=== PATIENT | female | born 1960 | race Caucasian/White ===

== ENCOUNTER 2020-09-06 07:55 | Outpatient (CLI) | payer MEDICARE, OTHER, SELFPAY ==
--- NOTE | ~2020-09-06 | US_ITS ---
US soft tissue chest 09/06/2020 08:41 Indication: Previous bilateral mastectomy. Evaluate for mass. Procedure: High-resolution ultrasound of the chest wall bilaterally Comparison: No prior studies for comparison. Findings: There is normal heterogeneous echotexture throughout the chest wall soft tissues bilaterall y without focal mass or fluid collection. Impression: 1: Normal limited ultrasound of the chest wall bilaterally without evidence for mass. Reviewed, dictated and finalized at location A. ROL OFFICER Impression: 1: Normal limited ultrasound of the chest wall bilaterally without evidence for mass.
--- NOTE | ~2020-09-06 | US_ITS ---
EXAMINATION:US venous doppler LE RT INDICATION:Right calf pain. TECHNIQUE: Multiple grayscale, color flow and Doppler images of the right lower extremity deep venous systems were obtained and reviewed. COMPARISON:09/06/2004 FINDINGS: The common femoral, superficial femoral and popliteal veins demonstrate normal respiratory variation, augmentation and compressibility. Color flow is also seen within the posterior tibial, pe roneal, greater saphenous and profunda veins. IMPRESSION: 1: No lower extremity deep venous thrombosis. Reviewed, dictated and finalized at location A. NG CUTTER
== END 2020-09-06 07:56 | disposition home or self-care (01) ==
PROVIDERS: PCP Internal Medicine; Referring Provider Obstetrics & Gynecology
DX: I82.409 Acute embolism and thrombosis of unspecified deep veins of unspecified lower extremity (principal); M79.661 Pain in right lower leg
CPT/HCPCS: 76604; 93971

== ENCOUNTER 2022-03-18 01:35 | Day surgery (SDC) | payer MEDICARE, OTHER, SELFPAY ==
[2022-03-07 14:27] VITALS: BMI 37.0
--- NOTE | 2022-03-17 09:59 | SUR.PREOP ---
[id number] patient called regarding her magnesium prep. Instructed the patient to not take the magnesium citrate due to recall. Patient voiced understanding.
--- NOTE | 2022-03-17 13:06 | PM.HPGS ---
History of Present Illness History of Present Illness Consent: Risks, benefits, and alternatives have been discussed and questions answered. Patient agrees to proceed with procedure. Chief complaint: neoplasm screening, dysphagia Narrative: Loan Francisco is a 62 year old female Who has been having difficulty swallowing. She is known to have acid reflux. She has been on pantoprazole 20 mg per day. She is also due for colon cancer screening. 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 Pure hypercholesterolemia Thalassemia Type 2 diabetes mellitus with hyperglycemia Surgical History Surgical History H/O breast biopsy H/O cardiac catheterization H/O mastectomy History of cholecystectomy Family History Family History Father Family history of blood dyscrasia Family history of glaucoma Family history of cataracts Asthma Family history of anemia Family history of diabetes mellitus in first degree relative Family history of coronary artery disease Family history of congestive heart failure Family history of heart disease in male family member before age 55 Family history of cardiovascular disease Mother Family history of mental disorder Depression Family history of liver disease Family history of diabetes mellitus in first degree relative Family history of lung disease Family history of hearing loss Family history of lung cancer Social History Social History Smoking status: Never smoker Alcohol intake: never Living arrangements: with family Spiritual care concerns: No Meds Home Medications and Allergies Home Medications Medication Instructions Recorded Confirmed Type alprazolam 0.5 mg tablet 1 mg PO QID PRN Anxiety 06/24/19 03/18/22 History aspirin 81 mg tablet,delayed 81 mg PO DAILY 06/24/19 03/18/22 History release furosemide 20 mg tablet 20 mg PO 2XW 06/24/19 03/18/22 History lamotrigine 100 mg tablet 100 mg PO DAILY 06/24/19 03/18/22 History metformin 1,000 mg tablet 1,000 mg PO BID 06/24/19 03/18/22 History pantoprazole 20 mg tablet,delayed 20 mg PO BID 06/24/19 03/18/22 History release (Protonix) zolpidem 10 mg tablet (Ambien) 5 mg PO ONCE 06/24/19 03/18/22 History cholecalciferol (vitamin D3) 25 25 mcg PO DAILY 06/21/21 03/18/22 History mcg (1,000 unit) capsule dulaglutide 0.75 mg/0.5 mL 0.75 mg subcut WEEKLY 06/21/21 03/18/22 History subcutaneous pen injector (Trulicity) ergocalciferol (vitamin D2) 1,250 1,250 mcg PO WEEKLY 06/21/21 03/18/22 History mcg (50,000 unit) capsule insulin glargine U-300 conc 300 36 unit subcut HS 06/21/21 03/18/22 History unit/mL (1.5 mL) subcutaneous pen (Toujeo SoloStar U-300 Insulin) vitamin E 200 unit capsule 180 unit PO DAILY 06/21/21 03/18/22 History atorvastatin 80 mg tablet 80 mg PO DAILY 03/07/22 03/18/22 History ezetimibe 10 mg tablet 10 mg PO DAILY 03/07/22 03/18/22 History nitrofurantoin 100 mg capsule 100 mg PO Q12H 03/18/22 03/18/22 History Allergies Allergy/AdvReac Type Severity Reaction Status Date / Time levofloxacin Allergy Unknown Hallucinati Verified 03/18/22 06:36 ng Quinolones Allergy Unknown Unknown Verified 03/18/22 06:36 Exam Const: General: alert Orientation/consciousness: patient oriented x3 Resp: Auscultation: clear to auscultation bilaterally Cardio: Rhythm: regular rhythm GI: GI Palp: Yes Soft
[2022-03-18 06:38] VITALS: BP 150/68; PULSE 74; RESP 17; TEMP 36.1; O2SAT 100; BMI 37.2
--- NOTE | 2022-03-18 06:42 | SUR.PREOP ---
Per Dr. Germain give patient ampicillin and gentamicin as ordered,while she is on her oral antibiotic for her UTI, for the coverage of her aortic valve replacement for her EGD and Colonoscopy today.
[2022-03-18] MEDS: LACTATED RINGERS 1,000 ML 150 ML IV CONT (06:56)
[2022-03-18] MEDS: AMPICILLIN 2 GM/NS 100 ML 2 GM/100 ML BAG IVPB (06:58)
[2022-03-18 07:02] LABS: Glucose Point of Care 102 mg/dl (65-105)
--- NOTE | 2022-03-18 07:15 | WPDANESEPPF ---
Anes - Initial Pre Proc Eval Procedure: Operation Date: 03/18/22 07:30 Proposed Procedures p Esophagogastroduodenoscopy & Screening Colonoscopy - Gage Germain MD Date/Time: 03/18/22 07:15 Surgeon: Gage Germain MD Pre Op Diagnosis: neoplasm screening, dysphagia Patient Data Age: 62 Gender: F Height: 1.6 m Weight: 95.3 kg Last Vital Signs Temp 36.1 C L 03/18/22 06:38 Pulse 74 03/18/22 06:38 Resp 17 03/18/22 06:38 BP 150/68 H 03/18/22 06:38 Pulse Ox 100 03/18/22 06:38 O2 Del Method Room Air 03/18/22 06:38 Allergies Allergy/AdvReac Type Severity Reaction Status Date / Time levofloxacin Allergy Unknown Hallucinati Verified 03/18/22 06:36 ng Quinolones Allergy Unknown Unknown Verified 03/18/22 06:36 Home Medications Medication Instructions Recorded Confirmed Type alprazolam 0.5 mg tablet 1 mg PO QID PRN Anxiety 06/24/19 03/18/22 History aspirin 81 mg tablet,delayed 81 mg PO DAILY 06/24/19 03/18/22 History release furosemide 20 mg tablet 20 mg PO 2XW 06/24/19 03/18/22 History lamotrigine 100 mg tablet 100 mg PO DAILY 06/24/19 03/18/22 History metformin 1,000 mg tablet 1,000 mg PO BID 06/24/19 03/18/22 History pantoprazole 20 mg tablet,delayed 20 mg PO BID 06/24/19 03/18/22 History release (Protonix) zolpidem 10 mg tablet (Ambien) 5 mg PO ONCE 06/24/19 03/18/22 History cholecalciferol (vitamin D3) 25 25 mcg PO DAILY 06/21/21 03/18/22 History mcg (1,000 unit) capsule dulaglutide 0.75 mg/0.5 mL 0.75 mg subcut WEEKLY 06/21/21 03/18/22 History subcutaneous pen injector (Trulicity) ergocalciferol (vitamin D2) 1,250 1,250 mcg PO WEEKLY 06/21/21 03/18/22 History mcg (50,000 unit) capsule insulin glargine U-300 conc 300 36 unit subcut HS 06/21/21 03/18/22 History unit/mL (1.5 mL) subcutaneous pen (Richarduthea ScottWinifredar U-300 Insulin) vitamin E 200 unit capsule 180 unit PO DAILY 06/21/21 03/18/22 History atorvastatin 80 mg tablet 80 mg PO DAILY 03/07/22 03/18/22 History ezetimibe 10 mg tablet 10 mg PO DAILY 03/07/22 03/18/22 History nitrofurantoin 100 mg capsule 100 mg PO Q12H 03/18/22 03/18/22 History Laboratory Tests 03/18/22 07:00 POC Capillary Glucose 102 mg/dl mg/dl (65-105) Patient hx anesthesia problems: none Family hx anesthesia problems: none Results Review: All pre-operative results and documents have been reviewed as part of the pre-operative evaluation. 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 Pure hypercholesterolemia Thalassemia Type 2 diabetes mellitus with hyperglycemia Surgical History Surgical History H/O breast biopsy H/O cardiac catheterization H/O mastectomy History of cholecystectomy Family History Family History Father Family history of blood dyscrasia Family history of glaucoma Family history of cataracts Asthma Family history of anemia Family history of diabetes mellitus in first degree relative Family history of coronary artery disease Family history of congestive heart failure Family history of heart disease in male family member before age 55 Family history of cardiovascular disease Mother Family history of mental disorder Depression Family history of liver disease Family history of diabetes mellitus in first degree relative Family history of lung disease Family history of hearing loss Family history of lung cancer Social History Social History Smoking status: Never smoker Alcohol intake: never Living arrange
[2022-03-18] MEDS: GENTAMICIN 80MG/SOD CHL 50 ML 80 MG/50 ML BAG 100 MG IVPB (07:26)
--- NOTE | 2022-03-18 07:46 | SUR.OPER ---
EGD ENDED 737, COLONOSCOPY STARTED 744
[2022-03-18 07:58] VITALS: BP 111/59; PULSE 66; RESP 25; O2SAT 98
[2022-03-18 08:08] VITALS: BP 109/56; PULSE 61; RESP 26; O2SAT 100
[2022-03-18 08:18] VITALS: BP 112/70; PULSE 58; RESP 20; O2SAT 100
[2022-03-18 08:20] LABS: Glucose Point of Care 97 mg/dl (65-105)
== END 2022-03-18 08:28 | disposition home or self-care (01) ==
PROVIDERS: PCP Internal Medicine; Visit Provider Internal Medicine Gastroenterology
PROC: 0DJ08ZZ Inspection of Upper Intestinal Tract, Via Natural or Artificial Opening Endoscopic (ICD-10-PCS; CPT 43235; principal; 2022-03-18 07:30)
DX: Z12.11 Encounter for screening for malignant neoplasm of colon (principal); Z86.010 Personal history of colon polyps; K21.9 Gastro-esophageal reflux disease without esophagitis; K29.70 Gastritis, unspecified, without bleeding; R13.19 Other dysphagia; Z79.82 Long term (current) use of aspirin; Z79.84 Long term (current) use of oral hypoglycemic drugs; Z79.4 Long term (current) use of insulin; F32.A Depression, unspecified; I10 Essential (primary) hypertension; E11.65 Type 2 diabetes mellitus with hyperglycemia; D56.9 Thalassemia, unspecified; E78.00 Pure hypercholesterolemia, unspecified; K75.81 Nonalcoholic steatohepatitis (NASH); E11.42 Type 2 diabetes mellitus with diabetic polyneuropathy; I38 Endocarditis, valve unspecified; Z90.49 Acquired absence of other specified parts of digestive tract; E66.9 Obesity, unspecified; Z68.37 Body mass index [BMI] 37.0-37.9, adult
CPT/HCPCS: 43239; 43450; G0105; 82948; 88305; J0290; J1580; J2704; J7120

== ENCOUNTER 2022-09-07 15:40 | Outpatient (CLI) | payer MEDICARE, OTHER, SELFPAY ==
[2022-09-07 16:29] LABS: Basophils Absolute Auto 0.1 K/mm3 (0.0-0.1); Basophils Percent Auto 0.4 % (0.2-1.2); Eosinophils Absolute Auto 0.7 K/mm3 (0-0.3); Eosinophils Percent Auto 4.8 % (0-4.4); Hematocrit 36.4 % (37.0-47.0); Hemoglobin 11.1 g/dL (12.0-15.0); Immature Granulocyte Absolute 0.05 K/mm3 (0.00-0.031); Immature Granulocyte Percent A 0.4 % (0-0.5); Lymphocytes Absolute Auto 3.72 K/mm3 (0.9-3.2); Lymphocytes Percent Auto 26.8 % (18.3-44.2); Mean Corpuscular HGB Conc 30.5 g/dl (32-36); Mean Corpuscular Hemoglobin 22.8 pg (26-34); Mean Corpuscular Volume 74.7 fl (80-100); Mean Platelet Volume 9.6 fl (7.4-10.4); Monocytes Absolute Auto 1.1 K/mm3 (0.1-0.6); Monocytes Percent Auto 8.1 % (2.6-8.5); Neutrophils Absolute Auto 8.3 K/mm3 (1.3-6.7); Neutrophils Percent Auto 59.5 % (45.5-73.1); Platelet Count Result 331 k/mm3 (150-375); Red Blood Count 4.87 M/mm3 (4.2-5.4); Red Cell Distribution Width 15.9 % (11.5-14.5); White Blood Count 13.9 K/mm3 (4.5-10.0)
[2022-09-07 16:43] LABS: Ovalocytes 1+ (NORMAL); Platelet Estimate Adequate (Adequate); Schistocytes None Seen (NORMAL)
== END 2022-09-07 15:41 | disposition home or self-care (01) ==
PROVIDERS: PCP Internal Medicine; Visit Provider Nurse Practitioner Family
DX: J45.909 Unspecified asthma, uncomplicated (principal)
CPT/HCPCS: 36415; 85025

== ENCOUNTER 2022-09-24 08:47 | Outpatient (CLI) | payer MEDICARE, OTHER, SELFPAY ==
[2022-09-28 23:59] LABS: Immunoglobulin E 346 kU/L (<=114)
== END 2022-09-24 08:48 | disposition home or self-care (01) ==
LOC: ANHLAB 08:57
PROVIDERS: PCP Internal Medicine; Visit Provider Nurse Practitioner Family
DX: J45.909 Unspecified asthma, uncomplicated (principal)
CPT/HCPCS: 36415; 82785

== ENCOUNTER 2022-10-13 11:02 | Outpatient (CLI) | payer MEDICARE, OTHER, SELFPAY ==
[2022-10-13 11:37] LABS: Basophils Absolute Auto 0.1 K/mm3 (0.0-0.1); Basophils Percent Auto 0.5 % (0.2-1.2); Eosinophils Absolute Auto 0.5 K/mm3 (0-0.3); Eosinophils Percent Auto 4.7 % (0-4.4); Hematocrit 36.6 % (37.0-47.0); Hemoglobin 11.3 g/dL (12.0-15.0); Immature Granulocyte Absolute 0.03 K/mm3 (0.00-0.031); Immature Granulocyte Percent A 0.3 % (0-0.5); Lymphocytes Absolute Auto 2.68 K/mm3 (0.9-3.2); Mean Corpuscular HGB Conc 30.9 g/dl (32-36); Mean Corpuscular Hemoglobin 23.2 pg (26-34); Mean Corpuscular Volume 75.2 fl (80-100); Mean Platelet Volume 9.5 fl (7.4-10.4); Monocytes Absolute Auto 0.7 K/mm3 (0.1-0.6); Monocytes Percent Auto 6.7 % (2.6-8.5); Neutrophils Absolute Auto 6.7 K/mm3 (1.3-6.7); Neutrophils Percent Auto 62.8 % (45.5-73.1); Platelet Count Result 265 k/mm3 (150-375); Red Blood Count 4.87 M/mm3 (4.2-5.4); Red Cell Distribution Width 15.7 % (11.5-14.5); White Blood Count 10.7 K/mm3 (4.5-10.0)
== END 2022-10-13 11:03 | disposition home or self-care (01) ==
PROVIDERS: PCP Internal Medicine; Visit Provider Nurse Practitioner Family
DX: J45.909 Unspecified asthma, uncomplicated (principal)
CPT/HCPCS: 36415; 85025

== ENCOUNTER 2024-11-06 00:36 | Day surgery (SDC) | payer MEDICARE, OTHER, SELFPAY ==
[2024-10-29 13:57] VITALS: BMI 35.9
--- OUTSIDE RECORDS SUMMARY | 2024-11-06 00:38 | XMS_ITS | CONTINUITY OF CARE DOCUMENT ---
Author Name amara maloney Address Unknown Organization [facility] Address [address] [place] [address] Phone [phone] Care Team Providers Care Geological Drafter Name Role Phone Kvng Valverde MD Unavailable Maurice Daniels MD Unavailable [phone] Maurice Daniels MD Unavailable [phone] PROBLEMS Condition Status Date Provider Notes SVT, paroxysmal active Silverio Ahmedzai SOB active Kelly Andrade RN THALASSEMIA NEC active Amber Go DEPRESSION active Amber Go DIABETES MELLITUS active Amber Go HTN-06/02 ECHO MILD EF 60 completed - Dilan Green MD ASTHMA;per mila lemos active Mook Caldwell DYSLIPIDEMIA;on rx active Mook Green MD CHEST PAIN-07/26 CATH NL completed - Mook london MD CHEST PAIN-11/27 NUC NEG completed - Mook gomez MD CAD-06/02 CAROTID NEG completed - Mook combs MD AORTIC STENOSIS, s/p 21mm C.E AVR 02/06, single vsl CABG w/SVG to RCA 01/18/19 CNE active Kvng Valverde MD DIABETES MELLITUS, TYPE II, UNCONTROLLED completed - Mook Green MD r/o CAD;neg cath 06, neg nuc 13 completed - Kvng Valverde MD Carotid artery disease, 50-69% LICA,<50% SHA, 09/2024 active Silverio Obando Microvascular angina;on ecp completed 2013 - Kvng Valverde MD Obesity; active Kvng Valverde MD Sleep apnea;on cpap active Mook Green MD Family History of Hypertension: completed - Kvng Valverde MD Chest pain completed - Kvng Valverde MD Fatigue--echo ef nl, 05/2024 active Silverio parrai Edema active Kvng Valverde MD Back pain, lower active Lisa Manuel [employer] WORK[employer] GERD active Kvng Valverde MD CAD s/p CABG single vsl SVG-RCA active Kvng Valverde MD Syncope active Silverio Obando Chest discomfort--normal stress nuc 10/2021 active Kvng Valverde MD Cough active Kvng Valverde MD Elevated blood pressure active Silverio Clark i Venous insufficiency active Kvng Valverde MD Leg cramps, bilateral active 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 Hypertension active Kvng Valverde MD Cardiology examination active Silverio Obando Memory impairment active Silverio Obando ENCOUNTERS Date Type Provider Location Encounter Diag nosis - In-person encounter Office Visit Kvng Valver[facility] Carotid artery disease, 50-69% LICA,<50% SHA, 09/2024 - In-person encounter Office Visit Kvng Valverde [facility] Fatigue--echo ef nl, ardiology examinationMemory impairment - In-person encounter Office Visit Kvng Valverde MD [facility] - In-person encounter Office Visit Kvng Valverde MD [facility] - In-person encounter Office Visit Kvng Valverde MD [facility] - In-person encounter Office Visit Kvng Valverde MD [facility] AORTIC STENOSIS, s/p 21mm C.E AVR 02/06, single vsl CABG w/SVG to RCA 01/18/19 CNECarotid artery disease, 50-69% LICA,<50% SHA, 09/2024Fatigue--echo ef nl, 05/2024Hypertension - In-person encounter Office Visit Kvng Valverde MD [facility] - In-person encounter Office Visit Kvng Valverde MD [facility] - In-person encounter Office Visit Kvng Valverde MD [facility] Fatigue--echo ef nl, 05/2024 - In-person encounter Office Visit Toney Pulido MD [facility] Leg cramps, bilateral - In-person encounter Office Visit Kvng Valverde MD [facility] Venous insufficiency - In-person encounter Office Visit Kvng Valverde MD [facility] Elevated blood pressure - In-person encounter Office Visit Kvng Valverde MD [facility] - In-person encounter Office Visit Kvng Valverde MD [facility] Cough - In-person encounter Office Visit Kvng Valverde MD [facility] - In-person encounter Office Visit Kvng Valverde MD [facility] Carotid artery disease, 50-69% LICA,<50% SHA, 09/2024Fatigue--echo ef nl, hest discomfort--normal stress nuc 10/2021 - In-person encounter Office Visit Kvng Valverde MD [facility] Fatigue--echo ef nl, 05/2024Syncope - In-person encounter Office Visit Kvng Valverde MD [facility] AORTIC STENOSIS, s/p 21mm C.E AVR 02/06, single vsl CABG w/SVG to RCA 01/18/19 CNECAD s/p CABG single vsl SVG-RCA - In-person encounter Office Visit Kvng Valverde MD [facility] Carotid artery disease, 50-69% LICA,<50% SHA, 09/2024 - In-person encounter Office Visit Kvng Valverde MD [facility] - In-person encounter Office Visit Kvng Valverde MD [facility] - In-person encounter Office Visit Kvng Valverde MD [facility] - In-person encounter Office Visit Kvng Valverde MD [facility] GERD - In-person encounter Office Visit Kvng Valverde MD [facility] - In-person encounter Office Visit Kvng Valverde MD [facility] AORTIC STENOSIS, s/p 21mm C.E AVR 02/06, single vsl CABG w/SVG to RCA 01/18/19 CNEr/o CAD;neg cath 06, neg nuc 13Chest pain - In-person encounter Office Visit Kvng Valverde MD [facility] - In-person encounter Office Visit Kvng Valvrede MD [facility] AORTIC STENOSIS, s/p 21mm C.E AVR 02/06, single vsl CABG w/SVG to RCA 01/18/19 CNE - In-person encounter Office Visit Kvng Valverde MD [facility] - In-person encounter Office Visit Kvng Valverde MD [facility] Back pain, lower - In-person encounter Office Visit Kvng Valverde MD [facility] - In-person encounter Office Visit Kvng Valverde MD [facility] Edema - In-person encounter Office Visit Kvng Valverde MD [facility] - In-person encounter Office Visit Kvng Valverde MD [facility] - In-person encounter Office Visit Kvng Valverde MD [facility] - In-person encounter Office Visit Kvng Valverde MD [facility] Microvascular angina;on ecpFamily History of Hypertension: - In-person encounter Office Visit Kvng Valverde MD [facility] AORTIC STENOSIS, s/p 21mm C.E AVR 02/06, single vsl CABG w/SVG to RCA 01/18/19 CNE - In-person encounter Office Visit Kvng Valverde MD [facility] - In-person encounter Office Visit Kvng Valverde MD [facility] - In-person encounter Office Visit Kvng Valverde MD [facility] - In-person encounter Office Visit Kvng Valverde MD [facility] - In-person encounter Office Visit Kvng Valverde MD [facility] AORTIC STENOSIS, s/p 21mm C.E AVR 02/06, single vsl CABG w/SVG to RCA 01/18/19 CNE - In-person encounter Office Visit Kvng Valverde MD [facility] Obesity; - In-person encounter Office Visit Kvng Valverde MD [facility] - In-person encounter Office Visit Kvng Valverde MD [facility] Obesity; - In-person encounter Office Visit Mook Green MD [facility] HTN-06/02 ECHO MILD EF 60ASTHMA;per pulmna mdDYSLIPIDEMIA;on rxCHEST PAIN-07/26 CATH NLCHEST PAIN-11/27 NUC NEGCAD-06/02 CAROTID NEGAORTIC STENOSIS, s/p 21mm C.E AVR 02/06, single vsl CABG w/SVG to RCA 01/18/19 CNEDIABETES MELLITUS, TYPE II, UNCONTROLLEDCarotid artery disease, 50-69% LICA,<50% SHA, 09/2024Obesity;Sleep apnea;on cpap - In-person encounter Office Visit Kvng Valverde MD [facility] - In-person encounter Office Visit Kvng Valverde MD [facility] AORTIC STENOSIS, s/p 21mm C.E AVR 02/06, single vsl CABG w/SVG to RCA 01/18/19 CNE - In-person encounter Office Visit Kvng Valverde MD [facility] - In-person encounter Office Visit Kvng Valverde MD [facility] - In-person encounter Office Visit Kvng Valverde MD [facility] - In-person encounter Office Visit Kvng Valverde MD [facility] VITAL SIGNS Date Observation Value Provider Body Mass Index (Ratio) 34.93 kg/m2 Antwan Valverde MD blood pressure, diastolic 81 mm[Hg] Ti gianluca Patel blood pressure, systolic 143 mm[Hg] Margareth Patel blood pressure, cuff size regular Harish Patel oxygen saturation, oximetry 96 % Stephanie Patel pulse rate 75 /min Stephanie sweet weight E&M 191 [lb_av] Stephanie Kenna sweet height E&M 62 [in_i] Stephanie sweet blood pressure, diastolic 81 mm[Hg] Karla nkLogic blood pressure, systolic 135 mm[Hg] Florecita Retanaogic blood pressure, diastolic 81 mm[Hg] [address] [facility] blood pressure, systolic 135 mm[Hg] Esther hernandez [facility] blood pressure, cuff size regular [address] [facility] oxygen saturation, oximetry 99 % Tarah [facility] pulse rate 78 /min Tarah [facility] Body Mass Index (Ratio) 41.15 kg/m2 Champyl garret [facility] weight in kilograms E&M 102.06 kg Champyl garret [facility] weight E&M 225 [lb_av] Tarah [facility] height E&M 62 [in_i] Tarah [facility] height in centimeters E&M 157.[address] [facility] Body Mass Index (Ratio) 42.79 kg/m2 Antwan Valverde MD weight E&M 234 [lb_av] Silverio Obando Body Mass Index (Ratio) 41.70 kg/m2 Antwan Valverde MD pulse rate 78 /min Mohini Walker blood pressure, cuff size large Charles jerilynkatia Walker blood pressure, diastolic 98 mm[Hg] Ta bitha Walker blood pressure, systolic 128 mm[Hg] Tab itha Walker oxygen saturation, oximetry 96 % Mohini Walker respiratory rate E&M 12 /min Mohini Walker weight E&M 228 [lb_av] Mohini Walker height E&M 62 [in_i] Mohini Walker Body Mass Index (Ratio) 41.51 kg/m2 Antwan Valverde MD blood pressure, cuff size regular Son rret blood pressure, diastolic 74 mm[Hg] Ja rret blood pressure, systolic 143 mm[Hg] [facility] pulse rate 64 /min Arnulfo oxygen saturation, oximetry 95 % Arnulfo respiratory rate E&M 16 /min Arnulfo weight E&M 227 [lb_av] Arnulfo height E&M 62 [in_i] [facility] y Body Mass Index (Ratio) 40.60 kg/m2 Antwan Valverde MD pulse rate 78 /min [facility] blood pressure, cuff size regular [facility] blood pressure, diastolic 64 mm[Hg] [facility] blood pressure, systolic 118 mm[Hg] [facility] oxygen saturation, oximetry 97 % [facility] respiratory rate E&M 16 /min [facility] weight E&M 222 [lb_av] [facility] height E&M 62 [in_i] [facility] Body Mass Index (Ratio) 39.50 kg/m2 Antwan Valverde MD blood pressure, cuff size regular [facility] blood pressure, diastolic 66 mm[Hg] [facility] blood pressure, systolic 134 mm[Hg] [facility] pulse rate 72 /min [facility] oxygen saturation, oximetry 96 % [facility] respiratory rate E&M 12 /min [facility] weight E&M 216 [lb_av] Arnulfo height E&M 62 [in_i] [facility] y Body Mass Index (Ratio) 39.87 kg/m2 Antwan Valverde MD blood pressure, diastolic 80 mm[Hg] mae Reed blood pressure, systolic 157 mm[Hg] She marleny Reed respiratory rate E&M 20 /min Lisa Reed weight E&M 218 [lb_av] Lisa Reed pulse rate 66 /min Lisa Reed oxygen saturation, oximetry 99 % Lisa Reed blood pressure, cuff size regular Sh mae Reed height E&M 62 [in_i] Lisa Reed Body Mass Index (Ratio) 40.05 kg/m2 Antwan Valverde MD blood pressure, cuff size regular Son blood pressure, diastolic 70 mm[Hg] Ja rret blood pressure, systolic 143 mm[Hg] Jar ret pulse rate 64 /min Arnulfo oxygen saturation, oximetry 98 % Arnulfo respiratory rate E&M 12 /min Arnulfo weight E&M 219 [lb_av] Arnulfo y height E&M 62 [in_i] Arnulfo Body Mass Index (Ratio) 39.69 kg/m2 Aneudy Mckeon blood pressure, diastolic 69 mm[Hg] Demi Zarate blood pressure, systolic 161 mm[Hg] Coby Zarate oxygen saturation, oximetry 99 % Va Zarate pulse rate 73 /min Vagarret Zarate weight E&M 217 [lb_av] Va Elliot blood pressure, cuff size large An thomas Zarate height E&M 62 [in_i] Va Zarate Body Mass Index (Ratio) 39.36 kg/m2 Antwan Valverde MD blood pressure, diastolic -1 mm[Hg] Karla nkLogic blood pressure, systolic 133 mm[Hg] Florecita kLogic blood pressure, diastolic 67 mm[Hg] St kendy Yin blood pressure, systolic 133 mm[Hg] Amina Yin oxygen saturation, oximetry 97 % Dottie Yin pulse rate 81 /min Dottie Yin respiratory rate E&M 18 /min Dottie lynchs weight E&M 215.2 [lb_av] Dottie Yin height E&M 62 [in_i] Dottie Yin blood pressure, diastolic 59 mm[Hg] mae Reed blood pressure, systolic 152 mm[Hg] [facility] marleny Reed oxygen saturation, oximetry 98 % Lisa Reed blood pressure, cuff size regular mae Reed height E&M 62 [in_i] Lisa Reed pulse rate 80 /min Lisa Reed respiratory rate E&M 20 /min Lisa Reed Body Mass Index (Ratio) 39.32 kg/m2 nAtwan Valverde MD blood pressure, cuff size large Ri ofelia Valverdeerson blood pressure, diastolic 72 mm[Hg] Ri ofelia Blake blood pressure, systolic 139 mm[Hg] Gigi lissette Blake oxygen saturation, oximetry 96 % Katerin Blake respiratory rate E&M 16 /min Bud Blake pulse rate 75 /min Katerin Valverdeandrea gallegos weight E&M 215 [lb_av] Katerin Najera son height E&M 62 [in_i] Katerin Valverdeandrea gallegos Body Mass Index (Ratio) 39.87 kg/m2 Antwan Valverde MD blood pressure, diastolic 63 mm[Hg] Mi ofelia Feldman blood pressure, systolic 132 mm[Hg] [facility] lissette Feldman pulse rate 83 /min Liliana caldwell oxygen saturation, oximetry 97 % Liliana Feldman weight E&M 218 [lb_av] Liliana Catalan john respiratory rate E&M 16 /min Tiffanie evans [place] blood pressure, cuff size large Keyla gilbert [place] height E&M 62 [in_i] Liliana Catalan john Body Mass Index (Ratio) 39.94 kg/m2 Antwan Valverde MD blood pressure, diastolic 72 mm[Hg] St acjoaquin Yin blood pressure, systolic 153 mm[Hg] Sta drew Yin oxygen saturation, oximetry 95 % Dottiedrew Yin pulse rate 72 /min Dottiedrew Yin blood pressure, cuff size regular St acjoaquin Yin respiratory rate E&M 16 /min Dottiedrew rodarte weight E&M 218.4 [lb_av] Dottie Humphrey height E&M 62 [in_i] Dottiedrew Yin Body Mass Index (Ratio) 39.87 kg/m2 Antwan Valverde MD blood pressure, diastolic 70 mm[Hg] Michael Obando blood pressure, systolic 130 mm[Hg] Narcisa Obando oxygen saturation, oximetry 96 % Silverio Obando pulse rate 76 /min Silverio Obando weight E&M 218 [lb_av] Silverio claudette Body Mass Index (Ratio) 39.14 kg/m2 Antwan Valverde MD blood pressure, diastolic -1 mm[Hg] Li nkLogic blood pressure, systolic 130 mm[Hg] Florecita kLogic blood pressure, diastolic 61 mm[Hg] Sa ra Sharp blood pressure, systolic 130 mm[Hg] Nilo a Sharp oxygen saturation, oximetry 96 % Shavon Sharp respiratory rate E&M 17 /min Shavon Si ms pulse rate 77 /min Shavon Sharp weight E&M 214 [lb_av] Shavon Sharp blood pressure, cuff size large Sa ra Sharp height E&M 62 [in_i] Shavon Sharp Body Mass Index (Ratio) 40.23 kg/m2 Antwan Valverde MD pulse rate 72 /min Zonia Campbel l oxygen saturation, oximetry 97 % Zoniaethan Ochoa blood pressure, cuff size regular Cy ntsiobhan Ochoa blood pressure, diastolic 68 mm[Hg] Cy ntseverinoa Ochoa blood pressure, systolic 122 mm[Hg] Hayley ethan Ochoa respiratory rate E&M 16 /min Zonia Ochoa weight E&M 220 [lb_av] Zonia Campbel l height E&M 62 [in_i] Zonia Campbel l Body Mass Index (Ratio) 40.23 kg/m2 Antwan Valverde MD blood pressure, cuff size large Ke rri Gruenenfelder blood pressure, diastolic 60 mm[Hg] Ke rri Gruenenfelder blood pressure, systolic 120 mm[Hg] Ker ri Tuanuenenfelder oxygen saturation, oximetry 98 % Shanice Gruenenfelder respiratory rate E&M 16 /min Shanice G ruenenfelder pulse rate 71 /min Shanice Gruenenfe lder weight E&M 220 [lb_av] Shanice Gruenenfe lder height E&M 62 [in_i] Shanice Gruenenfe lder Body Mass Index (Ratio) 41.15 kg/m2 Antwan Valverde MD blood pressure, diastolic 70 mm[Hg] Nadia Chand blood pressure, systolic 147 mm[Hg] Naomi stity Jagruti oxygen saturation, oximetry 98 % Chastity Jagruti pulse rate 76 /min Chastity Jagruti respiratory rate E&M 16 /min Chastit y Jagruti weight E&M 225 [lb_av] Chastity Jagruti height E&M 62 [in_i] Chastity Jagruti Body Mass Index (Ratio) 42.61 kg/m2 Antwan Valverde MD blood pressure, cuff size large Ulisses nelson Marsha blood pressure, diastolic 60 mm[Hg] Ulisses nelson Marsha blood pressure, systolic 116 mm[Hg] Linnea prince Marsha oxygen saturation, oximetry 97 % David Marsha respiratory rate E&M 16 /min David Marsha pulse rate 74 /min David Marsha weight E&M 233 [lb_av] David Marsha height E&M 62 [in_i] David Marsha Body Mass Index (Ratio) 42.25 kg/m2 Antwan Valverde MD pulse rate, standing 89 /min Zonia Ochoa blood pressure, diastolic, standing 66 mm [Hg] Zonia Ochoa blood pressure, systolic, standing 139 mm [Hg] Zonia Ochoa blood pressure, diastolic 86 mm[Hg] Cy nthia Don blood pressure, systolic 125 mm[Hg] Hayley thia Ochoa pulse rate 80 /min Zonia Campbel l oxygen saturation, oximetry 97 % Zonia Ochoa respiratory rate E&M 20 /min Zonia Ochoa weight E&M 231 [lb_av] Zonia Campbel l blood pressure, cuff size regular Cy nthia Ochoa height E&M 62 [in_i] Zonia Huitronbel l temperature site temporal Sendy Tank sley temperature E&M 97.1 [degF] Sendy Tanks hemant Body Mass Index (Ratio) 42.61 kg/m2 Antwan Valverde MD respiratory rate E&M 16 /min [facility] blood pressure, diastolic 74 mm[Hg] [facility], [facility] 124 mm[Hg] Ton [facility] oxygen saturation, oximetry 98 % [facility] pulse rate 79 /min [facility] weight E&M 233 [lb_av] [facility] height E&M 62 [in_i] [facility] Body Mass Index (Ratio) 40.97 kg/m2 Antwan Valverde MD blood pressure, cuff size regular Cy jo ann Ochoa blood pressure, diastolic 80 mm[Hg] Cy jo ann Ochoa blood pressure, systolic 142 mm[Hg] Hayley ethan Ochoa oxygen saturation, oximetry 98 % Zoniaethan Ochoa respiratory rate E&M 16 /min Zonia Ochoa pulse rate 76 /min Zonia Govea l weight E&M 224 [lb_av] Zonia Govea l height E&M 62 [in_i] Zonia Govea l Body Mass Index (Ratio) 40.97 kg/m2 Antwan Valverde MD blood pressure, diastolic 60 mm[Hg] Ki llniki Dixon blood pressure, systolic 100 mm[Hg] Roque Awanam pulse rate 84 /min Windham Dixon oxygen saturation, oximetry 98 % Delfino Dixon respiratory rate E&M 16 /min [place]ham Dixon weight E&M 224 [lb_av] Delfino Dixon height E&M 62 [in_i] Delfino Dixon Body Mass Index (Ratio) 43.53 kg/m2 Antwan Valverde MD blood pressure, diastolic 80 mm[Hg] Ulisses jones ORonaldo blood pressure, systolic 142 mm[Hg] Carrie smith ORonaldo oxygen saturation, oximetry 97 % Jeanine ORonaldo respiratory rate E&M 16 /min Jeanine ORonaldo pulse rate 81 /min Jeanine ORonaldo weight E&M 238 [lb_av] Jeanine ORonaldo height E&M 62 [in_i] [facility] ORonaldo Body Mass Index (Ratio) 43.53 kg/m2 Antwan Valverde MD blood pressure, cuff size large Ke rri [facility] center[facility] blood pressure, diastolic 70 mm[Hg] Ke rri Junior blood pressure, systolic 132 mm[Hg] [place] oxygen saturation, oximetry 98 % Shanice Pacheco respiratory rate E&M 18 /min Shanice live pulse rate 96 /min Shanice Gonzales [facility] weight E&M 238 [lb_av] Shanice Gonzales er height E&M 62 [in_i] Shanice Gonzales er Body Mass Index (Ratio) 44.07 kg/m2 Antwan Valverde MD blood pressure, diastolic 90 mm[Hg] Da hussein Shen blood pressure, systolic 142 mm[Hg] Dac ia Shen oxygen saturation, oximetry 95 % Amarilis Shen respiratory rate E&M 18 /min Amarilis V oss pulse rate 78 /min Amarilis Shen weight E&M 241 [lb_av] Amarilis Shen height E&M 62 [in_i] Amarilis Shen Body Mass Index (Ratio) 44.62 kg/m2 Antwan Valverde MD blood pressure, diastolic 80 mm[Hg] Da hussein Marydel blood pressure, systolic 128 mm[Hg] Dac ia Shen oxygen saturation, oximetry 94 % Amarilis Marydel respiratory rate E&M 16 /min Amarilis V oss pulse rate 75 /min Amarilis Marydel weight E&M 244 [lb_av] Amarilis Shen height E&M 62 [in_i] Amarilis Shen Body Mass Index (Ratio) 45.17 kg/m2 Antwan Valverde MD blood pressure, diastolic 76 mm[Hg] Da hussein Shen blood pressure, systolic 138 mm[Hg] Dac ia Shen oxygen saturation, oximetry 96 % Amarilis Marydel respiratory rate E&M 20 /min Amarilis V oss pulse rate 71 /min Amarilis Shen weight E&M 247 [lb_av] Amarilis Shen height E&M 62 [in_i] Amarilis Marydel Body Mass Index (Ratio) 43.93 kg/m2 Antwan Valverde MD pulse rate #2 56 [facility] blood pressure, koehler tolic, second observation 79 mm[Hg] [facility] blood pressure, syst olic, second observation 131 mm[Hg] [facility], [facility] 98 % [facility] pulse [facility] 56 /min [facility], diastolic 79 mm[Hg] Vi ctoria Ted blood pressure, systolic 131 mm[Hg] Merritt cari Ted blood pressure, diastolic 70 mm[Hg] Ulisses Etienne blood pressure, systolic 145 mm[Hg] Carrie Etienne oxygen saturation, oximetry 96 % Brandan Etienne respiratory rate E&M 18 /min Ishan Etienne pulse rate 70 /min Brandan jc weight E&M 240.2 [lb_av] Brandan mccormick height E&M 62 [in_i] Brandan jc pulse rate #2 59 [facility] blood pressure, koehler tolic, second observation 78 mm[Hg] [facility], syst olic, second observation 119 mm[Hg] [facility], [facility]xim[facility] 98 % Rani [facility] pulse rate 59 /min Rani blood pressure, diastolic 78 mm[Hg] Vi [facility] Ted blood pressure, systolic 119 mm[Hg] Merritt cari Tebid pulse rate #2 65 [facility] blood pressure, koehler tolic, second observation 76 mm[Hg] Rani Tebid blood pressure, syst olic, second observation 132 mm[Hg] Rani Tebid oxygen saturation, oximetry 98 % Rani Tebi pulse rate 65 /min Rani Tebid blood pressure, diastolic 76 mm[Hg] Vi [facility] Tebid blood pressure, systolic 132 mm[Hg] Merritt cari Tebid pulse rate #2 71 Rani Tebid blood pressure, koehler tolic, second observation 71 mm[Hg] Rani Tebid blood pressure, syst olic, second observation 128 mm[Hg] Rani Tebid oxygen saturation, oximetry 98 % Rani Tebid pulse rate 71 /min Rani Tebid blood pressure, diastolic 71 mm[Hg] Vi ctoria Tebid blood pressure, systolic 128 mm[Hg] Merritt cari Tebid pulse rate #2 61 Rani Ted blood pressure, koehler tolic, second observation 78 mm[Hg] Rani Tebid blood pressure, syst olic, second observation 133 mm[Hg] Rani d oxygen saturation, oximetry 98 % Rani d pulse rate 61 /min [place] d blood pressure, diastolic 78 mm[Hg] Vi ctoria Tebid blood pressure, systolic 133 mm[Hg] Merritt cari Tebid pulse rate #2 65 [place] d blood pressure, koehler tolic, second observation 73 mm[Hg] Rani d blood pressure, syst olic, second observation 126 mm[Hg] Rani d oxygen saturation, oximetry 98 % [place] pulse rate 65 /min [place] blood pressure, diastolic 73 mm[Hg] Vi ctoria Ted blood pressure, systolic 126 mm[Hg] Merritt cari Ted pulse rate #2 63 [place] blood pressure, koehler tolic, second observation 76 mm[Hg] [place] blood pressure, syst olic, second observation 135 mm[Hg] Rani oxygen saturation, oximetry 98 % Rani pulse rate 63 /min [place] blood pressure, diastolic 76 mm[Hg] Vi ctoria Ted blood pressure, systolic 135 mm[Hg] Merritt cari Tebid pulse rate #2 71 [place] blood pressure, koehler tolic, second observation 76 mm[Hg] [place] d blood pressure, syst olic, second observation 125 mm[Hg] Rani d oxygen saturation, oximetry 98 % Rani pulse rate 71 /min [place] blood pressure, diastolic 76 mm[Hg] Vi ctoria Tebid blood pressure, systolic 125 mm[Hg] Merritt andersonia Tebid pulse rate #2 68 [place] blood pressure, koehler tolic, second observation 73 mm[Hg] Rani blood pressure, syst olic, second observation 125 mm[Hg] Rani oxygen saturation, oximetry 98 % Rani pulse rate 68 /min [place] blood pressure, diastolic 73 mm[Hg] Vi idoria blood pressure, systolic 125 mm[Hg] Merritt cari d pulse rate #2 69 [place] blood pressure, koehler tolic, second observation 78 mm[Hg] Rani blood pressure, syst olic, second observation 129 mm[Hg] Rani oxygen saturation, oximetry 98 % Rani pulse rate 69 /min [place] blood pressure, diastolic 78 mm[Hg] Vi [facility] d blood pressure, systolic 129 mm[Hg] Merritt cari d pulse rate #2 72 [place] blood pressure, koehler tolic, second observation 80 mm[Hg] Rani blood pressure, syst olic, second observation 141 mm[Hg] Rani oxygen saturation, oximetry 98 % Rani pulse rate 72 /min [place] blood pressure, diastolic 80 mm[Hg] Vi [facility] d blood pressure, systolic 141 mm[Hg] Merritt cari d pulse rate #2 58 [place] blood pressure, koehler tolic, second observation 70 mm[Hg] Rani blood pressure, syst olic, second observation 143 mm[Hg] [place] oxygen saturation, oximetry 98 % [place] pulse rate 58 /min [facility] blood pressure, diastolic 70 mm[Hg] Vi idoria d blood pressure, systolic 143 mm[Hg] Merritt andersonia Tebid pulse rate #2 73 [facility] blood pressure, koehler tolic, second observation 74 mm[Hg] [facility] blood pressure, syst olic, second observation 119 mm[Hg] [facility] oxygen saturation, oximetry 98 % [facility] pulse rate 73 /min [facility] blood pressure, diastolic 74 mm[Hg] Vi idoria Ted blood pressure, systolic 119 mm[Hg] [facility] blood pressure, koehler tolic, second observation 83 mm[Hg] [facility] blood pressure, syst olic, second observation 139 mm[Hg] [facility] oxygen saturation, oximetry 98 % [facility] pulse rate 69 /min [facility] blood pressure, diastolic 83 mm[Hg] [facility], [facility][Hg] [facility]2 64 [place] blood pressure, koehler tolic, second observation 72 mm[Hg] [facility] blood pressure, syst olic, second observation 131 mm[Hg] [facility] oxygen saturation, oximetry 98 % [facility] pulse rate 64 /min [facility] blood pressure, diastolic 72 mm[Hg] Vi [facility] Ted blood pressure, systolic 131 mm[Hg] [facility]2 66 [facility] blood pressure, koehler tolic, second observation 76 mm[Hg] [facility] blood pressure, syst olic, second observation 138 mm[Hg] [facility] oxygen saturation, oximetry 98 % [facility] pulse rate 66 /min [facility] blood pressure, diastolic 76 mm[Hg] Vi ctoria Ted blood pressure, systolic 138 mm[Hg] Merritt cari d pulse rate #2 68 [place] blood pressure, koehler tolic, second observation 79 mm[Hg] Rani blood pressure, syst olic, second observation 125 mm[Hg] [facility] oxygen saturation, oximetry 98 % Rani pulse rate 68 /min [place] blood pressure, diastolic 79 mm[Hg] Vi ctoria Ted blood pressure, systolic 125 mm[Hg] Merritt cari d pulse rate #2 65 [place] blood pressure, koehler tolic, second observation 71 mm[Hg] [facility] blood pressure, syst olic, second observation 125 mm[Hg] [facility] oxygen saturation, oximetry 98 % [place] pulse rate 65 /min Rani blood pressure, diastolic 71 mm[Hg] Vi [facility] blood pressure, systolic 125 mm[Hg] Merritt cari d pulse rate #2 67 [place] blood pressure, koehler tolic, second observation 73 mm[Hg] [facility] blood pressure, syst olic, second observation 130 mm[Hg] Rani oxygen saturation, oximetry 98 % Rani pulse rate 67 /min Rani blood pressure, diastolic 73 mm[Hg] [facility], [facility] 130 mm[Hg] Merritt [place] d pulse rate #2 66 [place] blood pressure, koehler tolic, second observation 71 mm[Hg] [place] blood pressure, syst olic, second observation 132 mm[Hg] [facility] oxygen saturation, oximetry 98 % [facility] 66 /min [place] Tebid blood pressure, diastolic 71 mm[Hg] Vi ctoria Tebid blood pressure, systolic 132 mm[Hg] Merritt cari Tebid pulse rate #2 67 [place] Tebid blood pressure, koehler tolic, second observation 73 mm[Hg] Rani Tebid blood pressure, syst olic, second observation 135 mm[Hg] Rani Tebid oxygen saturation, oximetry 98 % Rani Tebid pulse rate 67 /min [place] Tebid blood pressure, diastolic 73 mm[Hg] Vi [facility] Tebid blood pressure, systolic 135 mm[Hg] Merritt cari Tebid pulse rate #2 77 [facility], koehler tolic, second observation 80 mm[Hg] [facility] blood [facility], syst olic, second observation 130 mm[Hg] [facility], oximetry 98 % [facility] pulse [facility] 77 /min [place] Tebid blood pressure, diastolic 80 mm[Hg] Vi [facility] Tebid blood pressure, systolic 130 mm[Hg] Merritt cari Tebid pulse rate #2 62 [facility], koehler tolic, second observation 78 mm[Hg] [place] Tebid blood pressure, syst olic, second observation 136 mm[Hg] [place] Tebid oxygen saturation, oximetry 98 % [facility] 62 /min [place] Tebid blood pressure, diastolic 78 mm[Hg] Vi [facility] Tebid blood pressure, systolic 136 mm[Hg] Merritt cari Tebid pulse rate #2 91 [facility], koehler tolic, second observation 81 mm[Hg] [facility] blood [facility], syst olic, second observation 117 mm[Hg] [facility] oxygen [facility], oximetry 98 % [facility] pulse rate 91 /min [facility] blood pressure, diastolic 81 mm[Hg] Vi ctoria Tebid blood pressure, systolic 117 mm[Hg] Merritt cari Tebid pulse rate #2 75 [facility], koehler tolic, second observation 71 mm[Hg] [facility] blood [facility], syst olic, second observation 134 mm[Hg] [facility] oxygen saturation, oximetry 98 % [facility] pulse rate 75 /min [facility] blood [facility], diastolic 71 mm[Hg] Vi [facility] Tebid blood pressure, systolic 134 mm[Hg] Merritt cari Tebid pulse rate #2 63 [facility] blood pressure, koehler tolic, second observation 75 mm[Hg] [facility] blood pressure, syst olic, second observation 136 mm[Hg] [facility] oxygen saturation, oximetry 98 % [facility] pulse rate 63 /min [place] d blood pressure, diastolic 75 mm[Hg] Vi idoria Tebid blood pressure, systolic 136 mm[Hg] Merritt cari Tebid pulse rate #2 74 [place] Tebid blood pressure, koehler tolic, second observation 78 mm[Hg] [place] Tebid blood pressure, syst olic, second observation 126 mm[Hg] Rani Tebid oxygen saturation, oximetry 98 % [facility] 74 /min [place] Tebid blood pressure, diastolic 78 mm[Hg] Vi ctoria Tebid blood pressure, systolic 126 mm[Hg] Merritt andersonia Tebid pulse rate #2 71 [place] Tebid blood pressure, koehler tolic, second observation 77 mm[Hg] Rani Tebid blood pressure, syst olic, second observation 135 mm[Hg] Rani bid oxygen saturation, oximetry 98 % Rani bid pulse rate 71 /min [place] d blood pressure, diastolic 77 mm[Hg] Vi ctoria Tebid blood pressure, systolic 135 mm[Hg] Merritt cari Tebid pulse rate #2 69 [place] d blood pressure, koehler tolic, second observation 72 mm[Hg] [facility], syst olic, second observation 140 mm[Hg] Rani d oxygen saturation, oximetry 98 % Rani pulse rate 69 /min [place] d blood pressure, diastolic 72 mm[Hg] Vi ctoria Tebid blood pressure, systolic 140 mm[Hg] Merritt cari Tebid pulse rate #2 68 [place] d blood pressure, koehler tolic, second observation 74 mm[Hg] Rani d blood pressure, syst olic, second observation 135 mm[Hg] Rani d oxygen saturation, oximetry 98 % Rani d pulse rate 68 /min [place] bid blood pressure, diastolic 74 mm[Hg] Vi ctoria Tebid blood pressure, systolic 135 mm[Hg] Merritt cari Tebid pulse rate #2 66 [facility], koehler tolic, second observation 79 mm[Hg] [facility], syst olic, second observation 127 mm[Hg] Rani Tebid oxygen saturation, oximetry 98 % Rani d pulse rate 66 /min [place] Tebid blood pressure, diastolic 79 mm[Hg] Vi ctoria Tebid blood pressure, systolic 127 mm[Hg] Merritt cari Tebid pulse rate #2 63 [facility] blood pressure, koehler tolic, second observation 84 mm[Hg] Rani d blood pressure, syst olic, second observation 133 mm[Hg] Rani d oxygen saturation, oximetry 98 % [place] pulse rate 63 /min [facility] blood pressure, diastolic 84 mm[Hg] Vi [facility] Ted blood pressure, systolic 133 mm[Hg] Merritt cari Ted pulse rate #2 62 [facility] blood pressure, koehler tolic, second observation 68 mm[Hg] [facility] blood pressure, syst olic, second observation 129 mm[Hg] [facility] oxygen saturation, oximetry 98 % [facility] pulse rate 62 /min [facility] blood pressure, diastolic 68 mm[Hg] Vi [facility] Ted blood pressure, systolic 129 mm[Hg] Merritt cari Ted pulse rate #2 65 [place] blood pressure, koehler tolic, second observation 81 mm[Hg] [facility] blood [facility], syst olic, second observation 131 mm[Hg] [facility] oxygen saturation, oximetry 98 % [facility] pulse rate 65 /min [facility] blood pressure, diastolic 81 mm[Hg] Maryanne [facility] Ted blood pressure, systolic 131 mm[Hg] Merritt cari Ted Body Mass Index (Ratio) 44.44 kg/m2 Antwan Valverde MD blood pressure, cuff size regular Alfonso Becerril blood pressure, diastolic 64 mm[Hg] Alfonso Becerril blood pressure, systolic 122 mm[Hg] Rachell Becerril oxygen saturation, oximetry 98 % Azra Becerril respiratory rate E&M 17 /min Azra Alvarez pulse rate 86 /min Azra Alvarez weight E&M 243 [lb_av] Azra blood pressure, resting No Bandarerica oleary height E&M 62 [in_i] Azra Alvarez Body Mass Index (Ratio) 45.35 kg/m2 Antwan Valverde MD blood pressure, diastolic 76 mm[Hg] Ki flor Dixon blood pressure, systolic 110 mm[Hg] Roque tyler Dixon oxygen saturation, oximetry 98 % Windham Dixon respiratory rate E&M 16 /min Delfino Dixon pulse rate 77 /min Delfino Dixon weight E&M 248 [lb_av] [place] Dixon height E&M 62 [in_i] Windham Dixon Body Mass Index (Ratio) 45.21 kg/m2 Antwan Valverde MD blood pressure, diastolic 72 mm[Hg] Ulisses Etienne blood pressure, systolic 141 mm[Hg] Carrie Etienne oxygen saturation, oximetry 92 % Brandan Etienne respiratory rate E&M 20 /min Ishan Etienne pulse rate 79 /min Brandan jc weight E&M 247.2 [lb_av] Brandan mccormick height E&M 62 [in_i] Brandan Syd hosea Body Mass Index (Ratio) 44.62 kg/m2 Arlene rodrigo Alonso weight E&M 244 [lb_av] Natalee Alonso blood pressure, diastolic 71 mm[Hg] Mn taiwo Alonso blood pressure, systolic 126 mm[Hg] Cece angelo Alonso pulse rate 74 /min Natalee Alonso oxygen saturation, oximetry 97 % Natalee Alonso respiratory rate E&M 15 /min Natalee Alonso blood pressure, diastolic 71 mm[Hg] Me maravilla Alonso blood pressure, systolic 117 mm[Hg] Cece angelo Alonso pulse rate 72 /min Natalee Alonso oxygen saturation, oximetry 97 % Natalee Alonso respiratory rate E&M 15 /min Natalee Alonso Body Mass Index (Ratio) 45.17 kg/m2 [facility] weight E&M 247 [lb_av] Natalee Alonso blood pressure, diastolic 72 mm[Hg] Mn taiwo Alonso blood pressure, systolic 142 mm[Hg] Cece angelo Alonso pulse rate 86 /min Natalee Alonso oxygen saturation, oximetry 97 % Natalee Alonso respiratory rate E&M 16 /min Natalee Alonso Body Mass Index (Ratio) 45.17 kg/m2 [facility] weight E&M 247 [lb_av] Natalee Alonso blood pressure, diastolic 77 mm[Hg] Me taiwo Patel blood pressure, systolic 164 mm[Hg] Cece Patel pulse rate 72 /min Natalee Patel oxygen saturation, oximetry 99 % Natalee Patel respiratory rate E&M 16 /min Natalee Patel Body Mass Index (Ratio) 45.50 kg/m2 [facility] rodrigo Patel weight E&M 248.8 [lb_av] Natalee Patel Body Mass Index (Ratio) 45.17 kg/m2 [facility] blood pressure, diastolic 65 mm[Hg] Mn taiwo Alonso blood pressure, systolic 133 mm[Hg] Cece angelo Alonso pulse rate 76 /min Natalee Alonso oxygen saturation, oximetry 98 % Natalee Alonso respiratory rate E&M 14 /min Natalee Alonso weight E&M 247 [lb_av] Natalee Alonso Body Mass Index (Ratio) 45.35 kg/m2 Fabian i BLue blood pressure, diastolic 80 mm[Hg] Ni reginai BLue blood pressure, systolic 100 mm[Hg] Gold skinner BLue pulse rate 66 /min Cathy BLue oxygen saturation, oximetry 98 % Cathy BLue respiratory rate E&M 16 /min Cathy B Lue weight E&M 248 [lb_av] Cathy BLue Body Mass Index (Ratio) 45.54 kg/m2 Lomas i Junior blood pressure, diastolic 80 mm[Hg] Ke rri Tuanuenejaylener blood pressure, systolic 120 mm[Hg] Los [place] pulse rate 77 /min Shanice Christian lder oxygen saturation, oximetry 98 % Shanice Pacheco respiratory rate E&M 16 /min Shanice live weight E&M 249 [lb_av] Shanice Christian lder blood pressure, diastolic 78 mm[Hg] Mn taiwo Alonso blood pressure, systolic 145 mm[Hg] Cece angelo Alonso Body Mass Index (Ratio) 46.09 kg/m2 Arlene wallace Alonso pulse rate 64 /min Natalee Alonso oxygen saturation, oximetry 98 % Natalee Alonso respiratory rate E&M 16 /min Natalee Alonso weight E&M 252 [lb_av] Natalee Alonso Body Mass Index (Ratio) 45.90 kg/m2 [place] i Junior blood pressure, diastolic 62 mm[Hg] Ke rri Tuanuenenfblancoer blood pressure, systolic 116 mm[Hg] Los ri Junior pulse rate 72 /min Shanice Kayceee lder oxygen saturation, oximetry 98 % Shanice Junior respiratory rate E&M 16 /min Shanice Bautista maria t weight E&M 251 [lb_av] Shanice Dickersonalie lder pulse rate #2 72 Rani Tebi blood pressure, koehler tolic, second observation 71 mm[Hg] Rani Tebid blood pressure, syst olic, second observation 128 mm[Hg] Rani Tebid oxygen saturation, oximetry 97 % [facility] 75 /min [facility], diastolic 78 mm[Hg] Vi [facility] Tebid blood pressure, systolic 139 mm[Hg] [facility] #2 [facility] [place] Tebi blood pressure, koehler tolic, second observation 65 mm[Hg] Rani Tebid blood pressure, syst olic, second observation 148 mm[Hg] Rani Tebid oxygen saturation, oximetry 97 % Rani Tebid pulse rate 71 /min Rani Tebid blood pressure, diastolic 60 mm[Hg] Vi [facility] Tebid blood pressure, systolic 151 mm[Hg] Merritt cari Tebid pulse rate #2 67 Rani Tebid blood pressure, koehler tolic, second observation 66 mm[Hg] Rani Tebid blood pressure, syst olic, second observation 138 mm[Hg] Rani Tebid oxygen saturation, oximetry 97 % Rani Tebid pulse rate 68 /min Rani Tebid blood pressure, diastolic 72 mm[Hg] Vi ctoria Tebid blood pressure, systolic 147 mm[Hg] Merritt cari Tebid pulse rate #2 81 Rani Tebid blood pressure, koehler tolic, second observation 78 mm[Hg] Rani Tebid blood pressure, syst olic, second observation 121 mm[Hg] [facility] oxygen saturation, oximetry 97 % [facility] pulse rate 76 /min [facility] blood pressure, diastolic 58 mm[Hg] [facility], systolic 121 mm[Hg] Merritt [facility] pulse rate #2 86 [facility] blood pressure, koehler tolic, second observation 61 mm[Hg] [facility] blood pressure, syst olic, second observation 132 mm[Hg] [facility] oxygen saturation, oximetry 97 % [facility] pulse rate 81 /min [facility] blood pressure, diastolic 66 mm[Hg] [facility], systolic 144 mm[Hg] Merritt [facility] pulse rate #2 69 [facility] blood pressure, koehler tolic, second observation 64 mm[Hg] [facility] blood pressure, syst olic, second observation 129 mm[Hg] [facility] oxygen saturation, oximetry 97 % [facility] pulse rate 71 /min [facility] blood pressure, diastolic 71 mm[Hg] Vi [facility] blood pressure, systolic 136 mm[Hg] Merritt cari [facility] blood pressure, diastolic 71 mm[Hg] An eatris Tramaine blood pressure, systolic 135 mm[Hg] Ane atris Tramaine pulse rate 88 /min Yarelisatrerica [facility] oxygen saturation, oximetry 97 % Yarelisatrerica Redd respiratory rate E&M 18 /min Angelai kee Redd weight E&M 250 [lb_av] Yarelisatris Tramaine pulse rate #2 77 [facility] blood pressure, koehler tolic, second observation 77 mm[Hg] [facility] blood pressure, syst olic, second observation 135 mm[Hg] Rani Tebid oxygen saturation, oximetry 98 % Rani Tebid pulse rate 73 /min Rani Tebid blood pressure, diastolic 68 mm[Hg] Vi ctoria Tebid blood pressure, systolic 148 mm[Hg] Merritt cari Tebid pulse rate #2 82 [place] Tebid blood pressure, koehler tolic, second observation 74 mm[Hg] Rani Tebid blood pressure, syst olic, second observation 126 mm[Hg] Rani Tebid oxygen saturation, oximetry 98 % Rani bid pulse rate 85 /min Rani bid blood pressure, diastolic 86 mm[Hg] Vi ctoria Tebid blood pressure, systolic 146 mm[Hg] Merritt cari Tebid pulse rate #2 76 [place] Tebid blood pressure, koehler tolic, second observation 80 mm[Hg] Rani bid blood pressure, syst olic, second observation 134 mm[Hg] Rani Tebid oxygen saturation, oximetry 98 % Rani bid pulse rate 82 /min Rani Tebid blood pressure, diastolic 88 mm[Hg] Vi ctoria Tebid blood pressure, systolic 145 mm[Hg] Merritt cari Tebid pulse rate #2 77 [place] Tebid blood pressure, koehler tolic, second observation 72 mm[Hg] Rani Tebid blood pressure, syst olic, second observation 145 mm[Hg] Rani Tebid oxygen saturation, oximetry 98 % Rani bid pulse rate 71 /min Rani Tebid blood pressure, diastolic 69 mm[Hg] Vi ctoria Tebid blood pressure, systolic 148 mm[Hg] Merritt cari Tebid pulse rate #2 66 [place] Tebid blood pressure, koehler tolic, second observation 64 mm[Hg] Rani bid blood pressure, syst olic, second observation 141 mm[Hg] Rani bid oxygen saturation, oximetry 98 % Rani d pulse rate 69 /min blood pressure, diastolic 64 mm[Hg] Vi ctoria Tebid blood pressure, systolic 143 mm[Hg] Merritt cari Tebid pulse rate #2 78 Rani d blood pressure, koehler tolic, second observation 70 mm[Hg] Rani d blood pressure, syst olic, second observation 131 mm[Hg] d oxygen saturation, oximetry 98 % pulse rate 76 /min Rani blood pressure, diastolic 76 mm[Hg] Vi ctoria Tebid blood pressure, systolic 137 mm[Hg] Merritt cari Tebid pulse rate #2 74 Rani d blood pressure, koehler tolic, second observation 84 mm[Hg] Rani d blood pressure, syst olic, second observation 122 mm[Hg] Rani d oxygen saturation, oximetry 98 % Rani pulse rate 71 /min Rani d blood pressure, diastolic 80 mm[Hg] Vi ctoria Tebid blood pressure, systolic 132 mm[Hg] Merritt cari Tebid pulse rate #2 86 Rani d blood pressure, koehler tolic, second observation 92 mm[Hg] Rani d blood pressure, syst olic, second observation 132 mm[Hg] Rani d oxygen saturation, oximetry 98 % Rani pulse rate 77 /min Rani d blood pressure, diastolic 84 mm[Hg] Vi ctoria Tebid blood pressure, systolic 138 mm[Hg] Merritt cari Tebid pulse rate #2 75 [place] Tebid blood pressure, koehler tolic, second observation 65 mm[Hg] Rani Tebid blood pressure, syst olic, second observation 129 mm[Hg] Rani Tebid oxygen saturation, oximetry 98 % Rani bid pulse rate 75 /min [place] Tebid blood pressure, diastolic 82 mm[Hg] Vi ctoria Tebid blood pressure, systolic 145 mm[Hg] Merritt cari Tebid pulse rate #2 73 [place] Tebid blood pressure, koehler tolic, second observation 71 mm[Hg] Rani Tebid blood pressure, syst olic, second observation 134 mm[Hg] Rani Tebid oxygen saturation, oximetry 98 % [facility], diastolic 93 mm[Hg] Vi ctoria Tebid blood pressure, systolic 151 mm[Hg] Merritt cari Tebid pulse rate #2 72 [place] Tebid blood pressure, koehler tolic, second observation 77 mm[Hg] [place] Tebid blood pressure, syst olic, second observation 119 mm[Hg] [place] Tebid oxygen saturation, oximetry 98 % [place] Tebid pulse rate 74 /min [place] Tebid blood pressure, diastolic 87 mm[Hg] Vi ctoria Tebid blood pressure, systolic 121 mm[Hg] Merritt cari Tebid pulse rate #2 72 [place] Tebid blood pressure, koehler tolic, second observation 81 mm[Hg] Rani Tebid blood pressure, syst olic, second observation 125 mm[Hg] [place] Tebid oxygen saturation, oximetry 98 % [facility] 74 /min [place] Tebid blood pressure, diastolic 70 mm[Hg] Vi ctoria Tebid blood pressure, systolic 130 mm[Hg] Merritt cari Tebid pulse rate #2 82 Rani Tebid blood pressure, koehler tolic, second observation 75 mm[Hg] Rani bid blood pressure, syst olic, second observation 125 mm[Hg] [facility], oximetry 98 % Rani bid pulse rate 83 /min [place] bid blood pressure, diastolic 71 mm[Hg] Vi ctoria Tebid blood pressure, systolic 135 mm[Hg] Merritt cari Tebid pulse rate #2 77 [place] Tebid blood pressure, koehler tolic, second observation 88 mm[Hg] [facility], syst olic, second observation 132 mm[Hg] [facility] oxygen saturation, oximetry 98 % [facility] pulse [facility] 73 /min [facility] blood [facility], diastolic 76 mm[Hg] Vi ctoria Tebid blood pressure, systolic 138 mm[Hg] Merritt cari Tebid pulse rate #2 76 [place] d blood pressure, koehler tolic, second observation 79 mm[Hg] [facility] blood [facility], syst olic, second observation 126 mm[Hg] [facility] oxygen saturation, oximetry 98 % [facility] pulse rate 71 /min [place] Tebid blood pressure, diastolic 84 mm[Hg] Vi ctoria Tebid blood pressure, systolic 146 mm[Hg] Merritt andersonia Tebid pulse rate #2 68 [facility] blood [facility], koehler tolic, second observation 80 mm[Hg] [facility] blood pressure, syst olic, second observation 136 mm[Hg] [facility] oxygen saturation, oximetry 98 % [facility] pulse [facility] 74 /min [facility], [facility] 83 mm[Hg] Vi ctoria Tebid blood pressure, systolic 140 mm[Hg] Merritt cari Tebid pulse rate #2 79 [place] Tebid blood pressure, koehler tolic, second observation 59 mm[Hg] Rani Tebid blood pressure, syst olic, second observation 124 mm[Hg] Rani Tebid oxygen saturation, oximetry 98 % Rani Tebid pulse rate 83 /min [place] Tebid blood pressure, diastolic 65 mm[Hg] Vi ctoria Tebid blood pressure, systolic 133 mm[Hg] Merritt cari Tebid pulse rate #2 80 [place] Tebid blood pressure, koehler tolic, second observation 78 mm[Hg] [facility], syst olic, second observation 127 mm[Hg] [place] Tebid oxygen saturation, oximetry 98 % [place] Tebid pulse rate 76 /min [place] Tebid blood pressure, diastolic 81 mm[Hg] Vi ctoria Tebid blood pressure, systolic 140 mm[Hg] Merritt cari Tebid pulse rate #2 78 [place] Tebid blood pressure, koehler tolic, second observation 83 mm[Hg] Rani Tebid blood pressure, syst olic, second observation 137 mm[Hg] Rani Tebid oxygen saturation, oximetry 98 % [place] Tebid pulse rate 75 /min [place] Tebid blood pressure, diastolic 82 mm[Hg] Vi ctoria Tebid blood pressure, systolic 135 mm[Hg] Merritt cari Tebid pulse rate #2 76 [facility], koehler tolic, second observation 81 mm[Hg] [facility] blood [facility], syst olic, second observation 145 mm[Hg] [place] Tebid oxygen saturation, oximetry 98 % Rani Tebid pulse rate 74 /min Rani Tebid blood pressure, diastolic 89 mm[Hg] Vi ctoria Tebid blood pressure, systolic 145 mm[Hg] Merritt cari Tebid pulse rate #2 77 Rani Tebid blood pressure, koehler tolic, second observation 82 mm[Hg] Rani Tebid blood pressure, syst olic, second observation 139 mm[Hg] Rani Tebid oxygen saturation, oximetry 98 % Rani Tebid pulse rate 68 /min [place] Tebid blood pressure, diastolic 91 mm[Hg] Vi ctoria Tebid blood pressure, systolic 134 mm[Hg] Merritt cari Tebid pulse rate #2 82 [place] Tebid blood pressure, koehler tolic, second observation 86 mm[Hg] Rani Tebid blood pressure, syst olic, second observation 140 mm[Hg] Rani Tebid oxygen saturation, oximetry 98 % [place] [facility] pulse rate 73 /min [place] [facility] blood pressure, diastolic 89 mm[Hg] Vi ctoria Tebid blood pressure, systolic 143 mm[Hg] Merritt cari Tebid pulse rate #2 82 [place] [facility] blood pressure, koehler tolic, second observation 77 mm[Hg] Rani Tebid blood pressure, syst olic, second observation 135 mm[Hg] Rani Tebid oxygen saturation, oximetry 98 % [place] [facility] pulse rate 73 /min [place] [facility] blood pressure, diastolic 89 mm[Hg] Vi ctoria Tebid blood pressure, systolic 148 mm[Hg] Merritt cari Tebid pulse rate #2 77 [place] [facility] blood pressure, koehler tolic, second observation 83 mm[Hg] Rani Tebid blood pressure, syst olic, second observation 146 mm[Hg] [facility], [facility] % Rani bid pulse rate 83 /min [place] bid blood pressure, diastolic 90 mm[Hg] Vi ctoria Tebid blood pressure, systolic 148 mm[Hg] Merritt cari Tebid pulse rate #2 73 [place] bid blood pressure, koehler tolic, second observation 61 mm[Hg] Rani d blood pressure, syst olic, second observation 130 mm[Hg] [facility], oxim[facility] 98 % Rani d pulse rate 76 /min [place] d blood pressure, diastolic 65 mm[Hg] Vi ctoria Tebid blood pressure, systolic 139 mm[Hg] Merritt cari Tebid pulse rate #2 74 [place] d blood pressure, koehler tolic, second observation 89 mm[Hg] [facility], syst [facility]lic, second observation 132 mm[Hg] Rani bid oxygen saturation, oximetry 98 % Rani d pulse rate 75 /min [place] bid blood pressure, diastolic 91 mm[Hg] Vi ctoria Tebid blood pressure, systolic 158 mm[Hg] Merritt cari Tebid pulse rate #2 73 Rani Tebid blood pressure, koehler tolic, second observation 82 mm[Hg] Rani bid blood pressure, syst olic, second observation 125 mm[Hg] Rani Tebid oxygen saturation, oximetry 98 % Rani d pulse rate 74 /min [place] bid blood pressure, diastolic 93 mm[Hg] Vi ctoria Tebid blood pressure, systolic 152 mm[Hg] Merritt cari Tebid pulse rate #2 81 [place] [facility] blood pressure, koehler tolic, second observation 85 mm[Hg] [facility], syst [facility], second observation 142 mm[Hg] [facility], oximetry 98 % [facility] pulse rate 82 /min [facility] blood pressure, diastolic 68 mm[Hg] Vi ctoria Tebid blood pressure, systolic 142 mm[Hg] Merritt cari Tebid pulse rate #2 78 [place] [facility] blood pressure, koehler tolic, second observation 73 mm[Hg] [facility] blood pressure, syst olic, second observation 122 mm[Hg] [place] T[facility]id oxygen saturation, oximetry 98 % [facility] pulse rate 75 /min [facility] blood pressure, diastolic 81 mm[Hg] [facility] Tebid blood pressure, systolic 138 mm[Hg] Merritt alcala Tebid Body Mass Index (Ratio) 46.63 kg/m2 Arlene wallace Alonso blood pressure, diastolic 65 mm[Hg] Mn taiwo Alonso blood pressure, systolic 121 mm[Hg] Cece angelo Alonso pulse rate 80 /min Natalee Alonso oxygen saturation, oximetry 98 % Natalee Alonso respiratory rate E&M 14 /min Natalee Alonso weight E&M 254 [lb_av] Natalee Alonso blood pressure, diastolic 70 mm[Hg] Son Mann RN blood pressure, systolic 123 mm[Hg] Toño Mann RN pulse rate 72 /min Toño Mann RN oxygen saturation, oximetry 98 % Toño Mann RN respiratory rate E&M 18 /min Toño renee RN Body Mass Index (Ratio) 48.46 kg/m2 Toño Mann RN weight E&M 264 [lb_av] Toño Mann RN height E&M 62 [in_i] Toño Mann RN blood pressure, diastolic 74 mm[Hg] Bessy smith [place] blood pressure, systolic 139 mm[Hg] Huey nanci [place] pulse rate 81 /min [facility] [place] oxygen saturation, oximetry 96 % [facility] [place] respiratory rate E&M 20 /min [facility] [place] weight E&M 278 [lb_av] [facility] blood pressure, diastolic 57 mm[Hg] Son Mann RN blood pressure, systolic 118 mm[Hg] Toño Mann RN pulse rate 78 /min Toño Mann RN oxygen saturation, oximetry 97 % Toño Mann RN respiratory rate E&M 18 /min oTño renee RN weight E&M 269 [lb_av] Toño Mann RN blood pressure, diastolic 84 mm[Hg] Son Mann RN blood pressure, systolic 122 mm[Hg] Toño Mann RN pulse rate 79 /min Toño Mann RN oxygen saturation, oximetry 97 % Toño Mann RN respiratory rate E&M 18 /min Toño renee RN weight E&M 286 [lb_av] Toño Mann RN blood pressure, diastolic 78 mm[Hg] Son Mann RN blood pressure, systolic 127 mm[Hg] Toño Mann RN pulse rate 83 /min Toño Mann RN oxygen saturation, oximetry 96 % Toño Mann RN respiratory rate E&M 16 /min Toño renee RN weight E&M 283 [lb_av] Toño Mann RN ALLERGIES Allergy Name Onset Date Reaction Criticality Status LEVAQUIN Low Criticality active RESULTS Date Observation Value Provider Reference Range Interpretation Location c-reactive protein, quantitative, serum 3.22 mg/L [facility] 0.00-3.00 High alanine aminotransferase (SGPT), serum 10 1/L [facility] 0-32 aspartate aminotransferase (SGOT), serum 13 1/L [facility] 0-40 alkaline phosphatase, serum 74 1/L [facility] 48-121 bilirubin, serum, total 0.2 mg/dL [facility] 0.0-1.2 albumin/globulin ratio, serum 1.5 [facility] 1.2-2.2 globulin, serum 2.9 [facility] 1.5-4.5 albumin, serum 4.3 g/dL [facility] 3.8-4.8 protein, total, serum 7.2 g/dL [facility] 6.0-8.5 calcium, serum 9.9 mg/dL [facility] 8.7-10.3 carbon dioxide, venous blood 23 mmol/L [facility] 20-29 chloride, serum 106 mmol/L [facility] 96-106 potassium, serum 3.9 mmol/L [facility] 3.5-5.2 sodium, serum 142 mmol/L [facility] [phone]/08/ 19 urea nitrogen/creatinine ratio, serum 16 [facility] 12-28 eGFR if 82 mL/min/{1. 73_m2} [facility] >59 eGFR if not 71 mL/min/{1. 73_m2} [facility] >59 creatinine, serum 0.87 mg/dL [facility] 0.57-1.00 urea nitrogen, blood 14 mg/dL [facility] 8-27 blood glucose, random 103 mg/dL [facility] 65-99 High lipoprotein, beta, serum, point, quantitative, calculated 83 mg/dL [facility] 0-99 HDL cholesterol, serum 54 mg/dL [facility] >39 triglyceride, serum, random 184 mg/dL [facility] 0-149 High cholesterol, serum 168 mg/dL [facility] [phone]/09/ 07 hemoglobin A1C, blood, as % of total hemoglobin 6.6 % [facility] 4.8-5.6 High basophil count, absolute 0.0 x10E3/uL [facility] 0.0-0.2 Eosinophil Absolute Count 0.3 X10E3/UL [facility] 0.0-0.4 monocyte count, blood, automated 0.6 X10E3/UL [facility] 0.1-0.9 lymphocyte count, blood, automated 2.3 X10E3/UL [facility] 0.7-3.1 Absolute Neutrophils 5.6 X10E3/UL [facility] 1.4-7.0 basophils as percent of blood leukocytes 0 % [facility] Not Estab. eosinophils as percent of blood leukocytes 3 % [facility] Not Estab. monocytes as percent of blood leukocytes 7 % [facility] Not Estab. lymphocytes as percent of blood leukocytes 26 % [facility] Not Estab. neutrophils as percent of blood leukocytes 64 % [facility] Not Estab. platelet count 206 X10E3/UL [facility] [phone]/09/ 07 red blood cell distribution width 15.1 % [facility] 12.3-15.4 mean corpuscular hemoglobin concentration, RBC 32.3 G/DL [facility] 31.5-35.7 mean corpuscular hemoglobin, RBC 23.1 pg [facility] 26.6-33.0 Low mean corpuscular volume, RBC 72 fL [facility] 79-97 Low hematocrit, blood 34.1 % [facility] 34.0-46.6 hemoglobin, blood 11.0 g/dL [facility] 11.1-15.9 Low erythrocyte (RBC) count 4.76 X10E6/UL [facility] 3.77-5.28 leukocyte count, blood 8.9 X10E3/UL [facility] 3.4-10.8 alanine aminotransferase (SGPT), serum 19 1/L [facility] 0-32 aspartate aminotransferase (SGOT), serum 19 1/L [facility] 0-40 alkaline phosphatase, serum 89 1/L [facility] 39-117 bilirubin, serum, total 0.2 mg/dL [facility] 0.0-1.2 albumin/globulin ratio, serum 1.4 [facility] 1.2-2.2 globulin, serum 2.7 [facility] 1.5-4.5 albumin, serum 3.9 g/dL [facility] 3.6-4.8 protein, total, serum 6.6 g/dL [facility] 6.0-8.5 calcium, serum 9.6 mg/dL [facility] 8.7-10.3 carbon dioxide, venous blood 19 mmol/L [facility] 20-29 Low chloride, serum 107 mmol/L [facility] 96-106 High potassium, serum 4.3 mmol/L [facility] 3.5-5.2 sodium, serum 141 mmol/L [facility] [phone]/09/ 07 urea nitrogen/creatinine ratio, serum 20 [facility] 12-28 eGFR if 65 mL/min/{1. 73_m2} [facility] >59 eGFR if not 57 mL/min/{1. 73_m2} [facility] >59 Low creatinine, serum 1.06 mg/dL [facility] 0.57-1.00 High urea nitrogen, blood 21 mg/dL [facility] 8-27 blood glucose, random 113 mg/dL [facility] 65-99 High ferritin, serum 112 ng/mL [facility] 15-150 iron saturation percent, serum 19 % [facility] 15-55 iron, serum 54 ug/dL [facility] 27-159 iron binding capacity, unsaturated 227 ug/dL [facility] [phone]/02/ 06 iron binding capacity, total 281 ug/dL [facility] [phone]/02/ 06 basophil count, absolute 0.0 x10E3/uL [facility] 0.0-0.2 Eosinophil Absolute Count 0.3 X10E3/UL [facility] 0.0-0.4 monocyte count, blood, automated 0.7 X10E3/UL [facility] 0.1-0.9 lymphocyte count, blood, automated 2.9 X10E3/UL [facility] 0.7-3.1 Absolute Neutrophils 7.1 X10E3/UL [facility] 1.4-7.0 High basophils as percent of blood leukocytes 0 % [facility] Not Estab. eosinophils as percent of blood leukocytes 3 % [facility] Not Estab. monocytes as percent of blood leukocytes 7 % [facility] Not Estab. lymphocytes as percent of blood leukocytes 26 % [facility] Not Estab. neutrophils as percent of blood leukocytes 64 % [facility] Not Estab. platelet count 277 X10E3/UL [facility] [phone]/02/ 06 red blood cell distribution width 15.7 % [facility] 12.3-15.4 High mean corpuscular hemoglobin concentration, RBC 32.1 G/DL [facility] 31.5-35.7 mean corpuscular hemoglobin, RBC 22.8 pg [facility] 26.6-33.0 Low mean corpuscular volume, RBC 71 fL [facility] 79-97 Low hematocrit, blood 36.4 % [facility] 34.0-46.6 hemoglobin, blood 11.7 g/dL [facility] 11.1-15.9 erythrocyte (RBC) count 5.13 X10E6/UL [facility] 3.77-5.28 leukocyte count, blood 11.2 X10E3/UL [facility] 3.4-10.8 High LDL cholesterol, serum 84 mg/dL Kvng Valverde MD international normalized ratio (INR) 0.9 [facility] 0.9-1.1 prothrombin time (patient) 9.5 Seconds [facility] 9.0-11.5 platelet count 245 THOUSAND/U L [facility] [phone]/10/ 02 Absolute Basophils 0.0 CELLS/UL [facility] 0.0-0.2 Absolute Monocytes 0.6 CELLS/UL [facility] 0.2-1.0 Absolute Lymphocytes 2.83 CELLS/UL [facility] 0.85-3.90 Absolute Neutrophils 5.4 CELLS/UL [facility] 1.5-7.8 mean corpuscular volume, RBC 75 fL [facility] 75-100 mean corpuscular hemoglobin concentration, RBC 30 G/DL [facility] 31-38 Low mean corpuscular hemoglobin, RBC 22 pg [facility] 25-35 Low hematocrit, blood 38 % [facility] 35-55 hemoglobin, blood 11.2 g/dL [facility] 11.5-16.5 Low erythrocyte count, whole blood 5.0 MILLION/UL [facility] 3.5-5.5 very low density lipoproteins 35.0 mg/dL [facility] 5.0-40.0 LDL/HDL (low-density lipoprotein/high-de nsity lipoprotein) ratio 2 mg/dL [facility] 0-5 lipoprotein, beta, serum, point, quantitative, calculated 84 mg/dL [facility] 0-100 HDL cholesterol, serum 41 mg/dL [facility] 45-65 Low cholesterol, serum 160 mg/dL [facility] 0-200 triglyceride, serum, fasting 175 mg/dL [facility] 0-150 High Estimated Glomerular Filtration Rate (calc) 80 (?) [facility] >59 chloride, serum 102 mmol/L [facility] 98-107 potassium, serum 4.5 mmol/L [facility] 3.5-5.1 sodium, serum 140 mmol/L [facility] [phone]/10/ 02 creatinine, serum 0.8 mg/dL [facility] 0.5-0.9 carbon dioxide, venous blood 23 mmol/L [facility] 23-31 calcium, serum 9.9 mg/dL [facility] 8.6-10.2 urea nitrogen, blood 14 mg/dL [facility] 6-20 blood glucose, random 160 mg/dL [facility] 74-99 High amylase, serum 43.0 1/L [facility] 28.0 - 100.0 hemoglobin A1C, blood, as % of total hemoglobin 7.3 % [facility] 4.0 - 6.0 High lipase, serum 28.0 U/L [facility] 13.0 - 60.0 thyroid stimulating hormone, serum 1.360 ?IU/ML [facility] 0.270 - 4.200 very low density lipoproteins 47.0 mg/dL [facility] 5.0 - 40.0 High LDL/HDL (low-density lipoprotein/high-de nsity lipoprotein) ratio 2.1 RATIO [facility] - lipoprotein, beta, serum, point, quantitative, calculated 116.0 (?) [facility] 0.0 - 100.0 High HDL cholesterol, serum 56.0 mg/dL [facility] 45.0 - 65.0 cholesterol, serum 219.0 mg/dL [facility] 0.0 - 200.0 High triglyceride, serum, fasting 235.0 mg/dL [facility] 0.0 - 150.0 High anion gap, serum 14.9 [facility] - albumin/globulin ratio, serum 2.7 g/dL [facility] 1.1 - 2.5 High globulin, serum 3.1 [facility] 2.3 - 3.8 urea nitrogen/creatinine ratio, serum 21.4 [facility] - Estimated Glomerular Filtration Rate (calc) 91.7 (?) [facility] 59.0 - chloride, serum 103.1 mmol/L [facility] 98.0 - 107.0 potassium, serum 4.5 mmol/L [facility] 3.5 - 5.1 sodium, serum [facility].0 [facility] creatinine, serum 0.7 mg/dL [facility] 0.5 - 0.9 carbon dioxide, venous blood 27.0 mmol/L [facility] 22.0 - 29.0 albumin, serum 4.5 g/dL [facility] 3.5 - 5.2 calcium, serum 9.7 mg/dL [facility] 8.6 - 10.2 aspartate aminotransferase (SGOT), serum 21.0 1/L [facility] 0.0 - 32.0 alkaline phosphatase, serum 87.0 1/L [facility] 40.0 - 130.0 alanine aminotransferase (SGPT), serum 20.0 1/L [facility] 0.0 - 33.0 protein, total, serum 7.6 g/dL [facility] 6.6 - 8.7 bilirubin, serum, total 0.3 mg/dL [facility] 0.0 - 1.2 urea nitrogen, blood 15.0 mg/[facility] - 20.0 blood glucose, random 136.0 mg/dL [facility] 74.0 - 99.0 High nitrate usage None Rani Tebid hemoglobin A1C, blood, as % of total hemoglobin 10.9 % [facility] thyroid stimulating hormone, serum 1.120 u[IU]/mL [facility] very low density lipoproteins 52 mg/dL [facility] triglyceride, serum, fasting 260 mg/dL [facility] HDL cholesterol, serum 48 mg/dL [facility] LDL cholesterol, serum 118 mg/dL [facility] cholesterol, serum 218 mg/dL [facility] albumin/globulin ratio, serum 1.3 [facility] protein, total, serum 7.2 g/dL [facility] albumin, serum 4.1 g/dL [facility] bilirubin, serum, total 0.4 mg/dL [facility] alkaline phosphatase, serum 72 1/L [facility] alanine aminotransferase (SGPT), serum 15 1/L [facility] aspartate aminotransferase (SGOT), serum 15 1/L [facility] calcium, serum 9.5 mg/dL [facility] blood glucose, fasting 170 mg/dL [facility] creatinine, serum 0.70 mg/dL [facility] urea nitrogen, blood 8 mg/dL [facility] carbon dioxide, serum, total 17 mmol/L [facility] chloride, serum 99 mmol/L [facility] potassium, serum 4.0 mmol/L [facility] sodium, serum 135 mmol/L [facility] thyroid stimulating hormone, serum 0.94 u[IU]/mL [facility] thyroxine, serum, total 8.1 ug/dL [facility] triglyceride, serum, fasting 182 mg/dL [facility] HDL cholesterol, serum 54 mg/dL [facility] LDL cholesterol, serum 102 mg/dL [facility] cholesterol, serum 192 mg/dL [facility] blood glucose, fasting 113 mg/dL [facility] creatinine, serum 0.9 mg/dL [facility] urea nitrogen, blood 11 mg/dL [facility] carbon dioxide, serum, total 29 mmol/L [facility] chloride, serum 104 mmol/L [facility] potassium, serum 3.8 mmol/L [facility] sodium, serum 140 mmol/L David Isabella platelet count 277 10*3/uL David Isabella hematocrit, blood 36.5 % David Isabella hemoglobin, blood 11.5 g/dL David Mathewsmatthew leukocyte count, blood 11.5 10*3/mm3 David Mathewsmatthew HISTORY OF MEDICATION USE Medication Status Instructions Dates Provider Indications Com ments ondansetron 4 mg tablet,disintegr ating active Silverio Tusharbernadinezai propranolol 20 mg tablet active Take 1 tablet by mouth once a day as needed for rapid heart rate and palpitations Silverio Ahmedzai losartan 50 mg tablet active TAKE 1 TABLET BY MOUTH TWICE A DAY Silverio Ahmedzai losartan 50 mg tablet completed - Silverio Ahmedzai atorvastatin 80 mg tablet active Take 1 tablet by mouth every evening Silverio Ahbernadinezai clopidogrel 75 mg tablet completed TAKE 1 TABLET BY MOUTH EVERY DAY - Silverio Ahmedzai clopidogrel 75 mg tablet completed TAKE 1 TABLET BY MOUTH EVERY DAY - April Lane ND Specialist clopidogrel 75 mg tablet completed Take 1 tablet by mouth once a day - Parris Valdes albuterol sulfate 2.5 mg/3 mL (0.083 %) solution for nebulization completed INHALE THE CONTENTS OF 1 VIAL VIA NEBULIZER EVERY 4-6 HRS NEEDED FOR SHORTNESS OF BREATH/WHEEZIN G - Silverio Horvathzai Symbicort 160-4.5 mcg/actuation HFA aerosol inhaler active Silverio Obando ezetimibe 10 mg tablet active TAKE 1 TABLET BY MOUTH EVERY DAY Kvng Valverde MD Zetia 10 mg tablet completed Take 1 tablet by mouth once a day - Keli Tyler Medrol (Ismael) 4 mg tablets,dose pack completed Take by mouth as directed following package instructions - Silverio Obando azithromycin 250 mg tablet completed Take 1 tablet by mouth once a day One tablet a day x 5 days - Silverio Obando furosemide 20 mg tablet active TAKE 1 TABLET BY MOUTH EVERY DAY Emma Laws RN Zetia 10 mg tablet completed Take 1 tablet by mouth once a day - Silverio Obando lamotrigine 100 mg tablet active Keli Tyler ALPHA-LIPOIC ACID 300 MG ORAL TABLET completed one tab once daily - Shanice Pacheco Fatigue--ech o ef nl, 05/2024 zolpidem 10 mg tablet active as needed Camilla Chand Fatigue--ech o ef nl, 05/2024 #45, 30 days supply, Prescribed by VINCE GALLAGHER, Filled 10/18/2018 ergocalciferol (vitamin D2) 1,250 mcg (50,000 unit) capsule active Take 1 capsule by mouth once a week Naomistity Jagruti #12, 84 days supply, Prescribed by JUVENCIO CRAWFORD, Filled 01/16/2020 Trulicity 0.75 mg/0.5 mL pen injector active Inject 1 once a week Adánity Jagruti #2, 28 days supply, Prescribed by JUVENCIO CRAWFORD, Filled 09/08/2020 metformin (Fortamet) 1,000 mg tablet extended release 24hr completed Take 1 tablet twice a day - Silverio Obando VITAMIN E 180 MG ORAL CAPSULE completed Take 1 capsule once a day - Silverio Obando VITAMIN D (CHOLECALCIFEROL ) 25 MCG (1000 UT) ORAL TABLET completed take 1 tab daily - Shanice Pacheco DICYCLOMINE HCL 10 MG ORAL CAPSULE completed one tab three times daily - David Larson Lipitor 80 mg tablet completed 1 tablet once a day - Silverio Obando #90, 90 days supply, Prescribed by MAURICE DANIELS, Filled 12/03/2018 FOLIC ACID 1 MG ORAL TABLET completed TAKE 1 TABLET BY MOUTH EVERY DAY - Camilla Gonzalezue #30, 30 days supply, Prescribed by JESSICA GRAHAM, Filled 02/08/2019 topiramate 25 mg tablet completed TAKE 1 TABLET BY MOUTH EACH MORNING AND 2 TABLETS BY MOUTH EACH NIGHT - Silverio Horvathzai #90, 30 days supply, Prescribed by VINCE GALLAGHER, Filled 02/21/2019 RANEXA 500 MG ORAL TABLET EXTENDED RELEASE 12 HOUR completed twice a day, given samples - Shanice Pacheco LOSARTAN POTASSIUM 50 MG ORAL TABLET completed one tab ONCE daily - Kvng Valverde MD furosemide 20 mg tablet completed Take 1 tablet by mouth once a day - Gus James U-300 Insulin 300 unit/mL (1.5 mL) insulin pen completed Inject 36 unit once a day - Silverio Obando aspirin 81 mg tablet,delayed release (DR/EC) active 1 tablet by mouth once a day Jeanine Shaw VIIBRYD 20 MG ORAL TABLET completed once daily X 7 days then 40mg once daily - Amarilis Gotti AZITHROMYCIN PACKET completed take as directed - Natalee Alonso FLONASE ALLERGY RELIEF SUSPENSION completed 1 spray bid - Shanice Pacheco ATORVASTATIN CALCIUM 10 MG ORAL TABLET completed ONE TAB ONCE DAILY - Delfino Dixon FENOFIBRATE 160 MG ORAL TABLET completed ONCE DAILY - Kvng Valverde MD AUGMENTIN 875-125 MG ORAL TABLET completed twice daily x 7 days . - Natalee Alonso IBUPROFEN 800 MG ORAL TABLET completed po tid - Natalee Alonso BELVIQ 10 MG ORAL TABLET completed 1 tablet twice daily - Kvng Valverde MD FENOFIBRATE 160 MG ORAL TABLET completed once daily - Kvng Valverde MD GABAPENTIN 300 MG ORAL CAPSULE completed ONE CAP three times daily - Carie Steinberg KLOR-CON 10 TABLET EXTENDED RELEASE completed once daily - Mook Green MD LIPITOR 10 MG ORAL TABLET completed once daily - Kvng Valverde MD HUMALOG 100 UNIT/ML SUBCUTANEOUS SOLUTION completed 6 units twice daily - Delfino Dixon LANTUS SOLOSTAR SOLUTION PEN-INJECTOR completed as directed - Jeanine Shaw LASIX 20 MG ORAL TABLET completed one a day - Kvng Valverde MD LISINOPRIL 2.5 MG ORAL TABLET completed ONE TAB. DAILY - Shanice Pacheco VITAMIN D TABLET completed 1 tablet by mouth once per week - Toño Mann RN SYMLYN 120 UNITS completed 3 times daily - Natalee Alonso PEPCID 20 MG ORAL TABLET completed 1 tablet by mouth daily - Toño Mann RN CYMBALTA 30 MG ORAL CAPSULE DELAYED RELEASE PARTICLES completed 1 capsule by mouth daily - Cathy Wu alprazolam 0.5 mg tablet completed 1 tablet three times a day as needed - Silverio Obando AMBIEN 5 MG ORAL TABLET completed 1 tab - Shanice Pacheco AMARYL 2 MG ORAL TABLET completed 1 1/2 tab daily - Hill Armenta ZITHROMAX PACKET completed use for 5 days as directed - Toño Mann RN KLOR-CON 10 10 MEQ ORAL TABLET EXTENDED RELEASE completed 1 tablet by mouth daily - Toño Mann RN PRISTIQ [id number] completed daily - Toño Mann RN ZETIA 10 MG ORAL TABLET completed 1 tablet by mouth daily - Natalee Alonso CRESTOR 20 MG ORAL TABLET completed ONE TAB. DAILY - Natalee Alonso ACTOS TABLET completed daily - Hill Armenta Lamictal 100 mg tablet completed 1 tablet once a day - Silverio Alexandrutluio ASPIRIN 81 MG ORAL TABLET completed ONE TAB. DAILY - Natalee Alonso BUSPIRONE HCL 30 MG ORAL TABLET completed 2 tablets by mouth daily - Toño Mann RN SPIRIVA HANDIHALER CAPSULE completed 1 puff daily - Toño Mann RN ASMANEX completed 220 mcg daily - Hill Armenta ZETIA 10 MG ORAL TABLET completed daily - Hill Armenta VERAMYST 27.5 MCG/SPRAY NASAL SUSPENSION completed daily - Natalee Alonso SINGULAIR 10 MG ORAL TABLET completed daily - Toño Mann RN PROVENTIL HFA AEROSOL SOLUTION completed - Hill Armenta Protonix 20 mg tablet,delayed release (DR/EC) active Take 1 twice a day Shanice Pacheco LEXAPRO 20 MG ORAL TABLET completed ONE TAB ONCE DAILY - David Marsha METFORMIN HCL 500 MG ORAL TABLET completed take 1 tab twice daily - David Marsha ` GLIMEPIRIDE 4 MG ORAL TABLET completed TWO TAB ONCE DAILY - Delfino Dixon COREG 3.125 MG ORAL TABLET completed BID - Natalee Alonso BYETTA 10 MCG PEN 10 MCG/0.04ML SUBCUTANEOUS SOLUTION PEN-INJECTOR completed BID - Shanice Pacheco ABILIFY 5 MG ORAL TABLET completed daily - Hill Armenta ALPRAZOLAM TABLET completed 0.25 PRN - Toño Mann RN SOCIAL HISTORY Date Observation Value Provider drug use none Silverio Obando alcohol use no Silverio Obando passive cigarette sm jese exposure no Silverio Obando smoking status Never smoker Silverio Clarkamor drug use none Silverio Clarkamor alcohol use no Silverio Clarkamor passive cigarette sm jese exposure no Silverio Clarkamor smoking status Never smoker Silverio Clarkamor drug use none Silverio Clarkamor alcohol use no Silverio Clarkamor passive cigarette sm jese exposure no Silverio Clarkamor smoking status Never smoker Silverio Clarkamor drug use none Erwin David alcohol use no Erwin David passive cigarette sm jese exposure no [place] smoking status Never smoker [place] drug use none Silverio Horvathtulio alcohol use no Silverio Clarkamor passive cigarette sm jese exposure no Silverio Clarkamor smoking status Never smoker Silverio Clarkamor drug use none Silverio Clarkamor alcohol use no Silverio Clarkamor passive cigarette sm jese exposure no Silvreio Clarkamor smoking status Never smoker Silverio Horvathtulio drug use none Silverio Horvathtulio alcohol use no Silverio Clarkamor passive cigarette sm jese exposure no Silverio Clarkamor smoking status Never smoker Silverio Clarkamor social history E&M Marital Statu s: Single L [place] with family/friends E thnicity: Smoking History: P yasmin has never smoked. Silverio Obando smoking status Never smoker Lisa Reed social history reviewed E&M revi ewed - no changes required Silverio Obando social history reviewed E&M revi ewed - no changes required Silverio Obando smoking status Never smoker Raven rae [facility] social history reviewed E&M revi ewed - no changes required Raven Siddiqui [facility] physical exercise, frequency, days per week no Vagarret Zarate caffeine use, averag e drinks per day yes [facility] Z[facility] passive cigarette sm jese exposure no [facility] Zarate social history E&M Marital Statu s: Single L peewee with family/friends E thnicity: Smoking History: P yasmin has never smoked. Kvng Valverde MD social history reviewed E&M revi ewed - no changes required Kvng Valverde MD physical exercise, frequency, days per week no Dottie Yin caffeine use, averag e drinks per day yes Dottie Yin passive cigarette sm jese exposure no Dottie Yin smoking status Never smoker Dottie Yin social history E&M Marital Statu s: Single L peewee with family/friends E thnicity: Smoking History: P yasmin has never smoked. Silverio Obando smoking status Never smoker Lisa Reed social history reviewed E&M revi ewed - no changes required Silverio Obando social history E&M Marital Statu s: Single L peewee with family/friends E thnicity: Smoking History: P yasmin has never smoked. Silverio Obando physical exercise, frequency, days per week no Katerin Blake caffeine use, averag e drinks per day yes Katerin Blake passive cigarette sm jese exposure no Katerin Blake smoking status Never smoker Katerin campoverde social history reviewed E&M revi ewed - no changes required Silverio Obando physical exercise, frequency, days per week no Liliana Feldman caffeine use, averag e drinks per day yes Liliana Feldman passive cigarette sm jese exposure no Liliana Youngand smoking status Never smoker Liliana Young lizzy social history reviewed E&M revi ewed - no changes required Silverio Obando social history E&M Marital Statu s: Single L peewee with family/friends E thnicity: Smoking History: P yasmin has never smoked. Kvng Valverde MD physical exercise, frequency, days per week no Dottie Yin caffeine use, averag e drinks per day yes Dottie Yin passive cigarette sm jese exposure no Dottie Yin smoking status Never smoker Dottie Yin social history reviewed E&M revi ewed - no changes required Kvng Valverde MD social history reviewed E&M revi ewed - no changes required Kvng Valverde MD social history reviewed E&M revi ewed - no changes required Silverio Obando social history E&M Marital Statu s: Single L peewee with family/friends E thnicity: Smoking History: P yasmin has never smoked. Keli Tyler social history reviewed E&M revi ewed - no changes required Keli Tyler physical exercise, frequency, days per week no Zonia Ochoa caffeine use, averag e drinks per day yes Zonia Ochoa passive cigarette sm jese exposure no Zonia Ochoa smoking status Never smoker Zonia Jose D rivera social history E&M Marital Statu s: Single L peewee with family/friends E thnicity: Smoking History: P yasmin has never smoked. Kvng Valverde MD social history reviewed E&M revi ewed - no changes required Kvng Valverde MD physical exercise, frequency, days per week no Shanice Pacheco caffeine use, averag e drinks per day yes Shanice Pacheco passive cigarette sm jese exposure no Shanice Pacheco smoking status Never smoker Shanice chamberlain drug use none Vince Hernandez alcohol use no Vince Hernandez social history E&M Marital Statu s: Single L peewee with family/friends E thnicity: S moking History: P yasmin has never smoked. Vince Plascencia [place] social history reviewed E&M revi ewed - no changes required Vince Plascencia David social history E&M Marital Statu s: Single L peewee with family/friends E thnicity: Smoking History: P yasmin has never smoked. Kvng Valverde MD social history reviewed E&M revi ewed - no changes required Gus Potts physical exercise, frequency, days per week no David Marsha caffeine use, averag e drinks per day yes David Paredesyyum passive cigarette sm jese exposure no David Marsha smoking status Never smoker David Paredesyyum social history E&M Marital Statu s: Single L peewee with family/friends E thnicity: Smoking History: P yasmin has never smoked. Kvng Valverde MD social history reviewed E&M revi ewed - no changes required Kvng Valverde MD physical exercise, frequency, days per week no Zonia Ochoa caffeine use, averag e drinks per day yes Zonia Ochoa passive cigarette sm jese exposure no Zonia Ochoa smoking status Never smoker Zonia rivera social history E&M Marital Statu s: Single L peewee with family/friends E thnicity: Smoking History: P yasmin has never smoked. Kvng Valverde MD social history reviewed E&M revi ewed - no changes required Kvng Valverde MD physical exercise, frequency, days per week no [facility] caffeine use, averag e drinks per day yes [facility] passive cigarette sm jese exposure no [facility] smoking status Never smoker [facility] social history E&M Marital Statu s: Single L peewee with family/friends E thnicity: Smoking History: Storm hoffman has never smoked. Kvng Valverde MD social history reviewed E&M revi ewed - no changes required Kvng Valverde MD physical exercise, frequency, days per week no Zonia Ochoa caffeine use, averag e drinks per day yes Zonia Ochoa passive cigarette sm jese exposure no Zonia Ochoa smoking status Never smoker Zonia Jose D rivera social history reviewed E&M revi ewed - no changes required Kvng Valverde MD social history E&M Marital Statu s: Single L peewee with family/friends E thnicity: Smoking History: Storm hoffman has never smoked. Kvng Valverde MD physical exercise, frequency, days per week no [facility] alcohol use, average drinks per day no [facility] alcohol use no [facility] caffeine use, averag e drinks per day yes [facility] drug use none [facility] passive cigarette sm jese exposure no [facility] smoking status [facility] E&M revi ewed - no changes required Kvng Valverde MD physical exercise, frequency, days per week no Jeanine Nowak'Ronaldo alcohol use, average drinks per day no Jeanine Nowak'Ronaldo alcohol use no Jeanine O'Ronaldo caffeine use, averag e drinks per day yes Jeanine Nowak'Ronaldo drug use none Jeanine Nowak'Ronaldo passive cigarette sm jese exposure no Jeanine O'Ronaldo smoking status Never smoker Jeanine Eliu'Ronaldo social history reviewed E&M revi ewed - no changes required Kvng Valverde MD physical exercise, frequency, days per week no Shanice Kayceeelder alcohol use, average drinks per day no Shanice Kayceeelder alcohol use no Shanice Millienerenaye lder caffeine use, averag e drinks per day yes Shanice Kayceeelder drug use none Shanice Kayceee lder passive cigarette sm jese exposure no Shanice Kayceeblancoer smoking status Never smoker Shanice Tomlin cintia social history E&M Marital Statu s: Single L peewee with family/friends E thnicity: Smoking History: P yasmin has never smoked. Kvng Valverde MD social history reviewed E&M revi ewed - no changes required Kvng Valverde MD physical exercise, frequency, days per week no Amarilis Shen alcohol use, average drinks per day no Amarilis Shen alcohol use no Amarilis Shen caffeine use, averag e drinks per day yes Amarilis Shen drug use none Amarilis Shen passive cigarette sm jese exposure no Amarliis Shen smoking status Never smoker Amarilis Shen social history reviewed E&M revi ewed - no changes required Lisa Manuel NP physical exercise, frequency, days per week no Amarilis Shen alcohol use, average drinks per day no Amarilis Shen alcohol use no Amarilis Shen caffeine use, averag e drinks per day yes Amarilis Shen drug use none Amarilis Shen passive cigarette sm jese exposure no Amarilis Shen smoking status Never smoker Amarilis Shen number of grandchildren Kvng Valverde MD T chris Valverde MD social history reviewed E&M revi ewed - no changes required Kvng Valverde MD physical exercise, frequency, days per week no Amarilis Shen alcohol use, average drinks per day no Amarilis Shen alcohol use no Amarilis Shen caffeine use, averag e drinks per day yes Amarilis Shen drug use none Amarilis Shen passive cigarette sm jese exposure no Amarilis Shen smoking status Never smoker Amarilis Shen social history reviewed E&M revi ewed - no changes required Kvng Valverde MD physical exercise, frequency, days per week no Brandan Etienne alcohol use, average drinks per day no Brandan Etienne alcohol use no Brandan Velarde nsroro caffeine use, averag e drinks per day yes Brandan Etienne drug use none Brandan Velarde nson passive cigarette sm jese exposure no Brandan Etienne smoking status Never smoker Brandan Higgins social history reviewed E&M revi ewed - no changes required Azra Becerril physical exercise, frequency, days per week no Azra Lakeland alcohol use, average drinks per day no Azra [place] alcohol use no Azra [place] caffeine use, averag e drinks per day yes Azra [place] drug use none Azra Jone passive cigarette sm jese exposure no Azra Jone smoking status Never smoker Azra Jone social history reviewed E&M revi ewed - no changes required Kvng Valverde MD physical exercise, frequency, days per week no Delfino Dixon alcohol use, average drinks per day no Delfino Dixon alcohol use no Windham Dixon caffeine use, averag e drinks per day yes [place] Dixon drug use none Delfino Dixon passive cigarette sm jese exposure no Delfino Dixon smoking status Never smoker Delfino laurent social history reviewed E&M revi ewed - no changes required Kvng Valverde MD physical exercise, frequency, days per week no Brandan tEienne alcohol use, average drinks per day no Brandan Etienne alcohol use no Brandan drakeon caffeine use, averag e drinks per day yes Brandan Etienne drug use none Brandan drakeon passive cigarette sm jese exposure no Brandan Etienne smoking status Never smoker Brandan Higgins social history reviewed E&M revi ewed - no changes required Nataleegi Alonso physical exercise, frequency, days per week no Natalee Greeneann alcohol use, average drinks per day no Natalee Alonso alcohol use no Natalee Alonso caffeine use, averag e drinks per day yes Natalee Greeneann drug use none Natalee Greeneann passive cigarette sm jese exposure no Natalee Alonso smoking status Never smoker Natalee Crow ada social history reviewed E&M revi ewed - no changes required Kvng Valverde MD physical exercise, frequency, days per week no Natalee Alonso alcohol use, average drinks per day no Natalee Greeneann alcohol use no Natalee Greeneann caffeine use, averag e drinks per day yes Natalee Alonso drug use none Natalee Greeneann passive cigarette sm jese exposure no Natalee Greeneann smoking status Never smoker Natalee Crow ada social history reviewed E&M revi ewed - no changes required Kvng Valverde MD physical exercise, frequency, days per week no Natalee Alonso alcohol use, average drinks per day no Natalee Alonso alcohol use no Natalee Alonso caffeine use, averag e drinks per day yes Natalee Alonso drug use none Natalee Alonso passive cigarette sm jese exposure no Natalee Alonso smoking status Never smoker Natalee Crow n social history reviewed E&M revi ewed - no changes required Kvng Valverde MD physical exercise, frequency, days per week no Natalee Patel alcohol use, average drinks per day no Natalee Patel alcohol use no Natalee Patel caffeine use, averag e drinks per day yes Natalee Patel drug use none Natalee Patel passive cigarette sm jese exposure no Natalee Patel smoking status Never smoker Natalee Patel social history reviewed E&M revi ewed - no changes required Kvng Valverde MD physical exercise, frequency, days per week no Natalee Alonso alcohol use, average drinks per day no Natalee Alonso alcohol use no Natalee Alonso caffeine use, averag e drinks per day yes Natalee Alonso drug use none Natalee Alonso passive cigarette sm jese exposure no Natalee Alonso smoking status Never smoker Natalee Crow n social history reviewed E&M revi ewed - no changes required Kvng Valverde MD smoking status Never smoker Cathy Jazmin social history reviewed E&M revi ewed - no changes required Kvng Valverde MD alcohol use no Shanice tamayo smoking status Never smoker Shanice chamberlain social history reviewed E&M revi ewed - no changes required Kvng Valverde MD physical exercise, frequency, days per week no Natalee Alonso alcohol use, average drinks per day no Natalee Alonso alcohol use no Natalee Alonso caffeine use, averag e drinks per day yes Natalee Alonso drug use none Natalee Alonso passive cigarette sm jese exposure no Natalee Alonso smoking status Never smoker Natalee Crow n social history reviewed E&M isai shields - no changes required Kvng Valverde MD alcohol use no Shanice tamayo smoking status Never smoker Shanice Tomlin cintia drug use none Kvng Valverde MD social history reviewed E&M reviewed Kvng Valverde MD drug use no Toño Mann RN passive cigarette sm jese exposure no Toño Mann RN smoking status never smoker Toño Mann RN social history reviewed E&M reviewed Toño Mann RN drug use none Kvng Valverde MD social history reviewed E&M reviewed Kvng Valverde MD social history reviewed E&M reviewed Toño Mann RN social history reviewed E&M reviewed Toño Mann RN social history E&M Marital Statu s: Single L peewee with family/friends E thnicity: Toño Mann RN caffeine use, averag e drinks per day yes Toño Mann RN alcohol use, average drinks per day no Toño Mann RN smoking status Non-Smoker Toño Mann RN social history reviewed E&M reviewed Toño Mann RN physical exercise, frequency, days per week no [employer] caffeine use, averag e drinks per day yes [employer] FUNCTIONAL STATUS Date Observation Value Provider HRA, CV Assess/Plan, Angina (inactive) Management Plan continue current therapy Silverio Obando HRA, CV Assess/Plan, Angina (inactive) Management Plan continue current therapy Silverio Obando HRA, CV Assess/Plan, Angina (inactive) Management Plan continue current therapy Silverio Horvathzai HRA, CV Assess/Plan, Angina (inactive) Management Plan continue current therapy Silverio Ahmedzai HRA, CV Assess/Plan, Angina (inactive) Management Plan continue current therapy Silverio Ahmedzai HRA, CV Assess/Plan, Angina (inactive) Management Plan continue current therapy Silverio Ahmedzai HRA, CV Assess/Plan, Angina (inactive) Management Plan continue current therapy Silverio Ahmedzai HRA, CV Assess/Plan, Angina (inactive) Management Plan continue current therapy Toney Pulido MD HRA, CV Assess/Plan, Angina (inactive) Management Plan continue current therapy Kvng Valverde MD HRA, CV Assess/Plan, Angina (inactive) Management Plan continue current therapy Silverio Ahmedzai HRA, CV Assess/Plan, Angina (inactive) Management Plan continue current therapy Silverio Ahmedzai HRA, CV Assess/Plan, Angina (inactive) Management Plan continue current therapy Silverio Ahmedzai HRA, CV Assess/Plan, Angina (inactive) Management Plan continue current therapy Silverio Ahmedzai HRA, CV Assess/Plan, Angina (inactive) Management Plan continue current therapy Silverio Ahmedzai HRA, CV Assess/Plan, Angina (inactive) Management Plan continue current therapy Silverio Ahmedzai HRA, CV Assess/Plan, Angina (inactive) Management Plan continue current therapy, antianginal therapy Kvng Valverde MD HRA, CV Assess/Plan, Angina (inactive) Management Plan continue current therapy Kvng Valverde MD HRA, CV Assess/Plan, Angina (inactive) Management Plan continue current therapy Lisa Manuel NP HRA, CV Assess/Plan, Angina (inactive) Management Plan continue current therapy Kvng Valverde MD HRA, CV Assess/Plan, Angina (inactive) Management Plan continue current therapy Kvng Valverde MD HRA, CV Assess/Plan, Angina (inactive) Management Plan antianginal therapy Kvng Valverde MD HRA, CV Assess/Plan, Angina (inactive) Management Plan schedule PCI Kvng Valverde MD HRA, CV Assess/Plan, Angina (inactive) Management Plan continue current therapy Kvng Valverde MD HRA, CV Assess/Plan, Angina (inactive) Management Plan continue current therapy Kvng Valverde MD MENTAL STATUS Date Observation Value Provider energy level yes Rani Tebid energy level yes Rani Tebid energy level yes Rani Tebid energy level yes Rani Tebid energy level yes Rani Tebid energy level yes Rockfall Tebid energy level yes Rockfall Tebid energy level yes Rockfall Tebid energy level yes Rockfall Tebid energy level yes Rockfall Tebid energy level yes Rockfall Tebid energy level yes Rockfall Tebid energy level yes Rockfall Tebid energy level yes Rockfall Tebid energy level yes Rockfall Tebid energy level yes Rockfall Tebid energy level yes Rockfall Tebid energy level yes Rockfall Tebid energy level yes Rani Tebid energy level yes Rani Tebid energy level yes Rani Tebid energy level yes Rani Tebid energy level yes Rani Tebid energy level yes Rani Tebid energy level yes Rockfall Tebid energy level yes Rani Tebid energy level yes Rani Tebid energy level yes Rani Tebid energy level yes Rani Tebid energy level yes Rani Tebid energy level yes Rockfall Tebid energy level no Rani Tebid energy level no Rockfall Tebid energy level no Rockfall Tebid energy level yes Rockfall Tebid energy level yes Rockfall Tebid energy level yes Rockfall Tebid energy level yes Rockfall Tebid energy level yes Rockfall Tebid energy level yes Rockfall Tebid energy level yes Rockfall Tebid energy level yes Rockfall Tebid energy level yes Rockfall Tebid energy level yes Rockfall Tebid energy level yes Rockfall Tebid energy level yes Rockfall Tebid energy level yes Rockfall Tebid energy level yes Rockfall Tebid energy level yes Rockfall Tebid energy level yes Rockfall Tebid energy level yes Rockfall Tebid energy level yes Rockfall Tebid energy level yes Rockfall Tebid energy level yes Rockfall Tebid energy level yes Rockfall Tebid energy level yes Rockfall Tebid energy level yes Rockfall Tebid energy level yes Rockfall Tebid energy level yes Rockfall Tebid energy level yes Rockfall Tebid energy level yes Rockfall Tebid energy level no Rockfall Tebid energy level no Rockfall Tebid energy level yes Rockfall Tebid energy level no Rockfall Tebid energy level no Rockfall Tebid energy level no Rockfall Tebid energy level yes Rockfall Tebid energy level no Rockfall Tebid assessment of judgme nt and insight E&M Alert and oriented to time, place and person. Mood and affect are normal. Kvng Valverde MD assessment of judgme nt and insight E&M Alert and oriented to time, place and person. Mood and affect are normal. Toño Mann RN assessment of judgme nt and insight E&M Alert and oriented to time, place and person. Mood and affect are normal. Kvng Valverde MD assessment of judgme nt and insight E&M Alert and oriented to time, place and person. Mood and affect are normal. Toño Mann RN assessment of judgme nt and insight E&M Alert and oriented to time, place and person. Mood and affect are normal. Toño Mann RN assessment of judgme nt and insight E&M Alert and oriented to time, place and person. Mood and affect are normal. Toño Mann RN FAMILY HISTORY Family Member Condition Father MS male <55 Mother Family History of Hy pertension: Mother Family History of Di abetes: Mother Family History Breas t Cancer: Father Family History Coron yash Heart Disease male < 55: INSURANCE PROVIDERS Payer name Policy type / Coverage type [employer] party ID [employer] [id number] [place] Medicare [id number] ADVANCE DIRECTIVES Name Date DISCUSSED - NO DECISION MADE TREATMENT PLAN Date Name Performer [id number],S, Silverio Ahmedza i [id number],S, Silverio Ahmedza i [id number],S, Silverio Ahmedza i [id number],S, Silverio Ahmedza i [id number],S, Silverio Ahmedza i [id number],S, Silverio Ahmedza i [id number],S, Silverio Ahmedza i [id number],B, Silverio Ahmedza i [id number],S, Silverio Ahmedza i [id number],S, Silverio Ahmedza i [id number],S, Silverio Ahmedza i [id number],S, Silverio Ahmedza i [id number],S, Silverio Ahmedza i [id number],S, Silverio Ahmedza i [id number],B,Pt reports no SOB today Toney Pulido MD [id number],S,P t tried multiple types of compression stockings without helping symptoms. W ill proceed with Venaseal of right leg. Also discussed customized stockings Toney Pulido MD [id number],S,161/69 today Toney Pulido MD [id number],S,P t reports some leg cramping and more pain/swelling in her right leg. Cramping has been somewhat improving. Toney Pulido MD [id number],W, Kvng Valverde MD [id number],S, Kvng Valverde MD [id number],S, Kvng Valverde MD [id number],B, Kvng Valverde MD [id number],S, Kvng Valverde MD [id number],S, Silverio Clark i [id number],S, Silverio Finleymedza i [id number],S, Silverio Ahmedza i [id number],S, Silverio Ahmedza i [id number],S, Silverio Ahmedza i [id number],S, Silverio Ahmedza i [id number],S, Silverio Ahmedza i [id number],S, Silverio Ahmedza i [id number],S, Silverio Ahmedza i [id number],S, Silverio Ahmedza i [id number],S, Silverio Ahmedza i [id number],S, Silverio Ahmedza i [id number],S, Silverio Ahmedza i [id number],S, Silverio Ahmedza i [id number],S, Silverio Ahmedza i [id number],S, Silverio Ahmedza i [id number],S, Silverio Ahmedza i [id number],S, Silverio Ahmedza i [id number],S, Silverio Ahmedza i [id number],S, Silverio Ahmedza i [id number],S, Silverio Ahmedza i [id number],S, Silverio Ahmedza i [id number],S, Silverio Ahmedza i [id number],S, Silverio Ahmedza i [id number],S, Silverio Ahmedza i [id number],S, Silverio Ahmedza i [id number],S, Silverio Ahmedza i [id number],S, Silverio Ahmedza i [id number],S, Silverio Ahmedza i [id number],S, Silverio Ahmedza i [id number],S, Silverio Ahmedza i [id number],S, Silverio Ahmedza i [id number],S, Silverio Ahmedza i [id number],S, Silverio Ahmedza i [id number],S, Silverio Ahmedza i [id number],S, Silverio Ahmedza i [id number],S, Silverio Ahmedezio i [id number],S, Kvng Valverde MD [id number],W, Kvng Valverde MD [id number],B, Kvng Valverde MD [id number],B, Kvng Valverde MD [id number],W, Kvng Valverde MD Cardiology: O rders: C BC (INCLUDES DIFF/PLT) (6399) F ERRITIN (457) I JONG AND TOTAL IRON BINDING CAPACITY (7573) C OMPREHENSIVE METABOLIC PANEL, W/EGFR (85050) L IPID PANEL (7600) PROBNP, N TERMINAL (05190) T SH, free T4, total T3 (7444) H EMOGLOBIN A1c (496) Kvng Valverde MD Cardiology Kvng Valverde MD Cardiology Kvng Valverde MD Cardiology Kvng Valverde MD Cardiology Kvng Valverde MD Cardiology Kvng Valverde MD Cardiology:This visi t has been a part of the consistent, comprehensive, and ongoing management of the chronic medical condition(s) listed above for the patient. Kvng Valverde MD Cardiology:This visi t has been a part of the consistent, comprehensive, and ongoing management of the chronic medical condition(s) listed above for the patient. Kvng Valverde MD Cardiology Silverio Obando Cardiology Silverio Obando Cardiology: H er updated medication list for this problem includes: Aspirin 81 Mg Tablet,delayed Release (dr/ec) (Aspirin) ..... 1 tablet by mouth once a day Orders: M on[facility] - [facility] ([facility] Cardiac[id number] H er updated medication list for this problem includes: Losartan 50 Mg Tablet (Losartan) ..... Take 1/2 tablet by mouth twice a day Aspirin 81 Mg Tablet,delayed Release (dr/ec) (Aspirin) ..... 1 tablet by mouth once a day Metformin 1,000 Mg Tablet Extended Release 24hr (Metformin) ..... Take 1 tablet twice a day Toujeo Solostar U-300 Insulin 300 Unit/ml (1.5 Ml) Insulin Pen (Insulin glargine u-300 conc) ..... Inject 36 unit once a day Trulicity 0.75 Mg/0.5 Ml Pen Injector (Dulaglutide) ..... Inject 1 once a week [facility] Card[facility] Card[facility] Card[facility] Cardiology: H er updated medication list for this problem includes: Losartan 50 Mg Tablet (Losartan) ..... Take 1/2 tablet by mouth twice a day Furosemide 20 Mg Tablet (Furosemide) ..... Take 1 tablet by mouth every day Aspirin 81 Mg Tablet,delayed Release (dr/ec) (Aspirin) ..... 1 tablet by mouth once a day BP today: 135/81 P rior BP: 128/98 (01/30/2024) Prior 10 Yr Risk Heart Disease: Not enough information (11/29/2021) Labs Reviewed: C reat: 0.87 (04/08/2021) C hol: 168 (04/08/2021) HDL: 54 (04/08/2021) LDL: 83 (04/08/2021) T (04/08/2021) [facility] Cardiology:This visi t has been a part of the consistent, comprehensive, and ongoing management of the chronic medical condition(s) listed above for the patient. Kvng Valverde MD Cardiology [facility] Cardiology [facility] Card[facility] Cardiology: O rders: C arotid Duplex Bilateral (CPT-49212) [facility] Cardiology: H er updated medication list for this problem includes: Losartan 50 Mg Tablet (Losartan) ..... Take 1/2 tablet by mouth twice a day Aspirin 81 Mg Tablet,delayed Release (dr/ec) (Aspirin) ..... 1 tablet by mouth once a day Metformin 1,000 Mg Tablet Extended Release 24hr (Metformin) ..... Take 1 tablet twice a day Toujeo Solostar U-300 Insulin 300 Unit/ml (1.5 Ml) Insulin Pen (Insulin glargine u-300 conc) ..... Inject 36 unit once a day Trulicity 0.75 Mg/0.5 Ml Pen Injector (Dulaglutide) ..... Inject 1 once a week [facility] Cardiology: H er updated medication list for this problem includes: Losartan 50 Mg Tablet (Losartan) ..... Take 1/2 tablet by mouth twice a day Furosemide 20 Mg Tablet (Furosemide) ..... Take 1 tablet by mouth every day Aspirin 81 Mg Tablet,delayed Release (dr/ec) (Aspirin) ..... 1 tablet by mouth once a day [facility] Cardiology Erwin Hernandez Cardiology:compression advised T cornell Hernandez Cardiology Erwin Hernandez Cardiology Erwin Hernandez Cardiology:Denies angina, SOB. C ontinue medical therapy Erwin Hernandez Cardiology [facility] Cardiology: B P today: 143/74 P rior BP: 118/64 (10/02/2023) Prior 10 Yr Risk Heart Disease: Not enough information (11/29/2021) Labs Reviewed: C reat: 0.87 (04/08/2021) Chol: 168 (04/08/2021) HDL: 54 (04/08/2021) LDL: 83 (04/08/2021) T (04/08/2021) [facility] Cardiology [facility] Cardiology: B P today: 118/64 P rior BP: 134/66 (09/05/2023) Prior 10 Yr Risk Heart Disease: Not enough information (11/29/2021) Labs Reviewed: C reat: 0.87 (04/08/2021) Chol: 168 (04/08/2021) HDL: 54 (04/08/2021) LDL: 83 (04/08/2021) T (04/08/2021) [facility] Cardiology [facility] Cardiology [facility] Cardiology [facility] Cardiology: H er updated medication list for this problem includes: Ezetimibe 10 Mg Tablet (Ezetimibe) ..... Take 1 tablet by mouth every day Atorvastatin 80 Mg Tablet (Atorvastatin) ..... Take 1 tablet by mouth every evening [facility] Cardiology:MARIBEL 09/09 23 which revealed normal LVF, The Aortic Valve Mean Gradient is 14.7 m Hg . The ESHA is 1.6 cm2 by planimetry and 1.2 cm2 by calculation. The dimensionless index is 0.5. [facility] Card[facility] Cardiology:will have pt undergo MARIBEL to assess her aortic valve [facility] Cardiology:consider stress cardi ac PET [facility] Cardiology [facility] Cardiology [facility] Cardiology:Pt reports no SOB tod ay Toney Pulido MD Cardiology:Pt tried multiple types of compression stockings without helping symptoms. W ill proceed with Venaseal of right leg. Also discussed customized stockings Toney Pulido MD Cardiology:161/69 today Toney bond MD Cardiology:Pt report s some leg cramping and more pain/swelling in her right leg. Cramping has been somewhat improving. Toney Pulido MD Cardiology Kvng Valverde MD Cardiology Kvng Valverde MD Cardiology Kvng Valverde MD Cardiology Kvng Valverde MD Cardiology Kvng Valverde MD Cardiology [facility] Cardiology [facility] Cardiology follow up Kvng rios MD Cardiology follow up Kvng rios MD Cardiology follow up Kvng rios MD Cardiology follow up Kvng rios MD Cardiology follow up Kvng rios MD Cardiology Follow up Toniya Willy rios MD Cardiology Follow up Toniya Willy rios MD Cardiology Follow up Toniya Willy rios MD Cardiology Follow up Toniya Willy rios MD Cardiology Follow up Toniya Willy rios MD Cardiology Vince C [place] Cardiology:The patie nt is using CPAP on a regular basis. The patient has been benefiting from therapy and should continue use. Vince Temo David Cardiology Vince Plascencia David Cardiology Toncristin Valverde MD Cardiology Toncristin Valverde MD Cardiology Tonithomas Valverde MD Cardiology Tonithomas Valverde MD Cardiology Tonithomas Valverde MD Cardiology Toncristin Valverde MD Cardiology Toncristin Valverde MD Cardiology Toncristin Valverde MD Cardiology Toncristin Valverde MD Cardiology Tonithomas Valverde MD Cardiology Toncristin Valverde MD Cardiology Toncristin Valverde MD Cardiology Toncristin Valverde MD Cardiology Toncristin Valverde MD Cardiology Toncristin Valverde MD Cardiology follow up Tonithomas rios MD Cardiology follow up Toniya Willy rios MD Cardiology follow up Toniya Willy rios MD Cardiology follow up Toniya Willy rios MD Cardiology follow up Toniya Willy rios MD Cardiology Toncristin Valverde MD Cardiology Toncristin Valverde MD Cardiology Toncristin Valverde MD Cardiology Toncristin Valverde MD Cardiology Toncristin Valverde MD Cardiology Toncristin Valverde MD Cardiology Toncristin Valverde MD Cardiology Toncristin Valverde MD Cardiology Toncristin Valverde MD Cardiology Toncristin Valverde MD Cardiology Toncristin Valverde MD Cardiology Follow up - ltr done Toniya Valverde MD Cardiology Follow up - ltr done Kvng Vavlerde MD Cardiology Follow up - ltr done Kvng Valverde MD Cardiology Follow up - ltr done Kvng Valverde MD Cardiology Follow up - ltr done Kvng Valverde MD Cardiology follow up Kvng rios MD Cardiology follow up Kvng rios MD Cardiology follow up Kvng rios MD Cardiology follow up Kvng rios MD Cardiology follow up Kvng rios MD Cardiology follow up Kvng rios MD Cardiology follow up - ltr done Lisa Manuel JALIL Cardiology follow up - ltr done Lisa Manuel JALIL Cardiology follow up - ltr done: [place] cp. Lisa Manuel JALIL Cardiology follow up - ltr done: Evaluation to date includes coronary angiography, nuclear studies and echocardiogram. There is no prior history of angiographic proven CAD. Significant associated history and risk factors include obesity, hypertension, abnormal lipids, diabetes, FH heart disease and sleep apnea. Her last echo showed moderate Cath 11/2016 showed moderate aortic stenosis, gradient 14mmHg on cath. Mild pulmonary HTN on right heart cath. Lisa Manuel JALIL Cardiology follow up - ltr done: C/o stabbing pain in her lower back. X R lower extremity 10/08 showed no abnormality. Lisa Manuel NP Cardiology follow up Kvng rios MD Cardiology follow up Kvng rios MD Cardiology follow up Kvng rios MD Cardiology follow up Kvng rios MD Cardiology Kvng Valverde MD Cardiology Kvng Valverde MD Cardiology Kvng Valverde MD Cardiology:Gradient 14mmHg on cath, consistent with mild aortic stenosis. Will follow. Kvng Valverde MD Cardiology:On Lexapro. Kvng villegas MD Cardiology:LDL 84 in May. To rashi Valverde MD Cardiology:Sugars ru nning high per pt. Dietary compliance is stressed. Kvng Valverde MD Electrophysiology follow up Antwan Valverde MD Electrophysiology follow up Antwan Valverde MD Electrophysiology follow up Antwan Valverde MD Electrophysiology follow up Antwan Valverde MD Cardiology Kvng Valverde MD Cardiology Kvng Valverde MD Cardiology Kvng Valverde MD Cardiology Kvng Valverde MD Cardiology Kvng Valverde MD Cardiology Kvng Valverde MD Cardiology Kvng Valverde MD Cardiology Kvng Valverde MD Cardiology Kvng Valverde MD Cardiology Kvng Valverde MD Cardiology Kvng Valverde MD Cardiology Kvng Valverde MD Cardiology Kvng Valverde MD Cardiology Kvng Valverde MD Cardiology Kvng Valverde MD Cardiology Kvng Valverde MD Cardiology Kvng Valverde MD Cardiology Kvng Valverde MD Cardiology Kvng Valverde MD Cardiology Kvng Valverde MD Cardiology Kvng Valverde MD Cardiology Kvng Valverde MD Cardiology Kvng Valverde MD Cardiology Kvng Valverde MD Cardiology Kvng Valverde MD Cardiology Kvng Valverde MD Cardiology Kvng Valverde MD Cardiology Toncristin Valverde MD Cardiology Kvng Valverde MD Cardiology Hectorithomas Valverde MD Follow up : T he following medications were removed from the medication list: Lisinopril 2.5 Mg Tabs (Lisinopril) ..... One tab. daily Her updated medication list for this problem includes: Lasix 20 Mg Tabs (Furosemide) ..... One a day Kvng Valverde MD Follow up : H er updated medication list for this problem includes: Aspirin 81 Mg Tabs (Aspirin) ..... One tab. daily Carotid Duplex Scan: M ild plaque with less than 50% stenosis of the internal carotid arteries bilaterally. Vertebral flow is antegrade bilaterally. - [facility] (06/06/2013) Kvng Valverde MD Follow up: H er updated medication list for this problem includes: Lipitor 10 Mg Tabs (Atorvastatin calcium) ..... Once daily Fenofibrate 160 Mg Tabs (Fenofibrate) ..... Once daily Kvng Valverde MD Follow up: H er updated medication list for this problem includes: Lasix 20 Mg Tabs (Furosemide) ..... One a day Lisinopril 2.5 Mg Tabs (Lisinopril) ..... One tab. daily Kvng Valverde MD follow up: H er updated medication list for this problem includes: Lipitor 10 Mg Tabs (Atorvastatin calcium) ..... Once daily Fenofibrate 160 Mg Tabs (Fenofibrate) ..... Once daily Orders: C omplete Echo (CPT-80605) Mook Green MD follow up: H er updated medication list for this problem includes: Aspirin 81 Mg Tabs (Aspirin) ..... One tab. daily Orders: C omplete Echo (CPT-16145) X -Ray, Chest, PA & Lateral (CPT-10273) Mook Green MD follow up Mook Green MD follow up Mook Green MD Follow Up: H er updated medication list for this problem includes: Aspirin 81 Mg Tabs (Aspirin) ..... One tab. daily Byetta 10 Mcg Pen 10 Mcg/0.04ml Soln (Exenatide) ..... Bid Metformin Hcl 500 Mg Tabs (Metformin hcl) ..... Twice daily Lisinopril 2.5 Mg Tabs (Lisinopril) ..... One tab. daily Lantus Solostar Soln (Insulin glargine soln) ..... As directed Humalog 100 Unit/ml Soln (Insulin lispro (human)) ..... As directed BP today: 121/65 Prior BP: 123/70 (07/08/2013) Labs Reviewed: H gBA1c: 10.9 (05/30/2013) Creat: 0.70 (05/30/2013) Kvng Valverde MD Follow Up: T he following medications were removed from the medication list: Coreg 3.125 Mg Tabs (Carvedilol) ..... Bid Her updated medication list for this problem includes: Lisinopril 2.5 Mg Tabs (Lisinopril) ..... One tab. daily BP today: 121/65 Prior BP: 123/70 (07/08/2013) H gb: 11.5 (2009) HCT: 36.5 (2009) WBC: 11.5 (2009) B UN: 8 (05/30/2013) Creat: 0.70 (05/30/2013) Glucose: 170 (05/30/2013) N a+: 135 (05/30/2013) K+: 4.0 (05/30/2013) Cl: 99 (05/30/2013) CHOL: 218 (05/30/2013) LDL: 118 (05/30/2013) HDL: 48 (05/30/2013) T (05/30/2013) T SH: 1.120 (05/30/2013) T4 (total): 8.1 (12/02/2008) N uclear Stress Findings: 1. Normal myocardial perfusion imaging after vasodilator stress with Regadenoson. 2 . Normal left ventricular systolic function with a calculated ejection fraction of 63%. 3 . No obvious significant scintigraphic evidence of myocardial ischemia or scar. - GC (07/11/2013) C ardiac Cath: Normal coronary arteries. Mild antral hypokinesis with an EF of 50%. 2+ . [facility] (08/01/2006) Kvng Valverde MD Follow Up: T he following medications were removed from the medication list: Crestor 20 Mg Tabs (Rosuvastatin calcium) ..... One tab. daily Zetia 10 Mg Tabs (Ezetimibe) ..... 1 tablet by mouth daily Her updated medication list for this problem includes: Lipitor 10 Mg Tabs (Atorvastatin calcium) ..... Once daily Fenofibrate 160 Mg Tabs (Fenofibrate) ..... Once daily B P today: 121/65 Prior BP: 123/70 (07/08/2013) C HOL: 218 (05/30/2013) LDL: 118 (05/30/2013) HDL: 48 (05/30/2013) T (05/30/2013) Kvng Valverde MD test f/u: T he following medications were removed from the medication list: Singulair 10 Mg Tabs (Montelukast sodium) ..... Daily Spiriva Handihaler Caps (Tiotropium bromide monohydrate caps) ..... 1 puff daily Pulmonary Functions Reviewed: O 2 sat: 96 (03/11/2011) Kvng Valverde MD test f/u: H er updated medication list for this problem includes: Crestor 20 Mg Tabs (Rosuvastatin calcium) ..... One tab. daily Zetia 10 Mg Tabs (Ezetimibe) ..... 1 tablet by mouth daily BP today: / Prior BP: 139/74 (03/11/2011) C HOL: 192 (12/02/2008) LDL: 102 (12/02/2008) HDL: 54 (12/02/2008) T (12/02/2008) Kvng Valverde MD test f/u: H er updated medication list for this problem includes: Aspirin 81 Mg Tabs (Aspirin) ..... One tab. daily Coreg 3.125 Mg Tabs (Carvedilol) ..... Bid Lisinopril 2.5 Mg Tabs (Lisinopril) ..... One tab. daily BP today: / Prior BP: 139/74 (03/11/2011) N uclear Stress Findings: 1. Normal myocardial perfusion imaging after vasodilator stress with Regadenoson. 2 . Normal left ventricular systolic function with a calculated ejection fraction of 56%. 3 . No obvious significant scintigraphic evidence of myocardial ischemia or scar. (03/15/2011) Cardiac Cath: Normal coronary arteries. Mild antral hypokinesis with an EF of 50%. 2+ MR. [facility] (08/01/2006) C arotid Doppler/Duplex: Mild plaque with less than 50% stenosis of the internal carotid arteries bilaterally. Vertebral flow is antegrade bilaterally. - [facility] (06/06/2013) C HOL: 192 (12/02/2008) LDL: 102 (12/02/2008) HDL: 54 (12/02/2008) T (12/02/2008) H gb: 11.5 (2009) HCT: 36.5 (2009) WBC: 11.5 (2009) B UN: 11 (2009) Creat: 0.9 (2009) Glucose: 113 (2009) N a+: 140 (2009) K+: 3.8 (2009) Cl: 104 (2009) TSH: 0.94 (12/02/2008) T4 (total): 8.1 (12/02/2008) Kvng Valverde MD test f/u: H er updated medication list for this problem includes: Aspirin 81 Mg Tabs (Aspirin) ..... One tab. daily Coreg 3.125 Mg Tabs (Carvedilol) ..... Bid Lisinopril 2.5 Mg Tabs (Lisinopril) ..... One tab. daily BP today: / Prior BP: 139/74 (03/11/2011) N uclear Stress Findings: 1. Normal myocardial perfusion imaging after vasodilator stress with Regadenoson. 2 . Normal left ventricular systolic function with a calculated ejection fraction of 56%. 3 . No obvious significant scintigraphic evidence of myocardial ischemia or scar. (03/15/2011) Cardiac Cath: Normal coronary arteries. Mild antral hypokinesis with an EF of 50%. 2+ MR. [facility] (08/01/2006) C arotid Doppler/Duplex: Mild plaque with less than 50% stenosis of the internal carotid arteries bilaterally. Vertebral flow is antegrade bilaterally. - [facility] (06/06/2013) C HOL: 192 (12/02/2008) LDL: 102 (12/02/2008) HDL: 54 (12/02/2008) T (12/02/2008) H gb: 11.5 (2009) HCT: 36.5 (2009) WBC: 11.5 (2009) B UN: 11 (2009) Creat: 0.9 (2009) Glucose: 113 (2009) N a+: 140 (2009) K+: 3.8 (2009) Cl: 104 (2009) TSH: 0.94 (12/02/2008) T4 (total): 8.1 (12/02/2008) Kvng Valverde MD test f/u: H er updated medication list for this problem includes: Aspirin 81 Mg Tabs (Aspirin) ..... One tab. daily Coreg 3.125 Mg Tabs (Carvedilol) ..... Bid Crestor 20 Mg Tabs (Rosuvastatin calcium) ..... One tab. daily Zetia 10 Mg Tabs (Ezetimibe) ..... 1 tablet by mouth daily Lisinopril 2.5 Mg Tabs (Lisinopril) ..... One tab. daily BP today: / Prior BP: 139/74 (03/11/2011) N uclear Stress Findings: 1. Normal myocardial perfusion imaging after vasodilator stress with Regadenoson. 2 . Normal left ventricular systolic function with a calculated ejection fraction of 56%. 3 . No obvious significant scintigraphic evidence of myocardial ischemia or scar. GC (03/15/2011) C ardiac Cath: Normal coronary arteries. Mild antral hypokinesis with an EF of 50%. 2+ MR. [facility] (08/01/2006) C arotid Doppler/Duplex: Mild plaque with less than 50% stenosis of the internal carotid arteries bilaterally. Vertebral flow is antegrade bilaterally. - [facility] (06/06/2013) C HOL: 192 (12/02/2008) LDL: 102 (12/02/2008) HDL: 54 (12/02/2008) T (12/02/2008) H gb: 11.5 (2009) HCT: 36.5 (2009) WBC: 11.5 (2009) B UN: 11 (2009) Creat: 0.9 (2009) Glucose: 113 (2009) N a+: 140 (2009) K+: 3.8 (2009) Cl: 104 (2009) TSH: 0.94 (12/02/2008) T4 (total): 8.1 (12/02/2008) Kvng Valverde MD Chest Pain, Echo don e today: T he following medications were removed from the medication list: Proventil Hfa Aers (Albuterol sulfate aers) Her updated medication list for this problem includes: Singulair 10 Mg Tabs (Montelukast sodium) ..... Daily Spiriva Handihaler Caps (Tiotropium bromide monohydrate caps) ..... 1 puff daily Kvng Valverde MD Chest Pain, Echo don e today: H er updated medication list for this problem includes: Crestor 20 Mg Tabs (Rosuvastatin calcium) ..... One tab. daily Zetia 10 Mg Tabs (Ezetimibe) ..... 1 tablet by mouth daily BP today: 139/74 Prior BP: 118/57 (04/06/2010) C HOL: 192 (12/02/2008) LDL: 102 (12/02/2008) HDL: 54 (12/02/2008) T (12/02/2008) Kvng Valverde MD Chest Pain, Echo don e today: H er updated medication list for this problem includes: Aspirin 81 Mg Tabs (Aspirin) ..... One tab. daily Coreg 3.125 Mg Tabs (Carvedilol) ..... Bid Crestor 20 Mg Tabs (Rosuvastatin calcium) ..... One tab. daily Zetia 10 Mg Tabs (Ezetimibe) ..... 1 tablet by mouth daily BP today: 139/74 Prior BP: 118/57 (04/06/2010) N uclear Stress Findings: Test is considered to be negative by ECG criteria at 79% of target heart rate. [facility] (12/02/2008) C ardiac Cath: Normal coronary arteries. Mild antral hypokinesis with an EF of 50%. 2+ MR. [facility] (08/01/2006) C arotid Doppler/Duplex: Mild plaque is seen in the RCCA. Less than 50% stenosis of the ICA bilaterally. The flow in the vertebra arteries is antegrade bilaterally. [facility] (06/26/2006) C HOL: 192 (12/02/2008) LDL: 102 (12/02/2008) HDL: 54 (12/02/2008) T (12/02/2008) H gb: 11.5 (2009) HCT: 36.5 (2009) WBC: 11.5 (2009) B UN: 11 (2009) Creat: 0.9 (2009) Glucose: 113 (2009) N a+: 140 (2009) K+: 3.8 (2009) Cl: 104 (2009) TSH: 0.94 (12/02/2008) T4 (total): 8.1 (12/02/2008) Kvng Valverde MD chest pain: H er updated medication list for this problem includes: Aspirin 81 Mg Tabs (Aspirin) ..... One tab. daily Byetta 10 Mcg Pen 10 Mcg/0.04ml Soln (Exenatide) ..... Bid Glimepiride 2 Mg Tabs (Glimepiride) ..... 2 tab daily Metformin Hcl 500 Mg Tabs (Metformin hcl) ..... Twice daily Actos Tabs (Pioglitazone hcl tabs) ..... Daily Amaryl 2 Mg Tabs (Glimepiride) ..... 1 1/2 tab daily BP today: 118/57 Prior BP: 122/84 (09/14/2009) Labs Reviewed: C reat: 0.9 (2009) Kvng Valverde MD chest pain: H er updated medication list for this problem includes: Aspirin 81 Mg Tabs (Aspirin) ..... One tab. daily Coreg 3.125 Mg Tabs (Carvedilol) ..... Bid Lasix Tabs (Furosemide tabs) ..... Daily BP today: 118/57 P rior BP: 122/84 (09/14/2009) Labs Reviewed: C reat: 0.9 (2009) C hol: 192 (12/02/2008) HDL: 54 (12/02/2008) LDL: 102 (12/02/2008) T (12/02/2008) Kvng Valverde MD chest pain: H er updated medication list for this problem includes: Crestor Tabs (Rosuvastatin calcium tabs) ..... Daily Zetia Tabs (Ezetimibe tabs) ..... Daily BP today: 118/57 Prior BP: 122/84 (09/14/2009) C HOL: 192 (12/02/2008) LDL: 102 (12/02/2008) HDL: 54 (12/02/2008) T (12/02/2008) Kvng Valverde MD chest pain: H er updated medication list for this problem includes: Aspirin 81 Mg Tabs (Aspirin) ..... One tab. daily Coreg 3.125 Mg Tabs (Carvedilol) ..... Bid BP today: 118/57 Prior BP: 122/84 (09/14/2009) N uclear Stress Findings: Test is considered to be negative by ECG criteria at 79% of target heart rate. [facility] (12/02/2008) C ardiac Cath: Normal coronary arteries. Mild antral hypokinesis with an EF of 50%. 2+ MR. [facility] (08/01/2006) C arotid Doppler/Duplex: Mild plaque is seen in the RCCA. Less than 50% stenosis of the ICA bilaterally. The flow in the vertebra arteries is antegrade bilaterally. [facility] (06/26/2006) C HOL: 192 (12/02/2008) LDL: 102 (12/02/2008) HDL: 54 (12/02/2008) T (12/02/2008) H gb: 11.5 (2009) HCT: 36.5 (2009) WBC: 11.5 (2009) B UN: 11 (2009) Creat: 0.9 (2009) Glucose: 113 (2009) N a+: 140 (2009) K+: 3.8 (2009) Cl: 104 (2009) TSH: 0.94 (12/02/2008) T4 (total): 8.1 (12/02/2008) E chocardiogram: TDS. Normal LV systolic function and size. Mild concentric LVH. Normal E/E` 5.0. LV EF 65%. TDS. Trace physiologic MR & TR. [facility] (02/10/2009) Kvng Valverde MD chest pain: H er updated medication list for this problem includes: Aspirin 81 Mg Tabs (Aspirin) ..... One tab. daily Coreg 3.125 Mg Tabs (Carvedilol) ..... Bid BP today: 118/57 Prior BP: 122/84 (09/14/2009) N uclear Stress Findings: Test is considered to be negative by ECG criteria at 79% of target heart rate. [facility] (12/02/2008) C ardiac Cath: Normal coronary arteries. Mild antral hypokinesis with an EF of 50%. 2+ MR. [facility] (08/01/2006) C arotid Doppler/Duplex: Mild plaque is seen in the RCCA. Less than 50% stenosis of the ICA bilaterally. The flow in the vertebra arteries is antegrade bilaterally. [facility] (06/26/2006) C HOL: 192 (12/02/2008) LDL: 102 (12/02/2008) HDL: 54 (12/02/2008) T (12/02/2008) H gb: 11.5 (2009) HCT: 36.5 (2009) WBC: 11.5 (2009) B UN: 11 (2009) Creat: 0.9 (2009) Glucose: 113 (2009) N a+: 140 (2009) K+: 3.8 (2009) Cl: 104 (2009) TSH: 0.94 (12/02/2008) T4 (total): 8.1 (12/02/2008) E chocardiogram: TDS. Normal LV systolic function and size. Mild concentric LVH. Normal E/E` 5.0. LV EF 65%. TDS. Trace physiologic MR & TR. [facility] (02/10/2009) Orders: Juan J KG (CPT-[id number]) Kvng Valverde MD chest pain: H er updated medication list for this problem includes: Aspirin 81 Mg Tabs (Aspirin) ..... One tab. daily Coreg 3.125 Mg Tabs (Carvedilol) ..... Bid Crestor Tabs (Rosuvastatin calcium tabs) ..... Daily Zetia Tabs (Ezetimibe tabs) ..... Daily BP today: 118/57 Prior BP: 122/84 (09/14/2009) N uclear Stress Findings: Test is considered to be negative by ECG criteria at 79% of target heart rate. [facility] (12/02/2008) C ardiac Cath: Normal coronary arteries. Mild antral hypokinesis with an EF of 50%. 2+ MR. [facility] (08/01/2006) C arotid Doppler/Duplex: Mild plaque is seen in the RCCA. Less than 50% stenosis of the ICA bilaterally. The flow in the vertebra arteries is antegrade bilaterally. [facility] (06/26/2006) C HOL: 192 (12/02/2008) LDL: 102 (12/02/2008) HDL: 54 (12/02/2008) T (12/02/2008) H gb: 11.5 (2009) HCT: 36.5 (2009) WBC: 11.5 (2009) B UN: 11 (2009) Creat: 0.9 (2009) Glucose: 113 (2009) N a+: 140 (2009) K+: 3.8 (2009) Cl: 104 (2009) TSH: 0.94 (12/02/2008) T4 (total): 8.1 (12/02/2008) Kvng Valverde MD Kvng Valverde MD : H er updated medication list for this problem includes: Coreg 3.125 Mg Tabs (Carvedilol) ..... Bid BP today: 127/78 Kvng Valverde MD : H er updated medication list for this problem includes: Proventil Hfa Aers (Albuterol sulfate aers) Singulair 10 Mg Tabs (Montelukast sodium) ..... Daily Spiriva Handihaler Caps (Tiotropium bromide monohydrate caps) ..... 1 puff daily Pulmonary Functions Reviewed: O 2 sat: 96 (02/10/2009) Kvng Valverde MD : B P today: 127/78 Prior BP: / () Kvng Valverde MD Kvng Valverde MD : H er updated medication list for this problem includes: Coreg 3.125 Mg Tabs (Carvedilol) ..... Bid BP today: 127/78 Prior BP: / () N uclear Stress Findings: Test is considered to be negative by ECG criteria at 79% of target heart rate. [facility] (12/02/2008) C ardiac Cath: Normal coronary arteries. Mild antral hypokinesis with an EF of 50%. 2+ MR. [facility] (08/01/2006) C arotid Doppler/Duplex: Mild plaque is seen in the RCCA. Less than 50% stenosis of the ICA bilaterally. The flow in the vertebra arteries is antegrade bilaterally. [facility] (06/26/2006) E chocardiogram: TDS. Normal LV systolic function EF 65%. LVH. Dilated LV. Moderate LAE. Trace MR. Trace TR with PA pressure of 21mmHg. [facility] (06/26/2006) Kvng Valverde MD : H er updated medication list for this problem includes: Coreg 3.125 Mg Tabs (Carvedilol) ..... Bid BP today: 127/78 Prior BP: / () N uclear Stress Findings: Test is considered to be negative by ECG criteria at 79% of target heart rate. [facility] (12/02/2008) C ardiac Cath: Normal coronary arteries. Mild antral hypokinesis with an EF of 50%. 2+ MR. [facility] (08/01/2006) C arotid Doppler/Duplex: Mild plaque is seen in the RCCA. Less than 50% stenosis of the ICA bilaterally. The flow in the vertebra arteries is antegrade bilaterally. [facility] (06/26/2006) E chocardiogram: TDS. Normal LV systolic function EF 65%. LVH. Dilated LV. Moderate LAE. Trace MR. Trace TR with PA pressure of 21mmHg. [facility] (06/26/2006) Kvng Valverde MD : H er updated medication list for this problem includes: Coreg 3.125 Mg Tabs (Carvedilol) ..... Bid BP today: 127/78 Prior BP: / () N uclear Stress Findings: Test is considered to be negative by ECG criteria at 79% of target heart rate. [facility] (12/02/2008) C ardiac Cath: Normal coronary arteries. Mild antral hypokinesis with an EF of 50%. 2+ MR. [facility] (08/01/2006) C arotid Doppler/Duplex: Mild plaque is seen in the RCCA. Less than 50% stenosis of the ICA bilaterally. The flow in the vertebra arteries is antegrade bilaterally. [facility] (06/26/2006) Orders: E KG ([id number]) Kvng Valverde MD Date Name HEMOGLOBIN A1c TSH, free T4, total T3 PROBNP, N TERMINAL LIPID PANEL COMPREHENSIVE METABO LIC PANEL, W/EGFR IRON AND TOTAL IRON BINDING CAPACITY FERRITIN CBC (INCLUDES DIFF/P LT) Monitor - Telemetry (Mobile Cardiac) Complete Echo Carotid Duplex Bilat eral Carotid Duplex Bilat eral MARIBEL - SL Venous Doppler Unila teral RLE Venous Doppler Unila teral LLE Venous Doppler Unila teral RLE Venous Doppler Unila teral LLE Arterial Duplex to r /o pseudoanuerysm VenaSeal Venous Doppler Bilat eral LE - Reflux RPM Enroll: BP RPM (remote patient monitoring) Complete Echo DLCO - 87007 FRC - 29436 FVC - 21597 Carotid Duplex Bilat eral CXR- PA/Lat Carotid Duplex Bilat eral Monitor - Telemetry (Mobile Cardiac) Carotid Duplex Bilat eral Stress Regadenoson Complete Echo C-REACTIVE PROTEIN ( CRP), HIGHLY SENSITIVE, CSF LIPID PANEL COMPREHENSIVE METABO LIC PANEL, W/EGFR Carotid Duplex Bilat eral LIPID PANEL VITAMIN B12/FOLATE, SERUM PANEL Carotid Duplex Bilat eral Complete Echo HEMOGLOBIN A1c CBC (INCLUDES DIFF/P LT) COMPREHENSIVE METABO LIC PANEL, W/EGFR Complete Echo Carotid Duplex Bilat eral Cardiac Cath - L/R- [facility] IRON AND TOTAL IRON BINDING CAPACITY FERRITIN CBC (INCLUDES DIFF/P LT) Complete Echo ECP - Medicare PROTHROMBIN TIME WIT H INR CBC (INCLUDES DIFF/P LT) LIPID PANEL BASIC METABOLIC PANE L W/EGFR AMYLASE LIPASE TSH, 3RD GENERATION W/REFLEX TO FT4 HEMOGLOBIN A1c LIPID PANEL COMPREHENSIVE METABO LIC PANEL W/EGFR X-Ray, Chest, PA & L ateral Complete Echo Stress Test - Adenos ine HISTORY OF PROCEDURES Procedure Date Procedure Name Provider Procedure Notes S tatus Complex e/m visit add on Kvng Valverde MD completed Complex e/m visit add on Kvng Valverde MD completed EKG Kvng Valverde MD completed Complex e/m visit add on Kvng Valverde MD completed EKG Kvng Valverde MD completed Spirometry Kvng Valverde MD completed FVC / MVV with bronchodilator - 34647 Kvng Valverde MD completed BLOOD COUNT HEMOGLOBIN Kvng Valverde MD completed FRC - 03054 Kvng Valverde MD complete d SpO2 w/o 6min walk/titration Kvng Valverde MD completed SVC - 06318 Kvng Valverde MD complete d DLCO - 20882 Kvng Valverde MD complet ed EKG Kvng Valverde MD completed EKG Kvng Valverde MD completed EKG Kvng Valvedre MD completed EKG Kvng Valverde MD completed EKG Kvng Valverde MD completed SNOMED-CT: [id number] Physical Exam, Performed: Pulse Exam of Foot Kvng Valverde MD completed SNOMED-CT: [id number] [id number] Current Medications Documented Kvng Valverde MD completed SNOMED-CT: [id number] 141534 Current Medications Documented Kvng Valverde MD completed SNOMED-CT: [id number] Current Medications Documented Kvng Valverde MD completed SNOMED-CT: 56002129 Physical Exam, Performed: Pulse Exam of Foot Kvng Valverde MD completed SNOMED-CT: 72457249 Physical Exam, Performed: Pulse Exam of Foot Kvng Valverde MD completed EKG Kvng Valverde MD completed SNOMED-CT: 906133655 811644 Current Medications Documented Kvng Valverde MD completed SNOMED-CT: 82738093 Physical Exam, Performed: Pulse Exam of Foot Kvng Valverde MD completed SNOMED-CT: 064578839 339989 Current Medications Documented Kvng Valverde MD completed SNOMED-CT: 48910205 Physical Exam, Performed: Pulse Exam of Foot Kvng Valverde MD completed SNOMED-CT: 623231237 148977 Current Medications Documented Kvng Valverde MD completed SNOMED-CT: 00422643 Physical Exam, Performed: Pulse Exam of Foot Kvng Valverde MD completed EKG Kvng Valverde MD completed SNOMED-CT: [id number] 793080 Current Medications Documented Kvng Valverde MD completed EKG Kvng Valverde MD completed EKG Mook Green MD complete d EKG Kvng Valverde MD completed EKG Kvng Valverde MD completed
--- OUTSIDE RECORDS SUMMARY | 2024-11-06 00:38 | XMS_ITS | Data Portability ---
Author Organization [place] - [facility], Main Office Address [address] [place] [address] Care Team Providers Care Oil Treater Name Role Phone ANABELLA DANIELS Primary Care Provider ANABELLA DANIELS Referring Provider [facility] Commercial Roofer HITESH COOPER Brake Repairer [facility] NEURO PSYCHOLOGY Neuropsyc hiatrist THIERNO SHELTON Orthopedic Surgeon MAGGIE VINCENT Registered Account Administrator [phone] Assessment No assessment recorded. Plan of Treatment Reminders Order Date Submit Date Provider Last Modified By Organization Details Last Modified Time Details Appointments Post-Op 15 2024 11:30A M Maggie Vincent MD Not available Not available Not available Any 15 2024 09:15A M Anabella Daniels MD Not available Not available Not available Lab None recorded. Referral None recorded. Procedures upper endoscopy procedure (EGD) (PROC) - Please call patient to schedule. 2024 025 [email or web address] Vin Navarrete MD, [address], [place], [address], 10/28/2024 08:53:18 eustachia n tube balloon dilation (PROC) 2023 024 [email or web address] In-Office Order, Internal Use Only DO Not Attach Compendium DO Not Attach Compendium, Do Not Delete/merge, [id number] 08/01/2024 14:20:00 Surgeries None recorded. Imaging None recorded. Medication Orders ondansetr on 4 mg disintegr ating tablet 2024 025 [facility]Pharmacy #[id number], [address], [place], [address], 09/11/2024 16:27:00 Patient TargetsNo targets recorded. Patient Instructions Encounter Date Encounter Id Patient Instructions Last Modified By Organization Details Last Modified Time 07/04/2024 [id number] dementia rating scale-2* Not available 07/04/2024 16:04:19 depression screening* Not available 07/04/2024 16:04:19 alcohol misuse* Not available 07/04/2024 16:04:19 Timed Up and Go test (TUG)* Not available 07/04/2024 16:04:19 multi-dimensiona l health assessment questionnaire* Not available 07/04/2024 16:04:19 advance directiv es: care instructions Not available 07/04/2024 16:04:19 advance care planning: care instructions Not available 07/04/2024 16:04:19 [place] Advance Directives Not available 07/04/2024 16:04:[address] [facility] lt Plan and Screening Recommendations Advance Directives - Do you have one? No You have indicated that you are capable of preparing your advance care directive Advance Directives - Do we have your advance directive on file in your health record? No, please bring in a copy at your earliest convenience Primary Prevention/Interven tion (prevents or decreases the chance of common diseases from occurring) Smoking Risk: Non Smoker Alcohol Misuse Screening: Negative Weight: Appropriate Overwei ght continue your current weight loss efforts try to lose 5% of your body weight try to lose 10% of your body weight try to lose 15% of your body weight Physical activity: Need more exercise/physical activity minimum of 10-20 minutes of activity that causes mild breathlessness/day Nutrition: Good Average Refer to attached handout Heart-Healthy Diet: After Your Visit Fall Risk (screened today): Low Intermediate Refer to attached handout Preventing Falls: After your Visit Vaccines Pneumococcal: Ordered Recommended today Recommended today, but you have declined No further needed Influenza: Chronic Disease Risks Stroke: Low Risk Intermediate Risk I have no recommendations Act celestino diagnosis, Continue current treatment plan Heart Attack: Low risk Intermediate Risk I have no recommendations Act celestino diagnosis, Continue current treatment plan Clogging of the Arteries: Low risk Intermediate Risk I have no recommendations Act celestino diagnosis, Continue current treatment plan Diabetes: Low Risk Intermediate Risk Active diagnosis, Continue current treatment plan Secondary Prevention/Interven tion (detects treatable diseases before they may cause symptoms, disability, or ) Breast Cancer Screening with mammogram: No screening necessary Cervical/Uterine/Ov amy Cancer Screening: Osteoporosis Screening: No screening necessary Date Screening Last Performed: 11/03/2023 Colon Cancer Screening: Colonoscopy In: Ordered Recomme nded Date Screening Last Performed Eye Disease Screening: Dementia Risk: Low Intermediate Depression Screening: Negative Positive Active diagnosis, Continue current treatment plan [email or web address] Not available 07/04/2024 13:12:11 10/10/2024 [id number] she will have th e PE tubes removed. We discussed this in the office but she reports she is unable to tolerate any pain. [email or web address] Not available 10/10/2024 14:21:31 Reason for Referral None Reported. Results Created Date Observation Date Name Description Value Unit Range Abnormal Flag Note LastModifiedBy Organization Detail LastModifiedTime 06/04/20 24 06/04/2024 US, echoc ardio gram, trans thora cic, compl ete, w/ color flow No observ ation record ed. Not Available 2023 12:27:28 07/02/20 24 07/02/2024 audio gram + tympa nogra m No observ ation record ed. [email or web address] [facility] [address], [place], [address], 07/09/2024 09:13:58 07/03/20 24 07/03/2024 audio gram + tympa nogra m No observ ation record ed. BARCODE [facility] [address], [place], [address], 07/03/2024 17:48:13 Result Notes None recorded. Problems Name Problem SNOMED Code Status Onset Date Resolution Date Notes Provider Name and Address Organization Details Recorded Time Urinary symptoms 494296419 Active 2022 Not Available [facility] 3 06:28:19 Acute urinary tract infection 755739402 Active 2022 Amanda Downing MA null, [facility] 3 14:40:48 Pain of left wrist 43174865928 9102 Active 2023 Anabella Daniels MD [address], [address], [place], [address] , [facility] 4 11:56:21 Osteoporo sis 66470063 Active 2023 Mercedes Calderon LPN null, [facility] 4 10:56:50 Pain in wrist 11050216 Active 2023 Juli Richter MA null, [facility] 4 16:34:26 Tenosynov itis of left radial styloid [id number] 488858 Active 2023 JUANI Tariq [address], [address], [place], [address] , [facility] 4 09:15:14 Urinary tract infectiou s disease 34022527 Active 2023 Juli Richter MA null, [facility] 4 16:23:21 Idiopathi c periphera l neuropath y 10721459 Active 2023 Diane Serra null, [facility] 4 09:12:18 Pain of left hand 88539529938 9103 Active 2023 JUANI Tariq [address], [address], [place], [address] , [facility] 4 09:17:05 Claustrop hobia 65869780 Active 2023 Juli Richter MA null, [facility] 4 11:48:35 Infection of skin 428409941 Active 2023 Anabella Daniels MD [address], [address], [place], [address] , [facility] 4 10:43:17 Coronary arteriosc lerosis 74386622 Active 2023 Anabella Daniels MD [address] [facility] [address], [place], [address] , [facility] 4 10:48:58 Nausea 740203723 Active 2023 Juli Richter MA null, [facility] 4 14:07:03 Sensorine ural hearing loss 02996036 Active 2023 Freeman Cooley CMA null, [facility] 4 15:23:08 Dysfuncti on of bilateral eustachia n tubes [id number] 89942 Active 2023 DIAZ Morrell [address] [facility], [facility] [address], [place], [address] , [facility] 4 15:25:15 Referred otalgia 83890595 Active 2023 Dali Deandre null, [facility] 4 11:54:53 Dysfuncti on of eustachia n tube 82021201 Active 2023 Maggie Vincent MD [address], [address] [address], [place], [address] , [facility] 4 12:58:59 Allergic rhinitis 83358063 Active 2024 Dali Deandre null, [facility] 5 11:46:51 Pain in throat 493309894 Active 2024 Dali Deandre null, [facility] 5 11:46:51 Dysfuncti on of eustachia n tube 59891285 Active 2024 Dali Deandre null, [facility] 5 11:55:41 Nausea and vomiting 94284011 Active 2024 Anabella Daniels MD [address] [address] [facility], [address], [place], [address] , [facility] 5 16:24:18 Edema of lower extremity 123224244 Completed 201701/01/2018 Not Available [facility] 3 04:53:25 Acute bronchiti s 23403821 Completed Not Available [facility] 3 04:53:25 Pain in lower limb 63081103 Completed Not Available [facility] 3 04:53:25 Injury of lower limb 625146805 Completed Not Available [facility] 3 04:53:25 External hordeolum 5996771 Completed Not Available [facility] 3 04:53:25 Acquired trigger finger 1904301 Completed Not Available [facility] 3 04:53:25 Acute sinusitis 02660943 Active 2021 Not Available [facility] 3 06:28:19 Radiother apy follow-up 721172396 Completed Not Available [facility] 3 04:53:25 Insomnia 753113656 Active Not Available [facility] 3 06:28:19 Asthma 589867328 Active Not Available [facility] 3 06:28:19 Non-alcoh olic fatty liver 945313720 Active Not Available [facility] 3 06:28:19 Steatosis of liver Completed 202002/04/2022 Not Available [facility] 3 04:53:26 Steatosis of liver Completed Not Available [facility] 3 04:53:26 Abdominal pain 46709193 Completed Not Available [facility] 3 04:53:26 Sciatica 26713548 Active Not Available [facility] 3 06:28:19 Gastroeso phageal reflux disease 166027215 Active Not Available [facility] 3 06:28:19 Chafing of skin 142664528 Completed Not Available [facility] 3 04:53:26 Headache 20553769 Completed Not Available [facility] 3 04:53:26 Dyspnea 011311468 Completed Not Available [facility] 3 04:53:26 Edema 192526057 Completed 201802/04/2022 Not Available [facility] 3 04:53:27 Adult health examinati on Active 2020 Not Available [facility] 3 06:28:19 Anemia 537126749 Active Not Available [facility] 3 06:28:19 Low back pain 401687154 Completed Not Available [facility] 3 04:53:27 Knee pain Completed Not Available [facility] 3 04:53:27 Osteopeni a 860201467 Active 2018 Not Available [facility] 3 06:28:19 Changing color of pigmented skin lesion 939649269 Active Not Available [facility] 3 06:28:19 Pain of left hip joint 26630138068 9100 Active 2022 Not Available [facility] 3 06:28:19 Vitamin D deficienc y 94300468 Active 2018 Not Available [facility] 3 06:28:19 Depressiv e disorder 42180625 Active Not Available [facility] 3 06:28:19 Heart valve disorder 603891 Active Not Available [facility] 3 06:28:19 Sinusitis 42806325 Completed Not Available [facility] 3 04:53:28 Hypertens celestino disorder 90855922 Active Not Available [facility] 3 06:28:19 Memory impairmen t 206723248 Completed Not Available [facility] 3 04:53:29 Osteoarth ritis 029922986 Active Not Available [facility] 3 06:28:19 Thalassem ia 39971548 Active Not Available [facility] 3 06:28:19 Dizziness 539821653 Completed Not Available [facility] 3 04:53:29 Dysphagia 15274732 Active 2021 Not Available [facility] 3 06:28:19 Obesity 896399290 Active Not Available [facility] 3 06:28:19 Nausea 433426935 Completed TOMMY Reina, [facility] 4 14:07:03 Diabetic periphera l neuropath y 333760892 Active Not Available [facility] 3 06:28:19 History of mastectom y 451295877 Active 2018 Not Available [facility] 3 06:28:19 Family history of malignant neoplasm of brain 067972127 Completed 201802/04/2022 Not Available [facility] 3 04:53:30 Acute urinary tract infection 208415156 Completed 202106/02/2022 TOMMY Mason, [facility] 3 14:40:48 Acute urinary tract infection 986090328 Completed TOMMY Mason, [facility] 3 14:40:48 Shoulder pain 35758513 Completed Not Available [facility] 3 04:53:31 Acute conjuncti vitis 38091937 Completed Not Available [facility] 3 04:53:31 Upper respirato ry infection 19675017 Completed Not Available [facility] 3 04:53:31 Hyperlipi demia 13493871 Active Not Available [facility] 3 06:28:19 Disorder of bursa of shoulder region 72674103 Completed Not Available [facility] 3 04:53:32 Essential hypertens ion 79689551 Active Not Available [facility] 3 06:28:19 Aortic valve stenosis 51002251 Active Not Available [facility] 3 06:28:19 Diarrhea 98824688 Completed Not Available [facility] 3 04:53:32 Carotid artery stenosis 78901115 Active 2018 Not Available [facility] 3 06:28:20 Urinary tract infectiou s disease 92501342 Completed TOMMY Reina, [facility] 4 16:23:21 Candidias is of vagina 89323661 Completed 202106/02/2022 Not Available [facility] 3 04:53:33 Diabetes mellitus 23425503 Active Not Available [facility] 3 06:28:20 Sleep apnea 23649892 Active Not Available [facility] 3 06:28:20 Urgent desire to urinate 12514059 Completed Not Available [facility] 3 04:53:34 Neck pain 82948815 Completed Not Available [facility] 3 04:53:34 Fatigue 22417620 Completed 202002/04/2022 Not Available [facility] 3 04:53:34 Chronic rhinitis 84398644 Active Not Available [facility] 3 06:28:20 Heart murmur 92016457 Active Not Available [facility] 3 06:28:[address]-assoc iated gastritis 57772159 Active Not Available [facility] 3 06:28:20 Problem Notes None recorded. Procedures Surgical History Date Name Laterality Status Provider Name and Address Organization Details Recorded Time 07/04/20 24 Medicare Wellness CPT Code, subsequent completed Marleen Recinos RN [facility] 07/04/2024 12:20:03 07/04/20 24 Advanced Care Planning completed Marleen Recinos RN [facility] 07/04/2024 12:23:37 06/10/20 24 Ortho - Cortisone Injection completed Paige Lee NP [address] [address] [facility] [facility] [address], [place], [address], [facility] 06/10/2024 11:17:39 03/18/20 22 Date of Last Colonoscopy completed Not Available [facility] 10/19/2022 04:43:18 01/19/20 19 replacement of aortic valve completed Ruth Vasquez CNA [place] [facility] 04/12/2023 15:30:13 03/17/20 17 Incise finger tendon sheath completed Not Available [facility] 10/19/2022 04:43:22 12/18/19 16 Most Recent Bone Density completed Not Available [facility] 10/19/2022 04:43:18 10/20/19 08 endoscopic retrograde pancreatography completed Ruth Pedro, [facility] [facility] [place] [facility] 04/12/2023 15:32:01 07/21/20 06 reduction of batwing arms completed Ruth Pedro, [employer] [facility] 04/12/2023 15:35:33 06/21/20 06 Breast Biopsy completed Ruth Pedro, [employer]TE[employer] [facility] 04/12/2023 15:36:40 05/21/20 06 biopsy of liver completed Ruth Pedro, [employer]TE[employer] [facility] 04/12/2023 15:34:13 03/21/20 04 cholecystectomy completed Ruth Pedro, [employer]TE[employer] [facility] 04/12/2023 15:37:06 08/21/18 79 Eye Surgery completed Ruth Pedro, [employer] [place] [facility] 04/12/2023 15:37:26 colonoscopy completed Not Available [facility] 10/19/2022 04:43:22 Cardiovascular Surgery completed Ruth Pedro, [employer] [place] [facility] [place] [facility] 04/12/2023 15:33:16 Breast Surgery completed Not Available [facility] 10/19/2022 04:43:22 TRANSPORT PILOT Surgery completed Not Available [facility] 10/19/2022 04:43:22 Carpal tunnel surgery completed Not Available [facility] 10/19/2022 04:43:22 Imaging Results Imaging Date Name Status LastModified by Organ [facility] Details LastModified Time 06/04/2024 US, echocardiogram, transthoracic, complete, w/ color flow [email or web address] [id number] Information not available 06/05/2024 12:27:28 07/02/2024 audiogram + tympanogram completed [address] [facility] [address], [place], [address], 07/09/2024 09:13:58 07/03/2024 audiogram + tympanogram completed [facility] [address], [place], [address], 07/03/2024 17:48:13 Procedure Notes None recorded. Medical Equipment None Reported. Allergies Allergen ID Allergen Name Allergen Category Reaction Reaction Severity Criticality Documentation Date Start Date Code Code System Note Provider Name and Address Organization Details Recorded Time 79431 ciproflox acin medicatio n hallucina tions nausea Not available Not available Not available 12/15/2023 2551 RxNorm Vianca Hall, JALIL [address] [facility], [place], [address] , [facility] 4 16:52:22 8390 tramadol medicatio n itching Not available Not available 10/19/2022 63138 RxNorm Not Available [facility] 3 05:04:51 8391 Levaquin medicatio n hallucina tions nausea Not available Not available Not available 10/19/2022 50783 2 RxNorm Not Available [facility] 3 05:04:51 Medications Name Sig Start Date Stop Date Status Note LastModified by Organization Details LastModified Time losartan 50 mg tablet TAKE 1 TABLET BY MOUTH EVERY DAY 2022 active Not Available Not Available Not Avai lable cyclobenz aprine 10 mg tablet Take 1 tablet 3 times a day by oral route for 10 days. active Not Available Not Available No t Available amoxicill in 500 mg capsule TAKE 1 CAPSULE BY MOUTH 3 TIMES A DAY BY ORAL ROUTE FOR 7 DAYS. active Not Available Not Available No t Available furosemid e 40 mg tablet Take 1 tablet every day by oral route. 05/29 completed Not Available Not Available Not Available atorvasta tin 40 mg tablet TAKE 1 TABLET BY MOUTH EVERY DAY 02/05 completed Not Available Not Available Not Available clotrimaz ole 10 mg tara active Not Available Not Available Not Available metformin 500 mg tablet TAKE 1 TABLET BY MOUTH IN THE MORNING AND 1 IN THE EVENING 05/27 completed Not Available Not Available Not Available hydrocodo ne 7.5 mg-ibupro fen 200 mg tablet active Not Available Not Available No t Available atorvasta tin 80 mg tablet TAKE 1 TABLET BY MOUTH EVERY DAY active Not Available Not Available No t Available prednison e 10 mg tablet PLEASE SEE ATTACHED FOR DETAILED DIRECTIO NS 07/23 completed Not Available Not Available Not Available gabapenti n 600 mg tablet TAKE 1 TABLET BY MOUTH THREE TIMES A DAY active Not Available Not Available No t Available doxycycli ne hyclate 100 mg capsule Take 1 capsule twice a day by oral route. 03/07 completed Not Available Not Available Not Available atorvasta tin 20 mg tablet TAKE 1 TABLET BY MOUTH EVERY DAY 10/01 completed Not Available Not Available Not Available albuterol sulfate 2.5 mg/3 mL (0.083 %) solution for nebulizat ion INHALE THE CONTENTS OF 1 VIAL VIA NEBULIZE R EVERY 4-6 HRS NEEDED FOR SHORTNES S OF BREATH/W HEEZING 04/12 completed Not Available Not Available Not Available trazodone 50 mg tablet active Not Available Not Available Not Available atorvasta tin 10 mg tablet Take 1 tablet every day by oral route. 2014 active Not Available Not Available Not Avai lable azithromy annie 250 mg tablet TAKE 1 TABLET BY MOUTH EVERY DAY FOR 5 DAYS 06/06 completed Not Available Not Available Not Available ibuprofen 800 mg tablet TAKE 1 TABLET BY MOUTH 3 TIMES A DAY active Not Available Not Available No t Available fluconazo le 150 mg tablet Take 1 tablet every day by oral route as directed for 1 day. 09/05 completed Not Available Not Available Not Available benzonata te 200 mg capsule TAKE 1 CAPSULE BY MOUTH 3 TIMES A DAY NEEDED FOR COUGH 09/05 completed Not Available Not Available Not Available hydrocodo ne 5 mg-acetam inophen 325 mg tablet 07/04 completed Not Available Not Available Not Available meloxicam 15 mg tablet Take 1 tablet every day by oral route for 30 days. 07/08 completed Not Available Not Available Not Available bupivacai ne HCl 0.5 % (5 mg/mL) injection solution in office 06/17 completed Not Available Not Available Not Available prednison e 20 mg tablet Take 1 tablet twice a day by oral route for 5 days. 07/23 completed Not Available Not Available Not Available alendrona te 70 mg tablet Take 1 tablet every week by oral route. active Not Available Not Available No t Available Advair Diskus 100 mcg-50 mcg/dose powder for inhalatio n active Not Available Not Available Not Available topiramat e 25 mg tablet TAKE 1 TABLET BY MOUTH EVERYDAY AT BEDTIME active Not Available Not Available No t Available potassium chloride ER 10 mEq tablet,ex tended release Take 1 tablet every day by oral route for 30 days. active made pt. sick Not Available Not Available Not Available acetamino phen 300 mg-codein e 30 mg tablet active Not Available Not Available Not Available clopidogr el 75 mg tablet TAKE 1 TABLET BY MOUTH EVERY DAY active Not Available Not Available No t Available ciproflox acin 500 mg tablet Take 1 tablet every 12 hours by oral route for 5 days. 03/07 completed Not Available Not Available Not Available sulfameth oxazole 800 mg-trimet hoprim 160 mg tablet TAKE 1 TABLET BY MOUTH TWICE A DAY FOR 5 DAYS 04/12 completed Not Available Not Available Not Available hydrocodo ne 10 mg-acetam inophen 325 mg tablet active Not Available Not Available Not Available aspirin 81 mg tablet,de layed release Take 1 tablet every day by oral route. 2014 active Not Available Not Available Not Avai lable tramadol 50 mg tablet TAKE 1 TABLET ORAL ROUTE EVERY 8 HOURS NEEDED active Not Available Not Available No t Available triamcino lone acetonide 0.1 % topical cream APPLY A THIN LAYER TO THE AFFECTED AREA(S) BY TOPICAL ROUTE 2 TIMES PER DAY active Not Available Not Available No t Available TobraDex 0.3 %-0.1 % eye ointment APPLY A SMALL AMOUNT ON EYELID TWICE A DAY NEEDED 01/05 completed Not Available Not Available Not Available amoxicill in 500 mg tablet TAKE 1 TABLET BY MOUTH THREE TIMES A DAY FOR 7 DAYS active Not Available Not Available No t Available theophyll ine ER 300 mg tablet,ex tended release,1 2 hr 05/29 completed Not Available Not Available Not Available pantopraz ole 20 mg tablet,de layed release TAKE 1 TABLET BY MOUTH TWICE A DAY 08/16 completed Not Available Not Available Not Available prednison e 10 mg tablets in a dose pack Take 1 tab by mouth, 3 times a day for 3 daysTake 1 tab by mouth 2 times a day for 2 daysTake 1 tab by mouth once a day for 1 day 06/17 completed Not Available Not Available Not Available Zofran 4 mg tablet Take 1 tablet 3 times a day by oral route as needed. 2023 active per 05/28/24 patient case / ds Not Available Not Available Not Available alprazola m 0.5 mg tablet TAKE 1 TABLET BY MOUTH FOUR TIMES A DAY active tapering off Not Available Not Available Not Available amoxicill in 875 mg tablet Take 1 tablet every 12 hours by oral route with meals for 10 days. 09/22 completed Not Available Not Available Not Available alprazola m 0.25 mg tablet Take 1 tablet twice a day by oral route. 05/29 completed Not Available Not Available Not Available prednisol one acetate 1 % eye drops,jean pension active Not Available Not Available Not Available Vitamin C 1,000 mg tablet Take 1 tablet every day by oral route. active Not Available Not Available No t Available desonide 0.05 % topical ointment 04/12 completed Not Available Not Available Not Available hydrocort isone-otf tic acid 1 %-2 % ear drops INSTILL 2 DROPS INTO AFFECTED EAR(S) BY OTIC ROUTE 4 TIMES PER DAY X 7 DAYS active Not Available Not Available No t Available trazodone 100 mg tablet 10/27 completed Not Available Not Available Not Available Ceram [id number] Ultra Test strips USE TO TEST 3 TIMES A DAY 04/12 completed Not Available Not Available Not Available Kenalog 10 mg/mL suspensio n for injection in office 06/17 completed [facility]: [phone] Not Available Not Available Not Available lorazepam 2 mg tablet TAKE 2 TABLETS BY MOUTH 2 HOURS PRIOR TO DENTAL APPOINTM ENT 04/12 completed Not Available Not Available Not Available cephalexi n 500 mg capsule TAKE 1 CAPSULE BY MOUTH THREE TIMES A DAY 01/05 completed Not Available Not Available Not Available pantopraz ole 40 mg tablet,de layed release TAKE 1 TABLET BY MOUTH EVERY DAY 2024 active Not Available Not Available Not Avai lable ferrous sulfate 325 mg (65 mg iron) tablet TAKE 1 TABLET BY MOUTH EVERY OTHER DAY active Not Available Not Available No t Available metformin 1,000 mg tablet TAKE 1 TABLET BY MOUTH TWICE A DAY 2024 active Not Available Not Available Not Avai lable tobramyci n 0.3 % eye drops 04/04 completed Not Available Not Available Not Available clotrimaz ole-betam ethasone 1 %-0.05 % topical cream 01/23 completed Not Available Not Available Not Available glimepiri de 4 mg tablet active Not Available Not Available Not Available Tobrex 0.3 % eye ointment APPLY A SMALL AMOUNT (1/2 INCH) TO THE LOWER LID OF THE AFFECTED EYE(S) BY OPHTHALM IC ROUTE 2 TIMES PER DAY active Not Available Not Available No t Available losartan 25 mg tablet TAKE 1 TABLET BY MOUTH EVERY DAY active Not Available Not Available No t Available Polytrim 10,000 unit-1 mg/mL eye drops Instill 1 drop every 6 hours by ophthalm ic route for 10 days. 08/03 completed Not Available Not Available Not Available gabapenti n 300 mg capsule TAKE ONE CAPSULE BY MOUTH THREE TIMES DAILY 10/06 completed Not Available Not Available Not Available omeprazol e 20 mg capsule,d elayed release Take 1 capsule every day by oral route for 30 days. 07/08 completed Not Available Not Available Not Available gentamici n 0.1 % topical cream 01/01 completed Not Available Not Available Not Available diclofena c sodium 75 mg tablet,de layed release 02/19 completed Not Available Not Available Not Available folic acid 1 mg tablet Take 1 tablet every day by oral route. active Not Available Not Available No t Available monteluka st 10 mg tablet TAKE 1 TABLET BY MOUTH AT BEDTIME active Not Available Not Available No t Available hydrocodo ne 5 mg-acetam inophen 500 mg tablet active Not Available Not Available Not Available mupirocin 2 % topical ointment APPLY A THIN LAYER (0.5-1 GRAMS) ONTO THE AFFECTED AREA(S) OF THE SKIN ONCE DAILY 04/12 completed Not Available Not Available Not Available zolpidem 5 mg tablet Take 0.5 tablets every day by oral route at bedtime. 09/[address] Oliver Not Available Not Available Not Available furosemid e 20 mg tablet TAKE 1 TABLET BY MOUTH EVERY DAY active Not Available Not Available No t Available ergocalci ferol (vitamin D2) 1,250 mcg (50,000 unit) capsule QC BY MOUTH FOR 90 DAYS active Not Available Not Available No t Available azelastin e 137 mcg (0.1 %) nasal spray 04/12 completed Not Available Not Available Not Available zolpidem 10 mg tablet TAKE 1 TABLET BY MOUTH EVERYDAY AT BEDTIME active Not Available Not Available No t Available methylpre dnisolone 4 mg tablets in a dose pack TAKE 6 TABLETS ON DAY 1 DIRECTED ON PACKAGE AND DECREASE BY 1 TAB EACH DAY FOR A TOTAL OF 6 DAYS 06/06 completed Not Available Not Available Not Available propranol ol 20 mg tablet active Not Available Not Available Not Available Cipro 250 mg tablet Take 1 tablet twice a day by oral route for 5 days. 01/03 completed Not Available Not Available Not Available hydrocort isone 1 %-iodoqui nol 1 % topical cream active Not Available Not Available Not Available ondansetr on 4 mg disintegr ating tablet Take 1 tablet TID prn active Not Available Not Available No t Available fluticaso ne propionat e 50 mcg/actua tion nasal spray,jean pension INSTILL 2 SPRAYS BY INTRANAS AL ROUTE EVERY DAY active Not Available Not Available No t Available clotrimaz ole 1 % topical cream 10/01 completed Not Available Not Available Not Available lisinopri l 2.5 mg tablet 07/08 completed Not Available Not Available Not Available doxycycli ne hyclate 100 mg tablet active Not Available Not Available Not Available dicyclomi ne 10 mg capsule Take 1 capsule 3 times a day by oral route before meals for 20 days. 05/27 completed Not Available Not Available Not Available lamotrigi ne 100 mg tablet TAKE 1 TABLET BY MOUTH EVERYDAY AT BEDTIME active Not Available Not Available No t Available naproxen 500 mg tablet Take 1 tablet twice a day by oral route. 01/15 completed Not Available Not Available Not Available amoxicill in 875 mg-potass ium clavulana te 125 mg tablet TAKE 1 TABLET BY MOUTH EVERY 12 HOURS 01/23 completed Not Available Not Available Not Available amoxicill in 500 mg-potass ium clavulana te 125 mg tablet 09/05 completed Not Available Not Available Not Available Ventolin HFA 90 mcg/actua tion aerosol inhaler 04/12 completed Not Available Not Available Not Available neomycin 3.5 mg/g-poly myxin B 10,000 unit/g-de xameth 0.1 % eye oint APPLY 1 A SMALL AMOUNT ON EYELID TWICE A DAY active Not Available Not Available No t Available ezetimibe 10 mg tablet Take 1 tablet every day by oral route. active Not Available Not Available No t Available cyclobenz aprine 5 mg tablet Take 1 tablet 3 times a day by oral route. 04/12 completed Not Available Not Available Not Available Vigamox 0.5 % eye drops INSTILL 1 DROP INTO AFFECTED EYE(S) BY OPHTHALM IC ROUTE 3 TIMES PER DAY active Not Available Not Available No t Available rosuvasta tin 40 mg tablet TAKE 1 TABLET BY MOUTH EVERY DAY 2022 active Not Available Not Available Not Avai lable Alcohol Prep Pads active Not Available Not Available No t Available Prevpac 500 mg-500 mg-30 mg oral pack active Not Available Not Available No t Available nitrofura ntoin monohydra te/macroc rystals 100 mg capsule TAKE 1 CAPSULE BY MOUTH TWICE A DAY FOR 5 DAYS 06/17 completed Not Available Not Available Not Available duloxetin e 20 mg capsule,d elayed release TAKE 1 CAPSULE BY MOUTH EVERY MORNING 04/12 completed Not Available Not Available Not Available duloxetin e 60 mg capsule,d elayed release Take 1 capsule every day by oral route for 90 days. 09/22 completed Not Available Not Available Not Available OneTouch UltraSoft Lancets USE TO TEST THREE TIMES DAILY (DX E11.65) 04/12 completed Not Available Not Available Not Available fenofibra te 160 mg tablet Take 1 tablet every day by oral route for 30 days. 07/08 completed Not Available Not Available Not Available pregabali n 50 mg capsule TAKE 1 CAPSULE BY MOUTH THREE TIMES A DAY 04/12 completed Not Available Not Available Not Available Rozerem 8 mg tablet 10/27 completed Not Available Not Available Not Available Vitamin D3 25mcg once a day active Not Available Not Available No t Available OneTouch Ultra2 Meter kit USE METER TO CHECK BLOOD SUGAR 4 TIMES DAILY 01/09 completed Not Available Not Available Not Available BD Ultra-Fin e Short Pen Needle 31 gauge x 5/16 USE 3 X DAILY FOR INSULIN active Not Available Not Available No t Available BD Ultra-Fin e Original Pen Needle 29 gauge x 1/2 USE DAILY DIRECTED 10/27 completed Not Available Not Available Not Available Symbicort 160 mcg-4.5 mcg/actua tion HFA aerosol inhaler INHALE 2 PUFFS BY MOUTH EVERY 12 HOURS -RINSE WITH WATER AND SPIT AFTER USING active Not Available Not Available No t Available peg 3350-elec trolytes 236 gram-22.7 4 gram-6.74 gram-5.86 gram solution TAKE DIRECTED active Not Available Not Available No t Available Humalog KwikPen (U-100) Insulin 100 unit/mL subcutane ous Inject 10 units twice a day by subcutan eous route as needed for 30 days. 02/19 completed Not Available Not Available Not Available vitamin E (dl, acetate) 180 mg (400 unit) capsule Take 1 capsule every day by oral route. active Not Available Not Available No t Available Suprep Bowel Prep Kit 17.5 gram-3.13 gram-1.6 gram oral solution active Not Available Not Available Not Available Viibryd 40 mg tablet active Not Available Not Available Not Available Lotemax 0.5 % eye gel drops INSTILL 1 DROP IN SURGICAL EYE 3 TIMES A DAY TO BEGIN AFTER SURGERY 10/27 completed Not Available Not Available Not Available Prolensa 0.07 % eye drops 04/04 completed Not Available Not Available Not Available potassium chloride ER 20 mEq tablet,ex tended release 05/29 completed Not Available Not Available Not Available Trulicity 1.5 mg/0.5 mL subcutane ous pen injector Inject by subcutan eous route. active Not Available Not Available No t Available Trulicity 0.75 mg/0.5 mL subcutane ous pen injector INJECT THE CONTENTS OF 1 PEN UNDER THE SKIN ONCE WEEKLY 04/12 completed Not Available Not Available Not Available Belsomra 10 mg tablet 10/27 completed Not Available Not Available Not Available Toujeo SoloStar U-300 Insulin 24 units every night active Not Available Not Available No t Available Basaglar KwikPen U-100 Insulin 100 unit/mL (3 mL) subcutane ous Inject 40 units every day by subcutan eous route. 2023 active Not Available Not Available Not Avai lable Basaglar KwikPen U-100 Insulin 40u in the evening 08/27 completed Not Available Not Available Not Available OneTouch Ultra Blue Test Strip USE TO TEST 3 TIMES A DAY 08/16 completed Not Available Not Available Not Available Toujeo Max U-300 SoloStar 300 unit/mL (3 mL) subcutane ous insulin pen INJECT 36 UNITS UNDER THE SKIN NIGHTLY 01/05 completed Not Available Not Available Not Available OneTouch Ultra2 Meter USE TO TEST BLOOD SUGARS 3 X DAILY active Not Available Not Available No t Available Fluzone Quad (PF) 60 mcg (15 mcg x 4)/0.5 mL IM syringe PHARMACY ADMINIST ERED 05/27 completed Not Available Not Available Not Available QuickVue At-Home COVID-19 Test kit USE DIRECTED 04/12 completed Not Available Not Available Not Available OneTouch UltraSoft 2 Lancet 30 gauge use to test BS TID and PRN 2024 active Not Available Not Available Not Avai lable Vitals Date Recorded Body height Body mass index (BMI) Body weight Body temperature Heart rate Oxygen saturation Oxygen saturation in Arterial blood by Pulse oximetry Systolic blood pressure Diastolic blood pressure Provider Name and Address Organization Details Last Updated DateTime 157.48 cm 40.8 kg/m2 025584. 1 g 96.7 [degF] 86 /min 98 % 98 % 120 mm[Hg] 64 mm[Hg] EDE [place] Epyon [facility] 09:58:48 Date Recorded Body height Body mass index (BMI) Body weight Body temperature Provider Name and Address Organization Details Last Updated DateTime 07/24/2024 157.48 cm 40.4 kg/m2 746456.91 g 97.8 [degF] Effie Mcpherson RN [facility] 07/24/2024 12:29:06 Date Recorded Body height Body mass index (BMI) Body weight Body temperature Provider Name and Address Organization Details Last Updated DateTime 08/27/2024 157.48 cm 38.5 kg/m2 17944.83 g 97.7 [degF] Effie Mcpherson RN [facility] 08/27/2024 10:54:41 Date Recorded Body height Body mass index (BMI) Body weight Body temperature Heart rate Oxygen saturation Oxygen saturation in Arterial blood by Pulse oximetry Systolic blood pressure Diastolic blood pressure Provider Name and Address Organization Details Last Updated DateTime 157.48 cm 37.9 kg/m2 04935.6 2 g 97.2 [degF] 77 /min 98 % 98 % 130 mm[Hg] 58 mm[Hg] Aye Huertapatrice keo EDE [facility] 16:00:19 Date Recorded Body height Body mass index (BMI) Body weight Body temperature Provider Name and Address Organization Details Last Updated DateTime 10/10/2024 157.48 cm 36.2 kg/m2 82029.29 g 97.7 [degF] Effie Mcpherson RN [facility] 10/10/2024 14:05:17 Social History Question Answer Notes LastModified by Organization Details LastModified Time Tobacco Smoking Status Never Smoker Not Available [facility] 10/19/2022 04:35:32 Do You Have An Advance Directive? No [email or web address] Information not available 07/04/2024 What Is Your Level Of Alcohol Consumption? None [id number].030 [id number] Information not available 10/19/2022 Are You Blind Or Do You Have Difficulty Seeing? Yes Glasses, Eye Exams At [place] MIGRATION.030 [id number] Information not available 10/19/2022 Is Blood Transfusion Acceptable In An Emergency? Yes [email or web address] Information not available 07/04/2024 What Is Your Level Of Caffeine Consumption? Occasional MIGRATION.030 [id number] Information not available 10/19/2022 How Much Tobacco Do You Chew? None MIGRATION.030 [id number] Information not available 10/19/2022 Are You Currently Employed? No [email or web address] Information not available 07/04/2024 Are You Deaf Or Do You Have Serious Difficulty Hearing? Yes [email or web address] Information not available 07/04/2024 What Type Of Diet Are You Following? REGULAR [email or web address].030 [id number] Information not available 10/19/2022 Which Illicit Or Recreational Drugs Have You Used? None MIGRATION.030 [id number] Information not available 10/19/2022 What Is The Highest Grade Or Level Of School You Have Completed Or The Highest Degree You Have Received? [id number] [email or web address] Information not available 07/04/2024 What Is Your Occupation? Retired MIGRATION.030 [id number] Information not available 10/19/2022 How Many Days Of Moderate To Strenuous Exercise, Like A Brisk Walk, Did You Do In The Last 7 Days? 0 [email or web address] Information not available 07/04/2024 Have There Been Any Changes To Your Family Or Social Situation? Yes 2 Grandchildren Moved In With Her In 2023 [email or web address] Information not available 07/04/2024 What Is The Fluoride Status Of Your Home? Fluoridated [id number].0301 [id number] Information not available 10/19/2022 Are There Any Guns Present In Your Home? No MIGRATION.0301 [id number] Information not available 10/19/2022 Do You Use Insect Repellent Routinely? No [email or web address] Information not available 07/04/2024 Where Do You Live? [place] MIGRATION.0301 [id number] Information not available 10/19/2022 Are You Following A Low Salt Diet? No [email or web address] Information not available 07/04/2024 Do You Have A Medical Power Of Chute Loader? No [email or web address] Information not available 07/04/2024 What Was The Date Of Your Most Recent Tobacco Screening? 07/04/2024 [email or web address] Information not available 07/04/2024 How Many Children Do You Have? 0 [email or web address] Information not available 07/04/2024 Do You Have Any Pets? Yes [email or web address] Information not available 07/04/2024 What Is Your Relationship Status? Single [email or web address] Information not available 07/04/2024 Do You Use Your Seat Belt Or Car Seat Routinely? Yes [email or web address] Information not available 07/04/2024 Are You Sexually Active? No [email or web address] Information not available 07/04/2024 Do You Have Smoke And Carbon Monoxide Detectors In Your Home? Yes [id number].[id number] [id number] Information not available 10/19/2022 Are You Passively Exposed To Smoke? No [email or web address] Information not available 07/04/2024 Are There Any Smokers In Your House? No [email or web address] Information not available 07/04/2024 What Types Of Sporting Activities Do You Participate In? None [email or web address] Information not available 07/04/2024 Do You Feel Stressed (tense, Restless, Nervous, Or Anxious, Or Unable To Sleep At Night)? [id number] MIGRATION.0301 [id number] Information not available 10/19/2022 Do You Use Any Illicit Or Recreational Drugs? No [email or web address] Information not available 07/04/2024 Do You Use Sunscreen Routinely? No MIGRATION.0301 [id number] Information not available 10/19/2022 Has Tobacco Cessation Counseling Been Provided? No [email or web address] Information not available 07/04/2024 Have You Recently Traveled Abroad? No [email or web address] Information not available 07/04/2024 Do You Have Any Dietary Restrictions? Yes Should Be On Low Sugar/carb Diet [email or web address] Information not available 07/04/2024 Sex: Female Functional Status Question Answer Note LastModified by Organizat ion Details LastModified Time Do you have difficulty walking or climbing stairs? No [id number] Information not available 10/19/2022 Do you have transportation difficulties? No [email or web address] Information not available 07/04/2024 Are you able to walk? YESWOREST [email or web address] Information not available 07/04/2024 Do you have difficulty doing errands alone? No [id number] Information not available 10/19/2022 Are you able to care for yourself? Yes [email or web address] Information n ot available 07/04/2024 Do you have difficulty dressing or bathing? No [id number] [id number] Information not available 10/19/2022 What is your exercise level? None [email or web address] Information not available 07/04/2024 Mental Status Question Answer Note LastModified by Organization D etails LastModified Time Do you have difficulty concentrating, remembering or making decisions? Yes [email or web address] Information no t available 07/04/2024 Family History Relationship Description Onset Age of this Age Resolved Age Notes LastModified by Organization Details LastModified Time Mother Malignant tumor of lung [id number].100 [id number] Not available 10/19/2022 04:43:24 Mother Malignant tumor of breast MIGRATION.424 [id number] Not available 10/19/2022 04:43:25 Father Heart disease MIGRATION.694 [id number] Not available 10/19/2022 04:43:25 Sister Complication of anesthesia [email or web address] Not available 04/12 15:27:27 Mother Family history of malignant neoplasm [email or web address] Not available 2022 15:27:45 Medical History Condition Response ARTHRITIS Y USE OF BLOOD THINNERS Y BLOOD DISEASES Y ANEMIA/BLOOD DISORDER Y DIABETES, TYPE Y HYPERTENSION Y Gynecological History Statement/Question Response Date of Last Pap Date of Last Mammogram Date of Last Colonoscopy 03/18/2022 Most Recent Bone Density 12/18/2015 Obstetrics History GPAL:G 0 P 0 0 0 0 Immunizations Vaccine Type Date Status Note Provider Nam e and Address Organization Details Recorded Time Influenza, split virus, trivalent, PF 3 completed Francheska Hinojosa CMA null, [facility] 10/24/2023 10:56:43 Influenza, high-dose, quadrivalent, PF 1 completed Not Available [facility] 04/06/2023 03:45:08 SARS-COV-2 (COVID-19) vaccine, UNSPECIFIED 1 completed Francheska Hinojosa CMA null, [facility] 10/24/2023 10:56:43 SARS-COV-2 (COVID-19) vaccine, UNSPECIFIED 1 completed NIRMAL Allen, [facility] 10/24/2023 10:56:43 SARS-COV-2 (COVID-19) vaccine, UNSPECIFIED 1 completed Not Available [facility] 04/06/2023 03:45:08 Influenza, split virus, quadrivalent, preservative 0 completed Not Available [facility] 04/06/2023 03:45:08 Tdap 1 completed Not Available [facility] 04/06/2023 03:45:08 pneumococcal polysaccharide PPV23 1 completed Not Available [facility] 04/06/2023 03:45:08 pneumococcal polysaccharide PPV23 5 completed Not Available [facility] 04/06/2023 03:45:08 Influenza, split virus, quadrivalent, PF 2 completed Not Available [facility] 04/06/2023 03:45:08 Influenza, split virus, quadrivalent, PF 9 completed Not Available [facility] 04/06/2023 03:45:08 Td (adult), 5 Lf tetanus toxoid, preservative free, adsorbed 9 completed Not Available [facility] 04/06/2023 03:45:08 Influenza, split virus, quadrivalent, PF 8 completed Francheska Hinojosa CMA null, [facility] 10/24/2023 10:56:43 Pneumococcal conjugate PCV 13 6 completed Not Available [facility] 04/06/2023 03:45:08 Influenza, split virus, quadrivalent, preservative 6 completed Not Available [facility] 04/06/2023 03:45:08 Influenza, split virus, quadrivalent, preservative 5 completed Not Available [facility] 04/06/2023 03:45:08 Influenza, split virus, trivalent, preservative 4 completed Francheska Hinojosa [facility] [place] [facility] 10/24/2023 10:56:43 Influenza, split virus, quadrivalent, preservative 7 completed Not Available [facility] 04/06/2023 03:45:08 pneumococcal polysaccharide PPV23 4 completed Anabella Daniels MD [address] [place] [address], [place], [address], [facility] 03/04/2024 13:27:44 Past Encounters Encounter ID Performer Location Encounter Start Date Encounter Closed Date Diagnosis/Indication Diagnosis SNOMED-CT Code Diagnosis ICD10 Code Diagnosis Note [id number] [facility] [address] [place] [address] 02/05/2021 00:00:00 02/05/2021 13:17:42 [id number] [facility] [place] [address] [place] [address] 7 06/04/2021 00:00:00 06/04/2021 10:30:21 [id number] [facility] [address] [place] [address] 08/16/2021 00:00:00 08/16/2021 14:35:44 [id number] [facility] [address] [address] 10/06/2021 00:00:00 10/06/2021 11:25:17 [id number] [facility] [address] [address] 02/07/2022 00:00:00 02/07/2022 11:27:43 [id number] [facility] [address] [place] [address] 06/06/2022 00:00:00 06/06/2022 13:04:24 [id number] [facility] [address] [place] [address] 08/24/2022 00:00:00 08/24/2022 15:12:50 [id number] [facility] [address] [place] [address] 09/05/2022 00:00:00 09/05/2022 11:28:14 [id number] Anabella Daniels MD [facility] [address] [place] [address] 01/05/2023 11:54:05 01/05/2023 12:51:34 Diabetes mellitus 65129803 E13.42 under control, gets eye exam, seeing endo Diabetic p eripheral neuropathy 715928738 E11.40 not on gabapentin any more due to side effects Asthma 138925516 J45.90 9 under control Essential hypertension 56347997 I10 under control Carotid ar kecia stenosis 33656127 I65.29 on asa, dopplers 11/09 Dysphagia 90060189 R13.1 0 not getting worse Depressive disorder 3548 9007 F32.9 under control, seeing psych Gastroesop hageal reflux disease 794274658 K21.9 under control with meds Heart murmur 25111909 R0 1.1 gets echo Insomnia 926078060 G47.0 0 better with meds Obesity 969520027 E66.9 advised to lose Osteoarthritis 476262189 M19.90 otc Sleep apnea 77081627 G47 .30 on cpap Vitamin D deficiency 347 64050 E55.9 otc Chronic rhinitis 8994948 6 J31.0 on montelukas t Adult heal th examination 899138579 Z00.00 Mammogram- both breast removedDex a 2016, wants to wait due covidColon oscopy 2016PCV 13 [id number] 2COV ID- 09/22/20, 11/09/20, 05/06/21 Postmenopausal state 764 83038 Z78.0 Urinary symptoms 4145598 08 R39.9 [id number] JUANI Kwon [facility] [address] [place] [address] 04/12/2023 14:58:45 04/12/2023 16:02:59 Pain of left hip joint [id number] 67277 M25.517 [id number] Anabella Daniels MD S[facility] [address] [place] [address] 05/16/2023 10:31:13 05/16/2023 11:16:18 Diabetes mellitus 50624607 E13.42 under control, gets eye exam, seeing endo Diabetic p eripheral neuropathy 388857531 E11.40 not on gabapentin any more due to side effects Asthma 204197593 J45.90 9 advised to use symbicort daily Essential hypertension 64447353 I10 under control Carotid ar kecia stenosis 90340511 I65.29 on asa, gets dopplers at cardiology Dysphagia 80523683 R13.1 0 stable Depressive disorder 3548 9007 F32.9 under control, seeing psych Gastroesop hageal reflux disease 264801386 K21.9 under control with meds Heart murmur 21321696 R0 1.1 gets echo Insomnia 564243518 G47.0 0 better with meds Obesity 586972302 E66.9 advised to lose Osteoarthritis 916418169 M19.90 otc Sleep apnea 30782437 G47 .30 on cpap Vitamin D deficiency 347 31115 E55.9 otc Chronic rhinitis 6855108 6 J31.0 on montelukas t Adult heal th examination 278650435 Z00.00 Mammogram- both breast removedDex a 2016, wants to waitColono scopy 2016PCV 13 [id number] 2004FLUOV ID- 09/22/20, 11/09/20, 05/06/21 Postmenopausal state 764 60402 Z78.0 [id number] Anabella Daniels MD [facility] [address] [place] [address] 10/24/2023 10:44:10 10/24/2023 12:01:20 Diabetes mellitus 57885765 E13.42 under control, gets eye exam, Diabetic p eripheral neuropathy 288191759 E11.40 not on gabapentin any more due to side effects Asthma 948576005 J45.90 9 advised to use symbicort daily Essential hypertension 59542322 I10 under control Carotid ar kecia stenosis 07613207 I65.29 on asa, gets dopplers at cardiology Dysphagia 74007013 R13.1 0 stable Depressive disorder 3548 9007 F32.9 under control, seeing psych Gastroesop hageal reflux disease 727634267 K21.9 under control with meds Insomnia 896769020 G47.0 0 better with meds Obesity 718927699 E66.9 advised to lose Osteoarthritis 965961866 M19.90 otc Sleep apnea 61454861 G47 .30 on cpap Vitamin D deficiency 347 26552 E55.9 otc Chronic rhinitis 9106209 6 J31.0 on montelukas t Adult heal th examination 182800960 Z00.00 Mammogram- both breast removedDex a 2016, wants to waitColono scopy 2016PCV 13 [id number] OV ID- 09/22/20, 11/09/20, 05/06/21 Postmenopausal state 764 00492 Z78.0 Pain of left wrist 73846 13043 86871 M25.532 use wrist support [id number] JUANI Tariq [facility] [place] [address] [place] [address] 11/30/2023 08:49:25 11/30/2023 09:12:53 Pain of left wrist 2594449895 58769 M25.532 Tenosynovi tis of left radial styloid 5257158366 0056774 M65.4 [id number] JUANI Tariq [facility] [place] [address] [place] [address] 12/28/2023 08:57:50 12/28/2023 09:31:17 Tenosynovitis of left radial styloid 5417372851 9773397 M65.4 Pain of left hand 986888 4236 67208 M79.574 [id number] Anabella Daniels MD [facility] [address] [place] [address] 03/04/2024 09:47:48 03/04/2024 11:12:54 Diabetes mellitus 67181667 E13.42 under control, Diabetic p eripheral neuropathy 822299876 E11.40 not on gabapentin any more due to side effects Asthma 601223780 J45.90 9 alb inhaler Essential hypertension 16414686 I10 under control Carotid ar kecia stenosis 89371359 I65.29 on asa, gets dopplers at cardiology Dysphagia 85311929 R13.1 0 no more symptoms Depressive disorder 3548 9007 F32.9 under control, seeing psych Gastroesop hageal reflux disease 364215187 K21.9 under control with meds Insomnia 979630725 G47.0 0 better with meds Obesity 163135888 E66.9 advised to lose Osteoarthritis 684664501 M19.90 otc Sleep apnea 88826601 G47 .30 on cpap Vitamin D deficiency 347 14355 E55.9 otc Chronic rhinitis 7683071 6 J31.0 on montelukas t Adult heal th examination 666137994 Z00.00 Mammogram- both breast removedDex a 11/11Colono scopy 2016PCV 13 [id number] 2004,FLU- OV ID- 09/22/20, 11/09/20, 05/06/21 Anemia 323226995 D64.9 Aortic valve stenosis 60 462788 I35.0 s/p valve replacemen t Hyperlipidemia 49252918 E78.5 Non-alcoho lic fatty liver 218523819 K76.0 advised to lose weight Osteopenia 107491491 M85 .80 on otc Infection of skin 459354 000 L08.9 Coronary arteriosclerosis 64252243 I25.10 s/p CABG Administra tion of pneumococcal vaccine 53620336 Z23 [id number] DIAZ Morrell [facility] [address] [place] [address] 06/06/2024 14:47:52 06/06/2024 15:33:04 Dysfunction of bilateral eustachian tubes 7755184865 216632 H69.93 Sensorineu ral hearing loss 16877889 H90.5 [id number] Paige Lee NP [facility] [address] [place] [address] 06/10/2024 10:19:09 06/10/2024 10:41:38 Tenosynovitis of left radial styloid 8065041257 7735103 M65.4 [id number] Maggie Vincent MD [facility] [place] [address] [place] [address] 06/20/2024 14:38:43 06/20/2024 15:26:57 Dysfunction of bilateral eustachian tubes 4387083020 683495 H69.93 [id number] Anabella Daniels MD [facility] Internal Med [facility] [address] [facility] [place] [address] 07/04/2024 09:46:50 07/04/2024 10:59:22 Diabetes mellitus 31688013 E13.42 under control, Diabetic p eripheral neuropathy 807270110 E11.40 not on gabapentin any more due to side effects Asthma 214642173 J45.90 9 alb inhaler prn, under control Essential hypertension 98909963 I10 under control Carotid ar kecia stenosis 25937774 I65.29 on asa, gets dopplers at cardiology Dysphagia 16782900 R13.1 0 no more symptoms Depressive disorder 3548 9007 F32.9 under control, seeing psych Gastroesop hageal reflux disease 537403467 K21.9 under control with meds Insomnia 837371890 G47.0 0 better with meds Obesity 788550100 E66.9 advised to lose Osteoarthritis 522181125 M19.90 otc Sleep apnea 73762437 G47 .30 on cpap, compliant Vitamin D deficiency 347 99207 E55.9 otc Chronic rhinitis 7277577 6 J31.0 on montelukas t Adult heal th examination 021465173 Z00.00 Mammogram- both breast removedDex a 11/11Colono scopy 2016PCV 13 [id number] 2004,FLU- 3COV ID- 09/22/20, 11/09/20, 05/06/21 Anemia 926613013 D64.9 stable Aortic valve stenosis 60 013425 I35.0 s/p valve replacemen t Hyperlipidemia 53799617 E78.5 stable Non-alcoho lic fatty liver 006259472 K76.0 advised to lose weight Osteopenia 382149077 M85 .80 on otc Coronary arteriosclerosis 97538310 I25.10 s/p CABG Screening for disorder 218811349 Z13.9 [id number] Maggie Vincent MD [facility] [place] [address] [place] [address] 07/24/2024 12:04:01 08/15/2024 10:05:16 Dysfunction of bilateral eustachian tubes 1698417876 383875 H69.93 Dysfunctio n of eustachian tube 82485052 H69.93 [id number] DIAZ Morrell [facility] [place] [address] [place] [address] 08/27/2024 10:45:03 08/27/2024 11:18:24 Postoperative visit 563139951 Z48.89 08/19/2024 postoperat celestino from a bilateral myringotom y with bilateral Eustachian tube balloon dilation. Advised use of Flonase nasal spray 1-2 squirts per nostril daily. She notes that she does have Flonase at home. Follow-up as needed. [id number] Marcelina Ye [facility] [address] [place] [address] 09/11/2024 15:51:00 09/11/2024 16:29:59 Nausea and vomiting 82911519 R11.2 needs EGD [id number] Maggie Vincent MD [facility] [place] [address] [place] [address] 10/10/2024 13:58:42 10/15/2024 12:17:37 Dysfunction of bilateral eustachian tubes 0849263230 740817 H69.93 Health Concerns Section Related Observation LastModified by Organization Detai ls LastModified Time None Recorded Concern Status LastModified by Organization Details LastModified Time None Recorded Advance Directives Directive N: Payers Encounter Date Sequence Insurance Name Policy Number Policy Boo Covered Member ID Boo Member ID Guarantor Name 07/04/2024 1 [place] Sanita A Divietro [id number] Sanita A Divietro 07/04/2024 2 [employer] [place] (MEDICARE SUPPLEMENT) PLAN F Sanita A Divietro [id number] Sanita A Divietro 07/24/2024 1 [place] Sanita A Divietro [id number] Sanita A Divietro 07/24/2024 2 [employer] [place] (MEDICARE SUPPLE[place]) PLAN F Sanita A Divietro [id number] Sanita A Divietro 08/27/2024 1 [place] Sanita A Divietro [id number] Sanita A Divietro 08/27/2024 2 [employer] [place] (MEDICARE SUPPLEMENT) PLAN F Sanita A Divietro [id number] Sanita A Divietro 09/11/2024 1 [place] Sanita A Divietro [id number] Sanita A Divietro 09/11/2024 2 [employer] [place] (MEDICARE SUPPLE[place]) PLAN F Sanita A Divietro [id number] Sanita A Divietro 10/10/2024 1 [place] Sanita A Divietro [id number] Sanita A Divietro 10/10/2024 2 [employer] [place] (MEDICARE SUPPLEMENT) PLAN F Sanita A Divietro [id number] Sanita A Divietro Notes Date Note Type Note Provider Name and Address Organization Details Recorded Time text/html Pt here today for a follow up. taking meds, no side effectsPT IS FASTING ( Medicare/[employer] [place] ) Dysphagia-had trouble swallowing seen Dr. Pierre, had esophagus stretched in 2019, and again in [address] Germain, no more symptoms, Hypertension- on meds, under controlLosartan 50 mg qd Diabetes- does accu checks some times, running 134 under control watching diet( ENDO RETIRING ) looking for new oneA1C- 6.7 @ Endo 10/13/23Meds- Trulicity 0.75 mg/0.5 ML, Metformin 1000 mg BIDEye exam at [facility] Diabetic Neuropathy- not on gabapentin, symptoms are better, had NCS in the past. Osteopenia- on medsMeds- Alendronate 70mg once a week Insomnia- on meds, helpsMeds- Zolpidem 0.5 mg @ hs PRN helps GERD- symptoms under controlMeds- Pantoprazole 20 mg bid Depression-, seeing psych dr Burns . anxiety and mood is under control.Meds- Lamotrigine 100 mg HS, Alprazolam 0.5 qid prn , TopiramateObesity- watching diet, has lost 2 hyperlipidemia- on meds, stableMeds- Atorvastatin 40 mg qd Sleep apnea- on cpap, sleep study done 2017 Fatty liver- improvedAsthma- under control, seeing pulmwas on Symbicort bid, alb inhaler and nebs Vit D def- to take otc Edema- on meds and betterMeds- Furosemide 20 mg qdCarotid stenosis- mild disease, on asa , dopplers 69% on left, less than 50% on the right, Varicose legs- some times ached and pains Aortic valve stenosis- s/p open heart , surgery w/ aortic valve replacement [place] 03/08 CAD-coronary artery bypass graft x 1 in 03/08, no symptoms , getting HOLTER FROM CARDIOLOGYVaricose veins, asymptomatics/p both mastectomy due to recurrent benign tumors and high risk for breast cancer, SHE IS GETTING EAR TUBESGETTING MEMORY EVALUATION FROM NEUROSEEING OPHTHALMOLOGYGETTING CARDIAC WORK UP Anabella Daniels MD [address] [facility] [facility] [address], [place], [address], [place] 07/04/2024 16:04:27 4 text/html this patient had an audiogram which demonstrated a type C audiogram on the right and a type B on the left. There is mixed loss bilaterally Maggie Carlton, MD [address], [place], [address], [employer] 07/24/2024 12:59:24 5 text/html This patient presents to the office for a postoperative visit from a bilateral myringotomy with tubes and bilateral Eustachian tube balloon dilation that was completed on 08/19/2024. She does report some continued right ear congestion and diminished hearing. She denies any other complaints. DIAZ Morrell [address], [place], [address], [employer] 08/27/2024 11:17:48 5 text/html Pt is here today for feeling sick all the time.She has been vomiting a lot lately, can not eat meat.She has lost 26 lbs since last May.Gets abd pain due to dry heavesshe is on trulicity for long time she had EGD and manometry in 2019, wa sn Anabella Daniels MD [address], [place], [address], [employer] 09/11/2024 16:27:34 5 text/html this patient had PE tubes placed last year but reports severe hearing loss since then. She reports that she is unable to tolerate her hearing loss at this point. Maggie Vincent MD [address], [place], [address], [employer] 10/10/2024 14:21:52 OBGyn Episode No OBEpisode recorded.
--- OUTSIDE RECORDS SUMMARY | 2024-11-06 00:39 | XMS_ITS | Referral Summary ---
Author Organization [facility] Address [address] [place] [address] Phone Care Team Providers Care Tobacco Conditioner Name Role Phone Maurice Daniels MD Primary Care Provider Jeremias Grewal MD Unavailable [phone] Brennen Maldonado MD Unavailable Alonso Antunez DNP Unavailable Dejuan Butterfield MD Unavailable [phone] John Avila MD Unavailable Vin Oliver MD Unavailable [phone] Kvng Valverde MD Unavailable Prabhu Harp NP Unavailable Ary Spangler OT Unavailable Encounters Date Type Department Care Team Description 11/05/2024 2:30 PM CDT Therapy [facility] Occupational Therapy [address] [place] [address] Ary Spangler OT Cortical visual impairment (Primary Dx) 10/22/2024 12:41 AM EDUCATION INTERN - 10/22/2024 11:06 AM [facility] Emergency [facility] Emergency Department [address] [place] [address] Masood Gibson MD COVID-19 virus infection (Primary Dx); Chronic nausea; Chronic abdominal pain; Hypertension, unspecified type Discharge Disposition: Discharge to home or self care 10/01/2024 2:30 PM EDUCATION INTERN Therapy [facility] Occupational [address] [address] Ary Spangler OT Cortical visual impairment (Primary Dx) 09/24/2024 9:00 AM EDUCATION INTERN Therapy [address] [address] Ary Spangler OT Cortical visual impairment (Primary Dx) 09/11/2024 Plan of Care Documentation [facility] Occupational [address] [address] 09/10/2024 10:00 AM EDUCATION INTERN Therapy [facility] Occupational [address] [address] Ary Spangler OT Cortical visual impairment (Primary Dx) from Last 3 Months Allergies Active Allergy Reactions Criticality Noted Date Comments Levofloxacin Hallucinations,Nause a only,Other (See comments) Medium 08/26/2019 Tramadol Itching Low 04/15/2020 Trazodone Hallucinations Medium 01/25/2019 Medications aspirin 81 mg enteric coated tablet Take 1 tablet (81 mg total) by mouth daily 30 tablet 11 9 Active furosemide (LASIX) 40 mg tablet Take 1 tablet (40 mg total) by mouth daily 30 tablet 9 Active Additional Information Patient taking differently: 20 mgoral,(No frequency reported), 1 every other day, Reported on 04/21/2021 losartan (COZAAR) 50 mg tablet Take 1 tablet (50 mg total) by mouth nightly 30 tablet 9 Active atorvastatin (LIPITOR) 20 mg tablet Take 1 tablet (20 mg total) by mouth nightly 30 tablet 3 9 Active Additional Information Patient taking differently: 80 mgoralDaily, Reported on 07/12/2024 lamoTRIgine (LaMICtal) 100 mg tablet Take 1 tablet (100 mg total) by mouth nightly 30 tablet 9 Active zolpidem (AMBIEN) 10 mg tablet TAKE 1 AND 1/2 (ONE HALF) TABLETS BY MOUTH ONCE EVERY NIGHT AT BEDTIME 0 Active ergocalciferol (VITAMIN D) 50,000 unit capsule Take 50,000 Units by mouth once a week 0 Active metFORMIN (GLUCOPHAGE) 1,000 mg tablet Take 1 tablet (1,000 mg total) by mouth 2 (two) times a day [address] (PROTONIX) 20 mg EC tablet Take 1 tablet (20 mg total) by mouth 2 (two) times a day 0 Active dulaglutide (Trulicity) 0.75 mg/0.5 mL pen injector Trulicity 0.75 mg/0.5 mL pen injector 0 Active cholecalciferol, vitamin D3, (VITAMIN D3 ORAL) Take by mouth Active montelukast (SINGULAIR) 10 mg tablet Take 10 mg by mouth nightly at bedtime. 3 Active ezetimibe (ZETIA) 10 mg tablet Take 1 tablet (10 mg total) by mouth daily 3 Active fluticasone propionate (FLONASE) 50 mcg/actuation nasal spray INSTILL 2 SPRAYS INTO THE NOSTRILS EVERY DAY 2 Active ascorbic acid (VITAMIN C) 1,000 mg tablet Take 1 tablet every day by oral route. Active budesonide-formo teroL (SYMBICORT) 160-4.5 mcg/actuation inhaler INHALE 2 PUFFS BY MOUTH EVERY 12 HOURS -RINSE WITH WATER AND SPIT AFTER USING 0 Active ALPRAZolam (XANAX) 0.5 mg tabletIndication s:Beta thalassemia minor Take 1 tablet (0.5 mg total) by mouth daily as needed for anxiety 3 Active insulin glargine 100 unit/mL (3 mL) pen for injection Inject 38 Units under the skin nightly Active acetic acid-hydrocortis one otic solutionIndicati ons:Beta thalassemia minor INSTILL 2 DROPS INTO AFFECTED EAR(S) 4 TIMES PER DAY FOR 7 DAYS 4 Active Active Problems Problem Noted Date Diagnosed Date Nonalcoholic fatty liver 05/18/2023 Memory impairment 05/18/2023 Hyperlipidemia 05/18/2023 Acquired trigger finger 05/18/2023 Venous insufficiency 02/06/2023 Osteoarthritis 05/09/2022 Lumbar radiculopathy 05/09/2022 Bilateral foot pain 05/09/2022 Painful diabetic neuropathy 05/09/2022 Dysphagia 02/07/2022 Steatosis of liver 02/05/2021 Gastroesophageal reflux disease 04/15/2020 History of mastectomy 05/29/2019 Vitamin D deficiency 05/29/2019 Osteopenia 05/29/2019 Sepsis 2019 A-fib 2019 Myocardial stunning 01/18/2019 Acute blood loss anemia 01/18/2019 Acute respiratory insufficiency 01/18/2019 RCA occlusion 01/18/2019 Asthma 12/05/2018 Beta thalassemia minor 12/03/2018 Iron deficiency anemia 12/03/2018 Sleep apnea 03/27/2014 Carotid artery stenosis 03/27/2014 Occlusion and stenosis of unspecified carotid ar kecia 03/27/2014 Type 2 diabetes mellitus 01/04/2014 Overview (11/23/2016): DMII WO CMP UNCNTRLD Pure hypercholesterolemia 01/04/2014 Overview (11/26/2016): PURE HYPERCHOLESTEROLEM Nonrheumatic aortic (valve) stenosis 07/08/2013 Depression 12/20/2007 Resolved Problems Problem Noted Date Diagnosed Date Resolved Date Aortic valve stenosis 12/04/20182022 Overview (12/04/2018): Added automatically from request for surgery [id number] Immunizations Immunization Administration Dates Next Due Influenza, Quadrivalent, Hig h Dose, Preservative Free, Intrr 06/13/2023,05/14/2021 Influenza, Quadrivalent, Spl it, Intramuscular 07/06/2016,06/03/2015 Influenza, Quadrivalent, Spl it, Preservative Free, Intramuscular 06/06/2022,05/29/2019,07/19/2018 Influenza, Trivalent, IM (MDV) 07/08/2014 Influenza, Unspecified 06/06/2018 Moderna SARS-CoV-2 Monovalen t Vaccination (12+ YRS) 11/09/2020,10/08/2020 Pneumococcal Conjugate PCV 13 06/06/2018, 016 RSV Vaccine, Pref, Recombina nt, Subunit, Adjuvanted, PF, IM (Arexvy) 05/09/2023 Sars-CoV-2, Unspecified 05/06/2021,11/09/2020 TD Preservative Free 04/02/2019 Social History Tobacco Use Types Packs/Day Years Used Date Smoking Tobacco: Never Smokeless Tobacco: Never Tobacco Cessation:Counseling Given: Not Answered Alcohol Use Standard Drinks/Week Comments Not Currently 0 (1 standard drink = 0.6 oz pur e alcohol) Personal Safety Answer Date Recorded Have you ever been in or are you currently in a harmful physical or emotional relationship or is someone making you feel afraid or unsafe? Denies 10/22/2024 Comments Unknown Sex and Gender Information Value Date Recorded Sex Assigned at Not on file Legal Sex Female 5:26 AM EDUCATION INTERN Gender Identity Not on file Sexual Orientation Not on file Last Filed Vital Signs Vital Sign Reading Time Taken Comments Blood Pressure 149/48 10/22/2024 9:30 AM EDUCATION INTERN Pulse 55 10/22/2024 10:45 AM EDUCATION INTERN Temperature 37.1 C (98.7 F) 10/21/2024 11:26 PM EDUCATION INTERN Respiratory Rate 16 10/22/2024 10:45 AM EDUCATION INTERN Oxygen Saturation 100% 10/22/2024 10:45 AM EDUCATION INTERN Inhaled Oxygen Concentration - - Weight 100.7 kg (222 lb) 07/16/2024 10:31 AM EDUCATION INTERN Height 157.5 cm (5' 2 ) 07/16/2024 10:31 AM EDUCATION INTERN Body Mass Index 40.6 07/16/2024 10:31 AM EDUCATION INTERN Plan of Treatment Not on file Medical Devices Implanted Type Area Transportation Agent Device Identifier Shelf Expiration Date Model / Serial / Lot Weinstein [employer] [id number] Inspiris Resilia Leaflet Sewing Ring 21mm Valve Aortic Bovine - [id number] - [id number] Implanted:Qty: 1 on 01/18/2019 by Jeremias rGewal MD at [facility] N/A: Heart [employer] 09/06/2020 [id number] / [id number] / Description:Aortic Valve Procedures Procedure Name Priority Date/Time Associated Diagnosis Comments [place] CRIT[facility] C[facility] ILL/INJURED PATIENT INIT 30-74 MIN Routine 10/22/2024 10:45 AM EDUCATION INTERN POCT GLUCOSE DEVICE Routine 10/22/2024 8 :[address] ABDOMEN PELVIS W CONTRAST ED 10/22/2024 8:46 AM EDUCATION INTERN URINALYSIS AND REFLEX TO MICROSCOPIC AND CULTURE STAT 10/22/2024 8:34 AM EDUCATION INTERN RESPIRATORY PATHOGEN PANEL STAT 10/22/2024 8:04 AM EDUCATION INTERN LIPASE Add-On 10/22/2024 1:59 AM EDUCATION INTERN TROPONIN T HIGH-SENSITIVITY 2-HOUR Timed 10/22/2024 1:59 AM EDUCATION INTERN XR CHEST 1 VIEW ED 10/22/2024 12:40 AM EDUCATION INTERN EGFR STAT 10/21/2024 11:34 PM EDUCATION INTERN DIFFERENTIAL AUTO STAT 10/21/2024 11: 34 PM EDUCATION INTERN TROPONIN T HIGH-SENSITIVITY SERIES (BASELINE, 2HR, 4HR, 6HR) STAT 10/21/2024 11:34 PM EDUCATION INTERN COMPREHENSIVE METABOLIC PANEL STAT 10/21/2024 11:34 PM EDUCATION INTERN CBC WITH AUTO DIFFERENTIAL STAT 10/21/2024 11:34 PM EDUCATION INTERN ECG 12-LEAD Routine 10/21/2024 11:29 PM EDUCATION INTERN LIPID PANEL Routine 01/20/2019 2:19 AM CDT HEMOGLOBIN A1C Routine 12/31/2018 1:30 PM CDT Preop testing from Last 3 Months or Most Recently Relevant to Health Maintenance Results * [place] [facility] C[facility] ILL/INJURED PATIENT INIT 30-74 MIN (10/22/2024 10:45 AM EDUCATION INTERN) Narrative Masood Gibson MD - 10/22/2024 10:45 AM EDUCATION INTERN Masood Gibson MD 11/04/2024 7:33 PM Critical Care Performed by: Masood Gibson MD Authorized by: Masood Gibson MD Critical care provider statement: As reflected in the history, physical exam, orders, notes, and/or MDM, I was personally present while the patient was critically ill and provided critical care services for 35 minutes, excluding time involved in separately billable procedures. Critical care was necessary to treat or prevent imminent or life-threatening deterioration of the following condition(s): unstable vital signs hyperemesis Critical care was time spent by me providing the following: continuous telemetry, continuous pulse oximetry, interpretation of bedside monitors, imaging, and arterial/venous lab draws and serial bedside patient exams decision regarding NPO status I provided emergent necessary critical care medicine services to this patient. I ordered and reviewed test results and/or imaging studies. I spent time discussing the management of this critically ill patient with consultants and the medical staff. I spent time discussing the management and therapeutic options for this critically ill patient with the patient themselves or with the appropriate designated surrogate decision-maker. I spent time documenting in the medical record. us Masood Gibson MD IN CLINIC/BEDSIDE ORDERABL ES Final Result * POCT glucose (10/22/2024 8:54 AM EDUCATION INTERN) Glucose, POC 87 70 - 199 mg/dL Blood 10/22/2024 8:54 AM EDUCATION INTERN 10/22/2024 8:54 AM EDUCATION INTERN us Masood Gibson MD LAB POCT ORDERABLES - SUKH CE Final Result [facility] [id number] Department [place] [address] * CT Abdomen Pelvis W Contrast (10/22/2024 8:46 AM EDUCATION INTERN) Anatomical Region Laterality Modality Body N/A Computed Tomogra phy 10/22/2024 9:20 AM EDUCATION INTERN Impressions 10/22/2024 9:20 AM EDUCATION INTERN NO ACUTE INTRA-ABDOMINAL FINDINGS Electronically signed by: Larry Eng M.D. Narrative 10/22/2024 9:20 AM EDUCATION INTERN EXAMINATION: CT ABDOMEN PELVIS W CONTRAST DATE: 10/22/2024 8:40 AM CLINICAL HISTORY: Abdominal pain, acute, nonlocalized Nausea and vomiting TECHNIQUE: Axial CT imaging of the abdomen and pelvis performed with 69mL of Optiray 350 intravenous contrast. 2-D Reformatted images are obtained. COMPARISON: None FINDINGS: LOWER THORAX: The lung bases are clear. LIVER: Normal in appearance as visualized. BILIARY: Prior cholecystectomy with mild pneumobilia. No biliary ductal dilatation. as visualized. SPLEEN: Normal in appearance as visualized. PANCREAS: Normal in appearance ADRENALS: Normal in appearance KIDNEYS: Normal renal outlines. No sign of hydronephrosis. GI TRACT: There is nonspecific gastric antral mucosal and/or wall thickening. The small bowel is normal in caliber with minimal fluid retention. The colon is unremarkable. No free intraperitoneal air is present. APPENDIX: Normal in appearance ABDOMINAL WALL: Unremarkable RETROPERITONEUM/LYMPH/MESENTERIC NODES: No retroperitoneal or mesenteric lymphadenopathy identified. 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 PELVIC ORGANS: Hysterectomy. There is a decompressed under distended urinary bladder, unable to evaluate the significance of the wall thickening. BONES: The visualized osseous structures are intact. No suspicious osteolytic or osteoblastic lesions. . Procedure Note Larry Eng MD - 10/22/2024 EXAMINATION: CT ABDOMEN PELVIS W CONTRAST DATE: 10/22/2024 8:40 AM CLINICAL HISTORY: Abdominal pain, acute, nonlocalized Nausea and vomiting TECHNIQUE: Axial CT imaging of the abdomen and pelvis performed with 69mL of Optiray 350 intravenous contrast. 2-D Reformatted images are obtained. COMPARISON: None FINDINGS: LOWER THORAX: The lung bases are clear. LIVER: Normal in appearance as visualized. BILIARY: Prior cholecystectomy with mild pneumobilia. No biliary ductal dilatation. as visualized. SPLEEN: Normal in appearance as visualized. PANCREAS: Normal in appearance ADRENALS: Normal in appearance KIDNEYS: Normal renal outlines. No sign of hydronephrosis. GI TRACT: There is nonspecific gastric antral mucosal and/or wall thickening. The small bowel is normal in caliber with minimal fluid retention. The colon is unremarkable. No free intraperitoneal air is present. APPENDIX: Normal in appearance ABDOMINAL WALL: Unremarkable RETROPERITONEUM/LYMPH/MESENTERIC NODES: No retroperitoneal or mesenteric lymphadenopathy identified. 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 PELVIC ORGANS: Hysterectomy. There is a decompressed under distended urinary bladder, unable to evaluate the significance of the wall thickening. BONES: The visualized osseous structures are intact. No suspicious osteolytic or osteoblastic lesions. . IMPRESSION: NO ACUTE INTRA-ABDOMINAL FINDINGS Electronically signed by: Larry Eng M.D. Masood Gibson MD IMG CT PROCEDURES Final Re sult * Urinalysis reflex to microscopic and culture Urine (10/22/2024 8:34 AM EDUCATION INTERN) Color, ur Yellow Yellow Clarity, ur Clear Clear CERNER CH Specific gravity, ur 1.010 1.003 - 1.030 CERNER CH pH, urine 5.5 CERNER CH Comment: Interpretive Data U rine pH is affected by diet, medications, systemic acid-base disturbances, and renal tubular function. pH may affect urinary stone formation. For example, urine pH below 6.0 may help reduce the tendency for calcium phosphate stones and pH greater than 6.0 may reduce the tendency for uric acid stone formation. Source: [facility] Current Interpretive Data was last revised on 2017 Protein, ur ql Negative Negative CERNER CH Glucose, ur ql Negative Negative CERNER CH Ketones, ur Negative Negative CERNER CH Bilirubin, ur Negative Negative CERNER CH Blood, ur Negative Negative CERNER CH Urobilinogen, ur <2.0 <2.0 mg/dL CERNER CH Nitrite, ur Negative Negative [facility]ERNER CH Leukocyte esterase, ur Negative Negative CERNER CH UA reflex comment Reflex conditions for microscopic UA and culture not met. CERNER CH Urine 10/22/2024 8:34 AM EDUCATION INTERN 10/22/2024 8:39 AM EDUCATION INTERN Masood Gibson MD LAB MICROBIOLOGY - GENERAL ORDERABLES Final Result [facility] [address] [address] Department [place] [address] * (ABNORMAL) Respiratory pathogen panel Nasopharyngeal (10/22/2024 8:04 AM EDUCATION INTERN) Pathologist [facility] Influenza A RNA Not Detected Not Detected Influenza B RNA Not Detected Not Detected CERNER CH RSV RNA Not Detected Not Detected CERNER CH COVID-19 RNA Detected(A) Not Detected CERNER CH Coronavirus 229E RNA Not Detected Not Detected CERNER CH Coronavirus HKU1 RNA Not Detected Not Detected CERNER CH Coronavirus NL63 RNA Not Detected Not Detected CERNER CH Coronavirus OC43 RNA Not Detected Not Detected CERNER CH Adenovirus DNA Not Detected Not Detected CERNER CH Metapneumovirus RNA Not Detected Not Detected CERNER CH Rhinovirus/Enterov irus RNA Not Detected Not Detected CERNER CH Parainfluenza 1 RNA Not Detected Not Detected CERNER CH Parainfluenza 2 RNA Not Detected Not Detected CERNER Parainfluenza 3 RNA Not Detected Not Detected CERNER Parainfluenza 4 RNA Not Detected Not Detected CERNER B. pertussis DNA Not Detected Not Detected CERNER B. parapertussis DNA Not Detected Not Detected CERNER C. pneumoniae DNA Not Detected Not Detected CERNER M. pneumoniae DNA Not Detected Not Detected CERNER Comment: Interpretive Data The Support[employer] FilmArray Respiratory Panel (RP2.1) assay is a multiplexed real-time PCR based nucleic acid test capable of simultaneous qualitative detection and identification of multiple respiratory viral and bacterial nucleic acids, including SARS Coronavirus 2 (the causative agent of COVID-19). The following bacteria, viruses and virus subtypes can be identified using the FilmArray RP2.1 assay: Bordetella pertussis, Bordetella parapertussis, Chlamydia pneumoniae, Mycoplasma pneumoniae, Adenovirus, SARS Coronavirus 2, seasonal coronaviruses (Coronavirus HKU1, Coronavirus NL63, Coronavirus 229E, and Coronavirus OC43), Influenza A, Influenza A subtype H1, Influenza A subtype H3, Influenza A subtype 2009 H1, Influenza B, Metapneumovirus, Parainfluenza 1, Parainfluenza 2, Parainfluenza 3, Parainfluenza 4, RSV, Rhinovirus/Enterovirus. Due to the genetic similarity between human Rhinovirus and Enterovirus, the FilmArray RP2.1 assay cannot reliably differentiate them. Coronavirus OC43 may cross-react with some isolates of Coronavirus HKU1. A dual positive result may be due to cross-reactivity or may indicate a co- infection. The detection and identification of specific viral and bacterial nucleic acids from individuals exhibiting signs and symptoms of a respiratory infection aids in the diagnosis of respiratory infection if used in conjunction with other clinical and epidemiological information. The results of this test should not be used as the sole basis for diagnosis, treatment, or other management decisions. Negative results in the setting of a respiratory illness may be due to infection with pathogens that are not detected by this test. Positive results do not rule out infection/co-infection with other organisms. The agent(s) detected by the FilmArray RP2.1 may not be the definite cause of disease. Additional testing (lab, imaging, etc.) may be necessary when evaluating a patient with possible respiratory tract infection. The FilmArray RP2.1 assay has FDA clearance for testing of DAILY SALES AUDIT CLERK swabs. The performance characteristics of this assay have been determined by [facility]. Current interpretive data was last revised on 2021. Nasopharyngeal 10/22/2024 8: 04 AM EDUCATION INTERN 10/22/2024 8:06 AM EDUCATION INTERN Narrative [facility] - 10/22/2024 9:05 AM EDUCATION INTERN Is the Patient experiencing symptoms consistent with COVID?->Yes Surveillance testing for transplant patient?->No Masood Gibson MD LAB MICROBIOLOGY - GENERAL ORDERABLES Final Result [facility] [id number] [address] Department [place] [address] * Troponin T high-sensitivity 2-hour (10/22/2024 1:59 AM EDUCATION INTERN) Trop T hs 11 <=14 ng/L Comment: Interpretive Data For further hscTnT resources including the diagnostic algorithm and an aid in interpretation, copy and paste this link: https://nrl.testcatalog.org/show/hsTrop Current Interpretive Data last revised 2020. Trop T hs delta 0 ng/L [facility] Trop T hs interp Insignificant [facility] Blood 10/22/2024 1:59 AM EDUCATION INTERN 10/22/2024 2:02 AM EDUCATION INTERN Osbaldo Cade MD LAB BLOOD ORDERABLES Final Result Performing Organization Address City/[facility] [address] [address] Department [place] [address] * Lipase (10/22/2024 1:59 AM EDUCATION INTERN) Lipase 40 10 - 99 Units/L Blood 10/22/2024 1:59 AM EDUCATION INTERN 10/22/2024 2:02 AM EDUCATION INTERN Robin GLORIA LAB BLOOD ORDERABLES Final Result Performing Organization Address [facility] [place] [address] [address] Department [place] [address] * XR Chest 1 Vw Portable (10/22/2024 12:40 AM EDUCATION INTERN) Anatomical Region Laterality Modality Body, Chest N/A Computed Radiogr aphy 10/22/2024 9:01 AM EDUCATION INTERN Impressions 10/22/2024 9:01 AM EDUCATION INTERN No acute cardiopulmonary findings. Electronically signed by: Danie Betancourt II, D.O. Narrative 10/22/2024 9:01 AM EDUCATION INTERN EXAMINATION: XR CHEST 1 VIEW DATE: 10/22/2024 12:30 AM INDICATION: Chest. COMPARISON: 06/18/2023. FINDINGS: No pneumothorax, pleural effusion, or pulmonary consolidation is demonstrated. The cardiomediastinal silhouette is within normal limits. No acute osseous abnormality demonstrated. Poststernotomy changes noted. Similar pulmonary nodule in the left upper lobe. Procedure Note Danie Betancourt II, - 10/22/2024 EXAMINATION: XR CHEST 1 VIEW DATE: 10/22/2024 12:30 AM INDICATION: Chest. COMPARISON: 06/18/2023. FINDINGS: No pneumothorax, pleural effusion, or pulmonary consolidation is demonstrated. The cardiomediastinal silhouette is within normal limits. No acute osseous abnormality demonstrated. Poststernotomy changes noted. Similar pulmonary nodule in the left upper lobe. IMPRESSION: No acute cardiopulmonary findings. Electronically signed by: Danie Betancourt II, D.O. us Osbaldo Cade MD IMG XR PROCEDURES Final Res ult * Troponin T high-sensitivity series (baseline, 2hr, 4hr, 6hr) (10/21/2024 11:34 PM EDUCATION INTERN) Trop T hs 11 <=14 ng/L Comment: Interpretive Data For further hscTnT resources including the diagnostic algorithm and an aid in interpretation, copy and paste this link: https://nrl.testcatalog.org/show/hsTrop Current Interpretive Data last revised 2020. Blood 10/21/2024 11:3 4 PM EDUCATION INTERN 10/21/2024 11:39 PM EDUCATION INTERN us Osbaldo Cade MD LAB BLOOD ORDERABLES Final Result [facility] [id number] [address] Department of Laboratories [place] [id number] * eGFR (10/21/2024 11:34 PM EDUCATION INTERN) eGFR 71 >=60 mL/min/1. 73 m2 Comment: Interpretive Data Reference Interval Normal >/= 90 mL/min/1.73m2 Mildly decreased* 60 - 89 mL/min/1.73m2 Mildly to moderately decreased 45 - 59 mL/min/1.73m2 Moderately to severely decreased 30 - 44 mL/min/1.73m2 Severely decreased 15 - 29 mL/min/1.73m2 Kidney Failure < 15 mL/min/1.73m2 *Relative to young adult level Estimated glomerular filtration rate is determined by the 2020 CKD-EPI equation recommended by the National Kid[employer] (A Unifying Approach to GFR Estimation: Recommendations of the NKF-ASK Task Force on Reassessing the Inclusion of Race in Diagnosing Kidney Disease, JASN 2020). The CKD-EPI equation should not be used for patients with unstable renal function and has not been validated in children and those over 70. Current interpretive data was last reviewed 2021. Blood 10/21/2024 11:3 4 PM EDUCATION INTERN 10/21/2024 11:39 PM EDUCATION INTERN us Osbaldo Cade MD LAB BLOOD ORDERABLES Final Result [facility] [id number] [address] Department [place] [address] * Differential, auto (10/21/2024 11:34 PM EDUCATION INTERN) Neutrophil abs 5.3 1.5 - 6.5 K/cumm Imm gran abs 0.0 0.0 - 0.1 K/cumm [facility] Lymphocyte abs 3.3 0.8 - 3.3 K/cumm [facility] Monocyte abs 0.7 0.2 - 0.8 K/cumm [facility] Eosinophil abs 0.3 0.0 - 0.5 K/cumm [facility] Basophil abs 0.0 0.0 - 0.1 K/cumm [facility] Neutrophil pct 54.8 % [facility] Comment: Interpretive Data Percent cell count reference ranges are not reported, since discordance with absolute values may lead to misinterpretation of CBC data. Current Interpretive Data was last revised on 2017. Imm gran pct 0.3 % [facility] Comment: Interpretive Data Percent cell count reference ranges are not reported, since discordance with absolute values may lead to misinterpretation of CBC data. Current Interpretive Data was last revised on 2017. Lymphocyte pct 34.3 % [facility] Comment: Interpretive Data Percent cell count reference ranges are not reported, since discordance with absolute values may lead to misinterpretation of CBC data. Current Interpretive Data was last revised on 2017. Monocyte pct 7.1 % [facility] Comment: Interpretive Data Percent cell count reference ranges are not reported, since discordance with absolute values may lead to misinterpretation of CBC data. Current Interpretive Data was last revised on 2017. Eosinophil pct 3.3 % [facility] Comment: Interpretive Data Percent cell count reference ranges are not reported, since discordance with absolute values may lead to misinterpretation of CBC data. Current Interpretive Data was last revised on 2017. Basophil pct 0.2 % [facility] Comment: Interpretive Data Percent cell count reference ranges are not reported, since discordance with absolute values may lead to misinterpretation of CBC data. Current Interpretive Data was last revised on 2017. Blood 10/21/2024 11:3 4 PM EDUCATION INTERN 10/21/2024 11:39 PM EDUCATION INTERN Osbaldo Cade MD LAB BLOOD ORDERABLES Final Result Performing Organization Address City/[facility]/ZIP Co de Phone Number ROSHNI JOHN [address] Department [place] [address] * (ABNORMAL) CBC with auto differential (10/21/2024 11:34 PM EDUCATION INTERN) WBC 9.7 3.8 - 9.9 K/cumm Hgb 10.0(L) 11.9 - 15.5 g/dL [facility] Hct 32.4(L) 35.6 - 45.5 % [facility] Plt 242 150 - 400 K/cumm [facility] MPV 10.0 9.1 - 12.3 fL [facility] RBC 4.38 3.90 - 5.20 M/cumm [facility] MCV 74.0(L) 81.3 - 96.4 fL [facility] MCH 22.8(L) 27.1 - 33.3 pg [facility] MCHC 30.9(L) 32.3 - 35.7 g/dL [facility] RDW CV 15.4(H) 11.1 - 14.9 % [facility] RDW SD 41.5 35.7 - 48.1 fL [facility] NRBC abs 0.00 0.00 - 0.01 K/cumm [facility] Blood 10/21/2024 11:3 4 PM EDUCATION INTERN 10/21/2024 11:39 PM EDUCATION INTERN us Osbaldo Cade MD LAB BLOOD ORDERABLES Final Result Performing Organization Address City/[facility]/ZIP Co de Phone Number ROSHNI JOHN [address] Department [place] [address] * Comprehensive metabolic panel (10/21/2024 11:34 PM EDUCATION INTERN) Sodium 139 135 - 145 mmol/L Potassium, pl 3.4 3.3 - 4.9 mmol/L [facility] Chloride 105 97 - 110 mmol/L [facility] CO2 22 22 - 32 mmol/L [facility] Anion gap 12 2 - 15 mmol/L [facility] BUN 13 6 - 25 mg/dL [facility] Creatinine 0.89 0.60 - 1.10 mg/dL [facility] Glucose 110 70 - 199 mg/dL [facility] Comment: Interpretive Data Fasting glucose >/= 126 mg/dl is diagnostic for diabetes. Fasting is defined as no caloric intake for at least 8 hours. Fasting glucose between 100 mg/dl to 125 mg/dl is diagnostic of prediabetes. In a patient with classic symptoms of hyperglycemia or hyperglycemic crisis, a random glucose >/= 200 mg/dl is diagnostic for diabetes. In the absence of unequivocal hyperglycemia, results should be confirmed by repeat testing. The classification and Diagnosis of Diabetes Diabetes Care 2021; 46: S19-S40. Current interpretive data was last revised 2022. Calcium 9.1 8.5 - 10.3 mg/dL [facility] Bilirubin, total 0.3 0.1 - 1.2 mg/dL [facility] Protein, pl 6.7 6.5 - 8.5 g/dL [facility] Albumin 4.0 3.5 - 5.0 g/dL [facility] Alk phos 69 40 - 130 Units/L [facility] ALT 11 7 - 45 Units/L [facility] AST 16 10 - 45 Units/L [facility] Blood 10/21/2024 11:3 4 PM EDUCATION INTERN 10/21/2024 11:39 PM EDUCATION INTERN us Osbaldo Cade MD LAB BLOOD ORDERABLES Final Result ROSHNI JOHN [address] Department [place] [address] * ECG 12 lead (10/21/2024 11:29 PM EDUCATION INTERN) 10/21/2024 11:2 9 PM EDUCATION INTERN Narrative [facility] - 10/22/2024 11:20 AM EDUCATION INTERN Vent Rate: 61 bpm RR Interval: 982 msec WA Interval: 194 msec QRS Duration: 101 msec QT Interval: 390 msec QTC Interval: 392 msec P-R-T Fajardo: 31 - 0 - 51 degrees IMPRESSION: SINUS RHYTHM NORMAL ECG Electronically Signed By: Isac Souza MD us Osbaldo Cade MD ECG ORDERABLES Final Resul t [facility] * Lipid panel (01/20/2019 2:19 AM CDT) Cholesterol 93 30 - 199 mg/dL ROSHNI JOHN Comment: Interpretive Data Ages < or = 19 years Acceptable: <170 mg/dL Borderline high: 170-199 mg/dL High: >or= 200 mg/dL Ages > or = 20 years Desirable: <200 mg/dL Borderline high: 200-239 mg/dL High: >or= 240 mg/dL Literature References: 1. Expert Panel on Integrated Guidelines for Cardiovascular Health and Risk Reduction in Children and Adolescents. Pediatrics 2011;128:S213 2. NCEP Expert Panel. Circulation 2004;110:227 Current Interpretive Data was last revised on 2018. Triglycerides 110 <=149 mg/dL ROSHNI JOHN Comment: Interpretive Data Ages < or = 9 years Acceptable: <75 mg/dL Borderline high: 75-99 mg/dL High: >or= 100 mg/dL Ages 10 to 20 years Acceptable: <90 mg/dL Borderline high: 90-129 mg/dL High: >or= 130 mg/dL Ages > or = 20 years Desirable: <150 mg/dL Borderline high: 150-199 mg/dL High: 200-499 mg/dL Very high: >or= 499 mg/dL Literature References: 1. Expert Panel on Integrated Guidelines for Cardiovascular Health and Risk Reduction in Children and Adolescents. Pediatrics 2011;128:S213 2. NCEP Expert Panel. Circulation 2004;110:227 Current Interpretive Data was last revised on 2018. HDL 40 >=40 mg/dL ROSHNI JOHN Comment: Interpretive Data Ages < or = 19 years Acceptable: >45 mg/dL Borderline low: 40-45 mg/dL Low: <40 mg/dL Ages > or = 20 years Desirable: >or= 60 mg/dL Low: <40 mg/dL Literature References: 1. Expert Panel on Integrated Guidelines for Cardiovascular Health and Risk Reduction in Children and Adolescents. Pediatrics 2011;128:S213 2. NCEP Expert Panel. Circulation 2004;110:227 Current Interpretive Data was last revised on 2018. LDL, calculated 31 <=129 mg/dL ROSHNI JOHN Comment: Interpretive Data Ages < or = 19 years Acceptable: <110 mg/dL Borderline high: 110-129 mg/dL High: >or= 130 mg/dL Ages > or = 20 years Optimal: <100 mg/dL Near optimal: 100-129 mg/dL Borderline high: 130-159 mg/dL High: >160 mg/dL Literature References: 1. Expert Panel on Integrated Guidelines for Cardiovascular Health and Risk Reduction in Children and Adolescents. Pediatrics 2011;128:S213 2. NCEP Expert Panel. Circulation 2004;110:227 Current Interpretive Data was last revised on 2018. Non-HDL Cholesterol 53 mg/dL ROSHNI JOHN Comment: Interpretive Data Ages < or = 19 years Acceptable: <120 mg/dL Borderline high: 120-144 mg/dL High: >145 mg/dL Ages > or = 20 years When triglycerides are >200 mg/dL, Non-HDL cholesterol is a secondary target of therapy with treatment goals that are 30 mg/dL greater than the LDL cholesterol target. Literature References: 1. Expert Panel on Integrated Guidelines for Cardiovascular Health and Risk Reduction in Children and Adolescents. Pediatrics 2011;128:S213 2. NCEP Expert Panel. Circulation 2004;110:227 Current Interpretive Data was last revised on 2018. Chol/HDL ratio 2 ROSHNI JOHN Blood specimen (specimen) 01/20/2019 2:19 AM CDT 01/20/2019 2:30 AM CDT Narrative ROSHNI JOHN - 01/20/2019 3:12 AM CDT us Mook Green MD LAB BLOOD ORDERABLES Final Resu lt ROSHNI JOHN [address] Department [place] [address] * (ABNORMAL) Hemoglobin A1c (12/31/2018 1:30 PM CDT) Hgb A1C 7.6(H) 4.0 - 5.6 % ROSHNI JOHN Estimated Average Glucose 171 mg/dL ROSHNI JOHN Comment: The ADA recommends reporting an estimated Average Glucose (eAG) with all Hemoglobin A1c results using the equation derived from a study of 507 normal and diabetic adults. Minority populations were underrepresented and children were not included. (Diabetes Care 31:2466-4842, 2008). The eAG is not equivalent to a fasting glucose. Blood specimen (specimen) 12/31/2018 1:30 PM CDT 12/31/2018 3:16 PM CDT Narrative ROSHNI JOHN - 12/31/2018 5:03 PM CDT Jeremias Grewal MD LAB BLOOD ORDERABLES Final R esult ROSHNI JOHN [address] Department [place] [address] from Last 3 Months or Most Recently Relevant to Health Maintenance Additional Health Concerns Infection Onset Date Last Indicated COVID: Recovered Comment:Added based on recent COVID infection. 11/01/2024 025 Insurance MEDICARE [facility] MEDICARE [facility] MEDICARE MEDICARE [facility] Advance Directives For more information, please contact: [phone] * Full Code (Latest Code Status on File) Date Activated Date Inactivated Comments 01/29/2019 6:44 PM 02/08/2019 10:55 PM * Full Code Date Activated Date Inactivated Comments 01/18/2019 2:27 PM 01/29/2019 6:14 PM Care Teams Tobacco Conditioner Relationship Specialty Start Date End Date Maurice Daniels MD PCP - General 12/05/17 Jeremias Grewal MD Surgeon Cardiothoracic Surgery 10/07/19 Brennen Maldonado MD [address] [place] [address] Consulting Physician Hematology and Oncology 05/18/23 Alonso Antunez DNP [address] [place] [address] Nurse Practitioner Hematology and Oncology 05/18/23 Dejuan Butterfield MD [address] [facility] [address] [place] [address] Referring Physician Ophthalmology 01/11/24 John Avila MD [address] [facility] [address] [place], [place] [id number] Referring Physician Obstetrics and Gynecology 05/27/24 Vin Oliver MD [address] [facility] [place] [address] Referring Physician Psychiatry 05/27/24 [place] [address] [facility] [address] [place] [address] Consulting Physician Cardiology 05/27/24 Prabhu Harp NP [address] [facility] [address] [facility] [address] [place] [address] Nurse Practitioner Sleep Medicine 05/27/24 Ary Spangler OT [address] [facility] [address] [facility] [address] [place], [place] [id number] Occupational Therapist Occupational Therapy 09/10/24
--- OUTSIDE RECORDS SUMMARY | 2024-11-06 00:39 | XMS_ITS | Encounter Summary ---
Author Organization [facility] Address [address] [place] [address] Phone Care Team Providers Care Film Flat Inspector Name Role Phone Maurice Daniels MD Primary Care Provider [phone] Jeremias Grewal MD Unavailable [phone] Brennen Maldonado MD Unavailable [phone] Alonso Antunez DNP Unavailable [phone] Dejuan Butterfield MD Unavailable [phone] John Avila MD Unavailable [phone] Vin Oliver MD Unavailable [phone] Kvng Valverde MD Unavailable Prabhu Harp NP Unavailable Ary Spangler OT Unavailable [phone] Reason for Visit * Reason Comments OT Treatment * Consultation (Routine) - Authorized Specialty Diagnoses / Procedures Referred By Contac t Referred To Contact Occupational Therapy Diagnoses Cortical visual impairment Shavon Gilman MD [address] [facility] [address] [place] [address] Phone: tel: fax: [facility] Occupational Therapy [address] [place] [address] Phone: tel: fax:[phone] Referral ID Status Reason Start Date Expiration Date Visits Requested Visits Authorized [id number] Authorized Evaluate and Treat 05/31/2024 06/30/2025 24 24 Encounter Details Date Type Department Care Team (Late st Contact Info) Description 11/05/2024 2:[address] 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 11/01/2024 11/04/2024 documented as of this encounter Care Teams Film Flat Inspector Relationship Specialty Start Date End Date Maurice Daniels MD PCP - General 12/05/17 Jeremias Grweal MD Surgeon Cardiothoracic Surgery 10/07/19 Brennen Maldonado MD [address] [place] [address] Consulting Physician Hematology and Oncology 05/18/23 Alonso Antunez DNP [address] [place] [address] Nurse Practitioner Hematology and Oncology 05/18/23 Dejuan Butterfield MD [address] [facility] [address] [place] [address] Referring Physician Ophthalmology 01/11/24 John Avila MD [address] [facility] [address] [place], [place] [address] Referring Physician Obstetrics and Gynecology 05/27/24 Vin Oliver MD [address] [place] [address] [address] [place], [place] [id number] Referring Physician Psychiatry 05/27/24 [place] [address] [facility] [address] [place] [address] Consulting Physician Cardiology 05/27/24 Prabhu Harp NP [address] [facility] [address] [facility] [address] [place] [address] Nurse Practitioner Sleep Medicine 05/27/24 Ary Spangler OT [address] [facility] [address] [facility] [address] [place] [address] Occupational Therapist Occupational Therapy 09/10/24 documented as of this encounter
--- OUTSIDE RECORDS SUMMARY | 2024-11-06 00:39 | XMS_ITS | Clinical Summary ---
Author Organization [facility] Address [address] [place] [address] Phone Care Team Providers Care Ring Making Machine Operator Name Role Phone Maurice Daniels MD Primary Care Provider Jeremias Grewal MD Unavailable [phone] Brennen Maldonado MD Unavailable [phone] Alonso Antunez DNP Unavailable Dejuan Butterfield MD Unavailable [phone] John Avila MD Unavailable Vin Oliver MD Unavailable [phone] Kvng Valverde MD Unavailable Prabhu Harp NP Unavailable Ary Spangler OT Unavailable Allergies Active Allergy Reactions Criticality Noted Date [...] (12/04/2018): Added automatically from request for surgery [id number] Encounters Date Type Department Care Team Description 11/05/2024 2:30 PM CDT Therapy [facility] Occupational Therapy [address] [place] [phone] Ary Spangler OT Cortical visual impairment (Primary Dx) 10/22/2024 12:41 AM EDGE CUTTING MACHINE OPERATOR - 10/22/2024 11:06 AM EDGE CUTTING MACHINE OPERATOR Emergency [facility] Emergency Department [address] [place] [address] Masood Gibson MD COVID-19 virus infection (Primary Dx); Chronic nausea; Chronic abdominal pain; Hypertension, unspecified type Discharge Disposition: Discharge to home or self care 10/01/2024 2:30 PM EDGE CUTTING MACHINE OPERATOR Therapy [facility] Occupational Therapy [address] [place] [phone] Ary Spangler OT Cortical visual impairment (Primary Dx) 09/24/2024 9:00 AM EDGE CUTTING MACHINE OPERATOR Therapy [facility] Occupational [address] [phone] Ary Spangler OT Cortical visual impairment (Primary Dx) 09/11/2024 Plan of Care Documentation [facility] Occupational Therapy [address] [place] [phone] 09/10/2024 10:00 AM EDGE CUTTING MACHINE OPERATOR Therapy [facility] Occupational [address] [phone] Ary Spangler OT Cortical visual impairment (Primary Dx) from Last 3 Months Immunizations Immunization Administration Dates Next Due Influenza, [...] Sars-CoV-2, Unspecified 05/06/2021,11/09/2020 TD Preservative Free 04/02/2019 Surgical History Surgery Date Site/Laterality Comments CHOLECYSTECTOMY Cholecystectomy HYSTERECTOMY Hysterectomy MASTECTOMY Bilateral prophylactic BREAST LUMPECTOMY BREAST BIOPSY COLONOSCOPY CATARACT EXTRACTION, BILATERAL CARDIAC CATHETERIZATION ERCP LIVER BIOPSY SINUS SURGERY EYE MUSCLE SURGERY Left IR PICC LINE PLACEMENT > 5 YEARS 01/25/2019 N/A CARDIAC SURGERY AORTIC VALVE REPLACEMENT ERCP OTHER SURGICAL HISTORY 08/21/2005 - 08/20/2006 WING REMOVAL BREAST BIOPSY 08/21/2005 - 08/20/2006 MASTECTOMY BLEPHAROPTOSIS REPAIR Medical History Medical History Date Comments Hyperlipidemia Hyperlipidemia Delayed emergence from general anesthesia Hypertension Aortic valve stenosis Fatty liver Thalassemia Neuropathy Arthritis Asthma Depression Diabetes mellitus (HCC) type 2 Thalassemia Nonalcoholic steatohepatitis (VALENTINE) Sleep apnea Depression Diabetes (HCC) Family History Medical History Relation Name Comments Cancer Brother Lung cancer Brother Heart attack Father Heart disease Father Breast cancer Mother Cancer Mother Diabetes type II Mother Diabetes -T ype 2; Relation Name Status Comments Brother Father Mother Social History Tobacco Use Types Packs/Day Years [...] on file Legal Sex Female 5:26 AM EDGE CUTTING MACHINE OPERATOR Gender Identity Not on file Sexual Orientation Not on file Obstetrics History Last Filed Vital Signs Vital Sign Reading Time Taken Comments Blood Pressure 149/48 10/22/2024 9:30 AM EDGE CUTTING MACHINE OPERATOR Pulse 55 10/22/2024 10:45 AM EDGE CUTTING MACHINE OPERATOR Temperature 37.1 C (98.7 F) 10/21/2024 11:26 PM EDGE CUTTING MACHINE OPERATOR Respiratory Rate 16 10/22/2024 10:45 AM EDGE CUTTING MACHINE OPERATOR Oxygen Saturation 100% 10/22/2024 10:45 AM EDGE CUTTING MACHINE OPERATOR Inhaled Oxygen Concentration - - Weight 100.7 kg (222 lb) 07/16/2024 10:31 AM EDGE CUTTING MACHINE OPERATOR Height 157.5 cm (5' 2 ) 07/16/2024 10:31 AM EDGE CUTTING MACHINE OPERATOR Body Mass Index 40.6 07/16/2024 10:31 AM EDGE CUTTING MACHINE OPERATOR Plan of Treatment Health Maintenance Due Date Last Done Comments Albumin Creatinine Ratio, Urine 1960 Breast Cancer Screening-Mammogram 1958 Colon Cancer Screening-Colonoscopy 1960 Depression Screening 1960 Hepatitis C Screening 1960 Foot Exam 1960 Hepatitis B Screening 01/23/1976 Zoster Vaccine (1 of 2) 01/23/2008 DTaP/Tdap/Td Vaccine (1 - Tdap) 04/03/2019 9 Hemoglobin A1C 07/03/2019 12/31/2018 Lipid Panel 01/21/2020 01/20/2019 Well Visit 65+ 2023 Osteoporosis Screening-Bone Density Scan 03/11/2023 03/11/2021 Covid-19 Vaccine ( season) 2024 06/05/2023, 05/03/2022, 12/06/2021, Additional history exists Influenza Vaccine (#1) 2024 , 06/06/2022, 05/14/2021, Additional history exists Dilated Eye Exam 05/27/2025 05/27/2024 Fall Risk Assessment 09/10/2025 09/10/2024, 05/09/20 22 eGFR 10/21/2025 10/21/2024, 05/22, 12/12/2023, Additional history exists Pneumococcal vaccine 65+ Completed 024, 06/06/2018, 07/06/2016 Medical Devices Implanted Type Area Communications Field Technician Device Identifier Shelf Expiration Date Model / Serial / Lot [employer] [id number] Inspiris Resilia Leaflet Sewing Ring 21mm Valve Aortic Bovine - [id number] - [id number] Implanted:Qty: 1 on 01/18/2019 by Jeremias Grewal MD at [facility] N/A: Heart [employer] 09/06/2020 [id number] / [id number] / Description:Aortic Valve Procedures Procedure Name Priority Date/Time Associated Diagnosis Comments MS CRITICAL CARE ILL/INJURED PATIENT INIT 30-74 MIN Routine 10/22/2024 10:45 AM EDGE CUTTING MACHINE OPERATOR POCT GLUCOSE DEVICE Routine 10/22/2024 8 :54 AM EDGE CUTTING MACHINE OPERATOR CT ABDOMEN PELVIS W CONTRAST ED 10/22/2024 8:46 AM EDGE CUTTING MACHINE OPERATOR URINALYSIS AND REFLEX TO MICROSCOPIC AND CULTURE STAT 10/22/2024 8:34 AM EDGE CUTTING MACHINE OPERATOR RESPIRATORY PATHOGEN PANEL STAT 10/22/2024 8:04 AM EDGE CUTTING MACHINE OPERATOR LIPASE Add-On 10/22/2024 1:59 AM EDGE CUTTING MACHINE OPERATOR TROPONIN T HIGH-SENSITIVITY 2-HOUR Timed 10/22/2024 1:59 AM EDGE CUTTING MACHINE OPERATOR XR CHEST 1 VIEW ED 10/22/2024 12:40 AM EDGE CUTTING MACHINE OPERATOR EGFR STAT 10/21/2024 11:34 PM EDGE CUTTING MACHINE OPERATOR DIFFERENTIAL AUTO STAT 10/21/2024 11: 34 PM EDGE CUTTING MACHINE OPERATOR TROPONIN T HIGH-SENSITIVITY SERIES (BASELINE, 2HR, 4HR, 6HR) STAT 10/21/2024 11:34 PM EDGE CUTTING MACHINE OPERATOR COMPREHENSIVE METABOLIC PANEL STAT 10/21/2024 11:34 PM EDGE CUTTING MACHINE OPERATOR CBC WITH AUTO DIFFERENTIAL STAT 10/21/2024 11:34 PM EDGE CUTTING MACHINE OPERATOR ECG 12-LEAD Routine 10/21/2024 11:29 PM EDGE CUTTING MACHINE OPERATOR LIPID PANEL Routine 01/20/2019 2:19 AM CDT HEMOGLOBIN A1C Routine 12/31/2018 1:30 PM CDT Preop testing from Last 3 Months or Most Recently Relevant to Health Maintenance Results * MS CRITICAL CARE ILL/INJURED PATIENT INIT 30-74 MIN (10/22/2024 10:45 AM EDGE CUTTING MACHINE OPERATOR) Masood Mahoney MD - 10/22/2024 10:45 AM EDGE CUTTING MACHINE OPERATOR Masood Gibson MD 11/04/2024 7:33 PM Critical [...] Result * POCT glucose (10/22/2024 8:54 AM EDGE CUTTING MACHINE OPERATOR) Glucose, POC 87 70 - 199 mg/dL Blood 10/22/2024 8:54 AM EDGE CUTTING MACHINE OPERATOR 10/22/2024 8:54 AM EDGE CUTTING MACHINE OPERATOR us Masood Gibson MD LAB POCT ORDERABLES - SUKH CE Final Result [facility] [id number] Department [place] [address] * CT Abdomen Pelvis W Contrast (10/22/2024 8:46 AM EDGE CUTTING MACHINE OPERATOR) Anatomical Region Laterality Modality Body N/A Computed Tomogra phy 10/22/2024 9:20 AM EDGE CUTTING MACHINE OPERATOR Impressions 10/22/2024 9:20 AM EDGE CUTTING MACHINE OPERATOR NO ACUTE INTRA-ABDOMINAL FINDINGS Electronically signed by: Larry Eng M.D. Narrative 10/22/2024 9:20 AM EDGE CUTTING MACHINE OPERATOR EXAMINATION: CT ABDOMEN PELVIS W CONTRAST DATE: [...] microscopic and culture Urine (10/22/2024 8:34 AM EDGE CUTTING MACHINE OPERATOR) Color, ur Yellow Yellow Clarity, ur Clear [...] tendency for uric acid stone formation. Source: [facility] Current Interpretive Data was last revised on [...] met. CERNER CH Urine 10/22/2024 8:34 AM EDGE CUTTING MACHINE OPERATOR 10/22/2024 8:39 AM EDGE CUTTING MACHINE OPERATOR Masood Gibson MD LAB MICROBIOLOGY - GENERAL ORDERABLES Final Result [facility] JOHN [address] Department [place] [address] * (ABNORMAL) Respiratory pathogen panel Nasopharyngeal (10/22/2024 8:04 AM EDGE CUTTING MACHINE OPERATOR) Influenza A RNA Not Detected Not Detected CH Influenza B RNA Not Detected Not Detected CERNER RSV RNA Not Detected Not Detected CERNER COVID-19 RNA Detected(A) Not Detected CERNER Coronavirus 229E RNA Not Detected Not Detected CERNER Coronavirus HKU1 RNA Not Detected Not Detected [facility] Coronavirus NL63 RNA Not Detected Not Detected [facility] Coronavirus OC43 RNA Not Detected Not Detected [facility] Adenovirus DNA Not Detected Not Detected CERNER Metapneumovirus RNA Not Detected Not Detected [facility] Rhinovirus/Enterov irus RNA Not Detected Not Detected [facility] Parainfluenza 1 RNA Not Detected Not Detected [facility] Parainfluenza 2 RNA Not Detected Not Detected [facility] Parainfluenza 3 RNA Not Detected Not Detected [facility] Parainfluenza 4 RNA Not Detected Not Detected [facility] B. pertussis DNA Not Detected Not Detected [facility] B. parapertussis DNA Not Detected Not Detected [facility] C. pneumoniae DNA Not Detected Not Detected [facility] M. pneumoniae DNA Not Detected Not Detected [facility] Comment: Interpretive Data The Ecwid FilmArray Respiratory Panel (RP2.1) assay is a [...] assay has FDA clearance for testing of ADOBE ARCHITECT swabs. The performance characteristics of this assay have been determined by [facility]. Current interpretive data was last revised on 2021. Nasopharyngeal 10/22/2024 8: 04 AM EDGE CUTTING MACHINE OPERATOR 10/22/2024 8:06 AM EDGE CUTTING MACHINE OPERATOR Narrative [facility] JOHN - 10/22/2024 9:05 AM EDGE CUTTING MACHINE OPERATOR Is the Patient experiencing symptoms consistent with COVID?->Yes Surveillance testing for transplant patient?->No Masood Gibson MD LAB MICROBIOLOGY - GENERAL ORDERABLES Final Result [facility] JOHN [address] Department [place] [address] * Troponin T high-sensitivity 2-hour (10/22/2024 1:59 AM EDGE CUTTING MACHINE OPERATOR) Trop T hs 11 <=14 ng/L Comment: Interpretive Data For further hscTnT resources including the diagnostic algorithm and an aid in interpretation, copy and paste this link: https://nrl.testcatalog.org/show/hsTrop Current Interpretive Data last revised 2020. Trop T hs delta 0 ng/L CERNER CH Trop T hs interp Insignificant CERNER CH Blood 10/22/2024 1:59 AM EDGE CUTTING MACHINE OPERATOR 10/22/2024 2:02 AM EDGE CUTTING MACHINE OPERATOR Osbaldo Cade MD LAB BLOOD ORDERABLES Final Result Performing Organization Address [facility] Co de Phone Number [facility] JOHN [address] Department [place] [address] * Lipase (10/22/2024 1:59 AM EDGE CUTTING MACHINE OPERATOR) Lipase 40 10 - 99 Units/L Blood 10/22/2024 1:59 AM EDGE CUTTING MACHINE OPERATOR 10/22/2024 2:02 AM EDGE CUTTING MACHINE OPERATOR Robin GLORIA LAB BLOOD ORDERABLES Final Result Performing Organization Address [facility] Phone Number ROS[facility] [address] [place] [address] * XR Chest 1 Vw Portable (10/22/2024 12:40 AM EDGE CUTTING MACHINE OPERATOR) Anatomical Region Laterality Modality Body, Chest N/A Computed Radiogr aphy 10/22/2024 9:01 AM EDGE CUTTING MACHINE OPERATOR Impressions 10/22/2024 9:01 AM EDGE CUTTING MACHINE OPERATOR No acute cardiopulmonary findings. Electronically signed by: Danie Betancourt II, D.O. Narrative 10/22/2024 9:01 AM EDGE CUTTING MACHINE OPERATOR EXAMINATION: XR CHEST 1 VIEW DATE: 10/22/2024 12:30 AM INDICATION: Chest. COMPARISON: 06/18/2023. FINDINGS: No pneumothorax, pleural effusion, or pulmonary consolidation is demonstrated. The cardiomediastinal silhouette is within normal limits. No acute osseous abnormality demonstrated. Poststernotomy changes noted. Similar pulmonary nodule in the left upper lobe. Procedure Note Danie Betancourt II, DO - 10/22/2024 EXAMINATION: XR CHEST 1 VIEW [...] (baseline, 2hr, 4hr, 6hr) (10/21/2024 11:34 PM EDGE CUTTING MACHINE OPERATOR) Trop T hs 11 <=14 ng/L Comment: Interpretive Data For further hscTnT resources including the diagnostic algorithm and an aid in interpretation, copy and paste this link: https://nrl.testcatalog.org/show/hsTrop Current Interpretive Data last revised 2020. Blood 10/21/2024 11:3 4 PM EDGE CUTTING MACHINE OPERATOR 10/21/2024 11:39 PM EDGE CUTTING MACHINE OPERATOR Osbaldo Cade MD LAB BLOOD ORDERABLES Final Result [facility] [address] Department [place] [address] * eGFR (10/21/2024 11:34 PM EDGE CUTTING MACHINE OPERATOR) eGFR 71 >=60 mL/min/1. 73 m2 Comment: [...] reviewed 2021. Blood 10/21/2024 11:3 4 PM EDGE CUTTING MACHINE OPERATOR 10/21/2024 11:39 PM EDGE CUTTING MACHINE OPERATOR us Osbaldo Cade MD LAB BLOOD ORDERABLES Final Result [facility] [address] Department [place] [address] * Differential, auto (10/21/2024 11:34 PM EDGE CUTTING MACHINE OPERATOR) Neutrophil abs 5.3 1.5 - 6.5 K/cumm Imm gran abs 0.0 0.0 - 0.1 K/cumm CERNER CH Lymphocyte abs 3.3 0.8 - 3.3 K/cumm [facility] Monocyte abs 0.7 0.2 - 0.8 K/cumm [facility] Eosinophil abs 0.3 0.0 - 0.5 K/cumm [facility] Basophil abs 0.0 0.0 - 0.1 K/cumm [facility] Neutrophil pct 54.8 % [facility] Comment: Interpretive Data Percent cell count reference ranges are not reported, since discordance with absolute values may lead to misinterpretation of CBC data. Current Interpretive Data was last revised on 2017. Imm gran pct 0.3 % [facility] Comment: Interpretive Data Percent cell count reference ranges are not reported, since discordance with absolute values may lead to misinterpretation of CBC data. Current Interpretive Data was last revised on 2017. Lymphocyte pct 34.3 % [facility] Comment: Interpretive Data Percent cell count reference ranges are not reported, since discordance with absolute values may lead to misinterpretation of CBC data. Current Interpretive Data was last revised on 2017. Monocyte pct 7.1 % [facility] Comment: Interpretive Data Percent cell count reference ranges are not reported, since discordance with absolute values may lead to misinterpretation of CBC data. Current Interpretive Data was last revised on 2017. Eosinophil pct 3.3 % [facility] CH Comment: Interpretive Data Percent cell count reference ranges are not reported, since discordance with absolute values may lead to misinterpretation of CBC data. Current Interpretive Data was last revised on 2017. Basophil pct 0.2 % [facility] Comment: Interpretive Data Percent cell count reference ranges are not reported, since discordance with absolute values may lead to misinterpretation of CBC data. Current Interpretive Data was last revised on 2017. Blood 10/21/2024 11:3 4 PM EDGE CUTTING MACHINE OPERATOR 10/21/2024 11:39 PM EDGE CUTTING MACHINE OPERATOR us Osbaldo Cade MD LAB BLOOD ORDERABLES Final Result [facility] [address] Department [place] [address] * (ABNORMAL) CBC with auto differential (10/21/2024 11:34 PM EDGE CUTTING MACHINE OPERATOR) WBC 9.7 3.8 - 9.9 K/cumm Hgb 10.0(L) 11.9 - 15.5 g/dL [facility] Hct 32.4(L) 35.6 - 45.5 % [facility] Plt 242 150 - 400 K/cumm [facility] MPV 10.0 9.1 - 12.3 fL [facility] RBC 4.38 3.90 - 5.20 M/cumm [facility] MCV 74.0(L) 81.3 - 96.4 fL [facility] MCH 22.8(L) 27.1 - 33.3 pg [facility] MCHC 30.9(L) 32.3 - 35.7 g/dL [facility] RDW CV 15.4(H) 11.1 - 14.9 % [facility] RDW SD 41.5 35.7 - 48.1 fL [facility] NRBC abs 0.00 0.00 - 0.01 K/cumm [facility] Blood 10/21/2024 11:3 4 PM EDGE CUTTING MACHINE OPERATOR 10/21/2024 11:39 PM EDGE CUTTING MACHINE OPERATOR us Osbaldo Cade MD LAB BLOOD ORDERABLES Final Result [facility] JOHN [address] [place] [address] * Comprehensive metabolic panel (10/21/2024 11:34 PM EDGE CUTTING MACHINE OPERATOR) Sodium 139 135 - 145 mmol/L Potassium, [...] CERNER CH Blood 10/21/2024 11:3 4 PM EDGE CUTTING MACHINE OPERATOR 10/21/2024 11:39 PM EDGE CUTTING MACHINE OPERATOR us Osbaldo Cade MD LAB BLOOD ORDERABLES Final Result [facility] JOHN [address] [place] [address] * ECG 12 lead (10/21/2024 11:29 PM EDGE CUTTING MACHINE OPERATOR) 10/21/2024 11:2 9 PM EDGE CUTTING MACHINE OPERATOR Narrative [facility] - 10/22/2024 11:20 AM EDGE CUTTING MACHINE OPERATOR Vent Rate: 61 bpm RR Interval: 982 msec MS Interval: 194 msec QRS Duration: 101 msec QT Interval: 390 msec QTC Interval: 392 msec P-R-T [place]: 31 - 0 - 51 degrees IMPRESSION: SINUS RHYTHM NORMAL ECG Electronically Signed By: Isac Souza MD us Osbaldo Cade MD ECG ORDERABLES Final Resul t [facility] * Lipid panel (01/20/2019 2:19 AM CDT) [...] revised on 2018. Chol/HDL ratio 2 [facility] Blood specimen (specimen) 01/20/2019 2:19 AM CDT 01/20/2019 2:30 AM CDT Narrative [facility] JOHN - 01/20/2019 3:12 AM CDT us Mook Green MD LAB BLOOD ORDERABLES Final Resu lt Performing Organization Address [facility] Co de Phone Number ROS[facility] JOHN [address] [place] [address] * (ABNORMAL) Hemoglobin A1c (12/31/2018 1:30 PM CDT) Hgb A1C 7.6(H) 4.0 - 5.6 % [facility] JOHN Estimated Average Glucose 171 mg/dL [facility] Comment: The ADA recommends reporting an estimated Average Glucose (eAG) with all Hemoglobin A1c results using the equation derived from a study of 507 normal and diabetic adults. Minority populations were underrepresented and children were not included. (Diabetes Care 31:6422-1448, 2008). The eAG is not equivalent to a fasting glucose. Blood specimen (specimen) 12/31/2018 1:30 PM CDT 12/31/2018 3:16 PM CDT Narrative [facility] - 12/31/2018 5:03 PM CDT Jeremias Grewal MD LAB BLOOD ORDERABLES Final R esult Performing Organization Address [facility] de Phone Number ROS[facility]NI JOHN [address] [place] [address] from Last 3 Months or Most Recently Relevant to Health Maintenance Additional Health Concerns Infection Onset Date Last Indicated COVID: Recovered Comment:Added based on recent COVID infection. 11/01/2024 025 Insurance MEDICARE [place] [place] [employer] [place] [employer]ICARE [place] MEDICARE MEDICARE [facility] Advance Directives For more information, please contact: [phone] * Full Code (Latest Code Status on File) Date Activated Date Inactivated Comments 01/29/2019 6:44 PM 02/08/2019 10:55 PM * Full Code Date Activated Date Inactivated Comments 01/18/2019 2:27 PM 01/29/2019 6:14 PM Care Teams Ring Making Machine Operator Relationship Specialty Start Date End Date Maurice Daniels MD PCP - General 12/05/17 Jeremias Grewal MD Surgeon Cardiothoracic Surgery 10/07/19 Brennen Maldonado MD [address] [place] [address] Consulting Physician Hematology and Oncology 05/18/23 Alonso Antunez DNP [address] [place] [address] Nurse Practitioner Hematology and Oncology 05/18/23 Dejuan Butterfield MD [address] [facility] [address] [place] [address] Referring Physician Ophthalmology 01/11/24 John Avila MD [address] [facility] [address] [place] [address] Referring Physician Obstetrics and Gynecology 05/27/24 Vin Oliver MD [address] [facility] [address] Referring Physician Psychiatry 05/27/24 [place] [address] [facility] [address] [place] [address] Consulting Physician Cardiology 05/27/24 Prabhu Harp NP [address] [facility] [address] [facility] [address] [place], [place] [id number] Nurse Practitioner Sleep Medicine 05/27/24 Ary Spangler OT [address] [facility] [address] [place], [place] [id number] Occupational Therapist Occupational Therapy 09/10/24
--- OUTSIDE RECORDS SUMMARY | 2024-11-06 00:39 | XMS_ITS | Clinical Summary ---
Author Organization [facility] Address [address] [place] [address] Care Team Providers Care Custom Leather Products Maker Name Role Phone Maurice Daniels MD Primary Care Provider [phone] Source Comments [facility] Affiliates and Associated Physician Practices is amultiple site organization consisting of ambulatory clinics and hospital sitesin [place], [place], [place] and [place]. This disclosure is being madepursuant to the Care Everywhere program and may not contain all information available regarding this patient. Last updated 18.[facility] Allergies Active Allergy Reactions Criticality Noted Date Comments Levofloxacin Psychiatric Medium 08/26/2019 Medications * Be aware that medications may not be up to date on this document. Alwaysverify current medications with the patient. Medication Sig Dispensed Refills Start Date End Date Status ALPRAZolam (XANAX) 0.25 MG tablet Take 0.25 mg by mouth 3 times daily as needed for Anxiety Active zolpidem (AMBIEN) 5 MG tablet Take 5 mg by mouth nightly as needed for Insomnia Active aspirin EC (ECOTRIN) 81 MG tablet Take 81 mg by mouth once daily Active atorvastatin (LIPITOR) 40 MG tablet Take 40 mg by mouth at bedtime Active folic acid (FOLVITE) 1 MG tablet Take 1 mg by mouth once daily Active furosemide (LASIX) 20 MG tablet Take 20 mg by mouth once daily Active lamoTRIgine (LAMICTAL) 100 MG tablet Take 100 mg by mouth 2 times daily Active metFORMIN (GLUCOPHAGE) 1000 MG tablet Take 1,000 mg by mouth 2 times daily with morning and evening meal Active pantoprazole EC (PROTONIX) 20 MG tablet Take 20 mg by mouth once daily Active topiramate (TOPAMAX) 25 MG tablet Take 25 mg by mouth at bedtime Active Insulin Glargine (TOUJEO SOLOSTAR SC) Inject 24 Units subcutaneously at bedtime Active Family History Medical History Relation Name Comments CAD (Coronary Artery Disease) Father Cancer - Breast Mother also brain Cancer - Lung Mother Diabetes - Type 1 Mother Relation Name Status Comments Father Mother Social History Tobacco Use Types Packs/Day Years Used Date Smoking Tobacco: Never Smokeless Tobacco: Never Alcohol Use Standard Drinks/Week Comments Never 0 (1 standard drink = 0.6 oz pur e alcohol) AUDIT-C Answer Date Recorded Frequency of Alcohol Consumption Never 08/26/2019 Average Number of Drinks Not on file 020 Frequency of Binge Drinking Not on file 01/2020 Sex and Gender Information Value Date Recorded Sex Assigned at Not on file Gender Identity Not on file Sexual Orientation Not on file Last Filed Vital Signs Vital Sign Reading Time Taken Comments Blood Pressure - - Pulse - - Temperature - - Respiratory Rate - - Oxygen Saturation - - Inhaled Oxygen Concentration - - Weight 103.4 kg (228 lb) 08/26/2019 8:04 AM INSULATION WORKER APPRENTICE Height 157.5 cm (5' 2 ) 08/26/2019 8:04 AM INSULATION WORKER APPRENTICE Body Mass Index 41.7 08/26/2019 8:04 AM INSULATION WORKER APPRENTICE Plan of Treatment Health Maintenance Due Date Last Done Comments BONE DENSITY TESTING 1960 COLOGUARD (AGES 45-75) - COL ON CA SCREENING 1958 COLON MONITORING 1958 COLONOSCOPY - COLON CA SCREENING 1958 CT COLONOGRAPHY - COLON CA SCREENING 1958 Colorectal Cancer Screening 1958 FIT - COLON CA SCREENING 1958 FLEX SIG - COLON CA SCREENING 1958 MAMMOGRAM 1958 MEDICARE AWV 12 MONTHS 1958 HEPATITIS C SCREENING 01/18/1976 DTAP/TDAP/TD VACCINES (1 - Tdap) 1977 PNEUMOCOCCAL VACCINE 50+ (1 of 1 - PCV) 01/23/2008 ZOSTER VACCINE (1 of 2) 01/23/2008 Respiratory Syncytial Virus (RSV) Vaccine Pt: or over 60 yrs (1 - Risk 60-74 years 1-dose series) 2018 COVID-19 VACCINE ( - 2023-2 5 season) 2024 INFLUENZA VACCINE (#1) 2024 DEPRESSION SCREENING 08/21/2024 HEPATITIS B VACCINE Aged Out No longe r eligible based on patient's age to complete this topic HIB VACCINE Aged Out No longer eligi ble based on patient's age to complete this topic HPV VACCINE Aged Out No longer eligi ble based on patient's age to complete this topic MENINGOCOCCAL (Group B) VACC INE SHARED DECISION-MAKING Aged Out No longer eligibl e based on patient's age to complete this topic MENINGOCOCCAL GROUPS A/C/Y/W VACCINE Aged Out No longer eligible b ased on patient's age to complete this topic Care Teams Custom Leather Products Maker Relationship Specialty Start Date End Date Maurice Daniels MD [id number] [address] PCP - General Internal Medicine 08/01/19
[2024-11-06 07:51] VITALS: BP 142/58; PULSE 69; RESP 16; TEMP 36.3; O2SAT 99
[2024-11-06 07:53] VITALS: BMI 35.6
[2024-11-06] MEDS: LACTATED RINGERS 1,000 ML 150 ML IV CONT (08:03)
[2024-11-06] MEDS: GENTAMICIN 80MG/SOD CHL 50 ML 80 MG/50 ML BAG 100 MG IVPB (08:04)
[2024-11-06 08:24] LABS: Glucose Point of Care 120 mg/dl (65-105)
[2024-11-06] MEDS: AMPICILLIN 2 GM/NS 100 ML 2 GM/100 ML BAG IVPB (08:40)
--- NOTE | 2024-11-06 08:40 | WPDANESEPPF ---
Anes - Initial Pre Proc Eval Procedure: Operation Date: 11/06/24 09:00 Proposed Procedures p Esophagogastroduodenoscopy - Gregg Estrada MD Date/Time: 11/06/24 08:40 Surgeon: Gregg Estrada MD Pre Op Diagnosis: Nausea and Vomiting Patient Data Age: 64 Gender: F Height: 1.57 m Weight: 88.5 kg Last Vital Signs Temp 97.3 F L 11/06/24 07:51 Pulse 69 11/06/24 07:51 Resp 16 11/06/24 07:51 BP 142/58 H 11/06/24 07:51 Pulse Ox 99 11/06/24 07:51 O2 Del Method Room Air 11/06/24 07:51 Allergies Allergy/AdvReac Type Severity Reaction Status Date / Time Quinolones Allergy Unknown Unknown Verified 11/06/24 07:46 levofloxacin AdvReac Unknown Hallucinati Verified 11/06/24 07:46 ng Home Medications ?Medication ?Instructions ?Recorded ?Confirmed ?Type aspirin 81 mg tablet,delayed 81 mg PO DAILY 06/24/19 11/06/24 History release furosemide 20 mg tablet 20 mg PO 2XW 06/24/19 11/06/24 History lamotrigine 100 mg tablet 100 mg PO DAILY 06/24/19 11/06/24 History metformin 1,000 mg tablet 1,000 mg PO BID 06/24/19 11/06/24 History zolpidem 10 mg tablet (Ambien) 5 mg PO ONCE 06/24/19 11/06/24 History cholecalciferol (vitamin D3) 25 25 mcg PO DAILY 06/21/21 11/06/24 History mcg (1,000 unit) capsule atorvastatin 80 mg tablet 80 mg PO DAILY 03/07/22 11/06/24 History ezetimibe 10 mg tablet 10 mg PO DAILY 03/07/22 11/06/24 History albuterol sulfate 90 mcg/actuation 1 - 2 puff inhalation Q4-6H PRN 04/28/22 10/29/24 Rx aerosol inhaler shortness of breath or wheezing #8.5 grams albuterol sulfate 2.5 mg/3 mL 2.5 mg (3 mL) inhalation Q4-6H PRN 07/13/22 10/29/24 Rx (0.083 %) solution for nebulization shortness of breath or wheezing #360 mL budesonide-formoterol HFA 160 2 puff inhalation Q12H #10.2 grams 07/25/22 11/06/24 Rx mcg-4.5 mcg/actuation aerosol inhaler (Symbicort) losartan 50 mg tablet 50 mg PO DAILY 06/06/24 11/06/24 History fluticasone propionate 50 1 spray intranasal Q12H PRN 09/05/24 11/06/24 History mcg/actuation nasal allergy symptoms spray,suspension pantoprazole 40 mg tablet,delayed 40 mg PO DAILY 09/05/24 11/06/24 History release propranolol 20 mg tablet 20 mg PO DAILY 09/05/24 11/06/24 History dulaglutide 4.5 mg/0.5 mL 4.5 mg subcut WEEKLY 10/18/24 11/06/24 History subcutaneous pen injector (Trulicity) insulin glargine 100 unit/mL (3 40 unit subcut DAILY 10/18/24 11/06/24 History mL) subcutaneous pen (Basaglar KwikPen U-100 Insulin) Laboratory Tests 11/06/24 07:59 POC Capillary Glucose 120 H mg/dl (65-105) Patient hx anesthesia problems: none Family hx anesthesia problems: none Results Review: All pre-operative results and documents have been reviewed as part of the pre-operative evaluation. 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 Surgical History Surgical History H/O breast biopsy H/O cardiac catheterization H/O mastectomy History of cholecystectomy Family History Family History Father Family history of blood dyscrasia Family history of glaucoma Family history of cataracts Asthma Family history of anemia Family history of diabetes mellitus in first degree relative Family history of coronary artery disease Family history of congestive heart failure Family history of heart disease in male family member before age 55 Family history of cardiovascular disease Mother Family history of mental disorder Depression Family history of liver disease Family history of diabetes mellitus in first degree relative Family history of lung disease Family history of hearing loss Family history of lung cancer Social History Social History Smoking status: Never smoker Alcohol intake: never Substance use type: does not use Do You Feel Safe in your Home?: Yes Lack of Transportation: No Lack of Food: Never True Current Housing: I Have Housing Concerned About Future Housing: No Difficulty Paying Gas/Electric Bills: No Difficulty Paying for Meds: No Currently Unemployed: No Education: High School Diploma/GED Difficulty w/ Childcare or Family Care: No Living arrangements: with friend(s) Spiritual care concerns: No Anes - Eval Final PreProcedure Day of Procedure 11/06/24 08:40 Patient weight: obese Heart: regular rate and rhythm Lungs: clear to auscultation Airway: Mallampati scale class II Neurological: alert and oriented Last oral intake: >/= 8 hours ASA classification: III Emergent: no Anesthetic plan: proceed Anesthesia type and monitoring: general GIVS and standard monitoring Results Review: All pre-operative results and documents have been reviewed as part of the pre-operative evaluation. Informed Consent: The patient's anesthetic plan and its attendant risks and benefits were discussed with the patient/family/POA. Questions were solicited and answers provided to the satisfaction of the patient/family/POA.
[2024-11-06 08:57] VITALS: BP 93/40; PULSE 64; RESP 21; O2SAT 99
[2024-11-06 09:07] VITALS: BP 93/42; PULSE 63; RESP 18; O2SAT 97
[2024-11-06 09:17] VITALS: BP 100/45; PULSE 61; RESP 18; O2SAT 97
[2024-11-06 09:36] LABS: Glucose Point of Care 86 mg/dl (65-105)
== END 2024-11-06 09:42 | disposition home or self-care (01) ==
PROVIDERS: PCP Internal Medicine; Referring Provider Internal Medicine; Visit Provider Internal Medicine Gastroenterology
PROC: 0DJ08ZZ Inspection of Upper Intestinal Tract, Via Natural or Artificial Opening Endoscopic (ICD-10-PCS; CPT 43239; principal; 2024-11-06 09:00)
DX: K29.50 Unspecified chronic gastritis without bleeding (principal); K29.80 Duodenitis without bleeding; E11.42 Type 2 diabetes mellitus with diabetic polyneuropathy; I10 Essential (primary) hypertension; E78.00 Pure hypercholesterolemia, unspecified; E11.65 Type 2 diabetes mellitus with hyperglycemia; G56.00 Carpal tunnel syndrome, unspecified upper limb; F32.A Depression, unspecified; K75.81 Nonalcoholic steatohepatitis (NASH); D56.9 Thalassemia, unspecified; E88.9 Metabolic disorder, unspecified; E66.9 Obesity, unspecified; Z68.35 Body mass index [BMI] 35.0-35.9, adult; Z79.82 Long term (current) use of aspirin; Z79.84 Long term (current) use of oral hypoglycemic drugs; Z79.51 Long term (current) use of inhaled steroids; Z79.85 Long-term (current) use of injectable non-insulin antidiabetic drugs; Z79.4 Long term (current) use of insulin; Z98.890 Other specified postprocedural states; Z98.61 Coronary angioplasty status; Z90.49 Acquired absence of other specified parts of digestive tract; Z80.1 Family history of malignant neoplasm of trachea, bronchus and lung; Z82.49 Family history of ischemic heart disease and other diseases of the circulatory system
CPT/HCPCS: 43239; 36415; 80053; 80061; 82043; 82948; 84439; 84443; 85027; 86008; 88305; 88342; J0290; J1580; J2003; J2704; J7120

== ENCOUNTER 2024-11-06 09:58 | Outpatient (CLI) | payer MEDICARE, OTHER, SELFPAY ==
[2024-11-06 10:43] LABS: Hemoglobin 10.1 g/dL (12.0-15.0); Mean Corpuscular HGB Conc 30.6 g/dl (32-36); Mean Corpuscular Hemoglobin 23.1 pg (26-34); Mean Corpuscular Volume 75.3 fl (80-100); Mean Platelet Volume 10.1 fl (7.4-10.4); Platelet Count Result 260 k/mm3 (150-375); Red Blood Count 4.38 M/mm3 (4.2-5.4); Red Cell Distribution Width 15.9 % (11.5-14.5); White Blood Count 10.1 K/mm3 (4.5-10.0)
[2024-11-06 10:55] LABS: Alanine Aminotransferase 11 U/L (6-35); Albumin Level 4.1 g/dL (3.5-5.1); Alkaline Phosphatase 72 U/L (38-126); Anion Gap 9 mmol/L (4-12); Aspartate Amino Transferase 17 U/L (14-36); Bilirubin,Total 0.5 mg/dL (0.2-1.3); Blood Urea Nitrogen 14 mg/dL (7-17); Calcium 9.3 mg/dL (8.4-10.2); Carbon Dioxide 26 mmol/L (22-30); Chloride 105 mmol/L (98-107); Cholesterol 130 mg/dL (0-200); Estimated Glomerular Filt Rate 50; Glucose 107 mg/dL (65-110); HDL Direct 50 mg/dL; Sodium 140 mmol/L (137-145); Triglycerides 113 mg/dL (<150)
[2024-11-06 11:13] LABS: LDL Cholesterol Direct 50 mg/dL
--- OUTSIDE RECORDS SUMMARY | 2024-11-06 11:14 | XMS_ITS | CONTINUITY OF CARE DOCUMENT ---
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 [employer] GERD active Kvng Valverde MD CAD s/p CABG single vsl SVG-RCA active Kvng Valvedre MD Syncope active Silverio Obando Chest discomfort--normal stress nuc 10/2021 active Kvng Valverde MD Cough active Kvng Valverde MD Elevated blood pressure active Silverio Clark i Venous insufficiency active Kvng Valverde MD Leg cramps, bilateral active Raven Ventimi glia [employer] HAND[employer]ER Hypertension active Kvng Valverde MD Cardiology examination active Silverio Obando Memory impairment active Silverio Obando ENCOUNTERS Date Type Provider Location Encounter Diag nosis - In-person encounter Office Visit Kvng Valverde MD [facility] Carotid artery disease, 50-69% LICA,<50% SHA, 09/2024 - In-person encounter Office Visit Kvng Valverde MD [facility] Fatigue--echo ef nl, ardiology examinationMemory impairment - In-person encounter Office Visit Kvng Valverde MD [facility] - In-person encounter Office Visit Kvng Valverde MD [facility] - In-person encounter Office Visit Kvng Valverde MD [facility] - In-person encounter Office Visit Kvng Valverde MD [facility] AORTIC STENOSIS, s/p 21mm C.E AVR 02/06, single vsl CABG w/SVG to RCA 01/18/19 CNECarotid artery disease, 50-69% LICA,<50% SHA, 09/2024Fatigue--echo ef nl, 05/2024Hypertension - In-person encounter Office Visit Kvng Valverde MD [facility] - In-person encounter Office Visit Kvng Valverde MD [facility] - In-person encounter Office Visit Kvng Valverde MD [facility] Fatigue--echo ef nl, 05/2024 - In-person encounter Office Visit Toney Pulido MD [facility] Leg cramps, bilateral - In-person encounter Office Visit Kvng Valverde MD [facility] Venous insufficiency - In-person encounter Office Visit Kvng Valverde MD [facility] Elevated blood pressure - In-person encounter Office Visit Kvng Valverde MD [facility] - In-person encounter Office Visit Kvng Valverde MD [facility] Cough - In-person encounter Office Visit Kvng Valverde MD [facility] - In-person encounter Office Visit Kvng Valverde MD [facility] Carotid artery disease, 50-69% LICA,<50% HSA, 09/2024Fatigue--echo ef nl, hest discomfort--normal stress nuc 10/2021 - In-person encounter Office Visit Kvng Valverde MD [facility] Fatigue--echo ef nl, 05/2024Syncope - In-person encounter Office Visit Kvng Valverde MD [facility] AORTIC STENOSIS, s/p 21mm C.E AVR 02/06, single vsl CABG w/SVG to RCA 01/18/19 CNECAD s/p CABG single vsl SVG-RCA - In-person encounter Office Visit Kvng Valverde MD [facility] Carotid artery disease, 50-69% LICA,<50% SHA, 09/2024 - In-person encounter Office Visit Kvng Valverde MD [facility] - In-person encounter Office Visit Kvng Valverde MD [facility] - In-person encounter Office Visit Kvng Valverde MD [facility] - In-person encounter Office Visit Kvng Valverde MD [facility] GERD - In-person encounter Office Visit Kvng Valverde MD [facility] - In-person encounter Office Visit Kvng Valverde MD [facility] AORTIC STENOSIS, s/p 21mm C.E AVR 02/06, single vsl CABG w/SVG to RCA 01/18/19 CNEr/o CAD;neg cath 06, neg nuc 13Chest pain - In-person encounter Office Visit Kvng Valverde MD [facility] - In-person encounter Office Visit Kvng Valverde MD [facility] AORTIC STENOSIS, s/p 21mm C.E AVR 02/06, single vsl CABG w/SVG to RCA 01/18/19 CNE - In-person encounter Office Visit Kvng Valverde MD [facility] - In-person encounter Office Visit Kvng Valverde MD [facility] Back pain, lower - In-person encounter Office Visit Kvng Valverde MD [facility] - In-person encounter Office Visit Kvng Valverde MD [facility] Edema - In-person encounter Office Visit Kvng Valverde MD [facility] - In-person encounter Office Visit Kvng Valverde MD [facility] - In-person encounter Office Visit Kvng Valverde MD [facility] - In-person encounter Office Visit Kvng Valverde MD [facility] Microvascular angina;on ecpFamily History of Hypertension: - In-person encounter Office Visit Kvng Valverde MD [facility] AORTIC STENOSIS, s/p 21mm C.E AVR 02/06, single vsl CABG w/SVG to RCA 01/18/19 CNE - In-person encounter Office Visit Kvng Valverde MD [facility] - In-person encounter Office Visit Kvng Valverde MD [facility] - In-person encounter Office Visit Kvng Valverde MD [facility] - In-person encounter Office Visit Kvng Valverde MD [facility] - In-person encounter Office Visit Kvng Valverde MD [facility] AORTIC STENOSIS, s/p 21mm C.E AVR 02/06, single vsl CABG w/SVG to RCA 01/18/19 CNE - In-person encounter Office Visit Kvng Valverde MD [facility] Obesity; - In-person encounter Office Visit Kvng Valverde MD [facility] - In-person encounter Office Visit Kvng Valverde MD [facility] Obesity; - In-person encounter Office Visit Mook Green MD [facility] HTN-06/02 ECHO MILD EF 60ASTHMA;per pulmna mdDYSLIPIDEMIA;on rxCHEST PAIN-07/26 CATH NLCHEST PAIN-11/27 NUC NEGCAD-06/02 CAROTID NEGAORTIC STENOSIS, s/p 21mm C.E AVR 02/06, single vsl CABG w/SVG to RCA 01/18/19 CNEDIABETES MELLITUS, TYPE II, UNCONTROLLEDCarotid artery disease, 50-69% LICA,<50% SHA, 09/2024Obesity;Sleep apnea;on cpap - In-person encounter Office Visit Kvng Valverde MD [facility] - In-person encounter Office Visit Kvng Valverde MD [facility] AORTIC STENOSIS, s/p 21mm C.E AVR 02/06, single vsl CABG w/SVG to RCA 01/18/19 CNE - In-person encounter Office Visit Kvng Valverde MD [facility] - In-person encounter Office Visit Kvng Valverde MD [facility] - In-person encounter Office Visit Kvng Valverde MD [facility] - In-person encounter Office Visit Kvng Valverde MD [facility] VITAL SIGNS Date Observation Value Provider [...] blood pressure, diastolic 81 mm[Hg] [address] [place] blood pressure, systolic 135 mm[Hg] Esther hernandez [place] blood pressure, cuff size regular [address] [place] oxygen saturation, oximetry 99 % Tarah Rust pulse rate 78 /min Tarah Rust Body Mass Index (Ratio) 41.15 kg/m2 Champyl garret Rust weight in kilograms E&M 102.06 kg Champyl garret Rust weight E&M 225 [lb_av] Tarah Rust height E&M 62 [in_i] Tarah Rust height in centimeters E&M 157.[address] [place] Body Mass Index (Ratio) 42.79 kg/m2 Antwan Valverde MD weight E&M 234 [lb_av] Silverio Obando Body Mass Index (Ratio) 41.70 kg/m2 Antwan Valvedre MD pulse rate 78 /min Mohini Walker [...] Ja rret blood pressure, systolic 143 mm[Hg] [facility] pulse rate 64 /min Arnulfo oxygen saturation, oximetry 95 % Arn[place] respiratory rate E&M 16 /min Arn[place] weight E&M 227 [lb_av] Arn[place] height E&M 62 [in_i] [facility] y Body Mass Index (Ratio) 40.60 kg/m2 Antwan Valverde MD pulse rate 78 /min [facility] blood pressure, cuff size regular [facility] blood pressure, diastolic 64 mm[Hg] [facility] blood pressure, systolic 118 mm[Hg] [facility] oxygen saturation, oximetry 97 % [facility] respiratory rate E&M 16 /min [facility] weight E&M 222 [lb_av] [facility] height E&M 62 [in_i] [facility] Body Mass Index (Ratio) 39.50 kg/m2 Antwan Valverde MD blood pressure, cuff size regular [facility] blood pressure, diastolic 66 mm[Hg] [facility] blood pressure, systolic 134 mm[Hg] [facility] pulse rate 72 /min [facility] oxygen saturation, oximetry 96 % [facility] respiratory rate E&M 12 /min [facility] weight E&M 216 [lb_av] Arn[place]fo height E&M 62 [in_i] [facility] y Body Mass Index (Ratio) 39.87 kg/m2 [...] mae Reed blood pressure, systolic 152 mm[Hg] [facility] marleny Reed oxygen saturation, oximetry 98 % Lisa Reed blood pressure, cuff size regular mae Reed height E&M 62 [in_i] Lisa Reed pulse rate 80 /min Lisa Reed respiratory rate E&M 20 /min Lisa Reed Body Mass Index (Ratio) 39.32 kg/m2 Antwan Valverde MD blood pressure, cuff [...] ofelia Feldman blood pressure, systolic 132 mm[Hg] [facility] lissette Feldman pulse rate 83 /min Liliana caldwell oxygen saturation, oximetry 97 % Liliana Feldman weight E&M 218 [lb_av] Liliana Catalan john respiratory rate E&M 16 /min Tiffanie evans [place] blood pressure, cuff size large Keyla gilbert [place] height E&M 62 [in_i] Liliana Catalan john [...] Body Mass Index (Ratio) 39.87 kg/m2 Antwan Valvedre MD blood pressure, diastolic 70 mm[Hg] Michael [...] Shanice Gruenenfelder respiratory rate E&M 16 /min Hsanice G ruenenfelder pulse rate 71 /min Shanice [...] Valverde MD respiratory rate E&M 16 /min [facility] blood pressure, diastolic 74 mm[Hg] [facility], systolic 124 mm[Hg] [facility] oxygen saturation, oximetry 98 % [facility] pulse rate 79 /min [facility] weight E&M 233 [lb_av] [facility] height E&M 62 [in_i] [facility] Body Mass Index (Ratio) 40.97 kg/m2 Antwan [...] mm[Hg] Roque Awanam pulse rate 84 /min Dunbar Dixon oxygen saturation, oximetry 98 % Delfino Dixon respiratory rate E&M 16 /min Dunbar Dixon weight E&M 224 [lb_av] Delfino Dixon [...] [lb_av] Jeanine ORonaldo height E&M 62 [in_i] [facility] ORonaldo Body Mass Index (Ratio) 43.53 kg/m2 Antwan Valverde MD blood pressure, cuff size large Ke rri [facility] hospital[facility] blood pressure, diastolic 70 mm[Hg] Ke rri Junior blood pressure, systolic 132 mm[Hg] [place] oxygen saturation, oximetry 98 % Shanice Pacheco respiratory rate E&M 18 /min Shanice live pulse rate 96 /min Shanice Gonzales [facility] weight E&M 238 [lb_av] Shanice Gonzales er [...] blood pressure, diastolic 80 mm[Hg] Da hussein Lyman blood pressure, systolic 128 mm[Hg] Dac ia Shen oxygen saturation, oximetry 94 % Amairlis Lyman respiratory rate E&M 16 /min Amarilis V oss pulse rate 75 /min Amarilis Lyman weight E&M 244 [lb_av] Amarilis Shen height E&M 62 [in_i] Amarilis Shen Body Mass Index (Ratio) 45.17 kg/m2 Antwan Valverde MD blood pressure, diastolic 76 mm[Hg] Da hussein Shen blood pressure, systolic 138 mm[Hg] Dac ia Shen oxygen saturation, oximetry 96 % Amarilis Lyman respiratory rate E&M 20 /min Amarilis V oss pulse rate 71 /min Amarilis Shen weight E&M 247 [lb_av] Amarilis Shen height E&M 62 [in_i] Amarilis Lyman Body Mass Index (Ratio) 43.93 kg/m2 Antwan Valverde MD pulse rate #2 56 [facility] blood pressure, koehler tolic, second observation 79 mm[Hg] [facility] blood pressure, syst olic, second observation 131 mm[Hg] [facility], [facility] 98 % [facility] pulse rate 56 /min [facility] blood pressure, diastolic 79 mm[Hg] Vi ctoria [...] [in_i] Brandan jc pulse rate #2 59 [facility] blood pressure, koehler tolic, second observation 78 mm[Hg] [facility] blood [facility], syst olic, second observation 119 mm[Hg] [facility], [facility] 98 % Rani [facility] pulse rate 59 /min Rani blood pressure, diastolic 78 mm[Hg] Vi [facility] Ted blood pressure, systolic 119 mm[Hg] Merritt cari Tebid pulse rate #2 65 [facility] blood pressure, koehler tolic, second observation 76 mm[Hg] Rani Tebid blood pressure, syst olic, second observation 132 mm[Hg] Rani Tebid oxygen saturation, oximetry 98 % Rani Tebi pulse rate 65 /min Rani Tebid blood pressure, diastolic 76 mm[Hg] Vi [facility] Tebid blood pressure, systolic 132 mm[Hg] [...] pressure, syst olic, second observation 133 mm[Hg] Rain d oxygen saturation, oximetry 98 % Rani d pulse rate 61 /min [place] d blood pressure, diastolic 78 mm[Hg] Vi ctoria Tebid blood pressure, systolic 133 mm[Hg] Merritt cari Tebid pulse rate #2 65 [place] d blood pressure, koehler tolic, second observation 73 mm[Hg] Rani d blood pressure, syst olic, second observation 126 mm[Hg] Rani d oxygen saturation, oximetry 98 % [place] pulse rate 65 /min [place] blood pressure, diastolic 73 mm[Hg] Vi ctoria Ted blood pressure, systolic 126 mm[Hg] Merritt cari Ted pulse rate #2 63 [place] blood pressure, koehler tolic, second observation 76 mm[Hg] [place] blood pressure, syst olic, second observation 135 mm[Hg] Rani oxygen saturation, oximetry 98 % Rani pulse rate 63 /min [place] blood pressure, diastolic 76 mm[Hg] Vi ctoria Ted blood pressure, systolic 135 mm[Hg] Merritt cari Tebid pulse rate #2 71 [place] blood pressure, koehler tolic, second observation 76 mm[Hg] [place] d blood pressure, syst olic, second observation 125 mm[Hg] Rani d oxygen saturation, oximetry 98 % Rani pulse rate 71 /min [place] blood pressure, diastolic 76 mm[Hg] Vi ctoria Tebid blood pressure, systolic 125 mm[Hg] Merritt andersonia Tebid pulse rate #2 68 [place] blood pressure, koehler tolic, second observation 73 mm[Hg] Rani blood pressure, syst olic, second observation 125 mm[Hg] Rani oxygen saturation, oximetry 98 % Rani pulse rate 68 /min [place] blood pressure, diastolic 73 mm[Hg] Vi wvoria blood pressure, systolic 125 mm[Hg] Merritt cari d pulse rate #2 69 [place] blood pressure, koehler tolic, second observation 78 mm[Hg] Rani blood pressure, syst olic, second observation 129 mm[Hg] Rani oxygen saturation, oximetry 98 % Rani pulse rate 69 /min [place] blood pressure, diastolic 78 mm[Hg] Vi [facility] d blood pressure, systolic 129 mm[Hg] Merritt cari d pulse rate #2 72 [place] blood pressure, koehler tolic, second observation 80 mm[Hg] Rani blood pressure, syst olic, second observation 141 mm[Hg] Rani oxygen saturation, oximetry 98 % Rani pulse rate 72 /min [place] blood pressure, diastolic 80 mm[Hg] Vi [facility] d blood pressure, systolic 141 mm[Hg] Merritt cari d pulse rate #2 58 [place] blood pressure, koehler tolic, second observation 70 mm[Hg] Rani blood pressure, syst olic, second observation 143 mm[Hg] [place] oxygen saturation, oximetry 98 % [place] pulse rate 58 /min [facility] blood pressure, diastolic 70 mm[Hg] Vi wvoria d blood pressure, systolic 143 mm[Hg] Merritt andersonia Tebid pulse rate #2 73 [facility] blood pressure, koehler tolic, second observation 74 mm[Hg] [facility] blood pressure, syst olic, second observation 119 mm[Hg] [facility] oxygen saturation, oximetry 98 % [facility] pulse rate 73 /min [facility] blood pressure, diastolic 74 mm[Hg] Vi wvoria Ted blood pressure, systolic 119 mm[Hg] [facility] 69 [facility] blood pressure, koehler tolic, second observation 83 mm[Hg] [facility] blood pressure, syst olic, second observation 139 mm[Hg] [facility] oxygen saturation, oximetry 98 % [facility] pulse rate 69 /min [facility] blood pressure, diastolic 83 mm[Hg] [facility], [facility] 139 mm[Hg] [facility] #2 64 [place] blood pressure, koehler tolic, second observation 72 mm[Hg] [facility] blood pressure, syst olic, second observation 131 mm[Hg] [facility] oxygen saturation, oximetry 98 % [facility] pulse rate 64 /min [facility] blood pressure, diastolic 72 mm[Hg] Vi [facility] Ted blood pressure, systolic 131 mm[Hg] [facility] #2 66 [facility] blood pressure, koehler tolic, second observation 76 mm[Hg] [facility] blood pressure, syst olic, second observation 138 mm[Hg] [facility] oxygen saturation, oximetry 98 % [facility] pulse rate 66 /min [facility] blood pressure, diastolic 76 mm[Hg] Vi ctoria Ted blood pressure, systolic 138 mm[Hg] Merritt cari d pulse rate #2 68 [place] blood pressure, koehler tolic, second observation 79 mm[Hg] Rani blood pressure, syst olic, second observation 125 mm[Hg] [facility] oxygen saturation, oximetry 98 % Rani pulse rate 68 /min [place] blood pressure, diastolic 79 mm[Hg] Vi ctoria Ted blood pressure, systolic 125 mm[Hg] Merritt cari d pulse rate #2 65 [place] blood pressure, koehler tolic, second observation 71 mm[Hg] [facility] blood pressure, syst olic, second observation 125 mm[Hg] [facility] oxygen saturation, oximetry 98 % [place] pulse rate 65 /min Rani blood pressure, diastolic 71 mm[Hg] Vi [facility] d blood pressure, systolic 125 mm[Hg] Merritt cari d pulse rate #2 67 [place] blood pressure, koehler tolic, second observation 73 mm[Hg] [facility] blood pressure, syst olic, second observation 130 mm[Hg] Rani oxygen saturation, oximetry 98 % Arni pulse rate 67 /min Rani blood pressure, diastolic 73 mm[Hg] [facility], systolic 130 mm[Hg] Merritt andersonia d pulse rate #2 66 [place] blood pressure, koehler tolic, second observation 71 mm[Hg] [place] blood pressure, syst olic, second observation 132 mm[Hg] [facility] oxygen saturation, oximetry 98 % [facility] pulse [facility] 66 /min [place] Tebid blood pressure, diastolic 71 mm[Hg] Vi ctoria Tebid blood pressure, systolic 132 mm[Hg] Merritt cari Tebid pulse rate #2 67 [place] Tebid blood pressure, koehler tolic, second observation 73 mm[Hg] Rani Tebid blood pressure, syst olic, second observation 135 mm[Hg] Rani Tebid oxygen saturation, oximetry 98 % Rani Tebid pulse rate 67 /min [place] Tebid blood pressure, diastolic 73 mm[Hg] Vi [facility] Tebid blood pressure, systolic 135 mm[Hg] Merritt cari Tebid pulse rate #2 77 [facility], koehler tolic, second observation 80 mm[Hg] [facility] blood [facility], syst olic, second observation 130 mm[Hg] [facility] oxygen [facility], oximetry 98 % [facility] pulse rate 77 /min [place] Tebid blood pressure, diastolic 80 mm[Hg] Vi [facility] Tebid blood pressure, systolic 130 mm[Hg] Merritt cari Tebid pulse rate #2 62 [facility] blood pressure, koehler tolic, second observation 78 mm[Hg] [place] Tebid blood pressure, syst olic, second observation 136 mm[Hg] [place] Tebid oxygen saturation, oximetry 98 % [facility] pulse [facility] 62 /min [place] Tebid blood pressure, diastolic 78 mm[Hg] Vi [facility] Tebid blood pressure, systolic 136 mm[Hg] Merritt cari Tebid pulse rate #2 91 [facility] blood pressure, koehler tolic, second observation 81 mm[Hg] [facility] blood pressure, syst olic, second observation 117 mm[Hg] [facility] oxygen [facility], oximetry 98 % [facility] pulse rate 91 /min [facility] blood [facility], diastolic 81 mm[Hg] Vi ctoria Tebid blood pressure, systolic 117 mm[Hg] Merritt cari Tebid pulse rate #2 75 [facility], koehler tolic, second observation 71 mm[Hg] [facility] blood [facility], syst olic, second observation 134 mm[Hg] [facility], oximetry 98 % [facility] pulse [facility] 75 /min [facility] blood [facility], diastolic 71 mm[Hg] Vi [facility] Tebid blood pressure, systolic 134 mm[Hg] Merritt cari Tebid pulse rate #2 63 [facility] blood pressure, koehler tolic, second observation 75 mm[Hg] [facility] blood [facility], syst olic, second observation 136 mm[Hg] [facility] oxygen [facility], oximetry 98 % [facility] pulse rate 63 /min [place] d blood pressure, diastolic 75 mm[Hg] Vi wvoria Tebid blood pressure, systolic 136 mm[Hg] Merritt cari Tebid pulse rate #2 74 [place] Tebid blood pressure, koehler tolic, second observation 78 mm[Hg] [place] Tebid blood pressure, syst olic, second observation 126 mm[Hg] Rani Tebid oxygen saturation, oximetry 98 % [facility] pulse [facility] 74 /min [place] Tebid blood pressure, diastolic 78 mm[Hg] Vi ctoria Tebid blood pressure, systolic 126 mm[Hg] Merritt andersonia Tebid pulse rate #2 71 [place] Tebid blood pressure, koehler tolic, second observation 77 mm[Hg] Rani Tebid blood pressure, syst olic, second observation 135 mm[Hg] Rani bid oxygen saturation, oximetry 98 % Rani bid pulse rate 71 /min [place] d blood pressure, diastolic 77 mm[Hg] Vi ctoria Tebid blood pressure, systolic 135 mm[Hg] Merritt cari Tebid pulse rate #2 69 [place] d blood pressure, koehler tolic, second observation 72 mm[Hg] [facility], syst olic, second observation 140 mm[Hg] Rani d oxygen saturation, oximetry 98 % Rani pulse rate 69 /min [place] d blood pressure, diastolic 72 mm[Hg] Vi ctoria Tebid blood pressure, systolic 140 mm[Hg] Merritt cari Tebid pulse rate #2 68 [place] d blood pressure, koehler tolic, second observation 74 mm[Hg] Rani d blood pressure, syst olic, second observation 135 mm[Hg] Rani d oxygen saturation, oximetry 98 % Rani d pulse rate 68 /min [place] bid blood pressure, diastolic 74 mm[Hg] Vi ctoria Tebid blood pressure, systolic 135 mm[Hg] Merritt cari Tebid pulse rate #2 66 [facility], koehler tolic, second observation 79 mm[Hg] [facility], syst olic, second observation 127 mm[Hg] Rani Tebid oxygen saturation, oximetry 98 % Rani d pulse rate 66 /min [place] Tebid blood pressure, diastolic 79 mm[Hg] Vi ctoria Tebid blood pressure, systolic 127 mm[Hg] Merritt cari Tebid pulse rate #2 63 [facility] blood pressure, koehler tolic, second observation 84 mm[Hg] Rani d blood pressure, syst olic, second observation 133 mm[Hg] Rani d oxygen saturation, oximetry 98 % [place] pulse rate 63 /min [facility] blood pressure, diastolic 84 mm[Hg] Vi [facility] Ted blood pressure, systolic 133 mm[Hg] Merritt cari Ted pulse rate #2 62 [facility] blood pressure, koehler tolic, second observation 68 mm[Hg] [facility] blood pressure, syst olic, second observation 129 mm[Hg] [facility] oxygen saturation, oximetry 98 % [facility] pulse rate 62 /min [facility] blood pressure, diastolic 68 mm[Hg] Vi [facility] Ted blood pressure, systolic 129 mm[Hg] Merritt cari Ted pulse rate #2 65 [place] blood pressure, koehler tolic, second observation 81 mm[Hg] [facility], syst olic, second observation 131 mm[Hg] [facility], oximetry 98 % [facility] pulse rate 65 /min [facility] blood pressure, diastolic 81 mm[Hg] Maryanne [facility] Ted blood pressure, systolic 131 mm[Hg] [...] tyler Dixon oxygen saturation, oximetry 98 % Dunbar Dixon respiratory rate E&M 16 /min Delfino Dixon pulse rate 77 /min Delfino Dixon weight E&M 248 [lb_av] Dunbar Dixon height E&M 62 [in_i] Dunbar Dixon Body Mass Index (Ratio) 45.21 kg/m2 [...] Natalee Alonso blood pressure, diastolic 71 mm[Hg] Ks taiwo Alonso blood pressure, systolic 126 mm[Hg] [...] Alonso Body Mass Index (Ratio) 45.17 kg/m2 [facility] weight E&M 247 [lb_av] Natalee Alonso blood pressure, diastolic 72 mm[Hg] Ks taiwo Alonso blood pressure, systolic 142 mm[Hg] Cece angelo Alonso pulse rate 86 /min Natalee Alonso oxygen saturation, oximetry 97 % Natalee Alonso respiratory rate E&M 16 /min Natalee Alonso Body Mass Index (Ratio) 45.17 kg/m2 [facility] weight E&M 247 [lb_av] Natalee Alonso blood pressure, diastolic 77 mm[Hg] Me taiwo Patel blood pressure, systolic 164 mm[Hg] Cece Patel pulse rate 72 /min Natalee Patel oxygen saturation, oximetry 99 % Natalee Patel respiratory rate E&M 16 /min Natalee Patel Body Mass Index (Ratio) 45.50 kg/m2 [facility] rodrigo Patel weight E&M 248.8 [lb_av] Natalee Patel Body Mass Index (Ratio) 45.17 kg/m2 [facility] blood pressure, diastolic 65 mm[Hg] Ks taiwo Alonso blood pressure, systolic 133 mm[Hg] [...] Christian lder blood pressure, diastolic 78 mm[Hg] Ks taiwo Alonso blood pressure, systolic 145 mm[Hg] [...] Rani Tebid oxygen saturation, oximetry 97 % [facility], [facility] 78 mm[Hg] Vi [facility] Tebid blood pressure, systolic 139 mm[Hg] [facility] #2 72 [place] Tebi blood pressure, koehler tolic, second observation 65 mm[Hg] Rani Tebid blood pressure, syst olic, second observation 148 mm[Hg] Rani Tebid oxygen saturation, oximetry 97 % Rani Tebid pulse rate 71 /min Rani Tebid blood pressure, diastolic 60 mm[Hg] Vi [facility] Tebid blood pressure, systolic 151 mm[Hg] [...] pressure, syst olic, second observation 121 mm[Hg] [facility] oxygen saturation, oximetry 97 % [facility] pulse rate 76 /min [facility] blood pressure, diastolic 58 mm[Hg] [facility] Tebid blood pressure, systolic 121 mm[Hg] Merritt alcala [facility] pulse rate #2 86 [facility] blood pressure, koehler tolic, second observation 61 mm[Hg] [facility] blood pressure, syst olic, second observation 132 mm[Hg] [facility] oxygen saturation, oximetry 97 % [facility] pulse rate 81 /min [facility] blood pressure, diastolic 66 mm[Hg] [facility], systolic 144 mm[Hg] Merritt [facility] pulse rate #2 69 [facility] blood pressure, koehler tolic, second observation 64 mm[Hg] [facility] blood pressure, syst olic, second observation 129 mm[Hg] [facility] oxygen saturation, oximetry 97 % [facility] pulse rate 71 /min [facility] blood pressure, diastolic 71 mm[Hg] Vi [facility] blood pressure, systolic 136 mm[Hg] Merritt cari [facility] blood pressure, diastolic 71 mm[Hg] An eatris Tramaine blood pressure, systolic 135 mm[Hg] Ane atris Tramaine pulse rate 88 /min [facility] oxygen saturation, oximetry 97 % Yarelisatrerica Redd respiratory rate E&M 18 /min Angelai kee Redd weight E&M 250 [lb_av] Yarelisatris Tramaine pulse rate #2 77 [facility] blood pressure, koehler tolic, second observation 77 mm[Hg] [facility] blood pressure, syst olic, second observation 135 mm[Hg] Rani Tebid oxygen saturation, oximetry 98 % Rani Tebid pulse rate 73 /min Rani Tebid blood pressure, diastolic 68 mm[Hg] Vi ctoria Tebid blood pressure, systolic 148 mm[Hg] Merritt cari Tebid pulse rate #2 82 [place] Tebid blood pressure, koehler tolic, second observation 74 mm[Hg] Rani Tebid blood pressure, syst olic, second observation 126 mm[Hg] Rani Tebid oxygen saturation, oximetry 98 % Rani bid pulse rate 85 /min Rani bid blood pressure, diastolic 86 mm[Hg] Vi ctoria Tebid blood pressure, systolic 146 mm[Hg] Merritt cari Tebid pulse rate #2 76 [place] Tebid blood pressure, koehler tolic, second observation 80 mm[Hg] Rani bid blood pressure, syst olic, second observation 134 mm[Hg] Rani Tebid oxygen saturation, oximetry 98 % Rani bid pulse rate 82 /min Rani Tebid blood pressure, diastolic 88 mm[Hg] Vi ctoria Tebid blood pressure, systolic 145 mm[Hg] Merritt cari Tebid pulse rate #2 77 [place] Tebid blood pressure, koehler tolic, second observation 72 mm[Hg] Rani Tebid blood pressure, syst olic, second observation 145 mm[Hg] Rani Tebid oxygen saturation, oximetry 98 % Rani bid pulse rate 71 /min Rani Tebid blood pressure, diastolic 69 mm[Hg] Vi ctoria Tebid blood pressure, systolic 148 mm[Hg] Merritt cari Tebid pulse rate #2 66 [place] Tebid blood pressure, koehler tolic, second observation [...] Merritt cari Tebid pulse rate #2 75 [place] Tebid blood pressure, koehler tolic, second observation 65 mm[Hg] Rani Tebid blood pressure, syst olic, second observation 129 mm[Hg] Rani Tebid oxygen saturation, oximetry 98 % Rani bid pulse rate 75 /min [place] Tebid blood pressure, diastolic 82 mm[Hg] Vi ctoria Tebid blood pressure, systolic 145 mm[Hg] Merritt cari Tebid pulse rate #2 73 [place] Tebid blood pressure, koehler tolic, second observation 71 mm[Hg] Rani Tebid blood pressure, syst olic, second observation 134 mm[Hg] Rani Tebid oxygen saturation, oximetry 98 % [facility] 70 /min [facility] blood [facility], diastolic 93 mm[Hg] Vi ctoria Tebid blood pressure, systolic 151 mm[Hg] Merritt cari Tebid pulse rate #2 72 [place] Tebid blood pressure, koehler tolic, second observation 77 mm[Hg] [place] Tebid blood pressure, syst olic, second observation 119 mm[Hg] [place] Tebid oxygen saturation, oximetry 98 % [place] Tebid pulse rate 74 /min [place] Tebid blood pressure, diastolic 87 mm[Hg] Vi ctoria Tebid blood pressure, systolic 121 mm[Hg] Merritt cari Tebid pulse rate #2 72 [place] Tebid blood pressure, koehler tolic, second observation 81 mm[Hg] Rani Tebid blood pressure, syst olic, second observation 125 mm[Hg] [place] Tebid oxygen saturation, oximetry 98 % [facility] pulse [facility] 74 /min [place] Tebid blood pressure, diastolic 70 mm[Hg] Vi ctoria Tebid blood pressure, systolic 130 mm[Hg] Merritt cari Tebid pulse rate #2 82 Rani Tebid blood pressure, koehler tolic, second observation 75 mm[Hg] Rani bid blood pressure, syst olic, second observation 125 mm[Hg] [facility], oximetry 98 % Rani bid pulse rate 83 /min [place] bid blood pressure, diastolic 71 mm[Hg] Vi ctoria Tebid blood pressure, systolic 135 mm[Hg] Merritt cari Tebid pulse rate #2 77 [place] Tebid blood pressure, koehler tolic, second observation 88 mm[Hg] [facility] blood [facility], syst olic, second observation 132 mm[Hg] [facility], oximetry 98 % [facility] pulse [facility] 73 /min [facility] blood pressure, diastolic 76 mm[Hg] Vi ctoria Tebid blood pressure, systolic 138 mm[Hg] Merritt cari Tebid pulse rate #2 76 [place] d blood pressure, koehler tolic, second observation 79 mm[Hg] [facility] blood pressure, syst olic, second observation 126 mm[Hg] [facility] oxygen [facility], oximetry 98 % [facility] pulse rate 71 /min [place] Tebid blood pressure, diastolic 84 mm[Hg] Vi ctoria Tebid blood pressure, systolic 146 mm[Hg] Merritt [place] Tebid pulse rate #2 68 [facility] blood pressure, koehler tolic, second observation 80 mm[Hg] [facility] blood pressure, syst olic, second observation 136 mm[Hg] [facility] oxygen saturation, oximetry 98 % [facility] pulse [facility] 74 /min [facility], [facility] mm[Hg] Vi ctoria Tebid blood pressure, systolic 140 mm[Hg] Merritt cari Tebid pulse rate #2 79 [place] Tebid blood pressure, koehler tolic, second observation 59 mm[Hg] Rani Tebid blood pressure, syst olic, second observation 124 mm[Hg] Rani Tebid oxygen saturation, oximetry 98 % Rani Tebid pulse rate 83 /min [place] Tebid blood pressure, diastolic 65 mm[Hg] Vi ctoria Tebid blood pressure, systolic 133 mm[Hg] Merritt cari Tebid pulse rate #2 80 [place] Tebid blood pressure, koehler tolic, second observation 78 mm[Hg] [facility] blood [facility], syst olic, second observation 127 mm[Hg] [place] Tebid oxygen saturation, oximetry 98 % [place] Tebid pulse rate 76 /min [place] Tebid blood pressure, diastolic 81 mm[Hg] Vi ctoria Tebid blood pressure, systolic 140 mm[Hg] Merritt cari Tebid pulse rate #2 78 [place] Tebid blood pressure, koehler tolic, second observation 83 mm[Hg] Rani Tebid blood pressure, syst olic, second observation 137 mm[Hg] Rani Tebid oxygen saturation, oximetry 98 % [place] Tebid pulse rate 75 /min [place] Tebid blood pressure, diastolic 82 mm[Hg] Vi ctoria Tebid blood pressure, systolic 135 mm[Hg] Merritt cari Tebid pulse rate #2 76 [facility] blood [facility], koehler tolic, second observation 81 mm[Hg] [facility] blood pressure, syst olic, second observation 145 mm[Hg] [place] Tebid oxygen saturation, oximetry 98 % Rani [...] % Rani Tebid pulse rate 68 /min [place] Tebid blood pressure, diastolic 91 mm[Hg] Vi ctoria Tebid blood pressure, systolic 134 mm[Hg] Merritt cari Tebid pulse rate #2 82 [place] Tebid blood pressure, koehler tolic, second observation 86 mm[Hg] Rani Tebid blood pressure, syst olic, second observation 140 mm[Hg] Rani Tebid oxygen saturation, oximetry 98 % [place] Tebid pulse rate 73 /min [place] Tebid blood pressure, diastolic 89 mm[Hg] Vi ctoria Tebid blood pressure, systolic 143 mm[Hg] Merritt cari Tebid pulse rate #2 82 [place] Tebid blood pressure, koehler tolic, second observation 77 mm[Hg] Rani Tebid blood pressure, syst olic, second observation 135 mm[Hg] Rani Tebid oxygen saturation, oximetry 98 % [place] Tebid pulse rate 73 /min [place] Tebid blood pressure, diastolic 89 mm[Hg] Vi ctoria Tebid blood pressure, systolic 148 mm[Hg] Merritt cari Tebid pulse rate #2 77 [place] Tebid blood pressure, koehler tolic, second observation 83 mm[Hg] Rani Tebid blood pressure, syst olic, second observation 146 mm[Hg] [facility], oximetry 98 % Rani bid pulse rate 83 /min [place] bid blood pressure, diastolic 90 mm[Hg] Vi ctoria Tebid blood pressure, systolic 148 mm[Hg] Merritt cari Tebid pulse rate #2 73 [place] bid blood pressure, koehler tolic, second observation 61 mm[Hg] Rani d blood pressure, syst olic, second observation 130 mm[Hg] [facility], oximetry 98 % Rani d pulse rate 76 /min [place] d blood pressure, diastolic 65 mm[Hg] Vi ctoria Tebid blood pressure, systolic 139 mm[Hg] Merritt cari Tebid pulse rate #2 74 [place] d blood pressure, koehler tolic, second observation 89 mm[Hg] [facility] blood [facility], syst olic, second observation 132 mm[Hg] Rani bid oxygen saturation, oximetry 98 % Rani d pulse rate 75 /min [place] bid blood pressure, diastolic 91 mm[Hg] Vi ctoria Tebid blood pressure, systolic 158 mm[Hg] Merritt cari Tebid pulse rate #2 73 Rani Tebid blood pressure, koehler tolic, second observation 82 mm[Hg] Rani bid blood pressure, syst olic, second observation 125 mm[Hg] Rani Tebid oxygen saturation, oximetry 98 % Rani d pulse rate 74 /min [place] bid blood pressure, diastolic 93 mm[Hg] Vi ctoria Tebid blood pressure, systolic 152 mm[Hg] Merritt cari Tebid pulse rate #2 81 [place] Tebid blood pressure, koehler tolic, second observation 85 mm[Hg] [facility], syst olic, second observation 142 mm[Hg] [facility], oximetry 98 % [facility] pulse rate 82 /min [facility] blood pressure, diastolic 68 mm[Hg] Vi ctoria Tebid blood pressure, systolic 142 mm[Hg] Merritt cari Tebid pulse rate #2 78 [place] [facility] blood pressure, koehler tolic, second observation 73 mm[Hg] [facility] blood pressure, syst olic, second observation 122 mm[Hg] [place] Tebid oxygen saturation, oximetry 98 % [facility] pulse rate 75 /min [facility] blood pressure, diastolic 81 mm[Hg] Vi [facility] Tebid blood pressure, systolic 138 mm[Hg] Merritt alcala Tebid Body Mass Index (Ratio) 46.63 kg/m2 Arlene wallace Alonso blood pressure, diastolic 65 mm[Hg] Ks taiwo Alonso blood pressure, systolic 121 mm[Hg] [...] 18 /min Toño renee RN weight E&M 269 [lb_av] Toño [...] [employer] 3.5-5.2 sodium, serum 142 mmol/L [facility] [phone]/08/ 19 urea nitrogen/creatinine ratio, serum 16 [employer] [...] 0-149 High cholesterol, serum 168 mg/dL [facility] [phone]/09/ 07 hemoglobin A1C, blood, as % of [...] Not Estab. platelet count 206 X10E3/UL [facility] [phone]/09/ 07 red blood cell distribution width 15.1 [...] [employer] 3.5-5.2 sodium, serum 141 mmol/L [facility] [phone]/09/ 07 urea nitrogen/creatinine ratio, serum 20 [employer] [...] iron binding capacity, unsaturated 227 ug/dL [facility] [phone]/02/ 06 iron binding capacity, total 281 ug/dL [facility] [phone]/02/ 06 basophil count, absolute 0.0 x10E3/uL [employer] [...] Not Estab. platelet count 277 X10E3/UL [facility] [phone]/02/ 06 red blood cell distribution width 15.7 [...] 9.0-11.5 platelet count 245 THOUSAND/U L [facility] [phone]/10/ 02 Absolute Basophils 0.0 CELLS/UL [facility] 0.0-0.2 [...] [facility] 3.5-5.1 sodium, serum 140 mmol/L [facility] [phone]/10/ 02 creatinine, serum 0.8 mg/dL [facility] 0.5-0.9 [...] 3.5 - 5.1 sodium, serum 145.0 [facility]/L [facility] - 145.0 creatinine, serum 0.7 mg/dL [...] - 1.2 urea nitrogen, blood 15.0 mg/dL [facility] 6.0 - 20.0 blood glucose, random 136.0 mg/dL [facility] 74.0 - 99.0 High nitrate usage None Rani Tebid hemoglobin A1C, blood, as % of total hemoglobin 10.9 % [facility] thyroid stimulating hormone, serum 1.120 u[IU]/mL [facility] very low density lipoproteins 52 mg/dL [facility] triglyceride, serum, fasting 260 mg/dL [facility] HDL cholesterol, serum 48 mg/dL [facility] LDL cholesterol, serum 118 mg/dL [facility] cholesterol, serum 218 mg/dL [facility] albumin/globulin ratio, serum 1.3 [facility] protein, total, serum 7.2 g/dL [facility] albumin, serum 4.1 g/dL [facility] bilirubin, serum, total 0.4 mg/dL [facility] alkaline phosphatase, serum 72 1/L [facility] alanine aminotransferase (SGPT), serum 15 1/L [facility] aspartate aminotransferase (SGOT), serum 15 1/L [facility] calcium, serum 9.5 mg/dL [facility] blood glucose, fasting 170 mg/dL [facility] creatinine, serum 0.70 mg/dL [facility] urea nitrogen, blood 8 mg/dL [facility] carbon dioxide, serum, total 17 mmol/L [facility] chloride, serum 99 mmol/L [facility] potassium, serum 4.0 mmol/L [facility] sodium, serum 135 mmol/L [facility] thyroid stimulating hormone, serum 0.94 u[IU]/mL [facility] thyroxine, serum, total 8.1 ug/dL [facility] triglyceride, serum, fasting 182 mg/dL [facility] HDL cholesterol, serum 54 mg/dL [facility] LDL cholesterol, serum 102 mg/dL [facility] cholesterol, serum 192 mg/dL [facility] blood glucose, fasting 113 mg/dL [facility] creatinine, serum 0.9 mg/dL [facility] urea nitrogen, blood 11 mg/dL [facility] carbon dioxide, serum, total 29 mmol/L [facility] chloride, serum 104 mmol/L [facility] potassium, serum 3.8 mmol/L [facility] sodium, serum 140 mmol/L David Isabella platelet [...] BY MOUTH EVERY DAY - April Lane [place] Specialist clopidogrel 75 mg tablet completed Take [...] mouth daily - Toño Mann RN PRISTIQ [id number] completed daily - Toño Mann RN ZETIA 10 MG ORAL TABLET completed 1 tablet by mouth daily - Natalee Alonso CRESTOR 20 MG ORAL TABLET completed ONE TAB. DAILY - Natalee Alonso ACTOS TABLET completed daily - Hill Armenta Lamictal 100 mg tablet completed 1 tablet once a day - Silverio Alexandrutulio ASPIRIN 81 MG ORAL TABLET completed ONE [...] passive cigarette sm jese exposure no Erwin Bally smoking status Never smoker Erwin Bally drug use none Silverio Horvathtulio alcohol use no Silverio Clarkamor passive cigarette sm jese exposure no Silverio Clarkamor smoking status Never smoker Silverio Clarkamor drug use none Silverio Clarkamor alcohol use no Silverio Clarkamor passive cigarette sm jese exposure no Silverio Clarkamor smoking status Never smoker Silverio Horvathtulio [...] [place] smoking status Never smoker Raven rae [facility] social history reviewed E&M revi ewed - no changes required Raevn Siddiqui [facility] physical exercise, frequency, days per week no [...] P yasmin has never smoked. Vince Plascencia Bally social history reviewed E&M revi ewed - [...] physical exercise, frequency, days per week no [facility] caffeine use, averag e drinks per day yes [facility] passive cigarette sm jese exposure no [facility] smoking status Never smoker [facility] social history E&M Marital Statu s: Single [...] physical exercise, frequency, days per week no [facility] alcohol use, average drinks per day no [facility] alcohol use no [facility] caffeine use, averag e drinks per day yes [facility] drug use none [facility] passive cigarette sm jese exposure no [facility] smoking status Never smoker [facility] reviewed E&M revi ewed [...] exercise, frequency, days per week no Azra Colbert alcohol use, average drinks per day no Azra Colbert alcohol use no Azra Colbert caffeine use, averag e drinks per day yes Azra Colbert drug use none Azra Jone passive cigarette sm jese exposure no Azra Jone smoking status Never smoker Azra Jone social history reviewed E&M revi ewed - no changes required Kvng Valverde MD physical exercise, frequency, days per week no Delfino Dixon alcohol use, average drinks per day no Delfino Dixon alcohol use no Dunbar Dixon caffeine use, averag e drinks per day yes Dunbar Dixon drug use none Delfino Dixon passive [...] alcohol use, average drinks per day no Natlaee Alonso alcohol use no Natalee Alonso caffeine [...] no Natalee Alonso smoking status Never smoker Ntaalee Crow n social history reviewed E&M revi [...] level yes Rani Tebid energy level yes [place] Tebid energy level yes [place] Tebid energy level yes [place] Tebid energy level yes [place] Tebid energy level yes [place] Tebid energy level yes [place] Tebid energy level yes [place] Tebid energy level yes [place] Tebid energy level yes [place] Tebid energy level yes [place] Tebid energy level yes [place] Tebid energy level yes [place] Tebid energy level yes [place] Tebid energy level yes Rani Tebid energy level yes Rani Tebid energy level yes Rani Tebid energy level yes Rani Tebid energy level yes Rani Tebid energy level yes Rani Tebid energy level yes [place] Tebid energy level yes Rani Tebid energy level yes Rani Tebid energy level yes Rani Tebid energy level yes Rani Tebid energy level yes Rani Tebid energy level yes [place] Tebid energy level no Rani Tebid energy level no [place] Tebid energy level no [place] Tebid energy level yes [place] Tebid energy level yes [place] Tebid energy level yes [place] Tebid energy level yes [place] Tebid energy level yes [place] Tebid energy level yes [place] Tebid energy level yes [place] Tebid energy level yes [place] Tebid energy level yes [place] Tebid energy level yes [place] Tebid energy level yes [place] Tebid energy level yes [place] Tebid energy level yes [place] Tebid energy level yes [place] Tebid energy level yes [place] Tebid energy level yes [place] Tebid energy level yes [place] Tebid energy level yes [place] Tebid energy level yes [place] Tebid energy level yes [place] Tebid energy level yes [place] Tebid energy level yes [place] Tebid energy level yes [place] Tebid energy level yes [place] Tebid energy level yes [place] Tebid energy level yes [place] Tebid energy level yes [place] Tebid energy level no [place] Tebid energy level no [place] Tebid energy level yes [place] Tebid energy level no [place] Tebid energy level no [place] Tebid energy level no [place] Tebid energy level yes [place] Tebid energy level no [place] Tebid assessment of judgme nt and insight [...] RN FAMILY HISTORY Family Member Condition Father OH male <55 Mother Family History of Hy pertension: Mother Family History of Di abetes: Mother Family History Breas t Cancer: Father Family History Coron yash Heart Disease male < 55: INSURANCE PROVIDERS Payer name Policy type / Coverage type [place] [employer] party ID [employer] [id number] [place] Medicare [id number] ADVANCE DIRECTIVES Name Date DISCUSSED - NO DECISION MADE TREATMENT PLAN Date Name Performer [id number],S, Silverio Ahmedza i [id number],S, Silverio Ahmedza i [id number],S, Silverio Ahmedza i [id number],S, Silverio Ahmedza i [id number],S, Silverio Ahmedza i [id number],S, Silverio Ahmedza i [id number],S, Silverio Ahmedza i [id number],B, Silverio Ahmedza i [id number],S, Silverio Ahmedza i [id number],S, Silverio Ahmedza i [id number],S, Silverio Ahmedza i [id number],S, Silverio Ahmedza i [id number],S, Silverio Ahmedza i [id number],S, Silverio Ahmedza i [id number],B,Pt reports no SOB today Toney Pulido MD [id number],S,P t tried multiple types of compression stockings without helping symptoms. W ill proceed with Venaseal of right leg. Also discussed customized stockings Toney Pulido MD [id number],S,161/69 today Toney Pulido MD [id number],S,P t reports some leg cramping and more pain/swelling in her right leg. Cramping has been somewhat improving. Toney Pulido MD [id number],W, Kvng Valverde MD [id number],S, Kvng Valverde MD [id number],S, Kvng Valverde MD [id number],B, Kvng Valverde MD [id number],S, Kvng Valverde MD [id number],S, Silverio Clark i [id number],S, Silverio Finleymedza i [id number],S, Silverio Ahmedza i [id number],S, Silverio Ahmedza i [id number],S, Silverio Ahmedza i [id number],S, Silverio Ahmedza i [id number],S, Silverio Ahmedza i [id number],S, Silverio Ahmedza i [id number],S, Silverio Ahmedza i [id number],S, Silverio Ahmedza i [id number],S, Silverio Ahmedza i [id number],S, Silverio Ahmedza i [id number],S, Silverio Ahmedza i [id number],S, Silverio Ahmedza i [id number],S, Silverio Ahmedza i [id number],S, Silverio Ahmedza i [id number],S, Silverio Ahmedza i [id number],S, Silverio Ahmedza i [id number],S, Silverio Ahmedza i [id number],S, Silverio Ahmedza i [id number],S, Silverio Ahmedza i [id number],S, Silverio Ahmedza i [id number],S, Silverio Ahmedza i [id number],S, Silverio Ahmedza i [id number],S, Silverio Ahmedza i [id number],S, Silverio Ahmedza i [id number],S, Silverio Ahmedza i [id number],S, Silverio Ahmedza i [id number],S, Silverio Ahmedza i [id number],S, Silverio Ahmedza i [id number],S, Silverio Ahmedza i [id number],S, Silverio Ahmedza i [id number],S, Silverio Ahmedza i [id number],S, Silverio Ahmedza i [id number],S, Silverio Ahmedza i [id number],S, Silverio Ahmedza i [id number],S, Silverio Ahmedezio i [id number],S, Kvng Valverde MD [id number],W, Kvng Valverde MD [id number],B, Kvng Valverde MD [id number],B, Kvng Valverde MD [id number],W, Kvng Valverde MD Cardiology: O rders: C BC (INCLUDES DIFF/PLT) (6399) F ERRITIN (457) I JONG AND TOTAL IRON BINDING CAPACITY (7573) C OMPREHENSIVE METABOLIC PANEL, W/EGFR (66699) L IPID PANEL (7600) PROBNP, N TERMINAL (85747) T SH, free T4, total T3 (7444) [...] Orders: M onitor - Telemetry (Mobile Cardiac) (CPT-41844) [facility] H er updated medication list for [...] (Dulaglutide) ..... Inject 1 once a week [facility]: H er updated medication list for [...] 54 (04/08/2021) LDL: 83 (04/08/2021) T (04/08/2021) [facility]:This visi t has been a part of the consistent, comprehensive, and ongoing management of the chronic medical condition(s) listed above for the patient. Kvng Valverde MD Cardiology [facility]: O rders: C arotid Duplex Bilateral (CPT-32881) [facility]: H er updated medication list for [...] (Dulaglutide) ..... Inject 1 once a week [facility]: H er updated medication list for this problem includes: Losartan 50 Mg Tablet (Losartan) ..... Take 1/2 tablet by mouth twice a day Furosemide 20 Mg Tablet (Furosemide) ..... Take 1 tablet by mouth every day Aspirin 81 Mg Tablet,delayed Release (dr/ec) (Aspirin) ..... 1 tablet by mouth once a day [facility] Card[facility]:compression advised T cornell Hernandez Cardiology [facility]:Denies angina, SOB. C ontinue medical therapy [facility]: B P today: 143/74 P rior BP: 118/64 (10/02/2023) Prior 10 Yr Risk Heart Disease: Not enough information (11/29/2021) Labs Reviewed: C reat: 0.87 (04/08/2021) Chol: 168 (04/08/2021) HDL: 54 (04/08/2021) LDL: 83 (04/08/2021) T (04/08/2021) [facility]: B P today: 118/64 P rior BP: 134/66 (09/05/2023) Prior 10 Yr Risk Heart Disease: Not enough information (11/29/2021) Labs Reviewed: C reat: 0.87 (04/08/2021) Chol: 168 (04/08/2021) HDL: 54 (04/08/2021) LDL: 83 (04/08/2021) T (04/08/2021) [facility]: H er updated medication list for this problem includes: Ezetimibe 10 Mg Tablet (Ezetimibe) ..... Take 1 tablet by mouth every day Atorvastatin 80 Mg Tablet (Atorvastatin) ..... Take 1 tablet by mouth every evening [facility]:MARIBEL 09/09 23 which revealed normal LVF, The Aortic Valve Mean Gradient is 14.7 m Hg . The ESHA is 1.6 cm2 by planimetry and 1.2 cm2 by calculation. The dimensionless index is 0.5. [facility]io Ahmedzai Cardiology [facility] Ahmedzai Cardiology [facility] Ahmedzai Cardiology:will have pt undergo MARIBEL to assess her aortic valve [facility]io Ahmedzai Cardiology:consider stress cardi ac PET [facility] Ahmed[facility]ai Cardiology [facility] Ahmedzai [facility]iology [facility] Ahmedzai Cardiology [facility] Ahmedzai [facility] Ahmedzai [facility]iology [facility] Ahmedzai Cardiology [facility] Ahmedzai Cardiology [facility] Ahmedzai [facility]io Ahmedzai Cardiology [facility]io Ahmedzai Cardiology Silvreio Ahmedzai Cardiology [facility]io Ahmedzai Cardiology Silverio Ahmedzai [...] Toniya Willy rios MD Cardiology [facility] C Bally Cardiology:The patie nt is using CPAP on [...] Will follow. Kvng Valverde MD Cardiology:On Lexapro. Knvg villegas MD Cardiology:LDL 84 in May. To [...] ..... Once daily Orders: C omplete Echo (CPT-25195) Mook Green MD follow up: H er updated medication list for this problem includes: Aspirin 81 Mg Tabs (Aspirin) ..... One tab. daily Orders: C omplete Echo (CPT-45013) X -Ray, Chest, PA & Lateral (CPT-66993) Mook Green MD follow up Mook Green [...] with an EF of 50%. 2+ . [facility] (08/01/2006) Kvng Valverde MD Follow Up: T [...] with an EF of 50%. 2+ MR. [facility] (08/01/2006) C arotid Doppler/Duplex: Mild plaque with [...] perfusion imaging after vasodilator stress with Regadenoson. 2. Normal left ventricular systolic function with a calculated ejection fraction of 56%. 3 . No obvious significant scintigraphic evidence of myocardial ischemia or scar. (03/15/2011) Cardiac Cath: Normal coronary arteries. Mild antral hypokinesis with an EF of 50%. 2+ MR. [facility] (08/01/2006) C arotid Doppler/Duplex: Mild plaque with [...] evidence of myocardial ischemia or scar. (03/15/2011) C ardiac Cath: Normal coronary arteries. Mild antral hypokinesis with an EF of 50%. 2+ MR. [facility] (08/01/2006) C arotid Doppler/Duplex: Mild plaque with [...] criteria at 79% of target heart rate. [facility] (12/02/2008) C ardiac Cath: Normal coronary arteries. Mild antral hypokinesis with an EF of 50%. 2+ MR. [facility] (08/01/2006) C arotid Doppler/Duplex: Mild plaque is seen in the RCCA. Less than 50% stenosis of the ICA bilaterally. The flow in the vertebra arteries is antegrade bilaterally. [facility] (06/26/2006) C HOL: 192 (12/02/2008) LDL: 102 [...] criteria at 79% of target heart rate. [facility] (12/02/2008) C ardiac Cath: Normal coronary arteries. Mild antral hypokinesis with an EF of 50%. 2+ MR. [facility] (08/01/2006) C arotid Doppler/Duplex: Mild plaque is seen in the RCCA. Less than 50% stenosis of the ICA bilaterally. The flow in the vertebra arteries is antegrade bilaterally. [facility] (06/26/2006) C HOL: 192 (12/02/2008) LDL: 102 [...] criteria at 79% of target heart rate. [facility] (12/02/2008) C ardiac Cath: Normal coronary arteries. Mild antral hypokinesis with an EF of 50%. 2+ MR. [facility] (08/01/2006) C arotid Doppler/Duplex: Mild plaque is seen in the RCCA. Less than 50% stenosis of the ICA bilaterally. The flow in the vertebra arteries is antegrade bilaterally. [facility] (06/26/2006) C HOL: 192 (12/02/2008) LDL: 102 [...] TR. [facility] (02/10/2009) Orders: Juan J KG (CPT-54315) Kvng Valverde MD chest pain: H er [...] criteria at 79% of target heart rate. [facility] (12/02/2008) C ardiac Cath: Normal coronary arteries. Mild antral hypokinesis with an EF of 50%. 2+ MR. [facility] (08/01/2006) C arotid Doppler/Duplex: Mild plaque is seen in the RCCA. Less than 50% stenosis of the ICA bilaterally. The flow in the vertebra arteries is antegrade bilaterally. [facility] (06/26/2006) C HOL: 192 (12/02/2008) LDL: 102 [...] criteria at 79% of target heart rate. [facility] (12/02/2008) C ardiac Cath: Normal coronary arteries. Mild antral hypokinesis with an EF of 50%. 2+ MR. [facility] (08/01/2006) C arotid Doppler/Duplex: Mild plaque is seen in the RCCA. Less than 50% stenosis of the ICA bilaterally. The flow in the vertebra arteries is antegrade bilaterally. [facility] (06/26/2006) E chocardiogram: TDS. Normal LV systolic function EF 65%. LVH. Dilated LV. Moderate LAE. Trace MR. Trace TR with PA pressure of 21mmHg. [facility] (06/26/2006) Kvng Valverde MD : H er updated medication list for this problem includes: Coreg 3.125 Mg Tabs (Carvedilol) ..... Bid BP today: 127/78 Prior BP: / () N uclear Stress Findings: Test is considered to be negative by ECG criteria at 79% of target heart rate. [facility] (12/02/2008) C ardiac Cath: Normal coronary arteries. Mild antral hypokinesis with an EF of 50%. 2+ MR. [facility] (08/01/2006) C arotid Doppler/Duplex: Mild plaque is seen in the RCCA. Less than 50% stenosis of the ICA bilaterally. The flow in the vertebra arteries is antegrade bilaterally. [facility] (06/26/2006) E chocardiogram: TDS. Normal LV systolic function EF 65%. LVH. Dilated LV. Moderate LAE. Trace MR. Trace TR with PA pressure of 21mmHg. [facility] (06/26/2006) Kvng Valverde MD : H er updated medication list for this problem includes: Coreg 3.125 Mg Tabs (Carvedilol) ..... Bid BP today: 127/78 Prior BP: / () N uclear Stress Findings: Test is considered to be negative by ECG criteria at 79% of target heart rate. [facility] (12/02/2008) C ardiac Cath: Normal coronary arteries. Mild antral hypokinesis with an EF of 50%. 2+ MR. [facility] (08/01/2006) C arotid Doppler/Duplex: Mild plaque is seen in the RCCA. Less than 50% stenosis of the ICA bilaterally. The flow in the vertebra arteries is antegrade bilaterally. [facility] (06/26/2006) Orders: E KG (CPT-01890) Kvng Valverde MD Date Name HEMOGLOBIN A1c TSH, free T4, total T3 PROBNP, N TERMINAL LIPID PANEL COMPREHENSIVE METABO LIC PANEL, W/EGFR IRON AND TOTAL IRON BINDING CAPACITY FERRITIN CBC (INCLUDES DIFF/P LT) Monitor - Telemetry (Mobile Cardiac) Complete Echo Carotid Duplex Bilat eral Carotid Duplex Bilat eral MARIBEL - [facility] Venous Doppler Unila teral RLE Venous Doppler Unila teral LLE Venous Doppler Unila teral RLE Venous Doppler Unila teral LLE Arterial Duplex to r /o pseudoanuerysm VenaSeal Venous Doppler Bilat eral LE - Reflux RPM Enroll: BP RPM (remote patient monitoring) Complete Echo DLCO - 40077 FRC - 90039 FVC - 72878 Carotid Duplex Bilat eral CXR- PA/Lat Carotid [...] completed FVC / MVV with bronchodilator - 01864 Kvng Valverde MD completed BLOOD COUNT HEMOGLOBIN Kvng Valverde MD completed FRC - 17210 Kvng Valverde MD complete d SpO2 w/o 6min walk/titration Kvng Valverde MD completed SVC - 27474 Kvng Valverde MD complete d DLCO - 43128 Kvng Valverde MD complet ed EKG Kvng Valverde MD completed EKG Kvng Valverde MD completed EKG Kvng Valverde MD completed EKG Kvng Valverde MD completed EKG Kvng Valverde MD completed SNOMED-CT: 95407859 Physical Exam, Performed: Pulse Exam of Foot Kvng Valverde MD completed SNOMED-CT: 698236695 874633 Current Medications Documented Kvng Valverde MD completed SNOMED-CT: 116153592 965215 Current Medications Documented Kvng Valverde MD completed SNOMED-CT: 505292271 842853 Current Medications Documented Kvng Valverde MD completed SNOMED-CT: 55044554 Physical Exam, Performed: Pulse Exam of Foot Kvng Valverde MD completed SNOMED-CT: 76819829 Physical Exam, Performed: Pulse Exam of Foot Kvng Valverde MD completed EKG Kvng Valverde MD completed SNOMED-CT: 194309874 897451 Current Medications Documented Kvng Valverde MD completed SNOMED-CT: 61926716 Physical Exam, Performed: Pulse Exam of Foot Kvng Valverde MD completed SNOMED-CT: 667854275 476071 Current Medications Documented Kvng Valverde MD completed SNOMED-CT: 22696809 Physical Exam, Performed: Pulse Exam of Foot Kvng Valverde MD completed SNOMED-CT: 353935494 601162 Current Medications Documented Kvng Valverde MD completed SNOMED-CT: 79141951 Physical Exam, Performed: Pulse Exam of Foot Kvng Valverde MD completed EKG Kvng Valverde MD completed SNOMED-CT: 085694305 023780 Current Medications Documented Kvng Valverde MD completed EKG Kvng Valverde MD completed EKG Mook Green MD complete d EKG Kvng Valverde MD completed EKG Kvng Valverde MD completed
--- OUTSIDE RECORDS SUMMARY | 2024-11-06 11:15 | XMS_ITS | Referral Summary ---
Author Organization [facility] Address [address] [place] [address] Phone Care Team Providers Care Crop And Soil Technician Name Role Phone Maurice Daniels MD Primary Care Provider Jeremias Grewal MD Unavailable [phone] Brennen Maldonado MD Unavailable Alonso Antunez DNP Unavailable Dejuan Butterfield MD Unavailable [phone] John Avila MD Unavailable Vin Oliver MD Unavailable [phone] Kvng Valverde MD Unavailable Prabhu Harp NP Unavailable Ary Spangler OT Unavailable Encounters Date Type Department Care Team Description 11/05/2024 2:30 PM CDT Therapy [facility] Occupational Therapy [address] [place] [address] Ary Spangler OT Cortical visual impairment (Primary Dx) 10/22/2024 12:41 AM PUBLIC RELATIONS ASSOCIATE - 10/22/2024 11:06 AM [facility] Emergency [facility] Emergency Department [address] [place] [address] Masood Gibson MD COVID-19 virus infection (Primary Dx); Chronic nausea; Chronic abdominal pain; Hypertension, unspecified type Discharge Disposition: Discharge to home or self care 10/01/2024 2:30 PM PUBLIC RELATIONS ASSOCIATE Therapy [facility] Occupational [address] [address] Ary Spnagler OT Cortical visual impairment (Primary Dx) 09/24/2024 9:00 AM PUBLIC RELATIONS ASSOCIATE Therapy [address] [address] Ary Spangler OT Cortical visual impairment (Primary Dx) 09/11/2024 Plan of Care Documentation [facility] Occupational [address] [address] 09/10/2024 10:00 AM PUBLIC RELATIONS ASSOCIATE Therapy [facility] Occupational [address] [address] Ary Spangler OT Cortical visual impairment (Primary [...] (12/04/2018): Added automatically from request for surgery [id number] Immunizations Immunization Administration Dates Next Due Influenza, [...] on file Legal Sex Female 5:26 AM PUBLIC RELATIONS ASSOCIATE Gender Identity Not on file Sexual Orientation Not on file Last Filed Vital Signs Vital Sign Reading Time Taken Comments Blood Pressure 149/48 10/22/2024 9:30 AM PUBLIC RELATIONS ASSOCIATE Pulse 55 10/22/2024 10:45 AM PUBLIC RELATIONS ASSOCIATE Temperature 37.1 C (98.7 F) 10/21/2024 11:26 PM PUBLIC RELATIONS ASSOCIATE Respiratory Rate 16 10/22/2024 10:45 AM PUBLIC RELATIONS ASSOCIATE Oxygen Saturation 100% 10/22/2024 10:45 AM PUBLIC RELATIONS ASSOCIATE Inhaled Oxygen Concentration - - Weight 100.7 kg (222 lb) 07/16/2024 10:31 AM PUBLIC RELATIONS ASSOCIATE Height 157.5 cm (5' 2 ) 07/16/2024 10:31 AM PUBLIC RELATIONS ASSOCIATE Body Mass Index 40.6 07/16/2024 10:31 AM PUBLIC RELATIONS ASSOCIATE Plan of Treatment Not on file Medical Devices Implanted Type Area Digital Photo Printer Device Identifier Shelf Expiration Date Model / Serial / Lot [employer] [id number] Inspiris Resilia Leaflet Sewing Ring 21mm Valve Aortic Bovine - [id number] - [id number] Implanted:Qty: 1 on 01/18/2019 by Jeremias Grewal MD at [facility] N/A: Heart [employer] 09/06/2020 [id number] / [id number] / Description:Aortic Valve Procedures Procedure Name Priority Date/Time Associated Diagnosis Comments [place] CRITICAL CARE ILL/INJURED PATIENT INIT 30-74 MIN Routine 10/22/2024 10:45 AM PUBLIC RELATIONS ASSOCIATE POCT GLUCOSE DEVICE Routine 10/22/2024 8 :[address] ABDOMEN PELVIS W CONTRAST ED 10/22/2024 8:46 AM PUBLIC RELATIONS ASSOCIATE URINALYSIS AND REFLEX TO MICROSCOPIC AND CULTURE STAT 10/22/2024 8:34 AM PUBLIC RELATIONS ASSOCIATE RESPIRATORY PATHOGEN PANEL STAT 10/22/2024 8:04 AM PUBLIC RELATIONS ASSOCIATE LIPASE Add-On 10/22/2024 1:59 AM PUBLIC RELATIONS ASSOCIATE TROPONIN T HIGH-SENSITIVITY 2-HOUR Timed 10/22/2024 1:59 AM PUBLIC RELATIONS ASSOCIATE XR CHEST 1 VIEW ED 10/22/2024 12:40 AM PUBLIC RELATIONS ASSOCIATE EGFR STAT 10/21/2024 11:34 PM PUBLIC RELATIONS ASSOCIATE DIFFERENTIAL AUTO STAT 10/21/2024 11: 34 PM PUBLIC RELATIONS ASSOCIATE TROPONIN T HIGH-SENSITIVITY SERIES (BASELINE, 2HR, 4HR, 6HR) STAT 10/21/2024 11:34 PM PUBLIC RELATIONS ASSOCIATE COMPREHENSIVE METABOLIC PANEL STAT 10/21/2024 11:34 PM PUBLIC RELATIONS ASSOCIATE CBC WITH AUTO DIFFERENTIAL STAT 10/21/2024 11:34 PM PUBLIC RELATIONS ASSOCIATE ECG 12-LEAD Routine 10/21/2024 11:29 PM PUBLIC RELATIONS ASSOCIATE LIPID PANEL Routine 01/20/2019 2:19 AM CDT HEMOGLOBIN A1C Routine 12/31/2018 1:30 PM CDT Preop testing from Last 3 Months or Most Recently Relevant to Health Maintenance Results * [facility] CRITICAL CARE ILL/INJURED PATIENT INIT 30-74 MIN (10/22/2024 10:45 AM PUBLIC RELATIONS ASSOCIATE) Narrative Masood Gibson MD - 10/22/2024 10:45 AM PUBLIC RELATIONS ASSOCIATE Masood Gibson MD 11/04/2024 7:33 PM Critical [...] Result * POCT glucose (10/22/2024 8:54 AM PUBLIC RELATIONS ASSOCIATE) Glucose, POC 87 70 - 199 mg/dL Blood 10/22/2024 8:54 AM PUBLIC RELATIONS ASSOCIATE 10/22/2024 8:54 AM PUBLIC RELATIONS ASSOCIATE us Masood Gibson MD LAB POCT ORDERABLES - SUKH CE Final Result [facility] [address] Department [place] [address] * CT Abdomen Pelvis W Contrast (10/22/2024 8:46 AM PUBLIC RELATIONS ASSOCIATE) Anatomical Region Laterality Modality Body N/A Computed Tomogra phy 10/22/2024 9:20 AM PUBLIC RELATIONS ASSOCIATE Impressions 10/22/2024 9:20 AM PUBLIC RELATIONS ASSOCIATE NO ACUTE INTRA-ABDOMINAL FINDINGS Electronically signed by: Larry Eng M.D. Narrative 10/22/2024 9:20 AM PUBLIC RELATIONS ASSOCIATE EXAMINATION: CT ABDOMEN PELVIS W CONTRAST DATE: [...] microscopic and culture Urine (10/22/2024 8:34 AM PUBLIC RELATIONS ASSOCIATE) Color, ur Yellow Yellow Clarity, ur Clear [...] tendency for uric acid stone formation. Source: [facility] Current Interpretive Data was last revised on [...] met. CERNER CH Urine 10/22/2024 8:34 AM PUBLIC RELATIONS ASSOCIATE 10/22/2024 8:39 AM PUBLIC RELATIONS ASSOCIATE Masood Gibson MD LAB MICROBIOLOGY - GENERAL ORDERABLES Final Result [facility] [address] Department [place] [address] * (ABNORMAL) Respiratory pathogen panel Nasopharyngeal (10/22/2024 8:04 AM PUBLIC RELATIONS ASSOCIATE) Pathologist [facility] Influenza A RNA Not Detected Not Detected [...] Not Detected CERNER Comment: Interpretive Data The Kitware FilmArray Respiratory Panel (RP2.1) assay is a [...] assay has FDA clearance for testing of [employer]ER swabs. The performance characteristics of this assay have been determined by [facility]. Current interpretive data was last revised on 2021. Nasopharyngeal 10/22/2024 8: 04 AM PUBLIC RELATIONS ASSOCIATE 10/22/2024 8:06 AM PUBLIC RELATIONS ASSOCIATE Narrative [facility] - 10/22/2024 9:05 AM PUBLIC RELATIONS ASSOCIATE Is the Patient experiencing symptoms consistent with COVID?->Yes Surveillance testing for transplant patient?->No Masood Gibson MD LAB MICROBIOLOGY - GENERAL ORDERABLES Final Result [facility] [address] Department [place] [address] * Troponin T high-sensitivity 2-hour (10/22/2024 1:59 AM PUBLIC RELATIONS ASSOCIATE) Trop T hs 11 <=14 ng/L Comment: Interpretive Data For further hscTnT resources including the diagnostic algorithm and an aid in interpretation, copy and paste this link: https://nrl.testcatalog.org/show/hsTrop Current Interpretive Data last revised 2020. Trop T hs delta 0 ng/L [facility] Trop T hs interp Insignificant [facility] Blood 10/22/2024 1:59 AM PUBLIC RELATIONS ASSOCIATE 10/22/2024 2:02 AM PUBLIC RELATIONS ASSOCIATE Osbaldo Cade MD LAB BLOOD ORDERABLES Final Result Performing Organization Address City/[facility] [place] [address] [address] Department [place] [address] * Lipase (10/22/2024 1:59 AM PUBLIC RELATIONS ASSOCIATE) Lipase 40 10 - 99 Units/L Blood 10/22/2024 1:59 AM PUBLIC RELATIONS ASSOCIATE 10/22/2024 2:02 AM PUBLIC RELATIONS ASSOCIATE Robin GLORIA LAB BLOOD ORDERABLES Final Result Performing Organization Address [facility] [place] [address] [address] Department [place] [address] * XR Chest 1 Vw Portable (10/22/2024 12:40 AM PUBLIC RELATIONS ASSOCIATE) Anatomical Region Laterality Modality Body, Chest N/A Computed Radiogr aphy 10/22/2024 9:01 AM PUBLIC RELATIONS ASSOCIATE Impressions 10/22/2024 9:01 AM PUBLIC RELATIONS ASSOCIATE No acute cardiopulmonary findings. Electronically signed by: Danie Betancourt II, D.O. Narrative 10/22/2024 9:01 AM PUBLIC RELATIONS ASSOCIATE EXAMINATION: XR CHEST 1 VIEW DATE: 10/22/2024 [...] (baseline, 2hr, 4hr, 6hr) (10/21/2024 11:34 PM PUBLIC RELATIONS ASSOCIATE) Trop T hs 11 <=14 ng/L Comment: Interpretive Data For further hscTnT resources including the diagnostic algorithm and an aid in interpretation, copy and paste this link: https://nrl.testcatalog.org/show/hsTrop Current Interpretive Data last revised 2020. Blood 10/21/2024 11:3 4 PM PUBLIC RELATIONS ASSOCIATE 10/21/2024 11:39 PM PUBLIC RELATIONS ASSOCIATE us Osbaldo Cade MD LAB BLOOD ORDERABLES Final Result [facility] [address] Department of Laboratories [place] [id number] * eGFR (10/21/2024 11:34 PM PUBLIC RELATIONS ASSOCIATE) eGFR 71 >=60 mL/min/1. 73 m2 Comment: [...] reviewed 2021. Blood 10/21/2024 11:3 4 PM PUBLIC RELATIONS ASSOCIATE 10/21/2024 11:39 PM PUBLIC RELATIONS ASSOCIATE us Osbaldo Cade MD LAB BLOOD ORDERABLES Final Result [facility] [address] Department [place] [address] * Differential, auto (10/21/2024 11:34 PM PUBLIC RELATIONS ASSOCIATE) Neutrophil abs 5.3 1.5 - 6.5 K/cumm Imm gran abs 0.0 0.0 - 0.1 K/cumm [facility] Lymphocyte abs 3.3 0.8 - 3.3 K/cumm [facility] Monocyte abs 0.7 0.2 - 0.8 K/cumm [facility] Eosinophil abs 0.3 0.0 - 0.5 K/cumm [facility] Basophil abs 0.0 0.0 - 0.1 K/cumm [facility] Neutrophil pct 54.8 % [facility] Comment: Interpretive Data Percent cell count reference ranges are not reported, since discordance with absolute values may lead to misinterpretation of CBC data. Current Interpretive Data was last revised on 2017. Imm gran pct 0.3 % [facility] Comment: Interpretive Data Percent cell count reference ranges are not reported, since discordance with absolute values may lead to misinterpretation of CBC data. Current Interpretive Data was last revised on 2017. Lymphocyte pct 34.3 % [facility] Comment: Interpretive Data Percent cell count reference ranges are not reported, since discordance with absolute values may lead to misinterpretation of CBC data. Current Interpretive Data was last revised on 2017. Monocyte pct 7.1 % [facility] Comment: Interpretive Data Percent cell count reference ranges are not reported, since discordance with absolute values may lead to misinterpretation of CBC data. Current Interpretive Data was last revised on 2017. Eosinophil pct 3.3 % [facility] Comment: Interpretive Data Percent cell count [...] on 2017. Blood 10/21/2024 11:3 4 PM PUBLIC RELATIONS ASSOCIATE 10/21/2024 11:39 PM PUBLIC RELATIONS ASSOCIATE Osbaldo Cade MD LAB BLOOD ORDERABLES Final Result Performing Organization Address City/[facility]/ZIP Co de Phone Number [facility] [address] [employer] [place] [address] * (ABNORMAL) CBC with auto differential (10/21/2024 11:34 PM PUBLIC RELATIONS ASSOCIATE) WBC 9.7 3.8 - 9.9 K/cumm Hgb 10.0(L) 11.9 - 15.5 g/dL C[facility] CH Hct 32.4(L) 35.6 - 45.5 % CERNER Plt 242 150 - 400 K/cumm [facility] MPV 10.0 9.1 - 12.3 fL [facility] RBC 4.38 3.90 - 5.20 M/cumm CERNER MCV 74.0(L) 81.3 - 96.4 fL [facility] MCH 22.8(L) 27.1 - 33.3 pg CERNER MCHC 30.9(L) 32.3 - 35.7 g/dL CERNER RDW CV 15.4(H) 11.1 - 14.9 % CERNER CH RDW SD 41.5 35.7 - 48.1 fL [facility] NRBC abs 0.00 0.00 - 0.01 K/cumm [facility] Blood 10/21/2024 11:3 4 PM PUBLIC RELATIONS ASSOCIATE 10/21/2024 11:39 PM PUBLIC RELATIONS ASSOCIATE us Osbaldo Cade MD LAB BLOOD ORDERABLES Final Result Performing Organization Address City/[facility]/ZIP Co de Phone Number [facility] [address] Department [place] [address] * Comprehensive metabolic panel (10/21/2024 11:34 PM PUBLIC RELATIONS ASSOCIATE) Sodium 139 135 - 145 mmol/L Potassium, [...] CERNER CH Blood 10/21/2024 11:3 4 PM PUBLIC RELATIONS ASSOCIATE 10/21/2024 11:39 PM PUBLIC RELATIONS ASSOCIATE us Osbaldo Cade MD LAB BLOOD ORDERABLES Final Result [facility] [address] Department [place] [address] * ECG 12 lead (10/21/2024 11:29 PM PUBLIC RELATIONS ASSOCIATE) 10/21/2024 11:2 9 PM PUBLIC RELATIONS ASSOCIATE Narrative [facility] - 10/22/2024 11:20 AM PUBLIC RELATIONS ASSOCIATE Vent Rate: 61 bpm RR Interval: 982 msec MT Interval: 194 msec QRS Duration: 101 msec QT Interval: 390 msec QTC Interval: 392 msec P-R-T Mounds: 31 - 0 - 51 degrees IMPRESSION: SINUS RHYTHM NORMAL ECG Electronically Signed By: Isac Souza MD us Osbaldo Cade MD ECG ORDERABLES Final Resul t [facility] * Lipid panel (01/20/2019 2:19 AM [...] 2018. LDL, calculated 31 <=129 mg/dL [facility] J[facility]ON Comment: Interpretive Data Ages < or = [...] MD LAB BLOOD ORDERABLES Final Resu lt [facility] [address] Department [place] [address] * (ABNORMAL) Hemoglobin A1c (12/31/2018 1:30 PM CDT) Hgb A1C 7.6(H) 4.0 - 5.6 % [facility] Estimated Average Glucose 171 mg/dL [facility] Comment: The ADA recommends reporting an estimated Average Glucose (eAG) with all Hemoglobin A1c results using the equation derived from a study of 507 normal and diabetic adults. Minority populations were underrepresented and children were not included. (Diabetes Care 31:2942-2262, 2008). The eAG is not equivalent to a fasting glucose. Blood specimen (specimen) 12/31/2018 1:30 PM CDT 12/31/2018 3:16 PM CDT Narrative [facility] - 12/31/2018 5:03 PM CDT Jeremias Grewal MD LAB BLOOD ORDERABLES Final R esult [facility] [address] Department [place] [address] from Last 3 Months or Most Recently Relevant to Health Maintenance Additional Health Concerns Infection Onset Date Last Indicated COVID: Recovered Comment:Added based on recent COVID infection. 11/01/2024 025 Insurance MEDICARE [facility] MEDICARE [facility] MEDICARE MEDICARE [facility] Advance Directives For more information, please contact: [phone] * Full Code (Latest Code Status on File) Date Activated Date Inactivated Comments 01/29/2019 6:44 PM 02/08/2019 10:55 PM * Full Code Date Activated Date Inactivated Comments 01/18/2019 2:27 PM 01/29/2019 6:14 PM Care Teams Crop And Soil Technician Relationship Specialty Start Date End Date Maurice Daniels MD PCP - General 12/05/17 Jeremias Grewal MD Surgeon Cardiothoracic Surgery 10/07/19 Brennen Maldonado MD [address] [place] [address] Consulting Physician Hematology and Oncology 05/18/23 Alonso Antunez DNP [address] [place] [address] Nurse Practitioner Hematology and Oncology 05/18/23 Dejuan Butterfield MD [address] [facility] [address] [place] [address] Referring Physician Ophthalmology 01/11/24 John Avila MD [address] [facility] [address] [place], [place] [address] Referring Physician Obstetrics and Gynecology 05/27/24 Vin Oliver MD [address] [facility] [place] [address] Referring Physician Psychiatry 05/27/24 [place] [address] [facility] [address] [place] [address] Consulting Physician Cardiology 05/27/24 Prabhu Harp NP [address] [facility] [address] [facility] [address] [place] [address] Nurse Practitioner Sleep Medicine 05/27/24 Ary Spangler OT [address] [facility] [address] [facility] [address] [place], [place] [address] Occupational Therapist Occupational Therapy 09/10/24
--- OUTSIDE RECORDS SUMMARY | 2024-11-06 11:15 | XMS_ITS | Encounter Summary ---
Author Organization [facility] Address [address] [place] [address] Phone Care Team Providers Care Ethylbenzene Oxidizer Name Role Phone Maurice Daniels MD Primary Care Provider Jeremias Grewal MD Unavailable [phone] Brennen Maldonado MD Unavailable [phone] Alonso Antunez DNP Unavailable [phone] Dejuan Butterfield MD Unavailable [phone] John Avila MD Unavailable [phone] Vin Oliver MD Unavailable [phone] Kvng Valverde MD Unavailable Prabhu Harp NP Unavailable Ary Spangler OT Unavailable [phone] Reason for Visit * Reason Comments OT Treatment * Consultation (Routine) - Authorized Specialty Diagnoses / Procedures Referred By Contac t Referred To Contact Occupational Therapy Diagnoses Cortical visual impairment Shavon Gilman MD [address] [facility] [address] [place] [address] Phone: tel: fax: [facility] Occupational Therapy [address] [place] [address] Phone: tel: fax:[phone] Referral ID Status Reason Start Date Expiration Date Visits Requested Visits Authorized [id number] Authorized Evaluate and Treat 05/31/2024 06/30/2025 24 24 Encounter Details Date Type Department Care Team (Late st Contact Info) Description 11/05/2024 2:30 PM CDT Therapy [facility] Occupational Therapy [address] [place] [address] Ary Spangler, OT [address] [place] [address] Cortical visual impairment (Primary Dx) Social History [...] on file Legal Sex Female 5:26 AM SPREADER Gender Identity Not on file Sexual Orientation [...] documented as of this encounter Care Teams Ethylbenzene Oxidizer Relationship Specialty Start Date End Date Maurice Daniels MD PCP - General 12/05/17 Jeremias Grewal MD Surgeon Cardiothoracic Surgery 10/07/19 Brennen Maldonado MD [address] [place] [address] Consulting Physician Hematology and Oncology 05/18/23 Alonso Antunez DNP [address] [place] [address] Nurse Practitioner Hematology and Oncology 05/18/23 Dejuan Butterfield MD [address] [facility] [address] [place] [address] Referring Physician Ophthalmology 01/11/24 John Avila MD [address] [facility] [address] [place], [place] [address] Referring Physician Obstetrics and Gynecology 05/27/24 Vin Oliver MD [address] [place] [address] [address] [place], [place] [id number] Referring Physician Psychiatry 05/27/24 [place] [address] [facility] [address] [place] [address] Consulting Physician Cardiology 05/27/24 Prabhu Harp NP [address] [facility] [address] [facility] [address] [place] [address] Nurse Practitioner Sleep Medicine 05/27/24 Ary Spangler OT [address] [facility] [address] [facility] [address] [place] [address] Occupational Therapist Occupational Therapy 09/10/24 documented as of this encounter
--- OUTSIDE RECORDS SUMMARY | 2024-11-06 11:15 | XMS_ITS | Clinical Summary ---
Author Organization [facility] Address [address] [facility] [place] [address] Care Team Providers Care Scaffolder Name Role Phone Maurice Daniels MD Primary Care Provider [phone] Source Comments [facility] Affiliates and Associated Physician Practices is amultiple site organization consisting of ambulatory clinics and hospital sitesin [place], [place], [place] and [place]. This disclosure is being madepursuant to the Care Everywhere program and may not contain all information available regarding this patient. Last updated 18.[facility] Allergies Active Allergy Reactions Criticality Noted Date [...] 103.4 kg (228 lb) 08/26/2019 8:04 AM REVIVAL CLERK Height 157.5 cm (5' 2 ) 08/26/2019 8:04 AM REVIVAL CLERK Body Mass Index 41.7 08/26/2019 8:04 AM REVIVAL CLERK Plan of Treatment Health Maintenance Due Date [...] age to complete this topic Care Teams Scaffolder Relationship Specialty Start Date End Date Maurice Daniels MD [address] [address] PCP - General Internal Medicine 08/01/19
--- OUTSIDE RECORDS SUMMARY | 2024-11-06 11:15 | XMS_ITS | Clinical Summary ---
Author Organization [facility] Address [address] [place] [address] Phone Care Team Providers Care Senior Chemical Process Engineer Name Role Phone Maurice Daniels MD Primary Care Provider Jeremias Grewal MD Unavailable Brennen Maldonado MD Unavailable Alonso Antunez DNP Unavailable Dejuan Butterfield MD Unavailable [phone] John Avila MD Unavailable Vin Oliver MD Unavailable Kvng Valverde MD Unavailable Prabhu Harp NP Unavailable Ary Spangler OT Unavailable [phone] Allergies Active Allergy Reactions Criticality Noted Date [...] (12/04/2018): Added automatically from request for surgery [id number] Encounters Date Type Department Care Team Description 11/05/2024 2:30 PM CDT Therapy [facility] Occupational Therapy [address] [place] [phone] Ayr Spangler OT Cortical visual impairment (Primary Dx) 10/22/2024 12:41 AM TORTS LAW PROFESSOR - 10/22/2024 11:06 AM TORTS LAW PROFESSOR Emergency [facility] Emergency Department [address] [place] [address] Masood Gibson MD COVID-19 virus infection (Primary Dx); Chronic nausea; Chronic abdominal pain; Hypertension, unspecified type Discharge Disposition: Discharge to home or self care 10/01/2024 2:30 PM TORTS LAW PROFESSOR Therapy [facility] Occupational Therapy [address] [place] [phone] Ary Spangler OT Cortical visual impairment (Primary Dx) 09/24/2024 9:00 AM TORTS LAW PROFESSOR Therapy [facility] Occupational [address] [phone] Ary Spangler OT Cortical visual impairment (Primary Dx) 09/11/2024 Plan of Care Documentation [facility] Occupational Therapy [address] [place] [phone] 09/10/2024 10:00 AM TORTS LAW PROFESSOR Therapy [facility] Occupational [address] [phone] Ary Spangler OT Cortical visual impairment (Primary [...] on file Legal Sex Female 5:26 AM TORTS LAW PROFESSOR Gender Identity Not on file Sexual Orientation Not on file Obstetrics History Last Filed Vital Signs Vital Sign Reading Time Taken Comments Blood Pressure 149/48 10/22/2024 9:30 AM TORTS LAW PROFESSOR Pulse 55 10/22/2024 10:45 AM TORTS LAW PROFESSOR Temperature 37.1 C (98.7 F) 10/21/2024 11:26 PM TORTS LAW PROFESSOR Respiratory Rate 16 10/22/2024 10:45 AM TORTS LAW PROFESSOR Oxygen Saturation 100% 10/22/2024 10:45 AM TORTS LAW PROFESSOR Inhaled Oxygen Concentration - - Weight 100.7 kg (222 lb) 07/16/2024 10:31 AM TORTS LAW PROFESSOR Height 157.5 cm (5' 2 ) 07/16/2024 10:31 AM TORTS LAW PROFESSOR Body Mass Index 40.6 07/16/2024 10:31 AM TORTS LAW PROFESSOR Plan of Treatment Health Maintenance Due Date [...] 06/06/2018, 07/06/2016 Medical Devices Implanted Type Area Election Clerk Device Identifier Shelf Expiration Date Model / Serial / Lot [employer] [id number] Inspiris Resilia Leaflet Sewing Ring 21mm Valve Aortic Bovine - [id number] - [id number] Implanted:Qty: 1 on 01/18/2019 by Jeremias Grewal MD at [facility] N/A: Heart [employer] 09/06/2020 [id number] / [id number] / Description:Aortic Valve Procedures Procedure Name Priority Date/Time Associated Diagnosis Comments [place] CRIT[facility] C[facility] ILL/INJURED PATIENT INIT 30-74 MIN Routine 10/22/2024 10:45 AM TORTS LAW PROFESSOR POCT GLUCOSE DEVICE Routine 10/22/2024 8 :[address] ABDOMEN PELVIS W CONTRAST ED 10/22/2024 8:46 AM TORTS LAW PROFESSOR URINALYSIS AND REFLEX TO MICROSCOPIC AND CULTURE STAT 10/22/2024 8:34 AM TORTS LAW PROFESSOR RESPIRATORY PATHOGEN PANEL STAT 10/22/2024 8:04 AM TORTS LAW PROFESSOR LIPASE Add-On 10/22/2024 1:59 AM TORTS LAW PROFESSOR TROPONIN T HIGH-SENSITIVITY 2-HOUR Timed 10/22/2024 1:59 AM TORTS LAW PROFESSOR XR CHEST 1 VIEW ED 10/22/2024 12:40 AM TORTS LAW PROFESSOR EGFR STAT 10/21/2024 11:34 PM TORTS LAW PROFESSOR DIFFERENTIAL AUTO STAT 10/21/2024 11: 34 PM TORTS LAW PROFESSOR TROPONIN T HIGH-SENSITIVITY SERIES (BASELINE, 2HR, 4HR, 6HR) STAT 10/21/2024 11:34 PM TORTS LAW PROFESSOR COMPREHENSIVE METABOLIC PANEL STAT 10/21/2024 11:34 PM TORTS LAW PROFESSOR CBC WITH AUTO DIFFERENTIAL STAT 10/21/2024 11:34 PM TORTS LAW PROFESSOR ECG 12-LEAD Routine 10/21/2024 11:29 PM TORTS LAW PROFESSOR LIPID PANEL Routine 01/20/2019 2:19 AM CDT HEMOGLOBIN A1C Routine 12/31/2018 1:30 PM CDT Preop testing from Last 3 Months or Most Recently Relevant to Health Maintenance Results * [place] CRIT[facility] C[facility] ILL/INJURED PATIENT INIT 30-74 MIN (10/22/2024 10:45 AM TORTS LAW PROFESSOR) Masood Mahoney MD - 10/22/2024 10:45 AM TORTS LAW PROFESSOR Masood Gibson MD 11/04/2024 7:33 PM Critical [...] Result * POCT glucose (10/22/2024 8:54 AM TORTS LAW PROFESSOR) Glucose, POC 87 70 - 199 mg/dL Blood 10/22/2024 8:54 AM TORTS LAW PROFESSOR 10/22/2024 8:54 AM TORTS LAW PROFESSOR us Masood Gibson MD LAB POCT ORDERABLES - SUKH CE Final Result [facility] [address] [place] [address] * CT Abdomen Pelvis W Contrast (10/22/2024 8:46 AM TORTS LAW PROFESSOR) Anatomical Region Laterality Modality Body N/A Computed Tomogra phy 10/22/2024 9:20 AM TORTS LAW PROFESSOR Impressions 10/22/2024 9:20 AM TORTS LAW PROFESSOR NO ACUTE INTRA-ABDOMINAL FINDINGS Electronically signed by: Larry Eng M.D. Narrative 10/22/2024 9:20 AM TORTS LAW PROFESSOR EXAMINATION: CT ABDOMEN PELVIS W CONTRAST DATE: [...] microscopic and culture Urine (10/22/2024 8:34 AM TORTS LAW PROFESSOR) Color, ur Yellow Yellow Clarity, ur Clear [...] tendency for uric acid stone formation. Source: [facility] Current Interpretive Data was last revised on [...] met. CERNER CH Urine 10/22/2024 8:34 AM TORTS LAW PROFESSOR 10/22/2024 8:39 AM TORTS LAW PROFESSOR Masood Gibson MD LAB MICROBIOLOGY - GENERAL ORDERABLES Final Result [facility] [address] [place] [address] * (ABNORMAL) Respiratory pathogen panel Nasopharyngeal (10/22/2024 8:04 AM TORTS LAW PROFESSOR) Influenza A RNA Not Detected Not Detected CH Influenza B RNA Not Detected Not Detected CERNER RSV RNA Not Detected Not Detected CERNER COVID-19 RNA Detected(A) Not Detected [facility] Coronavirus 229E RNA Not Detected Not Detected [facility] Coronavirus HKU1 RNA Not Detected Not Detected [facility] Coronavirus NL63 RNA Not Detected Not Detected [facility] Coronavirus OC43 RNA Not Detected Not Detected [facility] Adenovirus DNA Not Detected Not Detected [facility] Metapneumovirus RNA Not Detected Not Detected [facility] Rhinovirus/Enterov irus RNA Not Detected Not Detected [facility] Parainfluenza 1 RNA Not Detected Not Detected [facility] Parainfluenza 2 RNA Not Detected Not Detected [facility] Parainfluenza 3 RNA Not Detected Not Detected [facility] Parainfluenza 4 RNA Not Detected Not Detected [facility] B. pertussis DNA Not Detected Not Detected [facility] B. parapertussis DNA Not Detected Not Detected [facility] C. pneumoniae DNA Not Detected Not Detected [facility] M. pneumoniae DNA Not Detected Not Detected [facility] Comment: Interpretive Data The Texert FilmArray Respiratory Panel (RP2.1) assay is a [...] assay has FDA clearance for testing of PRIVATE DUTY NURSE swabs. The performance characteristics of this assay have been determined by [facility]. Current interpretive data was last revised on 2021. Nasopharyngeal 10/22/2024 8: 04 AM TORTS LAW PROFESSOR 10/22/2024 8:06 AM TORTS LAW PROFESSOR Narrative [facility] - 10/22/2024 9:05 AM TORTS LAW PROFESSOR Is the Patient experiencing symptoms consistent with COVID?->Yes Surveillance testing for transplant patient?->No Masood Gibson MD LAB MICROBIOLOGY - GENERAL ORDERABLES Final Result [facility] [address] [place] [address] * Troponin T high-sensitivity 2-hour (10/22/2024 1:59 AM TORTS LAW PROFESSOR) Trop T hs 11 <=14 ng/L Comment: Interpretive Data For further hscTnT resources including the diagnostic algorithm and an aid in interpretation, copy and paste this link: https://nrl.testcatalog.org/show/hsTrop Current Interpretive Data last revised 2020. Trop T hs delta 0 ng/L CERNER CH Trop T hs interp Insignificant CERNER CH Blood 10/22/2024 1:59 AM TORTS LAW PROFESSOR 10/22/2024 2:02 AM TORTS LAW PROFESSOR Osbaldo Cade MD LAB BLOOD ORDERABLES Final Result Performing Organization Address [facility] Co de Phone Number [facility] [address] [place] [address] * Lipase (10/22/2024 1:59 AM TORTS LAW PROFESSOR) Lipase 40 10 - 99 Units/L Blood 10/22/2024 1:59 AM TORTS LAW PROFESSOR 10/22/2024 2:02 AM TORTS LAW PROFESSOR Robin GLORIA LAB BLOOD ORDERABLES Final Result Performing Organization Address [facility] Phone Number [facility] [address] [place] [address] * XR Chest 1 Vw Portable (10/22/2024 12:40 AM TORTS LAW PROFESSOR) Anatomical Region Laterality Modality Body, Chest N/A Computed Radiogr aphy 10/22/2024 9:01 AM TORTS LAW PROFESSOR Impressions 10/22/2024 9:01 AM TORTS LAW PROFESSOR No acute cardiopulmonary findings. Electronically signed by: Danie Betancourt II, D.O. Narrative 10/22/2024 9:01 AM TORTS LAW PROFESSOR EXAMINATION: XR CHEST 1 VIEW DATE: 10/22/2024 [...] (baseline, 2hr, 4hr, 6hr) (10/21/2024 11:34 PM TORTS LAW PROFESSOR) Trop T hs 11 <=14 ng/L Comment: Interpretive Data For further hscTnT resources including the diagnostic algorithm and an aid in interpretation, copy and paste this link: https://nrl.testcatalog.org/show/hsTrop Current Interpretive Data last revised 2020. Blood 10/21/2024 11:3 4 PM TORTS LAW PROFESSOR 10/21/2024 11:39 PM TORTS LAW PROFESSOR Osbaldo Cade MD LAB BLOOD ORDERABLES Final Result [facility] [address] [place] [address] * eGFR (10/21/2024 11:34 PM TORTS LAW PROFESSOR) eGFR 71 >=60 mL/min/1. 73 m2 Comment: [...] reviewed 2021. Blood 10/21/2024 11:3 4 PM TORTS LAW PROFESSOR 10/21/2024 11:39 PM TORTS LAW PROFESSOR us Osbaldo Cade MD LAB BLOOD ORDERABLES Final Result [facility] [address] [place] [address] * Differential, auto (10/21/2024 11:34 PM TORTS LAW PROFESSOR) Neutrophil abs 5.3 1.5 - 6.5 K/cumm Imm gran abs 0.0 0.0 - 0.1 K/cumm CERNER CH Lymphocyte abs 3.3 0.8 - 3.3 K/cumm [facility] Monocyte abs 0.7 0.2 - 0.8 K/cumm [facility] Eosinophil abs 0.3 0.0 - 0.5 K/cumm [facility] Basophil abs 0.0 0.0 - 0.1 K/cumm [facility] Neutrophil pct 54.8 % [facility] Comment: Interpretive Data Percent cell count reference ranges are not reported, since discordance with absolute values may lead to misinterpretation of CBC data. Current Interpretive Data was last revised on 2017. Imm gran pct 0.3 % [facility] Comment: Interpretive Data Percent cell count reference ranges are not reported, since discordance with absolute values may lead to misinterpretation of CBC data. Current Interpretive Data was last revised on 2017. Lymphocyte pct 34.3 % [facility] Comment: Interpretive Data Percent cell count reference ranges are not reported, since discordance with absolute values may lead to misinterpretation of CBC data. Current Interpretive Data was last revised on 2017. Monocyte pct 7.1 % [facility] Comment: Interpretive Data Percent cell count reference [...] revised on 2017. Basophil pct 0.2 % [facility] Comment: Interpretive Data Percent cell count reference ranges are not reported, since discordance with absolute values may lead to misinterpretation of CBC data. Current Interpretive Data was last revised on 2017. Blood 10/21/2024 11:3 4 PM TORTS LAW PROFESSOR 10/21/2024 11:39 PM TORTS LAW PROFESSOR us Osbaldo Cade MD LAB BLOOD ORDERABLES Final Result [facility] [address] [place] [address] * (ABNORMAL) CBC with auto differential (10/21/2024 11:34 PM TORTS LAW PROFESSOR) WBC 9.7 3.8 - 9.9 K/cumm Hgb 10.0(L) 11.9 - 15.5 g/dL [facility] Hct 32.4(L) 35.6 - 45.5 % [facility] Plt 242 150 - 400 K/cumm [facility] MPV 10.0 9.1 - 12.3 fL [facility] RBC 4.38 3.90 - 5.20 M/cumm [facility] MCV 74.0(L) 81.3 - 96.4 fL [facility] MCH 22.8(L) 27.1 - 33.3 pg [facility] MCHC 30.9(L) 32.3 - 35.7 g/dL [facility] RDW CV 15.4(H) 11.1 - 14.9 % [facility] RDW SD 41.5 35.7 - 48.1 fL [facility] NRBC abs 0.00 0.00 - 0.01 K/cumm [facility] Blood 10/21/2024 11:3 4 PM TORTS LAW PROFESSOR 10/21/2024 11:39 PM TORTS LAW PROFESSOR us Osbaldo Cade MD LAB BLOOD ORDERABLES Final Result [facility] [address] [facility] [place] [address] * Comprehensive metabolic panel (10/21/2024 11:34 PM TORTS LAW PROFESSOR) Sodium 139 135 - 145 mmol/L Potassium, [...] CERNER CH Blood 10/21/2024 11:3 4 PM TORTS LAW PROFESSOR 10/21/2024 11:39 PM TORTS LAW PROFESSOR us Osbaldo Cade MD LAB BLOOD ORDERABLES Final Result [facility] [address] [address] Department [place] [address] * ECG 12 lead (10/21/2024 11:29 PM TORTS LAW PROFESSOR) 10/21/2024 11:2 9 PM TORTS LAW PROFESSOR Narrative [facility] - 10/22/2024 11:20 AM TORTS LAW PROFESSOR Vent Rate: 61 bpm RR Interval: 982 msec [place] Interval: 194 msec QRS Duration: 101 msec QT Interval: 390 msec QTC Interval: 392 msec P-R-T [place]: 31 - 0 - 51 degrees IMPRESSION: SINUS RHYTHM NORMAL ECG Electronically Signed By: Isac Souza MD us Osbaldo Cade MD ECG ORDERABLES Final Resul t [facility] * Lipid panel (01/20/2019 2:19 AM [...] ORDERABLES Final Resu lt Performing Organization Address [facility] Co de Phone Number [facility] [address] [facility] [place] [address] * (ABNORMAL) Hemoglobin A1c (12/31/2018 1:30 PM CDT) Hgb A1C 7.6(H) 4.0 - 5.6 % [facility] Estimated Average Glucose 171 mg/dL [facility] Comment: The ADA recommends reporting an estimated Average Glucose (eAG) with all Hemoglobin A1c results using the equation derived from a study of 507 normal and diabetic adults. Minority populations were underrepresented and children were not included. (Diabetes Care 31:2031-8935, 2008). The eAG is not equivalent to a fasting glucose. Blood specimen (specimen) 12/31/2018 1:30 PM CDT 12/31/2018 3:16 PM CDT Narrative [facility] - 12/31/2018 5:03 PM CDT Jeremias Grewal MD LAB BLOOD ORDERABLES Final R esult Performing Organization Address [facility] de Phone Number [facility] [address] [place] [address] from Last 3 Months or Most Recently Relevant to Health Maintenance Additional Health Concerns Infection Onset Date Last Indicated COVID: Recovered Comment:Added based on recent COVID infection. 11/01/2024 025 Insurance MEDICARE [place] MEDICARE [place] MEDICARE MEDICARE [facility] Advance Directives For more information, please contact: [phone] * Full Code (Latest Code Status on File) Date Activated Date Inactivated Comments 01/29/2019 6:44 PM 02/08/2019 10:55 PM * Full Code Date Activated Date Inactivated Comments 01/18/2019 2:27 PM 01/29/2019 6:14 PM Care Teams Senior Chemical Process Engineer Relationship Specialty Start Date End Date Maurice Daniels MD PCP - General 12/05/17 Jeremias Grewal MD Surgeon Cardiothoracic Surgery 10/07/19 Brennen Maldonado MD [address] [place] [address] Consulting Physician Hematology and Oncology 05/18/23 Alonso Antunez DNP [address] [place] [address] Nurse Practitioner Hematology and Oncology 05/18/23 Dejuan Butterfield MD [address] [facility] [address] [place] [address] Referring Physician Ophthalmology 01/11/24 John Avila MD [address] [facility] [address] [place] [address] Referring Physician Obstetrics and Gynecology 05/27/24 Vin Oliver MD [address] [facility] [place] [address] Referring Physician Psychiatry 05/27/24 [place] [address] [facility] [address] [place] [address] Consulting Physician Cardiology 05/27/24 Prabhu Harp NP [address] [facility] [address] [facility] [address] [place], [place] [id number] Nurse Practitioner Sleep Medicine 05/27/24 Ary Spangler OT [address] [facility] [address] [place], [place] [id number] Occupational Therapist Occupational Therapy 09/10/24
[2024-11-06 11:23] LABS: Thyroid Stimulating Hormone 0.793 uIU/mL (0.465-4.680)
[2024-11-06 11:25] LABS: Creatinine Urine 61.8 mg/dL
[2024-11-06 11:29] LABS: MALB Creatinine Ratio 10.2 mg/g (0-30); Microalbumin Urine Random 6.3 mg/L (0-16.7)
[2024-11-06 11:38] LABS: Free T4 Free Thyroxine 1.61 ng/dL (0.78-2.19)
[2024-11-07 16:29] LABS: Beef IgE (F27) <0.10 kU/L; Lamb (F88) IgE <0.10 kU/L; Lamb Class 0; Pork (F26) IgE <0.10 kU/L; Pork Class 0
[2024-11-09 15:48] LABS: Galactose Alpha 1,3 IgE <0.10 kU/L (<0.10)
== END 2024-11-06 09:59 | disposition home or self-care (01) ==
PROVIDERS: PCP Internal Medicine; Referring Provider Internal Medicine; Visit Provider Internal Medicine Gastroenterology
DX: R11.2 Nausea with vomiting, unspecified (principal); E66.9 Obesity, unspecified; R63.4 Abnormal weight loss; E11.65 Type 2 diabetes mellitus with hyperglycemia; Z91.018 Allergy to other foods
CPT/HCPCS: 36415; 80053; 80061; 82043; 84439; 84443; 85027; 86008

== ENCOUNTER 2024-12-13 08:14 | Outpatient (CLI) | payer MEDICARE, OTHER, SELFPAY ==
--- NOTE | ~2024-12-13 | NM_ITS ---
EXAM: NM gastric emptying study DATE: 12/13/2024 13:31 INDICATION: Nausea and vomiting TECHNIQUE: A gastric emptying study was performed using the methodology of Jessie NEWBY, et al. J Nucl Med 2007; 48:568-572. The patient was given a meal consisting of 2 scrambled eggs labeled with 1.039 mCi Tc-99m sulfur colloid, 2 slices of toast, two packages of jam, and approximately 120 mL of water . Simultaneous anterior and posterior 1-min images of the abdomen were obtained with the patient supi ne at multiple time points over a total period of 4 hours. The geometric mean of anterior and posteri or views was determined, and the percentage retention was calculated for each time point. COMPARISON: None. FINDINGS: Gastric retention of the radiotracer-labeled meal was 53%, 36%, and 8% at the 1-hour, 2-hour, and 4-h our time points, respectively. With this technique, apparent rapid gastric emptying is suggested by < 30% gastric retention at 1 hour. Delayed gastric emptying is defined by gastric retention of >90% at 1 hour, >60% retention at 2 hours, or >10% retention at 4 hours. IMPRESSION: 1. Normal gastric emptying. Reviewed, dictated and finalized at location A. IMPRESSION: 1. Normal gastric emptying.
--- OUTSIDE RECORDS SUMMARY | 2024-12-13 08:22 | XMS_ITS | Referral Summary ---
Author Organization [facility] Address [address] [place] [address] Phone Care Team Providers Care Battery Container Inspector Name Role Phone Maurice Daniels MD Primary Care Provider Jeremias Grewal MD Unavailable Brennen Maldonado MD Unavailable Alonso Antunez DNP Unavailable Dejuan Butterfield MD Unavailable [phone] John Avila MD Unavailable Vin Oliver MD Unavailable [phone] Kvng Valverde MD Unavailable Prabhu Harp NP Unavailable Ayr Spangler OT Unavailable Encounters Date Type Department Care Team Description 12/10/2024 9:00 AM CDT Therapy [facility] Occupational Therapy [address] [place] [address] Ary Spangler OT Cortical visual impairment (Primary Dx) 12/09/2024 8:30 AM CDT Office Visit [facility] Ophthalmology [address] [facility] 6th [place] [address] Romelia Ayoub MD Cortical visual impairment (Primary Dx) 11/26/2024 Plan of Care Documentation [facility] Occupational Therapy [address] [place] [phone] 11/26/2024 9:00 AM CDT Therapy [address] [address] Ary Spangler OT Cortical visual impairment (Primary Dx) 11/19/2024 9:00 AM CDT Therapy [facility] Occupational [address] [address] Ary Spangler OT Cortical visual impairment (Primary Dx) 11/05/2024 2:30 PM CDT Therapy [address] [address] Ary Spangler OT Cortical visual impairment (Primary Dx) 10/22/2024 12:41 AM WASHING MACHINE REPAIRER - 10/22/2024 11:06 AM [facility] Emergency Department [address] [place] [address] Masood Gibson MD COVID-19 virus infection (Primary Dx); Chronic nausea; Chronic abdominal pain; Hypertension, unspecified type Discharge Disposition: Discharge to home or self care 10/01/2024 2:30 PM WASHING MACHINE REPAIRER Therapy [facility] Occupational [address] [address] Ary Spangler OT Cortical visual impairment (Primary Dx) 09/24/2024 9:00 AM WASHING MACHINE REPAIRER Therapy [facility] Occupational [address] [address] Ary Spangler OT Cortical visual impairment (Primary [...] mouth nightly 30 tablet 3 9 Active lamoTRIgine (LaMICtal) 100 mg tablet Take 1 [...] (12/04/2018): Added automatically from request for surgery [id number] Immunizations Immunization Administration Dates Next Due Influenza, [...] pur e alcohol) AUDIT-C Answer Date Recorded Q1: How often do you have a drink containing alc ohol? Never 12/09/2024 Average Number of Drinks Not on file 025 Frequency of Binge Drinking Not on file 11/20 Personal Safety Answer Date Recorded Have you ever been in or are you currently in a harmful physical or emotional relationship or is someone making you feel afraid or unsafe? Denies 10/22/2024 Comments Unknown Sex and Gender Information Value Date Recorded Sex Assigned at Not on file Legal Sex Female 5:26 AM WASHING MACHINE REPAIRER Gender Identity Not on file Sexual Orientation Not on file Last Filed Vital Signs Vital Sign Reading Time Taken Comments Blood Pressure 149/48 10/22/2024 9:30 AM WASHING MACHINE REPAIRER Pulse 55 10/22/2024 10:45 AM WASHING MACHINE REPAIRER Temperature 37.1 C (98.7 F) 10/21/2024 11:26 PM WASHING MACHINE REPAIRER Respiratory Rate 16 10/22/2024 10:45 AM WASHING MACHINE REPAIRER Oxygen Saturation 100% 10/22/2024 10:45 AM WASHING MACHINE REPAIRER Inhaled Oxygen Concentration - - Weight 100.7 kg (222 lb) 07/16/2024 10:31 AM WASHING MACHINE REPAIRER Height 157.5 cm (5' 2 ) 07/16/2024 10:31 AM WASHING MACHINE REPAIRER Body Mass Index 40.6 07/16/2024 10:31 AM WASHING MACHINE REPAIRER Plan of Treatment Not on file Medical Devices Implanted Type Area Machine Molder Squeeze Device Identifier Shelf Expiration Date Model / Serial / Lot [employer] [id number] Effie Dailya Leaflet Sewing Ring 21mm Valve Aortic Bovine - [id number] - [id number] Implanted:Qty: 1 on 01/18/2019 by Jeremias Grewal MD at [facility] N/A: Heart [employer] 09/06/2020 [id number] / [id number] / Description:Aortic Valve Procedures Procedure Name Priority Date/Time Associated Diagnosis Comments [place] [facility] ILL/INJURED PATIENT INIT 30-74 MIN Routine 10/22/2024 10:45 AM WASHING MACHINE REPAIRER POCT GLUCOSE DEVICE Routine 10/22/2024 8 :[address]ING M[address]INE REPAIRER CT ABDOMEN PELVIS W CONTRAST ED 10/22/2024 8:46 AM WASHING MACHINE REPAIRER URINALYSIS AND REFLEX TO MICROSCOPIC AND CULTURE STAT 10/22/2024 8:34 AM WASHING MACHINE REPAIRER RESPIRATORY PATHOGEN PANEL STAT 10/22/2024 8:04 AM WASHING MACHINE REPAIRER LIPASE Add-On 10/22/2024 1:59 AM WASHING MACHINE REPAIRER TROPONIN T HIGH-SENSITIVITY 2-HOUR Timed 10/22/2024 1:59 AM WASHING MACHINE REPAIRER XR CHEST 1 VIEW ED 10/22/2024 12:40 AM WASHING MACHINE REPAIRER EGFR STAT 10/21/2024 11:34 PM WASHING MACHINE REPAIRER DIFFERENTIAL AUTO STAT 10/21/2024 11: 34 PM WASHING MACHINE REPAIRER TROPONIN T HIGH-SENSITIVITY SERIES (BASELINE, 2HR, 4HR, 6HR) STAT 10/21/2024 11:34 PM WASHING MACHINE REPAIRER COMPREHENSIVE METABOLIC PANEL STAT 10/21/2024 11:34 PM WASHING MACHINE REPAIRER CBC WITH AUTO DIFFERENTIAL STAT 10/21/2024 11:34 PM WASHING MACHINE REPAIRER ECG 12-LEAD Routine 10/21/2024 11:29 PM WASHING MACHINE REPAIRER LIPID PANEL Routine 01/20/2019 2:19 AM CDT HEMOGLOBIN A1C Routine 12/31/2018 1:30 PM CDT Preop testing from Last 3 Months or Most Recently Relevant to Health Maintenance Results * [place] [facility] ILL/INJURED PATIENT INIT 30-74 MIN (10/22/2024 10:45 AM WASHING MACHINE REPAIRER) Narrative Masood Gibson MD - 10/22/2024 10:45 AM WASHING MACHINE REPAIRER Masood Gibson MD 11/04/2024 7:33 PM Critical [...] Result * POCT glucose (10/22/2024 8:54 AM WASHING MACHINE REPAIRER) Glucose, POC 87 70 - 199 mg/dL Blood 10/22/2024 8:54 AM WASHING MACHINE REPAIRER 10/22/2024 8:54 AM WASHING MACHINE REPAIRER us Masood Gibson MD LAB POCT ORDERABLES - SUKH CE Final Result [facility] [address] [place] [address] * CT Abdomen Pelvis W Contrast (10/22/2024 8:46 AM WASHING MACHINE REPAIRER) Anatomical Region Laterality Modality Body N/A Computed Tomogra phy 10/22/2024 9:20 AM WASHING MACHINE REPAIRER Impressions 10/22/2024 9:20 AM WASHING MACHINE REPAIRER NO ACUTE INTRA-ABDOMINAL FINDINGS Electronically signed by: Larry Eng M.D. Narrative 10/22/2024 9:20 AM WASHING MACHINE REPAIRER EXAMINATION: CT ABDOMEN PELVIS W CONTRAST DATE: [...] microscopic and culture Urine (10/22/2024 8:34 AM WASHING MACHINE REPAIRER) Color, ur Yellow Yellow Clarity, ur Clear [...] tendency for uric acid stone formation. Source: [facility] Current Interpretive Data was last revised on 2017 Protein, ur ql Negative Negative [facility] Glucose, ur ql Negative Negative [facility] Ketones, ur Negative Negative [facility] Bilirubin, ur Negative Negative [facility] Blood, ur Negative Negative [facility] Urobilinogen, ur <2.0 <2.0 mg/dL [facility] Nitrite, ur Negative Negative [facility] Leukocyte esterase, ur Negative Negative [facility] UA reflex comment Reflex conditions for microscopic UA and culture not met. [facility] Urine 10/22/2024 8:34 AM WASHING MACHINE REPAIRER 10/22/2024 8:39 AM WASHING MACHINE REPAIRER Masood Gibson MD LAB MICROBIOLOGY - GENERAL ORDERABLES Final Result [facility] [address] [place] [address] * (ABNORMAL) Respiratory pathogen panel Nasopharyngeal (10/22/2024 8:04 AM WASHING MACHINE REPAIRER) Pathologist [facility] Influenza A RNA Not Detected Not Detected Influenza B RNA Not Detected Not Detected [facility] RSV RNA Not Detected Not Detected [facility] COVID-19 RNA Detected(A) Not Detected [facility] Coronavirus 229E RNA Not Detected Not Detected [facility] Coronavirus HKU1 RNA Not Detected Not Detected [facility] Coronavirus NL63 RNA Not Detected Not Detected [facility] Coronavirus OC43 RNA Not Detected Not Detected [facility] Adenovirus DNA Not Detected Not Detected [facility] Metapneumovirus RNA Not Detected Not Detected [facility] Rhinovirus/Enterov irus RNA Not Detected Not Detected [facility] Parainfluenza 1 RNA Not Detected Not Detected [facility] Parainfluenza 2 RNA Not Detected Not Detected [facility] Parainfluenza 3 RNA Not Detected Not Detected [facility] Parainfluenza 4 RNA Not Detected Not Detected [facility] B. pertussis DNA Not Detected Not Detected [facility] B. parapertussis DNA Not Detected Not Detected [facility] C. pneumoniae DNA Not Detected Not Detected [facility] M. pneumoniae DNA Not Detected Not Detected [facility] Comment: Interpretive Data The [employer] FilmArray Respiratory Panel (RP2.1) assay is a [...] assay has FDA clearance for testing of EFFICIENCY MINER BLASTING swabs. The performance characteristics of this assay have been determined by [facility]. Current interpretive data was last revised on 2021. Nasopharyngeal 10/22/2024 8: 04 AM WASHING MACHINE REPAIRER 10/22/2024 8:06 AM WASHING MACHINE REPAIRER [facility] 10/22/2024 9:05 AM WASHING MACHINE REPAIRER Is the Patient experiencing symptoms consistent with COVID?->Yes Surveillance testing for transplant patient?->No Masood Gibson MD LAB MICROBIOLOGY - GENERAL ORDERABLES Final Result Performing Organization Address City/[facility]/ZIP Co de Phone Number [facility] [address] [place] [address] CH * Troponin T high-sensitivity 2-hour (10/22/2024 1:59 AM WASHING MACHINE REPAIRER) Trop T hs 11 <=14 ng/L Comment: Interpretive Data For further hscTnT resources including the diagnostic algorithm and an aid in interpretation, copy and paste this link: https://nrl.testcatalog.org/show/hsTrop Current Interpretive Data last revised 2020. Trop T hs delta 0 ng/L [facility] Trop T hs interp Insignificant [facility] Blood 10/22/2024 1:59 AM WASHING MACHINE REPAIRER 10/22/2024 2:02 AM WASHING MACHINE REPAIRER Osbaldo Cade MD LAB BLOOD ORDERABLES Final Result Performing Organization Address City/[facility]/ZIP Co de Phone Number [facility] [address] Department [place] [address] * Lipase (10/22/2024 1:59 AM WASHING MACHINE REPAIRER) Lipase 40 10 - 99 Units/L Blood 10/22/2024 1:59 AM WASHING MACHINE REPAIRER 10/22/2024 2:02 AM WASHING MACHINE REPAIRER Robin GLORIA LAB BLOOD ORDERABLES Final Result Performing Organization Address City/[facility]/ZIP Co de Phone Number [facility] [address] [place] [address] * XR Chest 1 Vw Portable (10/22/2024 12:40 AM WASHING MACHINE REPAIRER) Anatomical Region Laterality Modality Body, Chest N/A Computed Radiogr aphy 10/22/2024 9:01 AM WASHING MACHINE REPAIRER Impressions 10/22/2024 9:01 AM WASHING MACHINE REPAIRER No acute cardiopulmonary findings. Electronically signed by: Danie Betancourt II, D.O. Narrative 10/22/2024 9:01 AM WASHING MACHINE REPAIRER EXAMINATION: XR CHEST 1 VIEW DATE: 10/22/2024 [...] (baseline, 2hr, 4hr, 6hr) (10/21/2024 11:34 PM WASHING MACHINE REPAIRER) Trop T hs 11 <=14 ng/L Comment: Interpretive Data For further hscTnT resources including the diagnostic algorithm and an aid in interpretation, copy and paste this link: https://nrl.testcatalog.org/show/hsTrop Current Interpretive Data last revised 2020. Blood 10/21/2024 11:3 4 PM WASHING MACHINE REPAIRER 10/21/2024 11:39 PM WASHING MACHINE REPAIRER us Osbaldo Cade MD LAB BLOOD ORDERABLES Final Result [facility] [address] [place] [address] * eGFR (10/21/2024 11:34 PM WASHING MACHINE REPAIRER) eGFR 71 >=60 mL/min/1. 73 m2 Comment: [...] reviewed 2021. Blood 10/21/2024 11:3 4 PM WASHING MACHINE REPAIRER 10/21/2024 11:39 PM WASHING MACHINE REPAIRER us Osbaldo Cade MD LAB BLOOD ORDERABLES Final Result [facility] [address] [place] [address] * Differential, auto (10/21/2024 11:34 PM WASHING MACHINE REPAIRER) Pathologist [facility] Neutrophil abs 5.3 1.5 - 6.5 K/cumm Imm gran abs 0.0 0.0 - 0.1 K/cumm [facility] Lymphocyte abs 3.3 0.8 - 3.3 K/cumm [facility] Monocyte abs 0.7 0.2 - 0.8 K/cumm [facility] Eosinophil abs 0.3 0.0 - 0.5 K/cumm [facility] Basophil abs 0.0 0.0 - 0.1 K/cumm [facility] Neutrophil pct 54.8 % [facility] Comment: Interpretive Data Percent cell count reference ranges are not reported, since discordance with absolute values may lead to misinterpretation of CBC data. Current Interpretive Data was last revised on 2017. Imm gran pct 0.3 % [facility] Comment: Interpretive Data Percent cell count reference ranges are not reported, since discordance with absolute values may lead to misinterpretation of CBC data. Current Interpretive Data was last revised on 2017. Lymphocyte pct 34.3 % [facility] Comment: Interpretive Data Percent cell count reference ranges are not reported, since discordance with absolute values may lead to misinterpretation of CBC data. Current Interpretive Data was last revised on 2017. Monocyte pct 7.1 % [facility] Comment: Interpretive Data Percent cell count reference ranges are not reported, since discordance with absolute values may lead to misinterpretation of CBC data. Current Interpretive Data was last revised on 2017. Eosinophil pct 3.3 % [facility] Comment: Interpretive Data Percent cell count reference ranges are not reported, since discordance with absolute values may lead to misinterpretation of CBC data. Current Interpretive Data was last revised on 2017. Basophil pct 0.2 % [facility] Comment: Interpretive Data Percent cell count reference ranges are not reported, since discordance with absolute values may lead to misinterpretation of CBC data. Current Interpretive Data was last revised on 2017. Blood 10/21/2024 11:3 4 PM WASHING MACHINE REPAIRER 10/21/2024 11:39 PM WASHING MACHINE REPAIRER us Osbaldo Cade MD LAB BLOOD ORDERABLES Final Result [facility] [address] Department [place] [address] * (ABNORMAL) CBC with auto differential (10/21/2024 11:34 PM WASHING MACHINE REPAIRER) WBC 9.7 3.8 - 9.9 K/cumm Hgb 10.0(L) 11.9 - 15.5 g/dL [facility] Hct 32.4(L) 35.6 - 45.5 % [facility] Plt 242 150 - 400 K/cumm [facility] MPV 10.0 9.1 - 12.3 fL [facility] RBC 4.38 3.90 - 5.20 M/cumm [facility] MCV 74.0(L) 81.3 - 96.4 fL [facility] MCH 22.8(L) 27.1 - 33.3 pg [facility] MCHC 30.9(L) 32.3 - 35.7 g/dL [facility] RDW CV 15.4(H) 11.1 - 14.9 % [facility] RDW SD 41.5 35.7 - 48.1 fL [facility] NRBC abs 0.00 0.00 - 0.01 K/cumm [facility] Blood 10/21/2024 11:3 4 PM WASHING MACHINE REPAIRER 10/21/2024 11:39 PM WASHING MACHINE REPAIRER us Osbaldo Cade MD LAB [place]LOOD [place] [address] [address] Department [place] [address] * Comprehensive metabolic panel (10/21/2024 11:34 PM WASHING MACHINE REPAIRER) Sodium 139 135 - 145 mmol/L Potassium, [...] [facility] Blood 10/21/2024 11:3 4 PM WASHING MACHINE REPAIRER 10/21/2024 11:39 PM WASHING MACHINE REPAIRER Osbaldo Cade MD LAB BLOOD ORDERABLES Final Result [facility] [address] [place] [address] * ECG 12 lead (10/21/2024 11:29 PM WASHING MACHINE REPAIRER) 10/21/2024 11:2 9 PM WASHING MACHINE REPAIRER Narrative [facility] - 10/22/2024 11:20 AM WASHING MACHINE REPAIRER Vent Rate: 61 bpm RR Interval: 982 msec [place] Interval: 194 msec QRS Duration: 101 msec QT Interval: 390 msec QTC Interval: 392 msec P-R-T Barron: 31 - 0 - 51 degrees IMPRESSION: SINUS RHYTHM NORMAL ECG Electronically Signed By: Isac Souza MD Osbaldo Cade MD ECG ORDERABLES Final Resul t Performing Organization Address City/[facility]/ZIP Co de Phone Number [facility] [employer] [facility] * Lipid panel (01/20/2019 2:19 AM CDT) Cholesterol 93 30 - 199 mg/dL [facility] Comment: Interpretive Data Ages < or = [...] on 2018. Triglycerides 110 <=149 mg/dL [facility] Comment: Interpretive Data Ages < or = [...] on 2018. HDL 40 >=40 mg/dL [facility] Comment: Interpretive Data Ages < or = [...] 2018. LDL, calculated 31 <=129 mg/dL [facility] Comment: Interpretive Data Ages < or = [...] on 2018. Non-HDL Cholesterol 53 mg/dL [facility] Comment: Interpretive Data Ages < or = [...] last revised on 2018. Chol/HDL ratio 2 [facility] Blood specimen (specimen) 01/20/2019 2:19 AM CDT 01/20/2019 2:30 AM CDT Narrative [facility] - 01/20/2019 3:12 AM CDT Mook Green MD LAB BLOOD ORDERABLES Final Resu lt Performing Organization Address [facility] de Phone Number [facility] [address] Department [place] [address] * (ABNORMAL) Hemoglobin A1c (12/31/2018 1:30 PM CDT) Hgb A1C 7.6(H) 4.0 - 5.6 % [facility] Estimated Average Glucose 171 mg/dL [facility] Comment: The ADA recommends reporting an estimated Average Glucose (eAG) with all Hemoglobin A1c results using the equation derived from a study of 507 normal and diabetic adults. Minority populations were underrepresented and children were not included. (Diabetes Care 31:6257-0769, 2008). The eAG is not equivalent to a fasting glucose. Blood specimen (specimen) 12/31/2018 1:30 PM CDT 12/31/2018 3:16 PM CDT Narrative [facility] - 12/31/2018 5:03 PM CDT Jeremias Grewal MD LAB BLOOD ORDERABLES Final R esult Performing Organization Address [facility] Co de Phone Number [facility] [address] Department [employer] [place], [place] [id number] from Last 3 Months or Most Recently Relevant to Health Maintenance Additional Health Concerns Infection Onset Date Last Indicated COVID: Recovered Comment:Added based on recent COVID infection. 11/01/2024 025 Insurance MEDICARE [facility] [place] MEDICARE [facility] MEDICARE MEDICARE [facility] Advance Directives For more information, please contact: [phone] * Full Code (Latest Code Status on File) Date Activated Date Inactivated Comments 01/29/2019 6:44 PM 02/08/2019 10:55 PM * Full Code Date Activated Date Inactivated Comments 01/18/2019 2:27 PM 01/29/2019 6:14 PM Care Teams Battery Container Inspector Relationship Specialty Start Date End Date Maurice Daniels MD PCP - General 12/05/17 Jeremias Grewal MD Surgeon Cardiothoracic Surgery 10/07/19 Brennen Maldonado MD [address] [place] [address] Consulting Physician Hematology and Oncology 05/18/23 Alonso Antunez DNP [address] [place] [address] Nurse Practitioner Hematology and Oncology 05/18/23 Dejuan Butterfield MD [address] [facility] [address] [place] [address] Referring Physician Ophthalmology 01/11/24 John Avila MD [address] [facility] [address] [facility] [address] [place] [address] Referring Physician Obstetrics and Gynecology 05/27/24 Vin Oliver MD [address] [facility] [address] Referring Physician Psychiatry 05/27/24 [place] [address] [facility] [address] [place] [address] Consulting Physician Cardiology 05/27/24 Prabhu Harp NP [address] [place] [address] Nurse Practitioner Sleep Medicine 05/27/24 Ary Spangler OT [address] [place] [address] Occupational Therapist Occupational Therapy 09/10/24
--- OUTSIDE RECORDS SUMMARY | 2024-12-13 08:22 | XMS_ITS | Data Portability ---
Author Organization [place] [facility] [employer], Main Office Address [address] [place] [address] Care Team Providers Care Project Management Analyst Name Role Phone ANABELLA DANIELS Primary Care Provider ANABELLA DANIELS Referring Provider [phone] [facility] EYE LENA Computer Software Engineer HITESH COOPER Electric Meter Tester Helper [facility] NEURO PSYCHOLOGY Neuropsyc hiatrist THIERNO SHELTON Orthopedic Surgeon [phone] MAGGIE VINCENT [employer] Dies Loader Assessment No assessment recorded. Plan of Treatment Reminders Order Date Submit Date Provider Last Modified By Organization Details Last Modified Time Details Appointments Any 15 2024 09:15A Sandy Daniels MD Not available Not available Not available Any 15 2024 11:30A Sandy Daniels MD Not available Not available Not available Lab None recorded. Referral None recorded. Procedures upper endoscopy procedure (EGD) (PROC) - Please call patient to schedule. 2024 025 [email or web address] Vin Navarrete MD, [address], [place], [address], 10/28/2024 08:53:18 [email or web address] n tube balloon dilation (PROC) 2023 024 [email or web address] In-Office Order, Internal Use Only DO Not Attach Compendium DO Not Attach Compendium, Do Not Delete/merge, [id number] 08/01/2024 14:20:00 Surgeries None recorded. Imaging None recorded. Medication Orders ondansetr on 4 mg disintegr ating tablet [address] [facility] #[id number], [address], [place], [address], 09/11/2024 16:27:00 Patient TargetsNo targets recorded. Patient Instructions Encounter Date Encounter Id Patient Instructions Last Modified By Organization Details Last Modified Time 10/10/2024 [id number] she will have th e PE tubes removed. We discussed this in the office but she reports she is unable to tolerate any pain. Not available 10/10/2024 14:21:31 11/07/2024 [id number] this patient has accepted that her hearing is age-related and will return as needed Not available 11/07/2024 12:40:49 Reason for Referral None Reported. Results Created Date Observation Date Name Description Value Unit Range Abnormal Flag Note LastModifiedBy Organization Detail LastModifiedTime 07/02/20 24 07/02/2024 audio gram + tympa nogra m No observ ation record ed. [email or web address] [facility] [address], [place], [address], 07/09/2024 09:13:58 07/03/20 24 07/03/2024 audio gram + tympa nogra m No observ ation record ed. BARCODE [facility] [address], [place], [address], 07/03/2024 17:48:13 Result Notes None recorded. Problems Name Problem SNOMED Code Status Onset Date Resolution Date Notes Provider Name and Address Organization Details Recorded Time Urinary symptoms 557216384 Active 2022 Not Available [facility] 3 06:28:19 Acute urinary tract infection 757455713 Active 2022 TOMMY Mason, [facility] 3 14:40:48 Pain of left wrist 83787878451 9102 Active 2023 Anabella Daniels MD [address] [place] [address] [address], [address], [place], [address] , [facility] 4 11:56:21 Osteoporo sis 71840748 Active 2023 Mercedes Calderon LPN null, [facility] 4 10:56:50 Pain in wrist 10346908 Active 2023 Juli Richter MA null, [facility] 4 16:34:26 Tenosynov itis of left radial styloid 54079104940 163312 Active 2023 JUANI Tariq [address], [address], [place], [address] , [facility] 4 09:15:14 Urinary tract infectiou s disease 40110885 Active 2023 Juli Richter MA null, [facility] 4 16:23:21 Idiopathi c periphera l neuropath y 27210235 Active 2023 Diane Serra null, [facility] 4 09:12:18 Pain of left hand 85114935701 9103 Active 2023 JUANI Tariq [address], [address], [place], [address] , [facility] 4 09:17:05 Claustrop hobia 31113553 Active 2023 Juli Richter MA null, [facility] 4 11:48:35 Infection of skin 371146488 Active 2023 Anabella Daniels MD [address], [address], [place], [address] , [facility] 4 10:43:17 Coronary arteriosc lerosis 75117316 Active 2023 Anabella Daniels MD [address], [address], [place], [address] , [facility] 4 10:48:58 Nausea 187166044 Active 2023 Juli Richter MA null, [facility] 4 14:07:03 Sensorine ural hearing loss 79031976 Active 2023 Freeman Cooley CMA null, [place] [facility] 4 15:23:08 Dysfuncti on of bilateral eustachia n tubes 26998281424 07603 Active 2023 DIAZ Morrell [address], [address], [place], [address] , [facility] 4 15:25:15 Referred otalgia 36793420 Active 2023 Dali Deandre null, [facility] 4 11:54:53 Dysfuncti on of eustachia n tube 74889336 Active 2023 Maggie Vincent MD [address], [address], [place], [address] , [facility] 4 12:58:59 Allergic rhinitis 77457231 Active 2024 Dali Deandre null, [place] [facility] 5 11:46:51 Pain in throat 885651940 Active 2024 Dali Deandre null, [facility] 5 11:46:51 Dysfuncti on of eustachia n tube 07243367 Active 2024 Dali Deandre null, [facility] 5 11:55:41 Nausea and vomiting 98034863 Active 2024 Anabella Daniels MD [address], [address], [place], [address] , [facility] 5 16:24:18 Edema of lower extremity 841738028 Completed 201701/01/2018 Not Available [facility] 3 04:53:25 Acute bronchiti s 77693886 Completed Not Available [facility] 3 04:53:25 Pain in lower limb 85177449 Completed Not Available [facility] 3 04:53:25 Injury of lower limb 503901887 Completed Not Available [facility] 3 04:53:25 External hordeolum 2176919 Completed Not Available [facility] 3 04:53:25 Acquired trigger finger 5923244 Completed Not Available [facility] 3 04:53:25 Acute sinusitis 43941583 Active 2021 Not Available [facility] 3 06:28:19 Radiother apy follow-up 781485371 Completed Not Available [facility] 3 04:53:25 Insomnia 669268485 Active Not Available [facility] 3 06:28:19 Asthma 179174316 Active Not Available [facility] 3 06:28:19 Non-alcoh olic fatty liver 972926687 Active Not Available [facility] 3 06:28:19 Steatosis of liver Completed 202002/04/2022 Not Available [facility] 3 04:53:26 Steatosis of liver Completed Not Available [facility] 3 04:53:26 Abdominal pain 70559227 Completed Not Available [facility] 3 04:53:26 Sciatica 44402098 Active Not Available [facility] 3 06:28:19 Gastroeso phageal reflux disease 804406044 Active Not Available [facility] 3 06:28:19 Chafing of skin 786148180 Completed Not Available [facility] 3 04:53:26 Headache 17761336 Completed Not Available [facility] 3 04:53:26 Dyspnea 840170633 Completed Not Available [facility] 3 04:53:26 Edema 416263012 Completed 201802/04/2022 Not Available [facility] 3 04:53:27 Adult health examinati on Active 2020 Not Available [facility] 3 06:28:19 Anemia 737067561 Active Not Available [facility] 3 06:28:19 Low back pain 393047296 Completed Not Available [facility] 3 04:53:27 Knee pain Completed Not Available [facility] 3 04:53:27 Osteopeni a 851215455 Active 2018 Not Available [facility] 3 06:28:19 Changing color of pigmented skin lesion 387521993 Active Not Available [facility] 3 06:28:19 Pain of left hip joint 11723763130 9100 Active 2022 Not Available [facility] 3 06:28:19 Vitamin D deficienc y 10240453 Active 2018 Not Available [facility] 3 06:28:19 Depressiv e disorder 25554394 Active Not Available [facility] 3 06:28:19 Heart valve disorder 405242 Active Not Available [facility] 3 06:28:19 Sinusitis 49247126 Completed Not Available [facility] 3 04:53:28 Hypertens celestino disorder 52217149 Active Not Available [facility] 3 06:28:19 Memory impairmen t 276933904 Completed Not Available [facility] 3 04:53:29 Osteoarth ritis 000341657 Active Not Available [facility] 3 06:28:19 Thalassem ia 64909848 Active Not Available [facility] 3 06:28:19 Dizziness 593536049 Completed Not Available [facility] 3 04:53:29 Dysphagia 11611126 Active 2021 Not Available [facility] 3 06:28:19 Obesity 949759971 Active Not Available [facility] 3 06:28:19 Nausea 531957676 Completed TOMMY Reina, [place] [employer] [facility] 4 14:07:03 Diabetic periphera l neuropath y 025124487 Active Not Available [facility] 3 06:28:19 History of mastectom y 052517058 Active 2018 Not Available [facility] 3 06:28:19 Family history of malignant neoplasm of brain 118517872 Completed 201802/04/2022 Not Available [facility] 3 04:53:30 Acute urinary tract infection 855292587 Completed 202106/02/2022 TOMMY Mason, [facility] 3 14:40:48 Acute urinary tract infection 330090868 Completed TOMMY Mason, [facility] 3 14:40:48 Shoulder pain 74694096 Completed Not Available [facility] 3 04:53:31 Acute conjuncti vitis 45699533 Completed Not Available [facility] 3 04:53:31 Upper respirato ry infection 18229375 Completed Not Available [facility] 3 04:53:31 Hyperlipi demia 86663951 Active Not Available [facility] 3 06:28:19 Disorder of bursa of shoulder region 10128215 Completed Not Available [facility] 3 04:53:32 Essential hypertens ion 47257616 Active Not Available [facility] 3 06:28:19 Aortic valve stenosis 76255136 Active Not Available [facility] 3 06:28:19 Diarrhea 83414751 Completed Not Available [facility] 3 04:53:32 Carotid artery stenosis 11671481 Active 2018 Not Available [facility] 3 06:28:20 Urinary tract infectiou s disease 62968353 Completed TOMMY Reina, [facility] 4 16:23:21 Candidias is of vagina 22713378 Completed 202106/02/2022 Not Available [facility] 3 04:53:33 Diabetes mellitus 09970025 Active Not Available [facility] 3 06:28:20 Sleep apnea 28971280 Active Not Available [facility] 3 06:28:20 Urgent desire to urinate 45838749 Completed Not Available [facility] 3 04:53:34 Neck pain 40968527 Completed Not Available [facility] 3 04:53:34 Fatigue 02916580 Completed 202002/04/2022 Not Available [facility] 3 04:53:34 Chronic rhinitis 07738762 Active Not Available [facility] 3 06:28:20 Heart murmur 81398163 Active Not Available [facility] 3 06:28:[address]-assoc iated gastritis 05586142 Active Not Available [facility] 3 06:28:20 Problem Notes None recorded. Procedures Surgical History Date Name Laterality Status Provider Name and Address Organization Details Recorded Time 07/04/20 Medicare Wellness CPT Code, subsequent completed JOSE Pacheco [employer] 07/04/2024 12:20:03 07/04/20 24 Advanced Care Planning completed JOSE Pacheco [employer] 07/04/2024 12:23:37 06/10/20 24 Ortho - Cortisone Injection completed Paige Lee NP [address] [facility], [address], [address], [employer] 06/10/2024 11:17:39 03/18/20 22 Date of Last Colonoscopy completed Not Available [facility] 10/19/2022 04:43:18 01/19/20 19 replacement of aortic valve completed Ruth Vasqeuz CNA [facility] 04/12/2023 15:30:13 03/17/20 17 Incise finger tendon sheath completed Not Available [facility] 10/19/2022 04:43:22 12/18/19 16 Most Recent Bone Density completed Not Available [facility] 10/19/2022 04:43:18 10/20/19 08 endoscopic retrograde pancreatography completed Ruth Vasquez CNA [facility] 04/12/2023 15:32:01 07/21/20 06 reduction of batwing arms completed Ruth Vasquez CNA [facility] 04/12/2023 15:35:33 06/21/20 06 Breast Biopsy completed Ruth Vasquez CNA [facility] 04/12/2023 15:36:40 05/21/20 06 biopsy of liver completed Ruth Pedro FREELANCE INTERPRETER/TRANSLATOR [place] [facility] 04/12/2023 15:34:13 03/21/20 04 cholecystectomy completed Ruth Pedro, FREELANCE INTERPRETER/TRANSLATOR [place] [facility] 04/12/2023 15:37:06 08/21/18 79 Eye Surgery completed Ruth Pedro, FREELANCE INTERPRETER[facility] 04/12/2023 15:37:26 colonoscopy completed Not Available [facility] 10/19/2022 04:43:22 Cardiovascular Surgery completed Ruth Pedro, FREELANCE INTERPRETER[facility] 04/12/2023 15:33:16 Breast Surgery completed Not Available [facility] 10/19/2022 04:43:22 MEDICAL RECORD SPECIALIST Surgery completed Not Available [facility] 10/19/2022 04:43:22 Carpal tunnel surgery completed Not Available [facility] 10/19/2022 04:43:22 Imaging Results Imaging Date Name Status LastModified by [facility] Details LastModified Time 07/02/2024 audiogram + tympanogram completed [address] Audiology [address] [facility] [place], [address], 07/09/2024 09:13:58 07/03/2024 audiogram + tympanogram completed [facility] [address], [place], [address], 07/03/2024 17:48:13 Procedure Notes None recorded. Medical Equipment None Reported. Allergies Allergen ID Allergen Name Allergen Category Reaction Reaction Severity Criticality Documentation Date Start Date Code Code System Note Provider Name and Address Organization Details Recorded Time 27878 ciproflox acin medicatio n hallucina tions nausea Not available Not available Not available 12/15/2023 2551 RxNorm Vianca Hall NP [address] [facility], [facility] [address], [place], [address] [place] [address] - [facility] 16:52:22 8390 tramadol medicatio n itching Not available Not available 10/19/2022 66809 RxNorm Not Available [facility] 3 05:04:51 8391 Levaquin medicatio n hallucina tions nausea Not available Not available Not available 10/19/2022 47965 2 RxNorm Not Available [facility] 3 05:04:51 Medications Name Sig Start Date Stop Date Status Note LastModified by Organization Details LastModified Time losartan 50 mg tablet TAKE 1 TABLET BY MOUTH TWICE A DAY active Not Available Not Available No t Available cyclobenz aprine 10 mg tablet Take 1 [...] Not Available Not Available Not Avai lable prednison e 10 mg tablet PLEASE SEE [...] completed Not Available Not Available Not Available ondansetr on HCl 4 mg tablet TAKE 1 TABLET BY MOUTH EVERY 8 HOURS NEEDED FOR NAUSEA/V OMITING active Not Available Not Available No t Available bupivacai ne HCl 0.5 % (5 [...] completed Not Available Not Available Not Available [employer] Ultra Test strips USE TO TEST 3 TIMES A DAY 04/12 completed Not Available Not Available Not Available Kenalog 10 mg/mL suspensio n for injection in office 06/17 completed [facility]: [id number] 4- Not Available Not Available Not Available lorazepam [...] Not Available Not Available No t Available ferrous sulfate 325 mg (65 mg iron) tablet TAKE 1 TABLET BY MOUTH EVERY OTHER DAY active Not Available Not Available No t Available metformin 1,000 mg tablet TAKE 1 TABLET BY MOUTH TWICE A DAY active Not Available Not Available No t Available tobramyci n 0.3 % eye drops 04/04 [...] Updated DateTime 07/24/2024 157.48 cm 40.4 kg/m2 099477.91 g 97.8 [degF] Effie Mcpherson RN [facility] [employer] [facility] 07/24/2024 12:29:06 Date Recorded Body height Body mass index (BMI) Body weight Body temperature Provider Name and Address Organization Details Last Updated DateTime 08/27/2024 157.48 cm 38.5 kg/m2 33036.83 g 97.7 [degF] Effie Mcpherson RN [facility] [employer] [facility] 08/27/2024 10:54:41 Date Recorded Body height Body mass index (BMI) Body weight Body temperature Heart rate Oxygen saturation Oxygen saturation in Arterial blood by Pulse oximetry Systolic blood pressure Diastolic blood pressure Provider Name and Address Organization Details Last Updated DateTime 157.48 cm 37.9 kg/m2 42581.6 2 g 97.2 [degF] 77 /min 98 % 98 % 130 mm[Hg] 58 mm[Hg] Aye crowley [facility] [employer] 16:00:19 Date Recorded Body height Body mass index (BMI) Body weight Body temperature Provider Name and Address Organization Details Last Updated DateTime 10/10/2024 157.48 cm 36.2 kg/m2 37465.29 g 97.7 [degF] Effie Mcpherson RN [facility] 10/10/2024 14:05:17 Date Recorded Body height Provider Name an d Address Organization Details Last Updated DateTime 11/07/2024 157.48 cm Maggie Vincent MD [address] [facility], [facility] [address], [place], [address], [facility] 11/07/2024 12:39:10 Social History Question Answer Notes LastModified by Organization Details LastModified Time Tobacco Smoking Status Never Smoker Not Available [facility] 10/19/2022 04:35:32 Do You Have An Advance Directive? No [email or web address] Information not available 07/04/2024 What Is Your Level Of Alcohol Consumption? None MIGRATION.0301 [id number] Information not available 10/19/2022 Are You Blind Or Do You Have Difficulty Seeing? Yes Glasses, [facility] [place] MIGRATION.0301 [id number] Information not available 10/19/2022 Is Blood Transfusion Acceptable In An Emergency? Yes [email or web address] Information not available 07/04/2024 What Is Your Level Of Caffeine Consumption? Occasional MIGRATION.0301 [id number] Information not available 10/19/2022 How Much Tobacco Do You Chew? None MIGRATION.030 [id number] Information not available 10/19/2022 Are You Currently Employed? No [email or web address] Information not available 07/04/2024 Are You Deaf Or Do You Have Serious Difficulty Hearing? Yes [email or web address] Information not available 07/04/2024 What Type Of Diet Are You Following? REGULAR MIGRATION.030 [id number] Information not available 10/19/2022 Which Illicit Or Recreational Drugs Have You Used? None MIGRATION.030 [id number] Information not available 10/19/2022 What Is The Highest Grade Or Level Of School You Have Completed Or The Highest Degree You Have Received? [id number] [email or web address] Information not available 07/04/2024 What Is Your Occupation? Retired MIGRATION.030 [id number] Information not available 10/19/2022 How Many Days Of Moderate To Strenuous Exercise, Like A Brisk Walk, Did You Do In The Last 7 Days? 0 [email or web address] Information not available 07/04/2024 Have There Been Any Changes To Your Family Or Social Situation? Yes 2 Grandchildren Moved In With Her In 2023 [email or web address] Information not available 07/04/2024 What Is The Fluoride Status Of Your Home? Fluoridated MIGRATION.030 [id number] Information not available 10/19/2022 Are There Any Guns Present In Your Home? No MIGRATION.0301 [id number] Information not available 10/19/2022 Do You Use Insect Repellent Routinely? No [email or web address] Information not available 07/04/2024 Where Do You Live? [place] MIGRATION.0301 [id number] Information not available 10/19/2022 Are You Following A Low Salt Diet? No [email or web address] Information not available 07/04/2024 Do You Have A Medical Power Of Acoustic Intelligence Specialist? No [email or web address] Information not available 07/04/2024 What Was The Date Of Your Most Recent Tobacco Screening? 07/04/2024 [email or web address] Information not available 07/04/2024 How Many Children Do You Have? 0 [email or web address] Information not available 07/04/2024 Do You Have Any Pets? Yes [email or web address] Information not available 07/04/2024 What Is Your Relationship Status? Single [email or web address] Information not available 07/04/2024 Do You Use Your Seat Belt Or Car Seat Routinely? Yes [email or web address] Information not available 07/04/2024 Are You Sexually Active? No [email or web address] Information not available 07/04/2024 Do You Have Smoke And Carbon Monoxide Detectors In Your Home? Yes MIGRATION.0301 [id number] Information not available 10/19/2022 Are You Passively Exposed To Smoke? No [email or web address] Information not available 07/04/2024 Are There Any Smokers In Your House? No [email or web address] Information not available 07/04/2024 What Types Of Sporting Activities Do You Participate In? None [email or web address] Information not available 07/04/2024 Do You Feel Stressed (tense, Restless, Nervous, Or Anxious, Or Unable To Sleep At Night)? [id number] MIGRATION.0301 [id number] Information not available 10/19/2022 Do You Use Any Illicit Or Recreational Drugs? No [email or web address] Information not available 07/04/2024 Do You Use Sunscreen Routinely? No MIGRATION.0301 [id number] Information not available 10/19/2022 Has Tobacco Cessation Counseling Been Provided? No [email or web address] Information not available 07/04/2024 Have You Recently Traveled Abroad? No [email or web address] Information not available 07/04/2024 Do You Have Any Dietary Restrictions? Yes Should Be On Low Sugar/carb Diet [email or web address] Information not available 07/04/2024 Sex: Female Functional Status Question Answer Note LastModified by Organizat ion Details LastModified Time Do you have difficulty walking or climbing stairs? No MIGRATION.[id number] 026 Information not available 10/19/2022 Do you have transportation difficulties? No [email or web address] Information not available 07/04/2024 Are you able to walk? YESWOREST [email or web address] Information not available 07/04/2024 Do you have difficulty doing errands alone? No MIGRATION.[id number] 026 Information not available 10/19/2022 Are you able to care for yourself? Yes [email or web address] Information n ot available 07/04/2024 Do you have difficulty dressing or bathing? No MIGRATION.[id number] 026 Information not available 10/19/2022 What is your exercise level? None [email or web address] Information not available 07/04/2024 Mental Status Question Answer Note LastModified by Organization D etails LastModified Time Do you have difficulty concentrating, remembering or making decisions? Yes [email or web address] Information no t available 07/04/2024 Family History Relationship Description Onset Age of this Age Resolved Age Notes LastModified by Organization Details LastModified Time Mother Malignant tumor of lung MIGRATION.044 [id number] Not available 10/19/2022 04:43:24 Mother Malignant tumor of breast MIGRATION.292 [id number] Not available 10/19/2022 04:43:25 Father Heart disease MIGRATION.350 [id number] Not available 10/19/2022 04:43:25 Sister Complication of anesthesia [email or web address] Not available 04/12 15:27:27 Mother Family history of malignant neoplasm [email or web address] Not available 2022 15:27:45 Medical History Condition Response DIABETES, TYPE Y ARTHRITIS Y USE OF BLOOD THINNERS Y BLOOD DISEASES Y ANEMIA/BLOOD DISORDER Y HYPERTENSION Y Gynecological History Statement/Question Response Date of Last Pap Date of Last Mammogram Date of Last Colonoscopy 03/18/2022 Most Recent Bone Density 12/18/2015 Obstetrics History GPAL:G 0 P 0 0 0 0 Immunizations Vaccine Type Date Status Note Provider Nam e and Address Organization Details Recorded Time Influenza, split virus, trivalent, PF 3 completed NIRMAL Allen, [facility] [employer] 10/24/2023 10:56:43 Influenza, high-dose, quadrivalent, PF 1 completed Not Available [facility] 04/06/2023 03:45:08 SARS-COV-2 (COVID-19) vaccine, UNSPECIFIED 1 completed NIRMAL Allen [facility] [employer] 10/24/2023 10:56:43 SARS-COV-2 (COVID-19) vaccine, UNSPECIFIED 1 completed NIRMAL Allen [facility] [employer] 10/24/2023 10:56:43 SARS-COV-2 (COVID-19) vaccine, UNSPECIFIED 1 completed Not Available [facility] 04/06/2023 03:45:08 Influenza, split virus, quadrivalent, preservative 0 completed Not Available [facility] 04/06/2023 03:45:08 Tdap 1 completed Not Available [facility] 04/06/2023 03:45:08 pneumococcal polysaccharide PPV23 1 completed Not Available [facility] 04/06/2023 03:45:08 pneumococcal polysaccharide PPV23 5 completed Not Available [facility] 04/06/2023 03:45:08 Influenza, split virus, quadrivalent, PF 2 completed Not Available [facility] 04/06/2023 03:45:08 Influenza, split virus, quadrivalent, PF 9 completed Not Available [facility] 04/06/2023 03:45:08 Td (adult), 5 Lf tetanus toxoid, preservative free, adsorbed 9 completed Not Available [facility] 04/06/2023 03:45:08 Influenza, split virus, quadrivalent, PF 8 completed Francheska Hinojosa CMA null, [facility] [employer] 10/24/2023 10:56:43 Pneumococcal conjugate PCV 13 6 completed Not Available [facility] 04/06/2023 03:45:08 Influenza, split virus, quadrivalent, preservative 6 completed Not Available [facility] 04/06/2023 03:45:08 Influenza, split virus, quadrivalent, preservative 5 completed Not Available [facility] 04/06/2023 03:45:08 Influenza, split virus, trivalent, preservative 4 completed Francheska Hinojosa CMA null, [place] [facility] [employer] 10/24/2023 10:56:43 Influenza, split virus, quadrivalent, preservative 7 completed Not Available [facility] 04/06/2023 03:45:08 pneumococcal polysaccharide PPV23 4 completed Anabella Daniels MD [address] [place] [address], [address], [address], [place] [facility] 03/04/2024 13:27:44 Past Encounters Encounter ID Performer Location Encounter Start Date Encounter Closed Date Diagnosis/Indication Diagnosis SNOMED-CT Code Diagnosis ICD10 Code Diagnosis Note [id number] [facility] [address] [place] [address] 02/05/2021 00:00:00 02/05/2021 13:17:42 [id number] [facility] [address] [place] [address] 06/04/2021 00:00:00 06/04/2021 10:30:21 [id number] [facility] [address] [place] [address]. [place] [address] 08/16/2021 00:00:00 08/16/2021 14:35:44 [id number] [facility] [address] [place] [address] 10/06/2021 00:00:00 10/06/2021 11:25:17 [id number] [facility] [address] [place] [address] 02/07/2022 00:00:00 02/07/2022 11:27:43 [id number] [facility] [address] [facility] [place] [address] 06/06/2022 00:00:00 06/06/2022 13:04:24 [id number] [facility] [place] [id number] [facility] [place] [address] 08/24/2022 00:00:00 08/24/2022 15:12:50 [id number] [facility] [address] [place] [address] 09/05/2022 00:00:00 09/05/2022 11:28:14 [id number] Anabella Daniels MD [facility] [address] [place] [address] 01/05/2023 11:54:05 01/05/2023 12:51:34 Diabetes mellitus 95025746 E13.42 under control, gets eye exam, seeing endo Diabetic p eripheral neuropathy 351781177 E11.40 not on gabapentin any more due to side effects Asthma 070919829 J45.90 9 under control Essential hypertension 06571015 I10 under control Carotid ar kecia stenosis 30225791 I65.29 on asa, dopplers 11/09 Dysphagia 37468455 R13.1 0 not getting worse Depressive disorder 3548 9007 F32.9 under control, seeing psych Gastroesop hageal reflux disease 389786504 K21.9 under control with meds Heart murmur 83206085 R0 1.1 gets echo Insomnia 766954654 G47.0 0 better with meds Obesity 856089451 E66.9 advised to lose Osteoarthritis 378376812 M19.90 otc Sleep apnea 96680897 G47 .30 on cpap Vitamin D deficiency 347 04248 E55.9 otc Chronic rhinitis 9168509 6 J31.0 on montelukas t Adult heal th examination 177715136 Z00.00 Mammogram- both breast removedDex a 2016, wants to wait due covidColon oscopy 2016PCV 13 [id number] OV ID- 09/22/20, 11/09/20, 05/06/21 Postmenopausal state 764 53498 Z78.0 Urinary symptoms 2634171 08 R39.9 [id number] JUANI Kwon [facility] [place] [address] [place] [address] 04/12/2023 14:58:45 04/12/2023 16:02:59 Pain of left hip joint 7810837980 29657 M25.297 [id number] Anabella Daniels MD [facility] [address] [facility] [place] [address] 05/16/2023 10:31:13 05/16/2023 11:16:18 Diabetes mellitus 43035824 E13.42 under control, gets eye exam, seeing endo Diabetic p eripheral neuropathy 712189171 E11.40 not on gabapentin any more due to side effects Asthma 019915795 J45.90 9 advised to use symbicort daily Essential hypertension 22731223 I10 under control Carotid ar kecia stenosis 26433349 I65.29 on asa, gets dopplers at cardiology Dysphagia 38967048 R13.1 0 stable Depressive disorder 3548 9007 F32.9 under control, seeing psych Gastroesop hageal reflux disease 889404587 K21.9 under control with meds Heart murmur 92901424 R0 1.1 gets echo Insomnia 370471134 G47.0 0 better with meds Obesity 024232564 E66.9 advised to lose Osteoarthritis 267837696 M19.90 otc Sleep apnea 61197888 G47 .30 on cpap Vitamin D deficiency 347 21069 E55.9 otc Chronic rhinitis 4136646 6 J31.0 on montelukas t Adult heal th examination 046341534 Z00.00 Mammogram- both breast removedDex a 2015, wants to waitColono scopy 2016PCV 13 [id number] OV ID- 09/22/20, 11/09/20, 05/06/21 Postmenopausal state 764 43132 Z78.0 [id number] Anabella Daniels MD [facility] [address] [place] [address] 10/24/2023 10:44:10 10/24/2023 12:01:20 Diabetes mellitus 99253109 E13.42 under control, gets eye exam, Diabetic p eripheral neuropathy 136403891 E11.40 not on gabapentin any more due to side effects Asthma 066266727 J45.90 9 advised to use symbicort daily Essential hypertension 03629661 I10 under control Carotid ar kecia stenosis 14297511 I65.29 on asa, gets dopplers at cardiology Dysphagia 69075060 R13.1 0 stable Depressive disorder 3548 9007 F32.9 under control, seeing psych Gastroesop hageal reflux disease 816932965 K21.9 under control with meds Insomnia 012787264 G47.0 0 better with meds Obesity 677039951 E66.9 advised to lose Osteoarthritis 892403743 M19.90 otc Sleep apnea 47268214 G47 .30 on cpap Vitamin D deficiency 347 78419 E55.9 otc Chronic rhinitis 9531264 6 J31.0 on montelukas t Adult heal th examination 230491481 Z00.00 Mammogram- both breast removedDex a 2016, wants to waitSoebida george 2016PCV 13 [id number] [id number] ID- 09/22/20, 11/09/20, 05/06/21 Postmenopausal state 764 46578 Z78.0 Pain of left wrist 93331 46422 93149 M25.532 use wrist support [id number] JUANI Tariq [facility] [place] [address] [place] [address] 11/30/2023 08:49:25 11/30/2023 09:12:53 Pain of left wrist 1937930936 08156 M25.532 Tenosynovi tis of left radial styloid 0672180274 0266842 M65.4 [id number] JUANI Tariq [facility] [place] [address] [place] [address] 12/28/2023 08:57:50 12/28/2023 09:31:17 Tenosynovitis of left radial styloid 0040291649 9067832 M65.4 Pain of left hand 940341 7327 45841 M79.650 [id number] Anabella Daniels MD [facility] [address] [facility] [place] [address] 03/04/2024 09:47:48 03/04/2024 11:12:54 Diabetes mellitus 51678790 E13.42 under control, Diabetic p eripheral neuropathy 405815417 E11.40 not on gabapentin any more due to side effects Asthma 858172413 J45.90 9 alb inhaler Essential hypertension 88232954 I10 under control Carotid ar kecia stenosis 29521963 I65.29 on asa, gets dopplers at cardiology Dysphagia 45577410 R13.1 0 no more symptoms Depressive disorder 3548 9007 F32.9 under control, seeing psych Gastroesop hageal reflux disease 862596120 K21.9 under control with meds Insomnia 003706551 G47.0 0 better with meds Obesity 632164676 E66.9 advised to lose Osteoarthritis 537122174 M19.90 otc Sleep apnea 59960749 G47 .30 on cpap Vitamin D deficiency 347 25838 E55.9 otc Chronic rhinitis 3364983 6 J31.0 on montelukas t Adult heal th examination 708591206 Z00.00 Mammogram- both breast removedDex a 11/11Colono scopy 2016PCV 13 [id number] 2004,FLU- 3COV ID- 09/22/20, 11/09/20, 05/06/21 Anemia 099376618 D64.9 Aortic valve stenosis 60 172103 I35.0 s/p valve replacemen t Hyperlipidemia 62731109 E78.5 Non-alcoho lic fatty liver 612086271 K76.0 advised to lose weight Osteopenia 510105793 M85 .80 on otc Infection of skin 239880 000 L08.9 Coronary arteriosclerosis 52687878 I25.10 s/p CABG Administra tion of pneumococcal vaccine 30456654 Z23 [id number] DIAZ Morrell [facility] [place] [address] [place] [address] 06/06/2024 14:47:52 06/06/2024 15:33:04 Dysfunction of bilateral eustachian tubes 6330396863 870449 H69.93 Sensorineu ral hearing loss 93628022 H90.5 [id number] Paige Lee NP S_[address] [address] 06/10/2024 10:19:09 06/10/2024 10:41:38 Tenosynovitis of left radial styloid 0254502442 5623951 M65.4 [id number] Maggie Vincent MD [facility] [place] [address] [place] [address] 06/20/2024 14:38:43 06/20/2024 15:26:57 Dysfunction of bilateral eustachian tubes 6640300952 102142 H69.93 [id number] Anabella Daniels MD [facility] [address] [place] [address] 07/04/2024 09:46:50 07/04/2024 10:59:22 Diabetes mellitus 83203480 E13.42 under control, Diabetic p eripheral neuropathy 308365869 E11.40 not on gabapentin any more due to side effects Asthma 383696091 J45.90 9 alb inhaler prn, under control Essential hypertension 77531185 I10 under control Carotid ar kecia stenosis 09210995 I65.29 on asa, gets dopplers at cardiology Dysphagia 92679546 R13.1 0 no more symptoms Depressive disorder 3548 9007 F32.9 under control, seeing psych Gastroesop hageal reflux disease 519248060 K21.9 under control with meds Insomnia 955098722 G47.0 0 better with meds Obesity 435768498 E66.9 advised to lose Osteoarthritis 860359183 M19.90 otc Sleep apnea 51809897 G47 .30 on cpap, compliant Vitamin D deficiency 347 18803 E55.9 otc Chronic rhinitis 9098699 6 J31.0 on montelukas t Adult heal th examination 506786453 Z00.00 Mammogram- both breast removedDex a 11/11Colono scopy 2016PCV 13 [id number] 2004,FLU- 3COV ID- 09/22/20, 11/09/20, 05/06/21 Anemia 391922798 D64.9 stable Aortic valve stenosis 60 816030 I35.0 s/p valve replacemen t Hyperlipidemia 76934687 E78.5 stable Non-alcoho lic fatty liver 731200663 K76.0 advised to lose weight Osteopenia 676458996 M85 .80 on otc Coronary arteriosclerosis 76682535 I25.10 s/p CABG Screening for disorder 512999362 Z13.9 [id number] Maggie Vincent MD [facility] [place] [address] [place] [address] 07/24/2024 12:04:01 08/15/2024 10:05:16 Dysfunction of bilateral eustachian tubes 3769259926 816447 H69.93 Dysfunctio n of eustachian tube 03527521 H69.93 [id number] DIAZ Morrell [facility] [place] [address] [place] [address] 08/27/2024 10:45:03 08/27/2024 11:18:24 Postoperative visit 816478637 Z48.89 08/19/2024 postoperat celestino from a bilateral myringotom y with bilateral Eustachian tube balloon dilation. Advised use of Flonase nasal spray 1-2 squirts per nostril daily. She notes that she does have Flonase at home. Follow-up as needed. [id number] Marcelina Ye [facility] [address] [place] [address] 09/11/2024 15:51:00 09/11/2024 16:29:59 Nausea and vomiting 35536705 R11.2 needs EGD [id number] Maggie Vincent MD [facility] [place] [address] [place] [address] 10/10/2024 13:58:42 10/15/2024 12:17:37 Dysfunction of bilateral eustachian tubes 9098169398 888911 H69.93 [id number] Maggie Vincent MD [facility] [place] [address] [place] [address] 11/07/2024 12:08:05 11/13/2024 15:43:31 Dysfunction of bilateral eustachian tubes 7270798264 969216 H69.93 Health Concerns Section Related Observation LastModified by Organization Detai ls LastModified Time None Recorded Concern Status LastModified by Organization Details LastModified Time None Recorded Advance Directives Directive N: Payers Encounter Date Sequence Insurance Name Policy Number Policy Boo Covered Member ID Boo Member ID Guarantor Name 07/24/2024 1 [place] Sanita A Divietro [id number] Sanita A Divietro 07/24/2024 2 [facility] (MEDICARE SUPPLEMENT) PLAN F Sanita A Divietro [id number] Sanita A Divietro 08/27/2024 1 [place] Sanita A Divietro [id number] Sanita A Divietro 08/27/2024 2 [employer] [place] (MEDICARE SUPPLEMENT) PLAN F Sanita A Divietro [id number] Sanita A Divietro 09/11/2024 1 [place] Sanita A Divietro [id number] Sanita A Divietro 09/11/2024 2 [employer] [place] (MEDICARE SUPPLEMENT) PLAN F Sanita A Divietro [id number] Sanita A Divietro 10/10/2024 1 [place] Sanita A Divietro [id number] Sanita A Divietro 10/10/2024 2 [employer] [place] (MEDICARE SUPPLEMENT) PLAN F Sanita A Divietro [id number] Sanita A Divietro 11/07/2024 1 [place] Sanita A Divietro [id number] Sanita A Divietro 11/07/2024 2 [employer] [place] (MEDICARE SUPPLEMENT) PLAN F Sanita A Divietro [id number] Sanita A Divietro Notes Date Note Type Note Provider Name and Address Organization Details Recorded Time 07/24/2024 text/html this patient had an audiogram which demonstrated a type C audiogram on the right and a type B on the left. There is mixed loss bilaterally Maggie Vincent MD [address], [place], [address], [facility]EL 07/24/2024 12:59:24 08/27/2024 text/html This patient presents to the office for a postoperative visit from a bilateral myringotomy with tubes and bilateral Eustachian tube balloon dilation that was completed on 08/19/2024. She does report some continued right ear congestion and diminished hearing. She denies any other complaints. DIAZ Morrell [address], [place], [address], [facility]EL 08/27/2024 11:17:48 09/11/2024 text/html Pt is here today for feeling sick all the time.She has been vomiting a lot lately, can not eat meat.She has lost 26 lbs since last May.Gets abd pain due to dry heavesshe is on trulicity for long time she had EGD and manometry in 2019, wa snl Anabella Daniels MD [address], [place], [address], [place] [facility] [employer] 09/11/2024 16:27:34 10/10/2024 text/html this patient had PE tubes placed last year but reports severe hearing loss since then. She reports that she is unable to tolerate her hearing loss at this point. Maggie Vincent MD [address], [place], [address], ITN 10/10/2024 14:21:52 11/07/2024 text/html this patient had her tubes removed reports that her hearing is unchanged Maggie Vincent MD [address], [place], [address], [facility] 11/07/2024 12:41:25 OBGyn Episode No OBEpisode recorded.
--- OUTSIDE RECORDS SUMMARY | 2024-12-13 08:22 | XMS_ITS | Clinical Summary ---
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 This disclosure is being madepursuant to the Care Everywhere program and may not contain all information available regarding this patient. Last updated 18.[facility] [employer] Allergies Active Allergy Reactions Criticality Noted Date Comments Levofloxacin Psychiatric Medium 08/26/2019 Medications * Be aware that medications may not be up to date on this document. Alwaysverify current medications with the patient. 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 Body Mass Index 41.7 08/26/2019 8:04 AM 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 Plan of Treatment Health Maintenance Due Date Last Done Comments BONE DENSITY TESTING 1960 COLOGUARD (AGES 45-75) - COL ON CA SCREENING 1958 COLON MONITORING 1958 COLONOSCOPY - COLON CA SCREENING 1958 CT COLONOGRAPHY - COLON CA SCREENING 1960 Colorectal Cancer Screening 1958 FIT - COLON CA SCREENING 1958 FLEX SIG - COLON CA SCREENING 1960 MEDICARE AWV 12 MONTHS 1958 HEPATITIS C SCREENING 01/18/1976 DTAP/TDAP/TD VACCINES (1 - Tdap) 1977 PNEUMOCOCCAL VACCINE 50+ (1 of 1 - PCV) 01/23/2008 ZOSTER VACCINE (1 of 2) 01/23/2008 Respiratory Syncytial Virus (RSV) Vaccine Pt: or over 60 yrs (1 - Risk 60-74 years 1-dose series) 2018 COVID-19 VACCINE (1 - 2023-2 5 season) 2024 DEPRESSION SCREENING 08/21/2024 INFLUENZA VACCINE (Season Ended) 2025 HEPATITIS B VACCINE Aged Out No longe [...] on patient's age to complete this topic Insurance [facility] [place] [address] MEDICARE [facility] SELF PAY NO INSURANCE Member Subscriber Plan / Payer (Ef fective for All Dates) Name:Loan Francisco Member ID:Not on file Relation to Subscriber:Not on file Name:LOAN FRANCISCO Subscriber ID:Not on file (Home) Address: [address] [place] [phone] Payer ID:Not on file Group ID:Not on file Type:Self Pay Address: [place], [place] MEDICARE Care Teams Mold Yard Worker Relationship Specialty Start Date End Date Maurice Daniels MD [address] [place] [address] PCP - General Internal Medicine 08/01/19
--- OUTSIDE RECORDS SUMMARY | 2024-12-13 08:22 | XMS_ITS | Clinical Summary ---
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 Occupational Therapy [address] [place] [phone] Ary Spanglre OT Cortical visual impairment (Primary Dx) 12/09/2024 8:30 AM CDT Office Visit [facility] Ophthalmology [address] [facility] [address] [place] [address] Romelia Ayoub MD Cortical visual impairment (Primary Dx) 11/26/2024 9:00 AM CDT Therapy [facility] Occupational [address] [address] Ary Spangler OT Cortical visual impairment (Primary Dx) 11/26/2024 Plan of Care Documentation [facility] Occupational Therapy [address] [place] [phone] 11/19/2024 9:00 AM CDT Therapy [facility] Occupational [address] [phone] Ary Spangler OT Cortical visual impairment (Primary Dx) 11/05/2024 2:30 PM CDT Therapy [address] [address] Ary Spangler OT Cortical visual impairment (Primary Dx) 10/22/2024 12:41 AM DORMITORY MAID - 10/22/2024 11:06 AM [facility] Emergency [facility] Emergency Department [address] [place] [address] Masood Gibson MD COVID-19 virus infection (Primary Dx); Chronic nausea; Chronic abdominal pain; Hypertension, unspecified type Discharge Disposition: Discharge to home or self care 10/01/2024 2:30 PM DORMITORY MAID Therapy [facility] Occupational [address] [address] Ary Spangler OT Cortical visual impairment (Primary Dx) 09/24/2024 9:00 AM DORMITORY MAID Therapy [facility] Occupational [address] [address] Ary Spangler OT Cortical visual impairment (Primary [...] on file Legal Sex Female 5:26 AM DORMITORY MAID Gender Identity Not on file Sexual Orientation Not on file Obstetrics History Last Filed Vital Signs Vital Sign Reading Time Taken Comments Blood Pressure 149/48 10/22/2024 9:30 AM [facility]ORY [facility]ID Pulse 55 10/22/2024 10:45 AM [facility]ORY MAID Temperature 37.1 C (98.7 F) 10/21/2024 11:26 PM [facility]ORY MAID Respiratory Rate 16 10/22/2024 10:45 AM DORMITORY MAID Oxygen Saturation 100% 10/22/2024 10:45 AM [facility]ORM[facility]ORY MAID Inhaled Oxygen Concentration - - Weight 100.7 kg (222 lb) 07/16/2024 10:31 AM [facility]ORY MAID Height 157.5 cm (5' 2 ) 07/16/2024 10:31 AM [facility]ORMITORY MAID Body Mass Index 40.6 07/16/2024 10:31 AM [facility]ORMITORY MAID Plan of Treatment Health Maintenance Due Date [...] 05/03/2022, 12/06/2021, Additional history exists Influenza Vaccine (Season Ended) 2025 06/13/2023, 06/06/2022, 05/14/2021, Additional history exists Dilated Eye Exam 05/27/2025 05/27/2024 Fall Risk Assessment 09/10/2025 09/10/2024, 05/09/20 22 eGFR 10/21/2025 10/21/2024, 05/22, 12/12/2023, Additional history exists Pneumococcal vaccine 65+ Completed 024, 06/06/2018, 07/06/2016 Medical Devices Implanted Type Area Grid Inspector Device Identifier Shelf Expiration Date Model / Serial / Lot [employer] [id number] Inspiris Resilia Leaflet Sewing Ring 21mm Valve Aortic Bovine - [id number] - [id number] Implanted:Qty: 1 on 01/18/2019 by Jeremias Grewal MD at [facility] N/A: Heart [employer] 09/06/2020 [id number] / [id number] / Description:Aortic Valve Procedures Procedure Name Priority Date/Time Associated Diagnosis Comments DC CRITICAL CARE ILL/INJURED PATIENT INIT 30-74 MIN Routine 10/22/2024 10:45 AM DORMITORY MAID POCT GLUCOSE DEVICE Routine 10/22/2024 8 :[address] ABDOMEN PELVIS W CONTRAST ED 10/22/2024 8:46 AM DORMITORY MAID URINALYSIS AND REFLEX TO MICROSCOPIC AND CULTURE STAT 10/22/2024 8:34 AM DORMITORY MAID RESPIRATORY PATHOGEN PANEL STAT 10/22/2024 8:04 AM DORMITORY MAID LIPASE Add-On 10/22/2024 1:59 AM DORMITORY MAID TROPONIN T HIGH-SENSITIVITY 2-HOUR Timed 10/22/2024 1:59 AM DORMITORY MAID XR CHEST 1 VIEW ED 10/22/2024 12:40 AM DORMITORY MAID EGFR STAT 10/21/2024 11:34 PM DORMITORY MAID DIFFERENTIAL AUTO STAT 10/21/2024 11: 34 PM DORMITORY MAID TROPONIN T HIGH-SENSITIVITY SERIES (BASELINE, 2HR, 4HR, 6HR) STAT 10/21/2024 11:34 PM DORMITORY MAID COMPREHENSIVE METABOLIC PANEL STAT 10/21/2024 11:34 PM DORMITORY MAID CBC WITH AUTO DIFFERENTIAL STAT 10/21/2024 11:34 PM DORM[facility]ORY MAID ECG 12-LEAD Routine 10/21/2024 11:29 PM [facility]ORMITORY MAID LIPID PANEL Routine 01/20/2019 2:19 AM CDT HEMOGLOBIN A1C Routine 12/31/2018 1:30 PM CDT Preop testing from Last 3 Months or Most Recently Relevant to Health Maintenance Results * DC CRITICAL CARE ILL/INJURED PATIENT INIT 30-74 MIN (10/22/2024 10:45 AM DORMITORY MAID) Narrative Masood Gibson MD - 10/22/2024 10:45 AM DORMITORY MAID Masood Gibson MD 11/04/2024 7:33 PM Critical [...] Result * POCT glucose (10/22/2024 8:54 AM DORMITORY MAID) Glucose, POC 87 70 - 199 mg/dL Blood 10/22/2024 8:54 AM DORMITORY MAID 10/22/2024 8:54 AM DORMITORY MAID us Masood Gibson MD LAB POCT ORDERABLES - SUKH CE Final Result [facility] [address] [place] [address] * CT Abdomen Pelvis W Contrast (10/22/2024 8:46 AM DORMITORY MAID) Anatomical Region Laterality Modality Body N/A Computed Tomogra phy 10/22/2024 9:20 AM DORMITORY MAID Impressions 10/22/2024 9:20 AM DORMITORY MAID NO ACUTE INTRA-ABDOMINAL FINDINGS Electronically signed by: Larry Eng M.D. Narrative 10/22/2024 9:20 AM [facility]ORY [facility]ID EXAMINATION: CT ABDOMEN PELVIS W CONTRAST DATE: [...] by: Larry Eng M.D. Masood Gibson MD IM CT PROCEDURES Final Re sult * Urinalysis reflex to microscopic and culture Urine (10/22/2024 8:34 AM DORMITORY MAID) Color, ur Yellow Yellow Clarity, ur Clear [...] tendency for uric acid stone formation. Source: [facility] Current Interpretive Data was last revised on 2017 Protein, ur ql Negative Negative [facility] Glucose, ur ql Negative Negative [facility] Ketones, ur Negative Negative [facility] Bilirubin, ur Negative Negative [facility] Blood, ur Negative Negative [facility] Urobilinogen, ur <2.0 <2.0 mg/dL [facility] Nitrite, ur Negative Negative [facility] Leukocyte esterase, ur Negative Negative [facility] UA reflex comment Reflex conditions for microscopic UA and culture not met. [facility] Urine 10/22/2024 8:34 AM DORMITORY MAID 10/22/2024 8:39 AM DORMITORY MAID Masood Gibson MD LAB MICROBIOLOGY - GENERAL ORDERABLES Final Result [facility] [address] [place] [address] * (ABNORMAL) Respiratory pathogen panel Nasopharyngeal (10/22/2024 8:04 AM DORMITORY MAID) Pathologist [facility] Influenza A RNA Not Detected Not Detected Influenza B RNA Not Detected Not Detected [facility] RSV RNA Not Detected Not Detected [facility] COVID-19 RNA Detected(A) Not Detected [facility] Coronavirus 229E RNA Not Detected Not Detected [facility] Coronavirus HKU1 RNA Not Detected Not Detected [facility] Coronavirus NL63 RNA Not Detected Not Detected [facility] Coronavirus OC43 RNA Not Detected Not Detected [facility] Adenovirus DNA Not Detected Not Detected [facility] Metapneumovirus RNA Not Detected Not Detected [facility] Rhinovirus/Enterov irus RNA Not Detected Not Detected [facility] Parainfluenza 1 RNA Not Detected Not Detected [facility] Parainfluenza 2 RNA Not Detected Not Detected [facility] Parainfluenza 3 RNA Not Detected Not Detected [facility] Parainfluenza 4 RNA Not Detected Not Detected [facility] B. pertussis DNA Not Detected Not Detected [facility] B. parapertussis DNA Not Detected Not Detected [facility] C. pneumoniae DNA Not Detected Not Detected [facility] M. pneumoniae DNA Not Detected Not Detected [facility] Comment: Interpretive Data The [employer] FilmArray Respiratory Panel (RP2.1) assay is a [...] assay has FDA clearance for testing of BATTERY CHECKER swabs. The performance characteristics of this assay have been determined by [facility]. Current interpretive data was last revised on 2021. Nasopharyngeal 10/22/2024 8: 04 AM DORMITORY MAID 10/22/2024 8:06 AM [facility] 10/22/2024 9:05 AM DORMITORY MAID Is the Patient experiencing symptoms consistent with COVID?->Yes Surveillance testing for transplant patient?->No Masood Gibson MD LAB MICROBIOLOGY - GENERAL ORDERABLES Final Result Performing Organization Address City/[facility]/ZIP Co de Phone Number [facility] [address] [place] [address] CH * Troponin T high-sensitivity 2-hour (10/22/2024 1:59 AM DORMITORY MAID) Trop T hs 11 <=14 ng/L Comment: Interpretive Data For further hscTnT resources including the diagnostic algorithm and an aid in interpretation, copy and paste this link: https://nrl.testcatalog.org/show/hsTrop Current Interpretive Data last revised 2020. Trop T hs delta 0 ng/L [facility] Trop T hs interp Insignificant [facility] Blood 10/22/2024 1:59 AM DORMITORY MAID 10/22/2024 2:02 AM DORMITORY MAID us Osbaldo Cade MD LAB BLOOD ORDERABLES Final Result Performing Organization Address City/[facility]/ZIP Co de Phone Number [facility] [address] [place] [place] [address] * Lipase (10/22/2024 1:59 AM DORMITORY MAID) Lipase 40 10 - 99 Units/L Blood 10/22/2024 1:59 AM DORMITORY MAID 10/22/2024 2:02 AM DORMITORY MAID Robin GLORIA LAB BLOOD ORDERABLES Final Result [facility] [address] [place] [address] * XR Chest 1 Vw Portable (10/22/2024 12:40 AM DORMITORY MAID) Anatomical Region Laterality Modality Body, Chest N/A Computed Radiogr aphy 10/22/2024 9:01 AM DORMITORY MAID Impressions 10/22/2024 9:01 AM DORMITORY MAID No acute cardiopulmonary findings. Electronically signed by: Danie Betancourt II, D.O. Narrative 10/22/2024 9:01 AM DORMITORY MAID EXAMINATION: XR CHEST 1 VIEW DATE: 10/22/2024 [...] Electronically signed by: Danie Betancourt II, D.O. Osbaldo Cade MD IMG XR PROCEDURES Final Res ult * Troponin T high-sensitivity series (baseline, 2hr, 4hr, 6hr) (10/21/2024 11:34 PM DORMITORY MAID) Trop T hs 11 <=14 ng/L Comment: Interpretive Data For further hscTnT resources including the diagnostic algorithm and an aid in interpretation, copy and paste this link: https://nrl.testcatalog.org/show/hsTrop Current Interpretive Data last revised 2020. Blood 10/21/2024 11:3 4 PM DORMITORY MAID 10/21/2024 11:39 PM DORMITORY MAID Osbaldo Cade MD LAB BLOOD ORDERABLES Final Result [facility] [address] [place] [place] [address] * eGFR (10/21/2024 11:34 PM DORMITORY MAID) eGFR 71 >=60 mL/min/1. 73 m2 Comment: [...] reviewed 2021. Blood 10/21/2024 11:3 4 PM DORMITORY MAID 10/21/2024 11:39 PM DORMITORY MAID us Osbaldo Cade MD LAB BLOOD ORDERABLES Final Result [facility] [address] [place] [address] * Differential, auto (10/21/2024 11:34 PM DORMITORY MAID) Pathologist [facility] Neutrophil abs 5.3 1.5 - 6.5 K/cumm Imm gran abs 0.0 0.0 - 0.1 K/cumm [facility] Lymphocyte abs 3.3 0.8 - 3.3 K/cumm [facility] Monocyte abs 0.7 0.2 - 0.8 K/cumm [facility] Eosinophil abs 0.3 0.0 - 0.5 K/cumm [facility] Basophil abs 0.0 0.0 - 0.1 K/cumm [facility] Neutrophil pct 54.8 % [facility] Comment: Interpretive Data Percent cell count reference ranges are not reported, since discordance with absolute values may lead to misinterpretation of CBC data. Current Interpretive Data was last revised on 2017. Imm gran pct 0.3 % [facility] Comment: Interpretive Data Percent cell count reference ranges are not reported, since discordance with absolute values may lead to misinterpretation of CBC data. Current Interpretive Data was last revised on 2017. Lymphocyte pct 34.3 % [facility] Comment: Interpretive Data Percent cell count reference ranges are not reported, since discordance with absolute values may lead to misinterpretation of CBC data. Current Interpretive Data was last revised on 2017. Monocyte pct 7.1 % [facility] Comment: Interpretive Data Percent cell count reference ranges are not reported, since discordance with absolute values may lead to misinterpretation of CBC data. Current Interpretive Data was last revised on 2017. Eosinophil pct 3.3 % [facility] Comment: Interpretive Data Percent cell count reference ranges are not reported, since discordance with absolute values may lead to misinterpretation of CBC data. Current Interpretive Data was last revised on 2017. Basophil pct 0.2 % [facility] Comment: Interpretive Data Percent cell count reference ranges are not reported, since discordance with absolute values may lead to misinterpretation of CBC data. Current Interpretive Data was last revised on 2017. Blood 10/21/2024 11:3 4 PM DORMITORY MAID 10/21/2024 11:39 PM DORMITORY MAID Osbaldo Cade MD LAB BLOOD ORDERABLES Final Result [facility] [address] [place] [address] * (ABNORMAL) CBC with auto differential (10/21/2024 11:34 PM DORMITORY MAID) WBC 9.7 3.8 - 9.9 K/cumm Hgb 10.0(L) 11.9 - 15.5 g/dL [facility] Hct 32.4(L) 35.6 - 45.5 % [facility] Plt 242 150 - 400 K/cumm [facility] MPV 10.0 9.1 - 12.3 fL [facility] RBC 4.38 3.90 - 5.20 M/cumm [facility] MCV 74.0(L) 81.3 - 96.4 fL [facility] MCH 22.8(L) 27.1 - 33.3 pg [facility] MCHC 30.9(L) 32.3 - 35.7 g/dL [facility] RDW CV 15.4(H) 11.1 - 14.9 % [facility] RDW SD 41.5 35.7 - 48.1 fL [facility] NRBC abs 0.00 0.00 - 0.01 K/cumm [facility] Blood 10/21/2024 11:3 4 PM DORMITORY MAID 10/21/2024 11:39 PM DORMITORY MAID Osbaldo Cade MD LAB BLOOD ORDERABLES Final Result [facility] [address] [place] [address] * Comprehensive metabolic panel (10/21/2024 11:34 PM DORMITORY MAID) Sodium 139 135 - 145 mmol/L Potassium, pl 3.4 3.3 - 4.9 mmol/L [facility] Chloride 105 97 - 110 mmol/L [facility] CO2 22 22 - 32 mmol/L [facility] Anion gap 12 2 - 15 mmol/L [facility] BUN 13 6 - 25 mg/dL [facility] Creatinine 0.89 0.60 - 1.10 mg/dL [facility] Glucose 110 70 - 199 mg/dL [facility] Comment: Interpretive Data Fasting glucose >/= 126 [...] [facility] Blood 10/21/2024 11:3 4 PM DORMITORY MAID 10/21/2024 11:39 PM DORMITORY MAID Osbaldo Cade MD LAB BLOOD ORDERABLES Final Result Performing Organization Address [facility] de Phone Number [facility] [address] [place] [address] * ECG 12 lead (10/21/2024 11:29 PM DORMITORY MAID) 10/21/2024 11:2 9 PM DORMITORY MAID Narrative [facility] - 10/22/2024 11:20 AM DORMITORY MAID Vent Rate: 61 bpm RR Interval: 982 msec DC Interval: 194 msec QRS Duration: 101 msec QT Interval: 390 msec QTC Interval: 392 msec P-R-T [place]: 31 - 0 - 51 degrees IMPRESSION: SINUS RHYTHM NORMAL ECG Electronically Signed By: Isac Souza MD Osbaldo Cade MD ECG ORDERABLES Final Resul t Performing Organization Address [facility] Co de Phone Number [facility] [employer] [facility] * Lipid panel (01/20/2019 2:19 AM CDT) [...] CDT 01/20/2019 2:30 AM CDT Narrative [facility] - 01/20/2019 3:12 AM CDT Mook Green MD LAB BLOOD ORDERABLES Final Resu lt Performing Organization Address [facility] de Phone Number [facility] [address] [email or web address] [address] * (ABNORMAL) Hemoglobin A1c (12/31/2018 1:30 PM CDT) Hgb A1C 7.6(H) 4.0 - 5.6 % [facility] Estimated Average Glucose 171 mg/dL [facility] Comment: The ADA recommends reporting an estimated Average Glucose (eAG) with all Hemoglobin A1c results using the equation derived from a study of 507 normal and diabetic adults. Minority populations were underrepresented and children were not included. (Diabetes Care 31:8027-3092, 2008). The eAG is not equivalent to a fasting glucose. Blood specimen (specimen) 12/31/2018 1:30 PM CDT 12/31/2018 3:16 PM CDT Narrative [facility] - 12/31/2018 5:03 PM CDT Jeremias Grewal MD LAB BLOOD ORDERABLES Final R esult Performing Organization Address [facility] Co de Phone Number [facility] [address] Department [employer] [place], [place] [id number] from Last 3 Months or Most Recently Relevant to Health Maintenance Additional Health Concerns Infection Onset Date Last Indicated COVID: Recovered Comment:Added based on recent COVID infection. 11/01/2024 025 Insurance MEDICARE [facility] MEDICARE [facility] MEDICARE MEDICARE [facility] Advance Directives For more information, please contact: [phone] * Full Code (Latest Code Status on File) Date Activated Date Inactivated Comments 01/29/2019 6:44 PM 02/08/2019 10:55 PM * Full Code Date Activated Date Inactivated Comments 01/18/2019 2:27 PM 01/29/2019 6:14 PM Care Teams Microfilm Machine Operator Relationship Specialty Start Date End Date Maurice Daniels MD PCP - General 12/05/17 Jeremias Grewal MD Surgeon Cardiothoracic Surgery 10/07/19 Brennen Maldonado MD [address] [place] [address] Consulting Physician Hematology and Oncology 05/18/23 Alonso Antunez DNP [address] [place] [address] Nurse Practitioner Hematology and Oncology 05/18/23 Dejuan Butterfield MD [address] [facility] [address] [place] [address] Referring Physician Ophthalmology 01/11/24 John Avila MD [address] [place] [address] Referring Physician Obstetrics and Gynecology 05/27/24 Vin Oliver MD [address] [place] [address] Referring Physician Psychiatry 05/27/24 [place] [address] [facility] [address] [place] [address] Consulting Physician Cardiology 05/27/24 Prabhu Harp NP [address] [place], [place] [id number] Nurse Practitioner Sleep Medicine 05/27/24 Ary Spangler OT [address] [place], [place] [id number] Occupational Therapist Occupational Therapy 09/10/24
--- OUTSIDE RECORDS SUMMARY | 2024-12-13 08:22 | XMS_ITS | CONTINUITY OF CARE DOCUMENT ---
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 GERD active Kvng Valverde MD CAD s/p CABG single vsl SVG-RCA active Kvng Valverde MD Syncope active Silverio Obando Chest discomfort--normal stress nuc 10/2021 active Kvng Valverde MD Cough active Kvng Valverde MD Elevated blood pressure active Silverio Clark i Venous insufficiency active Kvng Valverde MD Leg cramps, bilateral active 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 Hypertension active Kvng Valverde MD Cardiology examination active Silverio Obando Memory impairment active Silverio Obando ENCOUNTERS Date Type Provider Location Encounter Diag nosis - In-person encounter Office Visit Kvng Valverde MD [facility] Carotid artery disease, 50-69% LICA,<50% SAH, 09/2024 - In-person encounter Office Visit Kvng Valverde MD [facility] Fatigue--echo ef nl, ardiology examinationMemory impairment - In-person encounter Office Visit Kvng Valverde MD [facility] - In-person encounter Office Visit Kvng Valverde MD [facility] - In-person encounter Office Visit Kvng Valverde MD [facility] - In-person encounter Office Visit Kvng Valverde MD [facility] AORTIC STENOSIS, s/p 21mm C.E AVR 02/06, single vsl CABG w/SVG to RCA 01/18/19 CNECarotid artery disease, 50-69% LICA,<50% SHA, 09/2024Fatigue--echo ef nl, 05/2024Hypertension - In-person encounter Office Visit Kvng Valverde MD [facility] - In-person encounter Office Visit Kvng Valverde MD [facility] - In-person encounter Office Visit Kvng Valverde MD [facility] Fatigue--echo ef nl, 05/2024 - In-person encounter Office Visit Toney Pulido MD [facility] Leg cramps, bilateral - In-person encounter Office Visit Kvng Valverde MD [facility] Venous insufficiency - In-person encounter Office Visit Kvng Valverde MD [facility] Elevated blood pressure - In-person encounter Office Visit Kvng Valverde MD [facility] - In-person encounter Office Visit Kvng Valverde MD [facility] Cough - In-person encounter Office Visit Kvng Valverde MD [facility] - In-person encounter Office Visit Kvng Valverde MD [facility] Carotid artery disease, 50-69% LICA,<50% SHA, 09/2024Fatigue--echo ef nl, hest discomfort--normal stress nuc 10/2021 - In-person encounter Office Visit Kvng Valverde MD [facility] Fatigue--echo ef nl, 05/2024Syncope - In-person encounter Office Visit Kvng Valverde MD [facility] AORTIC STENOSIS, s/p 21mm C.E AVR 02/06, single vsl CABG w/SVG to RCA 01/18/19 CNECAD s/p CABG single vsl SVG-RCA - In-person encounter Office Visit Kvng Valverde MD [facility] Carotid artery disease, 50-69% LICA,<50% SHA, 09/2024 - In-person encounter Office Visit Kvng Valverde MD [facility] - In-person encounter Office Visit Kvng Valverde MD [facility] - In-person encounter Office Visit Kvng Valverde MD [facility] - In-person encounter Office Visit Kvng Valverde MD [facility] GERD - In-person encounter Office Visit Kvng Valverde MD [facility] - In-person encounter Office Visit Kvng Valverde MD [facility] AORTIC STENOSIS, s/p 21mm C.E AVR 02/06, single vsl CABG w/SVG to RCA 01/18/19 CNEr/o CAD;neg cath 06, neg nuc 13Chest pain - In-person encounter Office Visit Kvng Valverde MD [facility] - In-person encounter Office Visit Kvng Valverde MD [facility] AORTIC STENOSIS, s/p 21mm C.E AVR 02/06, single vsl CABG w/SVG to RCA 01/18/19 CNE - In-person encounter Office Visit Kvng Valverde MD [facility] - In-person encounter Office Visit Kvng Valverde MD [facility] Back pain, lower - In-person encounter Office Visit Kvng Valverde MD [facility] - In-person encounter Office Visit Kvng Valverde MD [facility] Edema - In-person encounter Office Visit Kvng Valverde MD [facility] [place] [facility] - In-person encounter Office Visit Kvng Valverde MD [facility] - In-person encounter Office Visit Kvng Valverde MD [facility] - In-person encounter Office Visit Kvng Valverde MD [facility] Microvascular angina;on ecpFamily History of Hypertension: - In-person encounter Office Visit Kvng Valverde MD [facility] AORTIC STENOSIS, s/p 21mm C.E AVR 02/06, single vsl CABG w/SVG to RCA 01/18/19 CNE - In-person encounter Office Visit Kvng Valverde MD [facility] - In-person encounter Office Visit Knvg Valverde MD [facility] - In-person encounter Office Visit Kvng Valverde MD [facility] - In-person encounter Office Visit Kvng Valverde MD [facility] [place] [facility] - In-person encounter Office Visit Kvng Valverde MD [facility] AORTIC STENOSIS, s/p 21mm C.E AVR 02/06, single vsl CABG w/SVG to RCA 01/18/19 CNE - In-person encounter Office Visit Kvng Valverde MD [facility] Obesity; - In-person encounter Office Visit Kvng Valverde MD [facility] - In-person encounter Office Visit Kvng Valverde MD [facility] Obesity; - In-person encounter Office Visit Mook Green MD [facility] HTN-06/02 ECHO MILD EF 60ASTHMA;per pulmna mdDYSLIPIDEMIA;on rxCHEST PAIN-07/26 CATH NLCHEST PAIN-11/27 NUC NEGCAD-06/02 CAROTID NEGAORTIC STENOSIS, s/p 21mm C.E AVR 02/06, single vsl CABG w/SVG to RCA 01/18/19 CNEDIABETES MELLITUS, TYPE II, UNCONTROLLEDCarotid artery disease, 50-69% LICA,<50% SHA, 09/2024Obesity;Sleep apnea;on cpap - In-person encounter Office Visit Kvng Valverde MD [facility] - In-person encounter Office Visit Kvng Valverde MD [facility] AORTIC STENOSIS, s/p 21mm C.E AVR 02/06, single vsl CABG w/SVG to RCA 01/18/19 CNE - In-person encounter Office Visit Kvng Valverde MD [facility] [facility] - In-person encounter Office Visit Kvng Valverde MD [facility] - In-person encounter Office Visit Kvng Valverde MD [facility] - In-person encounter Office Visit Kvng Valverde MD [facility] VITAL SIGNS Date Observation Value Provider [...] blood pressure, diastolic 81 mm[Hg] [address] [facility] blood pressure, systolic 135 mm[Hg] Esther hernandez [facility] blood pressure, cuff size regular [address] [facility] oxygen saturation, oximetry 99 % Tarah [facility] pulse rate 78 /min Tarah [facility] Body Mass Index (Ratio) 41.15 kg/m2 Champyl garret [facility] weight in kilograms E&M 102.06 kg Champyl garret [facility] weight E&M 225 [lb_av] Tarah [facility] height E&M 62 [in_i] Tarah [facility] height in centimeters E&M 157.[address] [facility] Body Mass Index (Ratio) 42.79 [...] Ja rret blood pressure, systolic 143 mm[Hg] [facility] pulse rate 64 /min Arnulfo oxygen saturation, oximetry 95 % [place] respiratory rate E&M 16 /min [place] weight E&M 227 [lb_av] [place] height E&M 62 [in_i] [facility] y Body Mass Index (Ratio) 40.60 kg/m2 Antwan Valverde MD pulse rate 78 /min [facility] blood pressure, cuff size regular [facility] blood pressure, diastolic 64 mm[Hg] [facility] blood pressure, systolic 118 mm[Hg] [facility] oxygen saturation, oximetry 97 % [facility] respiratory rate E&M 16 /min [facility] weight E&M 222 [lb_av] [facility] height E&M 62 [in_i] [facility] Body Mass Index (Ratio) 39.50 kg/m2 Antwan Valverde MD blood pressure, cuff size regular [facility] blood pressure, diastolic 66 mm[Hg] [facility] blood pressure, systolic 134 mm[Hg] [facility] pulse rate 72 /min [facility] oxygen saturation, oximetry 96 % [facility] respiratory rate E&M 12 /min [facility] weight E&M 216 [lb_av] Arnulfo height E&M 62 [in_i] [facility] y Body [...] Aneudy Mckeon blood pressure, diastolic 69 mm[Hg] Keo Zarate blood pressure, systolic 161 mm[Hg] Coby Zarate oxygen saturation, oximetry 99 % Va Zarate pulse rate 73 /min Vagarret Zarate weight E&M 217 [lb_av] [facility] Elliot blood pressure, cuff size large An thomas Zarate height E&M 62 [in_i] [facility] Zarate Body Mass Index (Ratio) 39.36 kg/m2 Antwan Valverde MD blood pressure, diastolic -1 mm[Hg] Karla nkLogic blood pressure, systolic 133 mm[Hg] Florectia kLogic blood pressure, diastolic 67 mm[Hg] St kendy Yin blood pressure, systolic 133 mm[Hg] Amina Yin oxygen saturation, oximetry 97 % Dottie Yin pulse rate 81 /min Dottie Yin respiratory rate E&M 18 /min Dottie lynchs weight E&M 215.2 [lb_av] Dottie Yin height E&M 62 [in_i] Dottie Yni blood pressure, diastolic 59 mm[Hg] mae Reed blood pressure, systolic 152 mm[Hg] [facility] marleny Reed oxygen saturation, oximetry 98 % [...] ofelia Feldman blood pressure, systolic 132 mm[Hg] [facility] lissette Feldman pulse rate 83 /min Liliana caldwell oxygen saturation, oximetry 97 % Liliana Feldman weight E&M 218 [lb_av] Liliana Catalan john respiratory rate E&M 16 /min Tiffanie evans [place] blood pressure, cuff size large Keyla gilbert [place] height E&M 62 [in_i] Liliana Catalan john [...] Valverde MD respiratory rate E&M 16 /min [facility] blood pressure, diastolic 74 mm[Hg] [facility], [facility] 124 mm[Hg] [facility] oxygen saturation, oximetry 98 % [facility] pulse rate 79 /min [facility] weight E&M 233 [lb_av] [facility] height E&M 62 [in_i] [facility] Body Mass Index (Ratio) 40.97 [...] mm[Hg] Roque Awanam pulse rate 84 /min [place] oxygen saturation, oximetry 98 % Delfino Dixon respiratory rate E&M 16 /min [place] weight E&M 224 [lb_av] Delfino Dixon [...] [lb_av] Jeanine ORonaldo height E&M 62 [in_i] [facility] ORonaldo Body Mass Index (Ratio) 43.53 kg/m2 Antwan Valverde MD blood pressure, cuff size large [facility]ri [facility] blood pressure, diastolic 70 mm[Hg] Ke rri Junior blood pressure, systolic 132 mm[Hg] [place] oxygen saturation, oximetry 98 % Shanice Pacheco respiratory rate E&M 18 /min Shanice live pulse rate 96 /min Shanice Gonzales [facility] weight E&M 238 [lb_av] Shanice Gonzales er [...] blood pressure, diastolic 80 mm[Hg] Da hussein [place] blood pressure, systolic 128 mm[Hg] Dac ia Shen oxygen saturation, oximetry 94 % Amarilis [place] respiratory rate E&M 16 /min Amarilis V oss pulse rate 75 /min Amarilis [place] weight E&M 244 [lb_av] Amarilis Shen height E&M 62 [in_i] Amarilis Shen Body Mass Index (Ratio) 45.17 kg/m2 Antwan Valverde MD blood pressure, diastolic 76 mm[Hg] Da hussein Shen blood pressure, systolic 138 mm[Hg] Dac ia Shen oxygen saturation, oximetry 96 % Amarilis [place] respiratory rate E&M 20 /min Amarilis V oss pulse rate 71 /min Amarilis Shen weight E&M 247 [lb_av] Amarilis Shen height E&M 62 [in_i] Amarilis [place] Body Mass Index (Ratio) 43.93 kg/m2 Antwan Valverde MD pulse rate #2 56 [facility] blood pressure, koehler tolic, second observation 79 mm[Hg] [facility] blood pressure, syst olic, second observation 131 mm[Hg] [facility] oxygen saturation, oximetry 98 % [facility] pulse rate 56 /min [facility] blood pressure, diastolic 79 mm[Hg] Vi ctoria [...] [in_i] Brandan jc pulse rate #2 59 [facility] blood pressure, koheler tolic, second observation 78 mm[Hg] [facility] blood pressure, syst olic, second observation 119 mm[Hg] [facility], [facility]ximetry 98 % Rani [facility] pulse rate 59 /min Rani blood pressure, diastolic 78 mm[Hg] [facility] Ted blood pressure, systolic 119 mm[Hg] Merritt cari Tebid pulse rate #2 65 [facility] blood pressure, koehler tolic, second observation 76 mm[Hg] Rani Tebid blood pressure, syst olic, second observation 132 mm[Hg] Rani Tebid oxygen saturation, oximetry 98 % Rani Tebi pulse rate 65 /min Rani Tebid blood pressure, diastolic 76 mm[Hg] [facility] Tebid blood pressure, systolic 132 mm[Hg] Merritt [...] % Rani d pulse rate 61 /min Stevenson d blood pressure, diastolic 78 mm[Hg] Vi ctoria Tebid blood pressure, systolic 133 mm[Hg] Merritt cari Tebid pulse rate #2 65 [place] d blood pressure, koehler tolic, second observation 73 mm[Hg] Rani d blood pressure, syst olic, second observation 126 mm[Hg] Rani d oxygen saturation, oximetry 98 % Stevenson pulse rate 65 /min Stevenson blood pressure, diastolic 73 mm[Hg] Vi ctoria Ted blood pressure, systolic 126 mm[Hg] Merritt cari Ted pulse rate #2 63 [place] blood pressure, koehler tolic, second observation 76 mm[Hg] [place] blood pressure, syst olic, second observation 135 mm[Hg] Rani oxygen saturation, oximetry 98 % Rani pulse rate 63 /min Stevenson blood pressure, diastolic 76 mm[Hg] Vi ctoria Ted blood pressure, systolic 135 mm[Hg] Merritt cari Tebid pulse rate #2 71 [place] blood pressure, koehler tolic, second observation 76 mm[Hg] Stevenson d blood pressure, syst olic, second observation 125 mm[Hg] Rani d oxygen saturation, oximetry 98 % Rani pulse rate 71 /min Stevenson blood pressure, diastolic 76 mm[Hg] Vi ctoria Tebid blood pressure, systolic 125 mm[Hg] Merritt andersonia Tebid pulse rate #2 68 [place] blood pressure, koehler tolic, second observation 73 mm[Hg] Rani blood pressure, syst olic, second observation 125 mm[Hg] Rani oxygen saturation, oximetry 98 % Rani pulse rate 68 /min Stevenson blood pressure, diastolic 73 mm[Hg] Vi paoria blood pressure, systolic 125 mm[Hg] Merritt cari d pulse rate #2 69 [place] blood pressure, koehler tolic, second observation 78 mm[Hg] Rani blood pressure, syst olic, second observation 129 mm[Hg] Rani oxygen saturation, oximetry 98 % Rani pulse rate 69 /min Stevenson blood pressure, diastolic 78 mm[Hg] Vi [facility] d blood pressure, systolic 129 mm[Hg] Merritt cari d pulse rate #2 72 [place] blood pressure, koehler tolic, second observation 80 mm[Hg] Rani blood pressure, syst olic, second observation 141 mm[Hg] Rani oxygen saturation, oximetry 98 % Rani pulse rate 72 /min Stevenson blood pressure, diastolic 80 mm[Hg] Vi [facility] d blood pressure, systolic 141 mm[Hg] Merritt cari d pulse rate #2 58 [place] blood pressure, koehler tolic, second observation 70 mm[Hg] Rani blood pressure, syst olic, second observation 143 mm[Hg] [place] oxygen saturation, oximetry 98 % Stevenson pulse rate 58 /min [facility] blood pressure, diastolic 70 mm[Hg] Vi paoria d blood pressure, systolic 143 mm[Hg] Merritt andersonia Tebid pulse rate #2 73 [facility] blood pressure, koehler tolic, second observation 74 mm[Hg] [facility] blood pressure, syst olic, second observation 119 mm[Hg] [facility] oxygen saturation, oximetry 98 % [facility] pulse rate 73 /min [facility] blood pressure, diastolic 74 mm[Hg] Vi paoria Ted blood pressure, systolic 119 mm[Hg] [facility]2 69 [facility] blood pressure, koehler tolic, second observation 83 mm[Hg] [facility] blood pressure, syst olic, second observation 139 mm[Hg] [facility] oxygen saturation, oximetry 98 % [facility] pulse rate 69 /min [facility] blood pressure, diastolic 83 mm[Hg] [facility], systolic 139 mm[Hg] [facility]2 64 [place] blood pressure, koehler tolic, second observation 72 mm[Hg] [facility] blood pressure, syst olic, second observation 131 mm[Hg] [facility] oxygen saturation, oximetry 98 % [facility] pulse rate 64 /min [facility] blood pressure, diastolic 72 mm[Hg] Vi [facility] Ted blood pressure, systolic 131 mm[Hg] [facility]2 66 [facility] blood pressure, koehler tolic, second observation 76 mm[Hg] [facility] blood pressure, syst olic, second observation 138 mm[Hg] [facility] oxygen saturation, oximetry 98 % [facility] pulse rate 66 /min [facility] blood pressure, diastolic 76 mm[Hg] Vi ctoria Ted blood pressure, systolic 138 mm[Hg] Merritt cari d pulse rate #2 68 [place] blood pressure, koehler tolic, second observation 79 mm[Hg] Rani blood pressure, syst olic, second observation 125 mm[Hg] [facility] oxygen saturation, oximetry 98 % Rani pulse rate 68 /min Stevenson blood pressure, diastolic 79 mm[Hg] Vi ctoria Ted blood pressure, systolic 125 mm[Hg] Merritt cari d pulse rate #2 65 [place] blood pressure, koehler tolic, second observation 71 mm[Hg] [facility] blood pressure, syst olic, second observation 125 mm[Hg] [facility] oxygen saturation, oximetry 98 % [place] pulse rate 65 /min Rani blood pressure, diastolic 71 mm[Hg] Vi [facility] d blood pressure, systolic 125 mm[Hg] Merritt cari d pulse rate #2 67 [place] blood pressure, koehler tolic, second observation 73 mm[Hg] [facility] blood pressure, syst olic, second observation 130 mm[Hg] Rani oxygen saturation, oximetry 98 % Rani pulse rate 67 /min Rani blood pressure, diastolic 73 mm[Hg] [facility], systolic 130 mm[Hg] Merritt andersonia d pulse rate #2 66 [place] blood pressure, koehler tolic, second observation 71 mm[Hg] Stevenson blood pressure, syst olic, second observation 132 mm[Hg] [facility] oxygen saturation, oximetry 98 % [facility] pulse rate 66 /min Stevenson Tebid blood pressure, diastolic 71 mm[Hg] Vi ctoria Tebid blood pressure, systolic 132 mm[Hg] Merritt cari Tebid pulse rate #2 67 [place] Tebid blood pressure, koehler tolic, second observation 73 mm[Hg] Rani Tebid blood pressure, syst olic, second observation 135 mm[Hg] Rani Tebid oxygen saturation, oximetry 98 % Rani Tebid pulse rate 67 /min Stevenson Tebid blood pressure, diastolic 73 mm[Hg] [facility] Tebid blood pressure, systolic 135 mm[Hg] Merritt cari Tebid pulse rate #2 77 [facility] blood [facility], koehler tolic, second observation 80 mm[Hg] [facility] blood pressure, syst olic, second observation 130 mm[Hg] [facility] oxygen [facility], oximetry 98 % [facility] pulse rate 77 /min Stevenson Tebid blood pressure, diastolic 80 mm[Hg] [facility] Tebid blood pressure, systolic 130 mm[Hg] Merritt cari Tebid pulse rate #2 62 [facility] blood pressure, koehler tolic, second observation 78 mm[Hg] Stevenson Tebid blood pressure, syst olic, second observation 136 mm[Hg] Stevenson Tebid oxygen saturation, oximetry 98 % [facility] pulse rate 62 /min Stevenson Tebid blood pressure, diastolic 78 mm[Hg] [facility] Tebid blood pressure, systolic 136 mm[Hg] Merritt cari Tebid pulse rate #2 91 [facility] blood pressure, koehler tolic, second observation 81 mm[Hg] [facility] blood pressure, syst olic, second observation 117 mm[Hg] [facility] oxygen saturation, oximetry 98 % [facility] pulse rate 91 /min [facility] blood pressure, diastolic 81 mm[Hg] Vi ctoria Tebid blood pressure, systolic 117 mm[Hg] Merritt cari Tebid pulse rate #2 75 [facility] blood pressure, koehler tolic, second observation 71 mm[Hg] [facility] blood pressure, syst olic, second observation 134 mm[Hg] [facility] oxygen saturation, oximetry 98 % [facility] pulse rate 75 /min [facility] blood pressure, diastolic 71 mm[Hg] [facility] Tebid blood pressure, systolic 134 mm[Hg] Merritt cari Tebid pulse rate #2 63 [facility] blood pressure, koehler tolic, second observation 75 mm[Hg] [facility] blood pressure, syst olic, second observation 136 mm[Hg] [facility] oxygen saturation, oximetry 98 % [facility] pulse rate 63 /min [place] d blood pressure, diastolic 75 mm[Hg] Vi paoria Tebid blood pressure, systolic 136 mm[Hg] Merritt cari Tebid pulse rate #2 74 [place] Tebid blood pressure, koehler tolic, second observation 78 mm[Hg] Stevenson Tebid blood pressure, syst olic, second observation 126 mm[Hg] Rani Tebid oxygen saturation, oximetry 98 % [facility] pulse rate 74 /min Stevenson Tebid blood pressure, diastolic 78 mm[Hg] Vi ctoria Tebid blood pressure, systolic 126 mm[Hg] Merritt andersonia Tebid pulse rate #2 71 [place] Tebid blood pressure, koehler tolic, second observation 77 mm[Hg] Rani Tebid blood pressure, syst olic, second observation 135 mm[Hg] Rani bid oxygen saturation, oximetry 98 % Rani bid pulse rate 71 /min Stevenson d blood pressure, diastolic 77 mm[Hg] Vi ctoria Tebid blood pressure, systolic 135 mm[Hg] Merritt cari Tebid pulse rate #2 69 [place] d blood pressure, koehler tolic, second observation 72 mm[Hg] [facility], syst olic, second observation 140 mm[Hg] Rani d oxygen saturation, oximetry 98 % Rani pulse rate 69 /min Stevenson d blood pressure, diastolic 72 mm[Hg] Vi ctoria Tebid blood pressure, systolic 140 mm[Hg] Merritt cari Tebid pulse rate #2 68 [place] d blood pressure, koehler tolic, second observation 74 mm[Hg] Rani d blood pressure, syst olic, second observation 135 mm[Hg] Rani d oxygen saturation, oximetry 98 % Rani d pulse rate 68 /min Stevenson bid blood pressure, diastolic 74 mm[Hg] Vi ctoria Tebid blood pressure, systolic 135 mm[Hg] Merritt cari Tebid pulse rate #2 66 [facility], koehler tolic, second observation 79 mm[Hg] [facility] blood pressure, syst olic, second observation 127 mm[Hg] Rani Tebid oxygen saturation, oximetry 98 % Rani d pulse rate 66 /min Stevenson Tebid blood pressure, diastolic 79 mm[Hg] Vi ctoria Tebid blood pressure, systolic 127 mm[Hg] Merritt cari Tebid pulse rate #2 63 [facility] blood pressure, koehler tolic, second observation 84 mm[Hg] Rani d blood pressure, syst olic, second observation 133 mm[Hg] Rani d oxygen saturation, oximetry 98 % Stevenson pulse rate 63 /min [facility] blood pressure, diastolic 84 mm[Hg] Vi [facility] Ted blood pressure, systolic 133 mm[Hg] Merritt cari Ted pulse rate #2 62 [facility] blood pressure, koehler tolic, second observation 68 mm[Hg] [facility] blood pressure, syst olic, second observation 129 mm[Hg] [facility] [facility] oxygen saturation, oximetry 98 % [facility] pulse rate 62 /min [facility] blood pressure, diastolic 68 mm[Hg] [facility] Ted blood pressure, systolic 129 mm[Hg] Merritt cari Ted pulse rate #2 65 [place] blood pressure, koehler tolic, second observation 81 mm[Hg] [facility], syst olic, second observation 131 mm[Hg] [facility], oxim[facility] 98 % [facility] pulse rate 65 /min [facility] blood pressure, diastolic 81 mm[Hg] [facility] Ted blood pressure, systolic 131 mm[Hg] Merritt [...] tyler Dixon oxygen saturation, oximetry 98 % [place] [facility] respiratory rate E&M 16 /min Delfino Dixon pulse rate 77 /min Delfino Dixon weight E&M 248 [lb_av] [place] [facility] height E&M 62 [in_i] [place] [facility] Body Mass Index (Ratio) 45.21 kg/m2 [...] Natalee Alonso blood pressure, diastolic 71 mm[Hg] Wv taiwo Alonso blood pressure, systolic 126 mm[Hg] [...] Alonso Body Mass Index (Ratio) 45.17 kg/m2 [facility] weight E&M 247 [lb_av] Natalee Alonso blood pressure, diastolic 72 mm[Hg] Wv taiwo Alonso blood pressure, systolic 142 mm[Hg] Cece angelo Alonso pulse rate 86 /min Natalee Alonso oxygen saturation, oximetry 97 % Natalee Alonso respiratory rate E&M 16 /min Natalee Alonso Body Mass Index (Ratio) 45.17 kg/m2 [facility] weight E&M 247 [lb_av] Natalee Alonso blood pressure, diastolic 77 mm[Hg] Me taiwo Patel blood pressure, systolic 164 mm[Hg] Cece Patel pulse rate 72 /min Natalee Patel oxygen saturation, oximetry 99 % Natalee Patel respiratory rate E&M 16 /min Natalee Patel Body Mass Index (Ratio) 45.50 kg/m2 [facility] rodrigo Patel weight E&M 248.8 [lb_av] Natalee Patel Body Mass Index (Ratio) 45.17 kg/m2 [facility] blood pressure, diastolic 65 mm[Hg] Wv taiwo Alonso blood pressure, systolic 133 mm[Hg] [...] Christian lder blood pressure, diastolic 78 mm[Hg] Wv taiwo Alonso blood pressure, systolic 145 mm[Hg] [...] Rani Tebid oxygen saturation, oximetry 97 % [facility], diastolic 78 mm[Hg] [facility] Tebid blood pressure, systolic 139 mm[Hg] [facility] #2 72 [place] Tebi blood pressure, koehler tolic, second observation 65 mm[Hg] Rani Tebid blood pressure, syst olic, second observation 148 mm[Hg] Rani Tebid oxygen saturation, oximetry 97 % Rani Tebid pulse rate 71 /min Rani Tebid blood pressure, diastolic 60 mm[Hg] [facility] Tebid blood pressure, systolic 151 mm[Hg] Merritt cari Tebid pulse rate #2 67 Rani Tebid blood pressure, koehelr tolic, second observation 66 mm[Hg] Rani Tebid [...] pressure, syst olic, second observation 121 mm[Hg] [facility] oxygen saturation, oximetry 97 % [facility] pulse rate 76 /min [facility] blood pressure, diastolic 58 mm[Hg] [facility], systolic 121 mm[Hg] Merritt [facility]cala [facility] pulse rate #2 86 [facility] blood pressure, koehler tolic, second observation 61 mm[Hg] [facility] blood pressure, syst olic, second observation 132 mm[Hg] [facility] oxygen saturation, oximetry 97 % [facility] pulse rate 81 /min [facility] blood pressure, diastolic 66 mm[Hg] [facility], [facility] 144 mm[Hg] Merritt [facility] pulse rate #2 69 [facility] blood pressure, koehler tolic, second observation 64 mm[Hg] [facility] blood pressure, syst olic, second observation 129 mm[Hg] [facility] oxygen saturation, oximetry 97 % [facility] pulse rate 71 /min [facility] blood pressure, diastolic 71 mm[Hg] Vi [facility] blood pressure, systolic 136 mm[Hg] Merritt cari [facility] blood pressure, diastolic 71 mm[Hg] An eatris Tramaine blood pressure, systolic 135 mm[Hg] Ane atris Tramaine pulse rate 88 /min Yarelisatrerica [facility] oxygen saturation, oximetry 97 % Yarelisatrerica Redd respiratory rate E&M 18 /min Angelai kee Redd weight E&M 250 [lb_av] Yarelisatris Tramaine pulse rate #2 77 [facility] blood pressure, koehler tolic, second observation 77 mm[Hg] [facility] blood pressure, syst olic, second observation 135 mm[Hg] Rani Tebid oxygen saturation, oximetry 98 % Rani Tebid pulse rate 73 /min Rani Tebid blood pressure, diastolic 68 mm[Hg] Vi ctoria Tebid blood pressure, systolic 148 mm[Hg] Merritt cari Tebid pulse rate #2 82 [place] Tebid blood pressure, koehler tolic, second observation 74 mm[Hg] Rani Tebid blood pressure, syst olic, second observation 126 mm[Hg] Rani Tebid oxygen saturation, oximetry 98 % Rani bid pulse rate 85 /min Rani bid blood pressure, diastolic 86 mm[Hg] Vi ctoria Tebid blood pressure, systolic 146 mm[Hg] Merritt cari Tebid pulse rate #2 76 [place] Tebid blood pressure, koehler tolic, second observation 80 mm[Hg] Rani bid blood pressure, syst olic, second observation 134 mm[Hg] Rani Tebid oxygen saturation, oximetry 98 % Rani bid pulse rate 82 /min Rani Tebid blood pressure, diastolic 88 mm[Hg] Vi ctoria Tebid blood pressure, systolic 145 mm[Hg] Merritt cari Tebid pulse rate #2 77 [place] Tebid blood pressure, koehler tolic, second observation 72 mm[Hg] Rani Tebid blood pressure, syst olic, second observation 145 mm[Hg] Rani Tebid oxygen saturation, oximetry 98 % Rani bid pulse rate 71 /min Rani Tebid blood pressure, diastolic 69 mm[Hg] Vi ctoria Tebid blood pressure, systolic 148 mm[Hg] Merritt cari Tebid pulse rate #2 66 [place] Tebid blood pressure, koehler tolic, second observation [...] Merritt cari Tebid pulse rate #2 75 [place] Tebid blood pressure, koehler tolic, second observation 65 mm[Hg] Rani Tebid blood pressure, syst olic, second observation 129 mm[Hg] Rani Tebid oxygen saturation, oximetry 98 % Rani bid pulse rate 75 /min [place] Tebid blood pressure, diastolic 82 mm[Hg] Vi ctoria Tebid blood pressure, systolic 145 mm[Hg] Merritt cari Tebid pulse rate #2 73 [place] Tebid blood pressure, koehler tolic, second observation 71 mm[Hg] Rani Tebid blood pressure, syst olic, second observation 134 mm[Hg] Rani Tebid oxygen saturation, oximetry 98 % [facility] 70 /min [facility] blood [facility], diastolic 93 mm[Hg] Vi ctoria Tebid blood pressure, systolic 151 mm[Hg] Merritt cari Tebid pulse rate #2 72 [place] Tebid blood pressure, koehler tolic, second observation 77 mm[Hg] [place] Tebid blood pressure, syst olic, second observation 119 mm[Hg] [place] Tebid oxygen saturation, oximetry 98 % [facility] Tebid pulse rate 74 /min [place] Tebid blood pressure, diastolic 87 mm[Hg] Vi ctoria Tebid blood pressure, systolic 121 mm[Hg] Merritt cari Tebid pulse rate #2 72 [place] Tebid blood pressure, koehler tolic, second observation 81 mm[Hg] Rani Tebid blood pressure, syst olic, second observation 125 mm[Hg] [place] Tebid oxygen saturation, oximetry 98 % [facility] 74 /min [place] Tebid blood pressure, diastolic 70 mm[Hg] Vi ctoria Tebid blood pressure, systolic 130 mm[Hg] Merritt cari Tebid pulse rate #2 82 Rani Tebid blood pressure, koehler tolic, second observation 75 mm[Hg] Rani bid blood pressure, syst olic, second observation 125 mm[Hg] [facility], [facility]xim[facility] 98 % Rani bid pulse rate 83 /min [place] bid blood pressure, diastolic 71 mm[Hg] Vi ctoria Tebid blood pressure, systolic 135 mm[Hg] Merritt cari Tebid pulse rate #2 77 [place] Tebid blood pressure, koehler tolic, second observation 88 mm[Hg] [facility], syst olic, second observation 132 mm[Hg] [facility], oximetry 98 % [facility] pulse [facility] 73 /min [facility] blood [facility], diastolic 76 mm[Hg] Vi ctoria Tebid blood pressure, systolic 138 mm[Hg] Merritt cari Tebid pulse rate #2 76 [place] d blood pressure, koehler tolic, second observation 79 mm[Hg] [facility] blood [facility], syst olic, second observation 126 mm[Hg] [facility], oximetry 98 % [facility] pulse rate 71 /min [place] Tebid blood pressure, diastolic 84 mm[Hg] Vi ctoria Tebid blood pressure, systolic 146 mm[Hg] Merritt andersonia Tebid pulse rate #2 68 [facility] blood [facility], koehler tolic, second observation 80 mm[Hg] [facility] blood pressure, syst olic, second observation 136 mm[Hg] [facility], oximetry 98 % [facility] pulse [facility] 74 /min [facility] blood pressure, diastolic 83 mm[Hg] Vi ctoria Tebid blood pressure, systolic 140 mm[Hg] Merritt cari Tebid pulse rate #2 79 [place] Tebid blood pressure, koehler tolic, second observation 59 mm[Hg] Rani Tebid blood pressure, syst olic, second observation 124 mm[Hg] Rani Tebid oxygen saturation, oximetry 98 % Rani Tebid pulse rate 83 /min [place] Tebid blood pressure, diastolic 65 mm[Hg] Vi ctoria Tebid blood pressure, systolic 133 mm[Hg] Merritt cari Tebid pulse rate #2 80 [place] Tebid blood pressure, koehler tolic, second observation 78 mm[Hg] [facility], syst olic, second observation 127 mm[Hg] [place] Tebid oxygen saturation, oximetry 98 % [facility] Tebid pulse rate 76 /min [place] Tebid blood pressure, diastolic 81 mm[Hg] Vi ctoria Tebid blood pressure, systolic 140 mm[Hg] Merritt cari Tebid pulse rate #2 78 [place] Tebid blood pressure, koehler tolic, second observation 83 mm[Hg] Rani Tebid blood pressure, syst olic, second observation 137 mm[Hg] Rani Tebid oxygen saturation, oximetry 98 % [place] Tebid pulse rate 75 /min [facility] Tebid blood pressure, diastolic 82 mm[Hg] Vi ctoria Tebid blood pressure, systolic 135 mm[Hg] Merritt cari Tebid pulse rate #2 76 [facility], koehler tolic, second observation 81 mm[Hg] [facility] blood [facility], syst olic, second observation 145 mm[Hg] [place] Tebid oxygen saturation, oximetry 98 % Rani [...] % Rani Tebid pulse rate 68 /min [place] Tebid blood pressure, diastolic 91 mm[Hg] Vi ctoria Tebid blood pressure, systolic 134 mm[Hg] Merritt cari Tebid pulse rate #2 82 [place] Tebid blood pressure, koehler tolic, second observation 86 mm[Hg] Rani Tebid blood pressure, syst olic, second observation 140 mm[Hg] Rani Tebid oxygen saturation, oximetry 98 % [facility] Tebid pulse rate 73 /min [place] Tebid blood pressure, diastolic 89 mm[Hg] Vi ctoria Tebid blood pressure, systolic 143 mm[Hg] Merritt cari Tebid pulse rate #2 82 [place] Tebid blood pressure, koehler tolic, second observation 77 mm[Hg] Rani Tebid blood pressure, syst olic, second observation 135 mm[Hg] Rani Tebid oxygen saturation, oximetry 98 % [place] Tebid pulse rate 73 /min [place] Tebid blood pressure, diastolic 89 mm[Hg] Vi ctoria Tebid blood pressure, systolic 148 mm[Hg] Merritt cari Tebid pulse rate #2 77 [place] Tebid blood pressure, koehler tolic, second observation 83 mm[Hg] Rani Tebid blood pressure, syst olic, second observation 146 mm[Hg] [facility], oxim[facility] 98 % Rani bid pulse rate 83 /min [place] bid blood pressure, diastolic 90 mm[Hg] Vi ctoria Tebid blood pressure, systolic 148 mm[Hg] Merritt cari Tebid pulse rate #2 73 [place] bid blood pressure, koehler tolic, second observation 61 mm[Hg] Rani d blood pressure, syst olic, second observation 130 mm[Hg] [facility], oximetry 98 % Rani d pulse rate 76 /min [place] d blood pressure, diastolic 65 mm[Hg] Vi ctoria Tebid blood pressure, systolic 139 mm[Hg] Merritt cari Tebid pulse rate #2 74 [place] d blood pressure, koehler tolic, second observation 89 mm[Hg] [facility], syst olic, second observation 132 mm[Hg] Rani bid oxygen saturation, oximetry 98 % Rani d pulse rate 75 /min [place] bid blood pressure, diastolic 91 mm[Hg] Vi ctoria Tebid blood pressure, systolic 158 mm[Hg] Merritt cari Tebid pulse rate #2 73 Rani Tebid blood pressure, koehler tolic, second observation 82 mm[Hg] Rani bid blood pressure, syst olic, second observation 125 mm[Hg] Rani Tebid oxygen saturation, oximetry 98 % Rain d pulse rate 74 /min [place] bid blood pressure, diastolic 93 mm[Hg] Vi ctoria Tebid blood pressure, systolic 152 mm[Hg] Merritt cari Tebid pulse rate #2 81 [place] Tebid blood pressure, koehler tolic, second observation 85 mm[Hg] [facility] blood pressure, syst olic, second observation 142 mm[Hg] [facility] oxygen saturation, oximetry 98 % [facility] pulse rate 82 /min [facility] blood pressure, diastolic 68 mm[Hg] Vi ctoria Tebid blood pressure, systolic 142 mm[Hg] Merritt cari Tebid pulse rate #2 78 [place] [facility] blood pressure, koehler tolic, second observation 73 mm[Hg] [facility] blood pressure, syst olic, second observation 122 mm[Hg] [place] Tebid oxygen saturation, oximetry 98 % [facility] pulse rate 75 /min [facility] blood pressure, diastolic 81 mm[Hg] [facility] Tebid blood pressure, systolic 138 mm[Hg] Merritt alcala Tebid Body Mass Index (Ratio) 46.63 kg/m2 Arlene wallace Alonso blood pressure, diastolic 65 mm[Hg] Wv taiwo Alonso blood pressure, systolic 121 mm[Hg] [...] [employer] 3.5-5.2 sodium, serum 142 mmol/L [employer] [phone]/08/ 19 urea nitrogen/creatinine ratio, serum 16 [employer] [...] 0-149 High cholesterol, serum 168 mg/dL [employer] [phone]/09/ 07 hemoglobin A1C, blood, as % of [...] Not Estab. platelet count 206 X10E3/UL [employer] [phone]/09/ 07 red blood cell distribution width 15.1 [...] [employer] 3.5-5.2 sodium, serum 141 mmol/L [employer] [phone]/09/ 07 urea nitrogen/creatinine ratio, serum 20 [employer] [...] iron binding capacity, unsaturated 227 ug/dL [employer] [phone]/02/ 06 iron binding capacity, total 281 ug/dL [employer] [phone]/02/ 06 basophil count, absolute 0.0 x10E3/uL [employer] [...] Not Estab. platelet count 277 X10E3/UL [employer] [phone]/02/ 06 red blood cell distribution width 15.7 [...] 9.0-11.5 platelet count 245 THOUSAND/U L [employer] [phone]/10/ 02 Absolute Basophils 0.0 CELLS/UL [employer] 0.0-0.2 [...] [employer] 3.5-5.1 sodium, serum 140 mmol/L [employer] [phone]/10/ 02 creatinine, serum 0.8 mg/dL [employer] 0.5-0.9 [...] 3.5 - 5.1 sodium, serum 145.0 [facility] - 145.0 creatinine, serum 0.7 [...] - 1.2 urea nitrogen, blood 15.0 mg/dL [facility] 6[facility] - 20.0 blood glucose, random 136.0 mg/dL [facility] 74.0 - 99.0 High nitrate usage None Rani Tebid hemoglobin A1C, blood, as % of total hemoglobin 10.9 % [facility] thyroid stimulating hormone, serum 1.120 u[IU]/mL [facility] very low density lipoproteins 52 mg/dL [facility] triglyceride, serum, fasting 260 mg/dL [facility] HDL cholesterol, serum 48 mg/dL [facility] LDL cholesterol, serum 118 mg/dL [facility] cholesterol, serum 218 mg/dL [facility] albumin/globulin ratio, serum 1.3 [facility] protein, total, serum 7.2 g/dL [facility] albumin, serum 4.1 g/dL [facility] bilirubin, serum, total 0.4 mg/dL [facility] alkaline phosphatase, serum 72 1/L [facility] alanine aminotransferase (SGPT), serum 15 1/L [facility] aspartate aminotransferase (SGOT), serum 15 1/L [facility] calcium, serum 9.5 mg/dL [facility] blood glucose, fasting 170 mg/dL [facility] creatinine, serum 0.70 mg/dL [facility] urea nitrogen, blood 8 mg/dL [facility] carbon dioxide, serum, total 17 mmol/L [facility] chloride, serum 99 mmol/L [facility] potassium, serum 4.0 mmol/L [facility] sodium, serum 135 mmol/L [facility] thyroid stimulating hormone, serum 0.94 u[IU]/mL [facility] thyroxine, serum, total 8.1 ug/dL [facility] triglyceride, serum, fasting 182 mg/dL [facility] HDL cholesterol, serum 54 mg/dL [facility] LDL cholesterol, serum 102 mg/dL [facility] cholesterol, serum 192 mg/dL [facility] blood glucose, fasting 113 mg/dL [facility] creatinine, serum 0.9 mg/dL [facility] urea nitrogen, blood 11 mg/dL [facility] carbon dioxide, serum, total 29 mmol/L [facility] chloride, serum 104 mmol/L [facility] potassium, serum 3.8 mmol/L [facility] sodium, serum 140 mmol/L David Mason platelet count 277 10*3/uL David Mason hematocrit, blood 36.5 % David Mason hemoglobin, blood 11.5 g/dL David Mason leukocyte count, blood 11.5 10*3/mm3 David Mason HISTORY OF MEDICATION USE Medication Status Instructions Dates Provider Indications Com ments amoxicillin 500 mg tablet active Take 4 tablet by mouth single dose 1 hr prior to procedure Kvng Valverde MD ondansetron 4 mg tablet,disintegr ating active Silverio Obando propranolol 20 mg tablet active Take 1 tablet by mouth once a day as needed for rapid heart rate and palpitations Silverio Clarki losartan 50 mg tablet active Take 1 tablet by mouth twice a day Shanice Pacheco losartan 50 mg tablet completed - Silverio Obando atorvastatin 80 mg tablet active Take 1 tablet by mouth every evening Silverio bOando clopidogrel 75 mg tablet completed TAKE 1 TABLET BY MOUTH EVERY DAY - Silverio Ahmedzai clopidogrel 75 mg tablet completed TAKE 1 TABLET BY MOUTH EVERY DAY - April [place] [facility] clopidogrel 75 mg tablet completed Take 1 tablet by mouth once a day - Parris Valdes albuterol sulfate 2.5 mg/3 mL (0.083 %) solution for nebulization completed INHALE THE CONTENTS OF 1 VIAL VIA NEBULIZER EVERY 4-6 HRS NEEDED FOR SHORTNESS OF BREATH/WHEEZIN G - Silverio Obando Symbicort 160-4.5 mcg/actuation HFA aerosol inhaler active Silverio Obando ezetimibe 10 mg tablet active TAKE 1 TABLET BY MOUTH EVERY DAY Kvng Valverde MD Zetia 10 mg tablet completed Take 1 tablet by mouth once a day - Keli Tyler Medrol (Ismael) 4 mg tablets,dose pack completed Take by mouth as directed following package instructions - Silverio Tusharbernadinezaamor azithromycin 250 mg tablet completed Take 1 tablet by mouth once a day One tablet a day x 5 days - Silverio Ahmedzai furosemide 20 mg tablet active TAKE 1 TABLET BY MOUTH EVERY DAY Ct Valdivia Zetia 10 mg tablet completed Take 1 tablet by mouth once a day - Silverio Horvathzai lamotrigine 100 mg tablet active Keli Jayson ALPHA-LIPOIC ACID 300 MG ORAL TABLET completed one tab once daily - Shanice Pacheco Fatigue--ech o ef nl, 05/2024 zolpidem 10 mg tablet active as needed Camilla Chand Fatigue--ech o ef nl, 05/2024 #45, 30 days supply, Prescribed by VINCE GALLAGHER, Filled 10/18/2018 ergocalciferol (vitamin D2) 1,250 mcg (50,000 unit) capsule active Take 1 capsule by mouth once a week Chastity Jagruti #12, 84 days supply, Prescribed by JUVENCIO CRAWFORD, Filled 01/16/2020 Trulicity 0.75 mg/0.5 mL pen injector active Inject 1 once a week Chastity Jagruti #2, 28 days supply, Prescribed by JUVENCIO CRAWFORD, Filled 09/08/2020 metformin (Fortamet) 1,000 mg tablet extended release 24hr completed Take 1 tablet twice a day - Silverio Ahmedzai VITAMIN E 180 MG ORAL CAPSULE completed Take 1 capsule once a day - Silverio Finleymedzaamor VITAMIN D (CHOLECALCIFEROL ) 25 MCG (1000 UT) ORAL TABLET completed take 1 tab daily - Shanice Pacheco DICYCLOMINE HCL 10 MG ORAL CAPSULE completed one tab three times daily - David Larson Lipitor 80 mg tablet completed 1 tablet once a day - Silverio Horvathzai #90, 90 days supply, Prescribed by MAURICE DANIELS, Filled 12/03/2018 FOLIC ACID 1 MG ORAL TABLET completed TAKE 1 TABLET BY MOUTH EVERY DAY - Camilla Chand #30, 30 days supply, Prescribed by JESSICA GRAHAM, Filled 02/08/2019 topiramate 25 mg tablet completed TAKE 1 TABLET BY MOUTH EACH MORNING AND 2 TABLETS BY MOUTH EACH NIGHT - Silverio Finleymedzai #90, 30 days supply, Prescribed by VINCE [...] Silverio Obando aspirin 81 mg tablet,delayed release (/EC) active 1 tablet by mouth once a day Jeanine Nowak'Ronaldo VIIBRYD 20 MG ORAL TABLET completed once [...] SOLUTION PEN-INJECTOR completed as directed - Jeanine Nowak'Ronaldo LASIX 20 MG ORAL TABLET completed one [...] times a day as needed - Silverio Ahmedzai AMBIEN 5 MG ORAL TABLET completed 1 tab - Shanice Pacheco AMARYL 2 MG ORAL TABLET completed 1 1/2 tab daily - Hill Armenta ZITHROMAX PACKET completed use for 5 days as directed - Toño Mann RN KLOR-CON 10 10 MEQ ORAL TABLET EXTENDED RELEASE completed 1 tablet by mouth daily - Toño Mann RN PRISTIQ [id number] completed daily - Toño Mann RN ZETIA 10 MG ORAL TABLET completed 1 tablet by mouth daily - Natalee Alonso CRESTOR 20 MG ORAL TABLET completed ONE TAB. DAILY - Natalee Alonso ACTOS TABLET completed daily - Hill Betancourtacostorm Lamictal 100 mg tablet completed 1 tablet once a day - Silverio Obando ASPIRIN 81 MG ORAL TABLET completed ONE TAB. DAILY - Natalee Alonso BUSPIRONE HCL 30 MG ORAL TABLET completed 2 tablets by mouth daily - Toño Mann RN SPIRIVA HANDIHALER CAPSULE completed 1 puff daily - Toño Mann RN ASMANEX completed 220 mcg daily - Hill Manacostorm ZETIA 10 MG ORAL TABLET completed daily - Hill Betancourtacop VERAMYST 27.5 MCG/SPRAY NASAL SUSPENSION completed daily [...] completed TWO TAB ONCE DAILY - Delfino Zack COREG 3.125 MG ORAL TABLET completed BID - Natalee Alonso BYETTA 10 MCG PEN 10 MCG/0.04ML SUBCUTANEOUS SOLUTION PEN-INJECTOR completed BID - Shnaice Pacheco ABILIFY 5 MG ORAL TABLET completed daily - Hill Armenta ALPRAZOLAM TABLET completed 0.25 PRN - Toño Mann RN SOCIAL HISTORY Date Observation Value Provider drug use none Silverio Obando alcohol use no Silverio Clarkamor passive cigarette sm jese exposure no Silverio Clarkamor smoking status Never smoker Silverio Horvathtulio drug use none Silverio Clarkamor alcohol use no Silverio Clarkamor passive cigarette sm jese exposure no Silverio Clarkamor smoking status Never smoker Silverio Horvathtulio drug use none Silverio Clarkamor alcohol use no Silverio Clarkamor passive cigarette sm jese exposure no Silverio Clarkamor smoking status Never smoker Silverio Horvathtulio drug use none Erwin David alcohol use no Erwin [place] passive cigarette sm jese exposure no Erwin [place] smoking status Never smoker Erwin David drug use none Silverio Horvathtulio alcohol use no Silverio Clarkamor passive cigarette sm jese exposure no Silverio Clarkamor smoking status Never smoker Silverio Horvathtulio drug use none Silverio Clarkamor alcohol use no Silverio Horvathtulio passive cigarette sm jese exposure no Silverio Horvathtulio smoking status Never smoker Silverio Horvathtulio drug use none Silverio Horvathtulio alcohol use no Silverio Clarkamor passive cigarette sm jese exposure no Silverio Clarkamor smoking status Never smoker Silverio Finleyclaudette social history E&M Marital Statu s: Single L peewee with family/friends E thnicity: Smoking History: P yasmin has never smoked. Silverio Obando smoking status Never smoker Lisa Brianna social history reviewed E&M revi ewed - no changes required Silverio Obando social history reviewed E&M revi ewed - no changes required Silverio Obando smoking status Never smoker Raven rae [facility] social history reviewed E&M revi ewed - no changes required Raven Siddiqui [facility] physical exercise, frequency, days per week no Vagarret Zarate caffeine use, averag e drinks per day yes Va Zarate passive cigarette sm jese exposure no Va Zarate social history E&M Marital Statu s: Single L peewee with family/friends E thnicity: Smoking History: P yasmin has never smoked. Kvng Valvered MD social history reviewed E&M revi ewed [...] passive cigarette sm jese exposure no Liliana Feldman smoking status Never smoker Liliana Martines social history reviewed E&M revi ewed - no changes required Silverio Obando social history E&M Marital Statu s: Single L peewee with family/friends E thnicity: Smoking History: P atdenilson has never smoked. Kvng Valverde MD physical [...] exercise, frequency, days per week no Shanice Aburtoandrea caffeine use, averag e drinks per day yes Shanice Aburtoandrea passive cigarette sm jese exposure no Shanice Pacheco smoking status Never smoker Shanice chamberlain drug use none Vince Temo David alcohol use no Vince Plascencia David social history E&M Marital Statu s: Single L peewee with family/friends E thnicity: S moking History: P yasmin has never smoked. Vince Hernandez social history reviewed E&M revi ewed - no changes required Vince Hernandez social history E&M Marital Statu s: Single L peewee with family/friends E thnicity: Smoking History: P atdenilson has never smoked. Kvng Valverde MD social history reviewed E&M revi ewed - no changes required Gus Potts physical exercise, frequency, days per week no David Paredesyyum caffeine use, averag e drinks per day yes David Paredesyyum passive cigarette sm jese exposure no David Paredesyyum smoking status Never smoker David Nazarioyum social history E&M Marital Statu s: Single L peewee with family/friends E thnicity: Smoking History: P atdenilson has never smoked. Kvng Valverde MD social history reviewed E&M revi ewed - no changes required Kvng Valverde MD physical exercise, frequency, days per week no Zonia Ochoa caffeine use, averag e drinks per day yes Zonia Ochao passive cigarette sm jese exposure no Zonia Ochoa smoking status Never smoker Zonia rivera social history E&M Marital Statu s: Single L peewee with family/friends E thnicity: Smoking History: P atdenilson has never smoked. Kvng Valverde MD social history reviewed E&M revi ewed - no changes required Kvng Valverde MD physical exercise, frequency, days per week [facility], averag e drinks per day [facility] passive cigarette sm jese exposure [facility] social [facility] E&M Marital Statu s: Single L peewee with family/friends E thnicity: Smoking History: Storm hoffman has never smoked. Kvng Valverde MD social history reviewed E&M revi ewed - no changes required Kvng Valverde MD physical exercise, frequency, days per week no Zonia Ochoa caffeine use, averag e drinks per day yes Zoniagarret Ochoa passive cigarette sm jese exposure no Zonia Don smoking status Never smoker Zonia Jose D rivera social history reviewed E&M revi ewed - no changes required Kvng Valverde MD social history E&M Marital Statu s: Single L peewee with family/friends E thnicity: Smoking History: Storm hoffman has never smoked. Kvng Valverde MD physical exercise, frequency, days per week no [facility] alcohol use, average drinks per day no [facility] alcohol use no [facility] caffeine use, averag e drinks per day yes [facility] drug use none [facility] passive cigarette sm jese exposure no [facility] smoking status Never smoker [facility] reviewed E&M revi ewed - no changes required Kvng Valverde MD physical exercise, frequency, days per week no Jeanine O'Ronaldo alcohol use, average drinks per day no Jeanine O'Ronaldo alcohol use no Jeanine O'Ronaldo caffeine use, averag e drinks per day yes Jeanine O'Ronaldo drug use none Jeanine O'Ronaldo passive cigarette sm jese exposure no Jeanine O'Ronaldo smoking status Never smoker Jeanine Nowak'Ronaldo social history reviewed E&M revi ewed - no changes required Kvng Valverde MD physical exercise, frequency, days per week no Shanice Benoitblancoandrea alcohol use, average drinks per day no Shanice Benoitblancoandrea alcohol use no Shanice Gonzales lder caffeine use, averag e drinks per day yes Shanice Benoitblancoer drug use none Shanice Gonzales lder passive cigarette sm jese exposure no Shanice Benoitradha smoking status Never smoker Shanice Tomlin cintia [...] Brandan Etienne alcohol use no Brandan Velarde nson caffeine use, averag e drinks per day yes Brandan Etienne drug use none Brandan Velarde nson passive cigarette sm jese exposure no Brandan Etienne smoking status Never smoker Brandan Higgins social history reviewed E&M revi ewed - no changes required Azra Becerril physical exercise, frequency, days per week no Azra Jone alcohol use, average drinks per day no Azra [place] alcohol use no Azra Jone caffeine use, averag e drinks per day yes Azra Jone drug use none Azra Jone passive cigarette sm jese exposure no Azra Jone smoking status Never smoker Azra Jone social history reviewed E&M revi ewed - no changes required Kvng Valverde MD physical exercise, frequency, days per week no Delfino Dixon alcohol use, average drinks per day no Delfino Dixon alcohol use no [place] Dixon caffeine use, averag e drinks per day yes Delfino Dixon drug use none Delfino Dixon passive cigarette sm jese exposure no Delfino Dixon smoking status Never smoker Delfino laurent social history reviewed E&M revi ewed - no changes required Kvng Valverde MD physical exercise, frequency, days per week no Brandan Etienne alcohol use, average drinks per day no Brandan Etienne alcohol use no Brandan Velarde nson caffeine use, averag e drinks per day yes Brandan Etienne drug use none Brandan drakeon passive cigarette sm jese exposure no Brandan Etienne smoking status Never smoker Brandan Higgins social history reviewed E&M revi ewed - no changes required Natalee Alonso physical exercise, frequency, days per week no Natalee Alonso alcohol use, average drinks per day no Natalee Greeneann alcohol use no Natalee Alonso caffeine use, averag e drinks per day yes Natalee Greeneann drug use none Natalee Greeneann passive cigarette sm jese exposure no Natalee Alonso smoking status Never smoker Natalee Greenekeo caballero social history reviewed E&M revi ewed - no changes required Kvng Valverde MD physical exercise, frequency, days per week no Natalee Alonso alcohol use, average drinks per day no Natalee Gavin alcohol use no Natalee Alonso caffeine use, averag e drinks per day yes Natalee Alonso drug use none Natalee Alonso passive cigarette sm jese exposure no Natalee Gavin smoking status Never smoker Natalee Tristin caballero social history reviewed E&M revi ewed - [...] yes Natalee Alonso drug use none Natalee Alonos passive cigarette sm jese exposure no Natalee Alonso smoking status Never smoker Natalee Crow n social history reviewed E&M revi ewed - no changes required Kvng Valverde MD smoking status Never smoker Cathy Wu social history reviewed E&M revi ewed - no changes required Kvng Valverde MD alcohol use no Shanice tamayo smoking status Never smoker Shanice chamberlain social history reviewed E&M revi ewed - no changes required Kvng Valverde MD physical exercise, frequency, days per week no Nataleegi Alonso alcohol use, average drinks per day no Natalee Alonso alcohol use no Natalee Alonso caffeine use, averag e drinks per day yes Natalee Alonso drug use none Natalee Alonso passive cigarette sm jese exposure no Natalee Alonso smoking status Never smoker Natalee Crow n social history reviewed E&M isai shields - no changes required Kvng Valverde MD alcohol use no Shanice Gonzales lder smoking status Never smoker Shanice Tomlin cintia [...] level yes Rani Tebid energy level yes Stevenson Tebid energy level yes Rani Tebid energy [...] level yes Rani Tebid energy level yes Rain Tebid energy level yes Rani Tebid energy level yes Stevenson Tebid energy level no Stevenson Tebid energy level no Stevenson Tebid energy level no Stevenson Tebid energy level yes Stevenson Tebid energy level yes Stevenson Tebid energy level yes Stevenson Tebid energy level yes Stevenson Tebid energy level yes Stevenson Tebid energy level yes Stevenson Tebid energy level yes Stevenson Tebid energy level yes Stevenson Tebid energy level yes Stevenson Tebid energy level yes Stevenson Tebid energy level yes Stevenson Tebid energy level yes Stevenson Tebid energy level yes Stevenson Tebid energy level yes Stevenson Tebid energy level yes Stevenson Tebid energy level yes Stevenson Tebid energy level yes Stevenson Tebid energy level yes Stevenson Tebid energy level yes Stevenson Tebid energy level yes Stevenson Tebid energy level yes Stevenson Tebid energy level yes Stevenson Tebid energy level yes Stevenson Tebid energy level yes Stevenson Tebid energy level yes Stevenson Tebid energy level yes Stevenson Tebid energy level yes Stevenson Tebid energy level no Stevenson Tebid energy level no Stevenson Tebid energy level yes Stevenson Tebid energy level no Stevenson Tebid energy level no Stevenson Tebid energy level no Stevenson Tebid energy level yes Stevenson Tebid energy level no Stevenson Tebid assessment of judgme nt and insight [...] RN FAMILY HISTORY Family Member Condition Father [place] male <55 Mother Family History of Hy pertension: Mother Family History of Di abetes: Mother Family History Breas t Cancer: Father Family History Coron yash Heart Disease male < 55: INSURANCE PROVIDERS Payer name Policy type / Coverage type [employer] party ID [facility] [employer] [phone] [place] MED[place] Medicare [id number] ADVANCE DIRECTIVES Name Date DISCUSSED - NO DECISION MADE TREATMENT PLAN Date Name Performer [id number],S, Silverio Ahmedza i [id number],S, Silverio Ahmedza i [id number],S, Silverio Ahmedza i [id number],S, Silverio Ahmedza i [id number],S, Silverio Ahmedza i [id number],S, Silverio Ahmedza i [id number],S, Silverio Ahmedza i [id number],B, Silverio Ahmedza i [id number],S, Silverio Ahmedza i [id number],S, Silverio Ahmedza i [id number],S, Silverio Ahmedza i [id number],S, Silverio Ahmedza i [id number],S, Silverio Ahmedza i [id number],S, Silverio Ahmedza i [id number],B,Pt reports no SOB today Toney Pulido MD [id number],S,P t tried multiple types of compression stockings without helping symptoms. W ill proceed with Venaseal of right leg. Also discussed customized stockings Toney Pulido MD [id number],S,161/69 today Toney Pulido MD [id number],S,P t reports some leg cramping and more pain/swelling in her right leg. Cramping has been somewhat improving. Toney Pulido MD [id number],W, Kvng Valverde MD [id number],S, Kvng Valverde MD [id number],S, Kvng Valverde MD [id number],B, Kvng Valverde MD [id number],S, Kvng Valverde MD [id number],S, Silverio Clark i [id number],S, Silverio Finleymedza i [id number],S, Silverio Ahmedza i [id number],S, Silverio Ahmedza i [id number],S, Silverio Ahmedza i [id number],S, Silverio Ahmedza i [id number],S, Silverio Ahmedza i [id number],S, Silverio Ahmedza i [id number],S, Silverio Ahmedza i [id number],S, Silverio Ahmedza i [id number],S, Silverio Ahmedza i [id number],S, Silverio Ahmedza i [id number],S, Silverio Ahmedza i [id number],S, Silverio Ahmedza i [id number],S, Silverio Ahmedza i [id number],S, Silverio Ahmedza i [id number],S, Silverio Ahmedza i [id number],S, Silverio Ahmedza i [id number],S, Silverio Ahmedza i [id number],S, Silverio Ahmedza i [id number],S, Silverio Ahmedza i [id number],S, Silverio Ahmedza i [id number],S, Silverio Ahmedza i [id number],S, Silverio Ahmedza i [id number],S, Silverio Ahmedza i [id number],S, Silverio Ahmedza i [id number],S, Silverio Ahmedza i [id number],S, Silverio Ahmedza i [id number],S, Silverio Ahmedza i [id number],S, Silverio Ahmedza i [id number],S, Silverio Ahmedza i [id number],S, Silverio Ahmedza i [id number],S, Silverio Ahmedza i [id number],S, Silverio Ahmedza i [id number],S, Silverio Ahmedza i [id number],S, Silverio Ahmedza i [id number],S, Silverio Ahmedza i [id number],S, Kvng Valverde MD [id number],W, Kvng Valverde MD [id number],B, Kvng Valverde MD [id number],B, Kvng Valverde MD [id number],W, Kvng Valverde MD Cardiology: O rders: C BC (INCLUDES DIFF/PLT) (6399) F ERRITIN (457) I JONG AND TOTAL IRON BINDING CAPACITY (7573) C OMPREHENSIVE METABOLIC PANEL, W/EGFR (46691) L IPID PANEL (7600) PROBNP, N TERMINAL (62588) T SH, free T4, total T3 (7444) [...] Kvng Valverde MD Cardiology Silverio Obando Cardiology [facility] Cardiology: H er updated medication list for this problem includes: Aspirin 81 Mg Tablet,delayed Release (dr/ec) (Aspirin) ..... 1 tablet by mouth once a day Orders: M onitor - Telemetry (Mobile Cardiac) (CPT-74642) [facility] Cardiology: H er updated medication list for [...] (Dulaglutide) ..... Inject 1 once a week [facility] Cardiology [facility] Card[facility] Cardiology [facility] Cardiology: H er updated medication list for [...] 54 (04/08/2021) LDL: 83 (04/08/2021) T (04/08/2021) [facility] Cardiology [facility] Card[facility] Cardiology:This visi t has been a part of the consistent, comprehensive, and ongoing management of the chronic medical condition(s) listed above for the patient. Kvng Valverde MD Cardiology [facility] Cardiology [facility] Cardiology [facility] Card[facility] Card[facility] Cardiology: O rders: C arotid Duplex Bilateral (CPT-03017) [facility] Cardiology: H er updated medication list for [...] (Dulaglutide) ..... Inject 1 once a week [facility] Cardiology: H er updated medication list for this problem includes: Losartan 50 Mg Tablet (Losartan) ..... Take 1/2 tablet by mouth twice a day Furosemide 20 Mg Tablet (Furosemide) ..... Take 1 tablet by mouth every day Aspirin 81 Mg Tablet,delayed Release (dr/ec) (Aspirin) ..... 1 tablet by mouth once a day [facility] Cardiology Erwin Okeefety Cardiology:compression advised T kashmirs David Cardiology Erwin Okeefety Cardiology [facility] Cardiology:Denies angina, SOB. C ontinue medical therapy Erwin Hernandez Cardiology [facility] Cardiology [facility]: B P today: 143/74 P rior BP: 118/64 (10/02/2023) Prior 10 Yr Risk Heart Disease: Not enough information (11/29/2021) Labs Reviewed: C reat: 0.87 (04/08/2021) Chol: 168 (04/08/2021) HDL: 54 (04/08/2021) LDL: 83 (04/08/2021) T (04/08/2021) [facility] Cardiology: B P today: 118/64 P rior BP: 134/66 (09/05/2023) Prior 10 Yr Risk Heart Disease: Not enough information (11/29/2021) Labs Reviewed: C reat: 0.87 (04/08/2021) Chol: 168 (04/08/2021) HDL: 54 (04/08/2021) LDL: 83 (04/08/2021) T (04/08/2021) Silverio claudette Cardiology [facility] Cardiology: H er updated medication list for this problem includes: Ezetimibe 10 Mg Tablet (Ezetimibe) ..... Take 1 tablet by mouth every day Atorvastatin 80 Mg Tablet (Atorvastatin) ..... Take 1 tablet by mouth every evening [facility]IBEL 09/09 23 which revealed normal LVF, The Aortic Valve Mean Gradient is 14.7 m Hg . The ESHA is 1.6 cm2 by planimetry and 1.2 cm2 by calculation. The dimensionless index is 0.5. Silverio Obando Cardiology [facility] Cardiology [facility] Silverio Ahmedzai Cardiology Silverio Ahmedzai Cardiology [...] up Kvng rios MD Cardiology follow up Toniya Willy rios MD Cardiology follow up Toniya Willy rios MD Cardiology Follow up Toniya Willy rios MD Cardiology Follow up Toniya Willy rios MD Cardiology Follow up Toniya Willy rios MD Cardiology Follow up Toniya Willy rios MD Cardiology Follow up Toniya Willy rios MD Cardiology Vince C Quincy Cardiology:The patie nt is using CPAP on a regular basis. The patient has been benefiting from therapy and should continue use. Vince Plascencia David Cardiology Vince Plascencia David Cardiology Toncristin [...] Cardiology Toncristin Valverde MD Cardiology follow up Toniya Willy rios [...] Valverde MD Cardiology Tonithomas Valverde MD Cardiology Kvng Valverde MD Cardiology Kvng Valverde MD Cardiology Follow up - [...] R lower extremity 10/08 showed no abnormality. Lisabethany Manuel NP Cardiology follow up Kvng rios [...] MD Cardiology Kvng Valverde MD Cardiology Kvng Vavlerde MD Cardiology Kvng Valverde MD Cardiology Kvng [...] Kvng Valverde MD Cardiology Kvng Valverde MD Follow up : T he [...] ..... Once daily Orders: C omplete Echo (CPT-[id number]) Mook Green MD follow up: H er updated medication list for this problem includes: Aspirin 81 Mg Tabs (Aspirin) ..... One tab. daily Orders: C omplete Echo (CPT-[id number]) X -Ray, Chest, PA & Lateral (CPT-82524) Mook Green MD follow up Mook Green [...] hypokinesis with an EF of 50%. 2+ [facility] (08/01/2006) Kvng Valverde MD Follow Up: [...] of myocardial ischemia or scar. [facility] (03/15/2011) Cardiac Cath: Normal coronary arteries. Mild antral hypokinesis with an EF of 50%. 2+ [facility]. [facility] (08/01/2006) C arotid Doppler/Duplex: Mild plaque with [...] with an EF of 50%. 2+ [facility]. [facility] (08/01/2006) C arotid Doppler/Duplex: Mild plaque with [...] with an EF of 50%. 2+ MR. [facility] (08/01/2006) C arotid Doppler/Duplex: Mild plaque [...] criteria at 79% of target heart rate. [facility] (12/02/2008) C ardiac Cath: Normal coronary arteries. Mild antral hypokinesis with an EF of 50%. 2+ MR. [facility] (08/01/2006) C arotid Doppler/Duplex: Mild plaque is seen in the RCCA. Less than 50% stenosis of the ICA bilaterally. The flow in the vertebra arteries is antegrade bilaterally. [facility] (06/26/2006) C HOL: 192 (12/02/2008) LDL: 102 (12/02/2008) HDL: 54 (12/02/2008) T (12/02/2008) H gb: 11.5 (2009) HCT: 36.5 (2009) WBC: 11.5 (2009) BUN: 11 (2009) Creat: 0.9 (2009) Glucose: 113 [...] criteria at 79% of target heart rate. [facility] (12/02/2008) C ardiac Cath: Normal coronary arteries. Mild antral hypokinesis with an EF of 50%. 2+ MR. [facility] (08/01/2006) C arotid Doppler/Duplex: Mild plaque [...] criteria at 79% of target heart rate. [facility] (12/02/2008) C ardiac Cath: Normal coronary arteries. Mild antral hypokinesis with an EF of 50%. 2+ MR. [facility] (08/01/2006) C arotid Doppler/Duplex: Mild plaque is seen in the RCCA. Less than 50% stenosis of the ICA bilaterally. The flow in the vertebra arteries is antegrade bilaterally. [facility] (06/26/2006) C HOL: 192 (12/02/2008) LDL: 102 [...] physiologic MR & TR. [facility] (02/10/2009) Orders: E KG (CPT-[id number]) Kvng Valverde MD chest pain: H er [...] criteria at 79% of target heart rate. [facility] (12/02/2008) C ardiac Cath: Normal coronary arteries. Mild antral hypokinesis with an EF of 50%. 2+ MR. [facility] (08/01/2006) C arotid Doppler/Duplex: Mild plaque [...] criteria at 79% of target heart rate. [facility] (12/02/2008) C ardiac Cath: Normal coronary arteries. Mild antral hypokinesis with an EF of 50%. 2+ MR. [facility] (08/01/2006) C arotid Doppler/Duplex: Mild plaque is seen in the RCCA. Less than 50% stenosis of the ICA bilaterally. The flow in the vertebra arteries is antegrade bilaterally. [facility] (06/26/2006) E chocardiogram: TDS. Normal LV systolic function EF 65%. LVH. Dilated LV. Moderate LAE. Trace MR. Trace TR with PA pressure of 21mmHg. [facility] (06/26/2006) Kvng Valverde MD : H er updated medication list for this problem includes: Coreg 3.125 Mg Tabs (Carvedilol) ..... Bid BP today: 127/78 Prior BP: / () N uclear Stress Findings: Test is considered to be negative by ECG criteria at 79% of target heart rate. [facility] (12/02/2008) C ardiac Cath: Normal coronary arteries. Mild antral hypokinesis with an EF of 50%. 2+ MR. [facility] (08/01/2006) C arotid Doppler/Duplex: Mild plaque is seen in the RCCA. Less than 50% stenosis of the ICA bilaterally. The flow in the vertebra arteries is antegrade bilaterally. [facility] (06/26/2006) E chocardiogram: TDS. Normal LV systolic function EF 65%. LVH. Dilated LV. Moderate LAE. Trace MR. Trace TR with PA pressure of 21mmHg. [facility] (06/26/2006) Kvng Valverde MD : H er updated medication list for this problem includes: Coreg 3.125 Mg Tabs (Carvedilol) ..... Bid BP today: 127/78 Prior BP: / () N uclear Stress Findings: Test is considered to be negative by ECG criteria at 79% of target heart rate. [facility] (12/02/2008) C ardiac Cath: Normal coronary arteries. Mild antral hypokinesis with an EF of 50%. 2+ MR. [facility] (08/01/2006) C arotid Doppler/Duplex: Mild plaque is seen in the RCCA. Less than 50% stenosis of the ICA bilaterally. The flow in the vertebra arteries is antegrade bilaterally. [facility] (06/26/2006) Orders: E KG (CPT-00604) Kvng Valverde MD Date Name HEMOGLOBIN A1c TSH, free T4, total T3 PROBNP, N TERMINAL LIPID PANEL COMPREHENSIVE METABO LIC PANEL, W/EGFR IRON AND TOTAL IRON BINDING CAPACITY FERRITIN CBC (INCLUDES DIFF/P LT) Monitor - Telemetry (Mobile Cardiac) Complete Echo Carotid Duplex Bilat eral Carotid Duplex Bilat eral MARIBEL - [facility] Venous Doppler Unila teral RLE Venous Doppler Unila teral LLE Venous Doppler Unila teral RLE Venous Doppler Unila teral LLE Arterial Duplex to r /o pseudoanuerysm VenaSeal Venous Doppler Bilat eral LE - Reflux RPM Enroll: BP RPM (remote patient monitoring) Complete Echo DLCO - 79474 FRC - 25438 FVC - 78638 Carotid Duplex Bilat eral CXR- PA/Lat Carotid [...] completed FVC / MVV with bronchodilator - 65831 Kvng Valverde MD completed BLOOD COUNT HEMOGLOBIN Kvng Valverde MD completed FRC - 81494 Kvng Valverde MD complete d SpO2 w/o 6min walk/titration Kvng Valverde MD completed SVC - 43525 Kvng Valverde MD complete d DLCO - 57661 Kvng Valverde MD complet ed EKG Kvng Valverde MD completed EKG Kvng Valverde MD completed EKG Kvng Valverde MD completed EKG Kvng Valverde MD completed EKG Kvng Valverde MD completed SNOMED-CT: [id number] Physical Exam, Performed: Pulse Exam of Foot Kvng Valverde MD completed SNOMED-CT: [id number] Current Medications Documented Kvng Valverde MD completed SNOMED-CT: [id number] 515471 Current Medications Documented Kvng Valverde MD completed SNOMED-CT: 317058948 [id number] Current Medications Documented Kvng Valverde MD completed SNOMED-CT: 37980902 Physical Exam, Performed: Pulse Exam of Foot Kvng Valverde MD completed SNOMED-CT: 40520033 Physical Exam, Performed: Pulse Exam of Foot Kvng Valverde MD completed EKG Kvng Valverde MD completed SNOMED-CT: [id number] Current Medications Documented Kvng Valverde MD completed SNOMED-CT: [id number] Physical Exam, Performed: Pulse Exam of Foot Kvng Valverde MD completed SNOMED-CT: [id number] Current Medications Documented Kvng Valverde MD completed SNOMED-CT: [id number] Physical Exam, Performed: Pulse Exam of Foot Kvng Valverde MD completed SNOMED-CT: [id number] Current Medications Documented Kvng Valverde MD completed SNOMED-CT: [id number] Physical Exam, Performed: Pulse Exam of Foot Kvng Valverde MD completed EKG Kvng Valverde MD completed SNOMED-CT: 131651209 160371 Current Medications Documented Kvng Valverde MD completed EKG Kvng Valverde MD completed EKG Mook Green MD complete d EKG Kvng Valverde MD completed EKG Kvng Valverde MD completed
== END 2024-12-13 08:15 | disposition home or self-care (01) ==
PROVIDERS: PCP Internal Medicine; Visit Provider Internal Medicine Gastroenterology
DX: R11.2 Nausea with vomiting, unspecified (principal)
CPT/HCPCS: 78264; A9541

== ENCOUNTER 2024-12-16 08:48 | Outpatient (CLI) | payer MEDICARE, OTHER, SELFPAY ==
--- NOTE | ~2024-12-16 | US_ITS ---
COMPLETE ABDOMINAL ULTRASOUND Ordering provider: Gregg Estrada MD History: . R11.2 - Nausea with vomiting, unspecified . Comparison: None. FINDINGS: LIVER: Normal size and echotexture. No focal hepatic lesions or perihepatic fluid collections are fitz ntified. The liver measures 18.5 cm. Normal flow of the portal vein. GALLBLADDER: Status post cholecystectomy. BILIARY DUCTS: No evidence for intra or extrahepatic biliar y dilation. Common bile duct measures 6.4 mm in diameter which is within normal limits. PANCREAS: Not well visualized. SPLEEN: Normal size, echotexture and contour and measures 11.8 cm in length. Multiple echogenic foci are seen. KIDNEYS: Right measures 8.6x 4.8x 5.1 cm in length and the left 10.1x 5.5x 4.8 cm in length. There is no evidence for hydronephrosis, solid renal mass, renal calculi or perinephric fluid collections. No renal cysts. UPPER ABDOMINAL AORTA: Normal in caliber. IVC: Patent. FREE FLUID: None. IMPRESSION: Unremarkable complete ultrasound of the abdomen. Reviewed, dictated and finalized at location A.
--- OUTSIDE RECORDS SUMMARY | 2024-12-16 09:14 | XMS_ITS | Clinical Summary ---
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 This disclosure is being madepursuant to the Care Everywhere program and may not contain all information available regarding this patient. 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 Gender Identity Not on file Sexual Orientation Not on file Last Filed Vital Signs Vital Sign Reading Time Taken Comments Blood Pressure - - Pulse - - Temperature - - Respiratory Rate - - Oxygen Saturation - - Inhaled Oxygen Concentration - - Weight 103.4 kg (228 lb) 08/26/2019 8:04 AM TANK INSPECTOR Height 157.5 cm (5' 2 ) 08/26/2019 8:04 AM TANK INSPECTOR Body Mass Index 41.7 08/26/2019 8:04 AM TANK INSPECTOR Plan of Treatment Health Maintenance Due Date [...] patient's age to complete this topic Insurance [facility] [place] [address] MEDICARE [facility] SELF PAY NO INSURANCE Member Subscriber Plan / Payer (Ef fective for All Dates) Name:Loan Francisco Member ID:Not on file Relation to Subscriber:Not on file Name:LOAN FRANCISCO Subscriber ID:Not on file (Home) Address: [address] [place] [id number] Payer ID:Not on file Group ID:Not on file Type:Self Pay Address: [place], [place] MEDICARE Care Teams Steam Shovel Engineer Relationship Specialty Start Date End Date Maurice Daniels MD [address] [place] [address] PCP - General Internal Medicine 08/01/19
--- OUTSIDE RECORDS SUMMARY | 2024-12-16 09:14 | XMS_ITS | CONTINUITY OF CARE DOCUMENT ---
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 GERD active Kvng Valverde MD CAD s/p CABG single vsl SVG-RCA active Kvng Valverde MD Syncope active Silverio Obando Chest discomfort--normal stress nuc 10/2021 active Kvng Valverde MD Cough active Kvng Valverde MD Elevated blood pressure active Silverio Clark i Venous insufficiency active Kvng Valverde MD Leg cramps, bilateral active Raven 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 Hypertension active Kvng Valverde MD Cardiology examination active Silverio Obando Memory impairment active Silverio Obando ENCOUNTERS Date Type Provider Location Encounter Diag nosis - In-person encounter Office Visit Kvng Valverde MD [place] [facility] Carotid artery disease, 50-69% LICA,<50% SHA, 09/2024 - In-person encounter Office Visit Kvng Valverde MD [place] [facility] Fatigue--echo ef nl, ardiology examinationMemory impairment - In-person encounter Office Visit Kvng Valverde MD [place] [facility] - In-person encounter Office Visit Kvng Valverde MD [place] [facility] - In-person encounter Office Visit Kvng Valverde MD [place] [facility] - In-person encounter Office Visit Kvng Valverde MD [place] [facility] AORTIC STENOSIS, s/p 21mm C.E AVR 02/06, single vsl CABG w/SVG to RCA 01/18/19 CNECarotid artery disease, 50-69% LICA,<50% SHA, 09/2024Fatigue--echo ef nl, 05/2024Hypertension - In-person encounter Office Visit Kvng Valverde MD [place] [facility] - In-person encounter Office Visit Kvng Valverde MD [place] [facility] - In-person encounter Office Visit Kvng Valverde MD [place] [facility] Fatigue--echo ef nl, 05/2024 - In-person encounter Office Visit Toney Pulido MD [place] [facility] Leg cramps, bilateral - In-person encounter Office Visit Kvng Valverde MD [place] [facility] Venous insufficiency - In-person encounter Office Visit Kvng Valverde MD [place] [facility] Elevated blood pressure - In-person encounter Office Visit Kvng Valverde MD [place] [facility] - In-person encounter Office Visit Kvng Valverde MD [place] [facility] Cough - In-person encounter Office Visit Kvng Valverde MD [facility] - In-person encounter Office Visit Kvng Valverde MD [place] [facility] Carotid artery disease, 50-69% LICA,<50% SHA, 09/2024Fatigue--echo ef nl, hest discomfort--normal stress nuc 10/2021 - In-person encounter Office Visit Kvng Valverde MD [place] [facility] Fatigue--echo ef nl, 05/2024Syncope - In-person encounter Office Visit Kvng Valverde MD [place] [facility] AORTIC STENOSIS, s/p 21mm C.E AVR 02/06, single vsl CABG w/SVG to RCA 01/18/19 CNECAD s/p CABG single vsl SVG-RCA - In-person encounter Office Visit Kvng Valverde MD [place] [facility] Carotid artery disease, 50-69% LICA,<50% SHA, 09/2024 - In-person encounter Office Visit Kvng Valverde MD [place] [facility] - In-person encounter Office Visit Kvng Valverde MD [place] [facility] - In-person encounter Office Visit Kvng Valverde MD [place] [facility] - In-person encounter Office Visit Kvng Valverde MD [place] [facility] GERD - In-person encounter Office Visit Kvng Valverde MD [place] [facility] - In-person encounter Office Visit Kvng Valverde MD [place] [facility] AORTIC STENOSIS, s/p 21mm C.E AVR 02/06, single vsl CABG w/SVG to RCA 01/18/19 CNEr/o CAD;neg cath 06, neg nuc 13Chest pain - In-person encounter Office Visit Kvng Valverde MD [place] [facility] - In-person encounter Office Visit Kvng Valverde MD [place] [facility] AORTIC STENOSIS, s/p 21mm C.E AVR 02/06, single vsl CABG w/SVG to RCA 01/18/19 CNE - In-person encounter Office Visit Kvng Valverde MD [place] [facility] - In-person encounter Office Visit Kvng Valverde MD [place] [facility] Back pain, lower - In-person encounter Office Visit Kvng Valverde MD [place] [facility] - In-person encounter Office Visit Kvng Valverde MD [place] [facility] Edema - In-person encounter Office Visit Kvng Valverde MD [facility] - In-person encounter Office Visit Kvng Valverde MD [place] [facility] - In-person encounter Office Visit Kvng Valverde MD [place] [facility] - In-person encounter Office Visit Kvng Valverde MD [place] [facility] Microvascular angina;on ecpFamily History of Hypertension: - In-person encounter Office Visit Kvng Valverde MD [place] [facility] AORTIC STENOSIS, s/p 21mm C.E AVR 02/06, single vsl CABG w/SVG to RCA 01/18/19 CNE - In-person encounter Office Visit Kvng Valverde MD [place] [facility] - In-person encounter Office Visit Kvng Valverde MD [place] [facility] - In-person encounter Office Visit Kvng Valverde MD [place] [facility] - In-person encounter Office Visit Kvng Valverde MD [facility] - In-person encounter Office Visit Kvng Valverde MD [place] [facility] AORTIC STENOSIS, s/p 21mm C.E AVR 02/06, single vsl CABG w/SVG to RCA 01/18/19 CNE - In-person encounter Office Visit Kvng Valverde MD [place] [facility] Obesity; - In-person encounter Office Visit Kvng Valverde MD [place] [facility] - In-person encounter Office Visit Kvng Valverde MD [place] [facility] Obesity; - In-person encounter Office Visit Mook Green MD [place] [facility] HTN-06/02 ECHO MILD EF 60ASTHMA;per pulmna mdDYSLIPIDEMIA;on rxCHEST PAIN-07/26 CATH NLCHEST PAIN-11/27 NUC NEGCAD-06/02 CAROTID NEGAORTIC STENOSIS, s/p 21mm C.E AVR 02/06, single vsl CABG w/SVG to RCA 01/18/19 CNEDIABETES MELLITUS, TYPE II, UNCONTROLLEDCarotid artery disease, 50-69% LICA,<50% SHA, 09/2024Obesity;Sleep apnea;on cpap - In-person encounter Office Visit Kvng Valverde MD [place] [facility] - In-person encounter Office Visit Kvng Valverde MD [place] [facility] AORTIC STENOSIS, s/p 21mm C.E AVR 02/06, single vsl CABG w/SVG to RCA 01/18/19 CNE - In-person encounter Office Visit Kvng Valverde MD [facility] - In-person encounter Office Visit Kvng Valverde MD [place] [facility] - In-person encounter Office Visit Kvng Valverde MD [place] [facility] - In-person encounter Office Visit Kvng Valverde MD [facility] VITAL SIGNS Date Observation Value Provider Body [...] blood pressure, diastolic 81 mm[Hg] [address] [facility] blood pressure, systolic 135 mm[Hg] Esther hernandez [facility] blood pressure, cuff size regular [address] [facility] oxygen saturation, oximetry 99 % Tarah [facility] pulse rate 78 /min Tarah [facility] Body Mass Index (Ratio) 41.15 kg/m2 Champyl garret [facility] weight in kilograms E&M 102.06 kg Champyl garret [facility] weight E&M 225 [lb_av] Tarah [facility] height E&M 62 [in_i] Tarah [facility] height in centimeters E&M 157.[address] [facility] Body Mass Index (Ratio) 42.79 kg/m2 [...] Ja rret blood pressure, systolic 143 mm[Hg] [facility] pulse rate 64 /min [place] oxygen saturation, oximetry 95 % [place] respiratory rate E&M 16 /min [place] weight E&M 227 [lb_av] [place] height E&M 62 [in_i] [facility] y Body Mass Index (Ratio) 40.60 kg/m2 Antwan Valverde MD pulse rate 78 /min [facility] blood pressure, cuff size regular [facility] blood pressure, diastolic 64 mm[Hg] [facility] blood pressure, systolic 118 mm[Hg] [facility] oxygen saturation, oximetry 97 % [facility] respiratory rate E&M 16 /min [facility] weight E&M 222 [lb_av] [facility] height E&M 62 [in_i] [facility] Body Mass Index (Ratio) 39.50 kg/m2 Antwan Valverde MD blood pressure, cuff size regular [facility] blood pressure, diastolic 66 mm[Hg] [facility] blood pressure, systolic 134 mm[Hg] [facility] pulse rate 72 /min [facility] oxygen saturation, oximetry 96 % [facility] respiratory rate E&M 12 /min [facility] weight E&M 216 [lb_av] [place] height E&M 62 [in_i] [facility] y Body Mass Index (Ratio) [...] An thomas Zarate height E&M 62 [in_i] aV Zarate Body Mass Index (Ratio) 39.36 kg/m2 [...] mae Reed blood pressure, systolic 152 mm[Hg] [facility] marleny Reed oxygen saturation, oximetry 98 % [...] Katerin Najera son height E&M 62 [in_i] Kaetrin Valverdeandrea gallegos Body Mass Index (Ratio) 39.87 kg/m2 Antwan Valverde MD blood pressure, diastolic 63 mm[Hg] Mi ofelia Feldman blood pressure, systolic 132 mm[Hg] [facility] lissette Feldman pulse rate 83 /min Liliana caldwell oxygen saturation, oximetry 97 % Liliana Feldman weight E&M 218 [lb_av] Liliana Catalan john respiratory rate E&M 16 /min Tiffanie evans [place] blood pressure, cuff size large Keyla gilbert [place] height E&M 62 [in_i] Liliana Catalan john [...] Valverde MD respiratory rate E&M 16 /min [facility] blood pressure, diastolic 74 mm[Hg] [facility] 124 mm[Hg] Ton [facility] oxygen saturation, oximetry 98 % [facility] pulse rate 79 /min [facility] weight E&M 233 [lb_av] [facility] height E&M 62 [in_i] [facility] Body Mass Index (Ratio) 40.97 kg/m2 Antwan [...] mm[Hg] Roque Awanam pulse rate 84 /min [place] oxygen saturation, oximetry 98 % Delfino Dixon respiratory rate E&M 16 /min [place] weight E&M 224 [lb_av] Delfino Dixon height E&M 62 [in_i] Delfino Dixon Body Mass Index (Ratio) 43.53 kg/m2 Antwan Valverde MD blood pressure, diastolic 80 mm[Hg] Ulisses jones ORonaldo blood pressure, systolic 142 mm[Hg] Carrie smith ORonaldo oxygen saturation, oximetry 97 % Jeanine ORonaldo respiratory rate E&M 16 /min Jeainne ORonaldo pulse rate 81 /min Jeanine ORonaldo weight E&M 238 [lb_av] Jeanine ORonaldo height E&M 62 [in_i] [facility] ORonaldo Body Mass Index (Ratio) 43.53 kg/m2 Antwan Valverde MD blood pressure, cuff size large Ke rri [facility] blood pressure, diastolic 70 mm[Hg] Ke rri Junior blood pressure, systolic 132 mm[Hg] [place] oxygen saturation, oximetry 98 % Shanice Pacheco respiratory rate E&M 18 /min Shanice live pulse rate 96 /min Shanice Gonzales [facility] weight E&M 238 [lb_av] Shanice Gonzales er [...] blood pressure, diastolic 80 mm[Hg] Da hussein Udell blood pressure, systolic 128 mm[Hg] Dac ia Shen oxygen saturation, oximetry 94 % Amarilis Udell respiratory rate E&M 16 /min Amarilis V oss pulse rate 75 /min Amarilis Udell weight E&M 244 [lb_av] Amarilis Shen height E&M 62 [in_i] Amarilis Shen Body Mass Index (Ratio) 45.17 kg/m2 Antwan Valverde MD blood pressure, diastolic 76 mm[Hg] Da hussein Shen blood pressure, systolic 138 mm[Hg] Dac ia Shen oxygen saturation, oximetry 96 % Amarilis Udell respiratory rate E&M 20 /min Amarilis V oss pulse rate 71 /min Amarilis Shen weight E&M 247 [lb_av] Amarilis Shen height E&M 62 [in_i] Amarilis Udell Body Mass Index (Ratio) 43.93 kg/m2 Antwan Valverde MD pulse rate #[address] [facility] blood pressure, koehler tolic, second observation 79 mm[Hg] [facility] blood pressure, syst olic, second observation 131 mm[Hg] [facility], [facility] 98 % [facility] 56 /min [facility], diastolic 79 mm[Hg] [...] [in_i] Brandan jc pulse rate #[address] [facility] blood pressure, koehler tolic, second observation 78 mm[Hg] [facility] blood [facility], syst olic, second observation 119 mm[Hg] [facility], [facility]xim[facility] 98 % Rani [facility] pulse rate 59 /min Rani blood pressure, diastolic 78 mm[Hg] Vi [facility] Ted blood pressure, systolic 119 mm[Hg] Merritt cari Tebid pulse rate #[address] [facility] blood pressure, koehler tolic, second observation 76 mm[Hg] Rani Tebid blood pressure, syst olic, second observation 132 mm[Hg] Rani Tebid oxygen saturation, oximetry 98 % Rani Tebi pulse rate 65 /min Rani Tebid blood pressure, diastolic 76 mm[Hg] Vi [facility] Tebid blood pressure, systolic 132 mm[Hg] [...] % Rani d pulse rate 61 /min [place] d blood pressure, diastolic 78 mm[Hg] Vi ctoria Tebid blood pressure, systolic 133 mm[Hg] Merritt cari Tebid pulse rate #2 65 [place] d blood pressure, koehler tolic, second observation 73 mm[Hg] Rani d blood pressure, syst olic, second observation 126 mm[Hg] Rani d oxygen saturation, oximetry 98 % [place] pulse rate 65 /min [place] blood pressure, diastolic 73 mm[Hg] Vi ctoria Ted blood pressure, systolic 126 mm[Hg] Merritt cari Ted pulse rate #2 63 [place] blood pressure, koehler tolic, second observation 76 mm[Hg] [place] blood pressure, syst olic, second observation 135 mm[Hg] Rani oxygen saturation, oximetry 98 % Rani pulse rate 63 /min [place] blood pressure, diastolic 76 mm[Hg] Vi ctoria Ted blood pressure, systolic 135 mm[Hg] Merritt cari Tebid pulse rate #2 71 [place] blood pressure, koehler tolic, second observation 76 mm[Hg] [place] d blood pressure, syst olic, second observation 125 mm[Hg] Rani d oxygen saturation, oximetry 98 % Rani pulse rate 71 /min [place] blood pressure, diastolic 76 mm[Hg] Vi ctoria Tebid blood pressure, systolic 125 mm[Hg] Merritt andersonia Tebid pulse rate #2 68 [place] blood pressure, koehler tolic, second observation 73 mm[Hg] Rani blood pressure, syst olic, second observation 125 mm[Hg] Rani oxygen saturation, oximetry 98 % Rani pulse rate 68 /min [place] blood pressure, diastolic 73 mm[Hg] Vi txoria blood pressure, systolic 125 mm[Hg] Merritt cari d pulse rate #2 69 [place] blood pressure, koehler tolic, second observation 78 mm[Hg] Rani blood pressure, syst olic, second observation 129 mm[Hg] Rani oxygen saturation, oximetry 98 % Rani pulse rate 69 /min [place] blood pressure, diastolic 78 mm[Hg] Vi [facility] d blood pressure, systolic 129 mm[Hg] Merritt cari d pulse rate #2 72 [place] blood pressure, koehler tolic, second observation 80 mm[Hg] Rani blood pressure, syst olic, second observation 141 mm[Hg] Rani oxygen saturation, oximetry 98 % Rani pulse rate 72 /min [place] blood pressure, diastolic 80 mm[Hg] Vi [facility] d blood pressure, systolic 141 mm[Hg] Merritt cari d pulse rate #2 58 [place] blood pressure, koehler tolic, second observation 70 mm[Hg] Rani blood pressure, syst olic, second observation 143 mm[Hg] [place] oxygen saturation, oximetry 98 % [place] pulse rate 58 /min [facility] blood pressure, diastolic 70 mm[Hg] Vi txoria d blood pressure, systolic 143 mm[Hg] Merritt andersonia Tebid pulse rate #2 73 [facility] blood pressure, koehler tolic, second observation 74 mm[Hg] [facility] blood pressure, syst olic, second observation 119 mm[Hg] [facility] oxygen saturation, oximetry 98 % [facility] pulse rate 73 /min [facility] blood pressure, diastolic 74 mm[Hg] Vi txoria Ted blood pressure, systolic 119 mm[Hg] [facility]2 69 [facility] blood pressure, koehler tolic, second observation 83 mm[Hg] [facility] blood pressure, syst olic, second observation 139 mm[Hg] [facility] oxygen saturation, oximetry 98 % [facility] pulse rate 69 /min [facility] blood pressure, diastolic 83 mm[Hg] [facility], [facility] 139 mm[Hg] [facility] pulse [facility] #2 64 [place] blood pressure, koehler tolic, second observation 72 mm[Hg] [facility] blood pressure, syst olic, second observation 131 mm[Hg] [facility] oxygen saturation, oximetry 98 % [facility] pulse rate 64 /min [facility] blood pressure, diastolic 72 mm[Hg] Vi [facility] Ted blood pressure, systolic 131 mm[Hg] [facility] pulse rate #2 66 [facility] blood pressure, koehler tolic, second observation 76 mm[Hg] [facility] blood pressure, syst olic, second observation 138 mm[Hg] [facility] oxygen saturation, oximetry 98 % [facility] pulse rate 66 /min [facility] blood pressure, diastolic 76 mm[Hg] Vi ctoria Ted blood pressure, systolic 138 mm[Hg] Merritt cari d pulse rate #2 68 [place] blood pressure, koehler tolic, second observation 79 mm[Hg] Rani blood pressure, syst olic, second observation 125 mm[Hg] [facility] oxygen saturation, oximetry 98 % Rani pulse rate 68 /min [place] blood pressure, diastolic 79 mm[Hg] Vi ctoria Ted blood pressure, systolic 125 mm[Hg] Merritt cari d pulse rate #2 65 [place] blood pressure, koehler tolic, second observation 71 mm[Hg] [facility] blood pressure, syst olic, second observation 125 mm[Hg] [facility] oxygen saturation, oximetry 98 % [place] pulse rate 65 /min Rani blood pressure, diastolic 71 mm[Hg] Vi [facility] d blood pressure, systolic 125 mm[Hg] Merritt cari d pulse rate #2 67 [place] blood pressure, koehler tolic, second observation 73 mm[Hg] [facility] blood pressure, syst olic, second observation 130 mm[Hg] Rani oxygen saturation, oximetry 98 % Rani pulse rate 67 /min Rani blood pressure, diastolic 73 mm[Hg] [facility], systolic 130 mm[Hg] Merritt [place] d pulse rate #2 66 [place] blood pressure, koehler tolic, second observation 71 mm[Hg] [place] blood pressure, syst olic, second observation 132 mm[Hg] [facility] oxygen saturation, oximetry 98 % [facility] pulse rate 66 /min [place] Tebid blood pressure, diastolic 71 mm[Hg] Vi ctoria Tebid blood pressure, systolic 132 mm[Hg] Merritt cari Tebid pulse rate #2 67 [place] Tebid blood pressure, koehler tolic, second observation 73 mm[Hg] Rani Tebid blood pressure, syst olic, second observation 135 mm[Hg] Rani Tebid oxygen saturation, oximetry 98 % Rani Tebid pulse rate 67 /min [place] Tebid blood pressure, diastolic 73 mm[Hg] Vi [facility] Tebid blood pressure, systolic 135 mm[Hg] Merritt cari Tebid pulse rate #2 77 [facility] blood pressure, koehler tolic, second observation 80 mm[Hg] [facility] blood pressure, syst olic, second observation 130 mm[Hg] [facility] oxygen saturation, oximetry 98 % [facility] pulse rate 77 /min [place] Tebid blood pressure, diastolic 80 mm[Hg] Vi [facility] Tebid blood pressure, systolic 130 mm[Hg] Merritt cari Tebid pulse rate #2 62 [facility] blood pressure, koehler tolic, second observation 78 mm[Hg] [place] Tebid blood pressure, syst olic, second observation 136 mm[Hg] [place] Tebid oxygen saturation, oximetry 98 % [facility] pulse rate 62 /min [place] Tebid blood pressure, diastolic 78 mm[Hg] Vi [facility] Tebid blood pressure, systolic 136 mm[Hg] Merritt cari Tebid pulse rate #2 91 [facility] blood pressure, koehler tolic, second observation 81 mm[Hg] [facility] blood pressure, syst olic, second observation 117 mm[Hg] [facility] oxygen saturation, oximetry 98 % [facility] pulse rate 91 /min [facility] blood pressure, diastolic 81 mm[Hg] Vi ctoria Tebid blood pressure, systolic 117 mm[Hg] Merritt cari Tebid pulse rate #2 75 [facility], koehler tolic, second observation 71 mm[Hg] [facility] blood pressure, syst olic, second observation 134 mm[Hg] [facility] oxygen saturation, oximetry 98 % [facility] pulse rate 75 /min [facility] blood pressure, diastolic 71 mm[Hg] Vi [facility] Tebid blood pressure, systolic 134 mm[Hg] Merritt cari Tebid pulse rate #2 63 [facility] blood pressure, koehler tolic, second observation 75 mm[Hg] [facility] blood pressure, syst olic, second observation 136 mm[Hg] [facility] oxygen saturation, oximetry 98 % [facility] pulse rate 63 /min [place] d blood pressure, diastolic 75 mm[Hg] Vi txoria Tebid blood pressure, systolic 136 mm[Hg] Merritt cari Tebid pulse rate #2 74 [place] Tebid blood pressure, koehler tolic, second observation 78 mm[Hg] [place] Tebid blood pressure, syst olic, second observation 126 mm[Hg] Rani Tebid oxygen saturation, oximetry 98 % [facility] pulse rate 74 /min [place] Tebid blood pressure, diastolic 78 mm[Hg] Vi ctoria Tebid blood pressure, systolic 126 mm[Hg] Merritt andersonia Tebid pulse rate #2 71 [place] Tebid blood pressure, koehler tolic, second observation 77 mm[Hg] Rani Tebid blood pressure, syst olic, second observation 135 mm[Hg] Rani bid oxygen saturation, oximetry 98 % Rani bid pulse rate 71 /min [place] d blood pressure, diastolic 77 mm[Hg] Vi ctoria Tebid blood pressure, systolic 135 mm[Hg] Merritt cari Tebid pulse rate #2 69 [place] d blood pressure, koehler tolic, second observation 72 mm[Hg] [facility] blood [facility], syst olic, second observation 140 mm[Hg] Rani d oxygen saturation, oximetry 98 % Rani pulse rate 69 /min [place] d blood pressure, diastolic 72 mm[Hg] Vi ctoria Tebid blood pressure, systolic 140 mm[Hg] Merritt cari Tebid pulse rate #2 68 [place] d blood pressure, koehler tolic, second observation 74 mm[Hg] Rani d blood pressure, syst olic, second observation 135 mm[Hg] Rani d oxygen saturation, oximetry 98 % Rani d pulse rate 68 /min [place] bid blood pressure, diastolic 74 mm[Hg] Vi ctoria Tebid blood pressure, systolic 135 mm[Hg] Merritt cari Tebid pulse rate #2 66 [facility] blood [facility], koehler tolic, second observation 79 mm[Hg] [facility] blood pressure, syst olic, second observation 127 mm[Hg] Rani Tebid oxygen saturation, oximetry 98 % Rani d pulse rate 66 /min [place] Tebid blood pressure, diastolic 79 mm[Hg] Vi ctoria Tebid blood pressure, systolic 127 mm[Hg] Merritt cari Tebid pulse rate #2 63 [facility] blood pressure, koehler tolic, second observation 84 mm[Hg] Rani d blood pressure, syst olic, second observation 133 mm[Hg] Rani d oxygen saturation, oximetry 98 % [place] pulse rate 63 /min [facility] blood pressure, diastolic 84 mm[Hg] Vi [facility] Ted blood pressure, systolic 133 mm[Hg] Merritt cari Ted pulse rate #2 62 [facility] blood pressure, koehler tolic, second observation 68 mm[Hg] [facility] blood pressure, syst olic, second observation 129 mm[Hg] [facility] oxygen saturation, oximetry 98 % [facility] pulse rate 62 /min [facility] blood pressure, diastolic 68 mm[Hg] Vi [facility] Ted blood pressure, systolic 129 mm[Hg] Merritt cari Ted pulse rate #2 65 [place] blood pressure, koehler tolic, second observation 81 mm[Hg] [facility] syst olic, second observation 131 mm[Hg] [facility] oxygen saturation, oximetry 98 % [facility] pulse rate 65 /min [facility] blood pressure, diastolic 81 mm[Hg] Maryanne [facility] Ted blood pressure, systolic 131 mm[Hg] [...] tyler Dixon oxygen saturation, oximetry 98 % [place] respiratory rate E&M 16 /min Delfino Dixon pulse rate 77 /min Delfino Dixon weight E&M 248 [lb_av] [place] height E&M 62 [in_i] [place] Body Mass Index (Ratio) 45.21 kg/m2 [...] Natalee Alonso blood pressure, diastolic 71 mm[Hg] Pr taiwo Alonso blood pressure, systolic 126 mm[Hg] [...] Alonso Body Mass Index (Ratio) 45.17 kg/m2 [facility] weight E&M 247 [lb_av] Natalee Alonso blood pressure, diastolic 72 mm[Hg] Pr taiwo Alonso blood pressure, systolic 142 mm[Hg] Cece angelo Alonso pulse rate 86 /min Natalee Alonso oxygen saturation, oximetry 97 % Natalee Alonso respiratory rate E&M 16 /min Natalee Alonso Body Mass Index (Ratio) 45.17 kg/m2 [facility] weight E&M 247 [lb_av] Natalee Alonso blood pressure, diastolic 77 mm[Hg] Me taiwo Patel blood pressure, systolic 164 mm[Hg] Cece Patel pulse rate 72 /min Natalee Patel oxygen saturation, oximetry 99 % Natalee Patel respiratory rate E&M 16 /min Natalee Patel Body Mass Index (Ratio) 45.50 kg/m2 [facility] rodrigo Patel weight E&M 248.8 [lb_av] Natalee Patel Body Mass Index (Ratio) 45.17 kg/m2 [facility] blood pressure, diastolic 65 mm[Hg] Pr taiwo Alonso blood pressure, systolic 133 mm[Hg] [...] Christian lder blood pressure, diastolic 78 mm[Hg] Pr taiwo Alonso blood pressure, systolic 145 mm[Hg] [...] Rani Tebid oxygen saturation, oximetry 97 % [facility] 75 /min [facility] blood [facility], diastolic 78 mm[Hg] Vi [facility] Tebid blood pressure, systolic 139 mm[Hg] [facility]2 72 [place] Tebi blood pressure, koehler tolic, second observation 65 mm[Hg] Rani Tebid blood pressure, syst olic, second observation 148 mm[Hg] Rani Tebid oxygen saturation, oximetry 97 % Rani Tebid pulse rate 71 /min Rani Tebid blood pressure, diastolic 60 mm[Hg] Vi [facility] Tebid blood pressure, systolic 151 mm[Hg] [...] pressure, syst olic, second observation 121 mm[Hg] [facility] oxygen saturation, oximetry 97 % [facility] pulse rate 76 /min [facility] blood pressure, diastolic 58 mm[Hg] [facility] blood pressure, systolic 121 mm[Hg] Merritt alcala [facility] pulse rate #[address] [facility] blood pressure, koehler tolic, second observation 61 mm[Hg] [facility] blood pressure, syst olic, second observation 132 mm[Hg] [facility] oxygen saturation, oximetry 97 % [facility] pulse rate 81 /min [facility] blood pressure, diastolic 66 mm[Hg] [facility], systolic 144 mm[Hg] Merritt [facility] pulse rate #[address] [facility] blood pressure, koehler tolic, second observation 64 mm[Hg] [facility] blood pressure, syst olic, second observation 129 mm[Hg] [facility] oxygen saturation, oximetry 97 % [facility] pulse rate 71 /min [facility] blood pressure, diastolic 71 mm[Hg] Vi [facility] blood pressure, systolic 136 mm[Hg] Merritt cari [facility] blood pressure, diastolic 71 mm[Hg] An eatris Tramaine blood pressure, systolic 135 mm[Hg] Ane atris Tramaine pulse rate 88 /min Yarelisatrerica [facility] oxygen saturation, oximetry 97 % Yarelisatrerica Redd respiratory rate E&M 18 /min Angelai kee Redd weight E&M 250 [lb_av] Yarelisatris Tramaine pulse rate #[address] [facility] blood pressure, koehler tolic, second observation 77 mm[Hg] [facility] blood pressure, syst olic, second observation 135 mm[Hg] Rani Tebid oxygen saturation, oximetry 98 % Rani Tebid pulse rate 73 /min Rani Tebid blood pressure, diastolic 68 mm[Hg] Vi ctoria Tebid blood pressure, systolic 148 mm[Hg] Merritt cari Tebid pulse rate #2 82 [place] Tebid blood pressure, koehler tolic, second observation 74 mm[Hg] Rani Tebid blood pressure, syst olic, second observation 126 mm[Hg] Rani Tebid oxygen saturation, oximetry 98 % Rani bid pulse rate 85 /min Rani bid blood pressure, diastolic 86 mm[Hg] Vi ctoria Tebid blood pressure, systolic 146 mm[Hg] Merritt cari Tebid pulse rate #2 76 [place] Tebid blood pressure, koehler tolic, second observation 80 mm[Hg] Rani bid blood pressure, syst olic, second observation 134 mm[Hg] Rani Tebid oxygen saturation, oximetry 98 % Rani bid pulse rate 82 /min Rani Tebid blood pressure, diastolic 88 mm[Hg] Vi ctoria Tebid blood pressure, systolic 145 mm[Hg] Merritt cari Tebid pulse rate #2 77 [place] Tebid blood pressure, koehler tolic, second observation 72 mm[Hg] Rani Tebid blood pressure, syst olic, second observation 145 mm[Hg] Rani Tebid oxygen saturation, oximetry 98 % Rani bid pulse rate 71 /min Rani Tebid blood pressure, diastolic 69 mm[Hg] Vi ctoria Tebid blood pressure, systolic 148 mm[Hg] Merritt cari Tebid pulse rate #2 66 [place] Tebid blood pressure, koehler tolic, second observation [...] Merritt cari Tebid pulse rate #2 75 [place] Tebid blood pressure, koehler tolic, second observation 65 mm[Hg] Rani Tebid blood pressure, syst olic, second observation 129 mm[Hg] Rani Tebid oxygen saturation, oximetry 98 % Rani bid pulse rate 75 /min [place] Tebid blood pressure, diastolic 82 mm[Hg] Vi ctoria Tebid blood pressure, systolic 145 mm[Hg] Merritt cari Tebid pulse rate #2 73 [place] Tebid blood pressure, koehler tolic, second observation 71 mm[Hg] Rani Tebid blood pressure, syst olic, second observation 134 mm[Hg] Rani Tebid oxygen saturation, oximetry 98 % [facility] 70 /min [facility] blood pressure, diastolic 93 mm[Hg] Vi ctoria Tebid blood pressure, systolic 151 mm[Hg] Merritt cari Tebid pulse rate #2 72 [place] Tebid blood pressure, koehler tolic, second observation 77 mm[Hg] [place] Tebid blood pressure, syst olic, second observation 119 mm[Hg] [place] Tebid oxygen saturation, oximetry 98 % [place] Tebid pulse rate 74 /min [place] Tebid blood pressure, diastolic 87 mm[Hg] Vi ctoria Tebid blood pressure, systolic 121 mm[Hg] Merritt cari Tebid pulse rate #2 72 [place] Tebid blood pressure, koehler tolic, second observation 81 mm[Hg] Rani Tebid blood pressure, syst olic, second observation 125 mm[Hg] [place] Tebid oxygen saturation, oximetry 98 % [facility] pulse [facility] 74 /min [place] Tebid blood pressure, diastolic 70 mm[Hg] Vi ctoria Tebid blood pressure, systolic 130 mm[Hg] Merritt cari Tebid pulse rate #2 82 Rani Tebid blood pressure, koehler tolic, second observation 75 mm[Hg] Rani bid blood pressure, syst olic, second observation 125 mm[Hg] [facility], oximetry 98 % Rani bid pulse rate 83 /min [place] bid blood pressure, diastolic 71 mm[Hg] Vi ctoria Tebid blood pressure, systolic 135 mm[Hg] Merritt cari Tebid pulse rate #2 77 [place] Tebid blood pressure, koehler tolic, second observation 88 mm[Hg] [facility] blood [facility], syst olic, second observation 132 mm[Hg] [facility] oxygen saturation, oximetry 98 % [facility] pulse rate 73 /min [facility] blood pressure, diastolic 76 mm[Hg] Vi ctoria Tebid blood pressure, systolic 138 mm[Hg] Merritt cari Tebid pulse rate #2 76 [place] d blood pressure, koehler tolic, second observation 79 mm[Hg] [facility] blood pressure, syst olic, second observation 126 mm[Hg] [facility] oxygen saturation, oximetry 98 % [facility] pulse rate 71 /min [place] Tebid blood pressure, diastolic 84 mm[Hg] Vi ctoria Tebid blood pressure, systolic 146 mm[Hg] Merritt andersonia Tebid pulse rate #2 68 [facility] blood pressure, koehler tolic, second observation 80 mm[Hg] [facility] blood pressure, syst olic, second observation 136 mm[Hg] [facility] oxygen saturation, oximetry 98 % [facility] 74 /min [facility], [facility] mm[Hg] Vi ctoria Tebid blood pressure, systolic 140 mm[Hg] Merritt cari Tebid pulse rate #2 79 [place] Tebid blood pressure, koehler tolic, second observation 59 mm[Hg] Rani Tebid blood pressure, syst olic, second observation 124 mm[Hg] Rani Tebid oxygen saturation, oximetry 98 % Rani Tebid pulse rate 83 /min [place] Tebid blood pressure, diastolic 65 mm[Hg] Vi ctoria Tebid blood pressure, systolic 133 mm[Hg] Merritt cari Tebid pulse rate #2 80 [place] Tebid blood pressure, koehler tolic, second observation 78 mm[Hg] [facility] blood pressure, syst olic, second observation 127 mm[Hg] [place] Tebid oxygen saturation, oximetry 98 % [place] Tebid pulse rate 76 /min [place] Tebid blood pressure, diastolic 81 mm[Hg] Vi ctoria Tebid blood pressure, systolic 140 mm[Hg] Merritt cari Tebid pulse rate #2 78 [place] Tebid blood pressure, koehler tolic, second observation 83 mm[Hg] Rani Tebid blood pressure, syst olic, second observation 137 mm[Hg] Rani Tebid oxygen saturation, oximetry 98 % [place] Tebid pulse rate 75 /min [place] Tebid blood pressure, diastolic 82 mm[Hg] Vi ctoria Tebid blood pressure, systolic 135 mm[Hg] Merritt cari Tebid pulse rate #2 76 [facility] blood pressure, koehler tolic, second observation 81 mm[Hg] [facility] blood pressure, syst olic, second observation 145 mm[Hg] [place] Tebid oxygen saturation, oximetry 98 % Rani [...] % Rani Tebid pulse rate 68 /min [place] Tebid blood pressure, diastolic 91 mm[Hg] Vi ctoria Tebid blood pressure, systolic 134 mm[Hg] Merritt cari Tebid pulse rate #2 82 [place] Tebid blood pressure, koehler tolic, second observation 86 mm[Hg] Rani Tebid blood pressure, syst olic, second observation 140 mm[Hg] Rani Tebid oxygen saturation, oximetry 98 % [place] Tebid pulse rate 73 /min [place] Tebid blood pressure, diastolic 89 mm[Hg] Vi ctoria Tebid blood pressure, systolic 143 mm[Hg] Merritt cari Tebid pulse rate #2 82 [place] Tebid blood pressure, koehler tolic, second observation 77 mm[Hg] Rani Tebid blood pressure, syst olic, second observation 135 mm[Hg] Rani Tebid oxygen saturation, oximetry 98 % [place] Tebid pulse rate 73 /min [place] Tebid blood pressure, diastolic 89 mm[Hg] Vi ctoria Tebid blood pressure, systolic 148 mm[Hg] Merritt cari Tebid pulse rate #2 77 [place] Tebid blood pressure, koehler tolic, second observation 83 mm[Hg] Rani Tebid blood pressure, syst olic, second observation 146 mm[Hg] [facility], oximetry 98 % Rani bid pulse rate 83 /min [place] bid blood pressure, diastolic 90 mm[Hg] Vi ctoria Tebid blood pressure, systolic 148 mm[Hg] Merritt cari Tebid pulse rate #2 73 [place] bid blood pressure, koehler tolic, second observation 61 mm[Hg] Rani d blood pressure, syst olic, second observation 130 mm[Hg] [facility] oxygen [facility], oximetry 98 % Rani d pulse rate 76 /min [place] d blood pressure, diastolic 65 mm[Hg] Vi ctoria Tebid blood pressure, systolic 139 mm[Hg] Merritt cari Tebid pulse rate #2 74 [place] d blood pressure, koehler tolic, second observation 89 mm[Hg] [facility] blood [facility], syst olic, second observation 132 mm[Hg] Rani bid oxygen saturation, oximetry 98 % Rani d pulse rate 75 /min [place] bid blood pressure, diastolic 91 mm[Hg] Vi ctoria Tebid blood pressure, systolic 158 mm[Hg] Merritt cari Tebid pulse rate #2 73 Rani Tebid blood pressure, koehler tolic, second observation 82 mm[Hg] Rani bid blood pressure, syst olic, second observation 125 mm[Hg] Rani Tebid oxygen saturation, oximetry 98 % Rani d pulse rate 74 /min [place] bid blood pressure, diastolic 93 mm[Hg] Vi ctoria Tebid blood pressure, systolic 152 mm[Hg] Merritt cari Tebid pulse rate #2 81 [place] Tebid blood pressure, koehler tolic, second observation 85 mm[Hg] [facility], second observation 142 mm[Hg] [facility], [facility]xim[facility] 98 % [facility] pulse rate 82 /min [facility] blood pressure, diastolic 68 mm[Hg] Vi ctoria Tebid blood pressure, systolic 142 mm[Hg] Merritt cari Tebid pulse rate #2 78 [place] [facility], koehler tolic, second observation 73 mm[Hg] [facility] blood pressure, syst olic, second observation 122 mm[Hg] [place] Tebid oxygen saturation, oximetry 98 % [facility] pulse rate 75 /min [facility] blood pressure, diastolic 81 mm[Hg] Vi [facility] Tebid blood pressure, systolic 138 mm[Hg] Merritt alcala Tebid Body Mass Index (Ratio) 46.63 kg/m2 Arlene wallace Alonso blood pressure, diastolic 65 mm[Hg] Pr taiwo Alonso blood pressure, systolic 121 mm[Hg] [...] [employer] 3.5-5.2 sodium, serum 142 mmol/L [employer] [id number] 4624/08/ 19 urea nitrogen/creatinine ratio, serum 16 [employer] [...] 0-149 High cholesterol, serum 168 mg/dL [employer] [phone]/09/ 07 hemoglobin A1C, blood, as % of [...] Not Estab. platelet count 206 X10E3/UL [employer] 085-074 4301/09/ 07 red blood cell distribution width 15.1 [...] [employer] 3.5-5.2 sodium, serum 141 mmol/L [employer] 476-280 0013/09/ 07 urea nitrogen/creatinine ratio, serum 20 [employer] [...] iron binding capacity, unsaturated 227 ug/dL [employer] 655-725 5744/02/ 06 iron binding capacity, total 281 ug/dL [employer] [phone]/02/ 06 basophil count, absolute 0.0 x10E3/uL [employer] [...] Not Estab. platelet count 277 X10E3/UL [employer] 147-797 7771/02/ 06 red blood cell distribution width 15.7 [...] 9.0-11.5 platelet count 245 THOUSAND/U L [employer] [phone]/10/ 02 Absolute Basophils 0.0 CELLS/UL [employer] 0.0-0.2 [...] [employer] 3.5-5.1 sodium, serum 140 mmol/L [employer] [phone]/10/ 02 creatinine, serum 0.8 mg/dL [facility] 0.5-0.9 [...] 3.5 - 5.1 sodium, serum 145.0 mmol/L [facility] 145.0 creatinine, serum 0.7 [...] - 1.2 urea nitrogen, blood 15.0 mg/dL [facility] 6.[facility] - 20.0 blood glucose, random 136.0 mg/dL [facility] 74.0 - 99.0 High nitrate usage None Rani Tebid hemoglobin A1C, blood, as % of total hemoglobin 10.9 % [facility] thyroid stimulating hormone, serum 1.120 u[IU]/mL [facility] very low density lipoproteins 52 mg/dL [facility] triglyceride, serum, fasting 260 mg/dL [facility] HDL cholesterol, serum 48 mg/dL [facility] LDL cholesterol, serum 118 mg/dL [facility] cholesterol, serum 218 mg/dL [facility] albumin/globulin ratio, serum 1.3 [facility] protein, total, serum 7.2 g/dL [facility] albumin, serum 4.1 g/dL [facility] bilirubin, serum, total 0.4 mg/dL [facility] alkaline phosphatase, serum 72 1/L [facility] alanine aminotransferase (SGPT), serum 15 1/L [facility] aspartate aminotransferase (SGOT), serum 15 1/L [facility] calcium, serum 9.5 mg/dL [facility] blood glucose, fasting 170 mg/dL [facility] creatinine, serum 0.70 mg/dL [facility] urea nitrogen, blood 8 mg/dL [facility] carbon dioxide, serum, total 17 mmol/L [facility] chloride, serum 99 mmol/L [facility] potassium, serum 4.0 mmol/L [facility] sodium, serum 135 mmol/L [facility] thyroid stimulating hormone, serum 0.94 u[IU]/mL [facility] thyroxine, serum, total 8.1 ug/dL [facility] triglyceride, serum, fasting 182 mg/dL [facility] HDL cholesterol, serum 54 mg/dL [facility] LDL cholesterol, serum 102 mg/dL [facility] cholesterol, serum 192 mg/dL [facility] blood glucose, fasting 113 mg/dL [facility] creatinine, serum 0.9 mg/dL [facility] urea nitrogen, blood 11 mg/dL [facility] carbon dioxide, serum, total 29 mmol/L [facility] chloride, serum 104 mmol/L [facility] potassium, serum 3.8 mmol/L [facility] sodium, serum 140 mmol/L David Mason platelet [...] 1 tablet by mouth every evening Silverio Obando clopidogrel 75 mg tablet completed TAKE 1 TABLET BY MOUTH EVERY DAY - Silverio Ahmedzai clopidogrel 75 mg tablet completed TAKE 1 TABLET BY MOUTH EVERY DAY - [facility] clopidogrel 75 mg tablet completed Take [...] SOLUTION PEN-INJECTOR completed as directed - Jeanine Nowak'Roanldo LASIX 20 MG ORAL TABLET completed one [...] mouth daily - Toño Mann RN PRISTIQ [id number] completed daily - Toño Mann RN ZETIA [...] none Erwin David alcohol use no [place] [place] passive cigarette sm jese exposure no [place] [place] smoking status Never smoker Erwin David drug [...] smoking status Never smoker Raven rae [facility] social history reviewed E&M revi ewed - no changes required Raven Siddiqui [facility] physical exercise, frequency, days per week no [...] physical exercise, frequency, days per week no [facility] use, averag e drinks per day yes [facility] passive cigarette sm jese exposure no [facility] smoking status Never smoker [facility] social history E&M Marital Statu s: [...] physical exercise, frequency, days per week no [facility] alcohol use, average drinks per day no [facility] alcohol use no [facility] caffeine use, averag e drinks per day yes [facility] drug use none [facility] passive cigarette sm jese exposure no [facility] smoking status Never smoker [facility] social history reviewed E&M revi ewed - [...] revi ewed - no changes required Kvng Vlaverde MD physical exercise, frequency, days per week [...] use, average drinks per day no Azra [place] alcohol use no Azra Jone caffeine use, [...] day no Delfino Dixon alcohol use no [place] Dixon caffeine use, averag e drinks per [...] required Kvng Valverde MD alcohol use no Shnaice tamayo smoking status Never smoker Shanice chamberlain [...] Angina (inactive) Management Plan continue current therapy Silveiro Ahmedzai HRA, CV Assess/Plan, Angina (inactive) Management [...] level yes Rani Tebid energy level yes [place] Tebid energy level yes Rani Tebid energy [...] level yes Rani Tebid energy level yes [place] Tebid energy level no [place] Tebid energy level no [place] Tebid energy level no [place] Tebid energy level yes [place] Tebid energy level yes [place] Tebid energy level yes [place] Tebid energy level yes [place] Tebid energy level yes [place] Tebid energy level yes [place] Tebid energy level yes [place] Tebid energy level yes [place] Tebid energy level yes [place] Tebid energy level yes [place] Tebid energy level yes [place] Tebid energy level yes [place] Tebid energy level yes [place] Tebid energy level yes [place] Tebid energy level yes [place] Tebid energy level yes [place] Tebid energy level yes [place] Tebid energy level yes [place] Tebid energy level yes [place] Tebid energy level yes [place] Tebid energy level yes [place] Tebid energy level yes [place] Tebid energy level yes [place] Tebid energy level yes [place] Tebid energy level yes [place] Tebid energy level yes [place] Tebid energy level yes [place] Tebid energy level no [place] Tebid energy level no [place] Tebid energy level yes [place] Tebid energy level no [place] Tebid energy level no [place] Tebid energy level no [place] Tebid energy level yes [place] Tebid energy level no [place] Tebid assessment of judgme nt and insight [...] RN FAMILY HISTORY Family Member Condition Father [place] male <55 Mother Family History of Hy pertension: Mother Family History of Di abetes: Mother Family History Breas t Cancer: Father Family History Coron yash Heart Disease male < 55: INSURANCE PROVIDERS Payer name Policy type / Coverage type [place] red libertarian ID [facility] [employer] [id number] [place] MEDICARE Medicare [id number] ADVANCE DIRECTIVES Name Date DISCUSSED - NO DECISION MADE TREATMENT PLAN Date Name Performer [id number],S, Silverio Ahmedza i [id number],S, Silverio Ahmedza i [id number],S, Silverio Ahmedza i [id number],S, Silverio Ahmedza i [id number],S, Silverio Ahmedza i [id number],S, Silverio Ahmedza i [id number],S, Silverio Ahmedza i [id number],B, Silverio Ahmedza i [id number],S, Silverio Ahmedza i [id number],S, Silverio Ahmedza i [id number],S, Silverio Ahmedza i [id number],S, Silverio Ahmedza i [id number],S, Silverio Ahmedza i [id number],S, Silverio Ahmedza i [id number],B,Pt reports no SOB today Toney Pulido MD [id number],S,P t tried multiple types of compression stockings without helping symptoms. W ill proceed with Venaseal of right leg. Also discussed customized stockings Toney Pulido MD [id number],S,161/69 today Toney Pulido MD [id number],S,P t reports some leg cramping and more pain/swelling in her right leg. Cramping has been somewhat improving. Toney Pulido MD [id number],W, Kvng Valverde MD [id number],S, Kvng Valverde MD [id number],S, Kvng Valverde MD [id number],B, Kvng Valverde MD [id number],S, Kvng Valverde MD [id number],S, Silverio Clark i [id number],S, Silverio Finleymedza i [id number],S, Silverio Ahmedza i [id number],S, Silverio Ahmedza i [id number],S, Silverio Ahmedza i [id number],S, Silverio Ahmedza i [id number],S, Silverio Ahmedza i [id number],S, Silverio Ahmedza i [id number],S, Silverio Ahmedza i [id number],S, Silverio Ahmedza i [id number],S, Silverio Ahmedza i [id number],S, Silverio Ahmedza i [id number],S, Silverio Ahmedza i [id number],S, Silverio Ahmedza i [id number],S, Silverio Ahmedza i [id number],S, Silverio Ahmedza i [id number],S, Silverio Ahmedza i [id number],S, Silverio Ahmedza i [id number],S, Silverio Ahmedza i [id number],S, Silverio Ahmedza i [id number],S, Silverio Ahmedza i [id number],S, Silverio Ahmedza i [id number],S, Silverio Ahmedza i [id number],S, Silverio Ahmedza i [id number],S, Silverio Ahmedza i [id number],S, Silverio Ahmedza i [id number],S, Silverio Ahmedza i [id number],S, Silverio Ahmedza i [id number],S, Silverio Ahmedza i [id number],S, Silverio Ahmedza i [id number],S, Silverio Ahmedza i [id number],S, Silverio Ahmedza i [id number],S, Silverio Ahmedza i [id number],S, Silverio Ahmedza i [id number],S, Silverio Ahmedza i [id number],S, Silverio Ahmedza i [id number],S, Silverio Ahmedza i [id number],S, Kvng Valverde MD [id number],W, Kvng Valverde MD [id number],B, Kvng Valverde MD [id number],B, Kvng Valverde MD [id number],W, Kvng Valverde MD Cardiology: O rders: C BC (INCLUDES DIFF/PLT) (6399) F ERRITIN (457) I JONG AND TOTAL IRON BINDING CAPACITY (7573) C OMPREHENSIVE METABOLIC PANEL, W/EGFR (09403) L IPID PANEL (7600) PROBNP, N TERMINAL (04114) T SH, free T4, total T3 (7444) [...] Kvng Valverde MD Cardiology Silverio Obando Cardiology [facility]: H er updated medication list for this problem includes: Aspirin 81 Mg Tablet,delayed Release (dr/ec) (Aspirin) ..... 1 tablet by mouth once a day Orders: M onitor - Telemetry (Mobile Cardiac) (CPT-62992) [facility]: H er updated medication list for [...] (Dulaglutide) ..... Inject 1 once a week [facility]: H er updated medication list for [...] 54 (04/08/2021) LDL: 83 (04/08/2021) T (04/08/2021) [facility]:This visi t has been a part of the consistent, comprehensive, and ongoing management of the chronic medical condition(s) listed above for the patient. Kvng Valverde MD Cardiology [facility]: O rders: C arotid Duplex Bilateral (CPT-51871) [facility]: H er updated medication list for [...] (Dulaglutide) ..... Inject 1 once a week [facility]: H er updated medication list for this problem includes: Losartan 50 Mg Tablet (Losartan) ..... Take 1/2 tablet by mouth twice a day Furosemide 20 Mg Tablet (Furosemide) ..... Take 1 tablet by mouth every day Aspirin 81 Mg Tablet,delayed Release (dr/ec) (Aspirin) ..... 1 tablet by mouth once a day [facility]:compression advised T [facility] Cardiology:Denies angina, SOB. C ontinue medical therapy [facility] Card[facility]: B P today: 143/74 P rior BP: 118/64 (10/02/2023) Prior 10 Yr Risk Heart Disease: Not enough information (11/29/2021) Labs Reviewed: C reat: 0.87 (04/08/2021) Chol: 168 (04/08/2021) HDL: 54 (04/08/2021) LDL: 83 (04/08/2021) T (04/08/2021) [facility]: B P today: 118/64 P rior BP: 134/66 (09/05/2023) Prior 10 Yr Risk Heart Disease: Not enough information (11/29/2021) Labs Reviewed: C reat: 0.87 (04/08/2021) Chol: 168 (04/08/2021) HDL: 54 (04/08/2021) LDL: 83 (04/08/2021) T (04/08/2021) [facility]audette [facility]: H er updated medication list for this problem includes: Ezetimibe 10 Mg Tablet (Ezetimibe) ..... Take 1 tablet by mouth every day Atorvastatin 80 Mg Tablet (Atorvastatin) ..... Take 1 tablet by mouth every evening [facility] 09/09 23 which revealed normal LVF, The Aortic Valve Mean Gradient is 14.7 m Hg . The ESHA is 1.6 cm2 by planimetry and 1.2 cm2 by calculation. The dimensionless index is 0.5. Silverio Obando Cardiology [facility]io Ahmedzai Cardiology [facility] Ahmedzai Cardiology [...] Toniya Willy rios MD Cardiology [facility] [place] [facility]:The patie nt is using CPAP on [...] ..... Once daily Orders: C omplete Echo (CPT-59792) Mook Green MD follow up: H er updated medication list for this problem includes: Aspirin 81 Mg Tabs (Aspirin) ..... One tab. daily Orders: C omplete Echo (CPT-13031) X -Ray, Chest, PA & Lateral (CPT-53930) Mook Green MD follow up Mook Green [...] hypokinesis with an EF of 50%. 2+ [facility] (08/01/2006) Kvng Valverde MD Follow Up: T [...] with an EF of 50%. 2+ MR. [facility] (08/01/2006) C arotid Doppler/Duplex: Mild plaque with [...] criteria at 79% of target heart rate. [facility] (12/02/2008) C ardiac Cath: Normal coronary arteries. Mild antral hypokinesis with an EF of 50%. 2+ MR. [facility] (08/01/2006) C arotid Doppler/Duplex: Mild plaque is [...] criteria at 79% of target heart rate. [facility] (12/02/2008) C ardiac Cath: Normal coronary arteries. Mild antral hypokinesis with an EF of 50%. 2+ MR. [facility] (08/01/2006) C arotid Doppler/Duplex: Mild plaque is [...] criteria at 79% of target heart rate. [facility] (12/02/2008) C ardiac Cath: Normal coronary arteries. Mild antral hypokinesis with an EF of 50%. 2+ MR. [facility] (08/01/2006) C arotid Doppler/Duplex: Mild plaque is seen in the RCCA. Less than 50% stenosis of the ICA bilaterally. The flow in the vertebra arteries is antegrade bilaterally. [facility] (06/26/2006) C HOL: 192 (12/02/2008) LDL: [...] & TR. [facility] (02/10/2009) Orders: E KG (CPT-52424) Kvng Valverde MD chest pain: H er [...] criteria at 79% of target heart rate. [facility] (12/02/2008) C ardiac Cath: Normal coronary arteries. Mild antral hypokinesis with an EF of 50%. 2+ MR. [facility] (08/01/2006) C arotid Doppler/Duplex: Mild plaque is [...] criteria at 79% of target heart rate. [facility] (12/02/2008) C ardiac Cath: Normal coronary arteries. Mild antral hypokinesis with an EF of 50%. 2+ MR. [facility] (08/01/2006) C arotid Doppler/Duplex: Mild plaque is seen in the RCCA. Less than 50% stenosis of the ICA bilaterally. The flow in the vertebra arteries is antegrade bilaterally. [facility] (06/26/2006) E chocardiogram: TDS. Normal LV systolic function EF 65%. LVH. Dilated LV. Moderate LAE. Trace MR. Trace TR with PA pressure of 21mmHg. [facility] (06/26/2006) Kvng Valverde MD : H er updated medication list for this problem includes: Coreg 3.125 Mg Tabs (Carvedilol) ..... Bid BP today: 127/78 Prior BP: / () N uclear Stress Findings: Test is considered to be negative by ECG criteria at 79% of target heart rate. [facility] (12/02/2008) C ardiac Cath: Normal coronary arteries. Mild antral hypokinesis with an EF of 50%. 2+ MR. [facility] (08/01/2006) C arotid Doppler/Duplex: Mild plaque is seen in the RCCA. Less than 50% stenosis of the ICA bilaterally. The flow in the vertebra arteries is antegrade bilaterally. [facility] (06/26/2006) E chocardiogram: TDS. Normal LV systolic function EF 65%. LVH. Dilated LV. Moderate LAE. Trace MR. Trace TR with PA pressure of 21mmHg. [facility] (06/26/2006) Kvng Valverde MD : H er updated medication list for this problem includes: Coreg 3.125 Mg Tabs (Carvedilol) ..... Bid BP today: 127/78 Prior BP: / () N uclear Stress Findings: Test is considered to be negative by ECG criteria at 79% of target heart rate. [facility] (12/02/2008) C ardiac Cath: Normal coronary arteries. Mild antral hypokinesis with an EF of 50%. 2+ MR. [facility] (08/01/2006) C arotid Doppler/Duplex: Mild plaque is seen in the RCCA. Less than 50% stenosis of the ICA bilaterally. The flow in the vertebra arteries is antegrade bilaterally. [facility] (06/26/2006) Orders: E KG (CPT-50808) Kvng Valverde MD Date Name HEMOGLOBIN A1c TSH, free T4, total T3 PROBNP, N TERMINAL LIPID PANEL COMPREHENSIVE METABO LIC PANEL, W/EGFR IRON AND TOTAL IRON BINDING CAPACITY FERRITIN CBC (INCLUDES DIFF/P LT) Monitor - Telemetry (Mobile Cardiac) Complete Echo Carotid Duplex Bilat eral Carotid Duplex Bilat eral [facility] Venous Doppler Unila teral RLE Venous Doppler Unila teral LLE Venous Doppler Unila teral RLE Venous Doppler Unila teral LLE Arterial Duplex to r /o pseudoanuerysm VenaSeal Venous Doppler Bilat eral LE - Reflux RPM Enroll: BP RPM (remote patient monitoring) Complete Echo DLCO - 56562 FRC - 23691 FVC - 92587 Carotid Duplex Bilat eral CXR- PA/Lat Carotid [...] completed FVC / MVV with bronchodilator - 82062 Kvng Valverde MD completed BLOOD COUNT HEMOGLOBIN Kvng Valverde MD completed FRC - 51774 Kvng Valverde MD complete d SpO2 w/o 6min walk/titration Kvng Valverde MD completed SVC - 05666 Kvng Valverde MD complete d DLCO - 28042 Kvng Valverde MD complet ed EKG Kvng Valverde MD completed EKG Kvng Valverde MD completed EKG Kvng Valverde MD completed EKG Kvng Valverde MD completed EKG Kvng Valverde MD completed SNOMED-CT: [id number] Physical Exam, Performed: Pulse Exam of Foot Kvng Valverde MD completed SNOMED-CT: [id number] [id number] Current Medications Documented Kvng Valverde MD completed SNOMED-CT: [id number] 333843 Current Medications Documented Kvng Valverde MD completed SNOMED-CT: [id number] 857072 Current Medications Documented Kvng Valverde MD completed SNOMED-CT: 02998081 Physical Exam, Performed: Pulse Exam of Foot Kvng Valverde MD completed SNOMED-CT: 73782667 Physical Exam, Performed: Pulse Exam of Foot Kvng Valverde MD completed EKG Kvng Valverde MD completed SNOMED-CT: 872821359 514036 Current Medications Documented Kvng Valverde MD completed SNOMED-CT: 95394833 Physical Exam, Performed: Pulse Exam of Foot Kvng Valverde MD completed SNOMED-CT: 011012698 961290 Current Medications Documented Kvng Valverde MD completed SNOMED-CT: 36013880 Physical Exam, Performed: Pulse Exam of Foot Kvng Valverde MD completed SNOMED-CT: 668683611 820913 Current Medications Documented Kvng Valverde MD completed SNOMED-CT: 10745813 Physical Exam, Performed: Pulse Exam of Foot Kvng Valverde MD completed EKG Kvng Valverde MD completed SNOMED-CT: 038054679 056906 Current Medications Documented Kvng Valverde MD completed EKG Kvng Valverde MD completed EKG Mook Green MD complete d EKG Kvng Valverde MD completed EKG Kvng Valverde MD completed
--- OUTSIDE RECORDS SUMMARY | 2024-12-16 09:15 | XMS_ITS | Clinical Summary ---
Author Organization [facility] Address [address] [place] [address] Phone Care Team Providers Care Beater Lead Name Role Phone Maurice Daniels MD Primary Care Provider Jeremias Grewal MD Unavailable Brennen Maldonado MD Unavailable [phone] Alonso Antunez DNP Unavailable Dejuan Butterfield MD Unavailable [phone] John Avila MD Unavailable Vin Oliver [...] (12/04/2018): Added automatically from request for surgery [id number] Encounters Date Type Department Care Team Description 12/10/2024 9:00 AM CDT Therapy [facility] [address] [place] [phone] Ary Spangler OT Cortical visual impairment (Primary Dx) 12/09/2024 8:30 AM CDT Office Visit [facility] [address] [facility] [address] [place] [address] Romelia Ayoub MD Cortical visual impairment (Primary Dx) 11/26/2024 9:00 AM CDT Therapy [facility]ational [address] [phone] Ary Spangler OT Cortical visual impairment (Primary Dx) 11/26/2024 Plan of Care Documentation [facility] [address] [place] [phone] 11/19/2024 9:00 AM CDT Therapy [facility] [address] [address] Ary Spangler OT Cortical visual impairment (Primary Dx) 11/05/2024 2:30 PM CDT Therapy [address] [address] Ary Spangler OT Cortical visual impairment (Primary Dx) 10/22/2024 12:41 AM ORACLE ADF CONSULTANT - 10/22/2024 11:06 AM [facility] Emergency [facility] Emergency Department [address] [place] [address] Masood Gibson MD COVID-19 virus infection (Primary Dx); Chronic nausea; Chronic abdominal pain; Hypertension, unspecified type Discharge Disposition: Discharge to home or self care 10/01/2024 2:30 PM ORACLE ADF CONSULTANT Therapy [facility] [address] [address] Ary Spangler OT Cortical visual impairment (Primary Dx) 09/24/2024 9:00 AM ORACLE ADF CONSULTANT Therapy [facility] Occup[facility] [address] [address] Ary Spangler OT Cortical visual impairment (Primary [...] on file Legal Sex Female 5:26 AM ORACLE ADF CONSULTANT Gender Identity Not on file Sexual Orientation Not on file Obstetrics History Last Filed Vital Signs Vital Sign Reading Time Taken Comments Blood Pressure 149/48 10/22/2024 9:30 AM ORACLE ADF CONSULTANT Pulse 55 10/22/2024 10:45 AM ORACLE ADF CONSULTANT Temperature 37.1 C (98.7 F) 10/21/2024 11:26 PM ORACLE ADF CONSULTANT Respiratory Rate 16 10/22/2024 10:45 AM ORACLE ADF CONSULTANT Oxygen Saturation 100% 10/22/2024 10:45 AM ORACLE ADF CONSULTANT Inhaled Oxygen Concentration - - Weight 100.7 kg (222 lb) 07/16/2024 10:31 AM ORACLE ADF CONSULTANT Height 157.5 cm (5' 2 ) 07/16/2024 10:31 AM ORACLE ADF CONSULTANT Body Mass Index 40.6 07/16/2024 10:31 AM ORACLE ADF CONSULTANT Plan of Treatment Health Maintenance Due Date [...] 06/06/2018, 07/06/2016 Medical Devices Implanted Type Area Director Ship Device Identifier Shelf Expiration Date Model / Serial / Lot [employer] [id number] Inspiris Resilia Leaflet Sewing Ring 21mm Valve Aortic Bovine - [id number] - [id number] Implanted:Qty: 1 on 01/18/2019 by Jeremias Grewal MD at [facility] N/A: Heart [employer] 09/06/2020 [id number] / [id number] / Description:Aortic Valve Procedures Procedure Name Priority Date/Time Associated Diagnosis Comments RI CRITICAL CARE ILL/INJURED PATIENT INIT 30-74 MIN Routine 10/22/2024 10:45 AM ORACLE ADF CONSULTANT POCT GLUCOSE DEVICE Routine 10/22/2024 8 :[address] ABDOMEN PELVIS W CONTRAST ED 10/22/2024 8:46 AM ORACLE ADF CONSULTANT URINALYSIS AND REFLEX TO MICROSCOPIC AND CULTURE STAT 10/22/2024 8:34 AM ORACLE ADF CONSULTANT RESPIRATORY PATHOGEN PANEL STAT 10/22/2024 8:04 AM ORACLE ADF CONSULTANT LIPASE Add-On 10/22/2024 1:59 AM ORACLE ADF CONSULTANT TROPONIN T HIGH-SENSITIVITY 2-HOUR Timed 10/22/2024 1:59 AM ORACLE ADF CONSULTANT XR CHEST 1 VIEW ED 10/22/2024 12:40 AM ORACLE ADF CONSULTANT EGFR STAT 10/21/2024 11:34 PM ORACLE ADF CONSULTANT DIFFERENTIAL AUTO STAT 10/21/2024 11: 34 PM ORACLE ADF CONSULTANT TROPONIN T HIGH-SENSITIVITY SERIES (BASELINE, 2HR, 4HR, 6HR) STAT 10/21/2024 11:34 PM ORACLE ADF CONSULTANT COMPREHENSIVE METABOLIC PANEL STAT 10/21/2024 11:34 PM ORACLE ADF CONSULTANT CBC WITH AUTO DIFFERENTIAL STAT 10/21/2024 11:34 PM ORACLE ADF CONSULTANT ECG 12-LEAD Routine 10/21/2024 11:29 PM ORACLE ADF CONSULTANT LIPID PANEL Routine 01/20/2019 2:19 AM CDT HEMOGLOBIN A1C Routine 12/31/2018 1:30 PM CDT Preop testing from Last 3 Months or Most Recently Relevant to Health Maintenance Results * RI CRITICAL CARE ILL/INJURED PATIENT INIT 30-74 MIN (10/22/2024 10:45 AM ORACLE ADF CONSULTANT) Narrative Masood Gibson MD - 10/22/2024 10:45 AM ORACLE ADF CONSULTANT Masood Gibson MD 11/04/2024 7:33 PM Critical [...] Result * POCT glucose (10/22/2024 8:54 AM ORACLE ADF CONSULTANT) Glucose, POC 87 70 - 199 mg/dL Blood 10/22/2024 8:54 AM ORACLE ADF CONSULTANT 10/22/2024 8:54 AM ORACLE ADF CONSULTANT us Masood Gibson MD LAB POCT ORDERABLES - SUKH CE Final Result [facility] [address] Department [place] [address] * CT Abdomen Pelvis W Contrast (10/22/2024 8:46 AM ORACLE ADF CONSULTANT) Anatomical Region Laterality Modality Body N/A Computed Tomogra phy 10/22/2024 9:20 AM ORACLE ADF CONSULTANT Impressions 10/22/2024 9:20 AM ORACLE ADF CONSULTANT NO ACUTE INTRA-ABDOMINAL FINDINGS Electronically signed by: Larry Eng M.D. Narrative 10/22/2024 9:20 AM ORACLE ADF CONSULTANT EXAMINATION: CT ABDOMEN PELVIS W CONTRAST DATE: [...] microscopic and culture Urine (10/22/2024 8:34 AM ORACLE ADF CONSULTANT) Color, ur Yellow Yellow Clarity, ur Clear [...] for uric acid stone formation. Source: [facility] Current Interpretive Data was last revised on 2017 Protein, ur ql Negative Negative [facility] Glucose, ur ql Negative Negative [facility] Ketones, ur Negative Negative [facility] Bilirubin, ur Negative Negative [facility] Blood, ur Negative Negative [facility] Urobilinogen, ur <2.0 <2.0 mg/dL [facility] Nitrite, ur Negative Negative [facility] Leukocyte esterase, ur Negative Negative [facility] UA reflex comment Reflex conditions for microscopic UA and culture not met. [facility] Urine 10/22/2024 8:34 AM ORACLE ADF CONSULTANT 10/22/2024 8:39 AM ORACLE ADF CONSULTANT Masood Gibson MD LAB MICROBIOLOGY - GENERAL ORDERABLES Final Result [facility] [address] Department [place] [address] * (ABNORMAL) Respiratory pathogen panel Nasopharyngeal (10/22/2024 8:04 AM ORACLE ADF CONSULTANT) Pathologist [facility] Influenza A RNA Not Detected Not Detected Influenza B RNA Not Detected Not Detected [facility] RSV RNA Not Detected Not Detected [facility] COVID-19 RNA Detected(A) Not Detected [facility] Coronavirus 229E RNA Not Detected Not Detected [facility] Coronavirus HKU1 RNA Not Detected Not Detected [facility] Coronavirus NL63 RNA Not Detected Not Detected [facility] Coronavirus OC43 RNA Not Detected Not Detected [facility] Adenovirus DNA Not Detected Not Detected [facility] Metapneumovirus RNA Not Detected Not Detected [facility] Rhinovirus/Enterov irus RNA Not Detected Not Detected [facility] Parainfluenza 1 RNA Not Detected Not Detected [facility] Parainfluenza 2 RNA Not Detected Not Detected [facility] Parainfluenza 3 RNA Not Detected Not Detected [facility] Parainfluenza 4 RNA Not Detected Not Detected [facility] B. pertussis DNA Not Detected Not Detected [facility] B. parapertussis DNA Not Detected Not Detected [facility] C. pneumoniae DNA Not Detected Not Detected [facility] M. pneumoniae DNA Not Detected Not Detected [facility] Comment: Interpretive Data [employer] [...] assay has FDA clearance for testing of POTLINE MONITOR swabs. The performance characteristics of this assay have been determined by [facility]. Current interpretive data was last revised on 2021. Nasopharyngeal 10/22/2024 8: 04 AM ORACLE ADF CONSULTANT 10/22/2024 8:06 AM [facility] 10/22/2024 9:05 AM ORACLE ADF CONSULTANT Is the Patient experiencing symptoms consistent with COVID?->Yes Surveillance testing for transplant patient?->No Masood Gibson MD LAB MICROBIOLOGY - GENERAL ORDERABLES Final Result Performing Organization Address City/[facility]/ZIP Co de Phone Number [facility] [address] [place] [address] CH * Troponin T high-sensitivity 2-hour (10/22/2024 1:59 AM ORACLE ADF CONSULTANT) Trop T hs 11 <=14 ng/L Comment: Interpretive Data For further hscTnT resources including the diagnostic algorithm and an aid in interpretation, copy and paste this link: https://nrl.testcatalog.org/show/hsTrop Current Interpretive Data last revised 2020. Trop T hs delta 0 ng/L [facility] Trop T hs interp Insignificant [facility] Blood 10/22/2024 1:59 AM ORACLE ADF CONSULTANT 10/22/2024 2:02 AM ORACLE ADF CONSULTANT us Osbaldo Cade MD LAB BLOOD ORDERABLES Final Result Performing Organization Address City/[facility]/ZIP Co de Phone Number [facility] [address] [place] [address] * Lipase (10/22/2024 1:59 AM ORACLE ADF CONSULTANT) Lipase 40 10 - 99 Units/L Blood 10/22/2024 1:59 AM ORACLE ADF CONSULTANT 10/22/2024 2:02 AM ORACLE ADF CONSULTANT Robin GLORIA LAB BLOOD ORDERABLES Final Result [facility] [address] Department [place] [address] * XR Chest 1 Vw Portable (10/22/2024 12:40 AM ORACLE ADF CONSULTANT) Anatomical Region Laterality Modality Body, Chest N/A Computed Radiogr aphy 10/22/2024 9:01 AM ORACLE ADF CONSULTANT Impressions 10/22/2024 9:01 AM ORACLE ADF CONSULTANT No acute cardiopulmonary findings. Electronically signed by: Danie Betancourt II, D.O. Narrative 10/22/2024 9:01 AM ORACLE ADF CONSULTANT EXAMINATION: XR CHEST 1 VIEW DATE: 10/22/2024 [...] (baseline, 2hr, 4hr, 6hr) (10/21/2024 11:34 PM ORACLE ADF CONSULTANT) Trop T hs 11 <=14 ng/L Comment: Interpretive Data For further hscTnT resources including the diagnostic algorithm and an aid in interpretation, copy and paste this link: https://nrl.testcatalog.org/show/hsTrop Current Interpretive Data last revised 2020. Blood 10/21/2024 11:3 4 PM ORACLE ADF CONSULTANT 10/21/2024 11:39 PM ORACLE ADF CONSULTANT Osbaldo Cade MD LAB BLOOD ORDERABLES Final Result [facility] [address] [place] [address] * eGFR (10/21/2024 11:34 PM ORACLE ADF CONSULTANT) eGFR 71 >=60 mL/min/1. 73 m2 Comment: [...] reviewed 2021. Blood 10/21/2024 11:3 4 PM ORACLE ADF CONSULTANT 10/21/2024 11:39 PM ORACLE ADF CONSULTANT us Osbaldo Cade MD LAB BLOOD ORDERABLES Final Result [facility] [address] Department [place] [address] * Differential, auto (10/21/2024 11:34 PM ORACLE ADF CONSULTANT) Pathologist [facility] Neutrophil abs 5.3 1.5 - 6.5 K/cumm Imm gran abs 0.0 0.0 - 0.1 K/cumm [facility] Lymphocyte abs 3.3 0.8 - 3.3 K/cumm [facility] Monocyte abs 0.7 0.2 - 0.8 K/cumm [facility] Eosinophil abs 0.3 0.0 - 0.5 K/cumm [facility] Basophil abs 0.0 0.0 - 0.1 K/cumm [facility] Neutrophil pct 54.8 % [facility] Comment: Interpretive Data Percent cell count reference ranges are not reported, since discordance with absolute values may lead to misinterpretation of CBC data. Current Interpretive Data was last revised on 2017. Imm gran pct 0.3 % [facility] Comment: Interpretive Data Percent cell count reference ranges are not reported, since discordance with absolute values may lead to misinterpretation of CBC data. Current Interpretive Data was last revised on 2017. Lymphocyte pct 34.3 % [facility] Comment: Interpretive Data Percent cell count reference ranges are not reported, since discordance with absolute values may lead to misinterpretation of CBC data. Current Interpretive Data was last revised on 2017. Monocyte pct 7.1 % [facility] Comment: Interpretive Data Percent cell count reference ranges are not reported, since discordance with absolute values may lead to misinterpretation of CBC data. Current Interpretive Data was last revised on 2017. Eosinophil pct 3.3 % [facility] Comment: Interpretive Data Percent cell count reference ranges are not reported, since discordance with absolute values may lead to misinterpretation of CBC data. Current Interpretive Data was last revised on 2017. Basophil pct 0.2 % [facility] Comment: Interpretive Data Percent cell count reference ranges are not reported, since discordance with absolute values may lead to misinterpretation of CBC data. Current Interpretive Data was last revised on 2017. Blood 10/21/2024 11:3 4 PM ORACLE ADF CONSULTANT 10/21/2024 11:39 PM ORACLE ADF CONSULTANT Osbaldo Cade MD LAB BLOOD ORDERABLES Final Result [facility] [address] Department [place] [address] * (ABNORMAL) CBC with auto differential (10/21/2024 11:34 PM ORACLE ADF CONSULTANT) WBC 9.7 3.8 - 9.9 K/cumm Hgb 10.0(L) 11.9 - 15.5 g/dL [facility] Hct 32.4(L) 35.6 - 45.5 % [facility] Plt 242 150 - 400 K/cumm [facility] MPV 10.0 9.1 - 12.3 fL [facility] RBC 4.38 3.90 - 5.20 M/cumm [facility] MCV 74.0(L) 81.3 - 96.4 fL [facility] MCH 22.8(L) 27.1 - 33.3 pg [facility] MCHC 30.9(L) 32.3 - 35.7 g/dL [facility] RDW CV 15.4(H) 11.1 - 14.9 % [facility] RDW SD 41.5 35.7 - 48.1 fL [facility] NRBC abs 0.00 0.00 - 0.01 K/cumm [facility] Blood 10/21/2024 11:3 4 PM ORACLE ADF CONSULTANT 10/21/2024 11:39 PM ORACLE ADF CONSULTANT Osbaldo Cade MD LAB BLOOD ORDERABLES Final Result [facility] [address] [address] Department [place] [address] * Comprehensive metabolic panel (10/21/2024 11:34 PM ORACLE ADF CONSULTANT) Sodium 139 135 - 145 mmol/L Potassium, pl 3.4 3.3 - 4.9 mmol/L [facility] Chloride 105 97 - 110 mmol/L [facility] CO2 22 22 - 32 mmol/L [facility] Anion gap 12 2 - 15 mmol/L [facility] BUN 13 6 - 25 mg/dL [facility] Creatinine 0.89 0.60 - 1.10 mg/dL [facility] Glucose 110 70 - 199 mg/dL [facility] Comment: Interpretive Data Fasting glucose >/= [...] [facility] Blood 10/21/2024 11:3 4 PM ORACLE ADF CONSULTANT 10/21/2024 11:39 PM ORACLE ADF CONSULTANT Osbaldo Cade MD LAB BLOOD ORDERABLES Final Result Performing Organization Address [facility] de Phone Number [facility] [address] Department [place] [address] * ECG 12 lead (10/21/2024 11:29 PM ORACLE ADF CONSULTANT) 10/21/2024 11:2 9 PM ORACLE ADF CONSULTANT Narrative [facility] - 10/22/2024 11:20 AM ORACLE ADF CONSULTANT Vent Rate: 61 bpm RR Interval: 982 msec RI Interval: 194 msec QRS Duration: 101 msec QT Interval: 390 msec QTC Interval: 392 msec P-R-T Edward: 31 - 0 - 51 degrees IMPRESSION: SINUS RHYTHM NORMAL ECG Electronically Signed By: Isac Souza MD Osbaldo Cade MD ECG ORDERABLES Final Resul t Performing Organization Address [facility] Co de Phone Number [facility] Boke [facility] * Lipid panel (01/20/2019 2:19 AM [...] ORDERABLES Final Resu lt Performing Organization Address [facility] de Phone Number [facility] [address] [facility] [place] [address] * (ABNORMAL) Hemoglobin A1c (12/31/2018 1:30 PM CDT) Hgb A1C 7.6(H) 4.0 - 5.6 % [facility] Estimated Average Glucose 171 mg/dL [facility] Comment: The ADA recommends reporting an estimated Average Glucose (eAG) with all Hemoglobin A1c results using the equation derived from a study of 507 normal and diabetic adults. Minority populations were underrepresented and children were not included. (Diabetes Care 31:2179-0068, 2008). The eAG is not equivalent to a fasting glucose. Blood specimen (specimen) 12/31/2018 1:30 PM CDT 12/31/2018 3:16 PM CDT Narrative [facility] - 12/31/2018 5:03 PM CDT Jeremias Grewal MD LAB BLOOD ORDERABLES Final R esult Performing Organization Address [facility] Co de Phone Number [facility] [address] Department [employer] [place], [place] [id number] from Last 3 Months or Most Recently Relevant to Health Maintenance Additional Health Concerns Infection Onset Date Last Indicated COVID: Recovered Comment:Added based on recent COVID infection. 11/01/2024 025 Insurance MEDICARE [facility] MEDICARE [facility] MEDICARE MEDICARE [facility] Advance Directives For more information, please contact: [phone] * Full Code (Latest Code Status on File) Date Activated Date Inactivated Comments 01/29/2019 6:44 PM 02/08/2019 10:55 PM * Full Code Date Activated Date Inactivated Comments 01/18/2019 2:27 PM 01/29/2019 6:14 PM Care Teams Beater Lead Relationship Specialty Start Date End Date Maurice Daniels MD PCP - General 12/05/17 Jeremias Grewal MD Surgeon Cardiothoracic Surgery 10/07/19 Brennen Maldonado MD [address] [place] [address] Consulting Physician Hematology and Oncology 05/18/23 Alonso Antunez DNP [address] [place] [address] Nurse Practitioner Hematology and Oncology 05/18/23 Dejuan Butterfield MD [address] [facility] [address] [place] [address] Referring Physician Ophthalmology 01/11/24 John Avila MD [address] [place] [address] Referring Physician Obstetrics and Gynecology 05/27/24 Vin Oliver MD [address] [place] [address] Referring Physician Psychiatry 05/27/24 [place] [address] [facility] [address] [place] [address] Consulting Physician Cardiology 05/27/24 Prabhu Harp NP [address] [place], [place] [id number] Nurse Practitioner Sleep Medicine 05/27/24 Ary Spangler OT [address] [place], [place] [id number] Occupational Therapist Occupational Therapy 09/10/24
--- OUTSIDE RECORDS SUMMARY | 2024-12-16 09:15 | XMS_ITS | Referral Summary ---
Author Organization [facility] Address [address] [place] [address] Phone Care Team Providers Care Laborer Car Barn Name Role Phone Maurice Daniels MD Primary Care Provider Jeremias Grewal MD Unavailable Brennen Maldonado MD Unavailable Alonso Antunez DNP Unavailable Dejuan Butterfield MD Unavailable [phone] John Avila MD Unavailable Vin Oliver MD Unavailable [phone] Kvng Valverde MD Unavailable Prabhu Harp NP Unavailable Ary Spangler OT Unavailable Encounters Date Type Department Care Team Description 12/10/2024 9:00 AM CDT Therapy [facility] Occupational Therapy [address] [place] [address] Ary Spangler OT Cortical visual impairment (Primary Dx) 12/09/2024 8:30 AM CDT Office Visit [facility] Ophthalmology [address] [facility] 6th [place] [address] Romelia Ayoub MD Cortical visual impairment (Primary Dx) 11/26/2024 Plan of Care Documentation [facility] Occupational Therapy [address] [place] [phone] 11/26/2024 9:00 AM CDT Therapy [address] [address] Ary Spangler OT Cortical visual impairment (Primary Dx) 11/19/2024 9:00 AM CDT Therapy [facility] Occupational [address] [address] Ary Spangler OT Cortical visual impairment (Primary Dx) 11/05/2024 2:30 PM CDT Therapy [address] [address] Ary Spangler OT Cortical visual impairment (Primary Dx) 10/22/2024 12:41 AM PLANT PROTECTION SUPERINTENDENT - 10/22/2024 11:[address] [facility] Emergency Department [address] [place] [address] Masood Gibson MD COVID-19 virus infection (Primary Dx); Chronic nausea; Chronic abdominal pain; Hypertension, unspecified type Discharge Disposition: Discharge to home or self care 10/01/2024 2:30 PM PLANT PROTECTION SUPERINTENDENT Therapy [facility] Occupational [address] [address] Ary Spangler OT Cortical visual impairment (Primary Dx) 09/24/2024 9:00 AM PLANT PROTECTION SUPERINTENDENT Therapy [facility] Occupational [address] [address] Ary Spangler OT Cortical visual impairment (Primary [...] (12/04/2018): Added automatically from request for surgery [id number] Immunizations Immunization Administration Dates Next Due Influenza, [...] on file Legal Sex Female 5:26 AM PLANT PROTECTION SUPERINTENDENT Gender Identity Not on file Sexual Orientation Not on file Last Filed Vital Signs Vital Sign Reading Time Taken Comments Blood Pressure 149/48 10/22/2024 9:30 AM PLANT PROTECTION SUPERINTENDENT Pulse 55 10/22/2024 10:45 AM PLANT PROTECTION SUPERINTENDENT Temperature 37.1 C (98.7 F) 10/21/2024 11:26 PM PLANT PROTECTION SUPERINTENDENT Respiratory Rate 16 10/22/2024 10:45 AM PLANT PROTECTION SUPERINTENDENT Oxygen Saturation 100% 10/22/2024 10:45 AM PLANT PROTECTION SUPERINTENDENT Inhaled Oxygen Concentration - - Weight 100.7 kg (222 lb) 07/16/2024 10:31 AM PLANT PROTECTION SUPERINTENDENT Height 157.5 cm (5' 2 ) 07/16/2024 10:31 AM PLANT PROTECTION SUPERINTENDENT Body Mass Index 40.6 07/16/2024 10:31 AM PLANT PROTECTION SUPERINTENDENT Plan of Treatment Not on file Medical Devices Implanted Type Area Incinerator Operator Device Identifier Shelf Expiration Date Model / Serial / Lot [employer] [id number] Effie Dailya Leaflet Sewing Ring 21mm Valve Aortic Bovine - [id number] - [id number] Implanted:Qty: 1 on 01/18/2019 by Jeremias Grewal MD at [facility] N/A: Heart [employer] 09/06/2020 [id number] / [id number] / Description:Aortic Valve Procedures Procedure Name Priority Date/Time Associated Diagnosis Comments [facility] CRITICAL CARE ILL/INJURED PATIENT INIT 30-74 MIN Routine 10/22/2024 10:45 AM PLANT PROTECTION SUPERINTENDENT POCT GLUCOSE DEVICE Routine 10/22/2024 8 :54 AM PLANT PROTECTION SUPERINTENDENT CT ABDOMEN PELVIS W CONTRAST ED 10/22/2024 8:46 AM PLANT PROTECTION SUPERINTENDENT URINALYSIS AND REFLEX TO MICROSCOPIC AND CULTURE STAT 10/22/2024 8:34 AM PLANT PROTECTION SUPERINTENDENT RESPIRATORY PATHOGEN PANEL STAT 10/22/2024 8:04 AM PLANT PROTECTION SUPERINTENDENT LIPASE Add-On 10/22/2024 1:59 AM PLANT PROTECTION SUPERINTENDENT TROPONIN T HIGH-SENSITIVITY 2-HOUR Timed 10/22/2024 1:59 AM PLANT PROTECTION SUPERINTENDENT XR CHEST 1 VIEW ED 10/22/2024 12:40 AM PLANT PROTECTION SUPERINTENDENT EGFR STAT 10/21/2024 11:34 PM PLANT PROTECTION SUPERINTENDENT DIFFERENTIAL AUTO STAT 10/21/2024 11: 34 PM PLANT PROTECTION SUPERINTENDENT TROPONIN T HIGH-SENSITIVITY SERIES (BASELINE, 2HR, 4HR, 6HR) STAT 10/21/2024 11:34 PM PLANT PROTECTION SUPERINTENDENT COMPREHENSIVE METABOLIC PANEL STAT 10/21/2024 11:34 PM PLANT PROTECTION SUPERINTENDENT CBC WITH AUTO DIFFERENTIAL STAT 10/21/2024 11:34 PM PLANT PROTECTION SUPERINTENDENT ECG 12-LEAD Routine 10/21/2024 11:29 PM PLANT PROTECTION SUPERINTENDENT LIPID PANEL Routine 01/20/2019 2:19 AM CDT HEMOGLOBIN A1C Routine 12/31/2018 1:30 PM CDT Preop testing from Last 3 Months or Most Recently Relevant to Health Maintenance Results * [facility] CRITICAL CARE ILL/INJURED PATIENT INIT 30-74 MIN (10/22/2024 10:45 AM PLANT PROTECTION SUPERINTENDENT) Narrative Masood Gibson MD - 10/22/2024 10:45 AM PLANT PROTECTION SUPERINTENDENT Masood Gibson MD 11/04/2024 7:33 PM Critical [...] Result * POCT glucose (10/22/2024 8:54 AM PLANT PROTECTION SUPERINTENDENT) Glucose, POC 87 70 - 199 mg/dL Blood 10/22/2024 8:54 AM PLANT PROTECTION SUPERINTENDENT 10/22/2024 8:54 AM PLANT PROTECTION SUPERINTENDENT us Masood Gibson MD LAB POCT ORDERABLES - SUKH CE Final Result [facility] [address] Department [place] [address] * CT Abdomen Pelvis W Contrast (10/22/2024 8:46 AM PLANT PROTECTION SUPERINTENDENT) Anatomical Region Laterality Modality Body N/A Computed Tomogra phy 10/22/2024 9:20 AM PLANT PROTECTION SUPERINTENDENT Impressions 10/22/2024 9:20 AM PLANT PROTECTION SUPERINTENDENT NO ACUTE INTRA-ABDOMINAL FINDINGS Electronically signed by: Larry Eng M.D. Narrative 10/22/2024 9:20 AM PLANT PROTECTION SUPERINTENDENT EXAMINATION: CT ABDOMEN PELVIS W CONTRAST DATE: [...] microscopic and culture Urine (10/22/2024 8:34 AM PLANT PROTECTION SUPERINTENDENT) Color, ur Yellow Yellow Clarity, ur Clear [...] on 2017 Protein, ur ql Negative Negative [facility] Glucose, ur ql Negative Negative [facility] Ketones, ur Negative Negative [facility] Bilirubin, ur Negative Negative [facility] Blood, ur Negative Negative [facility] Urobilinogen, ur <2.0 <2.0 mg/dL [facility] Nitrite, ur Negative Negative [facility] Leukocyte esterase, ur Negative Negative [facility] UA reflex comment Reflex conditions for microscopic UA and culture not met. [facility] Urine 10/22/2024 8:34 AM PLANT PROTECTION SUPERINTENDENT 10/22/2024 8:39 AM PLANT PROTECTION SUPERINTENDENT Masood Gibson MD LAB MICROBIOLOGY - GENERAL ORDERABLES Final Result [facility] [address] Department [place] [address] * (ABNORMAL) Respiratory pathogen panel Nasopharyngeal (10/22/2024 8:04 AM PLANT PROTECTION SUPERINTENDENT) Pathologist [facility] Influenza A RNA Not Detected Not Detected Influenza B RNA Not Detected Not Detected [facility] RSV RNA Not Detected Not Detected [facility] COVID-19 RNA Detected(A) Not Detected [facility] Coronavirus 229E RNA Not Detected Not Detected [facility] Coronavirus HKU1 RNA Not Detected Not Detected [facility] Coronavirus NL63 RNA Not Detected Not Detected [facility] Coronavirus OC43 RNA Not Detected Not Detected [facility] Adenovirus DNA Not Detected Not Detected [facility] Metapneumovirus RNA Not Detected Not Detected [facility] Rhinovirus/Enterov irus RNA Not Detected Not Detected [facility] Parainfluenza 1 RNA Not Detected Not Detected [facility] Parainfluenza 2 RNA Not Detected Not Detected [facility] Parainfluenza 3 RNA Not Detected Not Detected [facility] Parainfluenza 4 RNA Not Detected Not Detected [facility] B. pertussis DNA Not Detected Not Detected [facility] B. parapertussis DNA Not Detected Not Detected [facility] C. pneumoniae DNA Not Detected Not Detected [facility] M. pneumoniae DNA Not Detected Not Detected [facility] Comment: Interpretive Data The [employer] FilmArray Respiratory Panel (RP2.1) assay is a [...] assay has FDA clearance for testing of MARKET RISK ANALYST swabs. The performance characteristics of this assay have been determined by [facility]. Current interpretive data was last revised on 2021. Nasopharyngeal 10/22/2024 8: 04 AM PLANT PROTECTION SUPERINTENDENT 10/22/2024 8:06 AM PLANT PROTECTION SUPERINTENDENT [facility] 10/22/2024 9:05 AM PLANT PROTECTION SUPERINTENDENT Is the Patient experiencing symptoms consistent with COVID?->Yes Surveillance testing for transplant patient?->No Masood Gibson MD LAB MICROBIOLOGY - GENERAL ORDERABLES Final Result Performing Organization Address City/[facility]/ZIP Co de Phone Number [facility] [address] Department [place] [address] CH * Troponin T high-sensitivity 2-hour (10/22/2024 1:59 AM PLANT PROTECTION SUPERINTENDENT) Trop T hs 11 <=14 ng/L Comment: Interpretive Data For further hscTnT resources including the diagnostic algorithm and an aid in interpretation, copy and paste this link: https://nrl.testcatalog.org/show/hsTrop Current Interpretive Data last revised 2020. Trop T hs delta 0 ng/L [facility] Trop T hs interp Insignificant [facility] Blood 10/22/2024 1:59 AM PLANT PROTECTION SUPERINTENDENT 10/22/2024 2:02 AM PLANT PROTECTION SUPERINTENDENT Osbaldo Cade MD LAB BLOOD ORDERABLES Final Result Performing Organization Address City/[facility]/ZIP Co de Phone Number [facility] [address] Department [place] [address] * Lipase (10/22/2024 1:59 AM PLANT PROTECTION SUPERINTENDENT) Lipase 40 10 - 99 Units/L Blood 10/22/2024 1:59 AM PLANT PROTECTION SUPERINTENDENT 10/22/2024 2:02 AM PLANT PROTECTION SUPERINTENDENT Robin GLORIA LAB BLOOD ORDERABLES Final Result Performing Organization Address City/[facility]/ZIP Co de Phone Number [facility] [address] Department [place] [address] * XR Chest 1 Vw Portable (10/22/2024 12:40 AM PLANT PROTECTION SUPERINTENDENT) Anatomical Region Laterality Modality Body, Chest N/A Computed Radiogr aphy 10/22/2024 9:01 AM PLANT PROTECTION SUPERINTENDENT Impressions 10/22/2024 9:01 AM PLANT PROTECTION SUPERINTENDENT No acute cardiopulmonary findings. Electronically signed by: Danie Betancourt II, D.O. Narrative 10/22/2024 9:01 AM PLANT PROTECTION SUPERINTENDENT EXAMINATION: XR CHEST 1 VIEW DATE: 10/22/2024 [...] (baseline, 2hr, 4hr, 6hr) (10/21/2024 11:34 PM PLANT PROTECTION SUPERINTENDENT) Trop T hs 11 <=14 ng/L Comment: Interpretive Data For further hscTnT resources including the diagnostic algorithm and an aid in interpretation, copy and paste this link: https://nrl.testcatalog.org/show/hsTrop Current Interpretive Data last revised 2020. Blood 10/21/2024 11:3 4 PM PLANT PROTECTION SUPERINTENDENT 10/21/2024 11:39 PM PLANT PROTECTION SUPERINTENDENT us Osbaldo Cade MD LAB BLOOD ORDERABLES Final Result [facility] [address] Department [place] [address] * eGFR (10/21/2024 11:34 PM PLANT PROTECTION SUPERINTENDENT) eGFR 71 >=60 mL/min/1. 73 m2 Comment: [...] reviewed 2021. Blood 10/21/2024 11:3 4 PM PLANT PROTECTION SUPERINTENDENT 10/21/2024 11:39 PM PLANT PROTECTION SUPERINTENDENT us Osbaldo Cade MD LAB BLOOD ORDERABLES Final Result [facility] [address] Department [place] [address] * Differential, auto (10/21/2024 11:34 PM PLANT PROTECTION SUPERINTENDENT) Pathologist [facility] Neutrophil abs 5.3 1.5 - 6.5 K/cumm Imm gran abs 0.0 0.0 - 0.1 K/cumm [facility] Lymphocyte abs 3.3 0.8 - 3.3 K/cumm [facility] Monocyte abs 0.7 0.2 - 0.8 K/cumm [facility] Eosinophil abs 0.3 0.0 - 0.5 K/cumm [facility] Basophil abs 0.0 0.0 - 0.1 K/cumm [facility] Neutrophil pct 54.8 % [facility] Comment: Interpretive Data Percent cell count reference ranges are not reported, since discordance with absolute values may lead to misinterpretation of CBC data. Current Interpretive Data was last revised on 2017. Imm gran pct 0.3 % [facility] Comment: Interpretive Data Percent cell count reference ranges are not reported, since discordance with absolute values may lead to misinterpretation of CBC data. Current Interpretive Data was last revised on 2017. Lymphocyte pct 34.3 % [facility] Comment: Interpretive Data Percent cell count reference ranges are not reported, since discordance with absolute values may lead to misinterpretation of CBC data. Current Interpretive Data was last revised on 2017. Monocyte pct 7.1 % [facility] Comment: Interpretive Data Percent cell count reference ranges are not reported, since discordance with absolute values may lead to misinterpretation of CBC data. Current Interpretive Data was last revised on 2017. Eosinophil pct 3.3 % [facility] Comment: Interpretive Data Percent cell count reference ranges are not reported, since discordance with absolute values may lead to misinterpretation of CBC data. Current Interpretive Data was last revised on 2017. Basophil pct 0.2 % [facility] Comment: Interpretive Data Percent cell count reference ranges are not reported, since discordance with absolute values may lead to misinterpretation of CBC data. Current Interpretive Data was last revised on 2017. Blood 10/21/2024 11:3 4 PM PLANT PROTECTION SUPERINTENDENT 10/21/2024 11:39 PM PLANT PROTECTION SUPERINTENDENT us Osbaldo Cade MD LAB BLOOD ORDERABLES Final Result [facility] [address] Department [place] [address] * (ABNORMAL) CBC with auto differential (10/21/2024 11:34 PM PLANT PROTECTION SUPERINTENDENT) WBC 9.7 3.8 - 9.9 K/cumm Hgb 10.0(L) 11.9 - 15.5 g/dL [facility] Hct 32.4(L) 35.6 - 45.5 % [facility] Plt 242 150 - 400 K/cumm [facility] MPV 10.0 9.1 - 12.3 fL [facility] RBC 4.38 3.90 - 5.20 M/cumm [...] [facility] Blood 10/21/2024 11:3 4 PM PLANT PROTECTION SUPERINTENDENT 10/21/2024 11:39 PM PLANT PROTECTION SUPERINTENDENT us Osbaldo Cade MD LAB [place]LO[place] [address] [address] Department [place] [address] * Comprehensive metabolic panel (10/21/2024 11:34 PM PLANT PROTECTION SUPERINTENDENT) Sodium 139 135 - 145 mmol/L Potassium, [...] [facility] Blood 10/21/2024 11:3 4 PM PLANT PROTECTION SUPERINTENDENT 10/21/2024 11:39 PM PLANT PROTECTION SUPERINTENDENT Osbaldo Cade MD LAB BLOOD ORDERABLES Final Result [facility] [address] Department [place] [address] * ECG 12 lead (10/21/2024 11:29 PM PLANT PROTECTION SUPERINTENDENT) 10/21/2024 11:2 9 PM PLANT PROTECTION SUPERINTENDENT Narrative [facility] - 10/22/2024 11:20 AM PLANT PROTECTION SUPERINTENDENT Vent Rate: 61 bpm RR Interval: 982 msec [place] Interval: 194 msec QRS Duration: 101 msec QT Interval: 390 msec QTC Interval: 392 msec P-R-T Bagley: 31 - 0 - 51 degrees IMPRESSION: SINUS RHYTHM NORMAL ECG Electronically Signed By: Isac Souza MD Osbaldo Cade MD ECG ORDERABLES Final Resul t Performing Organization Address City/[facility]/ZIP Co de Phone Number [facility] General [employer] [facility] * Lipid panel (01/20/2019 2:19 AM CDT) [...] last revised on 2018. Chol/HDL ratio 2 [facility] Blood specimen (specimen) 01/20/2019 2:19 AM CDT 01/20/2019 2:30 AM CDT Narrative [facility] - 01/20/2019 3:12 AM CDT Mook Green MD LAB BLOOD ORDERABLES Final Resu lt Performing Organization Address [facility] de Phone Number [facility] [address] [place] [address] * (ABNORMAL) Hemoglobin A1c (12/31/2018 1:30 PM CDT) Hgb A1C 7.6(H) 4.0 - 5.6 % [facility] Estimated Average Glucose 171 mg/dL [facility] Comment: The ADA recommends reporting an estimated Average Glucose (eAG) with all Hemoglobin A1c results using the equation derived from a study of 507 normal and diabetic adults. Minority populations were underrepresented and children were not included. (Diabetes Care 31:8161-6097, 2008). The eAG is not equivalent to a fasting glucose. Blood specimen (specimen) 12/31/2018 1:30 PM CDT 12/31/2018 3:16 PM CDT Narrative [facility] - 12/31/2018 5:03 PM CDT Jeremias Grewal MD LAB BLOOD ORDERABLES Final R esult Performing Organization Address [facility] Co de Phone Number [facility] [address] Department [employer] [place], [place] [id number] from Last 3 Months or Most Recently Relevant to Health Maintenance Additional Health Concerns Infection Onset Date Last Indicated COVID: Recovered Comment:Added based on recent COVID infection. 11/01/2024 025 Insurance MEDICARE [place] MEDICARE [facility] MEDICARE MEDICARE [facility] Advance Directives For more information, please contact: [phone] * Full Code (Latest Code Status on File) Date Activated Date Inactivated Comments 01/29/2019 6:44 PM 02/08/2019 10:55 PM * Full Code Date Activated Date Inactivated Comments 01/18/2019 2:27 PM 01/29/2019 6:14 PM Care Teams Laborer Car Barn Relationship Specialty Start Date End Date Maurice Daniels MD PCP - General 12/05/17 Jeremias Grewal MD Surgeon Cardiothoracic Surgery 10/07/19 Brennen Maldonado MD [address] [place] [address] Consulting Physician Hematology and Oncology 05/18/23 Alonso Antunez DNP [address] [place] [address] Nurse Practitioner Hematology and Oncology 05/18/23 Dejuan Butterfield MD [address] [facility] [address] [place] [address] Referring Physician Ophthalmology 01/11/24 John Avila MD [address] [facility] [address] [facility] [address] [place] [address] Referring Physician Obstetrics and Gynecology 05/27/24 Vin Oliver MD [address] [facility] [place] [address] Referring Physician Psychiatry 05/27/24 [place] [address] [facility] [address] [place] [address] Consulting Physician Cardiology 05/27/24 Prabhu Harp NP [address] [place] [address] Nurse Practitioner Sleep Medicine 05/27/24 Ary Spangler OT [address] [place] [address] Occupational Therapist Occupational Therapy 09/10/24
--- OUTSIDE RECORDS SUMMARY | 2024-12-16 09:15 | XMS_ITS | Data Portability ---
Author Organization [facility], Main Office Address [address] [place] [address] Care Team Providers Care Energy Projects Lead Name Role Phone ANABELLA DANIELS Primary Care Provider ANABELLA DANIELS Referring Provider [phone] [facility] [place] Manager Organizational HITESH COOPER Drawer Maker [facility] NEURO PSYCHOLOGY Neuropsyc hiatrist THIERNO SHELTON Orthopedic Surgeon [phone] MAGGIE VINCENT English Adjunct Faculty Assessment No assessment recorded. Plan of Treatment Reminders Order Date Submit Date Provider Last Modified By Organization Details Last Modified Time Details Appointments Any 15 2024 11:30A M Anabella Daniels MD Not available Not available Not available Lab None recorded. Referral None recorded. Procedures upper endoscopy procedure (EGD) (PROC) - Please call patient to schedule. 2024 025 [email or web address] Vin Navarrete MD, [address] [facility] [address], [place], [address], 10/28/2024 08:53:18 [email or web address] n tube balloon dilation (PROC) 2023 024 [email or web address] In-Office Order, Internal Use Only DO Not Attach Compendium DO Not Attach Compendium, Do Not Delete/merge, [id number] 08/01/2024 14:20:00 Surgeries None recorded. Imaging None recorded. Medication Orders ondansetr on 4 mg disintegr ating tablet 2024 025 LEYLA [id number], [address], [place], [address], 09/11/2024 16:27:00 Patient TargetsNo targets recorded. Patient Instructions Encounter Date Encounter Id Patient Instructions Last Modified By Organization Details Last Modified Time 10/10/2024 [id number] she will have th e PE tubes removed. We discussed this in the office but she reports she is unable to tolerate any pain. Not available 10/10/2024 14:21:31 11/07/2024 [id number] this patient has accepted that her hearing is age-related and will return as needed Not available 11/07/2024 12:40:49 Reason for Referral None Reported. Results Created Date Observation Date Name Description Value Unit Range Abnormal Flag Note LastModifiedBy Organization Detail LastModifiedTime 07/02/20 24 07/02/2024 audio gram + tympa nogra m No observ ation record ed. [email or web address] [facility] [address] [facility] [address], [place], [address], 07/09/2024 09:13:58 07/03/20 24 07/03/2024 audio gram + tympa nogra m No observ ation record ed. [facility] [address], [place], [address], 07/03/2024 17:48:13 12/14/19 25 12/13/2024 gastr ic empty ing study (PROC ) No observ ation record ed. LEYLA Not Available 2024 17:51:36 Result Notes None recorded. Problems Name Problem SNOMED Code Status Onset Date Resolution Date Notes Provider Name and Address Organization Details Recorded Time Urinary symptoms 815706829 Active 2022 Not Available [facility] 3 06:28:19 Acute urinary tract infection 730915745 Active 2022 TOMMY Mason, [place] [employer] [facility] 3 14:40:48 Pain of left wrist 33633379325 9102 Active 2023 Anabella Daniels MD [address], [address], [place], [address] , [facility] 4 11:56:21 Osteoporo sis 54158591 Active 2023 Mercedes Calderon LPN null, [facility] 4 10:56:50 Pain of wrist region 70320948 Active 2023 Juli Richter MA null, [facility] 4 16:34:26 Tenosynov itis of left radial styloid 14273540648 458765 Active 2023 JUANI Tariq [address], [place], [address] , [facility] 4 09:15:14 Urinary tract infectiou s disease 31923268 Active 2023 Juli Richter MA null, [facility] 4 16:23:21 Idiopathi c periphera l neuropath y 21470761 Active 2023 Diane Serra null, [facility] 4 09:12:18 Pain of left hand 12409835993 9103 Active 2023 JUANI Tariq [address], [place], [address] , [facility] 4 09:17:05 Claustrop hobia 93767225 Active 2023 Juli Richter MA null, [facility] 4 11:48:35 Infection of skin 855445032 Active 2023 Anabella Daniels MD [address], [address], [place], [address] , [facility] 4 10:43:17 Coronary arteriosc lerosis 06747845 Active 2023 Anabella Daniels MD [address], [address], [place], [address] , [facility] 4 10:48:58 Nausea 239495687 Active 2023 Juli Richter MA null, [place] [facility] 4 14:07:03 Sensorine ural hearing loss 72006791 Active 2023 Freeman Cooley CMA null, [place] [facility] [place] [facility] 4 15:23:08 Dysfuncti on of bilateral eustachia n tubes 09310603134 59848 Active 2023 DIAZ Morrell [address], [address], [place], [address] , [facility] 4 15:25:15 Referred otalgia 49206822 Active 2023 Dalievette Carrera null, [place] [facility] 4 11:54:53 Dysfuncti on of eustachia n tube 55604862 Active 2023 Maggie Vincent MD [address], [address], [place], [address] , [facility] 4 12:58:59 Allergic rhinitis 40544306 Active 2024 Dali Deandre null, [place] [facility] 5 11:46:51 Pain in throat 053527968 Active 2024 Dali Deandre null, [facility] 5 11:46:51 Dysfuncti on of eustachia n tube 88135190 Active 2024 Dali Deandre null, [facility] 5 11:55:41 Nausea and vomiting 09224325 Active 2024 Anabella Daniels MD [address], [address], [place], [address] , [facility] 5 16:24:18 Edema of lower extremity 974953346 Completed 201701/01/2018 Not Available [facility] 3 04:53:25 Acute bronchiti s 26919829 Completed Not Available [facility] 3 04:53:25 Pain in lower limb 25542117 Completed Not Available [facility] 3 04:53:25 Injury of lower limb 246520479 Completed Not Available [facility] 3 04:53:25 External hordeolum 4542373 Completed Not Available [facility] 3 04:53:25 Acquired trigger finger 7212181 Completed Not Available [facility] 3 04:53:25 Acute sinusitis 11380015 Active 2021 Not Available [facility] 3 06:28:19 Radiother apy follow-up 325129650 Completed Not Available [facility] 3 04:53:25 Insomnia 994754248 Active Not Available [facility] 3 06:28:19 Asthma 479880898 Active Not Available [facility] 3 06:28:19 Non-alcoh olic fatty liver 137987150 Active Not Available [facility] 3 06:28:19 Steatotic liver disease Completed 202002/04/2022 Not Available [facility] 3 04:53:26 Steatotic liver disease Completed Not Available [facility] 3 04:53:26 Abdominal pain 82035553 Completed Not Available [facility] 3 04:53:26 Sciatica 83773968 Active Not Available [facility] 3 06:28:19 Gastroeso phageal reflux disease 205835006 Active Not Available [facility] 3 06:28:19 Chafing of skin 024825166 Completed Not Available [facility] 3 04:53:26 Headache 48312303 Completed Not Available [facility] 3 04:53:26 Dyspnea 531083234 Completed Not Available [facility] 3 04:53:26 Edema 376549151 Completed 201802/04/2022 Not Available [facility] 3 04:53:27 Adult health examinati on Active 2020 Not Available [facility] 3 06:28:19 Anemia 217073266 Active Not Available [facility] 3 06:28:19 Low back pain 020044136 Completed Not Available [facility] 3 04:53:27 Knee pain Completed Not Available [facility] 3 04:53:27 Osteopeni a 329995230 Active 2018 Not Available [facility] 3 06:28:19 Changing color of pigmented skin lesion 262602189 Active Not Available [facility] 3 06:28:19 Pain of left hip joint 51765611393 9100 Active 2022 Not Available [facility] 3 06:28:19 Vitamin D deficienc y 93186315 Active 2018 Not Available [facility] 3 06:28:19 Depressiv e disorder 05167457 Active Not Available [facility] 3 06:28:19 Heart valve disorder 989274 Active Not Available [facility] 3 06:28:19 Sinusitis 19612559 Completed Not Available [facility] 3 04:53:28 Hypertens celestino disorder 54816872 Active Not Available [facility] 3 06:28:19 Memory impairmen t 422658964 Completed Not Available [facility] 3 04:53:29 Osteoarth ritis 461363024 Active Not Available [facility] 3 06:28:19 Thalassem ia 04411868 Active Not Available [facility] 3 06:28:19 Dizziness 634724957 Completed Not Available [facility] 3 04:53:29 Dysphagia 97125142 Active 2021 Not Available [facility] 3 06:28:19 Obesity 034693712 Active Not Available [facility] 3 06:28:19 Nausea 839482124 Completed TOMMY Reina[place] [facility] 4 14:07:03 Diabetic periphera l neuropath y 726702986 Active Not Available [facility] 3 06:28:19 History of mastectom y 014727120 Active 2018 Not Available [facility] 3 06:28:19 Family history of malignant neoplasm of brain 178654484 Completed 201802/04/2022 Not Available [facility] 3 04:53:30 Acute urinary tract infection 008365563 Completed 202106/02/2022 TOMMY Mason, [facility] 3 14:40:48 Acute urinary tract infection 281517777 Completed TOMMY Mason, [facility] 3 14:40:48 Pain of shoulder region 04893603 Completed Not Available [facility] 3 04:53:31 Acute conjuncti vitis 38345194 Completed Not Available [facility] 3 04:53:31 Upper respirato ry infection 15859425 Completed Not Available [facility] 3 04:53:31 Hyperlipi demia 00905216 Active Not Available [facility] 3 06:28:19 Disorder of bursa of shoulder region 01850321 Completed Not Available [facility] 3 04:53:32 Essential hypertens ion 14345999 Active Not Available [facility] 3 06:28:19 Aortic valve stenosis 98454268 Active Not Available [facility] 3 06:28:19 Diarrhea 38415745 Completed Not Available [facility] 3 04:53:32 Carotid artery stenosis 86709592 Active 2018 Not Available [facility] 3 06:28:20 Urinary tract infectiou s disease 62073808 Completed TOMMY Reina, [facility] 4 16:23:21 Candidias is of vagina 58935902 Completed 202106/02/2022 Not Available [facility] 3 04:53:33 Diabetes mellitus 19276784 Active Not Available [facility] 3 06:28:20 Sleep apnea 34858788 Active Not Available [facility] 3 06:28:20 Urgent desire to urinate 24014612 Completed Not Available [facility] 3 04:53:34 Neck pain 04591033 Completed Not Available [facility] 3 04:53:34 Fatigue 91672151 Completed 202002/04/2022 Not Available [facility] 3 04:53:34 Chronic rhinitis 00265519 Active Not Available [facility] 3 06:28:20 Heart murmur 66135489 Active Not Available [facility] 3 06:28:[address]-assoc iated gastritis 31462376 Active Not Available [facility] 3 06:28:20 Problem Notes None recorded. Procedures Surgical History Date Name Laterality Status Provider Name and Address Organization Details Recorded Time 07/04/20 24 Medicare Wellness CPT Code, subsequent completed JOSE Pacheco [employer] 07/04/2024 12:20:03 07/04/20 24 Advanced Care Planning completed Marleen Recinos RN [employer] [facility] 07/04/2024 12:23:37 06/10/20 24 Ortho - Cortisone Injection completed Paige Lee NP [address] [facility] [facility] [address], [address], [employer] 06/10/2024 11:17:39 03/18/20 22 Date of Last Colonoscopy completed Not Available [facility] 10/19/2022 04:43:18 01/19/20 19 replacement of aortic valve completed Ruth Vasquez CNA [employer] 04/12/2023 15:30:13 03/17/20 17 Incise finger tendon sheath completed Not Available [facility] 10/19/2022 04:43:22 12/18/19 16 Most Recent Bone Density completed Not Available [facility] 10/19/2022 04:43:18 10/20/19 08 endoscopic retrograde pancreatography completed Ruth Vasquez CNA [employer] 04/12/2023 15:32:01 07/21/20 06 reduction of batwing arms completed Ruth Vasquez CNA [employer] 04/12/2023 15:35:33 06/21/20 06 Breast Biopsy completed Ruth Pedro, [employer] [place] [facility] [place] [facility] 04/12/2023 15:36:40 05/21/20 06 biopsy of liver completed Ruth Pedro, [employer] [place] [facility] [place] [facility] 04/12/2023 15:34:13 03/21/20 04 cholecystectomy completed Ruth Pedro, [employer] [place] [facility] [place] [facility] 04/12/2023 15:37:06 08/21/18 79 Eye Surgery completed Ruth Pedro, [employer] [place] [facility] [place] [facility] 04/12/2023 15:37:26 colonoscopy completed Not Available [facility] 10/19/2022 04:43:22 Cardiovascular Surgery completed Ruth Pedro, [employer] [place] [facility] [place] [facility] 04/12/2023 15:33:16 Breast Surgery completed Not Available [facility] 10/19/2022 04:43:22 WET ROASTER Surgery completed Not Available [facility] 10/19/2022 04:43:22 Carpal tunnel surgery completed Not Available [facility] 10/19/2022 04:43:22 Imaging Results Imaging Date Name Status LastModified by Organiz ation Details LastModified Time 07/02/2024 audiogram + tympanogram completed [address] [facility] [address] [place], [address], 07/09/2024 09:13:58 07/03/2024 audiogram + tympanogram completed [facility] [address] [place], [address], 07/03/2024 17:48:13 12/13/2024 gastric emptying study (PROC) active LEYLA Information not available 12/13/2024 17:51:36 Procedure Notes None recorded. Medical Equipment None Reported. Allergies Allergen ID Allergen Name Allergen Category Reaction Reaction Severity Criticality Documentation Date Start Date Code Code System Note Provider Name and Address Organization Details Recorded Time 51894 ciproflox acin medicatio n hallucina tions nausea Not available Not available Not available 12/15/2023 2551 RxNorm Vianca Hall NP [address] [facility], [facility] [address], [place], [address], [place] [facility] 4 16:52:22 8390 tramadol medicatio n itching Not available Not available 10/19/2022 54459 RxNorm Not Available [facility] 3 05:04:51 8391 Levaquin medicatio n hallucina tions nausea Not available Not available Not available 10/19/2022 91433 2 RxNorm Not Available [facility] 3 05:04:51 Medications Name Sig Start Date [...] completed Not Available Not Available Not Available Zando Ultra Test strips USE TO TEST 3 TIMES A DAY 04/12 completed Not Available Not Available Not Available Kenalog 10 mg/mL suspensio n for injection in office 06/17 completed [facility]: [id number] 4-20 Not Available Not Available Not [...] 2024 active Not Available Not Available Not Magalys lable Vitals Date Recorded Body height Body mass index (BMI) Body weight Body temperature Provider Name and Address Organization Details Last Updated DateTime 07/24/2024 157.48 cm 40.4 kg/m2 039267.91 g 97.8 [degF] Effie Mcpherson RN [facility] 07/24/2024 12:29:06 Date Recorded Body height Body mass index (BMI) Body weight Body temperature Provider Name and Address Organization Details Last Updated DateTime 08/27/2024 157.48 cm 38.5 kg/m2 91964.83 g 97.7 [degF] Effie Mcpherson RN [facility] 08/27/2024 10:54:41 Date Recorded Body height Body mass index (BMI) Body weight Body temperature Heart rate Oxygen saturation Oxygen saturation in Arterial blood by Pulse oximetry Systolic blood pressure Diastolic blood pressure Provider Name and Address Organization Details Last Updated DateTime 157.48 cm 37.9 kg/m2 02641.6 2 g 97.2 [degF] 77 /min 98 % 98 % 130 mm[Hg] 58 mm[Hg] EDE Aviles [facility] 16:00:19 Date Recorded Body height Body mass index (BMI) Body weight Body temperature Provider Name and Address Organization Details Last Updated DateTime 10/10/2024 157.48 cm 36.2 kg/m2 74473.29 g 97.7 [degF] Effie Mcpherson RN [facility] 10/10/2024 14:05:17 Date Recorded Body height Provider Name an d Address Organization Details Last Updated DateTime 11/07/2024 157.48 cm Maggie Vincent MD [address], [facility] [address], [place], [address], [facility] 11/07/2024 12:39:10 Social History Question Answer Notes LastModified by Organization Details LastModified Time Tobacco Smoking Status Never Smoker Not Available [facility] 10/19/2022 04:35:32 Do You Have An Advance Directive? No [email or web address] Information not available 07/04/2024 What Is Your Level Of Alcohol Consumption? None MIGRATION.0301 [id number] Information not available 10/19/2022 Are You Blind Or Do You Have Difficulty Seeing? Yes Glasses, [facility] MIGRATION.0301 [id number] Information not available 10/19/2022 Is Blood Transfusion Acceptable In An Emergency? Yes [email or web address] Information not available 07/04/2024 What Is Your Level Of Caffeine Consumption? Occasional MIGRATION.0301 [id number] Information not available 10/19/2022 How Much Tobacco Do You Chew? None MIGRATION.0301 [id number] Information not available 10/19/2022 Are You Currently Employed? No [email or web address] Information not available 07/04/2024 Are You Deaf Or Do You Have Serious Difficulty Hearing? Yes [email or web address] Information not available 07/04/2024 What Type Of Diet Are You Following? REGULAR MIGRATION.0301 [id number] Information not available 10/19/2022 Which Illicit Or Recreational Drugs Have You Used? None MIGRATION.030 [id number] Information not available 10/19/2022 What Is The Highest Grade Or Level Of School You Have Completed Or The Highest Degree You Have Received? [id number] [email or web address] Information not available 07/04/2024 What Is Your Occupation? Retired MIGRATION.030 114112 Information not available 10/19/2022 How Many Days Of Moderate To Strenuous Exercise, Like A Brisk Walk, Did You Do In The Last 7 Days? 0 [email or web address] Information not available 07/04/2024 Have There Been Any Changes To Your Family Or Social Situation? Yes 2 Grandchildren Moved In With Her In 2023 [email or web address] Information not available 07/04/2024 What Is The Fluoride Status Of Your Home? Fluoridated MIGRATION.0301 [id number] Information not available 10/19/2022 Are There Any Guns Present In Your Home? No MIGRATION.0301 [id number] Information not available 10/19/2022 Do You Use Insect Repellent Routinely? No [email or web address] Information not available 07/04/2024 Where Do You Live? [place] MIGRATION.0301 [id number] Information not available 10/19/2022 Are You Following A Low Salt Diet? No [email or web address] Information not available 07/04/2024 Do You Have A Medical Power Of Medical Laboratory Technical Officer? No [email or web address] Information not available 07/04/2024 What Was The Date Of Your Most Recent Tobacco Screening? 07/04/2024 [email or web address] Information not available 07/04/2024 How Many Children Do You Have? 0 [email or web address] Information not available 07/04/2024 Do You Have Any Pets? Yes [email or web address] Information not available 07/04/2024 What Is Your Relationship Status? Single [email or web address] Information not available 07/04/2024 Do You Use Your Seat Belt Or Car Seat Routinely? Yes [email or web address] Information not available 07/04/2024 Are You Sexually Active? No [email or web address] Information not available 07/04/2024 Do You Have Smoke And Carbon Monoxide Detectors In Your Home? Yes MIGRATION.0301 [id number] Information not available 10/19/2022 Are You Passively Exposed To Smoke? No [email or web address] Information not available 07/04/2024 Are There Any Smokers In Your House? No [email or web address] Information not available 07/04/2024 What Types Of Sporting Activities Do You Participate In? None [email or web address] Information not available 07/04/2024 Do You Feel Stressed (tense, Restless, Nervous, Or Anxious, Or Unable To Sleep At Night)? [id number] MIGRATION.0301 [id number] Information not available 10/19/2022 Do You Use Any Illicit Or Recreational Drugs? No [email or web address] Information not available 07/04/2024 Do You Use Sunscreen Routinely? No MIGRATION.0301 [id number] Information not available 10/19/2022 Has Tobacco Cessation Counseling Been Provided? No [email or web address] Information not available 07/04/2024 Have You Recently Traveled Abroad? No [email or web address] Information not available 07/04/2024 Do You Have Any Dietary Restrictions? Yes Should Be On Low Sugar/carb Diet [email or web address] Information not available 07/04/2024 Sex: Female Functional Status Question Answer Note LastModified by Organizat ion Details LastModified Time Do you have difficulty walking or climbing stairs? No MIGRATION.[id number] 026 Information not available 10/19/2022 Do you have transportation difficulties? No [email or web address] Information not available 07/04/2024 Are you able to walk? YESWOREST [email or web address] Information not available 07/04/2024 Do you have difficulty doing errands alone? No MIGRATION.8864870 026 Information not available 10/19/2022 Are you able to care for yourself? Yes [email or web address] Information n ot available 07/04/2024 Do you have difficulty dressing or bathing? No MIGRATION.[id number] 026 Information not available 10/19/2022 What is your exercise level? None [email or web address] Information not available 07/04/2024 Mental Status Question Answer Note LastModified by Organization D etails LastModified Time Do you have difficulty concentrating, remembering or making decisions? Yes [email or web address] Information no t available 07/04/2024 Family History Relationship Description Onset Age of this Age Resolved Age Notes LastModified by Organization Details LastModified Time Mother Malignant neoplasm of lung MIGRATION.484 [id number] Not available 10/19/2022 04:43:24 Mother Malignant tumor of breast MIGRATION.230 [id number] Not available 10/19/2022 04:43:25 Father Heart disease MIGRATION.758 [id number] Not available 10/19/2022 04:43:25 Sister Complication of anesthesia [email or web address] Not available 04/12 15:27:27 Mother Family history of malignant neoplasm [email or web address] Not available 2022 15:27:45 Medical History Condition Response ARTHRITIS Y USE OF BLOOD THINNERS Y DIABETES, TYPE Y BLOOD DISEASES Y HYPERTENSION Y ANEMIA/BLOOD DISORDER Y Gynecological History Statement/Question Response Date of Last Pap Date of Last Mammogram Date of Last Colonoscopy 03/18/2022 Most Recent Bone Density 12/18/2015 Obstetrics History GPAL:G 0 P 0 0 0 0 Immunizations Vaccine Type Date Status Note Provider Nam e and Address Organization Details Recorded Time Influenza, split virus, trivalent, PF 3 completed NIRMAL Allen, [employer] [facility] 10/24/2023 10:56:43 Influenza, high-dose, quadrivalent, PF 1 completed Not Available [facility] 04/06/2023 03:45:08 SARS-COV-2 (COVID-19) vaccine, UNSPECIFIED 1 completed NIRMAL Allen, [employer] [facility] 10/24/2023 10:56:43 SARS-COV-2 (COVID-19) vaccine, UNSPECIFIED 1 completed NIRMAL Allen, [employer] 10/24/2023 10:56:43 SARS-COV-2 (COVID-19) vaccine, UNSPECIFIED 1 completed Not Available [facility] 04/06/2023 03:45:08 Influenza, split virus, quadrivalent, preservative 0 completed Not Available [facility] 04/06/2023 03:45:08 Tdap 1 completed Not Available [facility] 04/06/2023 03:45:08 pneumococcal polysaccharide PPV23 1 completed Not Available [facility] 04/06/2023 03:45:08 pneumococcal polysaccharide PPV23 5 completed Not Available [facility] 04/06/2023 03:45:08 Influenza, split virus, quadrivalent, PF 2 completed Not Available [facility] 04/06/2023 03:45:08 Influenza, split virus, quadrivalent, PF 9 completed Not Available [facility] 04/06/2023 03:45:08 Td (adult), 5 Lf tetanus toxoid, preservative free, adsorbed 9 completed Not Available [facility] 04/06/2023 03:45:08 Influenza, split virus, quadrivalent, PF 8 completed Francheska Hinojosa CMA null, [employer] 10/24/2023 10:56:43 Pneumococcal conjugate PCV 13 6 completed Not Available [facility] 04/06/2023 03:45:08 Influenza, split virus, quadrivalent, preservative 6 completed Not Available [facility] 04/06/2023 03:45:08 Influenza, split virus, quadrivalent, preservative 5 completed Not Available [facility] 04/06/2023 03:45:08 Influenza, split virus, trivalent, preservative 4 completed Francheska Hinojosa CMA null, [employer] 10/24/2023 10:56:43 Influenza, split virus, quadrivalent, preservative 7 completed Not Available [facility] 04/06/2023 03:45:08 pneumococcal polysaccharide PPV23 4 completed Anabella Daniels MD [address] [address], [place], [address], [facility] 03/04/2024 13:27:44 Past Encounters Encounter ID Performer Location Encounter Start Date Encounter Closed Date Diagnosis/Indication Diagnosis SNOMED-CT Code Diagnosis ICD10 Code Diagnosis Note [id number] [facility] [address] [facility] [place] [address] 02/05/2021 00:00:00 02/05/2021 13:17:42 [id number] [facility] [address] [place] [address]. [place] [address] 06/04/2021 00:00:00 06/04/2021 10:30:21 [id number] [facility] [address] [place] [address] 08/16/2021 00:00:00 08/16/2021 14:35:44 [id number] [facility] [address] [place] [address]. [place] [address] 10/06/2021 00:00:00 10/06/2021 11:25:17 [id number] [facility] [id number] [facility] [place] [address] 02/07/2022 00:00:00 02/07/2022 11:27:43 [id number] [facility] [address] [place] [address] 06/06/2022 00:00:00 06/06/2022 13:04:24 [id number] [facility] [address] [place] [address] 08/24/2022 00:00:00 08/24/2022 15:12:50 [id number] [facility] [address] [address] 09/05/2022 00:00:00 09/05/2022 11:28:14 [id number] Anabella Daniels MD [facility] [address] [place] [address] 01/05/2023 11:54:05 01/05/2023 12:51:34 Diabetes mellitus 30149844 E13.42 under control, gets eye exam, seeing endo Diabetic p eripheral neuropathy 735777710 E11.40 not on gabapentin any more due to side effects Asthma 388213344 J45.90 9 under control Essential hypertension 76877472 I10 under control Carotid ar kecia stenosis 68480566 I65.29 on asa, dopplers 11/09 Dysphagia 26308261 R13.1 0 not getting worse Depressive disorder 3548 9007 F32.9 under control, seeing psych Gastroesop hageal reflux disease 537025981 K21.9 under control with meds Heart murmur 54298722 R0 1.1 gets echo Insomnia 654090697 G47.0 0 better with meds Obesity 469997447 E66.9 advised to lose Osteoarthritis 113415113 M19.90 otc Sleep apnea 68724447 G47 .30 on cpap Vitamin D deficiency 347 62821 E55.9 otc Chronic rhinitis 3576006 6 J31.0 on montelukas t Adult heal th examination 814063127 Z00.00 Mammogram- both breast removedDex a 2016, wants to wait due covidCofarhann oscopy 2016PCV 13 [id number] OV ID- 09/22/20, 11/09/20, 05/06/21 Postmenopausal state 764 23928 Z78.0 Urinary symptoms 7016591 08 R39.9 [id number] JUAIN Kwon [facility] [address] [place] [address] 04/12/2023 14:58:45 04/12/2023 16:02:59 Pain of left hip joint 2309528243 09748 M25.196 [id number] Anabella Daniels MD [facility] [address] [facility] [place] [address] 05/16/2023 10:31:13 05/16/2023 11:16:18 Diabetes mellitus 74391089 E13.42 under control, gets eye exam, seeing endo Diabetic p eripheral neuropathy 069590747 E11.40 not on gabapentin any more due to side effects Asthma 151910685 J45.90 9 advised to use symbicort daily Essential hypertension 49733020 I10 under control Carotid ar kecia stenosis 35586387 I65.29 on asa, gets dopplers at cardiology Dysphagia 90620187 R13.1 0 stable Depressive disorder 3548 9007 F32.9 under control, seeing psych Gastroesop hageal reflux disease 108567827 K21.9 under control with meds Heart murmur 23130340 R0 1.1 gets echo Insomnia 988377112 G47.0 0 better with meds Obesity 257021315 E66.9 advised to lose Osteoarthritis 539911869 M19.90 otc Sleep apnea 02495502 G47 .30 on cpap Vitamin D deficiency 347 22805 E55.9 otc Chronic rhinitis 9767556 6 J31.0 on montelukas t Adult heal th examination 402221406 Z00.00 Mammogram- both breast removedDex a 2016, wants to waitColono scopy 2016V 13 [id number] OV ID- 09/22/20, 11/09/20, 05/06/21 Postmenopausal state 764 41966 Z78.0 [id number] Anabella Daniels MD [facility] [address] [facility] [place] [address] 10/24/2023 10:44:10 10/24/2023 12:01:20 Diabetes mellitus 44663118 E13.42 under control, gets eye exam, Diabetic p eripheral neuropathy 995730607 E11.40 not on gabapentin any more due to side effects Asthma 931644927 J45.90 9 advised to use symbicort daily Essential hypertension 90402824 I10 under control Carotid ar kecia stenosis 68188288 I65.29 on asa, gets dopplers at cardiology Dysphagia 05491238 R13.1 0 stable Depressive disorder 3548 9007 F32.9 under control, seeing psych Gastroesop hageal reflux disease 629692941 K21.9 under control with meds Insomnia 554239597 G47.0 0 better with meds Obesity 448093501 E66.9 advised to lose Osteoarthritis 489678532 M19.90 otc Sleep apnea 63481258 G47 .30 on cpap Vitamin D deficiency 347 90469 E55.9 otc Chronic rhinitis 3871664 6 J31.0 on montelukas t Adult heal th examination 912878261 Z00.00 Mammogram- both breast removedDex a 2016, wants to waitColono scopy 2016PCV 13 [id number] 2004FLU- OV ID- 09/22/20, 11/09/20, 05/06/21 Postmenopausal state 764 30012 Z78.0 Pain of left wrist 25046 91702 45287 M25.532 use wrist support [id number] JUANI Tariq [facility] [address] [place] [address] 11/30/2023 08:49:25 11/30/2023 09:12:53 Pain of left wrist 7030496722 59902 M25.532 Tenosynovi tis of left radial styloid 3868944053 4726227 M65.4 [id number] JUANI Tariq [facility] [address] [place] [address] 12/28/2023 08:57:50 12/28/2023 09:31:17 Tenosynovitis of left radial styloid 6132209343 5435335 M65.4 Pain of left hand 347113 3688 99726 M79.127 [id number] Anabella Daniels MD [facility] [address] [facility] [place] [address] 03/04/2024 09:47:48 03/04/2024 11:12:54 Diabetes mellitus 80148121 E13.42 under control, Diabetic p eripheral neuropathy 455243316 E11.40 not on gabapentin any more due to side effects Asthma 281548439 J45.90 9 alb inhaler Essential hypertension 63417467 I10 under control Carotid ar kecia stenosis 59116128 I65.29 on asa, gets dopplers at cardiology Dysphagia 20454850 R13.1 0 no more symptoms Depressive disorder 3548 9007 F32.9 under control, seeing psych Gastroesop hageal reflux disease 303163356 K21.9 under control with meds Insomnia 925226286 G47.0 0 better with meds Obesity 920493327 E66.9 advised to lose Osteoarthritis 090908330 M19.90 otc Sleep apnea 28149731 G47 .30 on cpap Vitamin D deficiency 347 84172 E55.9 otc Chronic rhinitis 0116132 6 J31.0 on montelukas t Adult heal th examination 431842463 Z00.00 Mammogram- both breast removedDex a 11/11Colono scopy 2016PCV 13 [id number] 2004,FLU- OV ID- 09/22/20, 11/09/20, 05/06/21 Anemia 947023701 D64.9 Aortic valve stenosis 60 438367 I35.0 s/p valve replacemen t Hyperlipidemia 67278905 E78.5 Non-alcoho lic fatty liver 623879907 K76.0 advised to lose weight Osteopenia 807382232 M85 .80 on otc Infection of skin 598600 000 L08.9 Coronary arteriosclerosis 28250557 I25.10 s/p CABG Administra tion of pneumococcal vaccine 75674544 Z23 [id number] DIAZ Morrell [facility] [address] [place] [address] 06/06/2024 14:47:52 06/06/2024 15:33:04 Dysfunction of bilateral eustachian tubes 8160579309 088702 H69.93 Sensorineu ral hearing loss 88854103 H90.5 [id number] Paige Lee NP [facility] [address] [place] [address] 06/10/2024 10:19:09 06/10/2024 10:41:38 Tenosynovitis of left radial styloid 6800761383 1575201 M65.4 [id number] Maggie [facility] MD [facility] [address] [place] [address] 06/20/2024 14:38:43 06/20/2024 15:26:57 Dysfunction of bilateral eustachian tubes 4453434456 520024 H69.93 [id number] Anabella Daniels MD [facility] [address] [place] [address] 07/04/2024 09:46:50 07/04/2024 10:59:22 Diabetes mellitus 29963228 E13.42 under control, Diabetic p eripheral neuropathy 814277652 E11.40 not on gabapentin any more due to side effects Asthma 881358933 J45.90 9 alb inhaler prn, under control Essential hypertension 59492977 I10 under control Carotid ar kecia stenosis 38475016 I65.29 on asa, gets dopplers at cardiology Dysphagia 59168290 R13.1 0 no more symptoms Depressive disorder 3548 9007 F32.9 under control, seeing psych Gastroesop hageal reflux disease 057784962 K21.9 under control with meds Insomnia 257437927 G47.0 0 better with meds Obesity 302373691 E66.9 advised to lose Osteoarthritis 884417851 M19.90 otc Sleep apnea 31707940 G47 .30 on cpap, compliant Vitamin D deficiency 347 49404 E55.9 otc Chronic rhinitis 6444781 6 J31.0 on montelukas t Adult heal th examination 636958986 Z00.00 Mammogram- both breast removedDex a 11/11Colono scopy 2016PCV 13 [id number] 2004,FLU- OV ID- 09/22/20, 11/09/20, 05/06/21 Anemia 392450895 D64.9 stable Aortic valve stenosis 60 133868 I35.0 s/p valve replacemen t Hyperlipidemia 83661101 E78.5 stable Non-alcoho lic fatty liver 142134530 K76.0 advised to lose weight Osteopenia 703599168 M85 .80 on otc Coronary arteriosclerosis 40750330 I25.10 s/p CABG Screening for disorder 288248165 Z13.9 [id number] Maggie Vincent MD [facility] [address] [place] [address] 07/24/2024 12:04:01 08/15/2024 10:05:16 Dysfunction of bilateral eustachian tubes 8648809078 553567 H69.93 Dysfunctio n of eustachian tube 49921796 H69.[id number] [facility] [address] [place] [address] 08/27/2024 10:45:03 08/27/2024 11:18:24 Postoperative visit 583545046 Z48.89 08/19/2024 postoperat celestino from a bilateral myringotom y with bilateral Eustachian tube balloon dilation. Advised use of Flonase nasal spray 1-2 squirts per nostril daily. She notes that she does have Flonase at home. Follow-up as needed. [id number] Marcelina Ye [facility] [address] [facility] [place] [address] 09/11/2024 15:51:00 09/11/2024 16:29:59 Nausea and vomiting 70535638 R11.2 needs EGD [id number] Maggie Vincent MD [facility] [address] [place] [address] 10/10/2024 13:58:42 10/15/2024 12:17:37 Dysfunction of bilateral eustachian tubes 9547458037 933067 H69.[id number] [facility] [address] [place] [address] 11/07/2024 12:08:05 11/13/2024 15:43:31 Dysfunction of bilateral eustachian tubes 9705436186 132287 H69.93 Health Concerns Section Related Observation LastModified by Organization Detai ls LastModified Time None Recorded Concern Status LastModified by Organization Details LastModified Time None Recorded Advance Directives Directive N: Payers Encounter Date Sequence Insurance Name Policy Number Policy Boo Covered Member ID Boo Member ID Guarantor Name 07/24/2024 1 [place] Sanita A Divietro [id number] Sanita A Divietro 07/24/2024 2 [employer] [place] (MEDICARE SUPPLEMENT) PLAN F Sanita A Divietro [id number] Sanita A Divietro 08/27/2024 1 [place] Sanita A Divietro [id number] Sanita A Divietro 08/27/2024 2 [employer] [place] (MEDICARE SUPPLE[place]) PLAN F Sanita A Divietro [id number] Sanita A Divietro 09/11/2024 1 [place] Sanita A Divietro [id number] Sanita A Divietro 09/11/2024 2 [employer] [place] (MEDICARE SUPPLEMENT) PLAN F Sanita A Divietro [id number] Sanita A Divietro 10/10/2024 1 [place] Sanita A Divietro [id number] Sanita A Divietro 10/10/2024 2 [employer] [place] (MEDICARE [place]PPLE[place]) PLAN F Sanita A Divietro [id number] Sanita A Divietro 11/07/2024 1 [place] Sanita A Divietro [id number] Sanita A Divietro 11/07/2024 2 [employer] [place] (MEDICARE SUPPLEMENT) PLAN F Sanita A Divietro [id number] Sanita A Divietro Notes Date Note Type Note Provider Name and Address Organization Details Recorded Time 07/24/2024 text/html this patient had an audiogram which demonstrated a type C audiogram on the right and a type B on the left. There is mixed loss bilaterally Maggie Vincent MD [address] [place] [address], [address] [address], [place], [address], [facility] 07/24/2024 12:59:24 08/27/2024 text/html This patient presents to the office for a postoperative visit from a bilateral myringotomy with tubes and bilateral Eustachian tube balloon dilation that was completed on 08/19/2024. She does report some continued right ear congestion and diminished hearing. She denies any other complaints. Effie Ladd, COTTON PROGRAM TECHNICIAN [address] [employer], [place], [address], [employer] 08/27/2024 11:17:48 09/11/2024 text/html Pt is here today for feeling sick all the time.She has been vomiting a lot lately, can not eat meat.She has lost 26 lbs since last May.Gets abd pain due to dry heavesshe is on trulicity for long time she had EGD and manometry in 2019, wa snl Anabella Daniels MD [address], [employer], [place], [address], [employer] 09/11/2024 16:27:34 10/10/2024 text/html this patient had PE tubes placed last year but reports severe hearing loss since then. She reports that she is unable to tolerate her hearing loss at this point. Maggie Vincent MD [address], [employer], [place], [address], [employer] 10/10/2024 14:21:52 11/07/2024 text/html this patient had her tubes removed reports that her hearing is unchanged Maggie Vincent MD [address], [employer], [place], [address], [employer] 11/07/2024 12:41:25 OBGyn Episode No OBEpisode recorded.
== END 2024-12-16 08:49 | disposition home or self-care (01) ==
PROVIDERS: PCP Internal Medicine; Visit Provider Internal Medicine Gastroenterology
DX: R11.2 Nausea with vomiting, unspecified (principal); R63.4 Abnormal weight loss
CPT/HCPCS: 76700

== ENCOUNTER 2024-12-26 00:39 | Day surgery (SDC) | payer MEDICARE, OTHER, SELFPAY ==
--- OUTSIDE RECORDS SUMMARY | 2024-12-26 00:42 | XMS_ITS | Clinical Summary ---
Author Organization [facility] [employer] Address [address] [facility] [place] [address] Care Team Providers Care Electric Power Superintendent Name Role Phone Maurice Daniels MD Primary Care Provider [phone] Source Comments [facility]ates and Associated Physician Practices is amultiple site organization consisting of ambulatory clinics and hospital sitesin [place], [place], [place] and [place]. This disclosure is being madepursuant to the Care Everywhere program and may not contain all information available regarding this patient. 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 Gender Identity Not on file Sexual Orientation Not on file Last Filed Vital Signs Vital Sign Reading Time Taken Comments Blood Pressure - - Pulse - - Temperature - - Respiratory Rate - - Oxygen Saturation - - Inhaled Oxygen Concentration - - Weight 103.4 kg (228 lb) 08/26/2019 8:04 AM WAREHOUSE MANAGER Height 157.5 cm (5' 2 ) 08/26/2019 8:04 AM WAREHOUSE MANAGER Body Mass Index 41.7 08/26/2019 8:04 AM WAREHOUSE MANAGER Plan of Treatment Health Maintenance Due Date [...] patient's age to complete this topic Insurance [facility] [place] [address] MEDICARE [facility] SELF PAY NO INSURANCE Member Subscriber Plan / Payer (Ef fective for All Dates) Name:Loan Francisco Member ID:Not on file Relation to Subscriber:Not on file Name:LOAN FRANCISCO Subscriber ID:Not on file (Home) Address: [address] [place] [id number] Payer ID:Not on file Group ID:Not on file Type:Self Pay Address: [place], [place] MEDICARE Care Teams Electric Power Superintendent Relationship Specialty Start Date End Date Maurice Daniels MD [address] [place] [address] PCP - General Internal Medicine 08/01/19
--- OUTSIDE RECORDS SUMMARY | 2024-12-26 00:42 | XMS_ITS | CONTINUITY OF CARE DOCUMENT ---
Author Name amara maloney Address Unknown Organization [facility] Address [address] 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 Hypertension active Kvng Valverde MD Cardiology examination active Silverio Obando Memory impairment active Silverio Obando ENCOUNTERS Date Type Provider Location Encounter Diag nosis - In-person encounter Office Visit Kvng Valverde MD [facility] Carotid artery disease, 50-69% LICA,<50% SHA, 09/2024 - In-person encounter Office Visit Kvng Valverde MD [facility] Fatigue--echo ef nl, ardiology examinationMemory impairment - In-person encounter Office Visit Kvng Valverde MD [facility] - In-person encounter Office Visit Kvng Valverde MD [facility] - In-person encounter Office Visit Kvng Valverde MD [facility] - In-person encounter Office Visit Kvng Valverde MD [facility] AORTIC STENOSIS, s/p 21mm C.E AVR 02/06, single vsl CABG w/SVG to RCA 01/18/19 CNECarotid artery disease, 50-69% LICA,<50% SHA, 09/2024Fatigue--echo ef nl, 05/2024Hypertension - In-person encounter Office Visit Kvng Valvrede MD [facility] - In-person encounter Office Visit Kvng Valverde MD [facility] - In-person encounter Office Visit Kvng Valverde MD [facility] Fatigue--echo ef nl, 05/2024 - In-person encounter Office Visit Toney Pulido MD [facility] Leg cramps, bilateral - In-person encounter Office Visit Kvng Valverde MD [facility] Venous insufficiency - In-person encounter Office Visit Kvng Valverde MD [facility] Elevated blood pressure - In-person encounter Office Visit Kvng Valverde MD [facility] - In-person encounter Office Visit Kvng Valverde MD [facility] Cough - In-person encounter Office Visit Kvng Valverde MD [facility] - In-person encounter Office Visit Kvng Valverde MD [facility] Carotid artery disease, 50-69% LICA,<50% SHA, 09/2024Fatigue--echo ef nl, hest discomfort--normal stress nuc 10/2021 - In-person encounter Office Visit Kvng Valverde MD [facility] Fatigue--echo ef nl, 05/2024Syncope - In-person encounter Office Visit Kvng Valverde MD [facility] AORTIC STENOSIS, s/p 21mm C.E AVR 02/06, single vsl CABG w/SVG to RCA 01/18/19 CNECAD s/p CABG single vsl SVG-RCA - In-person encounter Office Visit Kvng Valverde MD [facility] Carotid artery disease, 50-69% LICA,<50% SHA, 09/2024 - In-person encounter Office Visit Kvng Valverde MD [facility] - In-person encounter Office Visit Kvng Valverde MD [facility] - In-person encounter Office Visit Kvng Valverde MD [facility] - In-person encounter Office Visit Kvng Valverde MD [facility] GERD - In-person encounter Office Visit Kvng Valverde MD [facility] - In-person encounter Office Visit Kvng Valverde MD [facility] AORTIC STENOSIS, s/p 21mm C.E AVR 02/06, single vsl CABG w/SVG to RCA 01/18/19 CNEr/o CAD;neg cath 06, neg nuc 13Chest pain - In-person encounter Office Visit Kvng Valverde MD [facility] - In-person encounter Office Visit Kvng Valverde MD [facility] AORTIC STENOSIS, s/p 21mm C.E AVR 02/06, single vsl CABG w/SVG to RCA 01/18/19 CNE - In-person encounter Office Visit Kvng Valverde MD [facility] - In-person encounter Office Visit Kvng Valverde MD [facility] Back pain, lower - In-person encounter Office Visit Kvng Valverde MD [facility] - In-person encounter Office Visit Kvng Valverde MD [facility] Edema - In-person encounter Office Visit Kvng Valverde MD [facility] - In-person encounter Office Visit Kvng Valverde MD [facility] - In-person encounter Office Visit Kvng Valverde MD [facility] - In-person encounter Office Visit Kvng Valverde MD [facility] Microvascular angina;on ecpFamily History of Hypertension: - In-person encounter Office Visit Kvng Valverde MD [facility] AORTIC STENOSIS, s/p 21mm C.E AVR 02/06, single vsl CABG w/SVG to RCA 01/18/19 CNE - In-person encounter Office Visit Kvng Valverde MD [facility] - In-person encounter Office Visit Kvng Valverde MD [facility] - In-person encounter Office Visit Kvng Valverde MD [facility] - In-person encounter Office Visit Kvng Valverde MD [facility] - In-person encounter Office Visit Kvng Valverde MD [facility] AORTIC STENOSIS, s/p 21mm C.E AVR 02/06, single vsl CABG w/SVG to RCA 01/18/19 CNE - In-person encounter Office Visit Kvng Valverde MD [facility] Obesity; - In-person encounter Office Visit Kvng Valverde MD [facility] - In-person encounter Office Visit Kvng Valverde MD [facility] Obesity; - In-person encounter Office Visit Mook Green MD [facility] HTN-06/02 ECHO MILD EF 60ASTHMA;per pulmna mdDYSLIPIDEMIA;on rxCHEST PAIN-07/26 CATH NLCHEST PAIN-11/27 NUC NEGCAD-06/02 CAROTID NEGAORTIC STENOSIS, s/p 21mm C.E AVR 02/06, single vsl CABG w/SVG to RCA 01/18/19 CNEDIABETES MELLITUS, TYPE II, UNCONTROLLEDCarotid artery disease, 50-69% LICA,<50% SHA, 09/2024Obesity;Sleep apnea;on cpap - In-person encounter Office Visit Kvng Valverde MD [facility] - In-person encounter Office Visit Kvng Valverde MD [facility] AORTIC STENOSIS, s/p 21mm C.E AVR 02/06, single vsl CABG w/SVG to RCA 01/18/19 CNE - In-person encounter Office Visit Kvng Valverde MD [facility] - In-person encounter Office Visit Kvng Valverde MD [facility] - In-person encounter Office Visit Kvng Valverde MD [facility] - In-person encounter Office Visit Kvng Valverde MD [facility] VITAL SIGNS Date Observation Value [...] blood pressure, diastolic 81 mm[Hg] [address] [facility] blood pressure, systolic 135 mm[Hg] Esther hernandez [facility] blood pressure, cuff size regular [address] [facility] oxygen saturation, oximetry 99 % Tarah [facility] pulse rate 78 /min Tarah [facility] Body Mass Index (Ratio) 41.15 kg/m2 Champyl garret [facility] weight in kilograms E&M 102.06 kg Champyl garret [facility] weight E&M 225 [lb_av] Tarah [facility] height E&M 62 [in_i] Tarah [facility] height in centimeters E&M 157.[address] [facility] Body Mass Index (Ratio) 42.79 kg/m2 Antwan [...] Ja rret blood pressure, systolic 143 mm[Hg] [facility] pulse rate 64 /min [place] oxygen saturation, oximetry 95 % [place] respiratory rate E&M 16 /min [place] weight E&M 227 [lb_av] [place] height E&M 62 [in_i] [facility] y Body Mass Index (Ratio) 40.60 kg/m2 Antwan Valverde MD pulse rate 78 /min [facility] blood pressure, cuff size regular [facility] blood pressure, diastolic 64 mm[Hg] [facility] blood pressure, systolic 118 mm[Hg] [facility] oxygen saturation, oximetry 97 % [facility] respiratory rate E&M 16 /min [facility] weight E&M 222 [lb_av] [facility] height E&M 62 [in_i] [facility] Body Mass Index (Ratio) 39.50 kg/m2 Antwan Valverde MD blood pressure, cuff size regular [facility] blood pressure, diastolic 66 mm[Hg] [facility] blood pressure, systolic 134 mm[Hg] [facility] pulse rate 72 /min [facility] oxygen saturation, oximetry 96 % [facility] respiratory rate E&M 12 /min [facility] weight E&M 216 [lb_av] [place] height E&M 62 [in_i] [facility] y Body Mass Index (Ratio) [...] Body Mass Index (Ratio) 39.69 kg/m2 Aneudy Mckeno blood pressure, diastolic 69 mm[Hg] Keo Zarate [...] mae Reed blood pressure, systolic 152 mm[Hg] [facility] marleny Reed oxygen saturation, oximetry 98 [...] ofelia Feldman blood pressure, systolic 132 mm[Hg] [facility] lissette Feldman pulse rate 83 /min Liliana caldwell oxygen saturation, oximetry 97 % Liliana Feldman weight E&M 218 [lb_av] Liliana Catalan john respiratory rate E&M 16 /min Tiffanie evans [place] blood pressure, cuff size large Keyla gilbert [place] height E&M 62 [in_i] Liliana Catalan john [...] Valverde MD respiratory rate E&M 16 /min [facility] blood pressure, diastolic 74 mm[Hg] [facility], systolic 124 mm[Hg] Ton [facility] oxygen saturation, oximetry 98 % [facility] pulse rate 79 /min [facility] weight E&M 233 [lb_av] [facility] height E&M 62 [in_i] [facility] Body Mass Index (Ratio) 40.97 [...] mm[Hg] Roque Awanam pulse rate 84 /min Delfino Dixon oxygen saturation, oximetry 98 % Delfino Dixon respiratory rate E&M 16 /min Delfino Dixon weight E&M 224 [lb_av] Shohola Dixon height E&M 62 [in_i] Delfino Dixon Body Mass Index (Ratio) 43.53 kg/m2 Antwan Valverde MD blood pressure, diastolic 80 mm[Hg] lUisses jones ORonaldo blood pressure, systolic 142 mm[Hg] Carrie smith ORonaldo oxygen saturation, oximetry 97 % Jeanine ORonaldo respiratory rate E&M 16 /min Jeanine ORonaldo pulse rate 81 /min Jeanine ORonaldo weight E&M 238 [lb_av] Jeanine ORonaldo height E&M 62 [in_i] [facility] ORonaldo Body Mass Index (Ratio) 43.53 kg/m2 Antwan Valverde MD blood pressure, cuff size large Ke rri [facility]entral [facility] blood pressure, diastolic 70 mm[Hg] Ke rri Junior blood pressure, systolic 132 mm[Hg] [place] oxygen saturation, oximetry 98 % Shanice Pacheco respiratory rate E&M 18 /min Shanice live pulse rate 96 /min Shanice Gonzales [facility] weight E&M 238 [lb_av] Shanice [...] blood pressure, diastolic 80 mm[Hg] Da hussein [place] blood pressure, systolic 128 mm[Hg] Dac ia Shen oxygen saturation, oximetry 94 % Amarilis [place] respiratory rate E&M 16 /min Amarilis V oss pulse rate 75 /min Amarilis [place] weight E&M 244 [lb_av] Amarilis Shen height E&M 62 [in_i] Amarilis Shen Body Mass Index (Ratio) 45.17 kg/m2 Antwan Valverde MD blood pressure, diastolic 76 mm[Hg] Da hussein Shen blood pressure, systolic 138 mm[Hg] Dac ia Shen oxygen saturation, oximetry 96 % Amarilis [place] respiratory rate E&M 20 /min Amarilis V oss pulse rate 71 /min Amarilis Shen weight E&M 247 [lb_av] Amarilis Shen height E&M 62 [in_i] Amarilis [place] Body Mass Index (Ratio) 43.93 kg/m2 Antwan Valverde MD pulse rate #2 56 [facility] blood pressure, koehler tolic, second observation 79 mm[Hg] [facility] blood pressure, syst olic, second observation 131 mm[Hg] [facility], [facility] 98 % [facility] 56 /min [facility], diastolic 79 mm[Hg] Vi ctoria [...] [in_i] Brandan jc pulse rate #2 59 [facility] blood pressure, koehler tolic, second observation 78 mm[Hg] [facility], syst olic, second observation 119 mm[Hg] [facility], [facility]xim[facility] 98 % Rani [facility] pulse rate 59 /min Rani blood pressure, diastolic 78 mm[Hg] Vi [facility] Ted blood pressure, systolic 119 mm[Hg] Merritt cari Tebid pulse rate #2 65 [facility] blood pressure, koehler tolic, second observation 76 mm[Hg] Rani Tebid blood pressure, syst olic, second observation 132 mm[Hg] Rani Tebid oxygen saturation, oximetry 98 % Rani Tebi pulse rate 65 /min Rani Tebid blood pressure, diastolic 76 mm[Hg] Vi [facility] Tebid blood pressure, systolic 132 [...] % Rani d pulse rate 61 /min [place] d blood pressure, diastolic 78 mm[Hg] Vi ctoria Tebid blood pressure, systolic 133 mm[Hg] Merritt cari Tebid pulse rate #2 65 [place] d blood pressure, koehler tolic, second observation 73 mm[Hg] Rani d blood pressure, syst olic, second observation 126 mm[Hg] Rani d oxygen saturation, oximetry 98 % [place] pulse rate 65 /min [place] blood pressure, diastolic 73 mm[Hg] Vi ctoria Ted blood pressure, systolic 126 mm[Hg] Merritt cari Ted pulse rate #2 63 [place] blood pressure, koehler tolic, second observation 76 mm[Hg] [place] blood pressure, syst olic, second observation 135 mm[Hg] Rani oxygen saturation, oximetry 98 % Rani pulse rate 63 /min Hume blood pressure, diastolic 76 mm[Hg] Vi ctoria Ted blood pressure, systolic 135 mm[Hg] Merritt crai Tebid pulse rate #2 71 [place] blood pressure, koehler tolic, second observation 76 mm[Hg] [place] d blood pressure, syst olic, second observation 125 mm[Hg] Rani d oxygen saturation, oximetry 98 % Rani pulse rate 71 /min Hume blood pressure, diastolic 76 mm[Hg] Vi ctoria Tebid blood pressure, systolic 125 mm[Hg] Merritt andersonia Tebid pulse rate #2 68 [place] blood pressure, koehler tolic, second observation 73 mm[Hg] Rani blood pressure, syst olic, second observation 125 mm[Hg] Rani oxygen saturation, oximetry 98 % Rani pulse rate 68 /min Hume blood pressure, diastolic 73 mm[Hg] Vi aloria blood pressure, systolic 125 mm[Hg] Merritt cari d pulse rate #2 69 [place] blood pressure, koehler tolic, second observation 78 mm[Hg] Rani blood pressure, syst olic, second observation 129 mm[Hg] Rani oxygen saturation, oximetry 98 % Rani pulse rate 69 /min Hume blood pressure, diastolic 78 mm[Hg] Vi [facility] d blood pressure, systolic 129 mm[Hg] Merritt cari d pulse rate #2 72 [place] blood pressure, koehler tolic, second observation 80 mm[Hg] Rani blood pressure, syst olic, second observation 141 mm[Hg] Rani oxygen saturation, oximetry 98 % Rani pulse rate 72 /min [place] blood pressure, diastolic 80 mm[Hg] Vi [facility] d blood pressure, systolic 141 mm[Hg] Merritt cari d pulse rate #2 58 [place] blood pressure, koehler tolic, second observation 70 mm[Hg] Rani blood pressure, syst olic, second observation 143 mm[Hg] [place] oxygen saturation, oximetry 98 % [place] pulse rate 58 /min [facility] blood pressure, diastolic 70 mm[Hg] Vi aloria d blood pressure, systolic 143 mm[Hg] Merritt andersonia Tebid pulse rate #2 73 [facility] blood pressure, koehler tolic, second observation 74 mm[Hg] [facility] blood pressure, syst olic, second observation 119 mm[Hg] [facility] oxygen saturation, oximetry 98 % [facility] pulse rate 73 /min [facility] blood pressure, diastolic 74 mm[Hg] Vi aloria Ted blood pressure, systolic 119 mm[Hg] [facility]2 69 [facility] blood pressure, koehler tolic, second observation 83 mm[Hg] [facility] blood pressure, syst olic, second observation 139 mm[Hg] [facility] oxygen saturation, oximetry 98 % [facility] pulse rate 69 /min [facility] blood pressure, diastolic 83 mm[Hg] [facility], [facility] 139 mm[Hg] [facility] #2 64 [place] blood pressure, koehler tolic, second observation 72 mm[Hg] [facility] blood pressure, syst olic, second observation 131 mm[Hg] [facility] oxygen saturation, oximetry 98 % [facility] pulse rate 64 /min [facility] blood pressure, diastolic 72 mm[Hg] Vi [facility] Ted blood pressure, systolic 131 mm[Hg] [facility] #2 66 [facility] blood pressure, koehler tolic, second observation 76 mm[Hg] [facility] blood pressure, syst olic, second observation 138 mm[Hg] [facility] oxygen saturation, oximetry 98 % [facility] pulse rate 66 /min [facility] blood pressure, diastolic 76 mm[Hg] Vi ctoria Ted blood pressure, systolic 138 mm[Hg] Merritt cari d pulse rate #2 68 [place] blood pressure, koehler tolic, second observation 79 mm[Hg] Rani blood pressure, syst olic, second observation 125 mm[Hg] [facility] oxygen saturation, oximetry 98 % Rani pulse rate 68 /min [place] blood pressure, diastolic 79 mm[Hg] Vi ctoria Ted blood pressure, systolic 125 mm[Hg] Merritt cari d pulse rate #2 65 [place] blood pressure, koehler tolic, second observation 71 mm[Hg] [facility] blood pressure, syst olic, second observation 125 mm[Hg] [facility] oxygen saturation, oximetry 98 % [place] pulse rate 65 /min Rani blood pressure, diastolic 71 mm[Hg] Vi [facility] d blood pressure, systolic 125 mm[Hg] Merritt cari d pulse rate #2 67 [place] blood pressure, koehler tolic, second observation 73 mm[Hg] [facility] blood pressure, syst olic, second observation 130 mm[Hg] Rani oxygen saturation, oximetry 98 % Rani pulse rate 67 /min Rani blood pressure, diastolic 73 mm[Hg] [facility], systolic 130 mm[Hg] Merritt andersonia d pulse rate #2 66 [place] blood pressure, koehler tolic, second observation 71 mm[Hg] [place] blood pressure, syst olic, second observation 132 mm[Hg] [facility] oxygen saturation, oximetry 98 % [facility] pulse rate 66 /min [place] Tebid blood pressure, diastolic 71 mm[Hg] Vi ctoria Tebid blood pressure, systolic 132 mm[Hg] Merritt cari Tebid pulse rate #2 67 [place] Tebid blood pressure, koehler tolic, second observation 73 mm[Hg] Rani Tebid blood pressure, syst olic, second observation 135 mm[Hg] Rani Tebid oxygen saturation, oximetry 98 % Rani Tebid pulse rate 67 /min [place] Tebid blood pressure, diastolic 73 mm[Hg] [facility] Tebid blood pressure, systolic 135 mm[Hg] Merritt cari Tebid pulse rate #2 77 [facility] blood pressure, koehler tolic, second observation 80 mm[Hg] [facility] blood pressure, syst olic, second observation 130 mm[Hg] [facility] oxygen [facility], oximetry 98 % [facility] pulse rate 77 /min [place] Tebid blood pressure, diastolic 80 mm[Hg] [facility] Tebid blood pressure, systolic 130 mm[Hg] Merritt cari Tebid pulse rate #2 62 [facility] blood pressure, koehler tolic, second observation 78 mm[Hg] [place] Tebid blood pressure, syst olic, second observation 136 mm[Hg] [place] Tebid oxygen saturation, oximetry 98 % [facility] pulse rate 62 /min [place] Tebid blood pressure, diastolic 78 mm[Hg] Vi [facility] Tebid blood pressure, systolic 136 mm[Hg] Merritt cari Tebid pulse rate #2 91 [facility] blood pressure, koehler tolic, second observation 81 mm[Hg] [facility] blood pressure, syst olic, second observation 117 mm[Hg] [facility] oxygen saturation, oximetry 98 % [facility] pulse rate 91 /min [facility] blood pressure, diastolic 81 mm[Hg] Vi ctoria Tebid blood pressure, systolic 117 mm[Hg] Merritt cari Tebid pulse rate #2 75 [facility], koehler tolic, second observation 71 mm[Hg] [facility] blood pressure, syst olic, second observation 134 mm[Hg] [facility] oxygen saturation, oximetry 98 % [facility] pulse rate 75 /min [facility] blood pressure, diastolic 71 mm[Hg] Vi [facility] Tebid blood pressure, systolic 134 mm[Hg] Merritt cari Tebid pulse rate #2 63 [facility] blood pressure, koehler tolic, second observation 75 mm[Hg] [facility] blood pressure, syst olic, second observation 136 mm[Hg] [facility] oxygen saturation, oximetry 98 % [facility] pulse rate 63 /min [place] d blood pressure, diastolic 75 mm[Hg] Vi aloria Tebid blood pressure, systolic 136 mm[Hg] Merritt cari Tebid pulse rate #2 74 [place] Tebid blood pressure, koehler tolic, second observation 78 mm[Hg] [place] Tebid blood pressure, syst olic, second observation 126 mm[Hg] Rani Tebid oxygen saturation, oximetry 98 % [facility] pulse rate 74 /min [place] Tebid blood pressure, diastolic 78 mm[Hg] Vi ctoria Tebid blood pressure, systolic 126 mm[Hg] Merritt andersonia Tebid pulse rate #2 71 [place] Tebid blood pressure, koehler tolic, second observation 77 mm[Hg] Rani Tebid blood pressure, syst olic, second observation 135 mm[Hg] Rani bid oxygen saturation, oximetry 98 % Rani bid pulse rate 71 /min [place] d blood pressure, diastolic 77 mm[Hg] Vi ctoria Tebid blood pressure, systolic 135 mm[Hg] Merritt cari Tebid pulse rate #2 69 [place] d blood pressure, koehler tolic, second observation 72 mm[Hg] [facility] blood [facility], syst olic, second observation 140 mm[Hg] Rani d oxygen saturation, oximetry 98 % Rani pulse rate 69 /min [place] d blood pressure, diastolic 72 mm[Hg] Vi ctoria Tebid blood pressure, systolic 140 mm[Hg] Merritt cari Tebid pulse rate #2 68 [place] d blood pressure, koehler tolic, second observation 74 mm[Hg] Rani d blood pressure, syst olic, second observation 135 mm[Hg] Rani d oxygen saturation, oximetry 98 % Rani d pulse rate 68 /min [place] bid blood pressure, diastolic 74 mm[Hg] Vi ctoria Tebid blood pressure, systolic 135 mm[Hg] Merritt cari Tebid pulse rate #2 66 [facility], koehler tolic, second observation 79 mm[Hg] [facility] blood pressure, syst olic, second observation 127 mm[Hg] Rani Tebid oxygen saturation, oximetry 98 % Rani d pulse rate 66 /min [place] Tebid blood pressure, diastolic 79 mm[Hg] Vi ctoria Tebid blood pressure, systolic 127 mm[Hg] Merritt cari Tebid pulse rate #2 63 [facility] blood pressure, koehler tolic, second observation 84 mm[Hg] Rani d blood pressure, syst olic, second observation 133 mm[Hg] Rani d oxygen saturation, oximetry 98 % [place] pulse rate 63 /min [facility] blood pressure, diastolic 84 mm[Hg] Vi [facility] Ted blood pressure, systolic 133 mm[Hg] Merritt cari Ted pulse rate #2 62 [facility] blood pressure, koehler tolic, second observation 68 mm[Hg] [facility] blood pressure, syst olic, second observation 129 mm[Hg] [facility] oxygen saturation, oximetry 98 % [facility] pulse rate 62 /min [facility] blood pressure, diastolic 68 mm[Hg] Vi [facility] Ted blood pressure, systolic 129 mm[Hg] Merritt cari Ted pulse rate #2 65 [place] blood pressure, koehler tolic, second observation 81 mm[Hg] [facility] syst olic, second observation 131 mm[Hg] [facility] oxygen [facility], oximetry 98 % [facility] pulse rate 65 /min [facility] blood pressure, diastolic 81 mm[Hg] [facility] Ted blood pressure, systolic 131 [...] tyler Dixon oxygen saturation, oximetry 98 % Delfino Dixon respiratory rate E&M 16 /min Shohola Dixon pulse rate 77 /min Shohola Dixon weight E&M 248 [lb_av] Delfino Dixon height E&M 62 [in_i] Shohola Dixon Body Mass Index (Ratio) 45.21 kg/m2 [...] Natalee Alonso blood pressure, diastolic 71 mm[Hg] Ne taiwo Alonso blood pressure, systolic 126 mm[Hg] [...] Alonso Body Mass Index (Ratio) 45.17 kg/m2 [facility] weight E&M 247 [lb_av] Natalee Alonso blood pressure, diastolic 72 mm[Hg] Ne taiwo Alonso blood pressure, systolic 142 mm[Hg] Cece angelo Alonso pulse rate 86 /min Natalee Alonso oxygen saturation, oximetry 97 % Natalee Alonso respiratory rate E&M 16 /min Natalee Alonso Body Mass Index (Ratio) 45.17 kg/m2 [facility] weight E&M 247 [lb_av] Natalee Alonso blood pressure, diastolic 77 mm[Hg] Me taiwo Patel blood pressure, systolic 164 mm[Hg] Cece Patel pulse rate 72 /min Natalee Patel oxygen saturation, oximetry 99 % Natalee Patel respiratory rate E&M 16 /min Natalee Patel Body Mass Index (Ratio) 45.50 kg/m2 [facility] rodrigo Patel weight E&M 248.8 [lb_av] Natalee Patel Body Mass Index (Ratio) 45.17 kg/m2 [facility] blood pressure, diastolic 65 mm[Hg] Ne taiwo Alonso blood pressure, systolic 133 mm[Hg] [...] Christian lder blood pressure, diastolic 78 mm[Hg] Ne taiwo Alonso blood pressure, systolic 145 mm[Hg] [...] Rani Tebid oxygen saturation, oximetry 97 % [facility] 75 /min [facility], diastolic 78 mm[Hg] [facility] Tebid blood pressure, systolic 139 mm[Hg] [facility] #2 72 [facility] Tebi blood pressure, koehler tolic, second observation 65 mm[Hg] Rani Tebid blood pressure, syst olic, second observation 148 mm[Hg] Rani Tebid oxygen saturation, oximetry 97 % Rani Tebid pulse rate 71 /min Rani Tebid blood pressure, diastolic 60 mm[Hg] [facility] Tebid blood pressure, systolic 151 [...] pressure, syst olic, second observation 121 mm[Hg] [facility] oxygen saturation, oximetry 97 % [facility] pulse rate 76 /min [facility] blood pressure, diastolic 58 mm[Hg] [facility] blood [facility], systolic 121 mm[Hg] Merritt alcala [facility] pulse rate #2 86 [facility] blood pressure, koehler tolic, second observation 61 mm[Hg] [facility] blood pressure, syst olic, second observation 132 mm[Hg] [facility] oxygen saturation, oximetry 97 % [facility] pulse rate 81 /min [facility] blood pressure, diastolic 66 mm[Hg] [facility], [facility] 144 mm[Hg] Merritt [facility] pulse rate #2 69 [facility] blood pressure, koehler tolic, second observation 64 mm[Hg] [facility] blood pressure, syst olic, second observation 129 mm[Hg] [facility] oxygen saturation, oximetry 97 % [facility] pulse rate 71 /min [facility] blood pressure, diastolic 71 mm[Hg] Vi [facility] blood pressure, systolic 136 mm[Hg] Merritt cari [facility] blood pressure, diastolic 71 mm[Hg] An eatris Tramaine blood pressure, systolic 135 mm[Hg] Ane atris Tramaine pulse rate 88 /min Yarelisatrerica [facility] oxygen saturation, oximetry 97 % Yarelisatrerica Redd respiratory rate E&M 18 /min Angelai kee Redd weight E&M 250 [lb_av] Yarelisatris Tramaine pulse rate #2 77 [facility] blood pressure, koehler tolic, second observation 77 mm[Hg] [facility] blood pressure, syst olic, second observation 135 mm[Hg] Rani Tebid oxygen saturation, oximetry 98 % Rani Tebid pulse rate 73 /min Rani Tebid blood pressure, diastolic 68 mm[Hg] Vi ctoria Tebid blood pressure, systolic 148 mm[Hg] Merritt cari Tebid pulse rate #2 82 [place] Tebid blood pressure, koehler tolic, second observation 74 mm[Hg] Rani Tebid blood pressure, syst olic, second observation 126 mm[Hg] Rani Tebid oxygen saturation, oximetry 98 % Rani bid pulse rate 85 /min Rani bid blood pressure, diastolic 86 mm[Hg] Vi ctoria Tebid blood pressure, systolic 146 mm[Hg] Merritt cari Tebid pulse rate #2 76 [place] Tebid blood pressure, koehler tolic, second observation 80 mm[Hg] Rani bid blood pressure, syst olic, second observation 134 mm[Hg] Rani Tebid oxygen saturation, oximetry 98 % Rani bid pulse rate 82 /min Rani Tebid blood pressure, diastolic 88 mm[Hg] Vi ctoria Tebid blood pressure, systolic 145 mm[Hg] Merritt cari Tebid pulse rate #2 77 [place] Tebid blood pressure, koehler tolic, second observation 72 mm[Hg] Rani Tebid blood pressure, syst olic, second observation 145 mm[Hg] Rani Tebid oxygen saturation, oximetry 98 % Rani bid pulse rate 71 /min Rani Tebid blood pressure, diastolic 69 mm[Hg] Vi ctoria Tebid blood pressure, systolic 148 mm[Hg] Merritt cari Tebid pulse rate #2 66 [place] Tebid blood pressure, koehler tolic, second observation [...] Merritt cari Tebid pulse rate #2 75 [place] Tebid blood pressure, koehler tolic, second observation 65 mm[Hg] Rani Tebid blood pressure, syst olic, second observation 129 mm[Hg] Rani Tebid oxygen saturation, oximetry 98 % Rani bid pulse rate 75 /min Hume Tebid blood pressure, diastolic 82 mm[Hg] Vi ctoria Tebid blood pressure, systolic 145 mm[Hg] Merritt cari Tebid pulse rate #2 73 [facility] Tebid blood pressure, koehler tolic, second observation 71 mm[Hg] Rani Tebid blood pressure, syst olic, second observation 134 mm[Hg] Rani Tebid oxygen saturation, oximetry 98 % [facility] 70 /min [facility] blood pressure, diastolic 93 mm[Hg] Vi ctoria Tebid blood pressure, systolic 151 mm[Hg] Merritt cari Tebid pulse rate #2 72 [place] Tebid blood pressure, koehler tolic, second observation 77 mm[Hg] [facility] Tebid blood pressure, syst olic, second observation 119 mm[Hg] [facility] Tebid oxygen saturation, oximetry 98 % [facility] Tebid pulse rate 74 /min [facility] Tebid blood pressure, diastolic 87 mm[Hg] Vi ctoria Tebid blood pressure, systolic 121 mm[Hg] Merritt cari Tebid pulse rate #2 72 [place] Tebid blood pressure, koehler tolic, second observation 81 mm[Hg] Rani Tebid blood pressure, syst olic, second observation 125 mm[Hg] [facility] Tebid oxygen saturation, oximetry 98 % [facility] pulse [facility] 74 /min [facility] Tebid blood pressure, diastolic 70 mm[Hg] Vi ctoria Tebid blood pressure, systolic 130 mm[Hg] Merritt cari Tebid pulse rate #2 82 Rani Tebid blood pressure, koehler tolic, second observation 75 mm[Hg] Rani bid blood pressure, syst olic, second observation 125 mm[Hg] [facility], oximetry 98 % Rani bid pulse rate 83 /min Hume bid blood pressure, diastolic 71 mm[Hg] Vi ctoria Tebid blood pressure, systolic 135 mm[Hg] Merritt cari Tebid pulse rate #2 77 [facility] Tebid blood pressure, koehler tolic, second observation 88 mm[Hg] [facility] blood [facility], syst olic, second observation 132 mm[Hg] [facility] oxygen saturation, oximetry 98 % [facility] pulse rate 73 /min [facility] blood pressure, diastolic 76 mm[Hg] Vi ctoria Tebid blood pressure, systolic 138 mm[Hg] Merritt cari Tebid pulse rate #2 76 [facility] d blood pressure, koehler tolic, second observation 79 mm[Hg] [facility] blood pressure, syst olic, second observation 126 mm[Hg] [facility] oxygen saturation, oximetry 98 % [facility] pulse rate 71 /min [facility] Tebid blood pressure, diastolic 84 mm[Hg] Vi ctoria Tebid blood pressure, systolic 146 mm[Hg] Merritt andersonia Tebid pulse rate #2 68 [facility] blood pressure, koehler tolic, second observation 80 mm[Hg] [facility] blood pressure, syst olic, second observation 136 mm[Hg] [facility] oxygen saturation, oximetry 98 % [facility] pulse rate 74 /min [facility], [facility] 83 mm[Hg] Vi ctoria Tebid blood pressure, systolic 140 mm[Hg] Merritt cari Tebid pulse rate #2 79 [place] Tebid blood pressure, koehler tolic, second observation 59 mm[Hg] Rani Tebid blood pressure, syst olic, second observation 124 mm[Hg] Rani Tebid oxygen saturation, oximetry 98 % Rani Tebid pulse rate 83 /min Hume Tebid blood pressure, diastolic 65 mm[Hg] Vi ctoria Tebid blood pressure, systolic 133 mm[Hg] Merritt cari Tebid pulse rate #2 80 [place] Tebid blood pressure, koehler tolic, second observation 78 mm[Hg] [facility] blood pressure, syst olic, second observation 127 mm[Hg] [facility] Tebid oxygen saturation, oximetry 98 % Hume Tebid pulse rate 76 /min Hume Tebid blood pressure, diastolic 81 mm[Hg] Vi ctoria Tebid blood pressure, systolic 140 mm[Hg] Merritt cari Tebid pulse rate #2 78 [place] Tebid blood pressure, koehler tolic, second observation 83 mm[Hg] Rani Tebid blood pressure, syst olic, second observation 137 mm[Hg] Rani Tebid oxygen saturation, oximetry 98 % [facility] Tebid pulse rate 75 /min Hume Tebid blood pressure, diastolic 82 mm[Hg] Vi ctoria Tebid blood pressure, systolic 135 mm[Hg] Merritt cari Tebid pulse rate #2 76 [facility] blood pressure, koehler tolic, second observation 81 mm[Hg] [facility] blood pressure, syst olic, second observation 145 mm[Hg] [facility] Tebid oxygen saturation, oximetry 98 % Rani [...] % Rani Tebid pulse rate 68 /min Hume Tebid blood pressure, diastolic 91 mm[Hg] Vi ctoria Tebid blood pressure, systolic 134 mm[Hg] Merritt cari Tebid pulse rate #2 82 [place] Tebid blood pressure, koehler tolic, second observation 86 mm[Hg] Rani Tebid blood pressure, syst olic, second observation 140 mm[Hg] Rani Tebid oxygen saturation, oximetry 98 % Hume Tebid pulse rate 73 /min Hume Tebid blood pressure, diastolic 89 mm[Hg] Vi ctoria Tebid blood pressure, systolic 143 mm[Hg] Merritt cari Tebid pulse rate #2 82 [place] Tebid blood pressure, koehler tolic, second observation 77 mm[Hg] Rani Tebid blood pressure, syst olic, second observation 135 mm[Hg] Rani Tebid oxygen saturation, oximetry 98 % Hume Tebid pulse rate 73 /min Hume Tebid blood pressure, diastolic 89 mm[Hg] Vi ctoria Tebid blood pressure, systolic 148 mm[Hg] Merritt cari Tebid pulse rate #2 77 [place] Tebid blood pressure, koehler tolic, second observation 83 mm[Hg] Rani Tebid blood pressure, syst olic, second observation 146 mm[Hg] [facility], oximetry 98 % Rani bid pulse rate 83 /min Hume bid blood pressure, diastolic 90 mm[Hg] Vi ctoria Tebid blood pressure, systolic 148 mm[Hg] Merritt cari Tebid pulse rate #2 73 [place] bid blood pressure, koehler tolic, second observation 61 mm[Hg] Rani d blood pressure, syst olic, second observation 130 mm[Hg] [facility] oxygen saturation, oximetry 98 % Rani d pulse rate 76 /min Hume d blood pressure, diastolic 65 mm[Hg] Vi ctoria Tebid blood pressure, systolic 139 mm[Hg] Merritt cari Tebid pulse rate #2 74 Hume d blood pressure, koehler tolic, second observation 89 mm[Hg] [facility] blood pressure, syst olic, second observation 132 mm[Hg] Rani bid oxygen saturation, oximetry 98 % Rani d pulse rate 75 /min Hume bid blood pressure, diastolic 91 mm[Hg] Vi ctoria Tebid blood pressure, systolic 158 mm[Hg] Merritt cari Tebid pulse rate #2 73 Rani Tebid blood pressure, koehler tolic, second observation 82 mm[Hg] Rani bid blood pressure, syst olic, second observation 125 mm[Hg] Rani Tebid oxygen saturation, oximetry 98 % Rani d pulse rate 74 /min Hume bid blood pressure, diastolic 93 mm[Hg] Vi ctoria Tebid blood pressure, systolic 152 mm[Hg] Merritt cari Tebid pulse rate #2 81 [place] Tebid blood pressure, koehler tolic, second observation 85 mm[Hg] [facility], syst olic, second observation 142 mm[Hg] [facility], oximetry 98 % [facility] pulse rate 82 /min [facility] blood pressure, diastolic 68 mm[Hg] Vi ctoria Tebid blood pressure, systolic 142 mm[Hg] Merritt cari Tebid pulse rate #2 78 [facility] blood pressure, koehler tolic, second observation 73 mm[Hg] [facility] blood pressure, syst olic, second observation 122 mm[Hg] Hume Tebid oxygen saturation, oximetry 98 % [facility] pulse rate 75 /min [facility] blood pressure, diastolic 81 mm[Hg] [facility] Tebid blood pressure, systolic 138 mm[Hg] Merritt alcala Tebid Body Mass Index (Ratio) 46.63 kg/m2 Arlene wallace Alonso blood pressure, diastolic 65 mm[Hg] Ne taiwo Alonso blood pressure, systolic 121 mm[Hg] [...] [employer] 3.5-5.2 sodium, serum 142 mmol/L [employer] 625-396 9409/08/ 19 urea nitrogen/creatinine ratio, serum 16 [employer] [...] 0-149 High cholesterol, serum 168 mg/dL [employer] [phone]/09/ 07 hemoglobin A1C, blood, as % of [...] Not Estab. platelet count 206 X10E3/UL [employer] [phone]/09/ 07 red blood cell distribution width 15.1 [...] [employer] 3.5-5.2 sodium, serum 141 mmol/L [employer] 624-045 0796/09/ 07 urea nitrogen/creatinine ratio, serum 20 [employer] [...] iron binding capacity, unsaturated 227 ug/dL [employer] 891-095 8082/02/ 06 iron binding capacity, total 281 ug/dL [employer] 582-206 8883/02/ 06 basophil count, absolute 0.0 x10E3/uL [employer] [...] Not Estab. platelet count 277 X10E3/UL [employer] 237-688 8988/02/ 06 red blood cell distribution width 15.7 [...] 9.0-11.5 platelet count 245 THOUSAND/U L [employer] [phone]/10/ 02 Absolute Basophils 0.0 CELLS/UL [facility] 0.0-0.2 [...] [employer] 3.5-5.1 sodium, serum 140 mmol/L [employer] 127-217 2097/10/ 02 creatinine, serum 0.8 mg/dL [facility] 0.5-0.9 [...] 3.5 - 5.1 sodium, serum 145.0 [facility]/L [facility]0 creatinine, serum 0.7 [...] - 1.2 urea nitrogen, blood 15.0 mg/dL [facility] 6.[facility] - 20.0 blood glucose, random 136.0 mg/dL [facility] 74.0 - 99.0 High nitrate usage None Rani Tebid hemoglobin A1C, blood, as % of total hemoglobin 10.9 % [facility] thyroid stimulating hormone, serum 1.120 u[IU]/mL [facility] very low density lipoproteins 52 mg/dL [facility] triglyceride, serum, fasting 260 mg/dL [facility] HDL cholesterol, serum 48 mg/dL [facility] LDL cholesterol, serum 118 mg/dL [facility] cholesterol, serum 218 mg/dL [facility] albumin/globulin ratio, serum 1.3 [facility] protein, total, serum 7.2 g/dL [facility] albumin, serum 4.1 g/dL [facility] bilirubin, serum, total 0.4 mg/dL [facility] alkaline phosphatase, serum 72 1/L [facility] alanine aminotransferase (SGPT), serum 15 1/L [facility] aspartate aminotransferase (SGOT), serum 15 1/L [facility] calcium, serum 9.5 mg/dL [facility] blood glucose, fasting 170 mg/dL [facility] creatinine, serum 0.70 mg/dL [facility] urea nitrogen, blood 8 mg/dL [facility] carbon dioxide, serum, total 17 mmol/L [facility] chloride, serum 99 mmol/L [facility] potassium, serum 4.0 mmol/L [facility] sodium, serum 135 mmol/L [facility] thyroid stimulating hormone, serum 0.94 [...] - [place] sodium, serum 140 mmol/L David Mason platelet [...] BY MOUTH EVERY DAY - April Lane MA Specialist clopidogrel 75 mg tablet completed Take [...] mouth daily - Toño Mann RN PRISTIQ [id number] completed daily - Toño Mann RN ZETIA [...] TABLET completed TWO TAB ONCE DAILY - Shohola Zack COREG 3.125 MG ORAL TABLET completed [...] passive cigarette sm jese exposure no Erwin [place] smoking status Never smoker Erwin David drug [...] [place] smoking status Never smoker Raven rae [facility] social history reviewed E&M revi ewed - no changes required Raven Siddiqui [facility] physical exercise, frequency, days per week no Vagarret Zarate caffeine use, averag e drinks per day yes Va Zarate passive cigarette sm jese exposure no Va Zarate social history E&M Marital Statu s: Single L peewee with family/friends E thnicity: Smoking History: P yasmin has never smoked. Kvng Valverde MD social history reviewed E&M revi ewed - no changes required Kvng Valvrede MD physical exercise, frequency, days per week [...] physical exercise, frequency, days per week no [facility] use, averag e drinks per day yes [facility] passive cigarette sm jese exposure no [facility] social history E&M Marital Statu s: [...] peewee with family/friends E thnicity: Smoking History: Stomr hoffman has never smoked. Kvng Valverde MD physical exercise, frequency, days per week no [facility] alcohol use, average drinks per day no [facility] alcohol use no [facility] caffeine use, averag e drinks per day yes [facility] drug use none [facility] passive cigarette sm jese exposure no [facility] smoking status Never [facility] reviewed E&M revi ewed - [...] Shen passive cigarette sm jese exposure no Amarilsi Shen smoking status Never smoker Amarilis Shen [...] use, average drinks per day no Azra Largo alcohol use no Azra Jone caffeine use, averag e drinks per day yes Azra Jone drug use none Azra Largo passive cigarette sm jese exposure no Azra Jone smoking status Never smoker Azra Jone social history reviewed E&M revi ewed - no changes required Kvng Valverde MD physical exercise, frequency, days per week no Shohola Dixon alcohol use, average drinks per day no Shohola Dixon alcohol use no Delfino Dixon caffeine use, averag e drinks per [...] level yes Rani Tebid energy level yes Hume Tebid energy level yes Rani Tebid energy [...] level yes Rani Tebid energy level yes Hume Tebid energy level no Hume Tebid energy level no Hume Tebid energy level no Hume Tebid energy level yes Hume Tebid energy level yes Hume Tebid energy level yes Hume Tebid energy level yes Hume Tebid energy level yes Hume Tebid energy level yes Hume Tebid energy level yes Hume Tebid energy level yes Hume Tebid energy level yes Hume Tebid energy level yes Hume Tebid energy level yes Hume Tebid energy level yes Hume Tebid energy level yes Hume Tebid energy level yes Hume Tebid energy level yes Hume Tebid energy level yes Hume Tebid energy level yes Hume Tebid energy level yes Hume Tebid energy level yes Hume Tebid energy level yes Hume Tebid energy level yes Hume Tebid energy level yes Hume Tebid energy level yes Hume Tebid energy level yes Hume Tebid energy level yes Hume Tebid energy level yes Hume Tebid energy level yes Hume Tebid energy level no Hume Tebid energy level no Hume Tebid energy level yes Hume Tebid energy level no Hume Tebid energy level no Hume Tebid energy level no Hume Tebid energy level yes Hume Tebid energy level no Hume Tebid assessment of judgme nt and insight [...] RN FAMILY HISTORY Family Member Condition Father SD male <55 Mother Family History of Hy pertension: Mother Family History of Di abetes: Mother Family History Breas t Cancer: Father Family History Coron yash Heart Disease male < 55: INSURANCE PROVIDERS Payer name Policy type / Coverage type [place] red libertarian ID [facility] [email or web address] [phone] [place] Medicare [id number] ADVANCE DIRECTIVES Name Date DISCUSSED - NO DECISION MADE TREATMENT PLAN Date Name Performer [id number],S, Silverio Ahmedza i [id number],S, Silverio Ahmedza i [id number],S, Silverio Ahmedza i [id number],S, Silverio Ahmedza i [id number],S, Silverio Ahmedza i [id number],S, Silverio Ahmedza i [id number],S, Silverio Ahmedza i [id number],B, Silverio Ahmedza i [id number],S, Silverio Ahmedza i [id number],S, Silverio Ahmedza i [id number],S, Silverio Ahmedza i [id number],S, Silverio Ahmedza i [id number],S, Silverio Ahmedza i [id number],S, Silverio Ahmedza i [id number],B,Pt reports no SOB today Toney Pulido MD [id number],S,P t tried multiple types of compression stockings without helping symptoms. W ill proceed with Venaseal of right leg. Also discussed customized stockings Toney Pulido MD [id number],S,161/69 today Toney Pulido MD [id number],S,P t reports some leg cramping and more pain/swelling in her right leg. Cramping has been somewhat improving. Toney Pulido MD [id number],W, Kvng Valverde MD [id number],S, Kvng Valverde MD [id number],S, Kvng Valverde MD [id number],B, Kvng Valverde MD [id number],S, Kvng Valverde MD [id number],S, Silverio Clark i [id number],S, Silverio Finleymedza i [id number],S, Silverio Ahmedza i [id number],S, Silverio Ahmedza i [id number],S, Silverio Ahmedza i [id number],S, Silverio Ahmedza i [id number],S, Silverio Ahmedza i [id number],S, Silverio Ahmedza i [id number],S, Silverio Ahmedza i [id number],S, Silverio Ahmedza i [id number],S, Silverio Ahmedza i [id number],S, Silverio Ahmedza i [id number],S, Silverio Ahmedza i [id number],S, Silverio Ahmedza i [id number],S, Silverio Ahmedza i [id number],S, Silverio Ahmedza i [id number],S, Silverio Ahmedza i [id number],S, Silverio Ahmedza i [id number],S, Silverio Ahmedza i [id number],S, Silverio Ahmedza i [id number],S, Silverio Ahmedza i [id number],S, Silverio Ahmedza i [id number],S, Silverio Ahmedza i [id number],S, Silverio Ahmedza i [id number],S, Silverio Ahmedza i [id number],S, Silverio Ahmedza i [id number],S, Silverio Ahmedza i [id number],S, Silverio Ahmedza i [id number],S, Silverio Ahmedza i [id number],S, Silverio Ahmedza i [id number],S, Silverio Ahmedza i [id number],S, Silverio Ahmedza i [id number],S, Silverio Ahmedza i [id number],S, Silverio Ahmedza i [id number],S, Silverio Ahmedza i [id number],S, Silverio Ahmedza i [id number],S, Silverio Ahmedza i [id number],S, Kvng Valverde MD [id number],W, Kvng Valverde MD [id number],B, Kvng Valverde MD [id number],B, Kvng Valverde MD [id number],W, Kvng Valverde MD Cardiology: O rders: C BC (INCLUDES DIFF/PLT) (6399) F ERRITIN (457) I JONG AND TOTAL IRON BINDING CAPACITY (7573) C OMPREHENSIVE METABOLIC PANEL, W/EGFR (17704) L IPID PANEL (7600) PROBNP, N TERMINAL (32920) T SH, free T4, total T3 (7444) [...] Kvng Valverde MD Cardiology Silverio Obando Cardiology [facility] Cardiology: H er updated medication list for this problem includes: Aspirin 81 Mg Tablet,delayed Release (dr/ec) (Aspirin) ..... 1 tablet by mouth once a day Orders: M onitor - Telemetry (Mobile Cardiac) (CPT-60440) [facility] Cardiology: H er updated medication list for [...] (Dulaglutide) ..... Inject 1 once a week [facility] Cardiology [facility] Cardiology [facility] Cardiology [facility] Cardiology: H er updated medication list for [...] 54 (04/08/2021) LDL: 83 (04/08/2021) T (04/08/2021) [facility] Cardiology [facility] Cardiology [facility] Cardiology:This visi t has been a part of the consistent, comprehensive, and ongoing management of the chronic medical condition(s) listed above for the patient. Kvng Valverde MD Cardiology [facility] Cardiology [facility] Cardiology [facility] Card[facility] Cardiology [facility] Cardiology: O rders: C arotid Duplex Bilateral (CPT-65004) [facility] Cardiology: H er updated medication list for [...] (Dulaglutide) ..... Inject 1 once a week [facility] Cardiology: H er updated medication list for this problem includes: Losartan 50 Mg Tablet (Losartan) ..... Take 1/2 tablet by mouth twice a day Furosemide 20 Mg Tablet (Furosemide) ..... Take 1 tablet by mouth every day Aspirin 81 Mg Tablet,delayed Release (dr/ec) (Aspirin) ..... 1 tablet by mouth once a day [facility] Cardiology Erwin Okeefety Cardiology:compression advised T kashmirs David Cardiology Erwin Okeefety Cardiology [facility] Cardiology:Denies angina, SOB. C ontinue medical therapy Erwin Hernandez Cardiology [facility] Card[facility]: B P today: 143/74 P rior BP: 118/64 (10/02/2023) Prior 10 Yr Risk Heart Disease: Not enough information (11/29/2021) Labs Reviewed: C reat: 0.87 (04/08/2021) Chol: 168 (04/08/2021) HDL: 54 (04/08/2021) LDL: 83 (04/08/2021) T (04/08/2021) [facility] Card[facility]: B P today: 118/64 P rior BP: 134/66 (09/05/2023) Prior 10 Yr Risk Heart Disease: Not enough information (11/29/2021) Labs Reviewed: C reat: 0.87 (04/08/2021) Chol: 168 (04/08/2021) HDL: 54 (04/08/2021) LDL: 83 (04/08/2021) T (04/08/2021) Silverio claudette Cardiology [facility] Cardiology: H er updated medication list for this problem includes: Ezetimibe 10 Mg Tablet (Ezetimibe) ..... Take 1 tablet by mouth every day Atorvastatin 80 Mg Tablet (Atorvastatin) ..... Take 1 tablet by mouth every evening [facility]:MARIBEL 09/09 23 which revealed normal LVF, The Aortic Valve Mean Gradient is 14.7 m Hg . The ESHA is 1.6 cm2 by planimetry and 1.2 cm2 by calculation. The dimensionless index is 0.5. Silverio Obando Cardiology [facility] Topher Cardiology [facility] Silverio Ahmedzai Cardiology Silverio Ahmedzai Cardiology [...] MD Cardiology Kvng Valverde MD Cardiology Kvng Valevrde MD Cardiology Kvng Valverde MD Cardiology Kvng [...] Toniya Willy rios MD Cardiology Vince C David Cardiology:The patie nt is using CPAP on [...] follow up - ltr done Lisa Manuel JAILL Cardiology follow up - ltr done Lisa [...] ..... Once daily Orders: C omplete Echo (CPT-74679) Mook Green MD follow up: H er updated medication list for this problem includes: Aspirin 81 Mg Tabs (Aspirin) ..... One tab. daily Orders: C omplete Echo (CPT-21604) X -Ray, Chest, PA & Lateral (CPT-11586) Mook Green MD follow up Mook Green [...] hypokinesis with an EF of 50%. 2+ [facility] (08/01/2006) Kvng Valverde MD Follow [...] with an EF of 50%. 2+ [facility] (08/01/2006) C arotid Doppler/Duplex: Mild [...] 0.94 (12/02/2008) T4 (total): 8.1 (12/02/2008) Kvng Vavlerde MD Chest Pain, Echo don e today: [...] criteria at 79% of target heart rate. [facility] (12/02/2008) C ardiac Cath: Normal coronary arteries. Mild antral hypokinesis with an EF of 50%. 2+ MR[facility] (08/01/2006) C arotid Doppler/Duplex: Mild [...] criteria at 79% of target heart rate. [facility] (12/02/2008) C ardiac Cath: Normal coronary arteries. Mild antral hypokinesis with an EF of 50%. 2+ MR[facility] (08/01/2006) C arotid Doppler/Duplex: Mild [...] criteria at 79% of target heart rate. [facility] (12/02/2008) C ardiac Cath: Normal coronary arteries. Mild antral hypokinesis with an EF of 50%. 2+ MR[facility] (08/01/2006) C arotid Doppler/Duplex: Mild plaque is seen in the RCCA. Less than 50% stenosis of the ICA bilaterally. The flow in the vertebra arteries is antegrade bilaterally. [facility] (06/26/2006) C HOL: 192 (12/02/2008) LDL: 102 [...] & TR. GCO (02/10/2009) Orders: E KG (CPT-40541) Kvng Valverde MD chest pain: H er [...] criteria at 79% of target heart rate. [facility] (12/02/2008) C ardiac Cath: Normal coronary arteries. Mild antral hypokinesis with an EF of 50%. 2+ MR. [facility] (08/01/2006) C arotid Doppler/Duplex: Mild [...] criteria at 79% of target heart rate. [facility] (12/02/2008) C ardiac Cath: Normal coronary arteries. Mild antral hypokinesis with an EF of 50%. 2+ MR. [facility] (08/01/2006) C arotid Doppler/Duplex: Mild plaque is seen in the RCCA. Less than 50% stenosis of the ICA bilaterally. The flow in the vertebra arteries is antegrade bilaterally. [facility] (06/26/2006) E chocardiogram: TDS. Normal LV systolic function EF 65%. LVH. Dilated LV. Moderate LAE. Trace MR. Trace TR with PA pressure of 21mmHg. [facility] (06/26/2006) Kvng Valverde MD : H er updated medication list for this problem includes: Coreg 3.125 Mg Tabs (Carvedilol) ..... Bid BP today: 127/78 Prior BP: / () N uclear Stress Findings: Test is considered to be negative by ECG criteria at 79% of target heart rate. [facility] (12/02/2008) C ardiac Cath: Normal coronary arteries. Mild antral hypokinesis with an EF of 50%. 2+ MR. [facility] (08/01/2006) C arotid Doppler/Duplex: Mild plaque is seen in the RCCA. Less than 50% stenosis of the ICA bilaterally. The flow in the vertebra arteries is antegrade bilaterally. [facility] (06/26/2006) E chocardiogram: TDS. Normal LV systolic function EF 65%. LVH. Dilated LV. Moderate LAE. Trace MR. Trace TR with PA pressure of 21mmHg. [facility] (06/26/2006) Kvng Valverde MD : H er updated medication list for this problem includes: Coreg 3.125 Mg Tabs (Carvedilol) ..... Bid BP today: 127/78 Prior BP: / () N uclear Stress Findings: Test is considered to be negative by ECG criteria at 79% of target heart rate. [facility] (12/02/2008) C ardiac Cath: Normal coronary arteries. Mild antral hypokinesis with an EF of 50%. 2+ MR[facility] (08/01/2006) C arotid Doppler/Duplex: Mild plaque is seen in the RCCA. Less than 50% stenosis of the ICA bilaterally. The flow in the vertebra arteries is antegrade bilaterally. [facility] (06/26/2006) Orders: E KG (CPT-97374) Kvng Valverde MD Date Name HEMOGLOBIN A1c TSH, free T4, total T3 PROBNP, N TERMINAL LIPID PANEL COMPREHENSIVE METABO LIC PANEL, W/EGFR IRON AND TOTAL IRON BINDING CAPACITY FERRITIN CBC (INCLUDES DIFF/P LT) Monitor - Telemetry (Mobile Cardiac) Complete Echo Carotid Duplex Bilat eral Carotid Duplex Bilat eral MARIBEL - [facility] Venous Doppler Unila teral RLE Venous Doppler Unila teral LLE Venous Doppler Unila teral RLE Venous Doppler Unila teral LLE Arterial Duplex to r /o pseudoanuerysm VenaSeal Venous Doppler Bilat eral LE - Reflux RPM Enroll: BP RPM (remote patient monitoring) Complete Echo DLCO - 03798 FRC - 18012 FVC - 33432 Carotid Duplex Bilat eral CXR- PA/Lat Carotid [...] completed FVC / MVV with bronchodilator - 11789 Kvng Valverde MD completed BLOOD COUNT HEMOGLOBIN Kvng Valverde MD completed FRC - 74664 Kvng Valverde MD complete d SpO2 w/o 6min walk/titration Kvng Valverde MD completed SVC - 52548 Kvng Valverde MD complete d DLCO - 78890 Kvng Valverde MD complet ed EKG Kvng Valverde MD completed EKG Kvng Valverde MD completed EKG Kvng Valverde MD completed EKG Kvng Valverde MD completed EKG Kvng Valverde MD completed SNOMED-CT: 79861517 Physical Exam, Performed: Pulse Exam of Foot Kvng Valverde MD completed SNOMED-CT: [id number] Current Medications Documented Kvng Valverde MD completed SNOMED-CT: [id number] 720679 Current Medications Documented Kvng Valverde MD completed SNOMED-CT: [id number] 143273 Current Medications Documented Kvng Valverde MD completed SNOMED-CT: 90353744 Physical Exam, Performed: Pulse Exam of Foot Kvng Valverde MD completed SNOMED-CT: 14353961 Physical Exam, Performed: Pulse Exam of Foot Kvng Valverde MD completed EKG Kvng Valverde MD completed SNOMED-CT: 629528397 106713 Current Medications Documented Kvng Valverde MD completed SNOMED-CT: 90085733 Physical Exam, Performed: Pulse Exam of Foot Kvng Valverde MD completed SNOMED-CT: 267715267 451304 Current Medications Documented Kvng Valverde MD completed SNOMED-CT: 41718035 Physical Exam, Performed: Pulse Exam of Foot Kvng Valverde MD completed SNOMED-CT: 054009216 965657 Current Medications Documented Kvng Valverde MD completed SNOMED-CT: 44597023 Physical Exam, Performed: Pulse Exam of Foot Kvng Valverde MD completed EKG Kvng Valverde MD completed SNOMED-CT: 282638095 410393 Current Medications Documented Kvng Valverde MD completed EKG Kvng Valverde MD completed EKG Mook Green MD complete d EKG Kvng Valverde MD completed EKG Kvng Valverde MD completed
--- OUTSIDE RECORDS SUMMARY | 2024-12-26 00:43 | XMS_ITS | Referral Summary ---
Author Organization [facility] Address [address] [place] [address] Phone Care Team Providers Care Newspaper Deliverer Name Role Phone Maurice Daniels MD Primary Care Provider [phone] Jeremias Grewal MD Unavailable Brennen Maldonado MD Unavailable Alonso Antunez DNP Unavailable Dejuan Butterfield MD Unavailable [phone] John Avila MD Unavailable Vin Oliver MD Unavailable [phone] Kvng Valverde MD Unavailable Prabhu Harp NP Unavailable Ary Spangler OT Unavailable Encounters Date Type Department Care Team Description 12/24/2024 9:00 AM CDT Therapy [facility] Occupational Therapy [address] [place] [phone] Ary Spangler OT 12/17/2024 10:15 AM CDT Lab [facility] Lab [address] [place] [phone] Beta thalassemia minor; Urinary frequency 12/17/2024 10:00 AM CDT Lab [facility] Oncology [address] [place] [phone] Beta thalassemia minor 12/17/2024 10:30 AM CDT Office Visit [facility] Bone Marrow Transplant [address] [place] [phone] Alonso Antunez DNP Beta thalassemia minor (Primary Dx); Urinary frequency 12/10/2024 9:00 AM CDT Therapy [facility] Occupational Therapy [address] [place] [phone] Ary Spangler OT Cortical visual impairment (Primary Dx) 12/09/2024 8:30 AM CDT Office Visit [facility] Ophthalmology [address] [facility] 6th [place] [phone] Romelia Ayoub MD Cortical visual impairment (Primary Dx) 11/26/2024 Plan of Care Documentation [facility] Occupational Therapy [address] [place] [phone] 11/26/2024 9:00 AM CDT Therapy [facility] Occupational Therapy [address] [place] [phone] Ary Spangler OT Cortical visual impairment (Primary Dx) 11/19/2024 9:00 AM CDT Therapy [facility] Occupational Therapy [address] [place] [phone] Ary Spangler OT Cortical visual impairment (Primary Dx) 11/05/2024 2:30 PM CDT Therapy [facility] Occupational Therapy [address] [place] [phone] Ary Spangler OT Cortical visual impairment (Primary Dx) 10/22/2024 12:41 AM UTILITY SALES REPRESENTATIVE - 10/22/2024 11:06 AM UTILITY SALES REPRESENTATIVE Emergency [facility] Emergency Department [address] [place] [address] Masood Gibson MD COVID-19 virus infection (Primary Dx); Chronic nausea; Chronic abdominal pain; Hypertension, unspecified type Discharge Disposition: Discharge to home or self care 10/01/2024 2:30 PM UTILITY SALES REPRESENTATIVE Therapy [facility] Occupational Therapy [address] [place] [phone] Aníbal, Ary, OT Cortical visual impairment (Primary Dx) from [...] reported), 1 every other day, Reported on 12/17/2024 losartan (COZAAR) 50 mg tablet Take 1 [...] (12/04/2018): Added automatically from request for surgery [id number] Immunizations Immunization Administration Dates Next Due Influenza, [...] on file Legal Sex Female 5:26 AM UTILITY SALES REPRESENTATIVE Gender Identity Not on file Sexual Orientation Not on file Last Filed Vital Signs Vital Sign Reading Time Taken Comments Blood Pressure 125/69 12/17/2024 10:09 AM CDT Pulse 74 12/17/2024 10:09 AM CDT Temperature 36.6 C (97.8 F) 12/17/2024 10:09 AM CDT Respiratory Rate 17 12/17/2024 10:09 AM CDT Oxygen Saturation 100% 12/17/2024 10:09 AM CDT Inhaled Oxygen Concentration - - Weight 86.7 kg (191 lb 3.2 oz) 12/17/2024 10:09 AM CDT Height 156 cm (5' 1.42 ) 12/17/2024 10:09 AM CDT Body Mass Index 35.64 12/17/2024 10:09 AM CDT Plan of Treatment Not on file Medical Devices Implanted Type [place] Adviser Device Identifier Shelf Expiration Date Model / Serial / Lot [employer] [id number] Inspiris Resilia Leaflet Sewing Ring 21mm Valve Aortic Bovine - [id number] - [id number] Implanted:Qty: 1 on 01/18/2019 by Jeremias Grewal MD at [facility] N/A: Heart [employer] 09/06/2020 [id number] / [id number] / Description:Aortic Valve Procedures Procedure Name Priority Date/Time Associated Diagnosis Comments URINALYSIS AND REFLEX TO MICROSCOPIC AND CULTURE Routine 12/17/2024 11:01 AM CDT Urinary frequency EGFR Routine 12/17/2024 10:02 AM CDT Beta thalassemia minor DIFFERENTIAL AUTO Routine 12/17/2024 10: 02 AM CDT Beta thalassemia minor CBC WITH AUTO DIFFERENTIAL Routine 12/17/2024 10:02 AM CDT Beta thalassemia minor COMPREHENSIVE METABOLIC PANEL Routine 12/17/2024 10:02 AM CDT Beta thalassemia minor FL CRITICAL CARE ILL/INJURED PATIENT INIT 30-74 MIN Routine 10/22/2024 10:45 AM UTILITY SALES REPRESENTATIVE POCT GLUCOSE DEVICE Routine 10/22/2024 8 :54 AM UTILITY SALES REPRESENTATIVE CT ABDOMEN PELVIS W CONTRAST ED 10/22/2024 8:46 AM UTILITY SALES REPRESENTATIVE URINALYSIS AND REFLEX TO MICROSCOPIC AND CULTURE STAT 10/22/2024 8:34 AM UTILITY SALES REPRESENTATIVE RESPIRATORY PATHOGEN PANEL STAT 10/22/2024 8:04 AM UTILITY SALES REPRESENTATIVE LIPASE Add-On 10/22/2024 1:59 AM UTILITY SALES REPRESENTATIVE TROPONIN T HIGH-SENSITIVITY 2-HOUR Timed 10/22/2024 1:59 AM UTILITY SALES REPRESENTATIVE XR CHEST 1 VIEW ED 10/22/2024 12:40 AM UTILITY SALES REPRESENTATIVE EGFR STAT 10/21/2024 11:34 PM UTILITY SALES REPRESENTATIVE DIFFERENTIAL AUTO STAT 10/21/2024 11: 34 PM UTILITY SALES REPRESENTATIVE TROPONIN T HIGH-SENSITIVITY SERIES (BASELINE, 2HR, 4HR, 6HR) STAT 10/21/2024 11:34 PM UTILITY SALES REPRESENTATIVE COMPREHENSIVE METABOLIC PANEL STAT 10/21/2024 11:34 PM UTILITY SALES REPRESENTATIVE CBC WITH AUTO DIFFERENTIAL STAT 10/21/2024 11:34 PM UTILITY SALES REPRESENTATIVE ECG 12-LEAD Routine 10/21/2024 11:29 PM UTILITY SALES REPRESENTATIVE LIPID PANEL Routine 01/20/2019 2:19 AM CDT HEMOGLOBIN A1C Routine 12/31/2018 1:30 PM CDT Preop testing from Last 3 Months or Most Recently Relevant to Health Maintenance Results * Urinalysis reflex to microscopic and culture Urine, clean voided (12/17/2024 11:01 AM CDT) Color, ur Yellow Yellow Clarity, ur Clear Clear [facility]ER CH Specific gravity, ur 1.014 1.003 - 1.030 CERNER CH pH, urine 5.0 CERNER CH Comment: Interpretive Data U rine pH is affected by diet, medications, systemic acid-base disturbances, and renal tubular function. pH may affect urinary stone formation. For example, urine pH below 6.0 may help reduce the tendency for calcium phosphate stones and pH greater than 6.0 may reduce the tendency for uric acid stone formation. Source: [facility] Current Interpretive Data was last revised on [...] microscopic UA and culture not met. CERNER Urine, clean voided 12/17/2024 11:01 AM CDT 12/17/2024 11:43 AM CDT Alonso Antunez DNP LAB MICROBIOLOGY - GENERA L ORDERABLES Final Result [facility] [address] [place] [address] * (ABNORMAL) eGFR (12/17/2024 10:02 AM CDT) eGFR 48(L) >=60 mL/min/1. 73 m2 Comment: Interpretive Data [...] Current interpretive data was last reviewed 2021. Testing performed by: [facility] [place] [address] Blood 12/17/2024 10:0 2 AM CDT 12/17/2024 10:02 AM CDT us Brennen Maldonado MD LAB BLOOD ORDERABLES Fin al Result [facility] [address] Department of Laboratories [place], [place] [id number] * (ABNORMAL) Differential, auto (12/17/2024 10:02 AM CDT) Neutrophil abs 7.57(H) 1.50 - 6.50 K/cumm Comment:Testing performed by : [facility] [place] [address] Imm gran abs 0.03 0.00 - 0.10 K/cumm CERNER Comment:Testing performed by : [facility] [place] [address] Lymphocyte abs 2.26 0.80 - 3.30 K/cumm CERNER CH Comment:Testing performed by : [facility] [place] [address] Monocyte abs 0.72 0.20 - 0.80 K/cumm CERNER CH Comment:Testing performed by : [facility] [place] [address] Eosinophil abs 0.37 0.00 - 0.50 K/cumm CERNER CH Comment:Testing performed by : [facility] [place] [address] Basophil abs 0.06 0.00 - 0.10 K/cumm CERNER CH Comment:Testing performed by : [facility] [place] [address] Neutrophil pct 68.8 % CERNER Comment: Interpretive Data Percent cell count reference ranges are not reported, since discordance with absolute values may lead to misinterpretation of CBC data. Current Interpretive Data was last revised on 2017. Testing performed by: [facility] [place] [address] Imm gran pct 0.3 % CERNER Comment: Interpretive Data Percent cell count reference ranges are not reported, since discordance with absolute values may lead to misinterpretation of CBC data. Current Interpretive Data was last revised on 2017. Testing performed by: [facility] [place] [address] Lymphocyte pct 20.5 % CERNER Comment: Interpretive Data Percent cell count reference ranges are not reported, since discordance with absolute values may lead to misinterpretation of CBC data. Current Interpretive Data was last revised on 2017. Testing performed by: [facility] [place] [address] Monocyte pct 6.5 % CERNER Comment: Interpretive Data Percent cell count reference ranges are not reported, since discordance with absolute values may lead to misinterpretation of CBC data. Current Interpretive Data was last revised on 2017. Testing performed by: [facility] [place] [address] Eosinophil pct 3.4 % CERNER Comment: Interpretive Data Percent cell count reference ranges are not reported, since discordance with absolute values may lead to misinterpretation of CBC data. Current Interpretive Data was last revised on 2017. Testing performed by: [facility] [place] [address] Basophil pct 0.5 % CERNER Comment: Interpretive Data Percent cell count reference ranges are not reported, since discordance with absolute values may lead to misinterpretation of CBC data. Current Interpretive Data was last revised on 2017. Testing performed by: [facility] [place] [address] Blood 12/17/2024 10:0 2 AM CDT 12/17/2024 10:02 AM CDT us Brennen Maldonado MD LAB BLOOD ORDERABLES Fin al Result [facility] [address] Department [place] [address] * (ABNORMAL) CBC with auto differential (12/17/2024 10:02 AM CDT) WBC 11.01(H) 3.80 - 9.90 K/cumm Comment:Testing performed by : [facility] [place] [address] Hgb 10.5(L) 11.9 - 15.5 g/dL CERNER CH Comment:Testing performed by : [facility] [place] [address] Hct 33.7(L) 35.6 - 45.5 % CERNER CH Comment:Testing performed by : [facility] [place] [address] Plt 263 150 - 400 K/cumm CERNER CH Comment:Testing performed by : [facility] [place] [address] MPV 9.5 9.1 - 12.3 fL CERNER CH Comment:Testing performed by : [facility] [place] [address] RBC 4.47 3.90 - 5.20 M/cumm CERNER CH Comment:Testing performed by : [facility] [place] [address] MCV 75.4(L) 81.3 - 96.4 fL CERNER CH Comment:Testing performed by : [facility] [place] [address] MCH 23.5(L) 27.1 - 33.3 pg CERNER CH Comment:Testing performed by : [facility] [place] [address] MCHC 31.2(L) 32.3 - 35.7 g/dL CERNER CH Comment:Testing performed by : [facility] [place] [address] RDW CV 15.3(H) 11.1 - 14.9 % CERNER CH Comment:Testing performed by : [facility] [place] [address] RDW SD 41.9 35.7 - 48.1 fL CERNER CH Comment:Testing performed by : [facility] [place] [address] NRBC abs 0.00 0.00 - 0.01 K/cumm CERNER CH Comment:Testing performed by : [facility] [place] [address] ANC Prelim 7.57(H) 1.50 - 6.50 K/cumm [facility] JOHN Comment: Interpretive Data The rapid ANC is a preliminary automated count and may vary from the final ANC (Neut Abs) reported in the WBC differential that follows. Current interpretive data was last revised 2024. Testing performed by: [facility] [place] [address] Blood 12/17/2024 10:0 2 AM CDT 12/17/2024 10:02 AM CDT us Brennen Maldonado MD LAB BLOOD ORDERABLES Fin al Result [facility] [address] Department [place] [address] * (ABNORMAL) Comprehensive metabolic panel (12/17/2024 10:02 AM CDT) Sodium 141 135 - 145 mmol/L Comment:Testing performed by : [facility] [place] [address] Potassium, pl 4.9 3.3 - 4.9 mmol/L ROSHNI Comment:Testing performed by : [facility] [place] [address] Chloride 104 97 - 110 mmol/L ROSHNI Comment:Testing performed by : [facility] [place] [address] CO2 24 22 - 32 mmol/L ROS[facility]NI CH Comment:Testing performed by : [facility] [place] [address] Anion gap 13 2 - 15 mmol/L ROSHNI Comment:Testing performed by : [facility] [place] [address] BUN 13 6 - 25 mg/dL ROS[facility]NI CH Comment:Testing performed by : [facility] [place] [address] Creatinine 1.23(H) 0.60 - 1.10 mg/dL ROSHNI CH Comment:Testing performed by : [facility] [place] [address] Glucose 94 70 - 199 mg/dL ROSHNI CH Comment: Interpretive Data Fasting glucose >/= [...] Current interpretive data was last revised 2022. Testing performed by: [facility] [place] [address] Calcium 9.4 8.5 - 10.3 mg/dL CERNER CH Comment:Testing performed by : [facility] [place] [address] Bilirubin, total 0.4 0.1 - 1.2 mg/dL CERNER CH Comment:Testing performed by : [facility] [place] [address] Protein, pl 7.0 6.5 - 8.5 g/dL CERNER CH Comment:Testing performed by : [facility] [place] [address] Albumin 4.2 3.5 - 5.0 g/dL CERNER CH Comment:Testing performed by : [facility] [place] [address] Alk phos 83 40 - 130 Units/L CERNER CH Comment:Testing performed by : [facility] [place] [address] ALT 10 7 - 45 Units/L CERNER CH Comment:Testing performed by : [facility] [place] [address] AST 15 10 - 45 Units/L CERNER CH Comment:Testing performed by : [facility] [place] [address] Blood 12/17/2024 10:0 2 AM CDT 12/17/2024 10:02 AM CDT us Brennen Maldonado MD LAB BLOOD ORDERABLES Fin al Result [facility] [address] Department [place] [address] * [place] CRITICAL CARE ILL/INJURED PATIENT INIT 30-74 MIN (10/22/2024 10:45 AM UTILITY SALES REPRESENTATIVE) Narrative Masood Gibson MD - 10/22/2024 10:45 AM UTILITY SALES REPRESENTATIVE Masood Gibson MD 11/04/2024 7:33 PM Critical [...] Result * POCT glucose (10/22/2024 8:54 AM UTILITY SALES REPRESENTATIVE) Glucose, POC 87 70 - 199 mg/dL Blood 10/22/2024 8:54 AM UTILITY SALES REPRESENTATIVE 10/22/2024 8:54 AM UTILITY SALES REPRESENTATIVE us Masood Gibson MD LAB POCT ORDERABLES - SUKH CE Final Result [facility] [address] Department [place] [address] * CT Abdomen Pelvis W Contrast (10/22/2024 8:46 AM UTILITY SALES REPRESENTATIVE) Anatomical Region Laterality Modality Body N/A Computed Tomogra phy 10/22/2024 9:20 AM UTILITY SALES REPRESENTATIVE Impressions 10/22/2024 9:20 AM UTILITY SALES REPRESENTATIVE NO ACUTE INTRA-ABDOMINAL FINDINGS Electronically signed by: Larry Eng M.D. Narrative 10/22/2024 9:20 AM UTILITY SALES REPRESENTATIVE EXAMINATION: CT ABDOMEN PELVIS W CONTRAST DATE: [...] microscopic and culture Urine (10/22/2024 8:34 AM UTILITY SALES REPRESENTATIVE) Color, ur Yellow Yellow Clarity, ur Clear [...] for uric acid stone formation. Source: [facility] [employer] Current Interpretive Data was last revised on [...] met. CERNER CH Urine 10/22/2024 8:34 AM UTILITY SALES REPRESENTATIVE 10/22/2024 8:39 AM UTILITY SALES REPRESENTATIVE Masood Gibson MD LAB MICROBIOLOGY - GENERAL ORDERABLES Final Result [facility] [address] Department [place] [address] * (ABNORMAL) Respiratory pathogen panel Nasopharyngeal (10/22/2024 8:04 AM UTILITY SALES REPRESENTATIVE) Pathologist [facility] Influenza A RNA Not Detected Not Detected Influenza B RNA Not Detected Not Detected CERNER CH RSV RNA Not Detected Not Detected CERNER COVID-19 RNA Detected(A) Not Detected CERNER Coronavirus 229E RNA Not Detected Not Detected CERNER Coronavirus HKU1 RNA Not Detected Not Detected CERNER Coronavirus NL63 RNA Not Detected Not Detected CERNER Coronavirus OC43 RNA Not Detected Not Detected CERNER Adenovirus DNA Not Detected Not Detected CERNER Metapneumovirus RNA Not Detected Not Detected CERNER Rhinovirus/Enterov irus RNA Not Detected Not Detected CERNER Parainfluenza 1 RNA Not Detected Not Detected CERNER Parainfluenza 2 RNA Not Detected Not Detected CERNER Parainfluenza 3 RNA Not Detected Not Detected CERNER Parainfluenza 4 RNA Not Detected Not Detected CERNER B. pertussis DNA Not Detected Not Detected [facility]. parapertussis DNA Not Detected Not Detected [facility] C. pneumoniae DNA Not Detected Not Detected CERNER M. pneumoniae DNA Not Detected Not Detected CERNER Comment: Interpretive Data The SimpleRelevance FilmArray Respiratory Panel (RP2.1) assay is a [...] assay has FDA clearance for testing of SENIOR ECONOMIST swabs. The performance characteristics of this assay have been determined by [facility]. Current interpretive data was last revised on 2021. Nasopharyngeal 10/22/2024 8: 04 AM UTILITY SALES REPRESENTATIVE 10/22/2024 8:06 AM UTILITY SALES REPRESENTATIVE Narrative ROSH[facility] JOHN - 10/22/2024 9:05 AM UTILITY SALES REPRESENTATIVE Is the Patient experiencing symptoms consistent with COVID?->Yes Surveillance testing for transplant patient?->No us Masood Gibson MD LAB MICROBIOLOGY - GENERAL ORDERABLES Final Result [facility] [address] Department [place] [address] CH * Troponin T high-sensitivity 2-hour (10/22/2024 1:59 AM UTILITY SALES REPRESENTATIVE) Trop T hs 11 <=14 ng/L Comment: Interpretive Data For further hscTnT resources including the diagnostic algorithm and an aid in interpretation, copy and paste this link: https://nrl.testcatalog.org/show/hsTrop Current Interpretive Data last revised 2020. Trop T hs delta 0 ng/L CERNER CH Trop T hs interp Insignificant CERNER CH Blood 10/22/2024 1:59 AM UTILITY SALES REPRESENTATIVE 10/22/2024 2:02 AM UTILITY SALES REPRESENTATIVE Osbaldo Cade MD LAB BLOOD ORDERABLES Final Result Performing Organization Address [facility] Co de Phone Number [facility] [address] Department [place] [address] * Lipase (10/22/2024 1:59 AM UTILITY SALES REPRESENTATIVE) Lipase 40 10 - 99 Units/L Blood 10/22/2024 1:59 AM UTILITY SALES REPRESENTATIVE 10/22/2024 2:02 AM UTILITY SALES REPRESENTATIVE Robin GLORIA LAB BLOOD ORDERABLES Final Result Performing Organization Address [facility] Co de Phone Number [facility] [address] Department of [employer] [address] * XR Chest 1 Vw Portable (10/22/2024 12:40 AM UTILITY SALES REPRESENTATIVE) Anatomical Region Laterality Modality Body, Chest N/A Computed Radiogr aphy 10/22/2024 9:01 AM UTILITY SALES REPRESENTATIVE Impressions 10/22/2024 9:01 AM UTILITY SALES REPRESENTATIVE No acute cardiopulmonary findings. Electronically signed by: Danie Betancourt II, D.O. Narrative 10/22/2024 9:01 AM UTILITY SALES REPRESENTATIVE EXAMINATION: XR CHEST 1 VIEW DATE: 10/22/2024 [...] (baseline, 2hr, 4hr, 6hr) (10/21/2024 11:34 PM UTILITY SALES REPRESENTATIVE) Trop T hs 11 <=14 ng/L Comment: Interpretive Data For further hscTnT resources including the diagnostic algorithm and an aid in interpretation, copy and paste this link: https://nrl.testcatalog.org/show/hsTrop Current Interpretive Data last revised 2020. Blood 10/21/2024 11:3 4 PM UTILITY SALES REPRESENTATIVE 10/21/2024 11:39 PM UTILITY SALES REPRESENTATIVE us Osbaldo Cade MD LAB BLOOD ORDERABLES Final Result Performing Organization Address City/State/ZIP Co me Phone Number [facility] [address] Department [place] [address] * eGFR (10/21/2024 11:34 PM UTILITY SALES REPRESENTATIVE) eGFR 71 >=60 mL/min/1. 73 m2 Comment: [...] reviewed 2021. Blood 10/21/2024 11:3 4 PM UTILITY SALES REPRESENTATIVE 10/21/2024 11:39 PM UTILITY SALES REPRESENTATIVE us Osbaldo Cade MD LAB BLOOD ORDERABLES Final Result [facility] [address] Department [place] [address] * Differential, auto (10/21/2024 11:34 PM UTILITY SALES REPRESENTATIVE) Neutrophil abs 5.3 1.5 - 6.5 K/cumm Imm gran abs 0.0 0.0 - 0.1 K/cumm CERNER CH Lymphocyte abs 3.3 0.8 - 3.3 K/cumm [facility] Monocyte abs 0.7 0.2 - 0.8 K/cumm [facility] Eosinophil abs 0.3 0.0 - 0.5 K/cumm [facility] Basophil abs 0.0 0.0 - 0.1 K/cumm [facility] Neutrophil pct 54.8 % [facility] Comment: Interpretive Data Percent cell count reference ranges are not reported, since discordance with absolute values may lead to misinterpretation of CBC data. Current Interpretive Data was last revised on 2017. Imm gran pct 0.3 % ROS[facility]NI Comment: Interpretive Data Percent cell count reference ranges are not reported, since discordance with absolute values may lead to misinterpretation of CBC data. Current Interpretive Data was last revised on 2017. Lymphocyte pct 34.3 % [facility] Comment: Interpretive Data Percent cell count reference ranges are not reported, since discordance with absolute values may lead to misinterpretation of CBC data. Current Interpretive Data was last revised on 2017. Monocyte pct 7.1 % [facility] Comment: Interpretive Data Percent cell count reference ranges are not reported, since discordance with absolute values may lead to misinterpretation of CBC data. Current Interpretive Data was last revised on 2017. Eosinophil pct 3.3 % [facility] Comment: Interpretive Data Percent cell count reference ranges are not reported, since discordance with absolute values may lead to misinterpretation of CBC data. Current Interpretive Data was last revised on 2017. Basophil pct 0.2 % [facility] Comment: Interpretive Data Percent cell count reference ranges are not reported, since discordance with absolute values may lead to misinterpretation of CBC data. Current Interpretive Data was last revised on 2017. Blood 10/21/2024 11:3 4 PM UTILITY SALES REPRESENTATIVE 10/21/2024 11:39 PM UTILITY SALES REPRESENTATIVE us Osbaldo Cade MD LAB BLOOD ORDERABLES Final Result [facility] [address] Department [place] [address] * (ABNORMAL) CBC with auto differential (10/21/2024 11:34 PM UTILITY SALES REPRESENTATIVE) WBC 9.7 3.8 - 9.9 K/cumm Hgb 10.0(L) 11.9 - 15.5 g/dL [facility] Hct 32.4(L) 35.6 - 45.5 % [facility] Plt 242 150 - 400 K/cumm [facility] MPV 10.0 9.1 - 12.3 fL [facility] RBC 4.38 3.90 - 5.20 M/cumm [facility] MCV 74.0(L) 81.3 - 96.4 fL [facility] MCH 22.8(L) 27.1 - 33.3 pg [facility] MCHC 30.9(L) 32.3 - 35.7 g/dL [facility] RDW CV 15.4(H) 11.1 - 14.9 % [facility] RDW SD 41.5 35.7 - 48.1 fL [facility] NRBC abs 0.00 0.00 - 0.01 K/cumm [facility] Blood 10/21/2024 11:3 4 PM UTILITY SALES REPRESENTATIVE 10/21/2024 11:39 PM UTILITY SALES REPRESENTATIVE us Osbaldo Cade MD LAB BLOOD ORDERABLES Final Result [place] [address] [address] Department of Laboratories [place] [phone] * Comprehensive metabolic panel (10/21/2024 11:34 PM UTILITY SALES REPRESENTATIVE) Pathologist [facility] Sodium 139 135 - 145 mmol/L Potassium, [...] [place] CH Blood 10/21/2024 11:3 4 PM UTILITY SALES REPRESENTATIVE 10/21/2024 11:39 PM UTILITY SALES REPRESENTATIVE Osbaldo Cade MD LAB BLOOD ORDERABLES Final Result Performing Organization Address City/[facility] Co de Phone Number RACHELLLYDIA [address] [address] Department [place] [address] * ECG 12 lead (10/21/2024 11:29 PM UTILITY SALES REPRESENTATIVE) 10/21/2024 11:2 9 PM UTILITY SALES REPRESENTATIVE Narrative [facility] - 10/22/2024 11:20 AM UTILITY SALES REPRESENTATIVE Vent Rate: 61 bpm RR Interval: 982 msec FL Interval: 194 msec QRS Duration: 101 msec QT Interval: 390 msec QTC Interval: 392 msec P-R-T [place]: 31 - 0 - 51 degrees IMPRESSION: SINUS RHYTHM NORMAL ECG Electronically Signed By: Isac Souza MD Osbaldo Cade MD ECG ORDERABLES Final Resul t Performing Organization Address [facility] Co de Phone Number [facility] * Lipid panel (01/20/2019 2:19 AM CDT) [...] ORDERABLES Final Resu lt Performing Organization Address [facility] Co de Phone Number ROSHNI [address] [address] Department [place] [address] * (ABNORMAL) Hemoglobin A1c (12/31/2018 1:30 PM CDT) Hgb A1C 7.6(H) 4.0 - 5.6 % ROSHNI Estimated Average Glucose 171 mg/dL ROSHNI JOHN Comment: The ADA recommends reporting an estimated Average Glucose (eAG) with all Hemoglobin A1c results using the equation derived from a study of 507 normal and diabetic adults. Minority populations were underrepresented and children were not included. (Diabetes Care 31:5068-2622, 2008). The eAG is not equivalent to a fasting glucose. Blood specimen (specimen) 12/31/2018 1:30 PM CDT 12/31/2018 3:16 PM CDT Narrative ROSHNI JOHN - 12/31/2018 5:03 PM CDT Jeremias Grewal MD LAB BLOOD ORDERABLES Final R esult Performing Organization Address [facility] Co de Phone Number [facility] [address] [address] Department [place] [address] from Last 3 Months or Most Recently Relevant to Health Maintenance Additional Health Concerns Infection Onset Date Last Indicated COVID: Recovered Comment:Added based on recent COVID infection. 11/01/2024 025 Insurance MEDICARE [facility] MEDICARE [employer] [place] MEDICARE MEDICARE [facility] Advance Directives For more information, please contact: [phone] * Full Code (Latest Code Status on File) Date Activated Date Inactivated Comments 01/29/2019 6:44 PM 02/08/2019 10:55 PM * Full Code Date Activated Date Inactivated Comments 01/18/2019 2:27 PM 01/29/2019 6:14 PM Care Teams [employer]aper Delive[employer] Relationship Specialty Start Date End Date Maurice Daniels MD PCP - General 12/05/17 Jeremias Grewal MD Surgeon Cardiothoracic Surgery 10/07/19 Brennen Maldonado MD [address] [place] [address] Consulting Physician Hematology and Oncology 05/18/23 Alonso Antunez DNP [address] [place] [address] Nurse Practitioner Hematology and Oncology 05/18/23 Dejuan Butterfield MD [address] [facility] [address] [place] [address] Referring Physician Ophthalmology 01/11/24 John Avila MD [address] [facility] [address] [place], [place] [id number] Referring Physician Obstetrics and Gynecology 05/27/24 Vin Oliver MD [address] [place] [address] Referring Physician Psychiatry 05/27/24 [place] [address] [facility] [address] [place] [address] Consulting Physician Cardiology 05/27/24 Prabhu Harp NP [address] [facility] [address] [place], [place] [id number] Nurse Practitioner Sleep Medicine 05/27/24 Ary Spangler OT [address] [facility] [address] [place] [address] Occupational Therapist Occupational Therapy 09/10/24
--- OUTSIDE RECORDS SUMMARY | 2024-12-26 00:43 | XMS_ITS | Continuity of Care Document ---
Author Organization [place] [facility], [facility] Internal Med [facility] Address [address] [facility] [place] [place] [address] Care Team Providers Care Cushion Filler Name Role Phone ANABELLA DANIELS Primary Care Provider [phone] ANABELLA DANIELS Referring Provider [phone] [facility] Embedded Nurse HITESH COOPER Flux Mixer [facility] NEURO PSYCHOLOGY Neuropsyc hiatrist THIERNO SHELTON Orthopedic Surgeon MAGGIE VINCENT Net Making Supervisor Assessment No assessment recorded. Plan of Treatment Reminders Order Date Submit Date Provider Last Modified By Organization Details Last Modified Time Details Appointments Any 15 2024 11:00A M Anabella Daniels MD Not available Not available Not available Lab None recorded. Referral nephrolog ist referral - Please call patient to schedule an appointme nt. Thank you. 2024 025 DAISY Cooper MD (Nephrology, [address], [address], [place], [address], 12/25/2024 12:02:06 Procedures None recorded. Surgeries None recorded. Imaging None recorded. Medication Orders None recorded. Patient TargetsNo targets recorded. Patient InstructionsNo instructions recorded. Reason for Referral Equip Tech Referral for Ch ronic kidney disease stage 2 Please call patient to schedule an appointment. Thank you. Referring Physician: Anabella Daniels, Internal Medicine, Encounter Date: 12/25/2024 Results Created Date Observation Date Name Description Value Unit Range Abnormal Flag Note LastModifiedBy Organization Detail LastModifiedTime 12/14/1912/13/2024 gastr ic empty ing study (PROC ) No observ ation record ed. Not Available 2024 10:58:15 Result Notes None recorded. Problems Name Problem SNOMED Code Status Onset Date Resolution Date Notes Provider Name and Address Organization Details Recorded Time Urinary symptoms 304397161 Active 2022 Not Available [employer] 3 06:28:19 Acute urinary tract infection 957327700 Active 2022 Amanda Downing MA null, [facility] 3 14:40:48 Pain of left wrist 46900490571 9102 Active 2023 Anabella Daniels MD [address], [address], [place], [address] , [facility] 4 11:56:21 Osteoporo sis 15811842 Active 2023 Mercedes Calderon LPN null, [facility] 4 10:56:50 Pain of wrist region 20385558 Active 2023 Juli Richter MA null, [facility] 4 16:34:26 Tenosynov itis of left radial styloid 26278558883 864263 Active 2023 JUANI Tariq [address], [address], [place], [address] , [facility] 4 09:15:14 Urinary tract infectiou s disease 82960121 Active 2023 Juli Richter MA null, [facility] 4 16:23:21 Idiopathi c periphera l neuropath y 72911462 Active 2023 Diane Serra null, [facility] 4 09:12:18 Pain of left hand 31248111391 9103 Active 2023 JUANI Tariq [address], [address], [place], [address] , [facility] 4 09:17:05 Claustrop hobia 60591371 Active 2023 Juli Richter MA null, [place] [facility] 4 11:48:35 Infection of skin 646093436 Active 2023 Anabella Daniels MD [address], [address], [place], [address] , [facility] 4 10:43:17 Coronary arteriosc lerosis 83862377 Active 2023 Anabella Daniels MD [address], [facility] [address], [place], [address] , [facility] - [facility] 4 10:48:58 Nausea 160108751 Active 2023 Juli Richter MA null, [place] [facility] 4 14:07:03 Sensorine ural hearing loss 22458125 Active 2023 Freeman Cooley CMA null, [place] [facility] 4 15:23:08 Dysfuncti on of bilateral eustachia n tubes 05884858214 80404 Active 2023 DIAZ Morrell [address], [place] [address], [place], [address] , [facility] 4 15:25:15 Referred otalgia 53011004 Active 2023 Dali Carrera null, [facility] 4 11:54:53 Dysfuncti on of eustachia n tube 62267763 Active 2023 Maggie Vincent MD [address], [address], [place], [address] , [facility] 4 12:58:59 Allergic rhinitis 25756928 Active 2024 Dali Carrera null, [place] [facility] 5 11:46:51 Pain in throat 378131661 Active 2024 Dali Deandre rey, [place] [facility] 5 11:46:51 Dysfuncti on of eustachia n tube 27966228 Active 2024 Dali Brennanlane rey, [place] [facility] 5 11:55:41 Nausea and vomiting 48922673 Active 2024 Anabella Daniels MD [address], [address], [place], [address] , [facility] 5 16:24:18 Chronic kidney disease stage 2 108567767 Active 2024 Anabella Daniels MD [address], [address], [place], [address] , [facility] 5 11:09:14 Edema of lower extremity 611107981 Completed 201701/01/2018 Not Available [facility] 3 04:53:25 Acute bronchiti s 95860703 Completed Not Available [facility] 3 04:53:25 Pain in lower limb 62284362 Completed Not Available [facility] 3 04:53:25 Injury of lower limb 094576429 Completed Not Available [facility] 3 04:53:25 External hordeolum 3095799 Completed Not Available [facility] 3 04:53:25 Acquired trigger finger 3590972 Completed Not Available [facility] 3 04:53:25 Acute sinusitis 92841087 Active 2021 Not Available [facility] 3 06:28:19 Radiother apy follow-up 772135423 Completed Not Available [facility] 3 04:53:25 Insomnia 331228855 Active Not Available [facility] 3 06:28:19 Asthma 359572281 Active Not Available [facility] 3 06:28:19 Non-alcoh olic fatty liver 658218673 Active Not Available [facility] 3 06:28:19 Steatotic liver disease 543531858 Completed 202002/04/2022 Not Available [facility] 3 04:53:26 Steatotic liver disease 201201948 Completed Not Available [facility] 3 04:53:26 Abdominal pain 17468549 Completed Not Available [facility] 3 04:53:26 Sciatica 45488826 Active Not Available [facility] 3 06:28:19 Gastroeso phageal reflux disease 418731151 Active Not Available [facility] 3 06:28:19 Chafing of skin 015392849 Completed Not Available [facility] 3 04:53:26 Headache 08013670 Completed Not Available [facility] 3 04:53:26 Dyspnea 014004366 Completed Not Available [facility] 3 04:53:26 Edema 872864972 Completed 201802/04/2022 Not Available [facility] 3 04:53:27 Adult health examinati on Active 2020 Not Available [facility] 3 06:28:19 Anemia 233929468 Active Not Available [facility] 3 06:28:19 Low back pain 596087173 Completed Not Available [facility] 3 04:53:27 Knee pain Completed Not Available [facility] 3 04:53:27 Osteopeni a 197328366 Active 2018 Not Available [facility] 3 06:28:19 Changing color of pigmented skin lesion 713004268 Active Not Available [facility] 3 06:28:19 Pain of left hip joint 56280084556 9100 Active 2022 Not Available [facility] 3 06:28:19 Vitamin D deficienc y 56174039 Active 2018 Not Available [facility] 3 06:28:19 Depressiv e disorder 09900856 Active Not Available [facility] 3 06:28:19 Heart valve disorder 751757 Active Not Available [facility] 3 06:28:19 Sinusitis 90909179 Completed Not Available [facility] 3 04:53:28 Hypertens celestino disorder 08838605 Active Not Available [facility] 3 06:28:19 Memory impairmen t 813782447 Completed Not Available [facility] 3 04:53:29 Osteoarth ritis 955850012 Active Not Available [facility] 3 06:28:19 Thalassem ia 17679081 Active Not Available [facility] 3 06:28:19 Dizziness 892154832 Completed Not Available [facility] 3 04:53:29 Dysphagia 81636491 Active 2021 Not Available [facility] 3 06:28:19 Obesity 713907707 Active Not Available [facility] 3 06:28:19 Nausea 481249626 Completed TOMMY Reina, [facility] [employer] [facility] 4 14:07:03 Diabetic periphera l neuropath y 865232199 Active Not Available [facility] 3 06:28:19 History of mastectom y 998609807 Active 2018 Not Available [facility] 3 06:28:19 Family history of malignant neoplasm of brain 760828594 Completed 201802/04/2022 Not Available [facility] 3 04:53:30 Acute urinary tract infection 699334471 Completed 202106/02/2022 TOMMY Mason, [facility] [employer] [facility] 3 14:40:48 Acute urinary tract infection 163345216 Completed TOMMY Mason, [facility] [employer] [facility] 3 14:40:48 Pain of shoulder region 12365499 Completed Not Available [facility] 3 04:53:31 Acute conjuncti vitis 34077091 Completed Not Available [facility] 3 04:53:31 Upper respirato ry infection 50912104 Completed Not Available [facility] 3 04:53:31 Hyperlipi demia 72606658 Active Not Available [facility] 3 06:28:19 Disorder of bursa of shoulder region 32024982 Completed Not Available [facility] 3 04:53:32 Essential hypertens ion 09886926 Active Not Available [facility] 3 06:28:19 Aortic valve stenosis 91191949 Active Not Available [facility] 3 06:28:19 Diarrhea 29266600 Completed Not Available [facility] 3 04:53:32 Carotid artery stenosis 78226992 Active 2018 Not Available [facility] 3 06:28:20 Urinary tract infectiou s disease 74302285 Completed TOMMY Reina, [facility] [employer] [facility] 4 16:23:21 Candidias is of vagina 56633100 Completed 202106/02/2022 Not Available [facility] 3 04:53:33 Diabetes mellitus 52773352 Active Not Available [facility] 3 06:28:20 Sleep apnea 08870028 Active Not Available [facility] 3 06:28:20 Urgent desire to urinate 33324385 Completed Not Available [facility] 3 04:53:34 Neck pain 16282548 Completed Not Available [facility] 3 04:53:34 Fatigue 29147751 Completed 202002/04/2022 Not Available [facility] 3 04:53:34 Chronic rhinitis 95437413 Active Not Available [facility] 3 06:28:20 Heart murmur 37518549 Active Not Available [facility] 3 06:28:[address]-assoc iated gastritis 23139726 Active Not Available [facility] 3 06:28:20 Problem Notes None recorded. Procedures Surgical History Date Name Laterality Status Provider Name and Address Organization Details Recorded Time 07/04/20 24 Medicare Wellness CPT Code, subsequent completed JOSE Pacheco [place] [employer] [facility] 07/04/2024 12:20:03 07/04/20 24 Advanced Care Planning completed JOSE Pacheco [facility] [employer] [facility] 07/04/2024 12:23:37 06/10/20 24 Ortho - Cortisone Injection completed Paige Lee, CYBER OPERATOR [address] [facility], [facility] [address], [place], [address], [place] [facility] [place] [facility] 06/10/2024 11:17:39 03/18/20 22 Date of Last Colonoscopy completed Not Available [facility] 10/19/2022 04:43:18 01/19/20 19 replacement of aortic valve completed Ruth Pedro, MICA PATCH[employer] [place] [facility] 04/12/2023 15:30:13 03/17/20 17 Incise finger tendon sheath completed Not Available [facility] 10/19/2022 04:43:22 12/18/19 16 Most Recent Bone Density completed Not Available [facility] 10/19/2022 04:43:18 10/20/19 08 endoscopic retrograde pancreatography completed Ruth Pedro, [employer] P[employer] [place] [facility] 04/12/2023 15:32:01 07/21/20 06 reduction of batwing arms completed Ruth Pedro, [employer] P[employer] [place] [facility] 04/12/2023 15:35:33 06/21/20 06 Breast Biopsy completed Ruth Pedro, [employer] [facility] [place] [facility] 04/12/2023 15:36:40 05/21/20 06 biopsy of liver completed Ruth Pedro, [employer] [place] [facility] [place] [facility] 04/12/2023 15:34:13 03/21/20 04 cholecystectomy completed Ruth Pedro, [employer] P[employer] [facility] [place] [facility] 04/12/2023 15:37:06 08/21/18 79 Eye Surgery completed Ruth Pedro, [employer] P[employer] [place] [facility] [place] [facility] 04/12/2023 15:37:26 colonoscopy completed Not Available [facility] 10/19/2022 04:43:22 Cardiovascular Surgery completed Ruth Pedro, MICA PATCH[facility] [place] [facility] 04/12/2023 15:33:16 Breast Surgery completed Not Available [facility] 10/19/2022 04:43:22 RESIDENTIAL MORTGAGE UNDERWRITER Surgery completed Not Available [facility] 10/19/2022 04:43:22 Carpal tunnel surgery completed Not Available [facility] 10/19/2022 04:43:22 Imaging Results None recorded. Procedure Notes None recorded. Medical Equipment None Reported. Allergies Allergen ID Allergen Name Allergen Category Reaction Reaction Severity Criticality Documentation Date Start Date Code Code System Note Provider Name and Address Organization Details Recorded Time 67498 ciproflox acin medicatio n hallucina tions nausea Not available Not available Not available 12/15/2023 2551 RxNorm Vianca Ruddydrew, JALIL [address] [facility], [facility] [address], [place], [address] , [facility] [employer] [facility] 4 16:52:22 8390 tramadol medicatio n itching Not available Not available 10/19/2022 73176 RxNorm Not Available [facility] 3 05:04:51 8391 Levaquin medicatio n hallucina tions nausea Not available Not available Not available 10/19/2022 12226 2 RxNorm Not Available [facility] 3 05:04:51 Medications Name Sig Start Date [...] Available amoxicill in 500 mg tablet TAKE 4 TABLETS BY MOUTH A SINGLE DOSE 1 HOUR PRIOR TO PROCEDUR E 12/25 completed Not Available Not Available Not Available theophyll ine ER 300 mg tablet,ex [...] TABLET BY MOUTH FOUR TIMES A DAY 12/25 completed tapering off Not Available Not Available Not [...] 4 TIMES PER DAY X 7 DAYS 12/25 completed Not Available Not Available Not Available trazodone 100 mg tablet 10/27 completed Not Available Not Available Not Available [employer] Ultra Test strips USE TO TEST 3 TIMES A DAY 04/12 completed Not Available Not Available Not Available Kenalog 10 mg/mL suspensio n for injection in office 06/17 completed ND: [id number] 4-20 Not Available Not Available Not [...] Not Available propranol ol 20 mg tablet 12/25 completed Not Available Not Available Not Available Cipro [...] and Address Organization Details Last Updated DateTime 5 157.48 cm 35.1 kg/m2 06176.7 4 g 97 [degF] 72 /min 98 % 98 % 110 mm[Hg] 54 mm[Hg] EDE Aviles [place] [facility] 5 10:44:10 Social History Question Answer Notes LastModified by Organization Details LastModified Time Tobacco Smoking Status Never Smoker Not Available [facility] 10/19/2022 04:35:32 Do You Have An Advance Directive? No [email or web address] Information not available 07/04/2024 What Is Your Level Of Alcohol Consumption? None MIGRATION.0301 [id number] Information not available 10/19/2022 Are You Blind Or Do You Have Difficulty Seeing? Yes Glasses, Eye Ex[facility] [place] MIGRATION.0301 [id number] Information not available 10/19/2022 Is Blood Transfusion Acceptable In An Emergency? Yes [email or web address] Information not available 07/04/2024 What Is Your Level Of Caffeine Consumption? Occasional MIGRATION.0301 [id number] Information not available 10/19/2022 How Much Tobacco Do You Chew? None MIGRATION.0301 817491 Information not available 10/19/2022 Are You Currently Employed? No [email or web address] Information not available 07/04/2024 Are You Deaf Or Do You Have Serious Difficulty Hearing? Yes [email or web address] Information not available 07/04/2024 What Type Of Diet Are You Following? REGULAR MIGRATION.030 [id number] Information not available 10/19/2022 Which Illicit Or Recreational Drugs Have You Used? None MIGRATION.030 691076 Information not available 10/19/2022 What Is The Highest Grade Or Level Of School You Have Completed Or The Highest Degree You Have Received? [id number] [email or web address] Information not available 07/04/2024 What Is Your Occupation? Retired MIGRATION.030 [id number] Information not available 10/19/2022 How Many Days Of Moderate To Strenuous Exercise, Like A Brisk Walk, Did You Do In The Last 7 Days? 0 [email or web address] Information not available 07/04/2024 Have There Been Any Changes To Your Family Or Social Situation? Yes 2 Grandchildren Moved In With Her In 2023 [email or web address] Information not available 07/04/2024 What Is The Fluoride Status Of Your Home? Fluoridated MIGRATION.0301 [id number] Information not available 10/19/2022 Are There Any Guns Present In Your Home? No MIGRATION.0301 752801 Information not available 10/19/2022 Do You Use Insect Repellent Routinely? No [email or web address] Information not available 07/04/2024 Where Do You Live? [place] MIGRATION.0301 [id number] Information not available 10/19/2022 Are You Following A Low Salt Diet? No [email or web address] Information not available 07/04/2024 Do You Have A Medical Power Of Soil Analyst? No [email or web address] Information not available 07/04/2024 What Was The Date Of Your Most Recent Tobacco Screening? 07/04/2024 [email or web address] Information not available 07/04/2024 How Many Children Do You Have? 0 [email or web address] Information not available 07/04/2024 Do You Have Any Pets? Yes [email or web address] Information not available 07/04/2024 What Is Your Relationship Status? Single [email or web address] Information not available 07/04/2024 Do You Use Your Seat Belt Or Car Seat Routinely? Yes [email or web address] Information not available 07/04/2024 Are You Sexually Active? No [email or web address] Information not available 07/04/2024 Do You Have Smoke And Carbon Monoxide Detectors In Your Home? Yes MIGRATION.0301 [id number] Information not available 10/19/2022 Are You Passively Exposed To Smoke? No [email or web address] Information not available 07/04/2024 Are There Any Smokers In Your House? No [email or web address] Information not available 07/04/2024 What Types Of Sporting Activities Do You Participate In? None [email or web address] Information not available 07/04/2024 Do You Feel Stressed (tense, Restless, Nervous, Or Anxious, Or Unable To Sleep At Night)? [id number] MIGRATION.0301 [id number] Information not available 10/19/2022 Do You Use Any Illicit Or Recreational Drugs? No [email or web address] Information not available 07/04/2024 Do You Use Sunscreen Routinely? No MIGRATION.[id number] Information not available 10/19/2022 Has Tobacco Cessation Counseling Been Provided? No [email or web address] Information not available 07/04/2024 Have You Recently Traveled Abroad? No [email or web address] Information not available 07/04/2024 Do You Have Any Dietary Restrictions? Yes Should Be On Low Sugar/carb Diet [email or web address] Information not available 07/04/2024 Sex: Female Functional Status Question Answer Note LastModified by Organizat ion Details LastModified Time Do you have difficulty walking or climbing stairs? No MIGRATION.[id number] 026 Information not available 10/19/2022 Do you have transportation difficulties? No [email or web address] Information not available 07/04/2024 Are you able to walk? YESWOREST [email or web address] Information not available 07/04/2024 Do you have difficulty doing errands alone? No MIGRATION.0582705 026 Information not available 10/19/2022 Are you able to care for yourself? Yes [email or web address] Information n ot available 07/04/2024 Do you have difficulty dressing or bathing? No MIGRATION.[id number] 026 Information not available 10/19/2022 What is your exercise level? None [email or web address] Information not available 07/04/2024 Mental Status Question Answer Note LastModified by Organization D etails LastModified Time Do you have difficulty concentrating, remembering or making decisions? Yes [email or web address] Information no t available 07/04/2024 Family History Relationship Description Onset Age of this Age Resolved Age Notes LastModified by Organization Details LastModified Time Mother Malignant neoplasm of lung MIGRATION.505 [id number] Not available 10/19/2022 04:43:24 Mother Malignant tumor of breast MIGRATION.724 [id number] Not available 10/19/2022 04:43:25 Father Heart disease MIGRATION.433 [id number] Not available 10/19/2022 04:43:25 Sister Complication of anesthesia [email or web address] Not available 04/12 15:27:27 Mother Family history of malignant neoplasm [email or web address] Not available 2022 15:27:45 Medical History Condition Response ARTHRITIS Y DIABETES, TYPE Y USE OF BLOOD THINNERS Y BLOOD [...] virus, trivalent, PF 3 completed NIRMAL Allen, [employer] [facility] [employer] [facility] 10/24/2023 10:56:43 Influenza, high-dose, quadrivalent, PF 1 completed Not Available [facility] 04/06/2023 03:45:08 SARS-COV-2 (COVID-19) vaccine, UNSPECIFIED 1 completed NIRMAL Allen, [employer] [facility] 10/24/2023 10:56:43 SARS-COV-2 (COVID-19) vaccine, UNSPECIFIED 1 completed NIRMAL Allen, [employer] [facility] 10/24/2023 10:56:43 SARS-COV-2 (COVID-19) vaccine, UNSPECIFIED 1 completed Not Available [facility] 04/06/2023 03:45:08 Influenza, split virus, quadrivalent, preservative 0 completed Not Available [facility] 04/06/2023 03:45:08 Tdap 1 completed Not Available [facility] 04/06/2023 03:45:08 pneumococcal polysaccharide PPV23 1 completed Not Available [facility] 04/06/2023 03:45:08 pneumococcal polysaccharide PPV23 5 completed Not Available [facility] 04/06/2023 03:45:08 Influenza, split virus, quadrivalent, PF 2 completed Not Available [facility] 04/06/2023 03:45:08 Influenza, split virus, quadrivalent, PF 9 completed Not Available [facility] 04/06/2023 03:45:08 Td (adult), 5 Lf tetanus toxoid, preservative free, adsorbed 9 completed Not Available [facility] 04/06/2023 03:45:08 Influenza, split virus, quadrivalent, PF 8 completed Francheska Hinojosa CMA null, [facility] 10/24/2023 10:56:43 Pneumococcal conjugate PCV 13 6 completed Not Available [facility] 04/06/2023 03:45:08 Influenza, split virus, quadrivalent, preservative 6 completed Not Available [facility] 04/06/2023 03:45:08 Influenza, split virus, quadrivalent, preservative 5 completed Not Available [facility] 04/06/2023 03:45:08 Influenza, split virus, trivalent, preservative 4 completed NIRMAL Allen, [facility] 10/24/2023 10:56:43 Influenza, split virus, quadrivalent, preservative 7 completed Not Available [facility] 04/06/2023 03:45:08 pneumococcal polysaccharide PPV23 4 completed Anabella Daniels MD [address] [place] [address] [address], [address], [facility] 03/04/2024 13:27:44 Past Encounters Encounter ID Performer Location Encounter Start Date Encounter Closed Date Diagnosis/Indication Diagnosis SNOMED-CT Code Diagnosis ICD10 Code Diagnosis Note [id number] Anabella Daniels MD [facility] [place] Internal Med [address] [facility] [place] [address] 12/25/2024 10:34:27 12/25/2024 11:52:09 Diabetes mellitus 75310070 E13.42 under control, Diabetic p eripheral neuropathy 431353961 E11.40 not on gabapentin any more due to side effects Asthma 541461288 J45.90 9 under control Essential hypertension 71146598 I10 under control Carotid ar kecia stenosis 37730805 I65.29 on asa, gets dopplers at cardiology Dysphagia 15108960 R13.1 0 no more symptoms Depressive disorder 3548 9007 F32.9 under control, seeing psych Gastroesop hageal reflux disease 446272498 K21.9 under control with meds Insomnia 896283001 G47.0 0 better with meds Obesity 439900031 E66.9 advised to lose more Osteoarthritis 779483552 M19.90 otc Sleep apnea 58165528 G47 .30 on cpap, compliant Vitamin D deficiency 347 22887 E55.9 otc Chronic rhinitis 0386584 6 J31.0 on montelukas t Adult heal th examination 063503897 Z00.00 Mammogram- both breast removedDex a 11/11Colono scopy 2016PCV 13 [id number] 2005Pneumo vax - 03/04/2024- 3COV ID- 09/22/20, 11/09/20, 05/06/21 Anemia 161239182 D64.9 stable Aortic valve stenosis 60 287080 I35.0 s/p valve replacemen t Hyperlipidemia 73445602 E78.5 stable Non-alcoho lic fatty liver 319877505 K76.0 advised to lose more weight Osteopenia 186256753 M85 .80 on otc Coronary arteriosclerosis 65917405 I25.10 s/p CABG Chronic ki dney disease stage 2 728799209 N18.2 Health Concerns Section Related Observation LastModified by Organization Detai ls LastModified Time None Recorded Concern Status LastModified by Organization Details LastModified Time None Recorded Payers Encounter Date Sequence Insurance Name Policy Number Policy Boo Covered Member ID Boo Member ID Guarantor Name 12/25/2024 1 [place] Sanita A Padillaro [id number] Sanita A Divietro 12/25/2024 2 [facility] (MEDICARE SUPPLEMENT) PLAN F Sanmich A Padillaro [id number] Sanita A Padillaro Notes Date Note Type Note Provider Name and Address Organization Details Recorded Time 5 text/html Pt here today for a follow up. taking meds, no side effectsPT IS FASTING ( Medicare/[facility] ) Dysphagia-had trouble swallowing, had esophagus stretched in 2018, and again [place] [address] Germain, no more symptoms, had EGD in 01/12 Hypertension- on meds, under controlMeds-Losartan 50 mg qd Diabetes- does accu checks some times, running 134 under control watching diet, seeing Dr ChatterjeeA1C- 6.5 in 09/14Meds- Trulicity 0.75 mg/0.5 ML, Metformin [address] [facility] Diabetic Neuropathy- not on gabapentin, symptoms are better, had NCS in the past. Osteopenia- on medsMeds- Alendronate 70mg once a week Insomnia- on meds, helpsMeds- Zolpidem 5 mg @ hs PRN helps GERD- symptoms under controlMeds- Pantoprazole 40 mg bid Depression-, seeing psych dr Burns . anxiety and mood is under control.Meds- Lamotrigine 100 mg HS, Alprazolam 0.5 qid prn , TopiramateObesity- watching diet, has lost 6 hyperlipidemia- on meds, stable labs 09/14Meds- Atorvastatin 40 mg qd Sleep apnea- on [...] graft x 1 in 03/08, no symptoms ,Varicose veins, asymptomatics/p both mastectomy due to recurrent benign tumors and high risk for breast cancer, Thalassemia/ mildanemia- seeing hematology Seeing neurology, had MRI, to get therapy ? 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
--- OUTSIDE RECORDS SUMMARY | 2024-12-26 00:43 | XMS_ITS | Data Portability ---
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 Plan of Treatment [...] MD (Nephrology, [address], [address], [place], [address], 12/25/2024 12:02:06 Procedures upper endoscopy procedure (EGD) (PROC) - Please call patient to schedule. 2024 025 [email or web address] Vin Navarrete MD, [address] [facility] [address], [place], [address], 10/28/2024 08:53:18 Surgeries None recorded. Imaging None recorded. Medication Orders ondansetr on 4 mg disintegr ating tablet 2024 025 [facility] #[id number], [address], [place], [address], 09/11/2024 16:27:00 Patient TargetsNo targets recorded. Patient Instructions Encounter Date Encounter Id Patient Instructions Last Modified By Organization Details Last Modified Time 10/10/2024 [id number] she will have th e PE tubes removed. We discussed this in the office but she reports she is unable to tolerate any pain. 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 Thank you. Referring Physician: Anabella Daniels, Internal Medicine, Encounter Date: 12/25/2024 Results Created Date Observation Date Name Description Value Unit Range Abnormal Flag Note LastModifiedBy Organization Detail LastModifiedTime 12/14/19 25 12/13/2024 gastr ic empty ing study (PROC ) No observ ation record ed. Not Available 2024 10:58:15 Result Notes None recorded. Problems Name Problem SNOMED Code Status Onset Date Resolution Date Notes Provider Name and Address Organization Details Recorded Time Urinary symptoms 582412115 Active 2022 Not Available [facility] 3 06:28:19 Acute urinary tract infection 988435973 Active 2022 Amanda Downing MA null, [employer] 3 14:40:48 Pain of left wrist 06491862157 9102 Active 2023 Anabella Daniels MD [address] [facility] [address], [place], [address] , [employer] 4 11:56:21 Osteoporo sis 93382726 Active 2023 Mercedes Calderon LPN null, [employer] [facility] [employer] 4 10:56:50 Pain of wrist region 10468004 Active 2023 Juli Richter MA null, [place] [facility] 4 16:34:26 Tenosynov itis of left radial styloid 52422009059 326758 Active 2023 JUANI Tariq [address], [address], [place], [address] , [facility] 4 09:15:14 Urinary tract infectiou s disease 29387227 Active 2023 Juli Richter MA null, [place] [facility] 4 16:23:21 Idiopathi c periphera l neuropath y 56851762 Active 2023 Diane Serra null, [facility] 4 09:12:18 Pain of left hand 04497455199 9103 Active 2023 JUANI Tariq [address], [address], [place], [address] , [facility] 4 09:17:05 Claustrop hobia 97766139 Active 2023 Juli Richter MA null, [facility] 4 11:48:35 Infection of skin 272729019 Active 2023 Anabella Daniels MD [address], [address], [place], [address] , [facility] 4 10:43:17 Coronary arteriosc lerosis 18628377 Active 2023 Anabella Daniels MD [address], [address], [place], [address] , [facility] 4 10:48:58 Nausea 670838045 Active 2023 Juli Richter MA null, [facility] 4 14:07:03 Sensorine ural hearing loss 54319270 Active 2023 Freeman Cooley CMA null, [facility] 4 15:23:08 Dysfuncti on of bilateral eustachia n tubes 41753607140 32686 Active 2023 DIAZ Morrell [address], [address], [place], [address] , [facility] 4 15:25:15 Referred otalgia 06759859 Active 2023 Dalievette Carrera null, [facility] 4 11:54:53 Dysfuncti on of eustachia n tube 11632989 Active 2023 Maggie Vincent MD [address], [address], [place], [address] , [facility] 4 12:58:59 Allergic rhinitis 45489886 Active 2024 Dalievette Carrera null, [place] [facility] 5 11:46:51 Pain in throat 779632398 Active 2024 Dali Deandre null, [place] [facility] 5 11:46:51 Dysfuncti on of eustachia n tube 38055915 Active 2024 Dali Deandre null, [place] [facility] 5 11:55:41 Nausea and vomiting 08340218 Active 2024 Anabella Daniels MD [address], [address], [place], [address] , [facility] 5 16:24:18 Chronic kidney disease stage 2 259098618 Active 2024 Anabella Daniels MD [address], [address], [place], [address] , [facility] 5 11:09:14 Edema of lower extremity 017062208 Completed 201701/01/2018 Not Available [facility] 3 04:53:25 Acute bronchiti s 84029728 Completed Not Available [facility] 3 04:53:25 Pain in lower limb 04709657 Completed Not Available [facility] 3 04:53:25 Injury of lower limb 847210341 Completed Not Available [facility] 3 04:53:25 External hordeolum 9048286 Completed Not Available [facility] 3 04:53:25 Acquired trigger finger 9275631 Completed Not Available [facility] 3 04:53:25 Acute sinusitis 17769239 Active 2021 Not Available [facility] 3 06:28:19 Radiother apy follow-up 505167749 Completed Not Available [facility] 3 04:53:25 Insomnia 940836579 Active Not Available [facility] 3 06:28:19 Asthma 472298878 Active Not Available [facility] 3 06:28:19 Non-alcoh olic fatty liver 501686217 Active Not Available [facility] 3 06:28:19 Steatotic liver disease Completed 202002/04/2022 Not Available [facility] 3 04:53:26 Steatotic liver disease Completed Not Available [facility] 3 04:53:26 Abdominal pain 08390134 Completed Not Available [facility] 3 04:53:26 Sciatica 00023939 Active Not Available [facility] 3 06:28:19 Gastroeso phageal reflux disease 394882372 Active Not Available [facility] 3 06:28:19 Chafing of skin 025338471 Completed Not Available [facility] 3 04:53:26 Headache 44393171 Completed Not Available [facility] 3 04:53:26 Dyspnea 650971413 Completed Not Available [facility] 3 04:53:26 Edema 769262069 Completed 201802/04/2022 Not Available [facility] 3 04:53:27 Adult health examinati on Active 2020 Not Available [facility] 3 06:28:19 Anemia 481087758 Active Not Available [facility] 3 06:28:19 Low back pain 644626680 Completed Not Available [facility] 3 04:53:27 Knee pain Completed Not Available [facility] 3 04:53:27 Osteopeni a 334934052 Active 2018 Not Available [facility] 3 06:28:19 Changing color of pigmented skin lesion 842153974 Active Not Available [facility] 3 06:28:19 Pain of left hip joint 90206251165 9100 Active 2022 Not Available [facility] 3 06:28:19 Vitamin D deficienc y 00506329 Active 2018 Not Available [facility] 3 06:28:19 Depressiv e disorder 22509799 Active Not Available [facility] 3 06:28:19 Heart valve disorder 134345 Active Not Available [facility] 3 06:28:19 Sinusitis 33475705 Completed Not Available [facility] 3 04:53:28 Hypertens celestino disorder 02434619 Active Not Available [facility] 3 06:28:19 Memory impairmen t 854615521 Completed Not Available [facility] 3 04:53:29 Osteoarth ritis 249668428 Active Not Available [facility] 3 06:28:19 Thalassem ia 82864603 Active Not Available [facility] 3 06:28:19 Dizziness 168323595 Completed Not Available [facility] 3 04:53:29 Dysphagia 85433406 Active 2021 Not Available [facility] 3 06:28:19 Obesity 133155138 Active Not Available [facility] 3 06:28:19 Nausea 035170591 Completed TOMMY Reina, [place] [facility] [employer] [facility] 4 14:07:03 Diabetic periphera l neuropath y 447582303 Active Not Available [facility] 3 06:28:19 History of mastectom y 823774453 Active 2018 Not Available [facility] 3 06:28:19 Family history of malignant neoplasm of brain 732045374 Completed 201802/04/2022 Not Available [facility] 3 04:53:30 Acute urinary tract infection 468410645 Completed 202106/02/2022 TOMMY Mason, [facility] 3 14:40:48 Acute urinary tract infection 822955705 Completed TOMMY Mason, [facility] 3 14:40:48 Pain of shoulder region 28542446 Completed Not Available [facility] 3 04:53:31 Acute conjuncti vitis 80513041 Completed Not Available [facility] 3 04:53:31 Upper respirato ry infection 33160082 Completed Not Available [facility] 3 04:53:31 Hyperlipi demia 00207422 Active Not Available [facility] 3 06:28:19 Disorder of bursa of shoulder region 32443512 Completed Not Available [facility] 3 04:53:32 Essential hypertens ion 41375937 Active Not Available [facility] 3 06:28:19 Aortic valve stenosis 77905099 Active Not Available [facility] 3 06:28:19 Diarrhea 78091310 Completed Not Available [facility] 3 04:53:32 Carotid artery stenosis 40344915 Active 2018 Not Available [facility] 3 06:28:20 Urinary tract infectiou s disease 93218912 Completed TOMMY Reina, [facility] 4 16:23:21 Candidias is of vagina 34075405 Completed 202106/02/2022 Not Available [facility] 3 04:53:33 Diabetes mellitus 30618099 Active Not Available [facility] 3 06:28:20 Sleep apnea 74509530 Active Not Available [facility] 3 06:28:20 Urgent desire to urinate 12984197 Completed Not Available [facility] 3 04:53:34 Neck pain 19747928 Completed Not Available [facility] 3 04:53:34 Fatigue 11855684 Completed 202002/04/2022 Not Available [facility] 3 04:53:34 Chronic rhinitis 64807071 Active Not Available [facility] 3 06:28:20 Heart murmur 00436326 Active Not Available [facility] 3 06:28:[address]-assoc iated gastritis 54475706 Active Not Available [facility] 3 06:28:20 Problem Notes None recorded. Procedures Surgical History Date Name Laterality Status Provider Name and Address Organization Details Recorded Time 07/04/20 24 Medicare Wellness CPT Code, subsequent completed JOSE Pacheco [employer] 07/04/2024 12:20:03 07/04/20 24 Advanced Care Planning completed JOSE Pacheco [employer] 07/04/2024 12:23:37 06/10/20 24 Ortho - Cortisone Injection completed Paige Lee NP [address], [address], [employer] 06/10/2024 11:17:39 03/18/20 22 Date of Last Colonoscopy completed Not Available [facility] 10/19/2022 04:43:18 01/19/20 19 replacement of aortic valve completed Ruth Vasquez CNA [employer] 04/12/2023 15:30:13 03/17/20 17 Incise finger tendon sheath completed Not Available [facility] 10/19/2022 04:43:22 12/18/19 16 Most Recent Bone Density completed Not Available [facility] 10/19/2022 04:43:18 10/20/19 08 endoscopic retrograde pancreatography completed Ruth Vasquez CNA [employer] 04/12/2023 15:32:01 07/21/20 06 reduction of batwing arms completed Ruth Vasquez CNA [employer] 04/12/2023 15:35:33 06/21/20 06 Breast Biopsy completed Ruth Vasquez CNA [employer] [facility] 04/12/2023 15:36:40 05/21/20 06 biopsy of liver completed Ruth Pedro, [facility] [employer] 04/12/2023 15:34:13 03/21/20 04 cholecystectomy completed Ruth Pedro, [facility] 04/12/2023 15:37:06 08/21/18 79 Eye Surgery completed Ruth Pedro, [facility] 04/12/2023 15:37:26 colonoscopy completed Not Available [facility] 10/19/2022 04:43:22 Cardiovascular Surgery completed Ruth Pedro, [facility] [employer] [facility] 04/12/2023 15:33:16 Breast Surgery completed Not Available [facility] 10/19/2022 04:43:22 MISSIONARY COORDINATOR Surgery completed Not Available [facility] 10/19/2022 04:43:22 Carpal tunnel surgery completed Not Available [facility] 10/19/2022 04:43:22 Imaging Results Imaging Date Name Status LastModified by Organiz ation Details LastModified Time 12/13/2024 gastric emptying study (PROC) [email or web address] Information not available 12/25/2024 10:58:15 Procedure Notes None recorded. Medical Equipment None Reported. Allergies Allergen ID Allergen Name Allergen Category Reaction Reaction Severity Criticality Documentation Date Start Date Code Code System Note Provider Name and Address Organization Details Recorded Time 91085 ciproflox acin medicatio n hallucina tions nausea Not available Not available Not available 12/15/2023 2551 RxNorm Vianca Hall NP [address] [facility] [address], [place], [address] [place] [address] [facility] 4 16:52:22 8390 tramadol medicatio n itching Not available Not available 10/19/2022 45974 RxNorm Not Available [facility] 3 05:04:51 8391 Levaquin medicatio n hallucina tions nausea Not available Not available Not available 10/19/2022 74278 2 RxNorm Not Available [facility] [...] Available Not Available Not Available OneTouch Ultra Test strips USE TO TEST 3 TIMES A DAY 04/12 completed Not Available Not Available Not Available Kenalog 10 mg/mL suspensio n for injection in office 06/17 completed [facility]: [id number] 4-20 Not Available Not Available Not [...] Updated DateTime 08/27/2024 157.48 cm 38.5 kg/m2 59882.83 g 97.7 [degF] Effie Mcpherson RN [facility] [employer] [facility] 08/27/2024 10:54:41 Date Recorded Body height Body mass index (BMI) Body weight Body temperature Heart rate Oxygen saturation Oxygen saturation in Arterial blood by Pulse oximetry Systolic blood pressure Diastolic blood pressure Provider Name and Address Organization Details Last Updated DateTime 157.48 cm 37.9 kg/m2 36126.6 2 g 97.2 [degF] 77 /min 98 % 98 % 130 mm[Hg] 58 mm[Hg] EDE Aviles [facility] [employer] [facility] 16:00:19 Date Recorded Body height Body mass index (BMI) Body weight Body temperature Provider Name and Address Organization Details Last Updated DateTime 10/10/2024 157.48 cm 36.2 kg/m2 60456.29 g 97.7 [degF] Effie Mcpherson RN [facility] [employer] [facility] 10/10/2024 14:05:17 Date Recorded Body height Provider Name an d Address Organization Details Last Updated DateTime 11/07/2024 157.48 cm Maggie Vincent MD [address], [address], [facility] [employer] 11/07/2024 12:39:10 Date Recorded Body height Body mass index (BMI) Body weight Body temperature Heart rate Oxygen saturation Oxygen saturation in Arterial blood by Pulse oximetry Systolic blood pressure Diastolic blood pressure Provider Name and Address Organization Details Last Updated DateTime 157.48 cm 35.1 kg/m2 42871.7 4 g 97 [degF] 72 /min 98 % 98 % 110 mm[Hg] 54 mm[Hg] [employer] [facility] [employer] 10:44:10 Social History Question Answer Notes LastModified by Organization Details LastModified Time Tobacco Smoking Status Never Smoker Not Available [employer] 10/19/2022 04:35:32 Do You Have An Advance Directive? No [email or web address] Information not available 07/04/2024 What Is Your Level Of Alcohol Consumption? None [id number] [id number] Information not available 10/19/2022 Are You Blind Or Do You Have Difficulty Seeing? Yes Glasses, [facility] MIGRATION.0301 [id number] Information not available 10/19/2022 Is Blood Transfusion Acceptable In An Emergency? Yes [email or web address] Information not available 07/04/2024 What Is Your Level Of Caffeine Consumption? Occasional MIGRATION.0301 [id number] Information not available 10/19/2022 How Much Tobacco Do You Chew? None MIGRATION.0301 [id number] Information not available 10/19/2022 Are You Currently Employed? No [email or web address] Information not available 07/04/2024 Are You Deaf Or Do You Have Serious Difficulty Hearing? Yes [email or web address] Information not available 07/04/2024 What Type Of Diet Are You Following? REGULAR MIGRATION.0301 [id number] Information not available 10/19/2022 Which Illicit Or Recreational Drugs Have You Used? None MIGRATION.0301 [id number] Information not available 10/19/2022 What Is The Highest Grade Or Level Of School You Have Completed Or The Highest Degree You Have Received? [id number] [email or web address] Information not available 07/04/2024 What Is Your Occupation? Retired MIGRATION.0301 [id number] Information not available 10/19/2022 How Many Days Of Moderate To Strenuous Exercise, Like A Brisk Walk, Did You Do In The Last 7 Days? 0 [email or web address] Information not available 07/04/2024 Have There Been Any Changes To Your Family Or Social Situation? Yes 2 Grandchildren Moved In With Her In 2023 [email or web address] Information not available 07/04/2024 What Is The Fluoride Status Of Your Home? Fluoridated MIGRATION.0301 [id number] Information not available 10/19/2022 Are There Any Guns Present In Your Home? No MIGRATION.0301 [id number] Information not available 10/19/2022 Do You Use Insect Repellent Routinely? No [email or web address] Information not available 07/04/2024 Where Do You Live? [place] MIGRATION.0301 [id number] Information not available 10/19/2022 Are You Following A Low Salt Diet? No [email or web address] Information not available 07/04/2024 Do You Have A Medical Power Of Breastfeeding Program Coordinator? No [email or web address] Information not available 07/04/2024 What Was The Date Of Your Most Recent Tobacco Screening? 07/04/2024 [email or web address] Information not available 07/04/2024 How Many Children Do You Have? 0 [email or web address] Information not available 07/04/2024 Do You Have Any Pets? Yes [email or web address] Information not available 07/04/2024 What Is Your Relationship Status? Single [email or web address] Information not available 07/04/2024 Do You Use Your Seat Belt Or Car Seat Routinely? Yes [email or web address] Information not available 07/04/2024 Are You Sexually Active? No [email or web address] Information not available 07/04/2024 Do You Have Smoke And Carbon Monoxide Detectors In Your Home? Yes MIGRATION.0301 750486 Information not available 10/19/2022 Are You Passively Exposed To Smoke? No [email or web address] Information not available 07/04/2024 Are There Any Smokers In Your House? No [email or web address] Information not available 07/04/2024 What Types Of Sporting Activities Do You Participate In? None [email or web address] Information not available 07/04/2024 Do You Feel Stressed (tense, Restless, Nervous, Or Anxious, Or Unable To Sleep At Night)? [id number] MIGRATION.0301 [id number] Information not available 10/19/2022 Do You Use Any Illicit Or Recreational Drugs? No [email or web address] Information not available 07/04/2024 Do You Use Sunscreen Routinely? No MIGRATION.0301 640403 Information not available 10/19/2022 Has Tobacco Cessation Counseling Been Provided? No [email or web address] Information not available 07/04/2024 Have You Recently Traveled Abroad? No [email or web address] Information not available 07/04/2024 Do You Have Any Dietary Restrictions? Yes Should Be On Low Sugar/carb Diet [email or web address] Information not available 07/04/2024 Sex: Female Functional Status Question Answer Note LastModified by Organizat ion Details LastModified Time Do you have difficulty walking or climbing stairs? No MIGRATION.[id number] 026 Information not available 10/19/2022 Do you have transportation difficulties? No [email or web address] Information not available 07/04/2024 Are you able to walk? YESWOREST [email or web address] Information not available 07/04/2024 Do you have difficulty doing errands alone? No MIGRATION.[id number] 026 Information not available 10/19/2022 Are you able to care for yourself? Yes [email or web address] Information n ot available 07/04/2024 Do you have difficulty dressing or bathing? No MIGRATION.4449197 026 Information not available 10/19/2022 What is your exercise level? None [email or web address] Information not available 07/04/2024 Mental Status Question Answer Note LastModified by Organization D etails LastModified Time Do you have difficulty concentrating, remembering or making decisions? Yes [email or web address] Information no t available 07/04/2024 Family History Relationship Description Onset Age of this Age Resolved Age Notes LastModified by Organization Details LastModified Time Mother Malignant neoplasm of lung MIGRATION.830 [id number] Not available 10/19/2022 04:43:24 Mother Malignant tumor of breast MIGRATION.030 [id number] Not available 10/19/2022 04:43:25 Father Heart disease MIGRATION.795 [id number] Not available 10/19/2022 04:43:25 Sister Complication of anesthesia [email or web address] Not available 04/12 15:27:27 Mother Family history of malignant neoplasm [email or web address] Not available 2022 15:27:45 Medical History Condition Response ARTHRITIS Y DIABETES, TYPE Y BLOOD DISEASES Y USE OF BLOOD THINNERS Y ANEMIA/BLOOD DISORDER Y HYPERTENSION Y Gynecological History Statement/Question Response Date of Last Pap Date of Last Mammogram Date of Last Colonoscopy 03/18/2022 Most Recent Bone Density 12/18/2015 Obstetrics History GPAL:G 0 P 0 0 0 0 Immunizations Vaccine Type Date Status Note Provider Nam e and Address Organization Details Recorded Time Influenza, split virus, trivalent, PF 3 completed NIRMAL Allen, [employer] 10/24/2023 10:56:43 Influenza, high-dose, quadrivalent, PF 1 completed Not Available [facility] 04/06/2023 03:45:08 SARS-COV-2 (COVID-19) vaccine, UNSPECIFIED 1 completed NIRMAL Allen, [employer] 10/24/2023 10:56:43 SARS-COV-2 (COVID-19) vaccine, UNSPECIFIED 1 completed NIRMAL Allen, [employer] 10/24/2023 10:56:43 SARS-COV-2 (COVID-19) vaccine, UNSPECIFIED 1 completed Not Available [facility] 04/06/2023 03:45:08 Influenza, split virus, quadrivalent, preservative 0 completed Not Available [facility] 04/06/2023 03:45:08 Tdap 1 completed Not Available [facility] 04/06/2023 03:45:08 pneumococcal polysaccharide PPV23 1 completed Not Available [facility] 04/06/2023 03:45:08 pneumococcal polysaccharide PPV23 5 completed Not Available [facility] PF 8 completed Francheska Hinojosa CMA null, [employer] 10/24/2023 10:56:43 Pneumococcal conjugate PCV 13 6 completed Not Available [facility] 04/06/2023 03:45:08 Influenza, split virus, quadrivalent, preservative 6 completed Not Available [facility] 04/06/2023 03:45:08 Influenza, split virus, quadrivalent, preservative 5 completed Not Available [facility] 04/06/2023 03:45:08 Influenza, split virus, trivalent, preservative 4 completed Francheska Hinojosa [employer] TECH[employer]ICIAN null, [employer] 10/24/2023 10:56:43 Influenza, split virus, quadrivalent, preservative 7 completed Not Available [facility] 04/06/2023 03:45:08 pneumococcal polysaccharide PPV23 4 completed Anabella Daniels MD [address] [place] [address], [address], [address], [employer] 03/04/2024 13:27:44 Past Encounters Encounter ID Performer Location Encounter Start Date Encounter Closed Date Diagnosis/Indication Diagnosis SNOMED-CT Code Diagnosis ICD10 Code Diagnosis Note [id number] Anabella Daniels MD [facility] [address] [place] [address] 02/05/2021 00:00:00 02/05/2021 13:17:42 [id number] Anabella Daniels MD [facility] [address] [place] [address] 06/04/2021 00:00:00 06/04/2021 10:30:21 [id number] Anabella Daniels MD [facility] [address] [place] [address] 08/16/2021 00:00:00 08/16/2021 14:35:44 [id number] MD EUNICE [facility] [address] [place] [address] 10/06/2021 00:00:00 10/06/2021 11:25:17 [id number] Anabella Daniels MD [facility] [address] [facility] [address] 02/07/2022 00:00:00 02/07/2022 11:27:43 [id number] Anabella Daniels MD [facility] [address] [facility] [place] [address] 06/06/2022 00:00:00 06/06/2022 13:04:24 [id number] Anabella Daniels MD [facility] [address] [facility] [place] [address] 08/24/2022 00:00:00 08/24/2022 15:12:50 [id number] Anabella Daniels MD [facility] [address] [facility] [place] [address] 09/05/2022 00:00:00 09/05/2022 11:28:14 [id number] Anabella Daniels MD [facility] [place] [facility] [address] [place] [address] 01/05/2023 11:54:05 01/05/2023 12:51:34 Diabetes mellitus 12385364 E13.42 under control, gets eye exam, seeing endo Diabetic p eripheral neuropathy 744889662 E11.40 not on gabapentin any more due to side effects Asthma 100405469 J45.90 9 under control Essential hypertension 20553353 I10 under control Carotid ar kecia stenosis 11786644 I65.29 on asa, dopplers 11/09 Dysphagia 86343146 R13.1 0 not getting worse Depressive disorder 3548 9007 F32.9 under control, seeing psych Gastroesop hageal reflux disease 980095047 K21.9 under control with meds Heart murmur 64559915 R0 1.1 gets echo Insomnia 346281799 G47.0 0 better with meds Obesity 816569901 E66.9 advised to lose Osteoarthritis 700307459 M19.90 otc Sleep apnea 39467987 G47 .30 on cpap Vitamin D deficiency 347 09045 E55.9 otc Chronic rhinitis 1419108 6 J31.0 on montelukas t Adult heal th examination 431374173 Z00.00 Mammogram- both breast removedDex a 2016, wants to wait due Eliezer stapletonopy 2016PCV 13 [id number] OV ID- 09/22/20, 11/09/20, 05/06/21 Postmenopausal state 764 38613 Z78.0 Urinary symptoms 7150907 08 R39.9 [id number] Danie Celis MD [facility] [place] [facility] [address] [place] [address] 04/12/2023 14:58:45 04/12/2023 16:02:59 Pain of left hip joint 2575823604 84675 M25.948 [id number] Anabella Daniels MD [facility] [place] [facility] [address] [place] [address] 05/16/2023 10:31:13 05/16/2023 11:16:18 Diabetes mellitus 53821633 E13.42 under control, gets eye exam, seeing endo Diabetic p eripheral neuropathy 910391210 E11.40 not on gabapentin any more due to side effects Asthma 817248750 J45.90 9 advised to use symbicort daily Essential hypertension 14492043 I10 under control Carotid ar kecia stenosis 83843911 I65.29 on asa, gets dopplers at cardiology Dysphagia 19214018 R13.1 0 stable Depressive disorder 3548 9007 F32.9 under control, seeing psych Gastroesop hageal reflux disease 974923767 K21.9 under control with meds Heart murmur 08370608 R0 1.1 gets echo Insomnia 763924166 G47.0 0 better with meds Obesity 536886736 E66.9 advised to lose Osteoarthritis 078945823 M19.90 otc Sleep apnea 14491143 G47 .30 on cpap Vitamin D deficiency 347 26466 E55.9 otc Chronic rhinitis 4376591 6 J31.0 on montelukas t Adult heal th examination 193182649 Z00.00 Mammogram- both breast removedDex a 2016, wants to waitColono scopy 2016V 13 [id number] 2004FLU- 2COV ID- 09/22/20, 11/09/20, 05/06/21 Postmenopausal state 764 16375 Z78.0 [id number] Anabella Daniels MD [facility] [address] [place] [address] 10/24/2023 10:44:10 10/24/2023 12:01:20 Diabetes mellitus 27363179 E13.42 under control, gets eye exam, Diabetic p eripheral neuropathy 839559268 E11.40 not on gabapentin any more due to side effects Asthma 034050013 J45.90 9 advised to use symbicort daily Essential hypertension 26482074 I10 under control Carotid ar kecia stenosis 86447625 I65.29 on asa, gets dopplers at cardiology Dysphagia 17728854 R13.1 0 stable Depressive disorder 3548 9007 F32.9 under control, seeing psych Gastroesop hageal reflux disease 269756629 K21.9 under control with meds Insomnia 190219334 G47.0 0 better with meds Obesity 794955503 E66.9 advised to lose Osteoarthritis 605458083 M19.90 otc Sleep apnea 47959305 G47 .30 on cpap Vitamin D deficiency 347 81400 E55.9 otc Chronic rhinitis 9478950 6 J31.0 on montelukas t Adult heal th examination 147982713 Z00.00 Mammogram- both breast removedDex a 2016, wants to waitColono scopy 2016PCV 13 [id number] 2005FLU- OV ID- 09/22/20, 11/09/20, 05/06/21 Postmenopausal state 764 48813 Z78.0 Pain of left wrist 83222 83096 79812 M25.532 use wrist support [id number] Danie Celis MD [facility] [place] [facility] [address] [place] [address] 11/30/2023 08:49:25 11/30/2023 09:12:53 Pain of left wrist 1992642881 49313 M25.532 Tenosynovi tis of left radial styloid 1497215206 2671375 M65.4 [id number] Danie Celis MD [facility] [place] [facility] [address] [place] [address] 12/28/2023 08:57:50 12/28/2023 09:31:17 Tenosynovitis of left radial styloid 3243191341 1278361 M65.4 Pain of left hand 016490 9545 34650 M79.834 [id number] Anabella Daniels MD [facility] [place] [facility] [address] [facility] [place] [address] 03/04/2024 09:47:48 03/04/2024 11:12:54 Diabetes mellitus 52560581 E13.42 under control, Diabetic p eripheral neuropathy 175051346 E11.40 not on gabapentin any more due to side effects Asthma 509096052 J45.90 9 alb inhaler Essential hypertension 43208154 I10 under control Carotid ar kecia stenosis 59450494 I65.29 on asa, gets dopplers at cardiology Dysphagia 33019266 R13.1 0 no more symptoms Depressive disorder 3548 9007 F32.9 under control, seeing psych Gastroesop hageal reflux disease 369135171 K21.9 under control with meds Insomnia 011294781 G47.0 0 better with meds Obesity 632915991 E66.9 advised to lose Osteoarthritis 402249742 M19.90 otc Sleep apnea 66277553 G47 .30 on cpap Vitamin D deficiency 347 35941 E55.9 otc Chronic rhinitis 1230550 6 J31.0 on montelukas t Adult heal th examination 945765170 Z00.00 Mammogram- both breast removedDex a 11/11Colono scopy 2016PCV 13 [id number] 2004,FLU- OV ID- 09/22/20, 11/09/20, 05/06/21 Anemia 397264547 D64.9 Aortic valve stenosis 60 759385 I35.0 s/p valve replacemen t Hyperlipidemia 16992779 E78.5 Non-alcoho lic fatty liver 386771583 K76.0 advised to lose weight Osteopenia 838516130 M85 .80 on otc Infection of skin 197321 000 L08.9 Coronary arteriosclerosis 03658244 I25.10 s/p CABG Administra tion of pneumococcal vaccine 57843453 Z23 [id number] Maggie Vincent MD [facility] [place] [facility] [address] [place] [address] 06/06/2024 14:47:52 06/06/2024 15:33:04 Dysfunction of bilateral eustachian tubes 4381219334 348808 H69.93 Sensorineu ral hearing loss 20848399 H90.5 [id number] Danie Celis MD [facility] [address] 06/10/2024 10:19:09 06/10/2024 10:41:38 Tenosynovitis of left radial styloid 3331782211 7983454 M65.4 [id number] Maggie Vincent MD [facility] [place] [facility] [address] [place] [address] 06/20/2024 14:38:43 06/20/2024 15:26:57 Dysfunction of bilateral eustachian tubes 4933363396 593105 H69.93 [id number] Anabella Daniels MD [facility] [place] [facility] [address] [place] [address] 07/04/2024 09:46:50 07/04/2024 10:59:22 Diabetes mellitus 66103292 E13.42 under control, Diabetic p eripheral neuropathy 300740517 E11.40 not on gabapentin any more due to side effects Asthma 506151393 J45.90 9 alb inhaler prn, under control Essential hypertension 78263529 I10 under control Carotid ar kecia stenosis 73716096 I65.29 on asa, gets dopplers at cardiology Dysphagia 06110425 R13.1 0 no more symptoms Depressive disorder 3548 9007 F32.9 under control, seeing psych Gastroesop hageal reflux disease 556109362 K21.9 under control with meds Insomnia 305081605 G47.0 0 better with meds Obesity 678358068 E66.9 advised to lose Osteoarthritis 508538513 M19.90 otc Sleep apnea 25831340 G47 .30 on cpap, compliant Vitamin D deficiency 347 52663 E55.9 otc Chronic rhinitis 8717650 6 J31.0 on montelukas t Adult heal th examination 769837701 Z00.00 Mammogram- both breast removedDex a 11/11Colono scopy 2016PCV 13 [id number] 2004,FLU- 3COV ID- 09/22/20, 11/09/20, 05/06/21 Anemia 714811150 D64.9 stable Aortic valve stenosis 60 363041 I35.0 s/p valve replacemen t Hyperlipidemia 90954539 E78.5 stable Non-alcoho lic fatty liver 573713217 K76.0 advised to lose weight Osteopenia 406511645 M85 .80 on otc Coronary arteriosclerosis 81264631 I25.10 s/p CABG Screening for disorder 404244822 Z13.9 [id number] Maggie Vincent MD [facility] [place] [facility] [address] [place] [address] 07/24/2024 12:04:01 08/15/2024 10:05:16 Dysfunction of bilateral eustachian tubes 4715144844 124874 H69.93 Dysfunctio n of eustachian tube 78034943 H69.93 [id number] Maggie Vincent MD [facility] [address] [place] [address] 08/27/2024 10:45:03 08/27/2024 11:18:24 Postoperative visit 652216119 Z48.89 08/19/2024 postoperat celestino from a bilateral myringotom y with bilateral Eustachian tube balloon dilation. Advised use of Flonase nasal spray 1-2 squirts per nostril daily. She notes that she does have Flonase at home. Follow-up as needed. [id number] Anabella Daniels MD [facility] [place] Internal Med [facility] [address] [facility] [place] [address] 09/11/2024 15:51:00 09/11/2024 16:29:59 Nausea and vomiting 82089102 R11.2 needs EGD [id number] Maggie Vincent MD [facility] [address] [place] [address] 10/10/2024 13:58:42 10/15/2024 12:17:37 Dysfunction of bilateral eustachian tubes 2968514968 008765 H69.93 [id number] Maggie Vincent MD [facility] [address] [place] [address] 11/07/2024 12:08:05 11/13/2024 15:43:31 Dysfunction of bilateral eustachian tubes 7876146059 196644 H69.93 [id number] Anabella Daniels MD [facility] [place] [facility] [address] [facility] [place] [address] 12/25/2024 10:34:27 12/25/2024 11:52:09 Diabetes mellitus 97686192 E13.42 under control, Diabetic p eripheral neuropathy 790958595 E11.40 not on gabapentin any more due to side effects Asthma 265055957 J45.90 9 under control Essential hypertension 07583574 I10 under control Carotid ar kecia stenosis 69583387 I65.29 on asa, gets dopplers at cardiology Dysphagia 30655877 R13.1 0 no more symptoms Depressive disorder 3548 9007 F32.9 under control, seeing psych Gastroesop hageal reflux disease 890614727 K21.9 under control with meds Insomnia 677167015 G47.0 0 better with meds Obesity 937868265 E66.9 advised to lose more Osteoarthritis 491242507 M19.90 otc Sleep apnea 96526199 G47 .30 on cpap, compliant Vitamin D deficiency 347 15238 E55.9 otc Chronic rhinitis 5511611 6 J31.0 on montelukas t Adult heal th examination 855426973 Z00.00 Mammogram- both breast removedDex a 11/11Colono scopy 2016PCV 13 [id number] 2005Pneumo vax - 03/04/2024- 3COV ID- 09/22/20, 11/09/20, 05/06/21 Anemia 429715649 D64.9 stable Aortic valve stenosis 60 645075 I35.0 s/p valve replacemen t Hyperlipidemia 91765643 E78.5 stable Non-alcoho lic fatty liver 963368571 K76.0 advised to lose more weight Osteopenia 590452376 M85 .80 on otc Coronary arteriosclerosis 15716749 I25.10 s/p CABG Chronic ki dney disease stage 2 527772906 N18.2 Health Concerns Section Related Observation LastModified by Organization Detai ls LastModified Time None Recorded Concern Status LastModified by Organization Details LastModified Time None Recorded Advance Directives Directive N: Payers Encounter Date Sequence Insurance Name Policy Number Policy Boo Covered Member ID Boo Member ID Guarantor Name 08/27/2024 1 [place] Sanita A Divietro [id number] Sanita A Divietro 08/27/2024 2 [employer] (MEDICARE SUPPLEMENT) PLAN F Sanita A Divietro [id number] Sanita A Divietro 09/11/2024 1 [place] Sanita A Divietro [id number] Sanita A Divietro 09/11/2024 2 [employer] (MEDICARE SUPPLEMENT) PLAN F Sanita A Divietro [id number] Sanita A Divietro 10/10/2024 1 [place] Sanita A Divietro [id number] Sanita A Divietro 10/10/2024 2 [employer] (MEDICARE SUPPLEMENT) PLAN F Sanita A Divietro [id number] Sanita A Divietro 11/07/2024 1 [place] Sanita A Divietro [id number] Sanita A Divietro 11/07/2024 2 [employer] (MEDICARE SUPPLEMENT) PLAN F Sanita A Divietro [id number] Sanita A Divietro 12/25/2024 1 [place] Sanita A Divietro [id number] Sanita A Divietro 12/25/2024 2 [employer] (MEDICARE SUPPLEMENT) PLAN F Sanita A Divietro [id number] Sanita A Divietro Notes Date Note Type Note Provider Name and Address Organization Details Recorded Time 5 text/html This patient presents to the office for a postoperative visit from a bilateral myringotomy with tubes and bilateral Eustachian tube balloon dilation that was completed on 08/19/2024. She does report some continued right ear congestion and diminished hearing. She denies any other complaints. DIAZ Morrell [address] [facility], [facility] [address], [place], [address], [employer] 08/27/2024 11:17:48 5 text/html Pt is here today for feeling sick all the time.She has been vomiting a lot lately, can not eat meat.She has lost 26 lbs since last May.Gets abd pain due to dry heavesshe is on trulicity for long time she had EGD and manometry in 2019, wa sn Anabella Daniels MD [address] [facility], [address], [place], [address], [employer] 09/11/2024 16:27:34 5 text/html this patient had PE tubes placed last year but reports severe hearing loss since then. She reports that she is unable to tolerate her hearing loss at this point. Maggie Vincent MD [address], [address], [place], [address], [employer] 10/10/2024 14:21:52 5 text/html this patient had her tubes removed reports that her hearing is unchanged Maggie Vincent MD [address], [address], [place], [address], [employer] 11/07/2024 12:41:25 5 text/html Pt here today for a follow up. taking meds, no side effectsPT IS FASTING ( Medicare/[facility] ) Dysphagia-had trouble swallowing, had esophagus stretched in 2018, and again in [address] Germain, no more symptoms, had EGD in 01/12 Hypertension- on meds, under controlMeds-Losartan 50 mg qd Diabetes- does accu checks some times, running 134 under control watching diet, seeing Dr ChatterjeeA1C- 6.5 in 09/14Meds- Trulicity 0.75 mg/0.5 ML, Metformin 1000 mg BIDEye exam at [facility] Diabetic Neuropathy- not on gabapentin, symptoms [...] Sleep apnea- on cpap, sleep study done 2018 Fatty liver- improvedAsthma- under control, seeing pulmwas [...] CARDIAC WORK UP Anabella Daniels MD [address] [facility], [facility] [address], [place], [address], [place] [employer] 12/25/2024 11:16:20 OBGyn Episode No OBEpisode recorded.
--- OUTSIDE RECORDS SUMMARY | 2024-12-26 00:43 | XMS_ITS | Clinical Summary ---
Author Organization [facility] Address [address] [place] [address] Phone Care Team Providers Care Power And Recovery Supervisor Name Role Phone Maurice Daniels MD Primary Care Provider Jeremias Grewal MD Unavailable Brennen Maldonado MD Unavailable Alonso Antunez DNP Unavailable Dejuan Butterfield MD Unavailable [phone] John Avila MD Unavailable [phone] Vin Oliver MD Unavailable Kvng Valverde MD [...] (12/04/2018): Added automatically from request for surgery [id number] Encounters Date Type Department Care Team Description 12/24/2024 9:00 AM CDT Therapy [facility] Occupational Therapy [address] [place] [phone] Ary Spangler OT 12/17/2024 10:30 AM CDT Office Visit [facility] Bone Marrow Transplant [address] [place] [address] Alonso Antunez DNP Beta thalassemia minor (Primary Dx); Urinary frequency 12/17/2024 10:15 AM CDT Lab [facility] Lab [address] [place] [phone] Beta thalassemia minor; Urinary frequency 12/17/2024 10:00 AM CDT Lab [facility] Oncology [address] [place] [phone] Beta thalassemia minor 12/10/2024 9:00 AM CDT Therapy [facility] Occupational Therapy [address] [place] [phone] Ary Spangler, OT Cortical visual impairment (Primary Dx) 12/09/2024 8:30 AM CDT Office Visit [facility] Ophthalmology [address] [facility] [address] [place] [address] Romelia Ayoub MD Cortical visual impairment (Primary Dx) 11/26/2024 9:00 AM CDT Therapy [facility] Occupational Therapy [address] [place] [phone] Ary Spanglre, OT Cortical visual impairment (Primary Dx) 11/26/2024 Plan of Care Documentation [facility] Occupational Therapy [address] [place] [phone] 11/19/2024 9:00 AM CDT Therapy [facility] Occupational Therapy [address] [place] [phone] Ary Spangler, OT Cortical visual impairment (Primary Dx) 11/05/2024 2:30 PM CDT Therapy [facility] Occupational Therapy [address] [place] [phone] Ary Spangler, OT Cortical visual impairment (Primary Dx) 10/22/2024 12:41 AM [employer] - 10/22/2024 11:06 AM [facility] Emergency [facility] Emergency Department [address] [place] [address] Maosod Gibson MD COVID-19 virus infection (Primary Dx); Chronic nausea; Chronic abdominal pain; Hypertension, unspecified type Discharge Disposition: Discharge to home or self care 10/01/2024 2:30 PM [employer] Therapy [facility] Occupational Therapy [address] [place] [phone] Ary Spangler OT Cortical visual impairment (Primary [...] on file Legal Sex Female 5:26 AM [employer] Gender Identity Not on file Sexual Orientation [...] 12/17/2024 10:09 AM CDT Plan of Treatment Health Maintenance Due Date [...] Risk Assessment 09/10/2025 09/10/2024, 05/09/20 22 eGFR 12/17/2025 12/17/2024, 03/0 10/2024, 06/18/2024, Additional history exists Pneumococcal vaccine 65+ Completed 024, 06/06/2018, 07/06/2016 Medical Devices Implanted Type Area Hand Fretted Instrument Maker Device Identifier Shelf Expiration Date Model / Serial / Lot [employer] [id number] Inspiris Resilia Leaflet Sewing Ring 21mm Valve Aortic Bovine - [id number] - [id number] Implanted:Qty: 1 on 01/18/2019 by Jeremias Grewal MD at [facility] N/A: Heart [employer] 09/06/2020 [id number] / [id number] / Description:Aortic Valve Procedures Procedure Name Priority [...] 12/17/2024 10:02 AM CDT Beta thalassemia minor SC CRITICAL CARE ILL/INJURED PATIENT INIT 30-74 MIN Routine 10/22/2024 10:45 AM [employer] POCT GLUCOSE DEVICE Routine 10/22/2024 8 :[address] ABDOMEN PELVIS W CONTRAST ED 10/22/2024 8:46 AM [employer] URINALYSIS AND REFLEX TO MICROSCOPIC AND CULTURE STAT 10/22/2024 8:34 AM [employer] RESPIRATORY PATHOGEN PANEL STAT 10/22/2024 8:04 AM [employer] LIPASE Add-On 10/22/2024 1:59 AM [employer] TROPONIN T HIGH-SENSITIVITY 2-HOUR Timed 10/22/2024 1:59 AM [employer] XR CHEST 1 VIEW ED 10/22/2024 12:40 AM [employer] EGFR STAT 10/21/2024 11:34 PM [employer] DIFFERENTIAL AUTO STAT 10/21/2024 11: 34 PM [employer] TROPONIN T HIGH-SENSITIVITY SERIES (BASELINE, 2HR, 4HR, 6HR) STAT 10/21/2024 11:34 PM [employer] COMPREHENSIVE METABOLIC PANEL STAT 10/21/2024 11:34 PM [employer] CBC WITH AUTO DIFFERENTIAL STAT 10/21/2024 11:34 PM [employer] ECG 12-LEAD Routine 10/21/2024 11:29 PM [employer] LIPID PANEL Routine 01/20/2019 2:19 AM CDT [...] tendency for uric acid stone formation. Source: [facility] Current Interpretive Data was last revised on [...] CDT 12/17/2024 11:43 AM CDT Alonso Antunez [facility] LAB MICROBIOLOGY - GENERA L ORDERABLES Final Result [facility] [address] Department [place] [address] * (ABNORMAL) eGFR (12/17/2024 10:02 AM CDT) [...] of Race in Diagnosing Kidney Disease, JASN 202). The CKD-EPI equation should not be used for patients with unstable renal function and has not been validated in children and those over 70. Current interpretive data was last reviewed 2021. Testing performed by: [facility] [place] [address] Blood 12/17/2024 10:0 2 AM CDT 12/17/2024 10:02 AM CDT us Brennen Maldonado MD LAB BLOOD ORDERABLES Fin al Result ROSHNI [address] Department of Laboratories [place], [place] [phone] * (ABNORMAL) Differential, auto (12/17/2024 10:02 AM CDT) Neutrophil abs 7.57(H) 1.50 - 6.50 K/cumm Comment:Testing performed by : [facility] [place] [address] Imm gran abs 0.03 0.00 - 0.10 K/cumm CERLYDIA Comment:Testing performed by : [facility] [place] [address] Lymphocyte abs 2.26 0.80 - 3.30 K/cumm CERLYDIA Comment:Testing performed by : [facility] [place] [address] Monocyte abs 0.72 0.20 - 0.80 K/cumm CERLYDIA Comment:Testing performed by : [facility] [place] [address] Eosinophil abs 0.37 0.00 - 0.50 K/cumm CERLYDIA Comment:Testing performed by : [facility] [place] [address] Basophil abs 0.06 0.00 - 0.10 K/cumm CERLYDIA Comment:Testing performed by : [facility] [place] [address] Neutrophil pct 68.8 % CERLYDIA Comment: Interpretive Data Percent cell count reference ranges are not reported, since discordance with absolute values may lead to misinterpretation of CBC data. Current Interpretive Data was last revised on 2017. Testing performed by: [facility] [place] [address] Imm gran pct 0.3 % CERNER Comment: Interpretive Data Percent cell count reference ranges are not reported, since discordance with absolute values may lead to misinterpretation of CBC data. Current Interpretive Data was last revised on 2017. Testing performed by: [facility] [place] [address] Lymphocyte pct 20.5 % CERNER Comment: Interpretive Data Percent cell count reference ranges are not reported, since discordance with absolute values may lead to misinterpretation of CBC data. Current Interpretive Data was last revised on 2017. Testing performed by: [facility] [place] [address] Monocyte pct 6.5 % CERNER Comment: Interpretive Data Percent cell count reference ranges are not reported, since discordance with absolute values may lead to misinterpretation of CBC data. Current Interpretive Data was last revised on 2017. Testing performed by: [facility] [place] [address] Eosinophil pct 3.4 % CERNER Comment: Interpretive Data Percent cell count reference ranges are not reported, since discordance with absolute values may lead to misinterpretation of CBC data. Current Interpretive Data was last revised on 2017. Testing performed by: [facility] [place] [address] Basophil pct 0.5 % CERNER Comment: Interpretive Data Percent cell count reference ranges are not reported, since discordance with absolute values may lead to misinterpretation of CBC data. Current Interpretive Data was last revised on 2017. Testing performed by: [facility] [place] [address] Blood 12/17/2024 10:0 2 AM CDT 12/17/2024 10:02 AM CDT us Brennen Maldonado MD LAB BLOOD ORDERABLES Fin al Result [facility] JOHN [address] Department [place] [address] * (ABNORMAL) CBC with auto differential (12/17/2024 10:02 AM CDT) WBC 11.01(H) 3.80 - 9.90 K/cumm Comment:Testing performed by : [facility] [place] [address] Hgb 10.5(L) 11.9 - 15.5 g/dL CERNER CH Comment:Testing performed by : [facility] [place] [address] Hct 33.7(L) 35.6 - 45.5 % CERNER CH Comment:Testing performed by : [facility] [place] [address] Plt 263 150 - 400 K/cumm CERNER CH Comment:Testing performed by : [facility] [place] [address] MPV 9.5 9.1 - 12.3 fL CERNER CH Comment:Testing performed by : [facility] [place] [address] RBC 4.47 3.90 - 5.20 M/cumm CERNER CH Comment:Testing performed by : [facility] [place] [address] MCV 75.4(L) 81.3 - 96.4 fL CERNER CH Comment:Testing performed by : [facility] [place] [address] MCH 23.5(L) 27.1 - 33.3 pg CERNER CH Comment:Testing performed by : [facility] [place] [address] MCHC 31.2(L) 32.3 - 35.7 g/dL CERNER CH Comment:Testing performed by : [facility] [place] [address] RDW CV 15.3(H) 11.1 - 14.9 % CERNER CH Comment:Testing performed by : [facility] [place] [address] RDW SD 41.9 35.7 - 48.1 fL CERNER CH Comment:Testing performed by : [facility] [place] [address] NRBC abs 0.00 0.00 - 0.01 K/cumm CERLYDIA Comment:Testing performed by : [facility] [place] [address] ANC Prelim 7.57(H) 1.50 - 6.50 K/cumm CERLYDIA Comment: Interpretive Data The rapid ANC is a preliminary automated count and may vary from the final ANC (Neut Abs) reported in the WBC differential that follows. Current interpretive data was last revised 2024. Testing performed by: [facility] [place] [address] Blood 12/17/2024 10:0 2 AM CDT 12/17/2024 10:02 AM CDT Brennen Maldonado MD LAB BLOOD ORDERABLES Fin al Result [facility] [address] Department [place] [address] * (ABNORMAL) Comprehensive metabolic panel (12/17/2024 10:02 AM CDT) Sodium 141 135 - 145 mmol/L Comment:Testing performed by : [facility] [place] [address] Potassium, pl 4.9 3.3 - 4.9 mmol/L CERLYDIA Comment:Testing performed by : [facility] [place] [address] Chloride 104 97 - 110 mmol/L ROSHNI Comment:Testing performed by : [facility] [place] [address] CO2 24 22 - 32 mmol/L CERNER Comment:Testing performed by : [facility] [place] [address] Anion gap 13 2 - 15 mmol/L CERLYDIA Comment:Testing performed by : [facility] [place] [address] BUN 13 6 - 25 mg/dL CERNER Comment:Testing performed by : [facility] [place] [address] Creatinine 1.23(H) 0.60 - 1.10 mg/dL CERNER Comment:Testing performed by : [facility] [place] [address] Glucose 94 70 - 199 mg/dL CERNER CH Comment: [...] was last revised 2022. Testing performed by: [facility] [place] [address] Calcium 9.4 8.5 - 10.3 mg/dL CERNER CH Comment:Testing performed by : [facility] [place] [address] Bilirubin, total 0.4 0.1 - 1.2 mg/dL CERNER CH Comment:Testing performed by : [facility] [place] [address] Protein, pl 7.0 6.5 - 8.5 g/dL CERNER CH Comment:Testing performed by : [facility] [place] [address] Albumin 4.2 3.5 - 5.0 g/dL CERNER CH Comment:Testing performed by : [facility] [place] [address] Alk phos 83 40 - 130 Units/L CERNER CH Comment:Testing performed by : [facility] [place] [address] ALT 10 7 - 45 Units/L CERNER CH Comment:Testing performed by : [facility] [place] [address] AST 15 10 - 45 Units/L CERNER CH Comment:Testing performed by : [facility] [place] [address] Blood 12/17/2024 10:0 2 AM CDT 12/17/2024 10:02 AM CDT us Brennen Maldonado MD LAB BLOOD ORDERABLES Fin al Result Performing Organization Address [facility]/ZIP Co de Phone Number [facility] JOHN [address] Department [place] [address] * SC CRITICAL CARE ILL/INJURED PATIENT INIT 30-74 MIN (10/22/2024 10:45 AM [employer]) Narrative Masood Gibson MD - 10/22/2024 10:45 AM [employer] Masood Gibson MD 11/04/2024 7:33 PM Critical [...] Result * POCT glucose (10/22/2024 8:54 AM [employer]) Glucose, POC 87 70 - 199 mg/dL Blood 10/22/2024 8:54 AM [employer] 10/22/2024 8:54 AM [employer] us Masood Gibson MD LAB POCT ORDERABLES - SUKH CE Final Result Performing Organization Address [facility]/ZIP Co de Phone Number [facility] JOHN [address] [address] Department [place] [address] * CT Abdomen Pelvis W Contrast (10/22/2024 8:46 AM [employer]) Anatomical Region Laterality Modality Body N/A Computed Tomogra phy 10/22/2024 9:20 AM [employer] Impressions 10/22/2024 9:20 AM [employer] NO ACUTE INTRA-ABDOMINAL FINDINGS Electronically signed by: Larry Eng M.D. Narrative 10/22/2024 9:20 AM [employer] EXAMINATION: CT ABDOMEN PELVIS W CONTRAST DATE: [...] microscopic and culture Urine (10/22/2024 8:34 AM [employer]) Color, ur Yellow Yellow Clarity, ur Clear [...] tendency for uric acid stone formation. Source: [employer] Current Interpretive Data was last revised on [...] for microscopic UA and culture not met. [facility] Urine 10/22/2024 8:34 AM [employer] 10/22/2024 8:39 AM [employer] Masood Gibson MD LAB MICROBIOLOGY - GENERAL ORDERABLES Final Result [facility] [address] Department [place] [address] * (ABNORMAL) Respiratory pathogen panel Nasopharyngeal (10/22/2024 8:04 AM [employer]) Pathologist [facility] Influenza A RNA Not Detected Not Detected Influenza B RNA Not Detected Not Detected [facility] RSV RNA Not Detected Not Detected [facility] COVID-19 RNA Detected(A) Not Detected [facility] Coronavirus 229E RNA Not Detected Not Detected [facility] Coronavirus HKU1 RNA Not Detected Not Detected [facility] Coronavirus NL63 RNA Not Detected Not Detected [facility] Coronavirus OC43 RNA Not Detected Not Detected [facility] Adenovirus DNA Not Detected Not Detected [facility] Metapneumovirus RNA Not Detected Not Detected [facility] Rhinovirus/Enterov irus RNA Not Detected Not Detected [facility] Parainfluenza 1 RNA Not Detected Not Detected [facility] Parainfluenza 2 RNA Not Detected Not Detected [facility] Parainfluenza 3 RNA Not Detected Not Detected [facility] Parainfluenza 4 RNA Not Detected Not Detected [facility] B. pertussis DNA Not Detected Not Detected [facility] B. parapertussis DNA Not Detected Not Detected [facility] C. pneumoniae DNA Not Detected Not Detected [facility] M. pneumoniae DNA Not Detected Not Detected [facility] Comment: Interpretive Data The [employer] FilmArray Respiratory Panel (RP2.1) assay is a [...] assay has FDA clearance for testing of [employer] swabs. The performance characteristics of this assay have been determined by [facility]. Current interpretive data was last revised on 2021. Nasopharyngeal 10/22/2024 8: 04 AM [employer] 10/22/2024 8:06 AM [employer] Narrative [facility] JOHN - 10/22/2024 9:05 AM [employer]ANT Is the Patient experiencing symptoms consistent with COVID?->Yes Surveillance testing for transplant patient?->No Masood Gibson MD LAB MICROBIOLOGY - GENERAL ORDERABLES Final Result [facility] JOHN [address] Department [place] [address] * Troponin T high-sensitivity 2-hour (10/22/2024 1:59 AM [employer]) Trop T hs 11 <=14 ng/L Comment: Interpretive Data For further hscTnT resources including the diagnostic algorithm and an aid in interpretation, copy and paste this link: https://nrl.testcatalog.org/show/hsTrop Current Interpretive Data last revised 2020. Trop T hs delta 0 ng/L CERNER CH Trop T hs interp Insignificant CERNER CH Blood 10/22/2024 1:59 AM [employer] 10/22/2024 2:02 AM [employer] Osbaldo Cade MD LAB BLOOD ORDERABLES Final Result Performing Organization Address [facility] Co de Phone Number [facility] [address] Department [place] [address] * Lipase (10/22/2024 1:59 AM [employer] PLANT) Pathologist [facility] Lipase 40 10 - 99 Units/L Blood 10/22/2024 1:59 AM [employer] 10/22/2024 2:02 AM [employer]ANT Robin GLORIA LAB BLOOD ORDERABLES Final Result Performing Organization Address [facility] de Phone Number [facility] [address] Department [place] [address] * XR Chest 1 Vw Portable (10/22/2024 12:40 AM [employer]) Anatomical Region Laterality Modality Body, Chest N/A Computed Radiogr aphy 10/22/2024 9:01 AM [employer] Impressions 10/22/2024 9:01 AM [employer] No acute cardiopulmonary findings. Electronically signed by: Danie Betancourt II, D.O. Narrative 10/22/2024 9:01 AM [employer] EXAMINATION: XR CHEST 1 VIEW DATE: 10/22/2024 [...] (baseline, 2hr, 4hr, 6hr) (10/21/2024 11:34 PM GUIDE [employer]ANT) Pathologist [facility] Trop T hs 11 <=14 ng/L Comment: Interpretive Data For further hscTnT resources including the diagnostic algorithm and an aid in interpretation, copy and paste this link: https://nrl.testcatalog.org/show/hsTrop Current Interpretive Data last revised 2020. Blood 10/21/2024 11:3 4 PM [employer] 10/21/2024 11:39 PM [employer] us Osbaldo Cade MD LAB BLOOD ORDERABLES Final Result [facility] [address] [address] Department [place] [address] * eGFR (10/21/2024 11:34 PM [employer]) eGFR 71 >=60 mL/min/1. 73 m2 Comment: [...] reviewed 2021. Blood 10/21/2024 11:3 4 PM [employer] 10/21/2024 11:39 PM [employer] us Osbaldo Cade MD LAB BLOOD ORDERABLES Final Result [facility] [address] [address] Department [place] [address] * Differential, auto (10/21/2024 11:34 PM [employer]) Neutrophil abs 5.3 1.5 - 6.5 K/cumm Imm gran abs 0.0 0.0 - 0.1 K/cumm [facility] Lymphocyte abs 3.3 0.8 - 3.3 K/cumm [facility] Monocyte abs 0.7 0.2 - 0.8 K/cumm [facility] Eosinophil abs 0.3 0.0 - 0.5 K/cumm [facility] Basophil abs 0.0 0.0 - 0.1 K/cumm [facility] Neutrophil pct 54.8 % [facility] Comment: Interpretive Data Percent cell count reference ranges are not reported, since discordance with absolute values may lead to misinterpretation of CBC data. Current Interpretive Data was last revised on 2017. Imm gran pct 0.3 % [facility] Comment: Interpretive Data Percent cell count reference ranges are not reported, since discordance with absolute values may lead to misinterpretation of CBC data. Current Interpretive Data was last revised on 2017. Lymphocyte pct 34.3 % [facility] Comment: Interpretive Data Percent cell count reference ranges are not reported, since discordance with absolute values may lead to misinterpretation of CBC data. Current Interpretive Data was last revised on 2017. Monocyte pct 7.1 % [facility] Comment: Interpretive Data Percent cell count reference ranges are not reported, since discordance with absolute values may lead to misinterpretation of CBC data. Current Interpretive Data was last revised on 2017. Eosinophil pct 3.3 % [facility] Comment: Interpretive Data Percent cell count reference ranges are not reported, since discordance with absolute values may lead to misinterpretation of CBC data. Current Interpretive Data was last revised on 2017. Basophil pct 0.2 % [facility] Comment: Interpretive Data Percent cell count reference ranges are not reported, since discordance with absolute values may lead to misinterpretation of CBC data. Current Interpretive Data was last revised on 2017. Blood 10/21/2024 11:3 4 PM [employer] 10/21/2024 11:39 PM [employer] Osbaldo Cade MD LAB BLOOD ORDERABLES Final Result [facility] [address] Department of Laboratories [place], [place] [id number] * (ABNORMAL) CBC with auto differential (10/21/2024 11:34 PM [employer]) WBC 9.7 3.8 - 9.9 K/cumm Hgb 10.0(L) 11.9 - 15.5 g/dL [facility] Hct 32.4(L) 35.6 - 45.5 % [facility] Plt 242 150 - 400 K/cumm [facility] MPV 10.0 9.1 - 12.3 fL [facility] RBC 4.38 3.90 - 5.20 M/cumm [facility] MCV 74.0(L) 81.3 - 96.4 fL [facility] MCH 22.8(L) 27.1 - 33.3 pg [facility] MCHC 30.9(L) 32.3 - 35.7 g/dL [facility] RDW CV 15.4(H) 11.1 - 14.9 % [facility] RDW SD 41.5 35.7 - 48.1 fL [facility] CH NRBC abs 0.00 0.00 - 0.01 K/cumm [facility] CH Blood 10/21/2024 11:3 4 PM [employer] 10/21/2024 11:39 PM [employer] us Osbaldo Cade MD LAB BLOOD ORDERABLES Final Result C[facility]ER [address] [address] Department [place] [address] * Comprehensive metabolic panel (10/21/2024 11:34 PM [employer]) Sodium 139 135 - 145 mmol/L Potassium, [...] [facility]ER CH Blood 10/21/2024 11:3 4 PM [employer] 10/21/2024 11:39 PM [employer]ANT Osbaldo Cade MD LAB BLOOD ORDERABLES Final Result Performing Organization Address [facility] Co de Phone Number [facility] [address] Department [place] [address] * ECG 12 lead (10/21/2024 11:29 PM [employer]IDE [employer]) 10/21/2024 11:2 9 PM [employer]ANT Narrative [facility] - 10/22/2024 11:20 AM [employer] Vent Rate: 61 bpm RR Interval: 982 msec SC Interval: 194 msec QRS Duration: 101 msec QT Interval: 390 msec QTC Interval: 392 msec P-R-T [place]: 31 - 0 - 51 degrees IMPRESSION: SINUS RHYTHM NORMAL ECG Electronically Signed By: Isac Souza MD Osbaldo Cade MD ECG ORDERABLES Final Resul t Performing Organization Address [facility] de Phone Number [facility] [employer] RUST * Lipid panel (01/20/2019 2:19 AM CDT) [...] last revised on 2018. Chol/HDL ratio 2 [facility] Blood specimen (specimen) 01/20/2019 2:19 AM CDT 01/20/2019 2:30 AM CDT Narrative ROSHNI - 01/20/2019 3:12 AM CDT Mook Green MD LAB BLOOD ORDERABLES Final Resu lt Performing Organization Address [facility] de Phone Number [facility] [address] [address] [facility] [place] [address] * (ABNORMAL) Hemoglobin A1c (12/31/2018 1:30 PM CDT) Hgb A1C 7.6(H) 4.0 - 5.6 % [facility] Estimated Average Glucose 171 mg/dL [facility] Comment: The ADA recommends reporting an estimated Average Glucose (eAG) with all Hemoglobin A1c results using the equation derived from a study of 507 normal and diabetic adults. Minority populations were underrepresented and children were not included. (Diabetes Care 31:6198-1411, 2008). The eAG is not equivalent to a fasting glucose. Blood specimen (specimen) 12/31/2018 1:30 PM CDT 12/31/2018 3:16 PM CDT [facility]ative [facility] - 12/31/2018 5:03 PM CDT Jeremias Grewal MD LAB BLOOD ORDERABLES Final R esult Performing Organization Address [facility] de Phone Number [facility] [address] [address] [place] [address] from Last 3 Months or Most Recently Relevant to Health Maintenance Additional Health Concerns Infection Onset Date Last Indicated COVID: Recovered Comment:Added based on recent COVID infection. 11/01/2024 025 Insurance MEDICARE [facility] [place] MEDICARE [facility] [place] [facility] [place] MEDICARE MEDICARE [facility] Advance Directives For more information, please contact: [phone] * Full Code (Latest Code Status on File) Date Activated Date Inactivated Comments 01/29/2019 6:44 PM 02/08/2019 10:55 PM * Full Code Date Activated Date Inactivated Comments 01/18/2019 2:27 PM 01/29/2019 6:14 PM Care Teams Power And Recovery Supervisor Relationship Specialty Start Date End Date Maurice Daniels MD PCP - General 12/05/17 Jeremias Grewal MD Surgeon Cardiothoracic Surgery 10/07/19 Brennen Maldonado MD [address] [place] [address] Consulting Physician Hematology and Oncology 05/18/23 Alonso Antunez DNP [address] [place] [address] Nurse Practitioner Hematology and Oncology 05/18/23 Dejuan Butterfield MD [address] [facility] [address] [place] [address] Referring Physician Ophthalmology 01/11/24 John Avila MD [address] [facility] [address] [place] [address] Referring Physician Obstetrics and Gynecology 05/27/24 Vin Oliver MD [address] [place] [address] Referring Physician Psychiatry 05/27/24 [place] [address] [facility] [address] [place] [address] Consulting Physician Cardiology 05/27/24 Prabhu Harp NP [address] [place] [address] Nurse Practitioner Sleep Medicine 05/27/24 Ary Spangler OT [address] [place] [address] Occupational Therapist Occupational Therapy 09/10/24
[2024-12-26 10:07] VITALS: BP 152/56; PULSE 66; RESP 18; TEMP 36.1; O2SAT 100; BMI 34.7
[2024-12-26] MEDS: LACTATED RINGERS 1,000 ML 150 ML IV CONT (10:17)
[2024-12-26] MEDS: GENTAMICIN 80MG/SOD CHL 50 ML 80 MG/50 ML BAG 100 MG IVPB (10:21)
--- NOTE | 2024-12-26 10:23 | WPDANESEPPF ---
Anes - Initial Pre Proc Eval Procedure: Operation Date: 12/26/24 11:30 Proposed Procedures p Colonoscopy - Gregg Estrada MD Date/Time: 12/26/24 10:23 Surgeon: Gregg Estrada MD Pre Op Diagnosis: Iron deficiency anemia, unspecified Patient Data Age: 64 Gender: F Height: 1.57 m Weight: 86.2 kg Last Vital Signs Temp 97 F L 12/26/24 10:07 Pulse 66 12/26/24 10:07 Resp 18 12/26/24 10:07 BP 152/56 H 12/26/24 10:07 Pulse Ox 100 12/26/24 10:07 O2 Del Method Room Air 12/26/24 10:07 Allergies Allergy/AdvReac Type Severity Reaction Status Date / Time Quinolones Allergy Unknown Unknown Verified 12/26/24 10:06 levofloxacin AdvReac Unknown Hallucinati Verified 12/26/24 10:06 ng Home Medications ?Medication ?Instructions ?Recorded ?Confirmed ?Type aspirin 81 mg tablet,delayed 81 mg PO DAILY 06/24/19 12/26/24 History release furosemide 20 mg tablet 20 mg PO 2XW 06/24/19 12/12/24 History lamotrigine 100 mg tablet 100 mg PO DAILY 06/24/19 12/26/24 History metformin 1,000 mg tablet 1,000 mg PO BID 06/24/19 12/26/24 History zolpidem 10 mg tablet (Ambien) 5 mg PO ONCE 06/24/19 12/12/24 History cholecalciferol (vitamin D3) 25 25 mcg PO DAILY 06/21/21 12/26/24 History mcg (1,000 unit) capsule atorvastatin 80 mg tablet 80 mg PO DAILY 03/07/22 12/26/24 History ezetimibe 10 mg tablet 10 mg PO DAILY 03/07/22 12/26/24 History albuterol sulfate 90 mcg/actuation 1 - 2 puff inhalation Q4-6H PRN 04/28/22 12/12/24 Rx aerosol inhaler shortness of breath or wheezing #8.5 grams albuterol sulfate 2.5 mg/3 mL 2.5 mg (3 mL) inhalation Q4-6H PRN 07/13/22 12/12/24 Rx (0.083 %) solution for nebulization shortness of breath or wheezing #360 mL budesonide-formoterol HFA 160 2 puff inhalation Q12H #10.2 grams 07/25/22 12/12/24 Rx mcg-4.5 mcg/actuation aerosol inhaler (Symbicort) losartan 50 mg tablet 50 mg PO DAILY 06/06/24 12/26/24 History fluticasone propionate 50 1 spray intranasal Q12H PRN 09/05/24 12/12/24 History mcg/actuation nasal allergy symptoms spray,suspension pantoprazole 40 mg tablet,delayed 40 mg PO DAILY 09/05/24 12/26/24 History release propranolol 20 mg tablet 20 mg PO DAILY 09/05/24 12/26/24 History dulaglutide 4.5 mg/0.5 mL 4.5 mg subcut WEEKLY 10/18/24 12/26/24 History subcutaneous pen injector (Trulicity) insulin glargine 100 unit/mL (3 40 unit subcut DAILY 10/18/24 12/26/24 History mL) subcutaneous pen (Hallpass MediaaglOrthoFi KwikPen U-100 Insulin) ondansetron HCl 4 mg tablet 4 mg PO Q8H PRN nausea and 11/27/24 12/12/24 Rx vomiting #90 tabs Patient hx anesthesia problems: none Family hx anesthesia problems: none Results Review: All pre-operative results and documents have been reviewed as part of the pre-operative evaluation. 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 Surgical History Surgical History H/O breast biopsy H/O cardiac catheterization H/O mastectomy History of cholecystectomy Family History Family History Father Family history of blood dyscrasia Family history of glaucoma Family history of cataracts Asthma Family history of anemia Family history of diabetes mellitus in first degree relative Family history of coronary artery disease Family history of congestive heart failure Family history of heart disease in male family member before age 55 Family history of cardiovascular disease Mother Family history of mental disorder Depression Family history of liver disease Family history of diabetes mellitus in first degree relative Family history of lung disease Family history of hearing loss Family history of lung cancer Social History Social History Smoking status: Never smoker Alcohol intake: never Substance use type: does not use Do You Feel Safe in your Home?: Yes Lack of Transportation: No Lack of Food: Never True Current Housing: I Have Housing Concerned About Future Housing: No Difficulty Paying Gas/Electric Bills: No Difficulty Paying for Meds: No Currently Unemployed: No Education: High School Diploma/GED Difficulty w/ Childcare or Family Care: No Living arrangements: with friend(s) Spiritual care concerns: No Anes - Eval Final PreProcedure Day of Procedure 12/26/24 10:23 Patient weight: obese Lungs: normal air movement Airway: Mallampati scale class II Neurological: alert and oriented Last oral intake: >/= 8 hours ASA classification: III Emergent: no Anesthetic plan: proceed Anesthesia type and monitoring: general GIVS and standard monitoring Results Review: All pre-operative results and documents have been reviewed as part of the pre-operative evaluation. HTN, hyperlipidemia, hx AVR 2019 on ASA, PATRICIA on CPAP, DM fsbs 83 now. Off GLP1 for 9 days. Pt w N/V for eval today. Informed Consent: The patient's anesthetic plan and its attendant risks and benefits were discussed with the patient/family/POA. Questions were solicited and answers provided to the satisfaction of the patient/family/POA.
[2024-12-26 10:26] LABS: Glucose Point of Care 83 mg/dl (65-105)
[2024-12-26] MEDS: ONDANSETRON INJ 4 MG/2 ML VIAL IV PUSH (10:30)
[2024-12-26] MEDS: AMPICILLIN 2 GM/NS 100 ML 2 GM/100 ML BAG IVPB (10:53)
--- NOTE | 2024-12-26 10:56 | PM.HPGS ---
History of Present Illness History of Present Illness Consent: Risks, benefits, and alternatives have been discussed and questions answered. Patient agrees to proceed with procedure. Chief complaint: Iron deficiency anemia, unspecified Narrative: Loan Park is a 64 year old female with anemia (lowe than usual- h/o thalassemia), last colonoscopy 2021 with polyp, also nausea with recent egd, also had normal GES Review of Systems Review of Systems: All systems reviewed & are unremarkable except as noted in HPI and below PMFSH Past Medical History Medical History (Updated 12/26/24 @ 10:57 by Gregg Estrada MD) Colon polyp Microcytic anemia Weight loss Nausea & vomiting Diabetic peripheral neuropathy Essential (primary) hypertension Pure hypercholesterolemia Type 2 diabetes mellitus with hyperglycemia Carpal tunnel syndrome Depression Leaky heart valve VALENTINE (nonalcoholic steatohepatitis) Thalassemia Metabolic disorder, unspecified 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 Surgical History Surgical History H/O breast biopsy H/O cardiac catheterization H/O mastectomy History of cholecystectomy Family History Family History Father Family history of blood dyscrasia Family history of glaucoma Family history of cataracts Asthma Family history of anemia Family history of diabetes mellitus in first degree relative Family history of coronary artery disease Family history of congestive heart failure Family history of heart disease in male family member before age 55 Family history of cardiovascular disease Mother Family history of mental disorder Depression Family history of liver disease Family history of diabetes mellitus in first degree relative Family history of lung disease Family history of hearing loss Family history of lung cancer Social History Social History Smoking status: Never smoker Alcohol intake: never Substance use type: does not use Do You Feel Safe in your Home?: Yes Lack of Transportation: No Lack of Food: Never True Current Housing: I Have Housing Concerned About Future Housing: No Difficulty Paying Gas/Electric Bills: No Difficulty Paying for Meds: No Currently Unemployed: No Education: High School Diploma/GED Difficulty w/ Childcare or Family Care: No Living arrangements: with friend(s) Spiritual care concerns: No Meds Home Medications and Allergies Home Medications ?Medication ?Instructions ?Recorded ?Confirmed ?Type aspirin 81 mg tablet,delayed 81 mg PO DAILY 06/24/19 12/26/24 History release furosemide 20 mg tablet 20 mg PO 2XW 06/24/19 12/12/24 History lamotrigine 100 mg tablet 100 mg PO DAILY 06/24/19 12/26/24 History metformin 1,000 mg tablet 1,000 mg PO BID 06/24/19 12/26/24 History zolpidem 10 mg tablet (Ambien) 5 mg PO ONCE 06/24/19 12/12/24 History cholecalciferol (vitamin D3) 25 25 mcg PO DAILY 06/21/21 12/26/24 History mcg (1,000 unit) capsule atorvastatin 80 mg tablet 80 mg PO DAILY 03/07/22 12/26/24 History ezetimibe 10 mg tablet 10 mg PO DAILY 03/07/22 12/26/24 History albuterol sulfate 90 mcg/actuation 1 - 2 puff inhalation Q4-6H PRN 04/28/22 12/12/24 Rx aerosol inhaler shortness of breath or wheezing #8.5 grams albuterol sulfate 2.5 mg/3 mL 2.5 mg (3 mL) inhalation Q4-6H PRN 07/13/22 12/12/24 Rx (0.083 %) solution for nebulization shortness of breath or wheezing #360 mL budesonide-formoterol HFA 160 2 puff inhalation Q12H #10.2 grams 07/25/22 12/12/24 Rx mcg-4.5 mcg/actuation aerosol inhaler (Symbicort) losartan 50 mg tablet 50 mg PO DAILY 06/06/24 12/26/24 History fluticasone propionate 50 1 spray intranasal Q12H PRN 09/05/24 12/12/24 History mcg/actuation nasal allergy symptoms spray,suspension pantoprazole 40 mg tablet,delayed 40 mg PO DAILY 09/05/24 12/26/24 History release propranolol 20 mg tablet 20 mg PO DAILY 09/05/24 12/26/24 History dulaglutide 4.5 mg/0.5 mL 4.5 mg subcut WEEKLY 10/18/24 12/26/24 History subcutaneous pen injector (Trulicity) insulin glargine 100 unit/mL (3 40 unit subcut DAILY 10/18/24 12/26/24 History mL) subcutaneous pen (Basaglar KwikPen U-100 Insulin) ondansetron HCl 4 mg tablet 4 mg PO Q8H PRN nausea and 11/27/24 12/12/24 Rx vomiting #90 tabs Allergies Allergy/AdvReac Type Severity Reaction Status Date / Time Quinolones Allergy Unknown Unknown Verified 12/26/24 10:06 levofloxacin AdvReac Unknown Hallucinati Verified 12/26/24 10:06 ng Vital Signs Vital Signs - 24 hr 12/26/24 10:07 Temperature 97 F L Pulse Rate 66 Respiratory Rate 18 Blood Pressure 152/56 H Pulse Oximetry 100 Oxygen Delivery Room Air Exam Const: General: comfortable and no acute distress HENMT: Face/Nose/Sinus: Normal nares present Eyes: General: appearance normal, both eyes and all related structures Neck: Neck: no JVD Resp: Auscultation: clear to auscultation bilaterally Cardio: Rate: regular rate Rhythm: regular rhythm GI: Inspection: non-distended GI Palp: Yes Soft to palpation Skin: General skin exam: normal color Neuro: Speech: normal speech Extrem: General: normal to inspection Psych: Mental Status: mental status grossly normal Assessment and Plan Assessment and plan (1) Microcytic anemia: Code(s): D50.9 - Iron deficiency anemia, unspecified Status: Acute Assessment and Plan: will do colonoscopy (2) Colon polyp: Code(s): K63.5 - Polyp of colon Status: Acute
[2024-12-26 11:16] VITALS: BP 96/38; PULSE 61; RESP 20; O2SAT 98
[2024-12-26 11:26] VITALS: BP 139/60; PULSE 62; RESP 18; O2SAT 100
[2024-12-26 11:36] VITALS: BP 138/54; PULSE 60; RESP 19; O2SAT 100
== END 2024-12-26 11:51 | disposition home or self-care (01) ==
PROVIDERS: PCP Internal Medicine; Referring Provider Internal Medicine Gastroenterology; Visit Provider Internal Medicine Gastroenterology
PROC: 0DJD8ZZ Inspection of Lower Intestinal Tract, Via Natural or Artificial Opening Endoscopic (ICD-10-PCS; CPT 45378; principal; 2024-12-26 11:30)
DX: D50.9 Iron deficiency anemia, unspecified (principal); Z86.0100 Personal history of colon polyps, unspecified; E11.9 Type 2 diabetes mellitus without complications; E66.9 Obesity, unspecified; Z68.34 Body mass index [BMI] 34.0-34.9, adult
CPT/HCPCS: 45378; 82948; J0290; J1580; J2003; J2405; J2704; J7120

== ENCOUNTER 2025-02-03 10:24 | Outpatient (CLI) | payer MEDICARE, OTHER, SELFPAY ==
--- NOTE | ~2025-02-03 | US_ITS ---
US retroperitoneal comp Ordering provider: Mike Valverde, History: . Chronic kidney disease, stage 3 unspecified . Comparison: None. Technique: Ultrasound bilateral kidneys. Findings: RIGHT KIDNEY: Measures 9.7x 5.2x 6.4 cm in length which is normal in size. No renal cysts. No renal m ass or visualized echogenic stones. Otherwise, normal echotexture and contour. No hydronephrosis. Nor mal renal cortical thickness. LEFT KIDNEY: Measures 9.7x 5.3x 5.4 cm in length which is normal in size. No renal cysts. No renal ma ss or visualized echogenic stones. Otherwise, normal echotexture and contour. No hydronephrosis. Norm al renal cortical thickness. BLADDER: Normal. Ureteral jets were not seen bilaterally. IMPRESSION: Normal bilateral kidneys. Reviewed, dictated and finalized at location A. IMPRESSION: Normal bilateral kidneys.
== END 2025-02-03 10:25 | disposition home or self-care (01) ==
PROVIDERS: PCP Internal Medicine; Visit Provider Specialist
DX: N18.30 Chronic kidney disease, stage 3 unspecified (principal)
CPT/HCPCS: 76770

== ENCOUNTER 2025-03-14 10:02 | Outpatient (CLI) | payer MEDICARE, OTHER, SELFPAY ==
--- OUTSIDE RECORDS SUMMARY | 2025-03-14 10:06 | XMS_ITS ---
Author Organization [facility] Address [address] [facility] [address] [facility] [address] [place] [address] Care Team Providers Care Outcome Analyst Name Role Phone Mike Valverde Unavailable [phone] Problems Problem Type SNOMED Code ICD Code Onset Dates Problem Status W/U Status Risk Notes Problem Chronic kidney disease, stage 3 unspecified (N18.30) Active confirmed Problem Diabetic renal disease (588045189) Type 2 diabetes mellitus with diabetic chronic kidney disease (E11.22) Active confirmed Problem Essential hypertension (12343632) Essential (primary) hypertension (I10) Active confirmed Problem Hyperlipidemia (12854274) Hyperlipidemia, unspecified (E78.5) Active confirmed Encounters Encounter Location Date Provider Diagnosis [place] [facility] [address] [facility] [address] [place] [address] 01/17/2025 Mike Valverde Chronic kidney disease, stage [...] Next Appt Details Provider Name:Mike Valverde , 03/21/2025 01:00:00 PM, [address] [facility], [facility] [place] [address], [place], [address], Progress Notes * Loan SANCHEZDOB:[birth year] (65 yo F)Acc No.[id number]:01/17/2025 Progress Notes Patient: Loan GARCIA Provider: Veronika PADGETT MD, F.Ronald.Temo.P, F.A.S.N. :1960 A ge:64 Y S ex:Female Date:01/17/2025 [place] [place] [address] Subjective: * Chief Complaints: * * Medical [...] Treatment: * Billing Information: * Visit Code: 79006 Office Visit, New Pt., Level 5. * Procedure Codes: * Electronic signature of Shanika Valverde MD on 03/14/2025 at 10:06 AM CDT Sign off status: Pending * Provider: Veronika PADGETT MD, Jason.Ronald.Temo.P, F.A.S.N. Date: 01/17/2025 Generated for Printing/Faxing/eTransmitting on: 03/14/2025 10:06 AM CDT
--- OUTSIDE RECORDS SUMMARY | 2025-03-14 10:06 | XMS_ITS | Clinical Summary ---
Author Organization [facility] Address [address] [facility] [place] [address] Care Team Providers Care Torpedo Man Name Role Phone Maurice Daniels MD Primary Care Provider [phone] Source Comments [facility] Affiliates and Associated Physician Practices is amultiple site organization consisting of ambulatory clinics and hospital sitesin [place], [place], [place] and [place]. This disclosure is being madepursuant to the Care Everywhere program and may not contain all information available regarding this patient. 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 Gender Identity Not on file Sexual Orientation Not on file Last Filed Vital Signs Vital Sign Reading Time Taken Comments Blood Pressure - - Pulse - - Temperature - - Respiratory Rate - - Oxygen Saturation - - Inhaled Oxygen Concentration - - Weight 103.4 kg (228 lb) 08/26/2019 8:04 AM SHORTAGE WORKER Height 157.5 cm (5' 2) 08/26/2019 8:04 AM SHORTAGE WORKER Body Mass Index 41.7 08/26/2019 8:04 AM SHORTAGE WORKER Plan of Treatment Health Maintenance Due Date [...] season) 2024 DEPRESSION SCREENING 08/21/2024 INFLUENZA VACCINE (#1) 2025 HEPATITIS B VACCINE Aged Out No [...] patient's age to complete this topic Insurance [facility] [address] MEDICARE [facility] SELF PAY NO INSURANCE Member Subscriber Plan / Payer (Ef fective for All Dates) Name:Loan Francisco Member ID:Not on file Relation to Subscriber:Not on file Name:LOAN FRANCISCO Subscriber ID:Not on file (Home) Address: [address] [place] [id number] Payer ID:Not on file Group ID:Not on file Type:Self Pay Address: [place], [place] MEDICARE Care Teams Torpedo Man Relationship Specialty Start Date End Date Maurice Daniels MD [address] [place] [address] PCP - General Internal Medicine 08/01/19
--- OUTSIDE RECORDS SUMMARY | 2025-03-14 10:06 | XMS_ITS ---
Author Organization [facility] Address [address] [place] [address] Care Team Providers Care Residential Mental Health Worker Name Role Phone Mike Valverde Unavailable [phone] Problems Problem Type SNOMED Code ICD Code Onset Dates Problem Status W/U Status Risk Notes Problem Coronary artery disease (07142015) CAD (coronary artery disease) (I25.10) Active confirmed Problem Gastro-esophagea l reflux disease without esophagitis (K21.9) Active confirmed Encounters Encounter Location Date Provider Diagnosis [place] [facility] [address] [facility] [address] [place] [address] 02/07/2025 Mike Valverde Chronic kidney disease, stage [...] Name:Mike Valverde , 03/21/2025 01:00:00 PM, [address], [address], [place], [address], Progress Notes * Loan SANCHEZDOB:[birth year] (65 yo F)Acc No.[id number]:02/07/2025 Progress Notes Patient: Loan GARCIA Provider: Veronika PADGETT MD, Jason.Ronald.Temo.P, F.A.S.N. :1960 A ge:65 Y S ex:Female Date:02/07/2025 Address:[address] [place], [place] [id number] Subjective: * Chief Complaints: * * Medical [...] Treatment: * Billing Information: * Visit Code: 78911 Office Visit, Est Pt., Level 4. * Procedure Codes: * Electronic signature of Shanika Valverde MD on 03/14/2025 at 10:06 AM CDT Sign off status: Pending * Provider: Veronika PADGETT MD, F.Ronald.C.P, F.A.S.N. Date: 0 02/07/2025 Generated for Printing/Faxing/eTransmitting on: 0 03/14/2025 10:06 AM CDT
--- OUTSIDE RECORDS SUMMARY | 2025-03-14 10:07 | XMS_ITS | Data Portability ---
Author Organization [place] [facility] [employer], Main Office Address [address] [place] [address] Care Team Providers Care Bookkeeping Machine Operator Name Role Phone ANABELLA DANIELS Primary Care Provider [phone] ANABELLA DANIELS Referring Provider [facility] Mothers Helper HITESH COOPER [place] 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 She has had multiple injections previously she is failing long-term conservative measures including wrist bracing ice and time. We talked about further treatment options today in detail we talked about the surgical intervention for 1st dorsal compartment release including the procedure itself and risks benefits limitations and alternatives. She would like to proceed. We will get her set up to see Dr. Celis in the near future so she can be scheduled for surgery. She voiced understanding and agree with the above plan. The patient has a contusion to her right wrist. 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 We talked about possibly doing a cortisone injection she declined she was wanting to make sure she did not have a fracture. Her x-rays today looked otherwise unremarkable. I have advised her to give it more time she can work on gentle range of motion icing and anti-inflammatori es as needed. She did want to try a course of oral prednisone we will get her set up for that. If her symptoms continue over the next few weeks she will call we will get her back in for another recheck. She voiced understanding and agreed with the above plan. [email or web address] Not available 01/30/2025 11:59:08 02/10/2025 02/10/2025 64-year-old patient presents today with left wrist De Quervain's tendinitis that has been going on for many months. She has had 3 cortisone injections, wears a brace, and did a course of oral prednisone. None of this was helpful. She presents today stating she is ready to have surgery. Physical exam: Tenderness with palpitation over the radial side of the wrist. Slight edema. Pain with Bailey's. no tenderness elsewhere around the wrist or hand. Sensation intact. Denies numbness or tingling. She has de Quervain tendinitis. The procedure would be 1st dorsal compartment release and repair. Risks, benefits, and alternatives to surgery were discussed with the patient. Risks included but are not limited to pain, stiffness, infection, injury to other structures including nerves or blood vessels, need for future surgery, and anesthesia complications. The goal of surgery is to improve symptoms but there is no guarantee of any results and it is possible the condition is worse after surgery. Patient agreed and would like to proceed. Case was discussed with Dr. Celis. [email or web address] Not available 02/10/2025 12:46:57 Plan of Treatment Reminders Order Date Submit Date Provider Last Modified By Organization Details Last Modified Time Details Appointments Post-Op 2024 09:20A M Paige Lee NP Not available Not available Not available Any 2024 08:50A M Paige Lee NP Not available Not available Not available Any 15 2024 11:00A M Anabella Daniels MD Not available Not available Not available Lab None recorded. Referral nephrolog ist referral - Please call patient to schedule an appointme nt. Thank you. 2024 025 DAISY Cooper MD (Nephrology, [address], [address], [place], [address], 01/16/2025 13:55:18 Procedures None recorded. Surgeries None recorded. Imaging XR, hand, 3 or more view 2024 025 [email or web address] [facility], [address], [place], [address], 01/30/2025 12:01:08 Medication Orders prednison e 10 mg tablets in a dose pack 2024 025 [email or web address] [id number], [address], [place], [address], 01/30/2025 11:29:48 Patient TargetsNo targets recorded. Patient InstructionsNo instructions recorded. Reason for Referral Pharmacy Technician Assistant Referral for Ch ronic kidney disease stage 2 Please call patient to schedule an appointment. Thank you. Referring Physician: Anabella Daniels, Internal Medicine, Encounter Date: 12/25/2024 Results Created Date Observation Date Name Description Value Unit Range Abnormal Flag Note LastModifiedBy Organization Detail LastModifiedTime 12/14/19 25 12/13/2024 gastr ic empty ing study (PROC ) No observ ation record ed. Not Available 2024 10:58:15 01/31/20 25 XR, hand, 3 or more view No observ ation record ed. [email or web address] [email or web address] [address] [facility], [place], [address], 01/30/2025 12:01:07 Result Notes None recorded. Problems Name Problem SNOMED Code Status Onset Date Resolution Date Notes Provider Name and Address Organization Details Recorded Time Acute bronchiti s 59654733 Completed Not Available [facility] 3 04:53:25 Pain in lower limb 27789367 Completed Not Available [facility] 3 04:53:25 Injury of lower limb 219351799 Completed Not Available [facility] 3 04:53:25 External hordeolum 8575409 Completed Not Available [facility] 3 04:53:25 Acquired trigger finger 1763751 Completed Not Available [facility] 3 04:53:25 Radiother apy follow-up 616845925 Completed Not Available [facility] 3 04:53:25 Insomnia 940290213 Active Not Available [facility] 3 06:28:19 Asthma 663531905 Active Not Available [facility] 3 06:28:19 Non-alcoh olic fatty liver 753988178 Active Not Available [facility] 3 06:28:19 Steatotic liver disease 488837343 Completed Not Available [facility] 3 04:53:26 Abdominal pain 25440796 Completed Not Available [facility] 3 04:53:26 Sciatica 29417133 Active Not Available [facility] 3 06:28:19 Gastroeso phageal reflux disease 363960532 Active Not Available [facility] 3 06:28:19 Chafing of skin 623228741 Completed Not Available [facility] 3 04:53:26 Headache 71637471 Completed Not Available [facility] 3 04:53:26 Dyspnea 742573463 Completed Not Available [facility] 3 04:53:26 Anemia 319716497 Active Not Available [facility] 3 06:28:19 Low back pain 540102138 Completed Not Available [facility] 3 04:53:27 Knee pain Completed Not Available [facility] 3 04:53:27 Changing color of pigmented skin lesion 862623472 Active Not Available [facility] 3 06:28:19 Depressiv e disorder 12178559 Active Not Available [facility] 3 06:28:19 Heart valve disorder 330696 Active Not Available [facility] 3 06:28:19 Sinusitis 52097930 Completed Not Available [facility] 3 04:53:28 Hypertens celestino disorder 17288028 Active Not Available [facility] 3 06:28:19 Memory impairmen t 735095437 Completed Not Available [facility] 3 04:53:29 Osteoarth ritis 888056488 Active Not Available [facility] 3 06:28:19 Thalassem ia 38710824 Active Not Available [facility] 3 06:28:19 Dizziness 299774129 Completed Not Available [facility] 3 04:53:29 Obesity 226438147 Active Not Available [facility] 3 06:28:19 Nausea 087369175 Completed Aye caballero, RMA null, [employer] [facility] [employer] [facility] 5 08:07:26 Diabetic periphera l neuropath y 323421859 Active Not Available [facility] 3 06:28:19 Acute urinary tract infection 545701324 Completed Aye caballero RMA null, sfilat[facility] 5 08:05:52 Pain of shoulder region 38185059 Completed Not Available [facility] 3 04:53:31 Acute conjuncti vitis 50627868 Completed Not Available [facility] 3 04:53:31 Upper respirato ry infection 91382490 Completed Not Available [facility] 3 04:53:31 Hyperlipi demia 66570821 Active Not Available [facility] 3 06:28:19 Disorder of bursa of shoulder region 00076887 Completed Not Available [facility] 3 04:53:32 Essential hypertens ion 16234974 Active Not Available [facility] 3 06:28:19 Aortic valve stenosis 01420636 Active Not Available [facility] 3 06:28:19 Diarrhea 01349874 Completed Not Available [facility] 3 04:53:32 Urinary tract infectiou s disease 44977089 Completed Aye caballero RMA null, [employer] [facility] [employer] [facility] 5 08:07:56 Diabetes mellitus 93044087 Active Not Available [facility] 3 06:28:20 Sleep apnea 92314931 Active Not Available [facility] 3 06:28:20 Urgent desire to urinate 93422608 Completed Not Available [facility] 3 04:53:34 Neck pain 86754122 Completed Not Available [facility] 3 04:53:34 Heart murmur 07707599 Active Not Available [facility] 3 06:28:[address]-assoc iated gastritis 01675247 Active Not Available [facility] 3 06:28:20 Edema of lower extremity 124336195 Completed 201701/01/2018 Not Available [facility] 3 04:53:25 Edema 012208306 Completed 201802/04/2022 Not Available [facility] 3 04:53:27 Osteopeni a 109804647 Active 2018 Not Available [facility] 3 06:28:19 Vitamin D deficienc y 77012853 Active 2018 Not Available [facility] 3 06:28:19 History of mastectom y 544318384 Active 2018 Not Available [facility] 3 06:28:19 Family history of malignant neoplasm of brain 902973461 Completed 201802/04/2022 Not Available [facility] 3 04:53:30 Carotid artery stenosis 47974636 Active 2018 Not Available [facility] 3 06:28:20 Fatigue 73736544 Completed 202002/04/2022 Not Available [facility] 3 04:53:34 Steatotic liver disease 704999716 Completed 202002/04/2022 Not Available [facility] 3 04:53:26 Adult health examinati on Active 2020 Not Available [facility] 3 06:28:19 Acute sinusitis 94180568 Active 2021 Not Available [facility] 3 06:28:19 Dysphagia 91690281 Active 2021 Not Available [facility] 3 06:28:19 Acute urinary tract infection 626685729 Completed 202106/02/2022 Aye caballero, EDE null, [place] [facility] 5 08:05:52 Candidias is of vagina 13056909 Completed 202106/02/2022 Not Available [facility] 3 04:53:33 Pain of left hip joint 40056076584 9100 Active 2022 Not Available [facility] 3 06:28:19 Urinary symptoms 537714641 Completed 202201/30/2025 Aye caballero RMA null, [place] [facility] 5 08:08:05 Acute urinary tract infection 987839762 Completed 202201/30/2025 Aye caballero RMA null, [place] [facility] 5 08:05:52 Pain of left wrist 77381068990 9102 Completed 202301/30/2025 Aye caballero RMA null, [place] [facility] 5 08:08:21 Osteoporo sis 12431151 Active 2023 Aye caballero RMA null, [place] [facility] 5 08:07:52 Pain of wrist region 50253592 Completed 202301/30/2025 Aye caballero RMA null, [place] [facility] 5 08:08:17 Tenosynov itis of left radial styloid 44705212589 388527 Active 2023 Danie Celis MD [address] [place] [address], [address] , [place] [facility] [place] [facility] 5 08:49:13 Urinary tract infectiou s disease 12145928 Completed 202301/30/2025 Aye caballero RMA null, [place] [facility] 5 08:07:56 Idiopathi c periphera l neuropath y 40128857 Active 2023 Diane rey, [place] - [facility] 4 09:12:18 Pain of left hand 92873755801 9103 Completed 202301/30/2025 Aye Crafta n, RMA null, [place] [facility] 5 08:08:26 Claustrop hobia 79781283 Active 2023 Aye Bonillabea n, RMA null, [place] [facility] 5 08:08:37 Infection of skin 171512228 Completed 202301/30/2025 Aye Maylebea n, RMA null, [facility] 5 08:07:18 Coronary arteriosc lerosis 21125551 Active 2023 Aye Bonillabea n, RMA null, [facility] 5 08:06:44 Nausea 056886490 Completed 202301/30/2025 Aye Crafta n, RMA null, [facility] 5 08:07:26 Sensorine ural hearing loss 35283139 Active 2023 Freeman Cooley CMA null, [facility] 4 15:23:08 Dysfuncti on of bilateral eustachia n tubes 25252394063 66136 Active 2023 Aye Maylebea n, RMA null, [facility] 5 08:06:48 Referred otalgia 35680163 Completed 202301/30/2025 Aye Huertaufflebea n, RMA null, [facility] 5 08:08:09 Dysfuncti on of eustachia n tube 22377756 Completed 202301/30/2025 Aye Huertaufflebea n, RMA null, [place] [facility] 5 08:06:55 Allergic rhinitis 09117917 Active 2024 Aye Stufflebea n, RMA null, [place] [facility] 5 08:05:48 Pain in throat 768029715 Completed 202401/30/2025 Aye caballero RMA null, [place] [facility] 5 08:07:48 Dysfuncti on of eustachia n tube 73602778 Completed 202401/30/2025 Aye caballero RMA null, [place] [facility] 5 08:07:21 Nausea and vomiting 42537728 Completed 202401/30/2025 Aye caballero RMA null, [place] [facility] 5 08:07:35 Chronic kidney disease stage 2 709554140 Active 2024 Aye caballero RMA null, [facility] 5 08:06:34 Pain of bilateral hands 59650540035 111288 Active 2024 LUKE JacobsonA null, [facility] 5 09:38:45 Contusion of right wrist 82150428404 755830 Active 2024 JUANI Tariq [address], [address] [address], [place], [address] , [facility] 5 11:59:33 Pain of wrist region 01767182 Active 2024 JUANI Tariq [address], [address], [place], [address] , [facility] 5 11:59:42 Ear finding 082103415 Active 2024 Anabella Daniels MD [address], [address], [place], [address] , [facility] 5 10:43:57 Problem Notes None recorded. Procedures Surgical History Date Name Laterality Status Provider Name and Address Organization Details Recorded Time 07/04/20 24 Medicare Wellness CPT Code, subsequent completed JOSE Pacheco K[facility] 07/04/2024 12:20:03 07/04/20 24 Advanced Care Planning completed Marleen Recinos RN [facility] 07/04/2024 12:23:37 06/10/20 24 Ortho - Cortisone Injection completed Paige Lee, SILVER WRAPPER [address] [facility], [address], [place], [address], [facility] 06/10/2024 11:17:39 03/18/20 22 Date of Last Colonoscopy completed Not Available [facility] 10/19/2022 04:43:18 01/19/20 19 replacement of aortic valve completed Ruth Vasquez CNA [place] [facility] 04/12/2023 15:30:13 03/17/20 17 Incise finger tendon sheath completed Not Available [facility] 10/19/2022 04:43:22 12/18/19 16 Most Recent Bone Density completed Not Available [facility] 10/19/2022 04:43:18 10/20/19 08 endoscopic retrograde pancreatography completed Ruth Vasquez CANCER REGISTRY COORDINATOR [place] [facility] 04/12/2023 15:32:01 07/21/20 06 reduction of batwing arms completed Ruth Vasquez CANCER REGISTRY COORDINATOR [place] [facility] 04/12/2023 15:35:33 06/21/20 06 Breast Biopsy completed Ruth Vasquze CANCER REGISTRY COORDINATOR [place] [facility] 04/12/2023 15:36:40 05/21/20 06 biopsy of liver completed Ruth Vasquez CANCER REGISTRY COORDINATOR [place] [facility] 04/12/2023 15:34:13 03/21/20 04 cholecystectomy completed Ruth Vasquez CANCER REGISTRY COORDINATOR [place] [facility] 04/12/2023 15:37:06 08/21/18 79 Eye Surgery completed Ruth Vasquez CANCER REGISTRY COORDINATOR [place] [facility] 04/12/2023 15:37:26 colonoscopy completed Not Available [facility] 10/19/2022 04:43:22 Cardiovascular Surgery completed Ruth Pedro, CANCER REGISTRY COORDINATOR [place] [facility] 04/12/2023 15:33:16 Breast Surgery completed Not Available [facility] 10/19/2022 04:43:22 MANAGER DIALYSIS Surgery completed Not Available [facility] 10/19/2022 04:43:22 Carpal tunnel surgery completed Not Available [facility] 10/19/2022 04:43:22 operative procedure on wrist completed EDE Jacobson [employer] 03/10/2025 16:56:06 Imaging Results None recorded. Procedure Notes None recorded. Medical Equipment None Reported. Allergies Allergen ID Allergen Name Allergen Category Reaction Reaction Severity Criticality Documentation Date Start Date Code Code System Note Provider Name and Address Organization Details Recorded Time 91690 ciproflox acin medicatio n hallucina tions nausea Not available Not available Not available 12/15/2023 2551 RxNorm Vianca Hall NP [address] [facility], [facility] [address], [place], [address] [facility] [employer] 4 16:52:22 8390 tramadol medicatio n itching Not available Not available 10/19/2022 90455 RxNorm Not Available [facility] 3 05:04:51 8391 Levaquin medicatio n hallucina tions nausea Not available Not available Not available 10/19/2022 31913 2 RxNorm Not Available [facility] 3 05:04:51 Medications Name Sig Start [...] Available doxycycli ne hyclate 100 mg capsule TAKE 1 CAPSULE BY MOUTH TWICE A DAY active Not Available Not Available No t Available atorvasta tin 20 mg tablet TAKE [...] ne 5 mg-acetam inophen 325 mg tablet TAKE 1 TABLET BY MOUTH EVERY 6 HOURS active Not Available Not Available No t Available meloxicam 15 mg tablet Take 1 [...] 1 tablet every week by oral route. 01/30 completed Not Available Not Available Not Available Advair Diskus 100 mcg-50 mcg/dose powder [...] TAKE 1 TABLET BY MOUTH EVERY DAY 01/30 completed Not Available Not Available Not Available ciproflox acin 500 mg tablet Take [...] TABLET ORAL ROUTE EVERY 8 HOURS NEEDED 01/30 completed Not Available Not Available Not Available triamcino lone acetonide 0.1 % topical [...] mouth once a day for 1 day 2024 active Not Available Not Available Not Avai lable alprazola m 0.5 mg tablet TAKE 1 [...] completed Not Available Not Available Not Available AirseedTouch Ultra Test strips USE TO TEST 3 [...] TAKE 1 TABLET BY MOUTH EVERY DAY 01/30 completed Not Available Not Available Not Available ergocalci ferol (vitamin D2) 1,250 mcg (50,000 unit) capsule TAKE 1 CAPSULE BY MOUTH ONCE A WEEK FOR 90 DAYS active Not Available Not [...] ating tablet Take 1 tablet TID prn 01/30 completed Not Available Not Available Not Available fluticaso ne propionat e 50 mcg/actua [...] completed Not Available Not Available Not Available calcitrio l 0.25 mcg capsule TAKE 1 CAPSULE BY MOUTH EVERY DAY FOR 90 DAYS active Not Available Not Available No t Available lamotrigi ne 100 mg tablet TAKE [...] -RINSE WITH WATER AND SPIT AFTER USING 01/30 completed Not Available Not Available Not Available peg 3350-elec trolytes 236 gram-22.7 4 [...] [employer]Star U-300 Insulin 24 units every night 01/30 completed Not Available Not Available Not Available Basaglar KwikPen U-100 Insulin 100 unit/mL (3 mL) subcutane ous DIAL AND INJECT 40 UNITS UNDER THE SKIN DAILY. MAX DAILY DOSE IS 40 UNITS. 2024 active Not Available Not Available Not [...] in Arterial blood by Pulse oximetry Systolic And Diastolic Provider Name and Address Organization Details Last Updated DateTime 157.48 cm 35.1 kg/m2 66362.7 4 g 97 [degF] 72 /min 98 % 98 % 110/54 mm[Hg] Aye crowley [facility] [employer] 10:44:10 Date Recorded Body height Body mass index (BMI) Body weight Pain severity - 0-10 verbal numeric rating [Score] - Reported Provider Name and Address Organization Details Last Updated DateTime 01/30/2025 157.48 cm 34.9 kg/m2 13215.14 g 8 Reema Hutson [facility] [employer] 01/30/2025 09:34:43 Date Recorded Body height Body mass index (BMI) Body weight Provider Name and Address Organization Details Last Updated DateTime 02/10/2025 157.48 cm 34.9 kg/m2 49074.14 g Ruth Vasquez CNA [employer] 02/10/2025 10:30:54 Date Recorded Body height Body mass index (BMI) Body weight Body temperature Heart rate Oxygen saturation Oxygen saturation in Arterial blood by Pulse oximetry Systolic And Diastolic Provider Name and Address Organization Details Last Updated DateTime 157.48 cm 35.1 kg/m2 43360.7 4 g 97.5 [degF] 66 /min 99 % 99 % 120/60 mm[Hg] EDE Aviles [employer] 10:13:36 Social History Question Answer Notes LastModified by Organization Details LastModified Time Tobacco Smoking Status Never Smoker Not Available [facility] 10/19/2022 04:35:32 Do You Have An Advance Directive? No [email or web address] Information not available 07/04/2024 Are You Blind Or Do You Have Difficulty Seeing? Yes Glasses, Eye Exams At [place] [id number] Information not available 10/19/2022 Is Blood Transfusion Acceptable In An Emergency? Yes [email or web address] Information not available 07/04/2024 What Is Your Level Of Caffeine Consumption? Occasional [id number] Information not available 10/19/2022 How Much Tobacco Do You Chew? None [id number] Information not available 10/19/2022 Are You Deaf Or Do You Have Serious Difficulty Hearing? Yes [email or web address] Information not available 07/04/2024 What Type Of Diet Are You Following? REGULAR [id number] [id number] Information not available 10/19/2022 Which Illicit Or Recreational Drugs Have You Used? None [email or web address] [id number] Information not available 10/19/2022 What Is The Highest Grade Or Level Of School You Have Completed Or The Highest Degree You Have Received? [id number] [email or web address] Information not available 07/04/2024 How Many Days Of Moderate To Strenuous Exercise, Like A Brisk Walk, Did You Do In The Last 7 Days? 0 [email or web address] Information not available 07/04/2024 Have There Been Any Changes To Your Family Or Social Situation? Yes 2 Grandchildren Moved In With Her In 2023 [email or web address] Information not available 07/04/2024 What Is The Fluoride Status Of Your Home? Fluoridated MIGRATION.0301 [id number] Information not available 10/19/2022 Are There Any Guns Present In Your Home? No MIGRATION.0301 [id number] Information not available 10/19/2022 Do You Use Insect Repellent Routinely? No [email or web address] Information not available 07/04/2024 Where Do You Live? [place] MIGRATION.0301 [id number] Information not available 10/19/2022 Are You Following A Low Salt Diet? No [email or web address] Information not available 07/04/2024 Do You Have A Medical Power Of Assurance Auditor? No [email or web address] Information not available 07/04/2024 What Was The Date Of Your Most Recent Tobacco Screening? 03/14/2025 Information not available 03/14/2025 How Many Children Do You Have? 0 [email or web address] Information not available 07/04/2024 Do You Have Any Pets? Yes [email or web address] Information not available 07/04/2024 What Is Your Relationship Status? Single [email or web address] Information not available 07/04/2024 Do You Use Your Seat Belt Or Car Seat Routinely? Yes [email or web address] Information not available 07/04/2024 Are You Sexually Active? No [email or web address] Information not available 07/04/2024 Do You Have Smoke And Carbon Monoxide Detectors In Your Home? Yes MIGRATION.0301 [id number] Information not available 10/19/2022 Are You Passively Exposed To Smoke? No [email or web address] Information not available 07/04/2024 Are There Any Smokers In Your House? No [email or web address] Information not available 07/04/2024 What Types Of Sporting Activities Do You Participate In? None [email or web address] Information not available 07/04/2024 Do You Use Sunscreen Routinely? No MIGRATION.0301 [id number] Information not available 10/19/2022 Has Tobacco Cessation Counseling Been Provided? No [email or web address] Information not available 07/04/2024 Have You Recently Traveled Abroad? No [email or web address] Information not available 07/04/2024 Do You Have Difficulty Walking Or Climbing Stairs? No MIGRATION.0301 [id number] Information not available 10/19/2022 Do You Have Any Dietary Restrictions? Yes Should Be On Low Sugar/carb Diet [email or web address] Information not available 07/04/2024 Sex: Female Functional Status Question Answer Note LastModified by Organizat ion Details LastModified Time Do you use any illicit or recreational drugs? No [email or web address] Information not available 07/04/2024 What is your level of alcohol consumption? None MIGRATION.[id number] 026 Information not available 10/19/2022 Are you currently employed? No [email or web address] Information not available 07/04/2024 Do you have transportation difficulties? No [email or web address] Information not available 07/04/2024 Are you able to walk? YESWOREST [email or web address] Information not available 07/04/2024 Do you have difficulty doing errands alone? No MIGRATION.[id number] 026 Information not available 10/19/2022 Are you able to care for yourself independently? Yes [email or web address] Information not available 07/04/2024 What is your occupation? Retired MIGRATION.[id number] 026 Information not available 10/19/2022 Do you have difficulty dressing, bathing, grooming, or toileting? No MIGRATION.[id number] 026 Information not available 10/19/2022 What is your exercise level? None [email or web address] Information not available 07/04/2024 Mental Status Question Answer Note LastModified by Organizat ion Details LastModified Time Do you feel stressed (tense, restless, nervous, or anxious, or unable to sleep at night)? [id number] MIGRATION.[id number] 26 Information not available 10/19/2022 Do you have difficulty concentrating, remembering or making decisions? Yes [email or web address] Information no t available 07/04/2024 Family History Relationship Description Onset Age of this Age Resolved Age Notes LastModified by Organization Details LastModified Time Mother Malignant neoplasm of lung MIGRATION.621 [id number] Not available 10/19/2022 04:43:24 Mother Malignant tumor of breast MIGRATION.145 [id number] Not available 10/19/2022 04:43:25 Father Heart disease MIGRATION.029 [id number] Not available 10/19/2022 04:43:25 Sister Complication of [...] virus, trivalent, PF 3 completed Francheska Hinojosa DOCUMENT CLERK null, [employer] 10/24/2023 10:56:43 Influenza, high-dose, quadrivalent, PF 1 completed Not Available [facility] 04/06/2023 03:45:08 SARS-COV-2 (COVID-19) vaccine, UNSPECIFIED 1 completed Francheska Hinojosa CMA null, [employer] 10/24/2023 10:56:43 SARS-COV-2 (COVID-19) vaccine, UNSPECIFIED 1 completed Francheska Hinojosa CMA null, [employer] 10/24/2023 10:56:43 SARS-COV-2 (COVID-19) vaccine, UNSPECIFIED 1 completed Not Available [facility] 04/06/2023 03:45:08 Influenza, split virus, quadrivalent, preservative 0 completed Not Available [facility] 04/06/2023 03:45:08 Tdap 1 completed Not Available [facility] 04/06/2023 03:45:08 pneumococcal polysaccharide PPV23 1 completed Not Available [facility] 04/06/2023 03:45:08 pneumococcal polysaccharide PPV23 5 completed Not Available [facility] 04/06/2023 03:45:08 Influenza, split virus, quadrivalent, PF 2 completed Not Available [facility] 04/06/2023 03:45:08 Influenza, split virus, quadrivalent, PF 9 completed Not Available [facility] 04/06/2023 03:45:08 Td (adult), 5 Lf tetanus toxoid, preservative free, adsorbed 9 completed Not Available [facility] 04/06/2023 03:45:08 Influenza, split virus, quadrivalent, PF 8 completed Francheska Hinojosa CMA null, [employer] [facility] 10/24/2023 10:56:43 Pneumococcal conjugate PCV 13 6 completed Not Available [facility] 04/06/2023 03:45:08 Influenza, split virus, quadrivalent, preservative 6 completed Not Available [facility] 04/06/2023 03:45:08 Influenza, split virus, quadrivalent, preservative 5 completed Not Available [facility] 04/06/2023 03:45:08 Influenza, split virus, trivalent, preservative 4 completed Francheska Hinojosa CMA null, [employer] [facility] 10/24/2023 10:56:43 Influenza, split virus, quadrivalent, preservative 7 completed Not Available [facility] 04/06/2023 03:45:08 pneumococcal polysaccharide PPV23 4 completed Anabella Daniels MD [address] [place] [address], [id number], [employer] 03/04/2024 13:27:44 Past Encounters Encounter ID Performer Location Encounter Start Date Encounter Closed Date Diagnosis/Indication Diagnosis SNOMED-CT Code Diagnosis ICD10 Code Diagnosis Note [id number] MD SHERLY Kenny_[facility] Internal Med [address] [place] [address] 02/05/2021 00:00:00 02/05/2021 13:17:42 [id number] MD SHERLY Kenny_[facility] [address] [place] [address] 06/04/2021 00:00:00 06/04/2021 10:30:21 [id number] MD SHERLY [facility] [address] [place] [address] 08/16/2021 00:00:00 08/16/2021 14:35:44 [id number] Anabella Daniels MD [facility] Internal [facility] [address] [place] [address] 10/06/2021 00:00:00 10/06/2021 11:25:17 [id number] Anabella Daniels MD [facility] [address] [place] [address] 02/07/2022 00:00:00 02/07/2022 11:27:43 [id number] Anabella Daniels MD [facility] [address] [place] [address] 06/06/2022 00:00:00 06/06/2022 13:04:24 [id number] Anabella Daniels MD [facility] [address] [place] [address] 08/24/2022 00:00:00 08/24/2022 15:12:50 [id number] Anabella Daniels MD S_[facility] Internal Med [address] [place] [address] 09/05/2022 00:00:00 09/05/2022 11:28:14 [id number] Anabella aDniels MD S_[facility] Internal Med [address] [place] [address] 01/05/2023 11:54:05 01/05/2023 12:51:34 Diabetes mellitus 48823189 E13.42 under control, gets eye exam, seeing endo Diabetic p eripheral neuropathy 593245884 E11.40 not on gabapentin any more due to side effects Asthma 970070139 J45.90 9 under control Essential hypertension 70375375 I10 under control Carotid ar kecia stenosis 68928239 I65.29 on asa, dopplers 11/09 Dysphagia 54753286 R13.1 0 not getting worse Depressive disorder 3548 9007 F32.9 under control, seeing psych Gastroesop hageal reflux disease 295617690 K21.9 under control with meds Heart murmur 09989771 R0 1.1 gets echo Insomnia 116097143 G47.0 0 better with meds Obesity 000813313 E66.9 advised to lose Osteoarthritis 456162153 M19.90 otc Sleep apnea 97642255 G47 .30 on cpap Vitamin D deficiency 347 83233 E55.9 otc Chronic rhinitis 5528855 6 J31.0 on montelukas t Adult heal th examination 880245933 Z00.00 Mammogram- both breast removedDex a 2016, wants to wait due covJuan Ramon oscopy 2016PCV 13 [id number] 2004FLU- OV ID- 09/22/20, 11/09/20, 05/06/21 Postmenopausal state 764 03416 Z78.0 Urinary symptoms 7536982 08 R39.9 [id number] Danie Celis MD S_[facility] [place] [address] [place] [address] 04/12/2023 14:58:45 04/12/2023 16:02:59 Pain of left hip joint 6006559272 27517 M25.070 [id number] Anabella Daniels MD [facility] [address] [place] [address] 05/16/2023 10:31:13 05/16/2023 11:16:18 Diabetes mellitus 75215767 E13.42 under control, gets eye exam, seeing endo Diabetic p eripheral neuropathy 102403068 E11.40 not on gabapentin any more due to side effects Asthma 227068911 J45.90 9 advised to use symbicort daily Essential hypertension 08376219 I10 under control Carotid ar kecia stenosis 90015420 I65.29 on asa, gets dopplers at cardiology Dysphagia 09769597 R13.1 0 stable Depressive disorder 3548 9007 F32.9 under control, seeing psych Gastroesop hageal reflux disease 364001401 K21.9 under control with meds Heart murmur 91926210 R0 1.1 gets echo Insomnia 950948851 G47.0 0 better with meds Obesity 038035367 E66.9 advised to lose Osteoarthritis 454811280 M19.90 otc Sleep apnea 32355130 G47 .30 on cpap Vitamin D deficiency 347 86319 E55.9 otc Chronic rhinitis 1043244 6 J31.0 on montelukas t Adult [facility] examination 840878967 Z00.00 Mammogram- both breast removedDex a 2015, wants to waitColono scopy 2015PCV 13 OV ID- 09/22/20, 11/09/20, 05/06/21 Postmenopausal state 764 56216 Z78.0 [id number] Anabella Daniels MD [facility] Internal Med [address] [place] [address] 10/24/2023 10:44:10 10/24/2023 12:01:20 Diabetes mellitus 96540351 E13.42 under control, gets eye exam, Diabetic p eripheral neuropathy 889534868 E11.40 not on gabapentin any more due to side effects Asthma 031527466 J45.90 9 advised to use symbicort daily Essential hypertension 37587189 I10 under control Carotid ar kecia stenosis 31061236 I65.29 on asa, gets dopplers at cardiology Dysphagia 58910262 R13.1 0 stable Depressive disorder 3548 9007 F32.9 under control, seeing psych Gastroesop hageal reflux disease 706451885 K21.9 under control with meds Insomnia 324348159 G47.0 0 better with meds Obesity 258557373 E66.9 advised to lose Osteoarthritis 626789296 M19.90 otc Sleep apnea 64346234 G47 .30 on cpap Vitamin D deficiency 347 30407 E55.9 otc Chronic rhinitis 9644463 6 J31.0 on montelukas t Adult [facility] examination 934464577 Z00.00 Mammogram- both breast removedDex a 2016, wants to waitColono scopy 2015PCV 13 [id number] OV ID- 09/22/20, 11/09/20, 05/06/21 Postmenopausal state 764 34158 Z78.0 Pain of left wrist 32410 83216 61772 M25.532 use wrist support [id number] Danie Celis MD [facility] [place] [address] [place] [address] 11/30/2023 08:49:25 11/30/2023 09:12:53 Pain of left wrist 1933085268 20813 M25.532 Tenosynovi tis of left radial styloid 3111611814 4456008 M65.4 [id number] Danie Celis MD [facility] Ortho [address] [place] [address] 12/28/2023 08:57:50 12/28/2023 09:31:17 Tenosynovitis of left radial styloid 0588345092 2168598 M65.4 Pain of left hand 885095 4025 80214 M79.784 [id number] Anabella Daniels MD [facility] Internal Med [address] [facility] [place] [address] 03/04/2024 09:47:48 03/04/2024 11:12:54 Diabetes mellitus 56978834 E13.42 under control, Diabetic p eripheral neuropathy 339632927 E11.40 not on gabapentin any more due to side effects Asthma 256904308 J45.90 9 alb inhaler Essential hypertension 50966659 I10 under control Carotid ar kecia stenosis 38433879 I65.29 on asa, gets dopplers at cardiology Dysphagia 74512252 R13.1 0 no more symptoms Depressive disorder 3548 9007 F32.9 under control, seeing psych Gastroesop hageal reflux disease 015547645 K21.9 under control with meds Insomnia 038183795 G47.0 0 better with meds Obesity 784794152 E66.9 advised to lose Osteoarthritis 081616269 M19.90 otc Sleep apnea 11426031 G47 .30 on cpap Vitamin D deficiency 347 71943 E55.9 otc Chronic rhinitis 0283847 6 J31.0 on montelukas t Adult heal th examination 843768953 Z00.00 Mammogram- both breast removedDex a 11/11Colono scopy 2016PCV 13 6895MLH67 2004,FLU- 3COV ID- 09/22/20, 11/09/20, 05/06/21 Anemia 133219306 D64.9 Aortic valve stenosis 60 010705 I35.0 s/p valve replacemen t Hyperlipidemia 96426865 E78.5 Non-alcoho lic fatty liver 441484848 K76.0 advised to lose weight Osteopenia 548173660 M85 .80 on otc Infection of skin 690408 000 L08.9 Coronary arteriosclerosis 52612472 I25.10 s/p CABG Administra tion of pneumococcal vaccine 21932354 Z23 [id number] Maggie Vincent MD [facility] E[facility] [place] [address] [place] [address] 06/06/2024 14:47:52 06/06/2024 15:33:04 Dysfunction of bilateral eustachian tubes 3494441747 792297 H69.93 Sensorineu ral hearing loss 18767442 H90.5 [id number] Danie Celis MD S_[facility] [address] 06/10/2024 10:19:09 06/10/2024 10:41:38 Tenosynovitis of left radial styloid 8581637667 1578650 M65.4 [id number] Maggie Vincent MD [facility] [place] [address] [place] [address] 06/20/2024 14:38:43 06/20/2024 15:26:57 Dysfunction of bilateral eustachian tubes 9224306987 537780 H69.93 [id number] Anabella Daniels MD [facility] Internal Med [address] [place] [address] 07/04/2024 09:46:50 07/04/2024 10:59:22 Diabetes mellitus 02472842 E13.42 under control, Diabetic p eripheral neuropathy 214824633 E11.40 not on gabapentin any more due to side effects Asthma 358546892 J45.90 9 alb inhaler prn, under control Essential hypertension 70754418 I10 under control Carotid ar kecia stenosis 58005044 I65.29 on asa, gets dopplers at cardiology Dysphagia 27957727 R13.1 0 no more symptoms Depressive disorder 3548 9007 F32.9 under control, seeing psych Gastroesop hageal reflux disease 756376566 K21.9 under control with meds Insomnia 656409326 G47.0 0 better with meds Obesity 843892393 E66.9 advised to lose Osteoarthritis 795741350 M19.90 otc Sleep apnea 05426320 G47 .30 on cpap, compliant Vitamin D deficiency 347 39400 E55.9 otc Chronic rhinitis 8566655 6 J31.0 on montelukas t Adult heal th examination 101299302 Z00.00 Mammogram- both breast removedDex a 11/11Colono scopy 2016PCV 13 [id number] 2004,FLU- OV ID- 09/22/20, 11/09/20, 05/06/21 Anemia 070324926 D64.9 stable Aortic valve stenosis 60 736419 I35.0 s/p valve replacemen t Hyperlipidemia 16028971 E78.5 stable Non-alcoho lic fatty liver 181485413 K76.0 advised to lose weight Osteopenia 057666560 M85 .80 on otc Coronary arteriosclerosis 11861205 I25.10 s/p CABG Screening for disorder 631660468 Z13.9 [id number] Maggie Vincent MD [facility] E[facility] [place] [address] [place] [address] 07/24/2024 12:04:01 08/15/2024 10:05:16 Dysfunction of bilateral eustachian tubes 4499985039 828516 H69.93 Dysfunctio n of eustachian tube 76873963 H69.93 [id number] Maggie Vincent MD [facility] E[facility] [place] [address] [place] [address] 08/27/2024 10:45:03 08/27/2024 11:18:24 Postoperative visit 952120714 Z48.89 08/19/2024 postoperat celestino from a bilateral myringotom y with bilateral Eustachian tube balloon dilation. Advised use of Flonase nasal spray 1-2 squirts per nostril daily. She notes that she does have Flonase at home. Follow-up as needed. [id number] Anabella Daniels MD [facility] Internal Med [address] [place] [address] 09/11/2024 15:51:00 09/11/2024 16:29:59 Nausea and vomiting 55939057 R11.2 needs EGD [id number] Maggie Vincent MD [facility] ENT [place] [address] [place] [address] 10/10/2024 13:58:42 10/15/2024 12:17:37 Dysfunction of bilateral eustachian tubes 4143366612 390558 H69.93 [id number] Maggie Vincent MD [facility] E[facility] [place] [address] [place] [address] 11/07/2024 12:08:05 11/13/2024 15:43:31 Dysfunction of bilateral eustachian tubes 2906405849 714998 H69.93 [id number] Anabella Daniels MD [facility] Internal Med [address] [place] [address] 12/25/2024 10:34:27 12/25/2024 11:52:09 Diabetes mellitus 22651380 E13.42 under control, Diabetic p eripheral neuropathy 965489224 E11.40 not on gabapentin any more due to side effects Asthma 887926640 J45.90 9 under control Essential hypertension 57445734 I10 under control Carotid ar kecia stenosis 60857893 I65.29 on asa, gets dopplers at cardiology Dysphagia 65005428 R13.1 0 no more symptoms Depressive disorder 3548 9007 F32.9 under control, seeing psych Gastroesop hageal reflux disease 870328744 K21.9 under control with meds Insomnia 022666492 G47.0 0 better with meds Obesity 452313719 E66.9 advised to lose more Osteoarthritis 063432761 M19.90 otc Sleep apnea 32510382 G47 .30 on cpap, compliant Vitamin D deficiency 347 90103 E55.9 otc Chronic rhinitis 7595827 6 J31.0 on montelukas t Adult heal th examination 518595939 Z00.00 Mammogram- both breast removedDex a 11/11Colono scopy 2016PCV 13 [id number] 2005Pneumo vax 23- 03/04/2024 FLU- 3COV ID- 09/22/20, 11/09/20, 05/06/21 Anemia 187339244 D64.9 stable Aortic valve stenosis 60 691938 I35.0 s/p valve replacemen t Hyperlipidemia 57807808 E78.5 stable Non-alcoho lic fatty liver 171734629 K76.0 advised to lose more weight Osteopenia 662158833 M85 .80 on otc Coronary arteriosclerosis 98996221 I25.10 s/p CABG Chronic ki dney disease stage 2 955532192 N18.2 [id number] Danie Celis MD S_[address] [address] 01/30/2025 09:14:14 01/30/2025 10:05:12 Pain of bilateral hands 8838968042 5507496 M79.641 M79.642 Tenosynovi tis of left radial styloid 4251023432 6935265 M65.4 Contusion of right wrist 9671609144 3583714 S60.211A Pain of wrist region 566 14512 M25.771 [id number] Danie Celis MD S_[address] [address] 02/10/2025 10:28:42 02/10/2025 10:59:23 Tenosynovitis of left radial styloid 0035789765 0591064 M65.4 [id number] Anabella Daniels MD [facility] [address] [place] [address] 02/27/2025 09:58:28 02/27/2025 11:37:44 Preoperative state 20915811 Z01.818 stable DM, HTN and heart diseasewil l obtain labs just done by nephrology she is low risk Ear finding 881923148 R6 8.89 due to rhinitis [id number] Dan[facility]is [facility] [address] [place] [address] 03/14/2025 10:11:46 03/14/2025 10:39:31 Tenosynovitis of left radial styloid 6360095177 6656699 M65.4 Health Concerns Section Related Observation LastModified by Organization Detai ls LastModified Time None Recorded Concern Status LastModified by Organization Details LastModified Time None Recorded Advance Directives Directive N: Payers Insurance Date Sequence Insurance Name Policy Number Policy Boo Covered Member ID Boo Member ID Guarantor Name 02/26/2025 1 [place] Loan Cardenas Divietro [id number] [place] A Divietro 03/12/[address] [facility] (MEDICARE SUPPLEMENT) PLAN F [place] A Divietro [id number] Sanita A Divietro 03/12/2025 [employer] - DMEPOS ASSIGNED (MEDICARE DME REGION B) [place] A Divietro [id number] Sanita A Divietro Notes Date Note Type Note Provider Name and Address Organization Details Recorded Time text/html Pt here today for a follow up. taking meds, no side effectsPT IS FASTING ( Medicare/[facility] ) Dysphagia-had trouble swallowing, had esophagus stretched in 2018, and again in [address] Germain, no more symptoms, had EGD in 01/12 Hypertension- on meds, under controlMeds-Losartan 50 mg qd Diabetes- does accu checks some times, running 134 under control watching diet, seeing Dr ChatterjeeA1C- 6.5 in 09/14Meds- Trulicity 0.75 mg/0.5 ML, Metformin 1000 mg BIDEye exam at [facility] Diabetic Neuropathy- not on gabapentin, symptoms [...] CARDIAC WORK UP Anabella Daniels MD [address] [facility], [facility] [address], [place], [address], [facility] [employer] 12/25/2024 11:16:20 5 text/html the patient returns with bilateral hand/wrist pain. She has chronic radial styloid tenosynovitis she has had about 4 injections there over the years. She states her last injection was done June 10, 2024. This gave her good relief for a few weeks however her pain quickly returned. She states she has had no new trauma or injury she has pain with gripping or trying to do anything heavy repetitive with her left wrist. She is very tender over the 1st dorsal compartment. We have talked about possible surgical options previously at this point I think it is time to go ahead surgical release this. She has thought about it as well and would like to proceed. We talked about the surgery options in detail today and other treatment options as well. The patient has a new injury to her right wrist. She states 3 weeks ago she was moving some debris from her yd a branch from a tree hit her right wrist dorsally while she was moving debris. She developed a little bruising there she now has some pain that is been ongoing she is concerned about that she would like to have this x-rayed and reviewed today. She denies any loss of motion no pain with gripping or grasping her main complaint is some aching pain with tenderness over the dorsum of the wrist on the radial side. She did not develop any large effusion or swelling has no loss of motion. She comes in today for initial evaluation treatment of her right wrist injury as well. A new past medical history sheet was reviewed and signed on the intake sheet of today's date drug allergies current medications family social history previous surgical history 10 point review of systems was reviewed and discussed in detail today with the patient. JUANI Tariq [address], [place], [address], [employer] 01/30/2025 12:02:12 5 text/html ROS as noted in the HPI Pt is here today for a surgical clearance.She is scheduled for Left extensor tendon release on 03/04with Dr. CelisRecently had A1c done and was 5.2 at endo Would also like both ears looked at. Always feeling full. Tried to have tubes in her ears last year but her body rejected them Hypertension- on meds, under controlLosartan 50 mg qd Diabetic Neuropathy- not on gabapentin, symptoms are better, had NCS in the past. Osteopenia- on medsMeds- Alendronate 70mg once a week GERD- symptoms under controlMeds- Pantoprazole 20 mg bid Depression-, seeing psych dr Burns . anxiety and mood is under control.Meds- Lamotrigine 100 mg HS, Alprazolam 0.5 qid prn , TopiramateSleep apnea- on cpap, sleep study done 2017 Fatty liver- improvedAsthma- under control, seeing pulmwas on Symbicort bid, alb inhaler and nebs Vit D def- to take otcCAD-coronary artery bypass graft x 1 in 03/08, no symptoms , Anabella Daniels MD [address], [place], [address], [employer] 02/27/2025 10:44:29 OBGyn Episode No OBEpisode recorded.
--- OUTSIDE RECORDS SUMMARY | 2025-03-14 10:07 | XMS_ITS | Clinical Summary ---
Author Organization [facility] Address [address] [place] [address] Phone Care Team Providers Care Key Cutter Name Role Phone Maurice Daniels MD Primary Care Provider [phone] Jeremias Grewal MD Unavailable [phone] Brennen Maldonado MD Unavailable [phone] Alonso Antunez DNP Unavailable Dejuan Butterfield MD Unavailable [phone] John Avila MD Unavailable Vin Oliver MD Unavailable [phone] Kvng Valverde MD Unavailable Prabhu Harp NP Unavailable Ary Spangler OT Unavailable [phone] Allergies Active Allergy Reactions Criticality Noted Date Comments Ciprofloxacin Hallucinations,Nausea only Medium 2024 Levofloxacin Hallucinations,Nause a only,Other (See comments) Medium [...] Active Problems Problem Noted Date Diagnosed Date Pseudophakia of both eyes 02/24/2025 Assessment & Plan (02/24/2025 8:53 AM CDT): -s/p CEIOL and YAG cap OU -new MRx issued to pt today; agree with Dr. Ayoub recommendations of FL-41 tint -follow PVD (posterior vitreous detachment), bilateral 0 02/24/2025 Assessment & Plan (02/24/2025 8:52 AM CDT): -no retinal h/b/t OU -s/s RD/RT discussed; RTC MAURA if any symptoms arise -follow Cortical visual impairment 02/24/2025 Assessment & Plan (02/24/2025 8:52 AM CDT): -follows with Dr. Ayoub annually Nonalcoholic fatty liver 05/18/2023 Memory impairment 05/18/2023 [...] 01/04/2014 Overview (11/23/2016): DMII WO CMP UNCNTRLD Assessment & Plan (02/24/2025 8:53 AM CDT): -no diabetic retinopathy noted on today's examination -ed pt on tight BG control -follow Pure hypercholesterolemia 01/04/2014 Overview (11/26/2016): PURE HYPERCHOLESTEROLEM Nonrheumatic aortic (valve) stenosis 07/08/2013 Depression 12/20/2007 Resolved Problems Problem Noted Date Diagnosed Date Resolved Date Aortic valve stenosis 12/04/20182022 Overview (12/04/2018): Added automatically from request for surgery [id number] Encounters Date Type Department Care Team Description 03/12/2025 9:00 AM CDT Therapy [facility] [address] [place] [address] Ary Spangler, VANESSA Cortical visual impairment (Primary Dx) 03/10/2025 12:01 PM CDT - 03/10/2025 11:59 PM CDT Hospital Encounter [facility] [address] [place] [address] Discharge Disposition: Discharge to home or self care 03/10/2025 12:00 PM CDT - 03/10/2025 11:59 PM CDT Hospital Encounter [facility] [address] [place] [address] Mild cognitive impairment Discharge Disposition: Discharge to home or self care 02/24/2025 8:00 AM CDT Office Visit [facility] [address] [address] Yamilex Serrano, OD Type 2 diabetes mellitus without complication, without long-term current use of insulin (HCC) (Primary Dx); Pseudophakia of both eyes; PVD (posterior vitreous detachment), bilateral; Cortical visual impairment 02/11/2025 9:00 AM CDT Therapy [facility] [address] [place] [phone] Ary Spangler OT Cortical visual impairment (Primary Dx) 02/11/2025 Plan of Care Documentation [facility] [address] [place] [phone] 01/29/2025 9:00 AM CDT Therapy [facility] [address] [place] [phone] Ary Spangler OT Cortical visual impairment (Primary Dx) 01/24/2025 4:30 PM CDT Office Visit [facility] [address] [place] [address] 6th [place] [address] [place] [address] Asiya Chamberlain MD Mild cognitive impairment (Primary Dx) 01/07/2025 9:00 AM CDT Therapy [facility] [address] [place] [phone] Ary Spangler, OT Cortical visual impairment (Primary Dx) 12/24/2024 9:00 AM CDT Therapy [facility] [address] [address] Ary Spangler, OT Cortical visual impairment (Primary Dx) 12/17/2024 10:30 AM CDT Office Visit [facility] [address] [place] [phone] Alonso Antunez DNP Beta thalassemia minor (Primary Dx); Urinary frequency 12/17/2024 10:15 AM CDT Lab 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 Gender Identity Not on file Sexual Orientation Not on file Obstetrics History Last Filed Vital Signs Vital Sign Reading Time Taken Comments Blood Pressure 136/71 01/24/2025 4:27 PM CDT Pulse 70 01/24/2025 4:27 PM CDT Temperature 36.6 C (97.8 F) 12/17/2024 10:09 AM CDT Respiratory Rate 17 12/17/2024 10:09 AM CDT Oxygen Saturation 100% 12/17/2024 10:09 AM CDT Inhaled Oxygen Concentration - - Weight 84.8 kg (187 lb) 03/10/2025 1:45 PM CDT Height 154.9 cm (5' 1) 03/10/2025 1:45 PM CDT Body Mass Index 35.33 03/10/2025 1:45 PM CDT Plan of Treatment Health Maintenance Due Date Last Done Comments Albumin Creatinine Ratio, Urine 1960 Breast Cancer Screening-Mammogram 1960 Colon Cancer Screening-Colonoscopy 1960 Depression Screening 1960 Hepatitis C Screening 1960 Foot Exam 1960 Meningococcal B Vaccine (1 o f 5 - Increased Risk) 01/23/1968 Hepatitis B Screening 01/23/1976 Zoster Vaccine (1 of 2) 01/23/2008 DTaP/Tdap/Td Vaccine (1 - Tdap) 04/03/2019 9 Hemoglobin A1C 07/03/2019 12/31/2018 Lipid Panel 01/21/2020 01/20/2019 Well Visit 65+ 2023 Osteoporosis Screening-Bone Density Scan 03/11/2023 03/11/2021 Covid-19 Vaccine ( season) 2024 06/05/2023, 05/03/2022, 12/06/2021, Additional history exists Influenza Vaccine (#1) 2025 , 06/06/2022, 05/14/2021, Additional history exists Fall Risk Assessment 09/10/2025 09/10/2024, 05/09/20 22 eGFR 12/17/2025 12/17/2024, 03/0 10/2024, 06/18/2024, Additional history exists Dilated Eye Exam 02/24/2026 02/24/2025, 05/27/2024 Pneumococcal vaccine 65+ Completed 024, 06/06/2018, 07/06/2016 Medical Devices Implanted Type Area Territory Outside Sales Manager Device Identifier Shelf Expiration Date Model / Serial / Lot [employer] [id number] Inspiris Resilia Leaflet Sewing Ring 21mm Valve Aortic Bovine - [id number] - [id number] Implanted:Qty: 1 on 01/18/2019 by Jeremias Grewal MD at [facility] N/A: Heart [employer] 09/06/2020 [id number] / [id number] / Description:Aortic Valve Procedures Procedure Name Priority Date/Time Associated Diagnosis Comments PET/CT AMYLOID BRAIN Schedule Routine, Read Routine (OP Routine) 03/10/2025 2:21 PM CDT Mild cognitive impairment URINALYSIS AND REFLEX TO MICROSCOPIC AND CULTURE Routine 12/17/2024 11:01 AM CDT Urinary frequency EGFR Routine 12/17/2024 10:02 AM CDT Beta thalassemia minor DIFFERENTIAL AUTO Routine 12/17/2024 10: 02 AM CDT Beta thalassemia minor CBC WITH AUTO DIFFERENTIAL Routine 12/17/2024 10:02 AM CDT Beta thalassemia minor COMPREHENSIVE METABOLIC PANEL Routine 12/17/2024 10:02 AM CDT Beta thalassemia minor LIPID PANEL Routine 01/20/2019 2:19 AM CDT HEMOGLOBIN A1C Routine 12/31/2018 1:30 PM CDT Preop testing from Last 3 Months or Most Recently Relevant to Health Maintenance Results * PET/CT Amyloid Brain (03/10/2025 2:21 PM CDT) Anatomical Region Laterality Modality Positron Emissio n Tomography (PET) 03/10/2025 4:03 PM CDT Impressions 03/10/2025 5:16 PM CDT Negative amyloid-PET study, indicating no to sparse beta-amyloid neuritic plaques. General comments on amyloid-PET interpretation: A negative amyloid-PET study indicates sparse to no neuritic plaques and is inconsistent with Alzheimer disease at the time of the study. A negative study reduces the likelihood that the patient's cognitive impairment is due to Alzheimer disease. A positive amyloid-PET study indicates moderate to frequent neuritic plaques which is the amount present in patients with Alzheimer disease. However, a positive amyloid-PET study does not establish the diagnosis of Alzheimer disease. Moderate to frequent neuritic plaques can also be present in patients with other neurological conditions as well as in older people with normal cognition. Dictated by: Megan Varghese MD The radiology attending physician has personally reviewed this study, and had reviewed and/or edited this written report and agrees with it. Electronically signed by: DO Kemal Crespo 03/10/2025 5:16 PM CDT EXAMINATION: BRAIN AMYLOID-PET/CT IMAGING DATE OF STUDY: 03/10/2025 SCANNER: [facility] Needish (NV1). RADIOPHARMACEUTICAL: 9.5 mCi F-18 florbetapir i.v. HISTORY: 65-year-old woman undergoing evaluation for cognitive impairment . She has had one year history of slowly progressive cognitive decline TECHNIQUE: At 10 minutes after injection of tracer, non-contrast CT images of the head were obtained for attenuation correction and for fusion with emission PET images to allow for anatomical localization of PET findings. Standard emission PET imaging of the brain was then performed. The study was interpreted on the [employer] workstation. COMPARISON CT/MRI: MRI dated 07/21/2024 FINDINGS: There is normal cortical-white matter contrast in the cerebellum. There is normal cortical-white matter contrast throughout the cerebrum. There are no foci of increased cortical activity. Incidental CT findings: Dental restorations.. Procedure Note Ken Sierra DO - 03/10/2025 EXAMINATION: BRAIN AMYLOID-PET/CT IMAGING DATE OF STUDY: 03/10/2025 SCANNER: [facility] PET Vision (NV1). RADIOPHARMACEUTICAL: 9.5 mCi F-18 florbetapir i.v. HISTORY: 65-year-old woman undergoing evaluation for cognitive impairment . She has had one year history of slowly progressive cognitive decline TECHNIQUE: At 10 minutes after injection of tracer, non-contrast CT images of the head were obtained for attenuation correction and for fusion with emission PET images to allow for anatomical localization of PET findings. Standard emission PET imaging of the brain was then performed. The study was interpreted on the [employer] workstation. COMPARISON CT/MRI: MRI dated 07/21/2024 FINDINGS: There is normal cortical-white matter contrast in the cerebellum. There is normal cortical-white matter contrast throughout the cerebrum. There are no foci of increased cortical activity. Incidental CT findings: Dental restorations.. IMPRESSION: Negative amyloid-PET study, indicating no to sparse beta-amyloid neuritic plaques. General comments on amyloid-PET interpretation: A negative amyloid-PET study indicates sparse to no neuritic plaques and is inconsistent with Alzheimer disease at the time of the study. A negative study reduces the likelihood that the patient's cognitive impairment is due to Alzheimer disease. A positive amyloid-PET study indicates moderate to frequent neuritic plaques which is the amount present in patients with Alzheimer disease. However, a positive amyloid-PET study does not establish the diagnosis of Alzheimer disease. Moderate to frequent neuritic plaques can also be present in patients with other neurological conditions as well as in older people with normal cognition. Dictated by: Megan Varghese MD The radiology attending physician has personally reviewed this study, and had reviewed and/or edited this written report and agrees with it. Electronically signed by: Ken Sierra DO Asiya Chamberlain MD IMG PET PROCEDURES F inal Result * Urinalysis reflex to microscopic and culture [...] tendency for uric acid stone formation. Source: [facility] Current Interpretive Data was [...] CDT 12/17/2024 11:43 AM CDT Alonso Antunez [facility] MICROBIOLOGY - GENERA L ORDERABLES Final Result [facility] [address] Department [place] [address] * (ABNORMAL) eGFR (12/17/2024 10:02 AM CDT) [...] was last reviewed 2021. Testing performed by: [facility] [place] [address] Blood 12/17/2024 10:0 2 AM CDT 12/17/2024 10:02 AM CDT us Brennen Maldonado MD LAB BLOOD ORDERABLES Fin al Result [facility] [address] [address] [place] [address] * (ABNORMAL) Differential, auto (12/17/2024 10:02 AM CDT) Neutrophil abs 7.57(H) 1.50 - 6.50 K/cumm Comment:Testing performed by : [facility] [place] [address] Imm gran abs 0.03 0.00 - 0.10 K/cumm CERNER Comment:Testing performed by : [facility] [place] [address] Lymphocyte abs 2.26 0.80 - 3.30 K/cumm CERNER Comment:Testing performed by : [facility] [place] [address] Monocyte abs 0.72 0.20 - 0.80 K/cumm CERNER Comment:Testing performed by : [facility] [place] [address] Eosinophil abs 0.37 0.00 - 0.50 K/cumm CERNER Comment:Testing performed by : [facility] [place] [address] Basophil abs 0.06 0.00 - 0.10 K/cumm CERNER Comment:Testing performed by : [facility] [place] [address] Neutrophil pct 68.8 % CERNER Comment: Interpretive Data Percent cell count reference ranges are not reported, since discordance with absolute values may lead to misinterpretation of CBC data. Current Interpretive Data was last revised on 2017. Testing performed by: [facility] [place] [address] Imm gran pct 0.3 % CERNER Comment: Interpretive Data Percent cell count reference ranges are not reported, since discordance with absolute values may lead to misinterpretation of CBC data. Current Interpretive Data was last revised on 2017. Testing performed by: [facility] [place] [address] Lymphocyte pct 20.5 % CERNER Comment: Interpretive Data Percent cell count reference ranges are not reported, since discordance with absolute values may lead to misinterpretation of CBC data. Current Interpretive Data was last revised on 2017. Testing performed by: [facility] [place] [address] Monocyte pct 6.5 % CERNER Comment: Interpretive Data Percent cell count reference ranges are not reported, since discordance with absolute values may lead to misinterpretation of CBC data. Current Interpretive Data was last revised on 2017. Testing performed by: [facility] [place] [address] Eosinophil pct 3.4 % CERNER Comment: Interpretive Data Percent cell count reference ranges are not reported, since discordance with absolute values may lead to misinterpretation of CBC data. Current Interpretive Data was last revised on 2017. Testing performed by: [facility] [place] [address] Basophil pct 0.5 % CERNER Comment: Interpretive Data Percent cell count reference ranges are not reported, since discordance with absolute values may lead to misinterpretation of CBC data. Current Interpretive Data was last revised on 2017. Testing performed by: [facility] [place] [address] Blood 12/17/2024 10:0 2 AM CDT 12/17/2024 10:02 AM CDT us Brennen Maldonado MD LAB BLOOD ORDERABLES Fin al Result [facility] [address] [address] Department [place] [address] * (ABNORMAL) CBC with auto differential (12/17/2024 10:02 AM CDT) WBC 11.01(H) 3.80 - 9.90 K/cumm Comment:Testing performed by : [facility] [place] [address] Hgb 10.5(L) 11.9 - 15.5 g/dL CERNER CH Comment:Testing performed by : [facility] [place] [address] Hct 33.7(L) 35.6 - 45.5 % CERNER CH Comment:Testing performed by : [facility] [place] [address] Plt 263 150 - 400 K/cumm CERNER CH Comment:Testing performed by : [facility] [place] [address] MPV 9.5 9.1 - 12.3 fL CERNER CH Comment:Testing performed by : [facility] [place] [address] RBC 4.47 3.90 - 5.20 M/cumm CERNER CH Comment:Testing performed by : [facility] [place] [address] MCV 75.4(L) 81.3 - 96.4 fL CERNER CH Comment:Testing performed by : [facility] [place] [address] MCH 23.5(L) 27.1 - 33.3 pg CERNER CH Comment:Testing performed by : [facility] [place] [address] MCHC 31.2(L) 32.3 - 35.7 g/dL CERNER CH Comment:Testing performed by : [facility] [place] [address] RDW CV 15.3(H) 11.1 - 14.9 % CERNER CH Comment:Testing performed by : [facility] [place] [address] RDW SD 41.9 35.7 - 48.1 fL CERNER CH Comment:Testing performed by : [facility] [place] [address] NRBC abs 0.00 0.00 - 0.01 K/cumm CERNER CH Comment:Testing performed by : [facility] [place] [address] ANC Prelim 7.57(H) 1.50 - 6.50 K/cumm CERNER CH Comment: Interpretive Data The rapid ANC is a preliminary automated count and may vary from the final ANC (Neut Abs) reported in the WBC differential that follows. Current interpretive data was last revised 2024. Testing performed by: [facility] [place] [address] Blood 12/17/2024 10:0 2 AM CDT 12/17/2024 10:02 AM CDT us Brennen Maldonado MD LAB BLOOD ORDERABLES Fin al Result [facility] [address] [address] Department [place] [address] * (ABNORMAL) Comprehensive metabolic panel (12/17/2024 10:02 AM CDT) Sodium 141 135 - 145 mmol/L Comment:Testing performed by : [facility] [place] [address] Potassium, pl 4.9 3.3 - 4.9 mmol/L [facility]Testing performed by : [facility] [place] [address] Chloride 104 97 - 110 mmol/L CERLYDIA Comment:Testing performed by : [facility] [place] [address] CO2 24 22 - 32 mmol/L CERLYDIA Comment:Testing performed by : [facility] [place] [address] Anion gap 13 2 - 15 mmol/L [facility] Comment:Testing performed by : [facility] [place] [address] BUN 13 6 - 25 mg/dL [facility] Comment:Testing performed by : [facility] [place] [address] Creatinine 1.23(H) 0.60 - 1.10 mg/dL [facility] Comment:Testing performed by : [facility] [place] [address] Glucose 94 70 - 199 mg/dL [facility] Comment: Interpretive Data Fasting glucose >/= 126 [...] classification and Diagnosis of Diabetes Diabetes Care 202; 46: S19-S40. Current interpretive data was last revised 2022. Testing performed by: [facility] [place] [address] Calcium 9.4 8.5 - 10.3 mg/dL CERNER CH Comment:Testing performed by : [facility] [place] [address] Bilirubin, total 0.4 0.1 - 1.2 mg/dL CERNER CH Comment:Testing performed by : [facility] [place] [address] Protein, pl 7.0 6.5 - 8.5 g/dL CERNER CH Comment:Testing performed by : [facility] [place] [address] Albumin 4.2 3.5 - 5.0 g/dL CERNER CH Comment:Testing performed by : [facility] [place] [address] Alk phos 83 40 - 130 Units/L CERNER CH Comment:Testing performed by : [facility] [place] [address] ALT 10 7 - 45 Units/L CERNER CH Comment:Testing performed by : [facility] [place] [address] AST 15 10 - 45 Units/L CERNER CH Comment:Testing performed by : [facility] [place] [address] Blood 12/17/2024 10:0 2 AM CDT 12/17/2024 10:02 AM CDT us Brennen Maldonado MD LAB BLOOD ORDERABLES Fin al Result [facility] [address] [address] Department [place] [address] * Lipid panel (01/20/2019 2:19 AM CDT) Cholesterol 93 30 - 199 mg/dL ROS[facility] Comment: Interpretive Data Ages < [...] BLOOD ORDERABLES Final Resu lt [facility] [address] [place] [address] * (ABNORMAL) Hemoglobin A1c (12/31/2018 1:30 PM CDT) Hgb A1C 7.6(H) 4.0 - 5.6 % [facility] JOHN Estimated Average Glucose 171 mg/dL [facility] JOHN Comment: The ADA recommends reporting an estimated Average Glucose (eAG) with all Hemoglobin A1c results using the equation derived from a study of 507 normal and diabetic adults. Minority populations were underrepresented and children were not included. (Diabetes Care 31:1000-8924, 2008). The eAG is not equivalent to a fasting glucose. Blood specimen (specimen) 12/31/2018 1:30 PM CDT 12/31/2018 3:16 PM CDT Narrative [facility] CH - 12/31/2018 5:03 PM CDT Jeremias Grewal MD LAB BLOOD ORDERABLES Final R esult [facility] [address] Department [place] [address] from Last 3 Months or Most Recently Relevant to Health Maintenance Insurance MEDICARE [facility] Address: [address] [address] [facility] MEDICARE [facility] MEDICARE MEDICARE [facility] [place] [address] Advance Directives For more information, please contact: [phone] * Full Code (Latest Code Status on File) Date Activated Date Inactivated Comments 01/29/2019 6:44 PM 02/08/2019 10:55 PM * Full Code Date Activated Date Inactivated Comments 01/18/2019 2:27 PM 01/29/2019 6:14 PM Care Teams Key Cutter Relationship Specialty Start Date End Date Maurice Daniels MD PCP - General 12/05/17 Jeremias Grewal MD Surgeon Cardiothoracic Surgery 10/07/19 Brennen Maldonado MD [address] [place] [address] Consulting Physician Hematology and Oncology 05/18/23 Alonso Antunez DNP [address] [place] [address] Nurse Practitioner Hematology and Oncology 05/18/23 Dejuan Butterfield MD [address] [facility] [address] [place] [address] Referring Physician Ophthalmology 01/11/24 John Avila MD [address] [facility] [address] [address] Referring Physician Obstetrics and Gynecology 05/27/24 Vin Oliver MD [address] [facility] [place] [address] Referring Physician Psychiatry 05/27/24 [place] [address] [address] Consulting Physician Cardiology 05/27/24 Prabhu Harp NP [address] [facility] [address] [place], [place] [id number] Nurse Practitioner Sleep Medicine 05/27/24 Ary Spangler OT [address] [address] Occupational Therapist Occupational Therapy 09/10/24
--- OUTSIDE RECORDS SUMMARY | 2025-03-14 10:07 | XMS_ITS | Patient Health Record ---
Author Organization [facility] Address [address] [facility] [address] [place] [address] Care Team Providers Care Line Dancer Name Role Phone Abram Mike Unavailable [phone] Reason For Referral No Information Medications Medication SIG (Take, Route, Frequency, Duration) Notes Start Date End Date Status Ergocalciferol 1.25 MG (33328 UT) 1 capsule Orally Once a week; Duration: 90 days 02/07/2025 Active Calcitriol 0.25 MCG 1 capsule Orally Onc e a day; Duration: 90 day(s) 02/07/2025 11/04/2025 Active Problems Problem Type SNOMED Code ICD Code Onset Dates Problem Status W/U Status Risk Notes Problem Diabetic renal disease (647958264) Type 2 diabetes mellitus with diabetic chronic kidney disease (E11.22) Active confirmed Problem Hyperlipidemia (37331880) Hyperlipidemia, unspecified (E78.5) Active confirmed Problem Gastro-esophageal reflux disease without esophagitis (456650289) Gastro-esophagea l reflux disease without esophagitis (K21.9) Active confirmed Problem Essential hypertension (99324561) Essential (primary) hypertension (I10) Active confirmed Problem Chronic kidney disease stage 3 (disorder) (224236267) Chronic kidney disease, stage 3 unspecified (N18.30) Active confirmed Problem Coronary artery disease (97330864) CAD (coronary artery disease) (I25.10) Active confirmed Encounters Encounter Location Date Provider Diagnosis [place] [facility] [address] [facility] 15 [place] [address] 01/17/2025 Mike Valverde Chronic kidney disease, stage 3 unspecified N18.30 ; Type 2 diabetes mellitus with diabetic chronic kidney disease E11.22 ; Essential (primary) hypertension I10 and Hyperlipidemia, unspecified E78.5 [place] [facility] [address] [facility] 15 [place] [address] 02/07/2025 Mike Valverde Chronic kidney disease, stage 3 unspecified N18.30 ; Type 2 diabetes mellitus with diabetic chronic kidney disease E11.22 ; Essential (primary) hypertension I10 ; Hyperlipidemia, unspecified E78.5 ; CAD (coronary artery disease) I25.10 ; Vasculitis limited to the skin, unspecified L95.9 and Gastro-esophageal reflux disease without esophagitis K21.9 [place] [facility] [address] [facility] [address] [place] [address] 02/07/2025 Mike Valverde Assessments Encounter Date Diagnosis (ICD Code) Assessment Notes Treatment Notes Treatment Clinical Notes Section Notes 01/17/2025 Chronic kidney disease, stage 3 unspecified (ICD-10 - N18.30) 02/07/2025 Type 2 diabetes mellitus with diabetic chronic kidney disease (ICD-10 - E11.22) 02/07/2025 Chronic kidney disease, stage 3 unspecified (ICD-10 - N18.30) 02/07/2025 Essential (primary) hypertension (ICD-10 - I10) 01/17/2025 Type 2 diabetes mellitus with diabetic chronic kidney disease (ICD-10 - E11.22) 01/17/2025 Essential (primary) hypertension (ICD-10 - I10) 02/07/2025 Hyperlipidemia, unspecified (ICD-10 - E78.5) 01/17/2025 Hyperlipidemia, unspecified (ICD-10 - E78.5) 02/07/2025 CAD (coronary artery disease) (ICD-10 - I25.10) 02/07/2025 Vasculitis limited to the skin, unspecified (ICD-10 - L95.9) 02/07/2025 Gastro-esophageal reflux disease without esophagitis (ICD-10 - K21.9) Plan Of Treatment Next Appt Details Provider Name:Mike Valverde , 03/21/2025 01:00:00 PM, [address] [facility], [address], [place], [address],
--- OUTSIDE RECORDS SUMMARY | 2025-03-14 10:07 | XMS_ITS | Referral Summary ---
Author Organization [facility] Address [address] [place] [address] Phone Care Team Providers Care Inside Wirer Name Role Phone Maurice Daniels MD Primary Care Provider Jeremias Grewal MD Unavailable Brennen Maldonado MD Unavailable Alonso Antunez DNP Unavailable Dejuan Butterfield MD Unavailable [phone] John Avila MD Unavailable Vin Oliver MD Unavailable [phone] Kvng Valverde MD Unavailable Prabhu Harp NP Unavailable Ary Spangler OT Unavailable Encounters Date Type Department Care Team Description 03/12/2025 9:00 AM CDT Therapy [facility]ational [facility] [address] [place] [phone] Ary Spangler OT Cortical visual impairment (Primary Dx) 03/10/2025 12:01 PM CDT - 03/10/2025 11:59 PM CDT Hospital Encounter [facility] ([facility]) [address] [place] [address] Discharge Disposition: Discharge to home or self care 03/10/2025 12:00 PM CDT - 03/10/2025 11:59 PM CDT Hospital Encounter [facility] ([facility]) [address] [place] [address] Mild cognitive impairment Discharge Disposition: Discharge to home or self care 02/24/2025 8:00 AM CDT Office Visit [facility] [address] [facility] [address] [place] [address] Yamilex Serrano, OD Type 2 diabetes mellitus without complication, without long-term current use of insulin (HCC) (Primary Dx); Pseudophakia of both eyes; PVD (posterior vitreous detachment), bilateral; Cortical visual impairment 02/11/2025 Plan of Care Documentation [facility] [address] [place] [phone] 02/11/2025 9:00 AM CDT Therapy [facility] [address] [place] [phone] Ary Spangler, OT Cortical visual impairment (Primary Dx) 01/29/2025 9:00 AM CDT Therapy [facility] [address] [place] [phone] Ary Spangler, OT Cortical visual impairment (Primary Dx) 01/24/2025 4:30 PM CDT Office Visit [facility] [address] [facility] 6th [place] [address] [place] [address] Asiya Chamberlain MD Mild cognitive impairment (Primary Dx) 01/07/2025 9:00 AM CDT Therapy [facility] [address] [place] [phone] Ary Spangler, OT Cortical visual impairment (Primary Dx) 12/24/2024 9:00 AM CDT Therapy [facility] [address] [place] [phone] Ary Spangler, OT Cortical visual impairment (Primary Dx) 12/17/2024 10:15 AM CDT Lab [facility] [address] [place] [phone] Beta thalassemia minor; Urinary frequency 12/17/2024 10:00 AM CDT Lab [facility] Oncology [address] [place] [phone] Beta thalassemia minor 12/17/2024 10:30 AM CDT Office Visit 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 Gender Identity Not on file Sexual [...] 03/10/2025 1:45 PM CDT Plan of Treatment Not on file Medical Devices Implanted Type Area Operations Accountant Device Identifier Shelf Expiration Date Model / Serial / Lot [employer] [id number] Inspiris Resilia Leaflet Sewing Ring 21mm Valve Aortic Bovine - [id number] - [id number] Implanted:Qty: 1 on 01/18/2019 by Jeremias Grewal MD at [facility] N/A: Heart [employer] 09/06/2020 [id number] / [id number] / Description:Aortic Valve Procedures Procedure Name Priority [...] AMYLOID-PET/CT IMAGING DATE OF STUDY: 03/10/2025 SCANNER: Patient Conversation Media PET Vision (NV1). RADIOPHARMACEUTICAL: 9.5 mCi F-18 [...] performed. The study was interpreted on the ReliOn workstation. COMPARISON CT/MRI: MRI dated 07/21/2024 FINDINGS: There is normal cortical-white matter contrast in the cerebellum. There is normal cortical-white matter contrast throughout the cerebrum. There are no foci of increased cortical activity. Incidental CT findings: Dental restorations.. Procedure Note Ken Sierra DO - 03/10/2025 EXAMINATION: BRAIN AMYLOID-PET/CT IMAGING DATE OF STUDY: 03/10/2025 SCANNER: TRData N PET Vision (NV1). RADIOPHARMACEUTICAL: 9.5 mCi F-18 [...] performed. The study was interpreted on the ReliOn workstation. COMPARISON CT/MRI: MRI dated 07/21/2024 FINDINGS: [...] by: Ken Sierra DO Asiya Chamberlain MD IM PET PROCEDURES F inal Result * Urinalysis [...] CDT 12/17/2024 11:43 AM CDT Alonso Antunez [facility] LAB MICROBIOLOGY - GENERA L ORDERABLES Final Result ROSHNI JOHN [address] Department [place] [address] * (ABNORMAL) eGFR (12/17/2024 10:02 AM CDT) [...] was last reviewed 2021. Testing performed by: [facility] Laboratory at [facility], [place] [address] Blood 12/17/2024 10:0 2 AM CDT 12/17/2024 10:02 AM CDT us Brennen Maldonado MD LAB BLOOD ORDERABLES Fin al Result [facility] [address] Department [place] [address] * (ABNORMAL) Differential, auto (12/17/2024 10:02 AM CDT) Neutrophil abs 7.57(H) 1.50 - 6.50 K/cumm Comment:Testing performed by : [facility] [place] [address] Imm gran abs 0.03 0.00 - 0.10 K/cumm CERNER CH Comment:Testing performed by : [facility] [place] [address] Lymphocyte abs 2.26 0.80 - 3.30 K/cumm CERNER CH Comment:Testing performed by : [facility] [place] [address] Monocyte abs 0.72 0.20 - 0.80 K/cumm CERNER CH Comment:Testing performed by : [facility] [place] [address] Eosinophil abs 0.37 0.00 - 0.50 K/cumm CERNER CH Comment:Testing performed by : [facility] [place] [address] Basophil abs 0.06 0.00 - 0.10 K/cumm CERNER CH Comment:Testing performed by : [facility] [place] [address] Neutrophil pct 68.8 % CERNER Comment: Interpretive Data Percent cell count reference ranges are not reported, since discordance with absolute values may lead to misinterpretation of CBC data. Current Interpretive Data was last revised on 2017. Testing performed by: [facility] [place] [address] Imm gran pct 0.3 % CERNER Comment: Interpretive Data Percent cell count reference ranges are not reported, since discordance with absolute values may lead to misinterpretation of CBC data. Current Interpretive Data was last revised on 2017. Testing performed by: [facility] [place] [address] Lymphocyte pct 20.5 % ROSHNI Comment: Interpretive Data Percent cell count reference ranges are not reported, since discordance with absolute values may lead to misinterpretation of CBC data. Current Interpretive Data was last revised on 2017. Testing performed by: [facility] [place] [address] Monocyte pct 6.5 % CERLYDIA Comment: Interpretive Data Percent cell count reference ranges are not reported, since discordance with absolute values may lead to misinterpretation of CBC data. Current Interpretive Data was last revised on 2017. Testing performed by: [facility] [place] [address] Eosinophil pct 3.4 % CERLYDIA Comment: Interpretive Data Percent cell count reference ranges are not reported, since discordance with absolute values may lead to misinterpretation of CBC data. Current Interpretive Data was last revised on 2017. Testing performed by: [facility] [place] [address] Basophil pct 0.5 % CERLYDIA Comment: Interpretive Data Percent cell count reference ranges are not reported, since discordance with absolute values may lead to misinterpretation of CBC data. Current Interpretive Data was last revised on 2017. Testing performed by: [facility] [place] [address] Blood 12/17/2024 10:0 2 AM CDT 12/17/2024 10:02 AM CDT Brennen Maldonado MD LAB BLOOD ORDERABLES Fin al Result [facility] [address] [address] Department [place] [address] * (ABNORMAL) CBC with auto differential (12/17/2024 10:02 AM CDT) WBC 11.01(H) 3.80 - 9.90 K/cumm Comment:Testing performed by : [facility] [place] [address] Hgb 10.5(L) 11.9 - 15.5 g/dL ROSHNI Comment:Testing performed by : [facility] [place] [address] Hct 33.7(L) 35.6 - 45.5 % CERNER CH Comment:Testing performed by : [facility] [place] [address] Plt 263 150 - 400 K/cumm CERNER CH Comment:Testing performed by : [facility] [place] [address] MPV 9.5 9.1 - 12.3 fL CERNER CH Comment:Testing performed by : [facility] [place] [address] RBC 4.47 3.90 - 5.20 M/cumm CERNER CH Comment:Testing performed by : [facility] [place] [address] MCV 75.4(L) 81.3 - 96.4 fL CERNER CH Comment:Testing performed by : [facility] [place] [address] MCH 23.5(L) 27.1 - 33.3 pg CERNER CH Comment:Testing performed by : [facility] [place] [address] MCHC 31.2(L) 32.3 - 35.7 g/dL CERNER CH Comment:Testing performed by : [facility] [place] [address] RDW CV 15.3(H) 11.1 - 14.9 % CERNER CH Comment:Testing performed by : [facility] [place] [address] RDW SD 41.9 35.7 - 48.1 fL CERNER CH Comment:Testing performed by : [facility] [place] [address] NRBC abs 0.00 0.00 - 0.01 K/cumm CERNER CH Comment:Testing performed by : [facility] [place] [address] ANC Prelim 7.57(H) 1.50 - 6.50 K/cumm CERNER CH Comment: Interpretive Data The rapid ANC is a preliminary automated count and may vary from the final ANC (Neut Abs) reported in the WBC differential that follows. Current interpretive data was last revised 2024. Testing performed by: [facility] [place] [address] Blood 12/17/2024 10:0 2 AM CDT 12/17/2024 10:02 AM CDT Brennen Maldonado MD LAB BLOOD ORDERABLES Fin al Result [facility] [address] Department [place] [address] * (ABNORMAL) Comprehensive metabolic panel (12/17/2024 10:02 AM CDT) Sodium 141 135 - 145 mmol/L Comment:Testing performed by : [facility] [place] [address] Potassium, pl 4.9 3.3 - 4.9 mmol/L CERNER Comment:Testing performed by : [facility] [place] [address] Chloride 104 97 - 110 mmol/L CERNER Comment:Testing performed by : [facility] [place] [address] CO2 24 22 - 32 mmol/L CERNER CH Comment:Testing performed by : [facility] [place] [address] Anion gap 13 2 - 15 mmol/L CERNER CH Comment:Testing performed by : [facility] [place] [address] BUN 13 6 - 25 mg/dL CERNER CH Comment:Testing performed by : [facility] [place] [address] Creatinine 1.23(H) 0.60 - 1.10 mg/dL CERNER Comment:Testing performed by : [facility] [place] [address] Glucose 94 70 - 199 mg/dL CERNER Comment: Interpretive Data Fasting glucose >/= 126 [...] was last revised 2022. Testing performed by: [facility] [place] [address] Calcium 9.4 8.5 - 10.3 mg/dL CERNER CH Comment:Testing performed by : [facility] [place] [address] Bilirubin, total 0.4 0.1 - 1.2 mg/dL CERNER CH Comment:Testing performed by : [facility] [place] [address] Protein, pl 7.0 6.5 - 8.5 g/dL CERNER CH Comment:Testing performed by : [facility] [place] [address] Albumin 4.2 3.5 - 5.0 g/dL CERNER CH Comment:Testing performed by : [facility] [place] [address] Alk phos 83 40 - 130 Units/L CERNER CH Comment:Testing performed by : [facility] [place] [address] ALT 10 7 - 45 Units/L CERNER CH Comment:Testing performed by : [facility] [place] [address] AST 15 10 - 45 Units/L CERNER CH Comment:Testing performed by : [facility] [place] [address] Blood 12/17/2024 10:0 2 AM CDT 12/17/2024 10:02 AM CDT us Brennen Maldonado MD LAB BLOOD ORDERABLES Fin al Result [facility] [address] Department of Laboratories [place], [place] [id number] * Lipid panel (01/20/2019 2:19 AM CDT) [...] Pediatrics 2011;128:S213 2. NCEP Expert Panel. Circulation 2003;110:227 Current Interpretive Data was last revised on [...] Pediatrics 2011;128:S213 2. NCEP Expert Panel. Circulation 2003;110:227 Current Interpretive Data was last revised on [...] Pediatrics 2011;128:S213 2. NCEP Expert Panel. Circulation 2003;110:227 Current Interpretive Data was last revised on [...] Pediatrics 2011;128:S213 2. NCEP Expert Panel. Circulation 2003;110:227 Current Interpretive Data was last revised on 2018. Chol/HDL ratio 2 ROSHNI Blood specimen (specimen) 01/20/2019 2:19 AM CDT 01/20/2019 2:30 AM CDT Narrative ROSHNI - 01/20/2019 3:12 AM CDT Mook Green MD LAB BLOOD ORDERABLES Final [facility] [address] Department [place] [address] * (ABNORMAL) Hemoglobin A1c (12/31/2018 1:30 PM CDT) Hgb A1C 7.6(H) 4.0 - 5.6 % ROSHNI JOHN Estimated Average Glucose 171 mg/dL ROSHNI Comment: The ADA recommends reporting an estimated Average Glucose (eAG) with all Hemoglobin A1c results using the equation derived from a study of 507 normal and diabetic adults. Minority populations were underrepresented and children were not included. (Diabetes Care 31:7715-8127, 2008). The eAG is not equivalent to a fasting glucose. Blood specimen (specimen) 12/31/2018 1:30 PM CDT 12/31/2018 3:16 PM CDT Narrative ROSHNI - 12/31/2018 5:03 PM CDT Jeremias Grewal MD LAB BLOOD ORDERABLES Final R esult [facility] [address] [facility] Department of Laboratories [place] [id number] from Last 3 Months or Most Recently Relevant to Health Maintenance Insurance MEDICARE [facility] MEDICARE [place] MEDICARE [place]IC[place] Advance Directives For more information, please contact: [phone] * Full Code (Latest Code Status on File) Date Activated Date Inactivated Comments 01/29/2019 6:44 PM 02/08/2019 10:55 PM * Full Code Date Activated Date Inactivated Comments 01/18/2019 2:27 PM 01/29/2019 6:14 PM Care Teams Inside Wirer Relationship Specialty Start Date End Date Maurice Daniels MD PCP - General 12/05/17 Jeremias Grewal MD Surgeon Cardiothoracic Surgery 10/07/19 Brennen Maldonado MD [address] [place] [address] Consulting Physician Hematology and Oncology 05/18/23 Alonso Antunez DNP [address] [place] [address] Nurse Practitioner Hematology and Oncology 05/18/23 Dejuan Butterfield MD [address] [facility] [address] [place] [address] Referring Physician Ophthalmology 01/11/24 John Avila MD [address] [facility] [address] [place] [address] Referring Physician Obstetrics and Gynecology 05/27/24 Vin Oliver MD [address] [place] [address] [place] [address] Referring Physician Psychiatry 05/27/24 [place] [address] [facility] [address] [place] [address] Consulting Physician Cardiology 05/27/24 Prabhu Harp NP [address] [facility] [address] [place], [place] [id number] Nurse Practitioner Sleep Medicine 05/27/24 Ary Spangler OT [address] [address] Occupational Therapist Occupational Therapy 09/10/24
== END 2025-03-14 10:03 | disposition home or self-care (01) ==
PROVIDERS: PCP Internal Medicine; Visit Provider Specialist
DX: N18.30 Chronic kidney disease, stage 3 unspecified (principal); E87.20 Acidosis, unspecified; Z13.1 Encounter for screening for diabetes mellitus; E21.3 Hyperparathyroidism, unspecified; E55.9 Vitamin D deficiency, unspecified
CPT/HCPCS: 82595

== ENCOUNTER 2025-05-30 09:17 | Outpatient (CLI) | payer MEDICARE, OTHER, SELFPAY ==
--- OUTSIDE RECORDS SUMMARY | 2025-01-17 08:45 | XMS_ITS ---
Author Organization [facility] Office Address [address] [facility] [address] [facility] [address] [place] [address] Care Team Providers Care Clam Treader Name Role Phone Prabhakar Valverdet Unavailable [phone] Problems Problem Type SNOMED Code ICD Code Onset Dates Problem Status W/U Status Risk Notes Problem Chronic kidney disease stage 3 (disorder) (298681328) Chronic kidney disease, stage 3 unspecified (N18.30) Active confirmed Problem Diabetic renal disease (117376298) Type 2 diabetes mellitus with diabetic chronic kidney disease (E11.22) Active confirmed Problem Essential hypertension (66465275) Essential (primary) hypertension (I10) Active confirmed Problem Hyperlipidemia (62775298) Hyperlipidemia, unspecified (E78.5) Active confirmed Encounters Encounter Location Date Provider Diagnosis [place] [facility] [address] [facility] [address] [place] [address] 01/17/2025 Mike Valverde Chronic kidney disease, stage [...] Of Treatment Next Appt Details Provider Name:Mike Abram , 06/06/2025 01:15:00 PM, [address] [facility], [address], [place], [address], Progress Notes * Loan SANCHEZDOB:[birth year] (65 yo F)Acc No.[id number]:01/17/2025 Progress Notes Patient: Loan GARCIA Provider: Veronika PADGETT MD, F.Ronald.C.P, F.A.S.N. :1960 A ge:64 Y S ex:Female Date:01/17/2025 Address:[address] [place] [address] [place] [address] Subjective: * Chief Complaints: * * Medical [...] Treatment: * Billing Information: * Visit Code: 99654 Office Visit, New Pt., Level 5. * Procedure Codes: * Electronic signature of Shanika Valverde MD on 05/30/2025 at 09:43 AM CDT Sign off status: Pending * Provider: Veronika PADGETT MD, F.Ronald.C.P, F.A.S.N. Date: 0 01/17/2025 Generated for Printing/Faxing/eTransmitting on: 1 09:43 AM CDT
--- OUTSIDE RECORDS SUMMARY | 2025-02-07 09:45 | XMS_ITS ---
Author Organization [facility] Office Address [address] [place] [address] Care Team Providers Care Medical Equipment Repairer Name Role Phone Mike Valverde Unavailable [phone] Problems Problem Type SNOMED Code ICD Code Onset Dates Problem Status W/U Status Risk Notes Problem Coronary artery disease (20068023) CAD (coronary artery disease) (I25.10) Active confirmed Problem Gastro-esophagea l reflux disease without esophagitis (891496818) Gastro-esophage al reflux disease without esophagitis (K21.9) Active confirmed Encounters Encounter Location Date Provider Diagnosis [place] [facility] [address] [facility] [address] [place] [address] 02/07/2025 Mike Valverde Chronic kidney disease, stage [...] Of Treatment Next Appt Details Provider Name:Mike Valvedre , 06/06/2025 01:15:00 PM, [address] [facility], [facility] [address], [place], [address], Progress Notes * Loan SANCHEZDOB:[birth year] (65 yo F)Acc No.[id number]:02/07/2025 Progress Notes Patient: Loan GARCIA Provider: Veronika PADGETT MD, F.Ronald.C.P, F.A.S.N. :1960 A ge:65 Y S ex:Female Date:02/07/2025 Address:[address] [place], [place] [id number] Subjective: * Chief Complaints: * * Medical [...] Treatment: * Billing Information: * Visit Code: 97523 Office Visit, Est Pt., Level 4. * Procedure Codes: * Electronic signature of Shanika Valverde MD on 05/30/2025 at 09:42 AM CDT Sign off status: Pending * Provider: Veronika PADGETT MD, F.Ronald.C.P, F.A.S.N. Date: 0 02/07/2025 Generated for Printing/Faxing/eTransmitting on: 09:42 AM CDT
--- OUTSIDE RECORDS SUMMARY | 2025-03-21 08:00 | XMS_ITS ---
Author Organization [facility] Address [address] [place] [address] Care Team Providers Care Linen Room Supervisor Name Role Phone Abram Mike Unavailable [phone] Problems Problem Type SNOMED Code ICD Code Onset Dates Problem Status W/U Status Risk Notes Problem Uncomplicated moderate persistent asthma (583323191) Moderate persistent asthma, uncomplicated (J45.40) Active confirmed Encounters Encounter Location Date Provider Diagnosis [place] [facility] [address] [facility] [address] [place] [address] 03/21/2025 Mike Valverde Chronic kidney disease, stage [...] Next Appt Details Provider Name:Mike Valverde , 06/06/2025 01:15:00 PM, 2043 [facility], [address], [place], [address], Progress Notes * Loan SANCHEZDOB:[birth year] (65 yo F)Acc No.[id number]:03/21/2025 Progress Notes Patient: Loan GARCIA Provider: Veronika PADGETT MD, F.Ronald.C.P, F.A.S.N. :1960 A ge:65 Y S ex:Female Date:03/21/2025 Address:[facility] FL[place] Pratt [id number] Subjective: * Chief Complaints: Objective: Assessment: * [...] Plan: * Billing Information: * Visit Code: 09602 Office Visit, Est Pt., Level 4. * Procedure Codes: * Electronic signature of Shanika Valverde MD on 05/30/2025 at 09:43 AM CDT Sign off status: Pending * Provider: Veronika PADGETT MD, F.Ronald.C.P, F.A.S.N. Date: 0 03/21/2025 Generated for Printing/Faxing/eTransmitting on: 1 09:43 AM CDT
--- OUTSIDE RECORDS SUMMARY | 2025-05-30 09:43 | XMS_ITS | Encounter Summary ---
Author Organization [facility] Address [address] [place] [address] Phone Care Team Providers Care Housekeeping Associate Name Role Phone Maurice Daniels MD Primary Care Provider Jeremias Grewal MD Unavailable Brennen Maldonado MD Unavailable [phone] Alonso Antunez DNP Unavailable Dejuan Butterfield MD Unavailable [phone] John Avila MD Unavailable Vin Oliver MD Unavailable [phone] Kvng Valverde MD Unavailable Prabhu Harp NP Unavailable Ary Spangler OT Unavailable [phone] Reason for Visit * Reason Onset Date Comments glasses 05/29/2025 Encounter Details Date Type Department Care Team (Late st Contact Info) Description 05/29/[address] [facility] Medicine Ophthalmology [address] [place], [place] [id number] Yamilex Serrano, YOMI [address] [id number] glasses Social History Tobacco Use Types Packs/Day Years [...] on file 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 Thank you, * Telephone Encounter - Emma Chambers - 05/29/2025 1:01 PM CDT Pt called stating [facility] was not comfortable doing the Sadia tint [address] Ayoub informed them about a place in [place] that can put the sadia tint on the lenses. Pt has lost the paper for that location and inquiring if Dr. Patel office can provide them with that info. They are also inquiring if the glasses have to be made first and then the place in [place] will just put the tint on them. They are also inquiring if Dr. Ayoub thinks [facility] can fill the prescription Please call pt back to advise @ [phone] * Telephone Encounter - Qiana Olivo - 05/29/2025 10:59 AM CDT fyi * Telephone Encounter - Maame Gu - 05/29/2025 10:50 AM CDT Pt says when she got her prescription she was told by dr Serrano to get sadia tint and after she gets them send them to [place] for the glare. Pt says [facility] says they can do it there. Pt wants to know if she can let [facility] do it or is kelsey a must documented in this encounter Plan of Treatment Not on file documented as of this encounter Visit Diagnoses Not on filedocumented in this encounter Care Teams Housekeeping Associate Relationship Specialty Start Date End Date Maurice Daniels MD PCP - General 12/05/17 Jeremias Grewal MD Surgeon Cardiothoracic Surgery 10/07/19 Brennen Maldonado MD [address] [place] [address] Consulting Physician Hematology and Oncology 05/18/23 Alonso Antunez DNP [address] [place] [address] Nurse Practitioner Hematology and Oncology 05/18/23 Dejuan Butterfield MD [address] [facility] [address] [place] [address] Referring Physician Ophthalmology 01/11/24 John Avila MD [address] [facility] [address] [place], [place] [address] Referring Physician Obstetrics and Gynecology 05/27/24 Vin Oliver MD [address] [facility] [address] Referring Physician Psychiatry 05/27/24 [place] [address] [address] Consulting Physician Cardiology 05/27/24 Prabhu Harp NP [address] [facility] [address] [place] [id number] Nurse Practitioner Sleep Medicine 05/27/24 Ary Spangler OT [address] [place] [address] Occupational Therapist Occupational Therapy 09/10/24 documented as of this encounter
--- OUTSIDE RECORDS SUMMARY | 2025-05-30 09:43 | XMS_ITS | Patient Health Record ---
Author Organization [facility] Address [address] [facility] [address] [place] [address] Care Team Providers Care Customs Consultant Name Role Phone AbramTrentonMike Unavailable [phone] Reason For Referral No Information Medications Medication SIG (Take, Route, Frequency, Duration) Notes Start Date End Date Status Ergocalciferol 1.25 MG (02915 UT) 1 capsule Orally Once a week; Duration: 90 days 02/07/2025 Active Calcitriol 0.25 MCG 1 capsule Orally Onc e a day; Duration: 90 day(s) 02/07/2025 11/04/2025 Active Problems Problem Type SNOMED Code ICD Code Onset Dates Problem Status W/U Status Risk Notes Problem Diabetic renal disease (331596024) Type 2 diabetes mellitus with diabetic chronic kidney disease (E11.22) Active confirmed Problem Hyperlipidemia (36469830) Hyperlipidemia, unspecified (E78.5) Active confirmed Problem Uncomplicated moderate persistent asthma (060919565) Moderate persistent asthma, uncomplicated (J45.40) Active confirmed Problem Gastro-esophageal reflux disease without esophagitis (994521431) Gastro-esophagea l reflux disease without esophagitis (K21.9) Active confirmed Problem Essential hypertension (22292343) Essential (primary) hypertension (I10) Active confirmed Problem Chronic kidney disease stage 3 (disorder) (724600855) Chronic kidney disease, stage 3 unspecified (N18.30) Active confirmed Problem Coronary artery disease (42401061) CAD (coronary artery disease) (I25.10) Active confirmed Encounters Encounter Location Date Provider Diagnosis [place] [facility] [address] [place] [address] 01/17/2025 Mike Valverde Chronic kidney disease, stage 3 unspecified N18.30 ; Type 2 diabetes mellitus with diabetic chronic kidney disease E11.22 ; Essential (primary) hypertension I10 and Hyperlipidemia, unspecified E78.5 [place] [facility] [address] [address] 02/07/2025 Mike Valverde Chronic kidney disease, stage 3 unspecified N18.30 ; Type 2 diabetes mellitus with diabetic chronic kidney disease E11.22 ; Essential (primary) hypertension I10 ; Hyperlipidemia, unspecified E78.5 ; CAD (coronary artery disease) I25.10 ; Vasculitis limited to the skin, unspecified L95.9 and Gastro-esophageal reflux disease without esophagitis K21.9 [facility] [address] [place] [address] 03/21/2025 Mike Valverde Chronic kidney disease, stage 3 unspecified N18.30 ; Type 2 diabetes mellitus with diabetic chronic kidney disease E11.22 ; Essential (primary) hypertension I10 ; Hyperlipidemia, unspecified E78.5 ; CAD (coronary artery disease) I25.10 ; Gastro-esophageal reflux disease without esophagitis K21.9 and Moderate persistent asthma, uncomplicated J45.40 [facility] [address] [place] [address] 02/07/2025 Mike Valverde Assessments Encounter Date Diagnosis [...] chronic kidney disease (ICD-10 - E11.22) 03/21/2025 Chronic kidney disease, stage 3 unspecified (ICD-10 - N18.30) 02/07/2025 Essential (primary) hypertension (ICD-10 - I10) 01/17/2025 Type 2 diabetes mellitus with diabetic chronic kidney disease (ICD-10 - E11.22) 03/21/2025 Essential (primary) hypertension (ICD-10 - I10) 01/17/2025 Essential (primary) hypertension (ICD-10 - I10) 02/07/2025 Hyperlipidemia, unspecified (ICD-10 - E78.5) 03/21/2025 Hyperlipidemia, unspecified (ICD-10 - E78.5) 02/07/2025 CAD (coronary artery disease) (ICD-10 - I25.10) 03/21/2025 CAD (coronary artery disease) (ICD-10 - I25.10) 01/17/2025 Hyperlipidemia, unspecified (ICD-10 - E78.5) 02/07/2025 Vasculitis limited to the skin, unspecified (ICD-10 - L95.9) 03/21/2025 Gastro-esophageal reflux disease without esophagitis (ICD-10 - K21.9) 03/21/2025 Moderate persistent asthma, uncomplicated (ICD-10 - J45.40) 02/07/2025 Gastro-esophageal reflux disease without esophagitis (ICD-10 - K21.9) Plan Of Treatment Next Appt Details Provider Name:Mike Valverde , 06/06/2025 01:15:00 PM, [address] [facility] [address], [address],
--- OUTSIDE RECORDS SUMMARY | 2025-05-30 09:43 | XMS_ITS | Clinical Summary ---
Author Organization [facility] Address [address] [facility] [place] [address] Care Team Providers Care Continuous Improvement Intern Name Role Phone Maurice Daniels MD Primary Care Provider [phone] Source Comments [facility],non-[facility] Affiliates and Associated Physician Practices is amultiple site organization consisting of ambulatory clinics and hospital sitesin [place], [place], [place] and [place]. This disclosure is being madepursuant to the Care Everywhere program and may not contain all information available regarding this patient. 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 Gender Identity Not on file Sexual Orientation Not on file Last Filed Vital Signs Vital Sign Reading Time Taken Comments Blood Pressure - - Pulse - - Temperature - - Respiratory Rate - - Oxygen Saturation - - Inhaled Oxygen Concentration - - Weight 103.4 kg (228 lb) 08/26/2019 8:04 AM SOIL CONSERVATION AIDE Height 157.5 cm (5' 2) 08/26/2019 8:04 AM SOIL CONSERVATION AIDE Body Mass Index 41.7 08/26/2019 8:04 AM SOIL CONSERVATION AIDE Plan of Treatment Health Maintenance Due Date [...] - Risk 60-74 years 1-dose series) 2018 DEPRESSION SCREENING 08/21/2024 COVID-19 VACCINE (1 - 2023-2 5 season) 2025 INFLUENZA VACCINE (#1) 2025 HEPATITIS B VACCINE [...] patient's age to complete this topic Insurance [place] [address] MEDICARE [facility] SELF PAY NO INSURANCE Member Subscriber Plan / Payer (Ef fective for All Dates) Name:Loan Francisco Member ID:Not on file Relation to Subscriber:Not on file Name:LOAN FRANCISCO Subscriber ID:Not on file (Home) Address: [address] [place] [id number] Payer ID:Not on file Group ID:Not on file Type:Self Pay Address: [place], [place] MEDICARE Care Teams Continuous Improvement Intern Relationship Specialty Start Date End Date Maurice Daniels MD [address] [place] [address] PCP - General Internal Medicine 08/01/19
--- OUTSIDE RECORDS SUMMARY | 2025-05-30 09:44 | XMS_ITS | Clinical Summary ---
Author Organization [facility] Address [address] [place] [address] Phone Care Team Providers Care Promotional Model Name Role Phone Maurice Daniels MD Primary Care Provider Jeremias Grewal MD Unavailable [phone] Brennen Maldonado MD Unavailable Alonso Antunez DNP Unavailable Dejuan Butterfield MD Unavailable [phone] John Avila MD Unavailable Vin Oliver MD Unavailable [phone] Kvng Valverde MD Unavailable Prabhu Harp [...] (12/04/2018): Added automatically from request for surgery [id number] Encounters Date Type Department Care Team Description 05/29/2025 Telephone [facility] Medicine Ophthalmology [address] [place] [address] Yamilex Serrano, OD glasses 03/12/2025 9:00 AM CDT Therapy [facility] Medicine Occupational Therapy [address] [place] [phone] Ary Spangler OT Cortical visual impairment (Primary Dx) 03/10/2025 12:01 PM CDT - 03/10/2025 11:59 PM CDT Hospital Encounter [facility] [address] [place] [address] Discharge Disposition: Discharge to home or self care 03/10/2025 12:00 PM CDT - 03/10/2025 11:59 PM CDT Hospital Encounter [facility] ([facility]) [address] [place] [address] Mild cognitive impairment Discharge Disposition: Discharge to home or self care from Last 3 Months Immunizations Immunization Administration [...] Thalassemia Neuropathy Arthritis Asthma Depression Diabetes mellitus type 2 Thalassemia Nonalcoholic steatohepatitis (VALENTINE) Sleep apnea Depression Diabetes Family History Medical History Relation Name Comments [...] on file Legal Sex Female 5:26 AM REFLEXOLOGIST Gender Identity Not on file Sexual Orientation [...] 1960 Meningococcal B Vaccine (1 o f 4 - Increased Risk) 01/23/1968 Hepatitis B Screening 01/23/1976 Zoster Vaccine (1 of 2) 01/23/2008 DTaP/Tdap/Td Vaccine (1 - Tdap) 04/03/2019 9 Hemoglobin A1C 07/03/2019 12/31/2018 Lipid Panel 01/21/2020 01/20/2019 Well Visit 65+ 2023 Osteoporosis Screening-Bone Density Scan 03/11/2023 03/11/2021 Covid-19 Vaccine ( season) 2025 06/05/2023, 05/03/2022, 12/06/2021, Additional history exists Influenza Vaccine (#1) 2025 , 06/06/2022, 05/14/2021, Additional history exists Fall Risk Assessment 09/10/2025 09/10/2024, 09/19/20 22 eGFR 12/17/2025 12/17/2024, 03/0 10/2024, 06/18/2024, Additional history exists Dilated Eye Exam 02/24/2026 02/24/2025, 05/27/2024 Pneumococcal vaccine 65+ Completed 024, 06/06/2018, 07/06/2016 Medical Devices Implanted Type Area Lunchroom Operator Device Identifier Shelf Expiration Date Model / Serial / Lot [employer] [id number] Inspiris Resilia Leaflet Sewing Ring 21mm Valve Aortic Bovine - [id number] - [id number] Implanted:Qty: 1 on 01/18/2019 by Jeremias Grewal MD at [facility] N/A: Heart [employer] 09/06/2020 [id number] / [id number] / Description:Aortic Valve Procedures Procedure Name Priority Date/Time Associated Diagnosis Comments PET/CT AMYLOID BRAIN Schedule Routine, Read Routine (OP Routine) 03/10/2025 2:21 PM CDT Mild cognitive impairment EGFR Routine 12/17/2024 10:02 AM CDT Beta [...] AMYLOID-PET/CT IMAGING DATE OF STUDY: 03/10/2025 SCANNER: [employer] NVELO PET Vision (NV1). RADIOPHARMACEUTICAL: 9.5 mCi F-18 [...] performed. The study was interpreted on the BuildMy[employer] workstation. COMPARISON CT/MRI: MRI dated 07/21/2024 FINDINGS: There is normal cortical-white matter contrast in the cerebellum. There is normal cortical-white matter contrast throughout the cerebrum. There are no foci of increased cortical activity. Incidental CT findings: Dental restorations.. Procedure Note Ken Sierra DO - 03/10/2025 EXAMINATION: BRAIN AMYLOID-PET/CT IMAGING DATE OF STUDY: 03/10/2025 SCANNER: [employer] NVEL[employer] PET Vision (NV1). RADIOPHARMACEUTICAL: 9.5 mCi F-18 [...] performed. The study was interpreted on the [employer] workstation. COMPARISON CT/MRI: MRI dated 07/21/2024 FINDINGS: [...] IMG PET PROCEDURES F inal Result * (ABNORMAL) eGFR (12/17/2024 10:02 AM CDT) [...] was last reviewed 2021. Testing performed by: [facility] at [facility], [place] [address] Blood 12/17/2024 10:0 2 AM CDT 12/17/2024 10:02 AM CDT us Brennen Maldonado MD LAB BLOOD ORDERABLES Fin al Result ROSHNI [id number] [address] Department [place] [address] * Lipid panel (01/20/2019 2:19 AM CDT) [...] BLOOD ORDERABLES Final Resu lt ROSHNI JOHN [address] [address] Department [place] [address] * (ABNORMAL) Hemoglobin A1c (12/31/2018 1:30 PM CDT) Hgb A1C 7.6(H) 4.0 - 5.6 % ROSHNI JOHN Estimated Average Glucose 171 mg/dL ROSHNI JOHN Comment: The ADA recommends reporting an estimated Average Glucose (eAG) with all Hemoglobin A1c results using the equation derived from a study of 507 normal and diabetic adults. Minority populations were underrepresented and children were not included. (Diabetes Care 31:4453-5290, 2008). The eAG is not equivalent to a fasting glucose. Blood specimen (specimen) 12/31/2018 1:30 PM CDT 12/31/2018 3:16 PM CDT Narrative ROSHNI JOHN - 12/31/2018 5:03 PM CDT Jeremias Grewal MD LAB BLOOD ORDERABLES Final R esult ROSHNI JOHN [address] [address] Department of Laboratories [place] [phone] from Last 3 Months or Most Recently Relevant to Health Maintenance Insurance MEDICARE [facility] MEDICARE [facility] MEDICARE MEDICARE [facility] Advance Directives For more information, please contact: [phone] * Full Code (Latest Code Status on File) Date Activated Date Inactivated Comments 01/29/2019 6:44 PM 02/08/2019 10:55 PM * Full Code Date Activated Date Inactivated Comments 01/18/2019 2:27 PM 01/29/2019 6:14 PM Care Teams Promotional Model Relationship Specialty Start Date End Date Maurice Daniels MD PCP - General 12/05/17 Jeremias Grewal MD Surgeon Cardiothoracic Surgery 10/07/19 Brennen Maldonado MD [address] [place] [address] Consulting Physician Hematology and Oncology 05/18/23 Alonso Antunez DNP [address] [place] [address] Nurse Practitioner Hematology and Oncology 05/18/23 Dejuan Butterfield MD [address] [facility] [address] [place] [address] Referring Physician Ophthalmology 01/11/24 John Avila MD [address] [facility] [address] [place], [place] [address] Referring Physician Obstetrics and Gynecology 05/27/24 Vin Oliver MD [address] [place] [address] [place] [address] Referring Physician Psychiatry 05/27/24 [place] [address] [facility] [address] [place] [address] Consulting Physician Cardiology 05/27/24 Prabhu Harp NP [address] [facility] [address] [place] [address] Nurse Practitioner Sleep Medicine 05/27/24 Ary Spangler OT [address] [facility] [address] [facility] [address] [place] [address] Occupational Therapist Occupational Therapy 09/10/24
[2025-05-30 10:18] LABS: Hematocrit 33.6 % (37.0-47.0); Hemoglobin 10.3 g/dL (12.0-15.0); Immature Granulocyte Percent A 0.1 % (0-0.5); Lymphocytes Absolute Auto 2.11 K/mm3 (0.9-3.2); Mean Corpuscular HGB Conc 30.7 g/dl (32-36); Mean Corpuscular Hemoglobin 23.3 pg (26-34); Mean Corpuscular Volume 75.8 fl (80-100); Nucleated Red Blood Cells Absolute Auto 0.000 K/mm3 (0.0-0.012); Nucleated Red Blood Cells Perc 0.0 % (0.0-0.2); Platelet Count Result 233 k/mm3 (150-375); Red Blood Count 4.43 M/mm3 (4.2-5.4); White Blood Count 8.1 K/mm3 (4.5-10.0)
[2025-05-30 10:24] LABS: Add Urine Microscopic? NO; Appearance Urine Clear (Clear); Glucose Urine UA 2+ mg/dL (Negative); Leukocyte Esterase Ur Negative LEU/UL (Negative); Nitrate Urine Negative (Negative); Specific Grav Ur 1.016 (1.001-1.035)
[2025-05-30 10:41] LABS: Alanine Aminotransferase 14 U/L (6-35); Albumin Level 4.1 g/dL (3.5-5.1); Alkaline Phosphatase 87 U/L (38-126); Anion Gap 8 mmol/L (4-12); Aspartate Amino Transferase 25 U/L (14-36); Bilirubin,Total 0.5 mg/dL (0.2-1.3); Blood Urea Nitrogen 27 mg/dL (7-17); Calcium 9.6 mg/dL (8.4-10.2); Carbon Dioxide 26 mmol/L (22-30); Chloride 104 mmol/L (98-107); Estimated Glomerular Filt Rate 36; Glucose 89 mg/dL (65-110); Potassium 4.6 mmol/L (3.4-5.0); Sodium 138 mmol/L (137-145); Total Protein 7.5 g/dL (6.3-8.2); Uric Acid 5.8 mg/dL (2.5-7.5)
[2025-05-30 10:50] LABS: Total Protein Urine Random 15 mg/dL; Ur Ttl Prot Creatinine Ratio 0.24 mg/mg (0-0.20)
[2025-05-30 10:54] LABS: Parathyroid Intact 19.1 pg/mL (14.5-75.2)
[2025-05-30 10:56] LABS: MALB Creatinine Ratio 56.9 mg/g (0-30)
[2025-05-30 11:36] LABS: Hemoglobin A1C 5.8 % (<5.7)
[2025-05-31 11:08] LABS: Chloride, Urine 94 mmol/L (Not Estab.)
[2025-06-04 13:01] LABS: Osmolality, Urine 490
== END 2025-05-30 09:18 | disposition home or self-care (01) ==
LOC: ANHLAB 09:23
PROVIDERS: PCP Internal Medicine; Visit Provider Specialist
DX: D64.9 Anemia, unspecified (principal); E11.65 Type 2 diabetes mellitus with hyperglycemia; E21.3 Hyperparathyroidism, unspecified; E55.9 Vitamin D deficiency, unspecified; R82.90 Unspecified abnormal findings in urine; N39.0 Urinary tract infection, site not specified; R35.0 Frequency of micturition; I12.9 Hypertensive chronic kidney disease with stage 1 through stage 4 chronic kidney disease, or unspecified chronic kidney disease; N18.30 Chronic kidney disease, stage 3 unspecified
CPT/HCPCS: 36415; 80053; 81003; 82043; 82306; 82436; 82570; 83036; 83935; 83970; 84133; 84156; 84300; 84550; 85025

== ENCOUNTER 2025-07-09 08:50 | Outpatient (CLI) | payer MEDICARE, OTHER, SELFPAY ==
--- NOTE | 2025-07-09 12:09 | NEURO_ITS ---
Impression: # Diabetic complains of left wrist pain and numbness. ? # Left Ulnar Neuropathy across the elbow. ? # No Carpal Tunnel Syndrome. ? # Needle/ EMG exam mildly neurogenic. Nerve Conduction Studies ?Stim Site NR Peak (ms) P-T Amp (?V) Site1 Site2 Delta-P (ms) Dist (cm) Tristin (m/s) Left Median Anti Sensory (2-3nd Digit) Wrist ? 3.3 12.1 Wrist 2-3nd Digit 3.3 14.0 42 Wrist ? 3.8 3.6 Wrist 2-3nd Digit 3.3 14.0 42 Left Radial Anti Sensory (Base 1st Digit) Wrist ? 2.0 15.9 Wrist Base 1st Digit 2.0 0.0 Left Ulnar Anti Sensory (5th Digit) Wrist ? 2.9 12.8 Wrist 5th Digit 2.9 14.0 48 ?Stim Site NR Onset (ms) O-P Amp (mV) Site1 Site2 Delta-0 (ms) Dist (cm) Tristin (m/s) Left Median Motor (Abd Poll Brev) Wrist ? 3.7 3.2 Elbow Wrist 4.5 26.0 58 Elbow ? 8.2 2.9 Left Ulnar Motor (Abd Dig Minimi) Wrist ? 2.3 7.1 A Elbow Wrist 5.4 26.0 48 A Elbow ? 7.7 6.5 B Elbow Wrist 4.0 19.0 48 B Elbow ? 6.3 4.3 F Wave Studies ?NR F-Lat (ms) L-R F-Lat (ms) Left Median (Mrkrs) (Abd Poll Brev) ? 28.85 Left Ulnar (Mrkrs) (Abd Dig Min) ? 28.74 Electromyography ?Side Muscle Nerve Root Ins Act Fibs Amp Dur Recrt Comment Left 1stDorInt Ulnar C8-T1 Nml Nml Decr >12ms Nml Left Ext Indicis Radial (Post Int) C7-8 Nml Nml Nml Nml Nml Left Ext Digitorum Radial (Post Int) C7-8 Nml Nml Nml Nml Nml Left BrachioRad Radial C5-6 Nml Nml Nml Nml Nml Left PronatorTeres Median C6-7 Nml Nml Nml Nml Nml Left Abd Poll Brev Median C8-T1 Nml Nml Nml Nml Nml Left ABD Dig Min Ulnar C8-T1 Nml Nml Decr >12ms Nml Left FlexPolLong Median (Ant Int) C7-8 Nml Nml Nml Nml Nml Left Abd Poll Long Radial (Post Int) C7-8 Nml Nml Nml Nml Nml
== END 2025-07-09 08:51 | disposition home or self-care (01) ==
LOC: ANHNEURO 08:52
PROVIDERS: PCP Internal Medicine; Visit Provider Orthopaedic Surgery
DX: G56.22 Lesion of ulnar nerve, left upper limb (principal)
CPT/HCPCS: 95886; 95909

== ENCOUNTER 2025-07-24 10:25 | Outpatient (CLI) | payer MEDICARE, OTHER, SELFPAY ==
--- OUTSIDE RECORDS SUMMARY | 2025-01-17 07:45 | XMS_ITS ---
Author Organization [facility] Office Address [address] [facility] [address] [facility] [address] [place] [address] Care Team Providers Care Sheep Sticker Name Role Phone Valverde Mike Unavailable [phone] Problems Problem Type SNOMED Code ICD Code Onset Dates Problem Status W/U Status Risk Notes Problem Diabetic renal disease (130437871) Type 2 diabetes mellitus with diabetic chronic kidney disease (E11.22) Active confirmed Problem Essential hypertension (09269096) Essential (primary) hypertension (I10) Active confirmed Problem Hyperlipidemia (82699485) Hyperlipidemia, unspecified (E78.5) Active confirmed Encounters Encounter Location Date Provider Diagnosis [place] [facility] [address] [facility] [address] [place] [address] 01/17/2025 Mike Valverde Chronic kidney disease, stage 3 unspecified N18.30 ; Type 2 diabetes mellitus with diabetic chronic kidney disease E11.22 ; Essential (primary) hypertension I10 and Hyperlipidemia, unspecified E78.5 Assessments Encounter Date Diagnosis (ICD Code) Assessment Notes Treatment Notes Treatment Clinical Notes Section Notes 01/17/2025 Chronic kidney disease, stage 3 unspecified (ICD-10 - N18.30) 01/17/2025 Type 2 diabetes mellitus with diabetic chronic kidney disease (ICD-10 - E11.22) 01/17/2025 Essential (primary) hypertension (ICD-10 - I10) 01/17/2025 Hyperlipidemia, unspecified (ICD-10 - E78.5) Plan Of Treatment Next Appt Details Provider Name:Mike Valverde , 07/30/2025 02:00:00 PM, [address] [facility], [facility] [address], [place], [address], Progress Notes * Loan SANCHEZDOB:[birth year] (65 yo F)Acc No.[id number]:01/17/2025 Progress Notes Patient: Javi Loan CONTRERAS Provider: Veronika PADGETT MD, Jason.AvtarP, F.A.S.N. :1960 A ge:64 Y S ex:Female Date:01/17/2025 [facility] Subjective: * Chief Complaints: * * Medical History: Objective: * Vitals: Assessment: * Assessment: 1. C hronic kidney disease, stage 3 unspecified - N18.30 (Primary) 2 . T ype 2 diabetes mellitus with diabetic chronic kidney disease - E11.22 3 . E ssential (primary) hypertension - I10 4 . H yperlipidemia, unspecified - E78.5 ? Plan: * Treatment: * Billing Information: * Visit Code: 27804 Office Visit, New Pt., Level 5. * Procedure Codes: * Electronic signature of Shanika Valverde MD on 07/24/2025 at 11:41 AM PBX INSTALLER Sign off status: Pending * Provider: Veronika PADGETT MD, Jason.Ronald.Dionna, F.A.S.N. Date: 0 01/17/2025 Generated for Printing/Faxing/eTransmitting on: 1 09/24/2024 11:41 AM PBX INSTALLER
--- OUTSIDE RECORDS SUMMARY | 2025-02-07 08:45 | XMS_ITS ---
Author Organization [facility] Office Address [address] [place] [address] Care Team Providers Care Service Desk Director Name Role Phone Mike Valverde Unavailable [phone] Problems Problem Type SNOMED Code ICD Code Onset Dates Problem Status W/U Status Risk Notes Problem Coronary artery disease (65069928) CAD (coronary artery disease) (I25.10) Active confirmed Problem Gastro-esophagea l reflux disease without esophagitis (179312304) Gastro-esophage al reflux disease without esophagitis (K21.9) Active confirmed Encounters Encounter Location Date Provider Diagnosis [place] [facility] [address] [facility] [address] [place] [address] 02/07/2025 Mike Valverde Chronic kidney disease, stage 3 unspecified N18.30 ; Type 2 diabetes mellitus with diabetic chronic kidney disease E11.22 ; Essential (primary) hypertension I10 ; Hyperlipidemia, unspecified E78.5 ; CAD (coronary artery disease) I25.10 ; Vasculitis limited to the skin, unspecified L95.9 and Gastro-esophageal reflux disease without esophagitis K21.9 Assessments Encounter Date Diagnosis (ICD Code) Assessment Notes Treatment Notes Treatment Clinical Notes Section Notes 02/07/2025 Chronic kidney disease, stage 3 unspecified (ICD-10 - N18.30) 02/07/2025 Type 2 diabetes mellitus with diabetic chronic kidney disease (ICD-10 - E11.22) 02/07/2025 Essential (primary) hypertension (ICD-10 - I10) 02/07/2025 Hyperlipidemia, unspecified (ICD-10 - E78.5) 02/07/2025 CAD (coronary artery disease) (ICD-10 - I25.10) 02/07/2025 Vasculitis limited to the skin, unspecified (ICD-10 - L95.9) 02/07/2025 Gastro-esophageal reflux disease without esophagitis (ICD-10 - K21.9) Plan Of Treatment Next Appt Details Provider Name:Mike Valverde , 07/30/2025 02:00:00 PM, [address] [facility], [facility] [address], [place], [address], Progress Notes * Loan SANCHEZDOB:[birth year] (65 yo F)Acc No.[id number]:02/07/2025 Progress Notes Patient: Loan GARCIA Provider: Veronika PADGETT MD, F.Ronald.C.P, F.A.S.N. :1960 A ge:65 Y S ex:Female Date:02/07/2025 Address:[address] [place], [place] [id number] Subjective: * Chief Complaints: * * Medical History: Objective: * Vitals: Assessment: * Assessment: 1. C hronic kidney disease, stage 3 unspecified - N18.30 (Primary) 2 . T ype 2 diabetes mellitus with diabetic chronic kidney disease - E11.22 3 . E ssential (primary) hypertension - I10 4 . H yperlipidemia, unspecified - E78.5 & #160; 5 . C AD (coronary artery disease) - I25.10 6 . V asculitis limited to the skin, unspecified - L95.9 7 . G emanuel-esophageal reflux disease without esophagitis - K21.9 Plan: * Treatment: * Billing Information: * Visit Code: 03391 Office Visit, Est Pt., Level 4. * Procedure Codes: * Electronic signature of Shanika Valverde MD on 07/24/2025 at 11:40 AM FOIL WRAPPER Sign off status: Pending * Provider: Veronika PADGETT MD, F.Ronald.C.P, F.A.S.N. Date: 0 02/07/2025 Generated for Printing/Faxing/eTransmitting on: 1 09/24/2024 11:40 AM FOIL WRAPPER
--- OUTSIDE RECORDS SUMMARY | 2025-03-21 07:00 | XMS_ITS ---
Author Organization [facility] Address [address] [place] [address] Care Team Providers Care Hydraulic Modeling Engineer Name Role Phone Abram Mike Unavailable [phone] Problems Problem Type SNOMED Code ICD Code Onset Dates Problem Status W/U Status Risk Notes Problem Uncomplicated moderate persistent asthma (240973768) Moderate persistent asthma, uncomplicated (J45.40) Active confirmed Encounters Encounter Location Date Provider Diagnosis [place] [facility] [address] [facility] [address] [place] [address] 03/21/2025 Mike Valverde Chronic kidney disease, stage 3 unspecified N18.30 ; Type 2 diabetes mellitus with diabetic chronic kidney disease E11.22 ; Essential (primary) hypertension I10 ; Hyperlipidemia, unspecified E78.5 ; CAD (coronary artery disease) I25.10 ; Gastro-esophageal reflux disease without esophagitis K21.9 and Moderate persistent asthma, uncomplicated J45.40 Assessments Encounter Date Diagnosis (ICD Code) Assessment Notes Treatment Notes Treatment Clinical Notes Section Notes 03/21/2025 Chronic kidney disease, stage 3 unspecified (ICD-10 - N18.30) 03/21/2025 Type 2 diabetes mellitus with diabetic chronic kidney disease (ICD-10 - E11.22) 03/21/2025 Essential (primary) hypertension (ICD-10 - I10) 03/21/2025 Hyperlipidemia, unspecified (ICD-10 - E78.5) 03/21/2025 CAD (coronary artery disease) (ICD-10 - I25.10) 03/21/2025 Gastro-esophageal reflux disease without esophagitis (ICD-10 - K21.9) 03/21/2025 Moderate persistent asthma, uncomplicated (ICD-10 - J45.40) Plan Of Treatment Next Appt Details Provider Name:Mike Valverde , 07/30/2025 02:00:00 PM, [address] [facility], [facility], [place], [address], Progress Notes * Loan SANCHEZDOB:[birth year] (65 yo F)Acc No.[id number]:03/21/2025 Progress Notes Patient: Loan GARCIA Provider: Veronika PADGETT MD, Jason.Ronald.C.P, F.A.S.N. :1960 A ge:65 Y S ex:Female Date:03/21/2025 Address:[facility] [address] [facility] Subjective: * Chief Complaints: Objective: Assessment: * Assessment: 1. C hronic kidney disease, stage 3 unspecified - N18.30 (Primary) 2 . T ype 2 diabetes mellitus with diabetic chronic kidney disease - E11.22 3 . E ssential (primary) hypertension - I10 4 . H yperlipidemia, unspecified - E78.5 & #160; 5 . C AD (coronary artery disease) - I25.10 6 . G emanuel-esophageal reflux disease without esophagitis - K21.9 7 . M oderate persistent asthma, uncomplicated - J45.40 Plan: * Billing Information: * Visit Code: 85035 Office Visit, Est Pt., Level 4. * Procedure Codes: * Electronic signature of Shanika Valverde MD on 07/24/2025 at 11:42 AM HAND MEAT SALTER Sign off status: Pending * Provider: Veronika PADGETT MD, F.Ronald.C.P, F.A.S.N. Date: 0 03/21/2025 Generated for Printing/Faxing/eTransmitting on: 09/24/2024 11:42 AM HAND MEAT SALTER
--- OUTSIDE RECORDS SUMMARY | 2025-06-06 07:15 | XMS_ITS ---
Author Organization [facility] Address [address] [place] [address] Care Team Providers Care Cup Trimming Machine Operator Name Role Phone Eliazar Valverdejit Unavailable [phone] Problems Problem Type SNOMED Code ICD Code Onset Dates Problem Status W/U Status Risk Notes Problem Chronic kidney disease stage 3B (disorder) (992951461) Chronic kidney disease, stage 3b (N18.32) Active confirmed Problem Proteinuria (16558393) Proteinuria, unspecified (R80.9) Active confirmed Problem Constipation (15686198) Constipation, unspecified (K59.00) Active confirmed Problem Insomnia (909277877) Insomnia, unspecified (G47.00) Active confirmed Encounters Encounter Location Date Provider Diagnosis [place] [facility] [address] [facility] [address] [place] [address] 06/06/2025 Mike Valverde Chronic kidney disease, stage 3b N18.32 ; Type 2 diabetes mellitus with diabetic chronic kidney disease E11.22 ; Essential (primary) hypertension I10 ; Hyperlipidemia, unspecified E78.5 ; CAD (coronary artery disease) I25.10 ; Gastro-esophageal reflux disease without esophagitis K21.9 ; Moderate persistent asthma, uncomplicated J45.40 ; Proteinuria, unspecified R80.9 ; Constipation, unspecified K59.00 and Insomnia, unspecified G47.00 Assessments Encounter Date Diagnosis (ICD Code) Assessment Notes Treatment Notes Treatment Clinical Notes Section Notes 06/06/2025 Chronic kidney disease, stage 3b (ICD-10 - N18.32) 06/06/2025 Type 2 diabetes mellitus with diabetic chronic kidney disease (ICD-10 - E11.22) 06/06/2025 Essential (primary) hypertension (ICD-10 - I10) 06/06/2025 Hyperlipidemia, unspecified (ICD-10 - E78.5) 06/06/2025 CAD (coronary artery disease) (ICD-10 - I25.10) 06/06/2025 Gastro-esophageal reflux disease without esophagitis (ICD-10 - K21.9) 06/06/2025 Moderate persistent asthma, uncomplicated (ICD-10 - J45.40) 06/06/2025 Proteinuria, unspecified (ICD-10 - R80.9) 06/06/2025 Constipation, unspecified (ICD-10 - K59.00) 06/06/2025 Insomnia, unspecified (ICD-10 - G47.00) Plan Of Treatment Next Appt Details Provider Name:Mike Abram , 07/30/2025 02:00:00 PM, [address] [facility], [facility] [address], [place], [address], Progress Notes * Loan SANCHEZDOB:[birth year] (65 yo F)Acc No.[id number]:06/06/2025 Progress Notes Patient: [place] GARCIAmich Provider: Veronika PADGETT MD, F.A.C.P, F.A.S.N. :1960 A ge:65 Y S ex:Female Date:06/06/2025 Address:[address] [place], [place] [id number] Subjective: * Chief Complaints: Objective: Assessment: * Assessment: 1. C hronic kidney disease, stage 3b - N18.32 (Primary) 2 . T ype 2 diabetes mellitus with diabetic chronic kidney disease - E11.22 3 . E ssential (primary) hypertension - I10 4 . H yperlipidemia, unspecified - E78.5 5 . C AD (coronary artery disease) - I25.10 6 . G emanuel-esophageal reflux disease without esophagitis - K21.9 7 . M oderate persistent asthma, uncomplicated - J45.40 8 . P roteinuria, unspecified - R80.9 9 . C onstipation, unspecified - K59.00 1 0. I nsomnia, unspecified - G47.00 Plan: * Billing Information: * Visit Code: 52415 Office Visit, Est Pt., Level 4. * Procedure Codes: * Electronic signature of Shanika Valverde MD on 07/24/2025 at 11:41 AM COSMETICS COUNTER MANAGER Sign off status: Pending * Provider: Veronika PADGETT MD, F.A.C.P, F.A.S.N. Date: 1 Generated for Printing/Faxing/eTransmitting on: 09/24/2024 11:41 AM COSMETICS COUNTER MANAGER
[2025-07-24 11:14] LABS: Hematocrit 35.4 % (37.0-47.0); Hemoglobin 10.8 g/dL (12.0-15.0); Immature Granulocyte Percent A 0.4 % (0-0.5); Lymphocytes Absolute Auto 2.39 K/mm3 (0.9-3.2); Mean Corpuscular HGB Conc 30.5 g/dl (32-36); Mean Corpuscular Hemoglobin 22.9 pg (26-34); Mean Corpuscular Volume 75.2 fl (80-100); Nucleated Red Blood Cells Absolute Auto 0.000 K/mm3 (0.0-0.012); Nucleated Red Blood Cells Perc 0.0 % (0.0-0.2); Platelet Count Result 246 k/mm3 (150-375); Red Blood Count 4.71 M/mm3 (4.2-5.4); White Blood Count 12.6 K/mm3 (4.5-10.0)
[2025-07-24 11:17] LABS: Add Urine Microscopic? NO; Appearance Urine Clear (Clear); Glucose Urine UA 3+ mg/dL (Negative); Leukocyte Esterase Ur Negative LEU/UL (Negative); Nitrate Urine Negative (Negative); Specific Grav Ur 1.012 (1.001-1.035)
[2025-07-24 11:32] LABS: Total Protein Urine Random 14 mg/dL; Ur Ttl Prot Creatinine Ratio 0.26 mg/mg (0-0.20)
[2025-07-24 11:40] LABS: Parathyroid Intact 27.0 pg/mL (14.5-75.2)
--- OUTSIDE RECORDS SUMMARY | 2025-07-24 11:41 | XMS_ITS | Encounter Summary ---
Author Organization [facility] Address [address] [place] [address] Phone Care Team Providers Care Charge Gang Weigher Name Role Phone Maurice Daniels MD Primary Care Provider Jeremias Grewal MD Unavailable Brennen Maldonado MD Unavailable [phone] Alonso Antunez DNP Unavailable Dejuan Butterfield MD Unavailable [phone] John Avila MD Unavailable Vin Oliver MD Unavailable [phone] Kvng Valverde MD Unavailable Prabhu Harp NP Unavailable Ary Spangler OT Unavailable [phone] Encounter Details Date Type Department Care Team (Late st Contact Info) Description 06/03/2025 Results Follow-Up [facility] Medicine Oncology [address] [facility] Floor 6 [place] [address] Brennen Maldonado MD [address] [place] [address] Vitamin B12 Social History Tobacco Use Types Packs/Day Years [...] on file Legal Sex Female 5:26 AM 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 Gender Identity Not on file Sexual Orientation Not on file documented as of this encounter Functional Status documented as of this encounter Plan of Treatment Not on file documented as of this encounter Visit Diagnoses Not on filedocumented in this encounter Care Teams Charge Gang Weigher Relationship Specialty Start Date End Date Maurice Daniels MD PCP - General 12/05/17 Jeremias Grewal MD Surgeon Cardiothoracic Surgery 10/07/19 Brennen Maldonado MD [address] [place] [address] Consulting Physician Hematology and Oncology 05/18/23 Alonso Antunez DNP [address] [place] [address] Nurse Practitioner Hematology and Oncology 05/18/23 Dejuan Butterfield MD [address] [facility] 14[address] [place] [address] Referring Physician Ophthalmology 01/11/24 John Avila MD [address] [facility] 162 [facility] [address] [place] [address] Referring Physician Obstetrics and Gynecology 05/27/24 Vin Oliver MD [address] [place] [address] [place] [address] Referring Physician Psychiatry 05/27/24 [place] [address] [address] Consulting Physician Cardiology 05/27/24 Prabhu Harp NP [address] [id number] Nurse Practitioner Sleep Medicine 05/27/24 Ary Spangler OT [address] [address] Occupational Therapist Occupational Therapy 09/10/24 06/17/25 documented as of this encounter
--- OUTSIDE RECORDS SUMMARY | 2025-07-24 11:41 | XMS_ITS | Clinical Summary ---
Author Organization [facility] Address [address] [facility] [place] [address] Care Team Providers Care Pulmonology Physician Name Role Phone Maurice Daniels MD Primary Care Provider [phone] Source Comments [facility],non-[facility] health Affiliates and Associated Physician Practices is amultiple site organization consisting of ambulatory clinics and hospital sitesin [place], [place], [place] and [place]. This disclosure is being madepursuant to the Care Everywhere program and may not contain all information available regarding this patient. 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 Gender Identity Not on file Sexual Orientation Not on file Last Filed Vital Signs Vital Sign Reading Time Taken Comments Blood Pressure - - Pulse - - Temperature - - Respiratory Rate - - Oxygen Saturation - - Inhaled Oxygen Concentration - - Weight 103.4 kg (228 lb) 08/26/2019 8:04 AM EARTH SCIENCE PROFESSOR Height 157.5 cm (5' 2) 08/26/2019 8:04 AM EARTH SCIENCE PROFESSOR Body Mass Index 41.7 08/26/2019 8:04 AM EARTH SCIENCE PROFESSOR Plan of Treatment Health Maintenance Due [...] 50+ (1 of 1 - PCV) 01/23/2008 Respiratory Syncytial Virus (RSV) Vaccine Pt: or over 60 yrs (1 - Risk 50-74 years 1-dose series) 01/23/2008 ZOSTER VACCINE (1 of 2) 01/23/2008 DEPRESSION SCREENING 08/21/2024 COVID-19 VACCINE (1 - 2024-2 6 season) 2025 INFLUENZA VACCINE (#1) 2025 HEPATITIS [...] patient's age to complete this topic Insurance [facility] [place] [address] MEDICARE [facility] SELF PAY NO INSURANCE Member Subscriber Plan / Payer (Ef fective for All Dates) Name:Loan Francisco Member ID:Not on file Relation to Subscriber:Not on file Name:LOAN FRANCISCO Subscriber ID:Not on file (Home) Address: [address] [place] [id number] Payer ID:Not on file Group ID:Not on file Type:Self Pay Address: [place], [place] MEDICARE Care Teams Pulmonology Physician Relationship Specialty Start Date End Date Maurice Daniels MD [address] [place] [address] PCP - General Internal Medicine 08/01/19
[2025-07-24 11:43] LABS: MALB Creatinine Ratio 46.5 mg/g (0-30)
--- OUTSIDE RECORDS SUMMARY | 2025-07-24 11:43 | XMS_ITS | Clinical Summary ---
Author Organization [facility] Address [address] [place] [address] Phone Care Team Providers Care Transmissions Systems Operator Name Role Phone Maurice Daniels MD Primary Care Provider Jeremias Grewal MD Unavailable [phone] Brennen Maldonado MD Unavailable Alonso Antunez DNP Unavailable Dejuan Butterfield MD Unavailable [phone] John Avila MD Unavailable Vin Oliver MD Unavailable [phone] Kvng Valverde MD Unavailable Prabhu Harp NP Unavailable Allergies Active Allergy Reactions Criticality Noted Date Comments Ciprofloxacin Hallucinations,Nausea only Medium 2024 Levofloxacin Hallucinations,Nause a only,Other (See comments) Medium 08/26/2019 Tramadol Itching Low 04/15/2020 Trazodone Hallucinations Medium 01/25/2019 Medications aspirin 81 mg enteric coated tablet Take 1 tablet (81 mg total) by mouth daily 30 tablet 11 9 Active losartan (COZAAR) 50 mg tablet Take 1 [...] ONCE EVERY NIGHT AT BEDTIME [address] (PROTONIX) 20 mg EC tablet Take 1 tablet (20 mg total) by mouth 2 (two) times a day 0 Active dulaglutide (Trulicity) 0.75 mg/0.5 mL pen injector Trulicity 0.75 mg/0.5 mL pen injector 0 Active cholecalciferol, vitamin D3, (VITAMIN D3 ORAL) Take by mouth Active ezetimibe (ZETIA) 10 mg tablet Take 1 tablet (10 mg total) by mouth daily 3 Active ascorbic acid (VITAMIN C) 1,000 mg tablet Take 1 tablet every day by oral route. Active insulin glargine 100 unit/mL (3 mL) pen for injection Inject 38 Units under the skin nightly Active calcitRIOL (ROCALTROL) 0.25 mcg capsule TAKE 1 CAPSULE BY MOUTH EVERY DAY FOR 90 DAYS Active dapagliflozin propanediol (FARXIGA) 5 mg tablet 1 tablet (5 mg total) Active Active Problems Problem Noted Date Diagnosed Date B12 deficiency 06/05/2025 Pseudophakia of both eyes 02/24/2025 Assessment & [...] (12/04/2018): Added automatically from request for surgery [id number] Encounters Date Type Department Care Team Description 07/15/2025 10:30 AM LOADER MAGAZINE GRINDER Office Visit [facility] Medicine Surgery [address] [address] Katherine Ochoa NP S/P AVR (aortic valve replacement) (Primary Dx) 07/08/2025 12:45 PM LOADER MAGAZINE GRINDER Infusion [facility] [place] at [address] [place] [address] B12 deficiency (Primary Dx) 06/18/2025 9:00 AM CDT Therapy [facility] Medicine Occupational Therapy [address] [place] [address] [place] [phone] Ary Spangler, OT Memory loss (Primary Dx); Cortical visual impairment 06/18/2025 [facility] [address] [place], [place] [address] [address] [place] [phone] 06/10/2025 12:45 PM CDT Infusion [facility] [address] [place] [address] B12 deficiency (Primary Dx) 06/05/2025 11:30 AM CDT Therapy [facility] Medicine Occupational Therapy [address] [place] [phone] Loni Jackson, OT Memory loss (Primary Dx) 06/05/2025 10:00 AM CDT Therapy [facility] Medicine Occupational Therapy [address] [place] [phone] Loni Jackson, OT Memory loss (Primary Dx) 06/05/2025 Orders Only [facility] Medicine Bone Marrow Transplant [address] [place] [phone] Ac Reinoso RN B12 deficiency (Primary Dx) 06/03/2025 9:30 AM CDT Office Visit [facility] Medicine Bone Marrow Transplant [address] [place] [phone] Brennen Maldonado MD Beta thalassemia minor (Primary Dx) 06/03/2025 9:00 AM CDT Lab [facility] [address] [place] [phone] Beta thalassemia minor 06/03/2025 Results Follow-Up [facility] Medicine Oncology [address] [place] [phone] Brennen Maldonado MD Vitamin B12 05/30/2025 Telephone [facility] Medicine Ophthalmology [address] [facility] 6th [place] [address] Romelia Ayoub MD 05/29/2025 Telephone [facility] Medicine Ophthalmology [address] [place] [address] Yamilex Serranone, OD glasses from Last 3 Months Immunizations Immunization Administration [...] Nonalcoholic steatohepatitis (VALENTINE) Sleep apnea Depression Diabetes Kidney disease stage 3 Family History Medical History Relation Name Comments [...] on file Legal Sex Female 5:26 AM LOADER MAGAZINE GRINDER Gender Identity Not on file Sexual Orientation Not on file Last Filed Vital Signs Vital Sign Reading Time Taken Comments Blood Pressure 122/72 07/15/2025 12:31 PM LOADER MAGAZINE GRINDER Pulse 66 07/15/2025 12:31 PM LOADER MAGAZINE GRINDER Temperature 36.8 C (98.3 F) 07/08/2025 12:30 PM LOADER MAGAZINE GRINDER Respiratory Rate 16 07/15/2025 12:31 PM LOADER MAGAZINE GRINDER Oxygen Saturation 98% 07/15/2025 12:31 PM LOADER MAGAZINE GRINDER Inhaled Oxygen Concentration - - Weight 89.4 kg (197 lb) 07/15/2025 12:31 PM LOADER MAGAZINE GRINDER Height 157.5 cm (5' 2) 07/15/2025 12:31 PM LOADER MAGAZINE GRINDER Body Mass Index 36.03 07/15/2025 12:31 PM LOADER MAGAZINE GRINDER Plan of Treatment Health Maintenance Due Date Last Done Comments Albumin Creatinine Ratio, Urine 1960 Breast Cancer Screening-Mammogram 1960 Colon Cancer Screening-Colonoscopy 1960 Depression Screening 1960 Hepatitis C Screening 1960 Foot Exam 1960 Hepatitis B Screening 01/23/1976 DTaP/Tdap/Td Vaccine (1 - Tdap) 04/03/2019 9 Hemoglobin A1C 07/03/2019 12/31/2018 Lipid Panel 01/21/2020 01/20/2019 Well Visit 65+ 2023 Osteoporosis Screening-Bone Density Scan 03/11/2023 03/11/2021 Covid-19 Vaccine ( season) 2025 06/05/2023, 05/03/2022, 12/06/2021, Additional history exists Influenza Vaccine (#1) 2025 , 06/13/2023, 06/06/2022, Additional history exists Fall Risk Assessment 09/10/2025 09/10/2024, 05/09/20 22 Dilated Eye Exam 02/24/2026 02/24/2025, 05/27/2024 eGFR 06/03/2026 06/03/2025, 11/20, 10/21/2024, Additional history exists Pneumococcal vaccine 65+ Completed 024, 06/06/2018, 07/06/2016 Zoster Vaccine Completed 04/02/2025, 06/07/2024 Medical Devices Implanted Type Area Manager Of School Device Identifier Shelf Expiration Date Model / Serial / Lot [employer] [id number] Inspiris Resilia Leaflet Sewing Ring 21mm Valve Aortic Bovine - [id number] - [id number] Implanted:Qty: 1 on 01/18/2019 by Jeremias Grewal MD at [facility] N/A: Heart [employer] 09/06/2020 [id number] / [id number] / Description:Aortic Valve Procedures Procedure Name Priority Date/Time Associated Diagnosis Comments EGFR Routine 06/03/2025 8:52 AM CDT Beta thalassemia minor DIFFERENTIAL AUTO Routine 06/03/2025 8:5 2 AM CDT Beta thalassemia minor CBC WITH AUTO DIFFERENTIAL Routine 06/03/2025 8:52 AM CDT Beta thalassemia minor COMPREHENSIVE METABOLIC PANEL Routine 06/03/2025 8:52 AM CDT Beta thalassemia minor VITAMIN B12 Routine 06/03/2025 8:52 AM CDT Beta thalassemia minor FOLATE Routine 06/03/2025 8:52 AM CDT Beta thalassemia minor LIPID PANEL Routine 01/20/2019 2:19 AM CDT HEMOGLOBIN A1C Routine 12/31/2018 1:30 PM CDT Preop testing from Last 3 Months or Most Recently Relevant to Health Maintenance Results * (ABNORMAL) eGFR (06/03/2025 8:52 AM CDT) eGFR 39(L) >=60 mL/min/1. 73 m2 Comment: Interpretive Data [...] was last reviewed 2021. Testing performed by: [facility] [place] [address] Blood 06/03/2025 8:52 AM CDT 06/03/2025 8:52 AM CDT Alonso Antunez [facility] LAB BLOOD ORDERABLES Krysten l Result ROSHNI JOHN [address] Department [place] [address] * (ABNORMAL) Differential, auto (06/03/2025 8:52 AM CDT) Neutrophil abs 6.30 1.50 - 6.50 K/cumm Comment:Testing performed by : [facility] [place] [address] Imm gran abs 0.04 0.00 - 0.10 K/cumm CERNER CH Comment:Testing performed by : [facility] [place] [address] Lymphocyte abs 2.15 0.80 - 3.30 K/cumm CERNER CH Comment:Testing performed by : [facility] [place] [address] Monocyte abs 0.84(H) 0.20 - 0.80 K/cumm CERNER CH Comment:Testing performed by : [facility] [place] [address] Eosinophil abs 0.37 0.00 - 0.50 K/cumm CERNER CH Comment:Testing performed by : [facility] [place] [address] Basophil abs 0.04 0.00 - 0.10 K/cumm CERNER CH Comment:Testing performed by : [facility] [place] [address] Neutrophil pct 64.7 % CERNER CH Comment: Interpretive Data Percent cell count reference ranges are not reported, since discordance with absolute values may lead to misinterpretation of CBC data. Current Interpretive Data was last revised on 2017. Testing performed by: [facility] [place] [address] Imm gran pct 0.4 % CERNER CH Comment: Interpretive Data Percent cell count reference ranges are not reported, since discordance with absolute values may lead to misinterpretation of CBC data. Current Interpretive Data was last revised on 2017. Testing performed by: [facility] [place] [address] Lymphocyte pct 22.1 % CERNER CH Comment: Interpretive Data Percent cell count reference ranges are not reported, since discordance with absolute values may lead to misinterpretation of CBC data. Current Interpretive Data was last revised on 2017. Testing performed by: [facility] [place] [address] Monocyte pct 8.6 % CERNER CH Comment: Interpretive Data Percent cell count reference ranges are not reported, since discordance with absolute values may lead to misinterpretation of CBC data. Current Interpretive Data was last revised on 2017. Testing performed by: [facility] [place] [address] Eosinophil pct 3.8 % CERNER CH Comment: Interpretive Data Percent cell count reference ranges are not reported, since discordance with absolute values may lead to misinterpretation of CBC data. Current Interpretive Data was last revised on 2017. Testing performed by: [facility] [place] [address] Basophil pct 0.4 % ROSHNI JOHN Comment: Interpretive Data Percent cell count reference ranges are not reported, since discordance with absolute values may lead to misinterpretation of CBC data. Current Interpretive Data was last revised on 2017. Testing performed by: [facility] [place] [address] Blood 06/03/2025 8:52 AM CDT 06/03/2025 8:52 AM CDT Alonso Antunez [facility] LAB BLOOD ORDERABLES Krysten sheffield Result ROSHNI [address] Department [place] [address] * (ABNORMAL) CBC with auto differential (06/03/2025 8:52 AM CDT) WBC 9.74 3.80 - 9.90 K/cumm Comment:Testing performed by : [facility] [place] [address] Hgb 10.3(L) 11.9 - 15.5 g/dL ROSHNI Comment:Testing performed by : [facility] [place] [address] Hct 34.0(L) 35.6 - 45.5 % ROSHNI Comment:Testing performed by : [facility] [place] [address] Plt 249 150 - 400 K/cumm ROSHNI JOHN Comment:Testing performed by : [facility] [place] [address] MPV 9.4 9.1 - 12.3 fL ROSHNI JOHN Comment:Testing performed by : [facility] [place] [address] RBC 4.47 3.90 - 5.20 M/cumm ROSHNI JOHN Comment:Testing performed by : [facility] [place] [id number] MCV 76.1(L) 81.3 - 96.4 fL ROSHNI Comment:Testing performed by : [facility] [place] [address] MCH 23.0(L) 27.1 - 33.3 pg ROSHNI CH Comment:Testing performed by : [facility] [place] [address] MCHC 30.3(L) 32.3 - 35.7 g/dL ROSHNI JOHN Comment:Testing performed by : [facility] [place] [address] RDW CV 15.1(H) 11.1 - 14.9 % ROSHNI JOHN Comment:Testing performed by : [facility] [place] [address] RDW SD 41.0 35.7 - 48.1 fL ROSHNI JOHN Comment:Testing performed by : [facility] [place] [address] NRBC abs 0.00 0.00 - 0.01 K/cumm ROSHNI JOHN Comment:Testing performed by : [facility] [place] [address] ANC Prelim 6.30 1.50 - 6.50 K/cumm ROSHNI JOHN Comment: Interpretive Data The rapid ANC is a preliminary automated count and may vary from the final ANC (Neut Abs) reported in the WBC differential that follows. Current interpretive data was last revised 2024. Testing performed by: [facility] [place] [address] Blood 06/03/2025 8:52 AM CDT 06/03/2025 8:52 AM CDT Alonso Antunez [facility] LAB BLOOD ORDERABLES Krysten sheffield Result ROSHNI JOHN [address] [place] [address] * Folate (06/03/2025 8:52 AM CDT) Folic acid 11.6 >=5.0 ng/mL Comment:Hemolysis present. R esults may be affected. Blood 06/03/2025 8:52 AM CDT 06/03/2025 9:34 AM CDT Brennen Maldonado MD LAB BLOOD ORDERABLES Fin al Result Performing Organization Address City/[facility] Co de Phone Number ROSHNI [address] [place] [address] * Vitamin B12 (06/03/2025 8:52 AM CDT) Pathologist [facility] Vitamin B12 241 230 - 1,250 pg/mL Blood 06/03/2025 8:52 AM CDT 06/03/2025 9:34 AM CDT Brennen Maldonado MD LAB BLOOD ORDERABLES Fin al Result Performing Organization Address [facility] Phone Number ROSHNI [address] [place] [address] * (ABNORMAL) Comprehensive metabolic panel (06/03/2025 8:52 AM CDT) [facility] Sodium 140 135 - 145 mmol/L Comment:Testing performed by : [facility] [place] [address] Potassium, pl 4.6 3.3 - 4.9 mmol/L CERNER CH Comment:Testing performed by : [facility] [place] [address] Chloride 105 97 - 110 mmol/L CERNER CH Comment:Testing performed by : [facility] [place] [address] CO2 23 22 - 32 mmol/L CERNER CH Comment:Testing performed by : [facility] [place] [address] Anion gap 12 2 - 15 mmol/L CERNER CH Comment:Testing performed by : [facility] [place] [address] BUN 28(H) 6 - 25 mg/dL CERNER CH Comment:Testing performed by : [facility] [place] [address] Creatinine 1.48(H) 0.60 - 1.10 mg/dL CERNER CH Comment:Testing performed by : [facility] [place] [address] Glucose 99 70 - 199 mg/dL CERNER CH Comment: [...] was last revised 2022. Testing performed by: [facility] [place] [address] Calcium 9.5 8.5 - 10.3 mg/dL CERNER CH Comment:Testing performed by : [facility] [place] [address] Bilirubin, total 0.4 0.1 - 1.2 mg/dL CERNER CH Comment:Testing performed by : [facility] [place] [address] Protein, pl 7.0 6.5 - 8.5 g/dL CERNER CH Comment:Testing performed by : [facility] [place] [address] Albumin 4.3 3.5 - 5.0 g/dL CERNER CH Comment:Testing performed by : [facility] [place] [address] Alk phos 78 40 - 130 Units/L CERNER CH Comment:Testing performed by : [facility] [place] [address] ALT 13 7 - 45 Units/L CERNER CH Comment:Testing performed by : [facility] [place] [address] AST 22 10 - 45 Units/L CERNER CH Comment:Testing performed by : [facility] [place] [address] Blood 06/03/2025 8:52 AM CDT 06/03/2025 8:52 AM CDT Alonso Antunez [facility] LAB BLOOD ORDERABLES Krysten sheffield Result [facility] [address] [address] Department of Laboratories [place] [id number] * Lipid panel (01/20/2019 2:19 AM CDT) [...] LAB BLOOD ORDERABLES Final Resu lt ROSHNI [address] [address] [place] [address] * (ABNORMAL) Hemoglobin A1c (12/31/2018 [...] and children were not included. (Diabetes Care 31:1538-9667, 2008). The eAG is not equivalent to a fasting glucose. Blood specimen (specimen) 12/31/2018 1:30 PM CDT 12/31/2018 3:16 PM CDT Narrative ROSHNI JOHN - 12/31/2018 5:03 PM CDT Jeremias Grewal MD LAB BLOOD ORDERABLES Final R esult ROSHNI [address] [address] [place] [address] from Last 3 Months or Most Recently Relevant to Health Maintenance Insurance MEDICARE [facility] [place] [address] MEDICARE [facility] MEDICARE MEDICARE [facility] Advance Directives For more information, please contact: [phone] * Full Code (Latest Code Status on File) Date Activated Date Inactivated Comments 01/29/2019 6:44 PM 02/08/2019 10:55 PM * Full Code Date Activated Date Inactivated Comments 01/18/2019 2:27 PM 01/29/2019 6:14 PM Care Teams Transmissions Systems Operator Relationship Specialty Start Date End Date Maurice Daniels MD PCP - General 12/05/17 Jeremias Grewal MD Surgeon Cardiothoracic Surgery 10/07/19 Brennen Maldonado MD [address] [place] [address] Consulting Physician Hematology and Oncology 05/18/23 Alonso Antunez DNP [address] [place] [address] Nurse Practitioner Hematology and Oncology 05/18/23 Dejuan Butterfield MD [address] [facility] [address] [place] [address] Referring Physician Ophthalmology 01/11/24 John Avila MD [address] [facility] [address] [place] [address] Referring Physician Obstetrics and Gynecology 05/27/24 Vin Oliver MD [address] [facility] [address] Referring Physician Psychiatry 05/27/24 [place] [address] [address] Consulting Physician Cardiology 05/27/24 Prabhu Harp NP [address] [facility] [address] [place] [address] Nurse Practitioner Sleep Medicine 05/27/24
--- OUTSIDE RECORDS SUMMARY | 2025-07-24 11:43 | XMS_ITS | Patient Health Record ---
Author Organization [facility] Office Address [address] [facility] [address] [place] [address] Care Team Providers Care Mri Specialist Name Role Phone Mike Valverde Unavailable [phone] Reason For Referral No Information Medications Medication SIG (Take, Route, Frequency, Duration) Notes Start Date End Date Status Ergocalciferol 1.25 MG (75945 UT) 1 capsule Orally Once a week; Duration: 90 days 02/07/2025 Active Calcitriol 0.25 MCG 1 capsule Orally Onc e a day; Duration: 90 day(s) 02/07/2025 11/04/2025 Active Problems Problem Type SNOMED Code ICD Code Onset Dates Problem Status W/U Status Risk Notes Problem Diabetic renal disease (437116605) Type 2 diabetes mellitus with diabetic chronic kidney disease (E11.22) Active confirmed Problem Hyperlipidemia (54871262) Hyperlipidemia, unspecified (E78.5) Active confirmed Problem Insomnia (343165280) Insomnia, unspecified (G47.00) Active confirmed Problem Uncomplicated moderate persistent asthma (529196437) Moderate persistent asthma, uncomplicated (J45.40) Active confirmed Problem Gastro-esophageal reflux disease without esophagitis (931047433) Gastro-esophagea l reflux disease without esophagitis (K21.9) Active confirmed Problem Constipation (80210925) Constipation, unspecified (K59.00) Active confirmed Problem Proteinuria (79869456) Proteinuria, unspecified (R80.9) Active confirmed Problem Essential hypertension (39185083) Essential (primary) hypertension (I10) Active confirmed Problem Chronic kidney disease stage 3B (disorder) (772853136) Chronic kidney disease, stage 3b (N18.32) Active confirmed Problem Coronary artery disease (88816637) CAD (coronary artery disease) (I25.10) Active confirmed Encounters Encounter Location Date Provider Diagnosis [place] [facility] [address] [facility] [address] [place] [address] 01/17/2025 Mike Valverde Chronic kidney disease, stage 3 unspecified N18.30 ; Type 2 diabetes mellitus with diabetic chronic kidney disease E11.22 ; Essential (primary) hypertension I10 and Hyperlipidemia, unspecified E78.5 [place] [facility] [address] [place] [address] 02/07/2025 Mike Valverde Chronic kidney disease, stage 3 unspecified N18.30 ; Type 2 diabetes mellitus with diabetic chronic kidney disease E11.22 ; Essential (primary) hypertension I10 ; Hyperlipidemia, unspecified E78.5 ; CAD (coronary artery disease) I25.10 ; Vasculitis limited to the skin, unspecified L95.9 and Gastro-esophageal reflux disease without esophagitis K21.9 [place] [facility] [address] [place] [address] 03/21/2025 Mike Valverde Chronic kidney disease, stage 3 unspecified N18.30 ; Type 2 diabetes mellitus with diabetic chronic kidney disease E11.22 ; Essential (primary) hypertension I10 ; Hyperlipidemia, unspecified E78.5 ; CAD (coronary artery disease) I25.10 ; Gastro-esophageal reflux disease without esophagitis K21.9 and Moderate persistent asthma, uncomplicated J45.40 [place] [facility] [address] [place] [address] 06/06/2025 Mike Valverde Chronic kidney disease, stage 3b N18.32 ; Type 2 diabetes mellitus with diabetic chronic kidney disease E11.22 ; Essential (primary) hypertension I10 ; Hyperlipidemia, unspecified E78.5 ; CAD (coronary artery disease) I25.10 ; Gastro-esophageal reflux disease without esophagitis K21.9 ; Moderate persistent asthma, uncomplicated J45.40 ; Proteinuria, unspecified R80.9 ; Constipation, unspecified K59.00 and Insomnia, unspecified G47.00 [place] [facility] [address] [place] [address] 02/07/2025 Mike Valverde Assessments Encounter Date Diagnosis [...] disease, stage 3 unspecified (ICD-10 - N18.30) 06/06/2025 Chronic kidney disease, stage 3b (ICD-10 - N18.32) 06/06/2025 Type 2 diabetes mellitus with diabetic chronic kidney disease (ICD-10 - E11.22) 03/21/2025 Essential (primary) hypertension (ICD-10 - I10) 02/07/2025 Essential (primary) hypertension (ICD-10 - I10) 01/17/2025 Type 2 diabetes mellitus with diabetic chronic kidney disease (ICD-10 - E11.22) 01/17/2025 Essential (primary) hypertension (ICD-10 - I10) 02/07/2025 Hyperlipidemia, unspecified (ICD-10 - E78.5) 03/21/2025 Hyperlipidemia, unspecified (ICD-10 - E78.5) 06/06/2025 Essential (primary) hypertension (ICD-10 - I10) 06/06/2025 Hyperlipidemia, unspecified (ICD-10 - E78.5) 02/07/2025 CAD (coronary artery disease) (ICD-10 - I25.10) 03/21/2025 CAD (coronary artery disease) (ICD-10 - I25.10) 01/17/2025 Hyperlipidemia, unspecified (ICD-10 - E78.5) 02/07/2025 Vasculitis limited to the skin, unspecified (ICD-10 - L95.9) 03/21/2025 Gastro-esophageal reflux disease without esophagitis (ICD-10 - K21.9) 06/06/2025 CAD (coronary artery disease) (ICD-10 - [...] Name:Mike Valverde , 07/30/2025 02:00:00 PM, [address] [facility] [address], [address],
[2025-07-24 12:10] LABS: Alanine Aminotransferase 18 U/L (6-35); Albumin Level 4.3 g/dL (3.5-5.1); Alkaline Phosphatase 97 U/L (38-126); Anion Gap 6 mmol/L (4-12); Aspartate Amino Transferase 34 U/L (14-36); Bilirubin,Total 0.5 mg/dL (0.2-1.3); Blood Urea Nitrogen 24 mg/dL (7-17); Calcium 9.7 mg/dL (8.4-10.2); Carbon Dioxide 26 mmol/L (22-30); Chloride 104 mmol/L (98-107); Estimated Glomerular Filt Rate 37; Glucose 135 mg/dL (65-110); Magnesium 2.0 mg/dL (1.6-2.3); Potassium 5.1 mmol/L (3.4-5.0); Sodium 136 mmol/L (137-145); Total Protein 7.5 g/dL (6.3-8.2); Uric Acid 5.7 mg/dL (2.5-7.5)
[2025-07-25 07:09] LABS: eGFR 27 (>59)
== END 2025-07-24 10:26 | disposition home or self-care (01) ==
PROVIDERS: PCP Internal Medicine; Referring Provider Internal Medicine; Visit Provider Specialist
DX: E11.22 Type 2 diabetes mellitus with diabetic chronic kidney disease (principal); I12.9 Hypertensive chronic kidney disease with stage 1 through stage 4 chronic kidney disease, or unspecified chronic kidney disease; N18.30 Chronic kidney disease, stage 3 unspecified; D64.9 Anemia, unspecified; E11.65 Type 2 diabetes mellitus with hyperglycemia; E21.3 Hyperparathyroidism, unspecified; E55.9 Vitamin D deficiency, unspecified; R82.90 Unspecified abnormal findings in urine; N39.0 Urinary tract infection, site not specified; R35.0 Frequency of micturition; R80.9 Proteinuria, unspecified; R60.9 Edema, unspecified
CPT/HCPCS: 36415; 80053; 81003; 82043; 82306; 82570; 82610; 83735; 83970; 84156; 84550; 85025; 85652